=== PATIENT | male | born 1940 | race Caucasian/White ===

== ENCOUNTER 2017-07-31 11:28 | Observation (INO) | payer OTHER ==
--- OUTSIDE RECORDS SUMMARY | 2017-07-31 11:30 | XMS REPORT | Clinical Summary ---
:1940 Author Organization [facility] Address [address] [address] Phone Care Team Providers Name Role Phone Unavailable Primary Care Provider Unavailable Allergies Active Allergy Reactions Severity Noted Date Comments Iodine And Iodide Containing Products Hives 09/25/2013 Current Medications Prescription Sig. Disp. Refills Start End Date Status Date multivitamin capsule Take 1 capsule Active by mouth daily. metoprolol (TOPROL-XL) Take 50 mg by Active 50 MG 24 hr tablet mouth 2 (two) times daily. folic acid (FOLVITE) Take 400 mcg Active 800 MCG tablet by mouth daily. lisinopril Take 2.5 mg by Active (PRINIVIL,ZESTRIL) 2.5 mouth daily. MG tablet cyanocobalamin, Place 1 tablet Active vitamin B-12, (VITAMIN under the B-12) 1,000 mcg Subl tongue. omega-3 fatty Take 1 g by Active acids-fish oil mouth daily. 340-1,000 mg Cap per capsule allopurinol (ZYLOPRIM) Take 100 mg by Active 100 MG tablet mouth daily . cycloSPORINE Place 1 drop Active (RESTASIS) 0.05 % into both eyes ophthalmic emulsion every 12 (twelve) hours. travoprost (TRAVATAN Place 1 drop Active Z) 0.004 % Drop into both eyes ophthalmic drops nightly. rivaroxaban (XARELTO) Take 15 mg by Active 15 mg Tab tablet mouth daily as needed Take only when traveling on airplane. . VIT A/VIT C/VIT Take 1 capsule Active E/ZINC/COPPER (ICAPS by mouth daily AREDS ORAL) A-Red capsule daily. . mycophenolate Take 1 capsule 180 capsule 3 Active (CELLCEPT) 250 mg (250 mg total) 6 capsuleIndications: by mouth 2 Status post liver (two) times transplantation (HCC) daily. mycophenolate Take 1 capsule 180 capsule 3 02/03/20 Active (CELLCEPT) 250 mg (250 mg total) 7 18 capsuleIndications: by mouth 2 Status post liver (two) times transplantation (HCC) daily. sirolimus (RAPAMUNE) 1 Take 1 tablet 90 tablet 3 04/27/19 Active MG tablet (1 mg total) 8 19 by mouth daily. mycophenolate Take 1 capsule 180 capsule 3 02/03/20 Discontinued (CELLCEPT) 250 mg (250 mg total) 4 17 capsuleIndications: by mouth 2 Status post liver (two) times transplantation (HCC) daily. sirolimus (RAPAMUNE) 1 Take 1 tablet 90 tablet 3 04/27/19 Discontinued MG tabletIndications: (1 mg total) 5 18 Status post liver by mouth transplantation (HCC), daily. Immunosuppression (HCC), Chronic renal insufficiency, stage 2 (mild) sirolimus (RAPAMUNE) 1 Take 1 tablet 90 tablet 3 04/27/19 Discontinued MG tabletIndications: (1 mg total) 7 18 Status post liver by mouth transplantation (HCC) daily. sirolimus (RAPAMUNE) 1 Take 1 tablet 90 tablet 3 04/25/19 Discontinued MG tablet (1 mg total) 7 18 by mouth daily. sirolimus (RAPAMUNE) 1 Take 1 tablet 90 tablet 3 04/27/19 Discontinued MG tablet (1 mg total) 8 18 by mouth daily. sirolimus (RAPAMUNE) 1 Take 1 tablet 90 tablet 3 04/27/19 Discontinued MG tablet (1 mg total) 8 18 by mouth daily. 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 Ulcerative colitis (HCC) 10/13/2014 Last Assessment & Plan: He had ulcerative colitis s/p colectomy with J-pouch. We have referred him to a [facility] IBD specialist. Chronic renal insufficiency 10/13/2014 Last Assessment & Plan: He is followed by Dr. 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 Continue follow-up. 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 Synthetic function of the allograft is well preserved. HTN (hypertension) 09/26/2013 Last Assessment & Plan: Blood pressures elevated. Patient has follow-up with Dr. Taylor. Diabetes (HCC) 09/26/2013 Last Assessment & Plan: Well controlled on current regimen. Immunosuppression (HCC) 09/26/2013 Last Assessment & Plan: He is on sirolimus and Cellcept. Screening for skin cancer 09/26/2013 Last Assessment & Plan: Patient has regular follow up with a children's choir director to evaluate and biopsy abnormal skin lesions. Screening for rectal cancer 09/26/2013 Last Assessment & Plan: Patient has regular surveillance. He sees Dr. Wilcox. He is due for sigmoidoscopy this upcoming year. Encounters Date Type Specialty Care Team Description 06/28/2017 Telephone Transplant Laurie, Lab Results Hepatology Shira Raymundo 06/16/2017 Orders Only Transplant Johan, Hepatology Milena Maier MD 05/02/2017 Orders Only Transplant Dori Duque, Hepatology RN 04/27/2017 Orders Only Transplant Dori Duque, Hepatology RN 04/25/2017 Refill Transplant Dori Duque, Hepatology RN 04/23/2017 Refill Transplant Trenton Galvan Hepatology MD 02/02/2017 Telephone Transplant Dori Duque, Medication Refill Hepatology RN (Cellcept) 01/30/2017 Refill Transplant Teagan Brian Hepatology MD Vivek 11/01/2016 [facility] Teagan Brian Status post liver Encounter MD Vivek transplantation (HCC);Immunosuppressio n (HCC);Chronic renal insufficiency, unspecified stage;Complication of transplanted liver, unspecified complication (HCC) 11/01/2016 Hospital Radiology Teagan Brian Status post liver Encounter MD Vivek transplantation (HCC);Immunosuppressio n (HCC);Chronic renal insufficiency, unspecified stage;Complication of transplanted liver, unspecified complication (HCC) 11/01/2016 Follow-Up Transplant Teagan Brian Status post liver Hepatology MD Vivek transplantation (HCC) (Primary Dx);Immunosuppression (HCC);Skin cancer;Chronic renal insufficiency, unspecified stage;Ulcerative colitis with complication, unspecified location (HCC) 11/01/2016 Outside Orders Teagan Brian MD 10/31/2016 Telephone Transplant Laurie, Lab Results Hepatology Shira M 10/24/2016 Orders Only Transplant Trenton Galvan Hepatology 08/31/2016 Orders Only Transplant Dori Duque, Status post liver Hepatology RN transplantation (HCC) (Primary Dx);Immunosuppression (HCC);Chronic renal insufficiency, unspecified stage;Complication of transplanted liver, unspecified complication (HCC) after 07/30/2016 Social History Tobacco Use Types Packs/Day Years Used Date Never Smoker Alcohol Use Drinks/Week oz/Week Comments No Sex Assigned at Date Recorded Not on file Last Filed Vital Signs Vital Sign Reading Time Taken Blood Pressure 136/85 11/01/2016 8:31 AM CDT Pulse 90 11/01/2016 8:31 AM CDT Temperature 36.3 C (97.3 F) 11/01/2016 8:31 AM CDT Respiratory Rate 16 11/01/2016 8:31 AM CDT Oxygen Saturation 98% 11/01/2016 8:31 AM CDT Inhaled Oxygen Concentration - - Weight 90.1 kg (198 lb 11.2 oz) 11/01/2016 8:31 AM CDT Height 177.8 cm (5' 10") 11/01/2016 8:31 AM CDT Body Mass Index 28.51 11/01/2016 8:31 AM CDT Plan of Treatment Health Maintenance Due Date Last Done Comments INFLUENZA VACCINE 01/08/2018 Results Sirolimus level (06/16/2017 9:26 AM)Only the most recent of2 resultswithin the time period is included. Component Value Ref Range Rapamycin Trough 4.6 3.0 - 18.0 mcg/L Comment: This test was developed and its analytical performance characteristics have been determined by [employer] [facility]. It has not been cleared or approved by the US Food and Drug Administration. This assay has been validated pursuant to the CLIA regulations and is used for clinical purposes. Specimen Performing Laboratory [facility] [address] [facility] [place] [address] Narrative FASTING:YES FASTING: YES CBC with platelet count + automated diff (06/16/2017 9:26 AM)Only the most recent of2 resultswithin the time period is included. Component Value Ref Range WBC 5.6 3.8 - 10.8 Thousand/uL RBC 4.96 4.20 - 5.80 Million/uL Hemoglobin 14.5 13.2 - 17.1 g/dL Hematocrit 42.9 38.5 - 50.0 % MCV 86.5 80.0 - 100.0 fL MCH 29.2 27.0 - 33.0 pg MCHC 33.8 32.0 - 36.0 g/dL RDW 13.6 11.0 - 15.0 % Platelets 175 140 - 400 Thousand/uL MPV 9.9 7.5 - 12.5 fL # Neutros 3814 1500 - 7800 cells/uL # Lymphs 1305 850 - 3900 cells/uL # Monos 370 200 - 950 cells/uL # Eos 90 15 - 500 cells/uL # Baso 22 0 - 200 cells/uL % Neutros 68.1 % % Lymphs 23.3 % % Monos 6.6 % % Eos 1.6 % % Baso 0.4 % Specimen Performing Laboratory [facility] [address] [place] [id number] Narrative FASTING:YES FASTING: YES Magnesium (06/16/2017 9:26 AM)Only the most recent of2 resultswithin the time period is included. Component Value Ref Range Magnesium, Serum 1.8 1.5 - 2.5 mg/dL Specimen Performing Laboratory [facility] [address] [place] [id number] Narrative FASTING:YES FASTING: YES Hepatic function panel (06/16/2017 9:26 AM)Only the most recent of2 resultswithin the time period is included. Component Value Ref Range Protein, Total, Serum 6.5 6.1 - 8.1 g/dL Albumin 3.9 3.6 - 5.1 g/dL GLOBULIN ([facility]) 2.6 1.9 - 3.7 g/dL (calc) Albumin Globulin Ratio 1.5 1.0 - 2.5 (calc) Bilirubin, Total 0.8 0.2 - 1.2 mg/dL Bilirubin, Direct 0.2 < OR=0.2 mg/dL Bilirubin, Indirect 0.6 0.2 - 1.2 mg/dL (calc) Alkaline Phosphatase, S 68 40 - 115 U/L AST (SGOT) 15 10 - 35 U/L ALT (SGPT) 10 9 - 46 U/L Specimen Performing Laboratory [facility] [address] [facility] [place] [address] Narrative FASTING:YES FASTING: YES Basic Metabolic Panel (06/16/2017 9:26 AM)Only the most recent of2 resultswithin the time period is included. Component Value Ref Range Glucose 94 65 - 99 mg/dL Comment: Fasting reference interval BUN 29 (H) 7 - 25 mg/dL Creatinine 1.76 (H) 0.70 - 1.18 mg/dL Comment: For patients >49 years of age, the reference limit for Creatinine is approximately 13% higher for people identified as -Grenadian. eGFR If NonAfricn Am 37 (L) > OR=60 mL/min/1.73m2 eGFR If Africn Am 43 (L) > OR=60 mL/min/1.73m2 BUN/Creatinine Ratio 16 6 - 22 (calc) Sodium 140 135 - 146 mmol/L Potassium, Serum 4.3 3.5 - 5.3 mmol/L Chloride 110 98 - 110 mmol/L Carbon Dioxide, Total 23 20 - 31 mmol/L Calcium, Serum 8.8 8.6 - 10.3 mg/dL Specimen Performing Laboratory [facility] [address] [facility] [place] [address] Narrative FASTING:YES FASTING: YES US abdominal with doppler (11/01/2016 10:50 AM) Specimen Performing Laboratory [facility] Narrative FINAL REPORT Ultrasound of the Abdomen and Doppler evaluation Clinical History: Liver transplant Discussion: Sonographic evaluation of the abdomen is performed. In addition, color Doppler and spectral wave form analysis evaluations of the abdominal vasculature are performed. Liver: 14 point 4 cm in length at the right midclavicular line. Normal echogenicity.No lesion is identified by ultrasound.Main portal vein diameter 1.1 cm. Biliary tree:Common duct 7 mm.No biliary dilatation Gallbladder:Absent. Pancreas: Partially visualized, unremarkable. Ascites:None seen Spleen: 11.5 cm in length. Kidneys: Right kidney 11.5 x 5.3 x 5.3 cm.Left kidney 10.2 x 5.2 x 5 cm.Mildly increased cortical echogenicity. Both kidneys demonstrate cortical thinning. In the right kidney, there is a 1.7 x 1.4 x 1.6 cm cyst. In the left kidney, there is a 1.7 x 0.8 x 1.3 cm cyst, and a 6 mm nonobstructive stone with shadowing.No hydronephrosis. IVC/Aorta:Segments partially seen.Unremarkable Doppler: The peak systolic velocity of the main portal vein is 29 cm/sec, within normal limits. The main portal, right portal, and left portal veins demonstrate normal direction of flow, hepatopetal. The splenic vein is visualized at the portal venous confluence and demonstrate normal direction of flow, hepatopetal. The proper hepatic, right hepatic, and left hepatic arteries demonstrate normal arterial wave forms and resistive indices, measuring 0.59, 0.62 and 0.58 respectively. The proper hepatic artery demonstrates normal acceleration time, acceleration index, and systolic upstroke. Segments of the right hepatic, middle hepatic, and left hepatic veins visualized demonstrate flow and phasic venous waveforms. Impression: Unremarkable sonographic and Doppler evaluation of the transplanted liver. Echogenic kidneys with cortical thinning, suggestive of medical renal disease. There is a 6 mm nonobstructive stone in the left kidney. Signed: Filipe Guzman MD Report Verified Date/Time:11/01/2016 15:55:46 Reading Location: [address] Radiology Reading Room Procedure Note Interface, External Ris In - 11/01/2016 3:57 PM CDT FINAL REPORT Ultrasound of the Abdomen and Doppler evaluation Clinical History: Liver transplant Discussion: Sonographic evaluation of the abdomen is performed. In addition, color Doppler and spectral wave form analysis evaluations of the abdominal vasculature are performed. Liver: 14 point 4 cm in length at the right midclavicular line. Normal echogenicity. No lesion is identified by ultrasound. Main portal vein diameter 1.1 cm. Biliary tree: Common duct 7 mm. No biliary dilatation Gallbladder: Absent. Pancreas: Partially visualized, unremarkable. Ascites: None seen Spleen: 11.5 cm in length. Kidneys: Right kidney 11.5 x 5.3 x 5.3 cm. Left kidney 10.2 x 5.2 x 5 cm. Mildly increased cortical echogenicity. Both kidneys demonstrate cortical thinning. In the right kidney, there is a 1.7 x 1.4 x 1.6 cm cyst. In the left kidney, there is a 1.7 x 0.8 x 1.3 cm cyst, and a 6 mm nonobstructive stone with shadowing. No hydronephrosis. IVC/Aorta: Segments partially seen. Unremarkable Doppler: The peak systolic velocity of the main portal vein is 29 cm/sec, within normal limits. The main portal, right portal, and left portal veins demonstrate normal direction of flow, hepatopetal. The splenic vein is visualized at the portal venous confluence and demonstrate normal direction of flow, hepatopetal. The proper hepatic, right hepatic, and left hepatic arteries demonstrate normal arterial wave forms and resistive indices, measuring 0.59, 0.62 and 0.58 respectively. The proper hepatic artery demonstrates normal acceleration time, acceleration index, and systolic upstroke. Segments of the right hepatic, middle hepatic, and left hepatic veins visualized demonstrate flow and phasic venous waveforms. Impression: Unremarkable sonographic and Doppler evaluation of the transplanted liver. Echogenic kidneys with cortical thinning, suggestive of medical renal disease. There is a 6 mm nonobstructive stone in the left kidney. Signed: Filipe Guzman MD Report Verified Date/Time: 11/01/2016 15:55:46 Reading Location: [address] Radiology Reading Room chest 2 views (11/01/2016 10:01 AM) Specimen Performing Laboratory [facility] Narrative FINAL REPORT TECHNIQUE: Frontal and lateral chest radiographs dated 11/01/2016. CLINICAL HISTORY: Liver transplant COMPARISON STUDY: Chest radiograph dated 11/02/2015 FINDINGS: Lungs are clear. No pleural effusion or pneumothorax. Cardiomediastinal silhouette is normal in size. No pulmonary edema. Bones appear osteopenic. No fracture. IMPRESSION: Clear lungs. Signed: Maddy Myrick MD Report Verified Date/Time:11/01/2016 11:40:45 Reading Location: [facility] Radiology Reading Room Procedure Note Interface, External Ris In - 11/01/2016 11:42 AM CDT FINAL REPORT TECHNIQUE: Frontal and lateral chest radiographs dated 11/01/2016. CLINICAL HISTORY: Liver transplant COMPARISON STUDY: Chest radiograph dated 11/02/2015 FINDINGS: Lungs are clear. No pleural effusion or pneumothorax. Cardiomediastinal silhouette is normal in size. No pulmonary edema. Bones appear osteopenic. No fracture. IMPRESSION: Clear lungs. Signed: Maddy Myrick MD Report Verified Date/Time: 11/01/2016 11:40:45 Reading Location: [facility] Radiology Reading Room Lipid panel (10/24/2016 7:27 AM) Component Value Ref Range Cholesterol, Total 180 125 - 200 mg/dL HDL Cholesterol 27 (L) > OR=40 mg/dL Triglycerides 242 (H) <150 mg/dL LDL Cholesterol 105 <130 mg/dL (calc) Comment: Desirable range <100 mg/dL for patients with CHD or diabetes and <70 mg/dL for diabetic patients with known heart disease. Chol/HDL Ratio 6.7 (H) < OR=5.0 (calc) Non-HDL Cholesterol 153 mg/dL (calc) Comment: Target for non-HDL cholesterol is 30 mg/dL higher than LDL cholesterol target. Specimen Performing Laboratory [facility] [address] [place] [address] Narrative FASTING:YES after 07/30/2016
--- NOTE | 2017-07-31 12:40 | RAD REPORT ---
EXAM DESCRIPTION: RAD - Chest Single View - 07/31/2017 12:28 pm CLINICAL HISTORY: Chest pain COMPARISON: None. TECHNIQUE: AP portable chest image was obtained 1213 hours . FINDINGS: Lungs are clear. Heart and vasculature are normal. No measurable pleural effusion and no p neumothorax. No gross bony abnormality seen. No acute aortic findings suspected. IMPRESSION: No acute cardiopulmonary process.
[2017-07-31 13:27] LABS: Absolute Lymphocytes (CBC) 1.4 K/uL (0.7-4.9); Absolute Monocytes 0.6 K/uL (0.1-1.3); Absolute Neutrophil 8.9 K/uL (1.8-8.0); Basophils % 0.4 % (0-1.3); Hematocrit 42.7 % (39.6-49.0); Lymphocytes % 12.6 % (15.3-44.8); MCH 29.3 pg (27.0-35.0); MCV 89.7 fL (80-100); MPV 7.7 fL (7.6-11.3); Monocytes % 5.3 % (3.3-12.3); RBC Red Blood Cell Count 4.76 M/uL (4.33-5.43)
[2017-07-31 13:28] LABS: Potassium 4.8 mEq/L (3.6-5.0)
[2017-07-31 13:34] LABS: Albumin 3.5 g/dL (3.2-5.5); Bilirubin Direct 0.1 mg/dL (0-0.2); Bilirubin Total 0.7 mg/dL (0.3-1.2); Magnesium 1.9 mg/dL (1.8-2.5); Protein, Total 6.8 g/dL (6.0-8.3)
[2017-07-31 13:37] LABS: CKMB Creatine Kinase MB 2.4 ng/ml (0.3-4.0)
--- NOTE | 2017-07-31 13:51 | EKG ---
Test Date: 2017-07-31 Test Time: 11:58:27 Apartment Leasing Manager: YOLI MEASUREMENT RESULTS: Intervals: Rate: 44 TX: 208 QRSD: 92 QT: 422 QTc: 360 [place]: P: 63 TX: 208 QRS: 54 T: 73 INTERPRETIVE STATEMENTS: Marked sinus bradycardia with marked sinus arrhythmia Incomplete right bundle branch block Abnormal ECG Compared to ECG 06/05/2002 20:48:00 Incomplete right bundle-branch block now present Sinus rhythm no longer present Myocardial infarct finding no longer present Electronically Signed On 07-31-17 13:50:49 CDT by Solomon Nolan
[2017-07-31] MEDS ORDERED: MORPHINE 4 MG/ML SYR ONE ×2 (14:18→14:34)
--- NOTE | 2017-07-31 14:54 | ER ---
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 Transition of care: patient was not received from another setting of care. Onset of symptoms was July 31, 2017. Initial Sepsis Screen: Does the patient meet any 2 criteria? No. Patient's initial sepsis screen is negative. Does the patient have a suspected source of infection? No. Patient's initial sepsis screen is negative. Care prior to arrival: IV initiated. 20 GA, in the right wrist, Glucose check: 154 Oxygen administered. via nasal cannula. 11:41 Method Of Arrival: EMS: [facility] iw 11:41 Acuity: LIV 3 iw Historical: - Allergies: 11:50 Iodinated Contrast Media - IV Dye; iw - Home Meds: 11:50 Prograf Oral [Active]; iw 16:36 tamsulosin 0.4 mg oral cp24 1 cap once daily [Active]; metoprolol succinate 25 mg oral ph Tb24 1 tab once daily [Active]; lisinopril 2.5 mg Oral tab 1 tab once daily [Active]; allopurinol 100 mg Oral tab 1 tab 2 times per day [Active]; sirolimus 1 mg oral tab 1 tabs once daily [Active]; CellCept 250 mg Oral cap 1 caps daily [Active]; - PMHx: 11:50 Renal Disease; colon cancer; pulmonary embolism; iw - PSHx: 11:50 Liver Transplant; ileo pouch; Hernia repair; Appendectomy; rectum removed; iw Tonsillectomy; - Immunization history:: Adult Immunizations not up to date, . - Social history:: Smoking status: Patient/guardian denies using tobacco. Screenin:33 Abuse screen: Denies threats or abuse. Denies injuries from another. Nutritional ph screening: No deficits noted. Tuberculosis screening: No symptoms or risk factors identified. Fall Risk None identified. Assessment: 12:00 General: Appears in no apparent distress. comfortable, slender, well groomed, Behavior ph is calm, cooperative, appropriate for age, Denies fever, feeling ill, fatigue. Pain: Denies pain. Neuro: Level of Consciousness is awake, alert, obeys commands, Oriented to person, place, time, situation. Cardiovascular: Reports chest pain in L breast area EXHIBITS COORDINATOR, reports that pain has improved after pain medication administered by EMS Capillary refill < 3 seconds Patient's skin is warm and dry. Rhythm is irregular. Respiratory: Airway is patent Respiratory effort is even, unlabored, Respiratory pattern is regular, symmetrical, Denies shortness of breath. GI: No signs and/or symptoms were reported involving the gastrointestinal system. Derm: Skin is intact, is healthy with good turgor, Skin is pink, warm \\T\\ dry. Musculoskeletal: Circulation, motion, and sensation intact. Range of motion: limited in all extremities. 13:00 Reassessment: Patient appears in no apparent distress at this time. Patient and/or ph family updated on plan of care and expected duration. Pain level reassessed. Patient is alert, oriented x 3, equal unlabored respirations, skin warm/dry/pink. secured entrance monitor shows pt's HR dropping to 40's, pt reports that HR is usually 60's, ERP aware and at bedside, pt denies dizziness or SOB but reports that chest pain is returning, rates pain 4/10, at bedside. Vital Signs: 11:47 BP 144 / 79; Pulse 63; Resp 18; Temp 98.2; Pulse Ox 95% on R/A; Weight 85.73 kg; Height iw 5 ft. 10 in. (177.80 cm); Pain 0/10; 12:30 BP 124 / 62; Pulse 57; Resp 18; Pulse Ox 96% on R/A; ph 13:35 BP 132 / 70; Pulse 55; Resp 18; Pulse Ox 97% on R/A; Pain 4/10; ph 14:30 BP 148 / 90; Pulse 49; Resp 16; Pulse Ox 95% on R/A; ph 14:30 BP 151 / 64; Pulse 57; Resp 16; Pulse Ox 98% on R/A; ph 16:37 BP 134 / 72; Pulse 50; Resp 18; Temp 97.9; Pulse Ox 96% on R/A; ph 11:47 Body Mass Index 27.12 (85.73 kg, 177.80 cm) ED Course: 11:41 Patient arrived in ED. iw 11:46 Lavon Jimenez NP is PHCP. pm1 11:46 Sahil Gimenez MD is Attending Physician. pm1 11:46 Triage completed. iw 11:51 Arm band placed on. iw 12:02 EKG done, by cytotechnologist/cytology supervisor. reviewed by Lavon Jimenez NP. at1 12:25 X-ray completed. Portable x-ray completed in exam room. Patient tolerated procedure ml well. 12:26 XRAY Chest (1 view) In Process Unspecified. EDMS 13:04 Initial lab(s) drawn, by mi, sent to lab. Inserted saline lock: 20 gauge in left dh3 antecubital area, using aseptic technique. Blood collected. 13:04 IV discontinued, EMS IV right wrist. dh3 13:30 Yoselyn Olson, MAYLIN is Primary Nurse. ph 13:33 Patient has correct armband on for positive identification. Bed in low position. Call ph light in reach. Side rails up X 1. secured entrance monitor on. Pulse ox on. NIBP on. Warm blanket given. 14:54 Judah Rojas MD is Hospitalizing Provider. pm1 14:55 Urine collected: clean catch specimen, clear. dh3 16:18 Notified Nurse Practitioner and/or Physician Director Of Radio Services of a critical lab result(s), pt D-Dimer of 1495 to Lavon REESE. 16:33 Note: VQ SCAN COMPLETE. PT TOLERATED EXAM WELL. NO CHANGE. RETURNED TO ED. NURSE ml NOTIFIED. RT LEONIE(N), JOSE. Administered Medications: 14:49 Drug: morphine 4 mg Route: IVP; Site: left antecubital; ph Outcome: 14:54 Decision to Hospitalize by Provider. pm1 18:03 Patient left the ED. ph Signatures: Dispatcher [employer] EDNM Michelle Abernathy, MAYLIN RN pt Ramya Foster RN RN iw Samara Lancaster Amanda, knitted goods shaper EKG Tat1 Yoselyn Olson, RN RN ph Lvaon Jimenez, WARD SERVICE SUPERVISOR WARD SERVICE SUPERVISOR pm1 Janae Watkins 3
--- NOTE | 2017-07-31 14:55 | EDPHYS ---
Physician Documentation [facility] Name: Yoni Shi Age: 76 yrs Sex: Male : 1940 Arrival Date: 07/31/2017 Time: 11:41 Bed 13 Private MD: ED Physician Sahil Gimenez HPI: 07/31 12:00 This 76 yrs old Male presents to ER via EMS with complaints of Chest Pain. pm1 12:00 The patient or guardian reports chest pain that is located primarily in the anterior pm1 chest wall, left. Onset: just prior to arrival. The pain radiates to left back. Associated signs and symptoms: Pertinent positives: diaphoresis, nausea, shortness of breath, Pertinent negatives: abdominal pain, palpitations, vomiting. The chest pain is described as squeezing. Duration: The patient or guardian reports a single episode, that is still ongoing, but improving, 2/10 pain. Modifying factors: The symptoms are alleviated by NTG x 2 and fentanyl in route by EMS. Severity of pain: At its worst the pain was a 10 / 10 in the emergency department the pain has improved markedly, is a 2 / 10. EMS care prior to arrival includes: aspirin, nitroglycerin, x 2 fentanyl . The patient has experienced a previous episode, approximately 3 years ago, Similar symptoms to prior PE. The patient has been recently seen by a physician: the patient's primary care provider, Dr. Rojas with different complaint(s). 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 As he was leaving he started having severe 10/10 left sided chest pain radiating to his left back area. SOB and diaphoresis present with chest pain. Pain improved with medications, NTG and fentanyl, given by EMS on arrival. Historical: - Allergies: 11:50 Iodinated Contrast Media - IV Dye; iw - Home Meds: 11:50 Prograf Oral [Active]; iw 16:36 tamsulosin 0.4 mg oral cp24 1 cap once daily [Active]; metoprolol succinate 25 mg oral ph Tb24 1 tab once daily [Active]; lisinopril 2.5 mg Oral tab 1 tab once daily [Active]; allopurinol 100 mg Oral tab 1 tab 2 times per day [Active]; sirolimus 1 mg oral tab 1 tabs once daily [Active]; CellCept 250 mg Oral cap 1 caps daily [Active]; - PMHx: 11:50 Renal Disease; colon cancer; pulmonary embolism; iw - PSHx: 11:50 Liver Transplant; ileo pouch; Hernia repair; Appendectomy; rectum removed; iw Tonsillectomy; - Immunization history:: Adult Immunizations not up to date, . - Social history:: Smoking status: Patient/guardian denies using tobacco. ROS: 12:00 Constitutional: Negative for fever, chills, and weight loss, Eyes: Negative for injury, pm1 pain, redness, and discharge, ENT: Negative for injury, pain, and discharge, Neck: Negative for injury, pain, and swelling. 12:00 Abdomen/GI: Negative for abdominal pain, nausea, vomiting, diarrhea, and constipation, : Negative for injury, bleeding, discharge, and swelling, MS/Extremity: Negative for injury and deformity, Skin: Negative for injury, rash, and discoloration. 12:00 Neuro: Negative for headache, weakness, numbness, tingling, and seizure. 12:00 Cardiovascular: Positive for chest pain, Negative for edema, palpitations. 12:00 Respiratory: Positive for shortness of breath, Negative for cough, wheezing. 12:00 Back: Positive for of the left subscapular area, Radiated from left sided chest pain. Exam: 12:00 Constitutional: This is a well developed, well nourished patient who is awake, alert, pm1 and in no acute distress. Head/Face: Normocephalic, atraumatic. Eyes: Pupils equal round and reactive to light, extra-ocular motions intact. Lids and lashes normal. Conjunctiva and sclera are non-icteric and not injected. Cornea within normal limits. Periorbital areas with no swelling, redness, or edema. ENT: Nares patent. No nasal discharge, no septal abnormalities noted. Tympanic membranes are normal and external auditory canals are clear. Oropharynx with no redness, swelling, or masses, exudates, or evidence of obstruction, uvula midline. Mucous membranes moist. Neck: Trachea midline, no thyromegaly or masses palpated, and no cervical lymphadenopathy. Supple, full range of motion without nuchal rigidity, or vertebral point tenderness. No Meningismus. Chest/axilla: Normal chest wall appearance and motion. Nontender with no deformity. No lesions are appreciated. Cardiovascular: Regular rate and rhythm with a normal S1 and S2. No gallops, murmurs, or rubs. No pulse deficits. Respiratory: Lungs have equal breath sounds bilaterally, clear to auscultation and percussion. No rales, rhonchi or wheezes noted. No increased work of breathing, no retractions or nasal flaring. Abdomen/GI: Soft, non-tender, with normal bowel sounds. No distension or tympany. No guarding or rebound. No evidence of tenderness throughout. Back: No spinal tenderness. No costovertebral tenderness. Full range of motion. Skin: Warm, dry with normal turgor. Normal color with no rashes, no lesions, and no evidence of cellulitis. MS/ Extremity: Pulses equal, no cyanosis. Neurovascular intact. Full, normal range of motion. 12:00 Neuro: Orientation: is normal, Mentation: is normal, Motor: is normal, moves all fours. Vital Signs: 11:47 BP 144 / 79; Pulse 63; Resp 18; Temp 98.2; Pulse Ox 95% on R/A; Weight 85.73 kg; Height iw 5 ft. 10 in. (177.80 cm); Pain 0/10; 12:30 BP 124 / 62; Pulse 57; Resp 18; Pulse Ox 96% on R/A; ph 13:35 BP 132 / 70; Pulse 55; Resp 18; Pulse Ox 97% on R/A; Pain 4/10; ph 14:30 BP 148 / 90; Pulse 49; Resp 16; Pulse Ox 95% on R/A; ph 14:30 BP 151 / 64; Pulse 57; Resp 16; Pulse Ox 98% on R/A; ph 16:37 BP 134 / 72; Pulse 50; Resp 18; Temp 97.9; Pulse Ox 96% on R/A; ph 11:47 Body Mass Index 27.12 (85.73 kg, 177.80 cm) iw MDM: 11:47 Patient medically screened. pm1 14:53 Data reviewed: vital signs. Data interpreted: Pulse oximetry: on room air is 97 %. pm1 Interpretation: normal. Counseling: I had a detailed discussion with the patient and/or guardian regarding: the historical points, exam findings, and any diagnostic results supporting the discharge/admit diagnosis, lab results, radiology results, the need for further work-up and treatment in the hospital. 15:00 Physician consultation: Judah Rojas MD was called at 14:50, was contacted at 14:50, pm1 regarding admission, patient's condition, and will see patient in inpatient room, would like consultation with Cardiology, would like further tests performed, Would like D-dimer drawn. If negative D-dimer then cancel VQ Scan. If positive D-dimer, then put order for VQ scan. 07/31 11:57 Order name: Basic Metabolic Panel pm1 07/31 11:57 Order name: BNP; Complete Time: 13:45 pm1 07/31 11:57 Order name: CBC with Diff; Complete Time: 13:45 pm1 07/31 11:57 Order name: Ckmb; Complete Time: 13:45 pm1 07/31 11:57 Order name: CPK; Complete Time: 13:45 pm1 07/31 11:57 Order name: LFT's; Complete Time: 13:45 pm1 07/31 11:57 Order name: Magnesium; Complete Time: 13:45 pm1 07/31 11:57 Order name: PT-INR; Complete Time: 13:45 pm1 07/31 11:57 Order name: Ptt, Activated; Complete Time: 13:45 pm1 07/31 11:57 Order name: Troponin (emerg Dept Use Only); Complete Time: 13:45 pm1 07/31 11:57 Order name: Basic Metabolic Panel; Complete Time: 13:45 EDMS 07/31 14:54 Order name: D-Dimer; Complete Time: 16:22 pm1 07/31 16:22 Interpretation: D-DIMER 1495. pm1 07/31 15:24 Order name: Urine Dipstick--Ancillary (enter results) bd 07/31 15:47 Order name: Urine Dipstick-Ancillary; Complete Time: 16:15 EDMS 07/31 11:57 Order name: XRAY Chest (1 view); Complete Time: 13:14 pm1 07/31 11:57 Order name: EKG; Complete Time: 11:58 pm1 07/31 11:57 Order name: Cardiac monitoring; Complete Time: 13:06 pm1 07/31 11:57 Order name: EKG - Nurse/Tech; Complete Time: 13:06 pm1 07/31 11:57 Order name: IV Saline Lock; Complete Time: 13:06 pm1 07/31 11:57 Order name: Labs collected and sent; Complete Time: 13:06 pm1 07/31 11:57 Order name: O2 Per Protocol; Complete Time: 13:06 pm1 07/31 11:57 Order name: O2 Sat Monitoring; Complete Time: 13:06 pm1 07/31 11:57 Order name: Urine Dipstick-Ancillary (obtain specimen); Complete Time: 14:49 pm1 07/31 14:23 Order name: Vent Perfusion VQ Scan; Complete Time: 16:48 EDMS Administered Medications: 14:49 Drug: morphine 4 mg Route: IVP; Site: left antecubital; ph Disposition: 07/31/17 14:54 Hospitalization ordered by Judah Rojas for Observation. Preliminary diagnosis is Chest pain, unspecified. - Bed requested for Telemetry/MedSurg (observation). - Status is Observation. ph - Condition is Stable. - Problem is new. - Symptoms have improved. UTI on Admission? No Signatures: Dispatcher [employer] EDMS Ramya Foster, MAYLIN CARLISLE Yoselyn Olson RN RN ph Marinas, Patrick, NORMA [employer]ABLE [employer] pm1 Julissa Cuevas RN RN df
[2017-07-31 15:46] LABS: Urine Blood NEGATIVE (NEG); Urine Glucose NEGATIVE (NEG); Urine Protein 1+ (NEG)
--- NOTE | 2017-07-31 16:43 | RAD REPORT ---
EXAM DESCRIPTION: NM - Vent Perfusion VQ Scan - 07/31/2017 4:24 pm CLINICAL HISTORY: Chest pain and shortness of breath COMPARISON: July 31, 2017 chest x-ray TECHNIQUE: 13.9 Mci Xe133 was administered by inhalation. First breath, equilibrium, and washout images of the l ungs were taken 6.9 millicuries Technetium-99 MAA was administered intravenously. Anterior, posterior, lateral and ob lique views of the lungs were taken. FINDINGS: Several small defects are present within the lungs bilaterally which are matched on ventil ation perfusion images. No mismatched segmental or lobar perfusion defects are seen. IMPRESSION: The patient has a low probability for a pulmonary embolus
[2017-07-31] MEDS ORDERED: Morphine 2 MG/2 ML SYR IV PRN (17:20)
[2017-07-31] MEDS ORDERED: ONDANSETRON 4 MG/2 ML VIAL IV PRN (17:20)
[2017-07-31] MEDS ORDERED: ACETAMINOPHEN 500 MG TAB PO PRN (17:20)
[2017-07-31] MEDS: MYCOPHENOLATE 250 MG PO SCH (20:27)
[2017-08-01 05:00] LABS: Absolute Lymphocytes (CBC) 1.8 K/uL (0.7-4.9); Absolute Monocytes 0.7 K/uL (0.1-1.3); Absolute Neutrophil 6.1 K/uL (1.8-8.0); Basophils % 0.7 % (0-1.3); Eosinophils % 1.3 % (0-4.4); Hematocrit 41.4 % (39.6-49.0); Lymphocytes % 20.5 % (15.3-44.8); MCH 29.5 pg (27.0-35.0); MCV 89.8 fL (80-100); MPV 7.9 fL (7.6-11.3); RBC Red Blood Cell Count 4.61 M/uL (4.33-5.43)
[2017-08-01 05:01] LABS: Potassium 4.2 mEq/L (3.6-5.0)
[2017-08-01] MEDS: MYCOPHENOLATE 250 MG PO SCH (09:00)
[2017-08-01] MEDS ORDERED: ASPIRIN EC 81 MG TAB PO SCH (09:00)
[2017-08-01] MEDS ORDERED: SIROLIMUS 1 MG PO SCH (09:00)
--- NOTE | 2017-08-01 11:25 | EKG ---
Test Date: 2017-08-01 Test Time: 08:40:48 Area Counselor: YOLI MEASUREMENT RESULTS: Intervals: Rate: 68 WI: 220 QRSD: 92 QT: 402 QTc: 427 Laie: P: 76 WI: 220 QRS: 81 T: 80 INTERPRETIVE STATEMENTS: Sinus rhythm with 1st degree AV block Incomplete right bundle branch block Borderline ECG Compared to ECG 07/31/2017 11:58:27 First degree AV block now present Sinus bradycardia no longer present Sinus arrhythmia no longer present Electronically Signed On 08-01-17 11:23:46 CDT by Hunter Kaye
--- NOTE | 2017-08-02 00:25 | HP ---
Date of Admission: 07/31/2017 Chief Complaint: Chest pain. History Of Present Illness: A 76-year-old with multiple medical problems, had an episode of left pre cordial chest pain, following which he was brought to the emergency room. He had extensive workup in cluding nuclear lung scan. There was no evidence of PE, even though he had prior history of possible PE. There was no history of elevated troponin. The patient is admitted for observation. 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 Allergies: IVP DYE. Current Medicines: Please refer to the chart. Review of Systems: No history of fever, chills, or rigors. Physical Examination: General: Revealed 76-year-old male, alert and oriented. HEENT: Negative. Neck: Supple. JVD negative. Chest: Clear. Heart: Regular. Abdomen: Soft, nontender. Extremities: No edema. Laboratory Data: Troponin normal. Nuclear lung scan; low probability of PE. Chest x-ray; no pneumo aquilino. Assessment: 1.Chest pain. 2.Status post liver transplant. 3.Chronic renal insufficiency. 4.History of colon cancer and surgery. Plan: The patient claims to have had a stress test done 3-4 months ago and was negative as per the p atient. The patient's troponin is negative, and he does not have any continued chest pains. Cardiol ogy consultation was done, and the patient was told that he has a low chance of cardiac pathology cau sing his chest pain. He was advised to be discharged to have followup in the office and to use Xarel to intermittently. GUILLERMO/YASMINE Voice ID: [id number]
--- NOTE | 2017-08-02 01:08 | CON ---
Date of Consultation: 08/01/[address] Rojas's service on 07/31/2017. I saw the patient on 08/01/2017. Reason For Consultation: Chest pain. History Of Present Illness: Mr. Shi is a 76-year-old white male. He sees Dr. Taylor at [place] from a cardiology standpoint. He recently had a normal echocardiogram and normal stress test by him. He came in with an atypical pleuritic-type chest pain. No nausea, vomiting, diaphoresis, PND, orth opnea, pedal edema, palpitations, or syncope. Has had a history of pulmonary embolus in the past and he was worried that he had that. Ironically, his D-dimer was 1495, but CT angiogram showed low prob ability. His creatinine was 1.81, which is chronic for him. The CPKs, MBs, troponin, and BNP were n egative. By the time I saw him, he was asymptomatic. His EKG was unremarkable. His chest x-ray was unremarkable. Allergies: HE IS ALLERGIC TO IODINE. Review of Systems: Negative. Social History: Negative. Family History: Noncontributory. Medications At Home: Include metoprolol, Flomax, lisinopril, and allopurinol. Past Medical History: Positive for mild renal insufficiency, history of pulmonary embolus in the pas t, history of liver transplant in 1998, history of hypertension, and history of colon cancer that has been cured. Physical Examination: Vital Signs: Stable. He was afebrile. HEENT: Negative. Neck: Supple. No bruits. Chest: Clear. Cardiac: Revealed a regular rhythm and rate without any murmurs, gallops, or rubs. Abdomen: Benign. Extremities: Revealed no clubbing, cyanosis, or edema. Diagnostic Data: As stated above. Impression And Plan: 1.Atypical chest pain, probably pleuritic. The patient just had a negative echo and negative stress test by Dr. Taylor at [facility] and I do not recommend any further cardiac workup on him. 2.History of pulmonary embolus, elevated D-dimer, negative CT angiogram. 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 3.History of liver transplant. 4.History of hypertension. 5.Allergy to iodine. 6.History of colon cancer that has resolved. 7.History of dyslipidemia and history of benign prostatic hypertrophy as well as history of gout, al l of which are unremarkable at this point. He can go home whenever it is okay with Dr. Rojas. SHARI/YASMINE Voice ID: [id number] Report ID: [id number]
== END 2017-08-01 11:48 | disposition home or self-care (01) ==
LOC: ER 11:28 → ERHOLD 14:58 → 4TH 17:20
PROVIDERS: ADMIT Internal Medicine; ATTEND Internal Medicine
DX: R07.9 Chest pain, unspecified (principal); N18.9 Chronic kidney disease, unspecified; Z85.038 Personal history of other malignant neoplasm of large intestine; Z86.711 Personal history of pulmonary embolism; Z94.4 Liver transplant status; Z91.041 Radiographic dye allergy status
CPT/HCPCS: 36415; 71045; 78582; 80048 ×2; 80076; 81003; 82550; 82553; 83735; 83880; 84484 ×3; 85025 ×2; 85379; 85610; 85730; 93005 ×2; 96374; 99285; A9540; A9558; G0378 ×2

== ENCOUNTER 2018-02-09 15:56 | Observation (INO) | payer OTHER ==
--- OUTSIDE RECORDS SUMMARY | 2018-02-09 16:36 | XMS REPORT | Clinical Summary ---
:1940 Author Organization [facility] Address [address] [place] [address] Care Team Providers Name Role Phone Judah Rizo Primary Care Provider Allergies Active Allergy Reactions Severity Noted Date Comments Iodine And Iodide Containing Products Hives 09/25/2013 Medications Medication Sig Dispensed Refills Start End Date Status Date multivitamin capsule Take 1 0 Active capsule by mouth daily. metoprolol (TOPROL-XL) Take 50 mg by 0 Active 50 MG 24 hr tablet mouth 2 (two) times daily. folic acid (FOLVITE) Take 400 mcg 0 Active 800 MCG tablet by mouth daily. lisinopril Take 2.5 mg 0 Active (PRINIVIL,ZESTRIL) 2.5 by mouth MG tablet daily. cyanocobalamin, Place 1 0 Active vitamin B-12, (VITAMIN tablet under B-12) 1,000 mcg Subl the tongue. omega-3 fatty Take 1 g by 0 Active acids-fish oil mouth daily. 340-1,000 mg Cap per capsule allopurinol (ZYLOPRIM) Take 100 mg 0 Active 100 MG tablet by mouth daily . cycloSPORINE Place 1 drop 0 Active (RESTASIS) 0.05 % into both ophthalmic emulsion eyes every 12 (twelve) hours. travoprost (TRAVATAN Place 1 drop 0 Active Z) 0.004 % Drop into both ophthalmic drops eyes nightly. rivaroxaban (XARELTO) Take 15 mg by 0 Active 15 mg Tab tablet mouth daily as needed Take only when traveling on airplane. . VIT A/VIT C/VIT Take 1 0 Active E/ZINC/COPPER (ICAPS capsule by AREDS ORAL) mouth daily A-Red capsule daily. . mycophenolate Take 1 180 capsule 3 Active (CELLCEPT) 250 mg capsule (250 7 capsuleIndications: mg total) by Status post liver mouth 2 (two) transplantation (HCC) times daily. sirolimus (RAPAMUNE) 1 Take 1 tablet 90 tablet 3 04/27/19 Active MG tablet (1 mg total) 8 19 by mouth daily. sirolimus (RAPAMUNE) 1 Take 1 tablet 90 tablet 3 04/27/19 Discontinued MG tabletIndications: (1 mg total) 5 18 Status post liver by mouth transplantation (HCC), daily. Immunosuppression (HCC), Chronic renal insufficiency, stage 2 (mild) mycophenolate Take 1 180 capsule 3 12/08/19 Discontinued (CELLCEPT) 250 mg capsule (250 6 18 capsuleIndications: mg total) by Status post liver mouth 2 (two) transplantation (HCC) times daily. sirolimus (RAPAMUNE) 1 Take 1 tablet [...] cancer removed in September 2014. Ulcerative colitis 10/13/2014 Last Assessment & Plan: He had ulcerative colitis s/p colectomy with J-pouch. We have referred him to a [facility] IBD specialist. Chronic renal insufficiency 10/13/2014 Last Assessment & Plan: He is followed by Dr. 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 Continue follow-up. 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 Synthetic function of the allograft is well preserved. HTN (hypertension) 09/26/2013 Last Assessment & Plan: Blood pressures elevated. Patient has follow-up with Dr. Taylor. Diabetes 09/26/2013 Last Assessment & Plan: Well controlled on current regimen. Immunosuppression 09/26/2013 Last Assessment & Plan: He is on sirolimus and Cellcept. Screening for skin cancer 09/26/2013 Last Assessment & Plan: Patient has regular follow up with a search advertising strategist to evaluate and biopsy abnormal skin lesions. Screening for rectal cancer 09/26/2013 Last Assessment & Plan: Patient has regular surveillance. He sees Dr. Wilcox. He is due for sigmoidoscopy this upcoming year. Encounters Date Type Specialty Care Team Description 12/07/2017 Follow-Up Transplant Teagan Brian Hepatmiguel Doyle MD 12/07/2017 Abstract Transplant Teagan Brian MD 12/06/2017 Telephone Transplant Shira Sullivan Lab Results Hepatology M 11/27/2017 Orders Only Transplant Airam Prado MD 11/27/2017 Orders Only Transplant Airam Prado MD 10/17/2017 Orders Only Transplant Dunia, Dori P, Status post liver transplantation (HCC) (Primary Dx); Hepatology RN Immunosuppression (HCC); Chronic renal impairment, unspecified CKD stage; Nonspecific findings on examination of blood; Encounter for therapeutic drug monitoring; Encounter for long-term (current) use of high-risk medication; Disorder of magnesium metabolism; Cryptogenic cirrhosis (HCC); Complication of transplanted liver, unspecified complication (HCC) 10/16/2017 Telephone Transplant Hilda Sullivanine Lab Results Hepatology M 10/06/2017 Orders Only Transplant Johan Hepatmiguel Maier MD 06/28/2017 Telephone Transplant Laurie Shira Lab Results Hepatology M 06/16/2017 Orders Only Transplant Airam Prado MD 05/02/2017 Orders Only Transplant Duque, Dori P, Hepatology RN 04/27/2017 Orders Only Transplant Duque, Dori P, Hepatology RN 04/25/2017 Refill Transplant Duque, Dori P, Hepatology RN 04/23/2017 Refill Transplant Trenton Galvan Hepatology MD after 02/08/2017 Social History Tobacco Use Types Packs/Day Years Used Date Never Smoker Alcohol Use Drinks/Week oz/Week Comments No Sex Assigned at Date Recorded Not on file Job Start Date Occupation Industry Not on file Not on file Not on file Travel History Travel Start Travel End No recent travel history available. Last Filed Vital Signs Vital Sign Reading Time Taken Blood Pressure 163/87 12/07/2017 11:02 AM CDT Pulse 60 12/07/2017 11:02 AM CDT Temperature 36.8 C (98.2 F) 12/07/2017 11:02 AM CDT Respiratory Rate 20 12/07/2017 11:02 AM CDT Oxygen Saturation 97% 12/07/2017 11:02 AM CDT Inhaled Oxygen Concentration - - Weight 85.2 kg (187 lb 12.8 oz) 12/07/2017 11:02 AM CDT Height 177.8 cm (5' 10") 12/07/2017 11:02 AM CDT Body Mass Index 26.95 12/07/2017 11:02 AM CDT Plan of Treatment Health Maintenance Due Date Last Done Comments INFLUENZA VACCINE 01/08/2018 Procedures Procedure Name Priority Date/Time Associated Comments Diagnosis PHOSPHORUS Routine 11/27/2017 8:31 Results for this AM CDT procedure are in the results section. SIROLIMUS LEVEL Routine 11/27/2017 8:20 Results for this AM CDT procedure are in the results section. CBC W/PLT COUNT & Routine 11/27/2017 8:20 Results for this AUTO DIFFERENTIAL AM CDT procedure are in the results section. HEPATIC FUNCTION Routine 11/27/2017 8:20 Results for this PANEL AM CDT procedure are in the results section. BASIC METABOLIC PANEL Routine 11/27/2017 8:20 Results for this (7) AM CDT procedure are in the results section. MAGNESIUM Routine 11/27/2017 8:20 Results for this AM CDT procedure are in the results section. SIROLIMUS LEVEL Routine 10/06/2017 9:44 Results for this AM CDT procedure are in the results section. CBC W/PLT COUNT & Routine 10/06/2017 9:44 Results for this AUTO DIFFERENTIAL AM CDT procedure are in the results section. HEPATIC FUNCTION Routine 10/06/2017 9:44 Results for this PANEL AM CDT procedure are in the results section. BASIC METABOLIC PANEL Routine 10/06/2017 9:44 Results for this (7) AM CDT procedure are in the results section. MAGNESIUM Routine 10/06/2017 9:44 Results for this AM CDT procedure are in the results section. SIROLIMUS LEVEL Routine 06/16/2017 9:26 Results for this AM SECONDARY EDUCATION PROFESSOR procedure are in the results section. CBC W/PLT COUNT & Routine 06/16/2017 9:26 Results for this AUTO DIFFERENTIAL AM SECONDARY EDUCATION PROFESSOR procedure are in the results section. HEPATIC FUNCTION Routine 06/16/2017 9:26 Results for this PANEL AM SECONDARY EDUCATION PROFESSOR procedure are in the results section. BASIC METABOLIC PANEL Routine 06/16/2017 9:26 Results for this (7) AM SECONDARY EDUCATION PROFESSOR procedure are in the results section. MAGNESIUM Routine 06/16/2017 9:26 Results for this AM SECONDARY EDUCATION PROFESSOR procedure are in the results section. after 02/08/2017 Results Phosphorus (11/27/2017 8:31 AM CDT) Phosphorus, Serum 3.2 2.1 - 4.3 mg/dL [facility] Resulting Agency Comment Performing Organization Information: Site ID: [id number] Name: [facility] Address: [address] [place] [phone] Director: Dia Wray Performing Organization Address [facility] Phone Number [employer] [address] [place] [address] [facility] Sirolimus level (11/27/2017 8:20 AM CDT)Only the most recent of3 resultswithin the time period is included. Rapamycin Trough 4.3 3.0 - 18.0 mcg/L [facility] Comment: This test was developed and its analytical performance characteristics have been determined by [facility]. It has not been cleared or approved by the US Food and Drug Administration. This assay has been validated pursuant to the CLIA regulations and is used for clinical purposes. Narrative Performed At FASTING:YES [facility] FASTING: YES Resulting Agency Comment Performing Organization Information: Site ID: [id number] Name: [facility] Address: [address] [place] [address] Director: Gulshan Loco M.D., Ph.D Performing Organization Address [facility] Phone Number [employer] [address] [place] [address] [facility] CBC with platelet count + automated diff (11/27/2017 8:20 AM CDT)Only the most recent of3 resultswithin the time period is included. WBC 5.5 3.8 - 10.8 Thousand/uL [facility] RBC 4.87 4.20 - 5.80 Million/uL [facility] Hemoglobin 14.2 13.2 - 17.1 g/dL [facility] Hematocrit 43.2 38.5 - 50.0 % [facility] MCV 88.7 80.0 - 100.0 fL [facility] MCH 29.2 27.0 - 33.0 pg [facility] MCHC 32.9 32.0 - 36.0 g/dL [facility] RDW 14.3 11.0 - 15.0 % [facility] Platelets 191 140 - 400 Thousand/uL [facility] MPV 9.6 7.5 - 12.5 fL [facility] # Neutros 3,487 1,500 - 7,800 cells/uL [facility] # Lymphs 1,463 850 - 3,900 cells/uL [facility] # Monos 391 200 - 950 cells/uL [facility] # Eos 132 15 - 500 cells/uL [facility] # Baso 28 0 - 200 cells/uL [facility] % Neutros 63.4 % [facility] % Lymphs 26.6 % [facility] % Monos 7.1 % [facility] % Eos 2.4 % [facility] % Baso 0.5 % [facility] Narrative Performed At FASTING:YES [facility] FASTING: YES Resulting Agency Comment Performing Organization Information: Site ID: [id number] Name: [facility] Address: [address] [place] [phone] Director: Dia Wray Performing Organization Address City/[facility] Phone Number [facility] [phone] [place] [address] [facility] Magnesium (11/27/2017 8:20 AM CDT)Only the most recent of3 resultswithin the time period is included. Magnesium, Serum 1.9 1.5 - 2.5 mg/dL [facility] Narrative Performed At FASTING:YES [facility] FASTING: YES Resulting Agency Comment Performing Organization Information: Site ID: [id number] Name: [facility] Address: [address] [place] [phone] Director: Dia Wray Performing Organization Address City/[facility] Phone Number [facility] [address] [place] [address] [facility] Hepatic function panel (11/27/2017 8:20 AM CDT)Only the most recent of3 resultswithin the time period is included. Protein, Total, Serum 6.4 6.1 - 8.1 g/dL [facility] Albumin 3.7 3.6 - 5.1 g/dL [facility] GLOBULIN (QUEST) 2.7 1.9 - 3.7 g/dL (calc) [facility] Albumin Globulin Ratio 1.4 1.0 - 2.5 (calc) [facility] Bilirubin, Total 0.6 0.2 - 1.2 mg/dL [facility] Bilirubin, Direct 0.1 < OR=0.2 mg/dL [facility] Bilirubin, Indirect 0.5 0.2 - 1.2 mg/dL (calc) [facility] Alkaline Phosphatase, S 83 40 - 115 U/L [facility] AST (SGOT) 15 10 - 35 U/L [facility] ALT (SGPT) 12 9 - 46 U/L [facility] Narrative Performed At FASTING:YES [facility] FASTING: YES Resulting Agency Comment Performing Organization Information: Site ID: [id number] Name: [facility] Address: [address] [place] [phone] Director: Dia Wray Performing Organization Address City/State/[facility] Cent[facility]ode Phone Number [facility] [address] [place] [address] [facility] Basic Metabolic Panel (11/27/2017 8:20 AM CDT)Only the most recent of3 resultswithin the time period is included. Glucose 96 65 - 99 mg/dL [facility] Comment: Fasting reference interval BUN 27 (H) 7 - 25 mg/dL [facility] Creatinine 1.93 (H) 0.70 - 1.18 mg/dL [facility] Comment: For patients >49 years of age, the reference limit for Creatinine is approximately 13% higher for people identified as -Salvadorean. eGFR If NonAfricn Am 33 (L) > OR=60 mL/min/1.73m2 [facility] eGFR If Africn Am 39 (L) > OR=60 mL/min/1.73m2 [facility] BUN/Creatinine Ratio 14 6 - 22 (calc) [facility] Sodium 143 135 - 146 mmol/L [facility] Potassium, Serum 4.1 3.5 - 5.3 mmol/L [facility] Chloride 109 98 - 110 mmol/L [facility] Carbon Dioxide, Total 25 20 - 32 mmol/L [facility] Calcium, Serum 8.7 8.6 - 10.3 mg/dL [facility] Narrative Performed At FASTING:YES [facility] FASTING: YES Resulting Agency Comment Performing Organization Information: Site ID: [id number] Name: [facility] Address: [address] [place] [phone] Director: Dia Wray Performing Organization Address City/State/Zipcode Phone Number [facility] [address] [place] [address] [facility] after 02/08/2017 Insurance Payer Benefit Plan / Group Subscriber ID Type Phone Address [employer] - MEDICARE MGD [employer] MEDICARE ADV xxxxxxxxx Maps Contracted CARE Advance Directives For more information, please contact:[address] [phone] Code Status Date Activated Date Inactivated Comments Full Code 05/09/2015 12:40 AM 05/11/2015 11:00 AM This code status was determined by: Patient Full Code 02/17/2014 4:54 PM 02/18/2014 2:07 PM This code status was determined by: Patient
[2018-02-09 17:25] LABS: Absolute Monocytes 0.2 K/uL (0.1-1.3); Absolute Neutrophil 5.3 K/uL (1.8-8.0); Eosinophils % 0.5 % (0-4.4); Hematocrit 49.1 % (39.6-49.0); Lymphocytes % 14.8 % (15.3-44.8); MCH 29.8 pg (27.0-35.0); MCV 90.3 fL (80-100); MPV 7.2 fL (7.6-11.3); Monocytes % 3.3 % (3.3-12.3); RBC Red Blood Cell Count 5.44 M/uL (4.33-5.43)
[2018-02-09] MEDS ORDERED: INFLUENZA VACCINE (for 3y+) 0.5 ML DOSE IMVAC ONE (18:30)
[2018-02-09] MEDS ORDERED: PNEUMOCOCCAL VACCINE 0.5 ML IMVAC ONE (18:30)
[2018-02-09] MEDS: NACHLORIDE 0.45% 1,000 ML IV SCH ×2 (18:34→21:13)
[2018-02-09] MEDS: ONDANSETRON 4 MG/2 ML VIAL IV PRN (18:37)
[2018-02-09 19:36] LABS: ALT/SGPT 21 U/L (12-78); AST/SGOT 21 U/L (15-37)
--- NOTE | 2018-02-09 20:29 | RAD REPORT ---
EXAM DESCRIPTION: RAD - Abdomen 1 View (KUB) - 02/09/2018 8:16 pm CLINICAL HISTORY: Abdomen pain. FINDINGS: The bowel gas pattern is unremarkable. Calcifications within the pancreatic head are present. 10 millimeter calcification lies adjacent to left transverse process of L2 and is unchanged from the November 2017 exam. It likely lies within the left renal pelvis. Additional small left renal calculus i s noted. Calcifications in pelvis are unchanged presumably representing phleboliths
[2018-02-09] MEDS: ACETAMINOPHEN 325 MG TABLET PO PRN (21:13)
[2018-02-10 02:21] LABS: Urine Appearance CLEAR; Urine Bilirubin NEGATIVE (NEG); Urine Blood NEGATIVE (NEG); Urine Color YELLOW; Urine Glucose NEGATIVE (NEG); Urine Protein 2+ (NEG); Urine Urobilinogen 0.2 mg/dL (0.2-1.0)
[2018-02-10 02:23] LABS: Urine Microscopic Reflex ORDER UMIC
[2018-02-10 03:06] LABS: Urine Bacteria <20 /HPF (NONE SEEN); Urine Coarse Granular Casts 0-5 /LPF (NONE SEEN); Urine Culture Reflex Order NOT NEEDED; Urine RBC NONE SEEN /HPF (NONE SEEN)
[2018-02-10] MEDS: NACHLORIDE 0.45% 1,000 ML IV SCH ×4 (05:28→23:32)
[2018-02-10] MEDS: ONDANSETRON 4 MG/2 ML VIAL IV PRN ×3 (06:28→23:33)
[2018-02-10 11:08] LABS: Potassium 3.6 mmol/L (3.5-5.1)
--- NOTE | 2018-02-10 13:22 | HP ---
Date of Admission: 02/09/2018 Chief Complaint: Dehydration. History Of Present Illness: A 77-year-old male was brought to the office with 3 days of continuous v omiting and inability to keep anything down. He denied any actual abdominal pain. No history of ramírez rrhea. No history of fever, chills, rigors. Past Medical History: Extensive, includes history of liver transplant, history of colectomy with ile al pouch, hernia repair, appendectomy. Family History: Positive for liver cancer. Other Medical History: Includes history of pulmonary embolism, history of chronic hepatitis, history of kidney stones, colon cancer, chronic renal insufficiency. Allergies: IODINE. Review of Systems: No fever, chills, rigors. Physical Examination: General: Revealed 77-year-old male, alert for his age. HEENT: No icterus. Neck: Supple. JVD negative. Chest: Occasional wheezes. Heart: Regular. Abdomen: Soft, nontender. Bowel sounds present. Extremities: No edema. Laboratory Data: White count normal. Chem profile; BUN 40, creatinine 2.2. Lipase normal. Assessment: 1.Dehydration. 2.Acute gastritis. 3.Status post liver transplant. 4.History of colectomy and ileostomy. Plan: IV fluids. Recheck Chem profile. GUILLERMO/YASMINE Voice ID: [id number]
[2018-02-10] MEDS: ACETAMINOPHEN 325 MG TABLET PO PRN (15:47)
[2018-02-11] MEDS: ONDANSETRON 4 MG/2 ML VIAL IV PRN (06:01)
== END 2018-02-11 09:18 | disposition home or self-care (01) ==
LOC: 4TH 16:32
PROVIDERS: ADMIT Internal Medicine; ATTEND Internal Medicine
DX: E86.0 Dehydration (principal); K29.70 Gastritis, unspecified, without bleeding; Z90.49 Acquired absence of other specified parts of digestive tract; Z93.2 Ileostomy status; Z94.4 Liver transplant status; Z87.442 Personal history of urinary calculi; Z85.038 Personal history of other malignant neoplasm of large intestine
CPT/HCPCS: 36415; 74018; 80048 ×2; 83690; 84450; 84460; 85025; G0378; G0379; J2405 ×5; 81003; 81015

== ENCOUNTER 2018-06-25 13:36 | Emergency (ER) | payer OTHER ==
--- OUTSIDE RECORDS SUMMARY | 2018-06-25 13:38 | XMS REPORT | Clinical Summary ---
:1940 Author Organization [facility] Address [address] [place] [address] Care Team Providers Name Role Phone Judah Rizo Primary Care Provider Allergies Active Allergy Reactions Severity Noted Date Comments Iodine And Iodide Containing Products Hives 09/25/2013 Medications Medication Sig Dispensed Refills Start Date End Date Status multivitamin capsule Take 1 capsule 0 Active by mouth daily. metoprolol Take 50 mg by 0 Active (TOPROL-XL) 50 MG 24 mouth 2 (two) hr tablet times daily. folic acid (FOLVITE) Take 400 mcg 0 Active 800 MCG tablet by mouth daily. lisinopril Take 2.5 mg by 0 Active (PRINIVIL,ZESTRIL) mouth daily. 2.5 MG tablet cyanocobalamin, Place 1 tablet 0 Active vitamin B-12, under the (VITAMIN B-12) 1,000 tongue. mcg Subl omega-3 fatty Take 1 g by 0 Active acids-fish oil mouth daily. 340-1,000 mg Cap per capsule allopurinol Take 100 mg by 0 Active (ZYLOPRIM) 100 MG mouth daily . tablet cycloSPORINE Place 1 drop 0 Active (RESTASIS) 0.05 % into both eyes ophthalmic emulsion every 12 (twelve) hours. travoprost (TRAVATAN Place 1 drop 0 Active Z) 0.004 % Drop into both eyes ophthalmic drops nightly. rivaroxaban Take 15 mg by 0 Active (XARELTO) 15 mg Tab mouth daily as tablet needed Take only when traveling on airplane. . VIT A/VIT C/VIT Take 1 capsule 0 Active E/ZINC/COPPER (ICAPS by mouth daily AREDS ORAL) A-Red capsule daily. . mycophenolate TAKE ONE 180 capsule 6 03/12/2018 Active (CELLCEPT) 250 mg CAPSULE BY capsuleIndications: MOUTH TWICE Status post liver DAILY transplantation (HCC) sirolimus (RAPAMUNE) TAKE 1 TABLET 90 tablet 3 05/14/2018 Active 1 MG tablet BY MOUTH DAILY mycophenolate Take 1 capsule 180 capsule 3 01/05/2016 12/08/19 Discontinued (CELLCEPT) 250 mg (250 mg total) 18 capsuleIndications: by mouth 2 Status post liver (two) times transplantation daily. (HCC) mycophenolate Take 1 capsule 180 capsule 3 02/02/2017 03/12/20 Discontinued (CELLCEPT) 250 mg (250 mg total) 18 capsuleIndications: by mouth 2 Status post liver (two) times transplantation daily. (HCC) sirolimus (RAPAMUNE) Take 1 tablet 90 tablet 3 04/27/2017 05/11/19 Discontinued 1 MG tablet (1 mg total) 19 by mouth daily. 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 Ulcerative colitis 10/13/2014 Last Assessment & Plan: He had ulcerative colitis s/p colectomy with J-pouch. We have referred him to a [facility] IBD specialist. Chronic renal insufficiency 10/13/2014 [...] Patient has regular follow up with a accounting lecturer to evaluate and biopsy abnormal skin lesions. Screening for rectal cancer 09/26/2013 Last Assessment & Plan: Patient has regular surveillance. He sees Dr. Wilcox. He is due for sigmoidoscopy this upcoming year. Encounters Date Type Specialty Care Team Description 05/11/2018 Refill Transplant Trenton Galvan Hepatology 04/05/2018 Telephone Transplant Mari [facility] Labs Only (SPK W PTN RE: Hepatology LAB/RX RESULTS; NO MED CHANGES; REPEAT BLD WK X4 MTHS; 08/02/2018; [facility]; GGT;) 03/30/2018 Orders Only Transplant Johan Hepatmiguel Maier MD 03/12/2018 Refill Transplant Trenton Galvan, Status post liver Hepatology MD transplantation (HCC) 12/07/2017 Follow-Up Transplant Teagan Brian Hepatmiguel Doyle MD 12/07/2017 Abstract Transplant Teagan Brian Hepatmiguel Doyle MD 12/06/2017 Telephone Transplant Laurie [facility] Lab Results Hepatology M 11/27/2017 Orders Only Transplant Johan Hepatology Milena Maier MD 11/27/2017 Orders Only Transplant Johan Hepatology Milena Maier MD 10/17/2017 Orders Only Transplant Dori Duque, Status post liver transplantation (HCC) (Primary Dx); Hepatology RN Immunosuppression (HCC); Chronic renal impairment, unspecified CKD stage; Nonspecific findings on examination of blood; Encounter for therapeutic drug monitoring; Encounter for long-term (current) use of high-risk medication; Disorder of magnesium metabolism; Cryptogenic cirrhosis (HCC); Complication of transplanted liver, unspecified complication (HCC) 10/16/2017 Telephone Transplant Laurie, Shira Lab Results Hepatology M 10/06/2017 Orders Only Transplant Johan Hepatmiguel Maier MD 06/28/2017 Telephone Transplant Laurie, Shira Lab Results Hepatology after 06/24/2017 Social History Tobacco Use Types Packs/Day Years [...] Procedure Name Priority Date/Time Associated Comments Diagnosis SIROLIMUS LEVEL Routine 03/30/2018 9:30 Results for this AM SAS ARCHITECT procedure are in the results section. CBC W/PLT COUNT & Routine 03/30/2018 9:30 Results for this AUTO DIFFERENTIAL AM SAS ARCHITECT procedure are in the results section. HEPATIC FUNCTION Routine 03/30/2018 9:30 Results for this PANEL AM SAS ARCHITECT procedure are in the results section. BASIC METABOLIC PANEL Routine 03/30/2018 9:30 Results for this (7) AM SAS ARCHITECT procedure are in the results section. MAGNESIUM Routine 03/30/2018 9:30 Results for this AM SAS ARCHITECT procedure are in the results section. PHOSPHORUS Routine 11/27/2017 8:31 Results for this [...] CDT procedure are in the results section. after 06/24/2017 Results Sirolimus level (03/30/2018 9:30 AM SAS ARCHITECT)Only the most recent of3 resultswithin the time period is included. Rapamycin Trough 5.5 3.0 - 18.0 mcg/L [facility] Comment: This test was developed and its analytical performance characteristics have been determined by [facility]. It has not been cleared or approved by the US Food and Drug Administration. This assay has been validated pursuant to the CLIA regulations and is used for clinical purposes. Resulting Agency Comment Performing Organization Information: Site ID: [id number] Name: [facility] Address: [address] [place] [address] Director: Gulshan Loco M.D., Ph.D Performing Organization Address City/State/Zipcode Phone Number [facility] [address] [place] [address] [facility] CBC with platelet count + automated diff (03/30/2018 9:30 AM SAS ARCHITECT)Only the most recent of3 resultswithin the time period is included. WBC 5.6 3.8 - 10.8 Thousand/uL [facility] RBC 5.02 4.20 - 5.80 Million/uL [facility] Hemoglobin 14.6 13.2 - 17.1 g/dL [facility] Hematocrit 43.6 38.5 - 50.0 % [facility] MCV 86.9 80.0 - 100.0 fL [facility] MCH 29.1 27.0 - 33.0 pg [facility] MCHC 33.5 32.0 - 36.0 g/dL [facility] RDW 13.8 11.0 - 15.0 % [facility] Platelets 195 140 - 400 Thousand/uL [facility] MPV 10.0 7.5 - 12.5 fL [facility] # Neutros 3,595 1,500 - 7,800 cells/uL [facility] # Lymphs 1,366 850 - 3,900 cells/uL [facility] # Monos 420 200 - 950 cells/uL [facility] # Eos 179 15 - 500 cells/uL [facility] # Baso 39 0 - 200 cells/uL [facility] % Neutros 64.2 % [facility] % Lymphs 24.4 % [facility] % Monos 7.5 % [facility] % Eos 3.2 % [facility] % Baso 0.7 % [facility] Resulting Agency Comment Performing Organization Information: Site ID: [facility] Name: [facility] Address: [address] [place] [phone] Director: Dia Wray Performing Organization Address [facility] Phone Number [facility] [address] [place] [address] [facility] Magnesium (03/30/2018 9:30 AM [facility] ARCHITECT)Only the most recent of3 resultswithin the time period is included. Magnesium, Serum 2.1 1.5 - 2.5 mg/dL [facility] Resulting Agency Comment Performing Organization Information: Site ID: [facility] Name: [facility] Address: [address] [place] [phone] Director: Dia Wray Performing Organization Address [facility] Phone Number [facility] [address] [place] [address] [facility] Hepatic function panel (03/30/2018 9:30 AM SAS ARCHITECT)Only the most recent of3 resultswithin the time period is included. Protein, Total, Serum 6.8 6.1 - 8.1 g/dL [facility] Albumin 3.9 3.6 - 5.1 g/dL [facility] GLOBULIN (QUEST) 2.9 1.9 - 3.7 g/dL (calc) [facility] Albumin Globulin Ratio 1.3 1.0 - 2.5 (calc) [facility] Bilirubin, Total 0.9 0.2 - 1.2 mg/dL [facility] Bilirubin, Direct 0.2 < OR=0.2 mg/dL [facility] Bilirubin, Indirect 0.7 0.2 - 1.2 mg/dL (calc) [facility] Alkaline Phosphatase, S 104 40 - 115 U/L [facility] AST (SGOT) 16 10 - 35 U/L [facility] ALT (SGPT) 14 9 - 46 U/L [facility] Resulting Agency Comment Performing Organization Information: Site ID: Buck Name: [facility] Address: [address] [place] [phone] Director: Dia Wray Performing Organization Address [facility] Phone Number [facility] [address] [place] [address] [facility] Basic Metabolic Panel (03/30/2018 9:30 AM SAS ARCHITECT)Only the most recent of3 resultswithin the time period is included. Glucose 91 65 - 99 mg/dL [facility] Comment: Fasting reference interval BUN 29 (H) 7 - 25 mg/dL [facility] Creatinine 2.21 (H) 0.70 - 1.18 mg/dL [facility] Comment: For patients >49 years of age, the reference limit for Creatinine is approximately 13% higher for people identified as -Togolese. eGFR If NonAfricn Am 28 (L) > OR=60 mL/min/1.73m2 [facility] eGFR If Africn Am 33 (L) > OR=60 mL/min/1.73m2 [facility] BUN/Creatinine Ratio 13 6 - 22 (calc) [facility] Sodium 139 135 - 146 mmol/L [facility] Potassium, Serum 4.4 3.5 - 5.3 mmol/L [facility] Chloride 104 98 - 110 mmol/L [facility] Carbon Dioxide, Total 27 20 - 32 mmol/L [facility] Calcium, Serum 9.2 8.6 - 10.3 mg/dL [facility] Resulting Agency Comment Performing Organization Information: Site ID: A Name: [facility] Address: [address] [place] [id number] Director: Dia Wray Performing Organization Address [facility] Phone Number [facility] [address] [place] [address] [facility] Phosphorus (11/27/2017 8:31 AM CDT) Phosphorus, Serum 3.2 2.1 - 4.3 mg/dL [facility] Resulting Agency Comment Performing Organization Information: Site ID: [facility] Name: [facility] Address: [address] [place] [phone] Director: Dia Wray Performing Organization Address [facility] Phone Number [facility] [address] [place] [address] [facility] after 06/24/2017 Insurance Payer Benefit Plan / Group Subscriber ID Type Phone Address HU[employer] - MEDICARE MGD HU[employer]NA MEDICARE ADV xxxxxxxxx Maps Contracted CARE Advance Directives For more information, please contact:[place] [id number] [place], [place] [phone] Code Status Date Activated Date Inactivated Comments Full Code 05/09/2015 12:40 AM 05/11/2015 11:00 AM This code status was determined by: Patient Full Code 02/17/2014 4:54 PM 02/18/2014 2:07 PM This code status was determined by: Patient
--- NOTE | 2018-06-25 15:28 | RAD REPORT ---
EXAM DESCRIPTION: CT - [id number] - 06/25/2018 3:13 pm CLINICAL HISTORY: Trauma, head and neck injury. PAIN COMPARISON: No comparisons TECHNIQUE: Axial 5 mm thick images of the head were obtained. Axial 2 mm thick images of the cervical spine were obtained with sagittal and coronal reconstruction images generated and reviewed. All CT scans are performed using dose optimization technique as appropriate and may include automated exposure control or mA/KV adjustment according to patient size. FINDINGS: CT HEAD WITHOUT CONTRAST: 11 mm acute on chronic right-sided subdural hematoma is present.5 mm right to left midline shift is s een. The paranasal sinuses and mastoids are clear.The calvarium is intact. CT CERVICAL SPINE WITHOUT CONTRAST: No fracture or subluxation.Lower cervical degenerative changes are present.No prevertebral soft tissu es swelling is identified. IMPRESSION: 11 mm acute on chronic right-sided subdural hematoma with 5 mm right to left midline carmelita ft. Findings were discussed with ER physician Dr. Gimenez 3:20 p.m. 06/25/2018 by telephone.
[2018-06-25] MEDS ORDERED: PROMETHAZINE 25 MG/ML VIAL ONE (15:32)
[2018-06-25] MEDS ORDERED: MECLIZINE HCL 12.5 MG TAB ONE (15:33)
[2018-06-25] MEDS ORDERED: ONDANSETRON 4 MG/2 ML VIAL ONE ×2 (15:33→17:40)
[2018-06-25] MEDS ORDERED: KETOROLAC 30 MG/ML INJ ONE (15:33)
[2018-06-25] MEDS ORDERED: NA CHLORIDE 0.9% 1,000 ML ONE (15:33)
--- NOTE | 2018-06-25 15:53 | EDPHYS ---
Physician Documentation [facility] Name: Yoni Shi Age: 77 yrs Sex: Male : 1940 Arrival Date: 06/25/2018 Time: 13:38 Bed 16 Private MD: Judah Rojas R ED Physician Sb Chavez HPI: 06/25 15:16 This 77 yrs old Male presents to ER via Ambulatory with complaints of ma2 Vomiting. 15:16 Onset: The symptoms/episode began/occurred gradually, 3 day(s) ago. The symptoms are ma2 alleviated by remaining still, supine position, prescription meds. Associated signs and symptoms: Pertinent positives: nausea, vomiting, right neck pain , Pertinent negatives: diarrhea, fever, flatulence. Severity of symptoms: At their worst the symptoms were moderate in the emergency department the symptoms are unchanged. The patient has not experienced similar symptoms in the past. Historical: - Allergies: 13:55 Iodinated Contrast Media - IV Dye; hb - Immunization history:: Adult Immunizations up to date. - Social history:: Smoking status: Patient/guardian denies using tobacco, Patient uses Patient/guardian denies using alcohol, street drugs, The patient lives with family. - Ebola Screening: : No symptoms or risks identified at this time. - Family history:: not pertinent. ROS: 15:16 Constitutional: Negative for fever, chills, and weight loss, Eyes: Negative for injury, ma2 pain, redness, and discharge. 15:16 Neck: Positive for pain at rest, Negative for pain with movement, swelling. 15:16 Abdomen/GI: Positive for nausea, vomiting, Negative for constipation, abdominal distension, acute changes. 15:16 All other systems are negative. Exam: 15:16 Constitutional: This is a well developed, well nourished patient who is awake, alert, ma2 and in no acute distress. Head/Face: Normocephalic, atraumatic. Eyes: Pupils equal round and reactive to light, extra-ocular motions intact. Lids and lashes normal. Conjunctiva and sclera are non-icteric and not injected. Cornea within normal limits. Periorbital areas with no swelling, redness, or edema. ENT: Nares patent. No nasal discharge, no septal abnormalities noted. Tympanic membranes are normal and external auditory canals are clear. Oropharynx with no redness, swelling, or masses, exudates, or evidence of obstruction, uvula midline. Mucous membranes moist. Neck: Trachea midline, no thyromegaly or masses palpated, and no cervical lymphadenopathy. Supple, full range of motion without nuchal rigidity, or vertebral point tenderness. No Meningismus. Chest/axilla: Normal chest wall appearance and motion. Nontender with no deformity. No lesions are appreciated. Cardiovascular: Regular rate and rhythm with a normal S1 and S2. No gallops, murmurs, or rubs. Normal PMI, no JVD. No pulse deficits. Respiratory: Lungs have equal breath sounds bilaterally, clear to auscultation and percussion. No rales, rhonchi or wheezes noted. No increased work of breathing, no retractions or nasal flaring. Abdomen/GI: Soft, non-tender, with normal bowel sounds. No distension or tympany. No guarding or rebound. No evidence of tenderness throughout. Skin: Warm, dry with normal turgor. Normal color with no rashes, no lesions, and no evidence of cellulitis. MS/ Extremity: Pulses equal, no cyanosis. Neurovascular intact. Full, normal range of motion. Neuro: Awake and alert, GCS 15, oriented to person, place, time, and situation. Cranial nerves II-XII grossly intact. Motor strength 5/5 in all extremities. Sensory grossly intact. Cerebellar exam normal. Normal gait. Vital Signs: 13:55 BP 201 / 109; Pulse 98; Resp 16; Temp 98.7; Pulse Ox 100% on R/A; Pain 3/10; hb 16:25 BP 162 / 97; Pulse 88; Resp 17; Temp 98.2; Pulse Ox 100% on R/A; Pain 3/10; sg 17:25 BP 166 / 92; Pulse 87; Resp 16; Pulse Ox 100% on R/A; Pain 0/10; sg Stratford Coma Score: 16:25 Eye Response: spontaneous(4). Verbal Response: oriented(5). Motor Response: obeys sg commands(6). Total: 15. 17:25 Eye Response: spontaneous(4). Verbal Response: oriented(5). Motor Response: obeys sg commands(6). Total: 15. MDM: 14:35 Patient medically screened. ma2 15:16 Differential diagnosis: gastritis, pancreatitis, appendicitis, viral gastroenteritis, wi2 gastroenteritis. 15:51 Data reviewed: vital signs, nurses notes. Counseling: I had a detailed discussion with [facility] the patient and/or guardian regarding: the historical points, exam findings, and any diagnostic results supporting the discharge/admit diagnosis, the presence of at least one elevated blood pressure reading (>120/80) during this emergency department visit. ED course: [facility]. 06/25 15:01 Order name: Basic Metabolic Panel [facility] 06/25 15:01 Order name: CBC with Diff [facility] 06/25 15:01 Order name: Creatinine for Radiology [facility] 06/25 15:01 Order name: Hepatic Function [facility] 06/25 15:01 Order name: Lipase [facility] 06/25 15:01 Order name: Troponin I [facility] 06/25 15:01 Order name: CT Head C Spine; Complete Time: 15:35 [facility] 06/25 15:01 Order name: IV Saline Lock; Complete Time: 15:47 [facility] 06/25 15:01 Order name: Labs collected and sent; Complete Time: 15:47 [facility] Administered Medications: 15:40 Drug: Zofran 4 mg Route: IVP; Site: left antecubital; sg 15:42 Not Given (Patient Refused): TORadol 30 mg IVP once iw 15:42 Not Given (Patient Refused): Meclizine 50 mg PO once iw 15:47 Drug: NS 0.9% 1000 ml Route: IV; Rate: 125 ml/hr; Site: left antecubital; sg 15:47 Drug: Tylenol 500 mg Route: PO; sg 16:27 Follow up: Response: No adverse reaction; Pain is decreased sg 17:36 Not Given (Other Intervention Used): Phenergan 25 mg IVP once sg Disposition: 06/25/18 15:[address] [facility]. Diagnosis is Traumatic subdural hemorrhage. - Reason for transfer: Higher level of care. - Accepting physician is Alma Rosa. - Condition is Stable. - Problem is new. - Symptoms are unchanged. Signatures: Dispatcher [employer] EDMS Memo Davenport RN RN Ramya Foster RN RN Masha Hahn RN RN Sb Chavez MD MD [facility] Corrections: (The following items were deleted from the chart) 17:42 15:52 06/25/2018 15:[address] [facility]. sg Diagnosis is Traumatic subdural hemorrhage. Reason for transfer: Higher level of care. Accepting physician is Alma Rosa. Condition is Stable. Problem is new. Symptoms are unchanged. ma2
--- NOTE | 2018-06-25 15:53 | ER ---
Nurse's Notes [facility] Name: Yoni Shi Age: 77 yrs Sex: Male : 1940 Arrival Date: 06/25/2018 Time: 13:38 Bed 16 Private MD: Judah Rojas R Diagnosis: Traumatic subdural hemorrhage Presentation: 06/25 13:54 Presenting complaint: N/V and right sided headache x 2 days, right ear pain x 3-4 days. hb Not tolerating fluids. Denies pain/fever. Actively vomiting in triage. Transition of care: patient was not received from another setting of care. Onset of symptoms was June 24, 2018. Risk Assessment: Do you want to hurt yourself or someone else? Patient reports no desire to harm self or others. Care prior to arrival: None. 13:54 Method Of Arrival: Ambulatory hb 13:54 Acuity: LIV 3 hb Historical: - Allergies: 13:55 Iodinated Contrast Media - IV Dye; hb - Immunization history:: Adult Immunizations up to date. - Social history:: Smoking status: Patient/guardian denies using tobacco, Patient uses Patient/guardian denies using alcohol, street drugs, The patient lives with family. - Ebola Screening: : No symptoms or risks identified at this time. - Family history:: not pertinent. Screenin:10 Abuse screen: Denies threats or abuse. Denies injuries from another. Nutritional sg screening: No deficits noted. Tuberculosis screening: No symptoms or risk factors identified. Never had TB. Fall Risk None identified. Assessment: 14:10 General: Appears in no apparent distress. well groomed, well developed, well nourished, sg Behavior is calm, cooperative, appropriate for age. Pain: Complains of pain in right congregational Quality of pain is described as aching. Neuro: Level of Consciousness is awake, alert, obeys commands, Oriented to person, place, time, situation, Blister Pack Operator are equal bilaterally Moves all extremities. Full function Gait is steady, Speech is normal, Facial symmetry appears normal, Pupils are constricted. Cardiovascular: Capillary refill is brisk in bilateral fingers Patient's skin is warm and dry. Chest pain is denied. Respiratory: Airway is patent Respiratory effort is even, unlabored, Respiratory pattern is regular, symmetrical. GI: Abdomen is round non-distended, Bowel sounds present X 4 quads. Reports tolerance of fluids, tolerance of food. : No signs and/or symptoms were reported regarding the genitourinary system. EENT: No signs and/or symptoms were reported regarding the EENT system. Derm: Skin is pink, warm \T\ dry. Musculoskeletal: No signs and/or symptoms reported regarding the musculoskeletal system. Vital Signs: 13:55 BP 201 / 109; Pulse 98; Resp 16; Temp 98.7; Pulse Ox 100% on R/A; Pain 3/10; hb 16:25 BP 162 / 97; Pulse 88; Resp 17; Temp 98.2; Pulse Ox 100% on R/A; Pain 3/10; sg 17:25 BP 166 / 92; Pulse 87; Resp 16; Pulse Ox 100% on R/A; Pain 0/10; sg [place] Coma Score: 16:25 Eye Response: spontaneous(4). Verbal Response: oriented(5). Motor Response: obeys sg commands(6). Total: 15. 17:25 Eye Response: spontaneous(4). Verbal Response: oriented(5). Motor Response: obeys sg commands(6). Total: 15. ED Course: 13:38 Patient arrived in ED. as 13:38 Judah Rojas MD is Private Physician. as 13:55 Triage completed. hb 13:55 Arm band placed on. hb 14:10 Patient has correct armband on for positive identification. Bed in low position. Call sg light in reach. Side rails up X2. electronic device monitor on. Pulse ox on. NIBP on. Warm blanket given. Head of bed elevated. 14:35 Sb Chavez MD is Attending Physician. ma2 14:55 Memo Davenport, MAYLIN is Primary Nurse. sg 15:[address] vm2 15:12 CT completed. Patient tolerated procedure well. Patient moved back from CT. nj 15:13 CT Head C Spine In Process Unspecified. EDMS 15:50 Initial lab(s) drawn, by me, sent to lab. sg 16:15 Inserted saline lock: 20 gauge in left antecubital area, using aseptic technique. Blood sg collected. 16:25 No provider procedures requiring assistance completed. Patient transferred, IV remains sg in place. intact, No redness/swelling at site. Administered Medications: 15:40 Drug: Zofran 4 mg Route: IVP; Site: left antecubital; sg 15:42 Not Given (Patient Refused): TORadol 30 mg IVP once iw 15:42 Not Given (Patient Refused): Meclizine 50 mg PO once iw 15:47 Drug: NS 0.9% 1000 ml Route: IV; Rate: 125 ml/hr; Site: left antecubital; sg 15:47 Drug: Tylenol 500 mg Route: PO; sg 16:27 Follow up: Response: No adverse reaction; Pain is decreased sg 17:36 Not Given (Other Intervention Used): Phenergan 25 mg IVP once sg Outcome: 15:52 ER care complete, transfer ordered by . ma2 16:22 Transferred to [facility], Note: report called to Maude ER production operations engineer sg 16:22 Condition: stable 17:42 Patient left the ED. sg Signatures: Dispatcher [employer] EDMS Memo Davenport RN RN Natalya Martel Heather, RN RN [facility] Sb Chavez MD MD flRamya Bhardwaj RN Corrections: (The following items were deleted from the chart) 13:57 13:54 Presenting complaint: N/V and right sided headache x 2 days. Not tolerating hb fluids. Denies pain/fever hb 13:57 13:54 Presenting complaint: N/V and right sided headache x 2 days. Not tolerating hb fluids. Denies pain/fever. Actively vomiting in triage hb 15:49 15:47 NS 0.9% 1000 ml IV at 1 bolus in left antecubital sg sg
[2018-06-25] MEDS ORDERED: ACETAMINOPHEN 500 MG TAB ONE (15:55)
[2018-06-25 16:00] LABS: Absolute Lymphocytes (CBC) 0.7 K/uL (0.7-4.9); Absolute Monocytes 0.2 K/uL (0.1-1.3); Absolute Neutrophil 6.2 K/uL (1.8-8.0); Basophils % 0.7 % (0-1.3); Eosinophils % 0.2 % (0-4.4); Hematocrit 43.1 % (39.6-49.0); Lymphocytes % 9.8 % (15.3-44.8); MPV 7.7 fL (7.6-11.3); Monocytes % 3.5 % (3.3-12.3); RBC Red Blood Cell Count 4.85 M/uL (4.33-5.43)
[2018-06-25 16:24] LABS: ALT/SGPT 20 U/L (12-78); AST/SGOT 16 U/L (15-37); Albumin 3.6 g/dL (3.4-5.0); Alkaline Phosphatase 100 U/L (45-117); BUN Blood Urea Nitrogen 27 mg/dL (7-18); Bicarbonate 25 mmol/L (21-32); Bilirubin Direct 0.2 mg/dL (0-0.2); Bilirubin Total 0.7 mg/dL (0.2-1.0); Glucose Level 106 mg/dL (74-106); Lipase 198 U/L (73-393); Potassium 4.1 mmol/L (3.5-5.1); Protein, Total 7.9 g/dL (6.4-8.2); Sodium Level 143 mmol/L (136-145); Troponin I < 0.02 ng/mL (0.0-0.045)
[2018-06-25 19:56] LABS: Blood Morphology Comment NOT SEEN (NOT SEEN); Platelet Estimate ADEQ; Urine White Blood Cell Casts OK
== END 2018-06-25 17:42 | disposition short-term general hospital (02) ==
LOC: ER 13:36
DX: S06.5X0A Traumatic subdural hemorrhage without loss of consciousness, initial encounter (principal); Z91.048 Other nonmedicinal substance allergy status
CPT/HCPCS: 85025; 80048; 36415; 80076; 84484; 83690; 70450; 72125; 96374; 99285; J7030; J2405 ×2; J2550

== ENCOUNTER 2018-10-07 18:14 | Emergency (ER) | payer OTHER ==
--- OUTSIDE RECORDS SUMMARY | 2018-10-07 18:18 | XMS REPORT | Clinical Summary ---
:1940 Author Organization [facility] Address [address] [place] [address] Care Team Providers Name Role Phone Judah [...] We have referred him to a [facility] IBD specialist. Chronic renal insufficiency 10/13/2014 [...] Patient has regular follow up with a director consumer affairs to evaluate and biopsy abnormal skin lesions. Screening for rectal cancer 09/26/2013 Last Assessment & Plan: Patient has regular surveillance. He sees Dr. Wilcox. He is due for sigmoidoscopy this upcoming year. Encounters Date Type Specialty Care Team Description 10/05/2018 Orders Only Transplant [place], [place] Miguel, Hepatology 05/11/2018 Refill Transplant Trenton Galvan Hepatology 04/05/2018 Telephone Transplant Mari Wellington Labs Only (SPK W PTN RE: Hepatology LAB/RX RESULTS; NO MED CHANGES; REPEAT BLD WK X4 MTHS; 08/02/2018; [facility]; GGT;) 03/30/2018 Orders Only Transplant Johan Hepatmiguel Maier MD 03/12/2018 Refill Transplant [place] Galvan, Status post liver Hepatology MD transplantation (HCC) 12/07/2017 Follow-Up Transplant Teagan Brian MD 12/07/2017 Abstract Transplant Teagan Brian MD 12/06/2017 Telephone Transplant Shira Sullivan Lab Results Hepatology M 11/27/2017 Orders Only Transplant Airam Prado MD 11/27/2017 Orders Only Transplant Johan Hepatmiguel Maier MD 10/17/2017 Orders Only Transplant Dori Duque, Status post liver transplantation (HCC) (Primary Dx); Hepatology RN Immunosuppression (HCC); Chronic renal impairment, unspecified CKD stage; Nonspecific findings on examination of blood; Encounter for therapeutic drug monitoring; Encounter for long-term (current) use of high-risk medication; Disorder of magnesium metabolism; Cryptogenic cirrhosis (HCC); Complication of transplanted liver, unspecified complication (HCC) 10/16/2017 Telephone Transplant Shira Sullivan Lab Results Hepatology M 10/06/2017 Orders Only Transplant Johan Hepatology Milena Maier MD after 10/06/2017 Social History Tobacco Use Types Packs/Day Years [...] 12/07/2017 11:02 AM CDT Plan of Treatment Date Type Specialty Care Team Description 01/24/2019 Follow-Up Transplant Hepatology Teagan Brian MD [address] [facility] [address] [place] [address] [phone] Procedures Procedure Name Priority Date/Time Associated Comments Diagnosis SIROLIMUS LEVEL Routine 10/05/2018 9:52 AM CDT CBC W/PLT COUNT & Routine 10/05/2018 9:52 Results for this AUTO DIFFERENTIAL AM CDT procedure are in the results section. HEPATIC FUNCTION Routine 10/05/2018 9:52 Results for this PANEL AM CDT procedure are in the results section. BASIC METABOLIC PANEL Routine 10/05/2018 9:52 Results for this (7) AM CDT procedure are in the results section. MAGNESIUM Routine 10/05/2018 9:52 Results for this AM CDT procedure are in the results section. SIROLIMUS LEVEL Routine 03/30/2018 9:30 Results for this AM CORRECTIONAL THERAPY DIRECTOR procedure are in the results section. CBC W/PLT COUNT & Routine 03/30/2018 9:30 Results for this AUTO DIFFERENTIAL AM CORRECTIONAL THERAPY DIRECTOR procedure are in the results section. HEPATIC FUNCTION Routine 03/30/2018 9:30 Results for this PANEL AM CORRECTIONAL THERAPY DIRECTOR procedure are in the results section. BASIC METABOLIC PANEL Routine 03/30/2018 9:30 Results for this (7) AM CORRECTIONAL THERAPY DIRECTOR procedure are in the results section. MAGNESIUM Routine 03/30/2018 9:30 Results for this AM CORRECTIONAL THERAPY DIRECTOR procedure are in the results section. PHOSPHORUS [...] procedure are in the results section. after 10/06/2017 Results CBC with platelet count + automated diff (10/05/2018 9:52 AM CDT)Only the most recent of4 resultswithin the time period is included. WBC 4.9 3.8 - 10.8 Thousand/uL [facility] RBC 4.90 4.20 - 5.80 Million/uL [facility] Hemoglobin 14.6 13.2 - 17.1 g/dL [facility] Hematocrit 43.8 38.5 - 50.0 % [facility] MCV 89.4 80.0 - 100.0 fL [facility] MCH 29.8 27.0 - 33.0 pg [facility] MCHC 33.3 32.0 - 36.0 g/dL [facility] RDW 13.1 11.0 - 15.0 % [facility] Platelets 153 140 - 400 Thousand/uL [facility] MPV 10.0 7.5 - 12.5 fL [facility] # Neutros 2,940 1,500 - 7,800 cells/uL [facility] # Lymphs 1,308 850 - 3,900 cells/uL [facility] # Monos 426 200 - 950 cells/uL [facility] # Eos 196 15 - 500 cells/uL [facility] # Baso 29 0 - 200 cells/uL [facility] % Neutros 60 % [facility] % Lymphs 26.7 % [facility] % Monos 8.7 % [facility] % Eos 4.0 % [facility] % Baso 0.6 % [facility] Specimen Narrative Performed At FASTING:NO [facility] FASTING: NO Resulting Agency Comment Performing Organization Information: Site ID: Buck Name: [facility] Address: [address] [place] [phone] Director: Dia Wray Performing Organization Address [facility] Phone Number [facility] [address] [place] [address] [facility] Magnesium (10/05/2018 9:52 AM CDT)Only the most recent of4 resultswithin the time period is included. Magnesium, Serum 2.0 1.5 - 2.5 mg/dL [facility] Specimen Narrative Performed At FASTING:NO [facility] FASTING: NO Resulting Agency Comment Performing Organization Information: Site ID: [facility] Name: [facility] Address: [address] [place] [phone] Director: Dia Wray Performing Organization Address [facility] Phone Number [facility] [address] [place] [address] [facility] Hepatic function panel (10/05/2018 9:52 AM CDT)Only the most recent of4 resultswithin the time period is included. Protein, Total, Serum 6.4 6.1 - 8.1 g/dL [facility] Albumin 3.8 3.6 - 5.1 g/dL [facility] GLOBULIN ([facility]) 2.6 1.9 - 3.7 g/dL (calc) [facility] Albumin Globulin Ratio 1.5 1.0 - 2.5 (calc) [facility] Bilirubin, Total 0.5 0.2 - 1.2 mg/dL [facility] Bilirubin, Direct 0.1 < OR=0.2 mg/dL [facility] Bilirubin, Indirect 0.4 0.2 - 1.2 mg/dL (calc) [facility] Alkaline Phosphatase, S 83 40 - 115 U/L [facility] AST (SGOT) 13 10 - 35 U/L [facility] ALT (SGPT) 13 9 - 46 U/L [facility] Specimen Narrative Performed At FASTING:NO [facility] FASTING: NO Resulting Agency Comment Performing Organization Information: Site ID: [facility] Name: [facility] Address: [address] [place] [phone] Director: Dia Wray Performing Organization Address [facility] Phone Number [facility] [address] [place] [address] [facility] Basic Metabolic Panel (10/05/2018 9:52 AM CDT)Only the most recent of4 resultswithin the time period is included. Glucose 105 65 - 139 mg/dL [facility] Comment: Non-fasting reference interval BUN 40 (H) 7 - 25 mg/dL [facility] Creatinine 2.31 (H) 0.70 - 1.18 mg/dL [facility] Comment: For patients >49 years of age, the reference limit for Creatinine is approximately 13% higher for people identified as -Luxembourger. eGFR If NonAfricn Am 27 (L) > OR=60 mL/min/1.73m2 [facility] eGFR If Africn Am 31 (L) > OR=60 mL/min/1.73m2 [facility] BUN/Creatinine Ratio 17 6 - 22 (calc) [facility] Sodium 143 135 - 146 mmol/L [facility] Potassium, Serum 4.6 3.5 - 5.3 mmol/L [facility] Chloride 111 (H) 98 - 110 mmol/L [facility] Carbon Dioxide, Total 24 20 - 32 mmol/L [facility] Calcium, Serum 8.7 8.6 - 10.3 mg/dL [facility] Specimen Narrative Performed At FASTING:NO [facility] FASTING: NO Resulting Agency Comment Performing Organization Information: Site ID: [id number] Name: [facility] Address: [address] [place] [phone] Director: Dia Wray Performing Organization Address [facility] Phone Number [facility] [address] [place] [address] [facility] Sirolimus level (03/30/2018 9:30 AM CORRECTIONAL THERAPY DIRECTOR)Only the most recent of3 resultswithin the time period is included. Rapamycin Trough 5.5 3.0 - 18.0 mcg/L [facility] Comment: This test was developed and its analytical performance characteristics have been determined by [facility]. It has not been cleared or approved by the [place] Food and Drug Administration. This assay has been validated pursuant to the CLIA regulations and is used for clinical purposes. Specimen Resulting Agency Comment Performing Organization Information: Site ID: [id number] Name: [facility] Address: [address] [place] [address] Director: Gulshan Loco M.D., Ph.D Performing Organization Address [facility] Phone Number [facility] [address] [place] [address] [facility] Phosphorus (11/27/2017 8:31 AM CDT) Phosphorus, Serum 3.2 2.1 - 4.3 mg/dL [facility] Specimen Resulting Agency Comment Performing Organization Information: Site ID: [id number] Name: [facility] Address: [address] [place] [address] Director: Dia Wray Performing Organization Address [facility] Phone Number [facility] [address] [place] [address] [facility] after 10/06/2017 Insurance Payer Benefit Plan / Group Subscriber ID Type Phone Address [employer] - MEDICARE MGD [employer] MEDICARE ADV xxxxxxxxx Maps Contracted CARE Advance Directives For more information, please contact:[address] [phone] Code Status Date Activated Date Inactivated Comments Full Code 05/09/2015 12:40 AM 05/11/2015 11:00 AM This code status was determined by: Patient Full Code 02/17/2014 4:54 PM 02/18/2014 2:07 PM This code status was determined by: Patient
--- OUTSIDE RECORDS SUMMARY | 2018-10-07 18:22 | XMS REPORT | Continuity of Care Document ---
:1940 Author Organization [employer] Care Team Providers Name Role Phone [employer] Unavailable Unavailable Problems Problem Status Onset Classification Date Comments Source Date Reported SDH Active 06/26/19 [facility] 19 [facility] Center HEAD INJURY Active 06/26/19 [facility] WITH SDH [facility] Center Chest pain Active 08/02/19 Finding 08/01/[address] [facility] [place] ARF Active 05/07/19 Finding 08/01/[address] [facility] [place] Dehydration Active 05/07/19 Finding 08/01/[address] [facility] [place] TRAUM SUBRAC Active [facility] HEM W LOC OF Medical UNSP DURATION, Center Medications Medication Details Route Status Patient Ordering Order Source Instructions Provider Date Levetiracetam 500 500 mg=1 tab, Active 06/29[facility] MG Oral Tablet PO, Q12H, # 8 2019 Medical [Keppra] tab, 0 Center Refill(s) Acetaminophen 325 650 mg=2 tab, Active 06/29[facility] MG Oral Tablet PO, Q6H, PRN 2019 Medical Pain Score Center 1-3, 0 Refill(s) Magnesium Oxide 800 mg, 2 tab, Inactive 06/29[facility] Route: PO, 2019 Medical Drug form: Center TAB, PRN, Dosing Weight 82.273, kg, PRN Abnormal Lab Result, For NON-ICU Patients Only., Start date: 06/29/18 4:21:00 CDT, Duration: 30 day, Stop date: 07/29/18 4:20:00 CDTNotes: (Same as: Mag-Ox 400) Magnesium oxide [id number] elemental magnesium Dose=____mg magnesium oxide (___mg elemental magnesium) Magnesium Sulfate 2 gm, 50 mL, Inactive [facility] Route: IVPB, 2019 Medical Drug form: Center INJ, PRN, Dosing Weight 82.273, kg, PRN Abnormal Lab Result, For NON-ICU Patients Only., Start date: 06/29/18 4:21:00 CDT, Duration: 30 day, Stop date: 07/29/18 4:20:00 CDTNotes: WASTE: F/P - Sink; E - Municipal Trash Bin Calcium Gluconate 2 gm, 20 mL, Inactive [facility] Route: IVPB, 2018 Medical PRN, Dosing Center Weight 82.273, kg, PRN Abnormal Lab Result, For NON-ICU Patients Only., Start date: 06/29/18 4:21:00 CDT, Duration: 30 day, Stop date: 07/29/18 4:20:00 CDTNotes: WASTE: F/P - Sink; E - Municipal Trash Bin sodium phosphate 15 mmol, 5 mL, Inactive [facility] Route: IVPB, 2018 Medical PRN, Dosing Center Weight 82.273, kg, PRN Abnormal Lab Result, For NON-ICU Patients Only., Start date: 06/29/18 4:21:00 CDT, Duration: 30 day, Stop date: 07/29/18 4:20:00 CDTNotes: Infuse over 4 hour. Do not infuse phosphorous concurrently in the same line as TPN or IVF that contains calcium. For double lumen central lines, phosphorous may be infused in a separate lumen from TPN. Potassium 20 mEq, 1 tab, Inactive [facility] Chloride Route: PO, 2019 Medical Drug form: [place] ERTAB, PRN, Dosing Weight 82.273, kg, PRN Abnormal Lab Result, For NON-ICU Patients Only, Start date: 06/29/18 4:21:00 CDT, Duration: 30 day, Stop date: 07/29/18 4:20:00 CDTNotes: (Same as: K-Dur 20) "Do Not Crush" Give with food and full glass of water For patients unable to swallow tablet, dissolve in one half glass of water. Allow about 2 minutes for the tablets to disintegrate. Stir before giving to prepare slurry and administer. Please exclude Patients with feeding tube less than 14 [place] (Dobhoff, J-tube etc) and pediatric and patients. potassium 2 pkt, Route: Inactive [facility] phosphate-sodium PO, Drug Form: 2019 Medical phosphate 250 PDR/REC, [place] mg-280 mg-160 mg Dosing Weight oral powder for 82.273, kg, reconstitution PRN, PRN Abnormal Lab Result, For NON-ICU Patients Only, Start date: 06/29/18 4:21:00 CDT, Duration: 30 day, Stop date: 07/29/18 4:20:00 CDTNotes: (Same as: Phos-NaK) Each 1.5 gm pkt has 250mg phosphorous. Mix w/2.5oz water and stir. potassium 30 mmol, 10 Inactive [facility] phosphate mL, Route: 2019 Medical IVPB, PRN, [place] Dosing Weight 82.273, kg, PRN Abnormal Lab Result, For NON-ICU Patients Only., Start date: 06/29/18 4:21:00 CDT, Duration: 30 day, Stop date: 07/29/18 4:20:00 CDTNotes: (Same as: K Phosphate.) Do not infuse phosphorous concurrently in the same line as TPN or IVF that contains calcium. For double lumen central lines, phosphorous may be infused in a separate lumen from TPN. 1 mMol phoshate has 1.47 mEq potassium Infuse over 4 hours sugammadex 500 mg, 5 mL, No Longer [facility] Route: IV, Active 2018 Medical Drug form: PAUL Mcfadden, Priority: NOW, Start date: 06/28/18 14:16:00 CDT, Duration: 1 doses or times, Stop date: 06/28/18 14:21:00 CDTNotes: (Same as: Bridion) sugammadex (ANES) Route: IV, Inactive [facility] Drug form: 2018 [facility] ELIZ HERNÁNDEZ [place] Stop date: 06/28/18 11:26:00 CDT niCARdipine Route: IV, Inactive [facility] (ANES) Drug form: 2019 Medical INJ, ONCE, [place] Stop date: 06/28/18 11:26:00 CDT ondansetron Route: IV, Inactive [facility] (ANES) Drug form: 2019 Medical INJ, ONCE, [place] Stop date: 06/28/18 11:17:00 CDT protamine (ANES) Route: IV, Inactive [facility] Drug form: 2019 Medical INJ, ONCE, [place] Stop date: 06/28/18 11:12:00 CDT diphenhydrAMINE Route: IV, Inactive [facility] (ANES) Drug form: 2018 Medical INJ, ONCE, Center Stop date: 06/28/18 10:52:00 CDT Nicardipine 20 mg, 200 mL, No Longer [facility] Rate: Titrate, Active 2018 Medical Start Dose: 5 Center mg/hr, Titration: 2.5 mg/hr every 15 minutes, Goal(s): SBP 90-140, Max Dose: 15 mg/hr, Route: IV, Dosing Weight 82.273 kg, Total Volume: 200, Start date: 06/28/18 10:47:00 CDT, Duration: 30 day, Stop date: 0...Notes: Same as: Cardene Concentration: (0.1 mg/ 1 ml) phenylephrine Route: IV, Inactive [facility] (ANES) Drug form: 2018 Medical INJ, ONCE, Center Stop date: 06/28/18 10:42:00 CDT fentaNYL (ANES) Route: IV, Inactive [facility] Drug form: 2018 Medical INJ, ONCE, Center Stop date: 06/28/18 9:52:00 CDT propofol (ANES) Route: IV, Inactive [facility] Drug form: 2018 Medical INJ, ONCE, Center Stop date: 06/28/18 9:52:00 CDT rocuronium (ANES) Route: IV, Inactive [facility] Drug form: 2018 Medical INJ, ONCE, Center Stop date: 06/28/18 9:52:00 CDT heparin (ANES) Route: IV, Inactive [facility] Drug form: 2018 Medical INJ, ONCE, Center Stop date: 06/28/18 9:42:00 CDT DepoMedrol (ANES) Route: IV, Inactive 06/28[facility] Drug form: 2018 Medical INJ, ONCE, Center Stop date: 06/28/18 9:32:00 CDT iodixanol 150 mL, Route: Inactive [facility] INTRAARTERIAL, 2019 Medical Dosing Weight Center 82.273, kg, ONCE, Start date: 06/28/18 9:18:00 CDT, Stop date: 06/28/18 9:18:00 CDT Ondansetron 4 mg, Route: Inactive [facility] IVP, ONCE, 2019 Medical Dosing Weight Center 82.273, kg, PRN Nausea & Vomiting, Start date: 06/28/18 9:16:00 CDT Hydralazine 10 mg, Route: Inactive [facility] IVP, Q20Min, 2019 Medical Dosing Weight Center 82.273, kg, PRN Elevated BP, Start date: 06/28/18 9:16:00 CDT, Duration: 2 doses or times, Stop date: Limited # of times Fentanyl 25 microgram, Inactive [facility] Route: IVP, 2019 Medical Q5Min, Dosing Center Weight 82.273, kg, PRN Pain Score 4-6, Priority: Routine, Start date: 06/28/18 9:16:00 CDT, Duration: 4 doses or times, Stop date: Limited # of times Flumazenil 0.2 mg, Route: Inactive [facility] IVP, PRN, 2019 Medical Dosing Weight Center 82.273, kg, PRN Benzodiazepine Reversal, Initial dose, Start date: 06/28/18 9:16:00 CDT, Duration: 30 day, Stop date: 07/28/18 9:15:00 CDT Naloxone 0.4 mg, Route: Inactive [facility] IVP, Q2MIN, 2019 Medical Dosing Weight Center 82.273, kg, PRN Narcotic Reversal, Start date: 06/28/18 9:16:00 CDT, Duration: 8 doses or times, Stop date: Limited # of times cetirizine 5 mg, 1 tab, No Longer [facility] Route: PO, Active 2019 Medical Drug form: Center TAB, Daily, Start date: 06/28/18 9:00:00 CDT, Duration: 30 day, Stop date: 07/27/18 9:00:00 CDTNotes: (Same As: Zyrtec) Sodium Chloride Route: IV, Inactive [facility] 0.9% IV (ANES) Total Volume: 2019 Medical 1000 mL 1,000, Start Center date: 06/28/18 8:30:00 CDT, Stop date: 06/28/18 9:30:00 CDT Levetiracetam 500 500 mg, 1 tab, No Longer [place] MG Oral Tablet Route: PO, Active 2018 Medical [Keppra] Drug form: Center TAB, Q12H, Dosing Weight 82.273, kg, Start date: 06/27/18 21:00:00 CDT, Duration: 30 day, Stop date: 07/27/18 15:00:00 CDTNotes: (Same as:Keppra) heparin 5,000 unit, 1 No Longer [facility] mL, Route: Active 2018 Medical SUB-Q, Drug Center form: INJ, Q8H, Dosing Weight 82.273, kg, Start date: 06/27/18 16:00:00 CDT, Duration: 30 day, Stop date: 07/27/18 8:00:00 CDTNotes: porcine heparin Dexamethasone 6 mg, 1 tab, No Longer [facility] Route: PO, Active 2018 Medical Drug form: Center TAB, Q6H, Dosing Weight 82.273, kg, Start date: 06/27/18 12:00:00 CDT, Duration: 30 day, Stop date: 07/27/18 6:00:00 CDTNotes: Give with food. Loratadine 10 mg, 1 tab, No Longer [facility] Route: PO, Active 2018 Medical Drug form: [place] TAB, Daily, Dosing Weight 82.273, kg, Start date: 06/27/18 11:24:00 CDT, Duration: 30 day, Stop date: 07/27/18 9:00:00 CDTNotes: 1 hr before meals (Same as: Claritin) Non-formulary item cetirizine 2.5 mg, 2.5 Inactive [facility] mL, Route: PO, 2018 Medical Drug form: [place] SYRP, Daily, Start date: 06/27/18 9:30:00 CDT, Duration: 30 day, Stop date: 07/27/18 9:00:00 CDTNotes: (Same as: Zyrtec) Famotidine 20 mg, 1 tab, No Longer [facility] Route: PO, Active 2018 Medical Drug form: [place] TAB, Q12H, Dosing Weight 82.273, kg, Start date: 06/27/18 9:00:00 CDT, Duration: 30 day, Stop date: 07/26/18 21:00:00 CDTNotes: (Same as: Pepcid) Metamucil 3.4 gm, 1 pkt, No Longer [place] Route: PO, Active 2019 Medical Drug Form: [place] PDR/REC, Dosing Weight 82.273, kg, TID, Start date: 06/27/18 9:00:00 CDT, Duration: 30 day, Stop date: 07/26/18 17:00:00 CDTNotes: (Same as: Metamucil) Mix in 8 oz liquid with meal. Loratadine 10 mg, 1 tab, Inactive [place] Route: PO, 2019 Medical Drug form: [place] TAB, Daily, Dosing Weight 82.273, kg, Start date: 06/27/18 9:00:00 CDT, Duration: 30 day, Stop date: 07/26/18 9:00:00 CDTNotes: 1 hr before meals (Same as: Claritin) Non-formulary item multivitamin 1 tab, Route: No Longer [facility] PO, Drug Form: Active 2019 Medical TAB, Dosing Center Weight 82.273, kg, Daily, Start date: 06/27/18 9:00:00 CDT, Duration: 30 day, Stop date: 07/26/18 9:00:00 CDTNotes: (Same as:Thera) WASTE: F/P - Black; E - Municipal Trash Bin Take with food. Folic Acid 1 mg, 1 tab, No Longer [place] Route: PO, Active 2018 Medical Drug form: [place] TAB, Daily, Dosing Weight 82.273, kg, Start date: 06/27/18 9:00:00 CDT, Duration: 30 day, Stop date: 07/26/18 9:00:00 CDTNotes: (Same as: Folvite) Thiamine 100 mg, 1 tab, No Longer [place] Route: PO, Active 2019 Medical Drug form: [place] TAB, Daily, Dosing Weight 82.273, kg, Start date: 06/27/18 9:00:00 CDT, Duration: 30 day, Stop date: 07/26/18 9:00:00 CDTNotes: (Same As: Vitamin B1) methylPREDNISolon 125 mg, Route: Inactive [facility] e SODium IVP, Drug 2019 Medical SUCCinate form: INJ, Center Q8H, Dosing Weight 82.273, kg, Start date: 06/27/18 8:00:00 CDT, Duration: 24 hr, Stop date: 06/28/18 0:00:00 CDT Hydrocortisone 200 mg, 4 mL, Inactive [facility] Route: IV, 2019 Medical Drug form: [place] PDR/INJ, ONCE, Dosing Weight 82.273, kg, Priority: NOW, Start date: 06/27/18 7:19:00 CDT, Stop date: 06/27/18 7:19:00 CDTNotes: (Same as: Solu-CORTEF) Benadryl 25 mg, 0.5 mL, No Longer [facility] Route: IV, Active 2019 Medical Drug form: Center INJ, ONCE, Dosing Weight 82.273, kg, PRN Itching, Start date: 06/27/18 7:18:00 CDTNotes: (Same as: Benadryl) Benadryl 25 mg, 0.5 mL, Inactive [facility] Route: IV, 2019 Medical Drug form: [place] INJ, Q8H, Dosing Weight 82.273, kg, PRN Itching, Priority: NOW, Start date: 06/27/18 7:14:00 CDT, Duration: 1 day, Stop date: 06/28/18 7:13:00 CDTNotes: (Same as: Benadryl) methylPREDNISolon 125 mg, 2 mL, Inactive [facility] e SODium Route: IVP, 2019 Medical SUCCinate Drug form: Center INJ, Q8H, Dosing Weight 82.273, kg, Priority: NOW, Start date: 06/27/18 7:14:00 CDT, Duration: 1 day, Stop date: 06/28/18 0:00:00 CDTNotes: (Same as:Solu-MEDROL , A-Methapred) Benadryl 25 mg, Route: Inactive [facility] IV, Q8H, 2019 Medical Dosing Weight Center 82.273, kg, PRN Itching, Start date: 06/27/18 7:10:00 CDT, Duration: 30 day, Stop date: 07/27/18 7:09:00 CDT Lopressor 50 mg, 1 tab, No Longer [place] Route: PO, Active 2018 Medical Drug form: [place] ERTAB, Q12H, Dosing Weight 82.273, kg, Start date: 06/26/18 21:00:00 CDT, Duration: 30 day, Stop date: 07/26/18 15:00:00 CDTNotes: (Same as: Toprol XL) May split tab, but do not crush. Doxazosin 2 mg, 1 tab, No Longer [place] Route: PO, Active 2018 Medical Drug form: [place] TAB, Bedtime, Dosing Weight 82.273, kg, Start date: 06/26/18 21:00:00 CDT, Duration: 30 day, Stop date: 07/25/18 21:00:00 CDTNotes: (Same as: Cardura) Allopurinol 100 mg, 1 tab, No Longer [place] Route: PO, Active 2018 Medical Drug form: [place] TAB, Q12H, Dosing Weight 82.273, kg, Start date: 06/26/18 21:00:00 CDT, Duration: 30 day, Stop date: 07/26/18 9:00:00 CDTNotes: (Same as: Zyloprim) normal saline 1,000 mL, No Longer [place] 0.9% IV 1,000 mL Rate: 100 Active 2018 Medical ml/hr, Infuse [place] over: 10 hr, Route: IV, Dosing Weight 82.273 kg, Total Volume: 1,000, Start date: 06/26/18 19:27:00 CDT, Duration: 30 day, Stop date: 07/26/18 19:26:00 CDT, 2.04, m2 sirolimus 1 mg, 1 tab, No Longer [place] Route: PO, Active 2018 Medical Drug form: [facility], QAM, Dosing Weight 82.273, kg, Start date: 06/26/18 12:30:00 CDT, Duration: 30 day, Stop date: 07/26/18 8:00:00 CDTNotes: (Same as: Rapamune) mycophenolate 250 mg, 1 cap, No Longer [facility] mofetil Route: PO, Active 2018 Medical Drug form: [place] CAP, [id number], Dosing Weight 82.273, kg, Start date: 06/26/18 12:30:00 CDT, Duration: 30 day, Stop date: 07/26/18 8:00:00 CDTNotes: SEPARATE ANTACIDS from [employer] by 2 hrs. (Same As: CellCept) Sirolimus 2 mg, 2 tab, Inactive [facility] Route: PO, 2019 Medical Drug form: [place] TAB, QAM, Dosing Weight 82.273, kg, Start date: 06/26/18 12:30:00 CDT, Duration: 30 day, Stop date: 07/26/18 8:00:00 CDTNotes: (Same as: Rapamune) sirolimus 1 mg 1 mg=1 tab, Active [facility] oral tablet PO, QAM, 0 2019 Medical Refill(s) [place] mycophenolate 250 mg=1 cap, Active [facility] mofetil 250 mg PO, BID, 0 2019 Medical oral capsule Refill(s) [place] metoprolol 50 mg 50 mg=1 tab, Active [facility] oral tablet, PO, BID, 0 2019 Medical extended release Refill(s) [place] Folic Acid 0.4 MG 0.4 mg=1 tab, Active [facility] Oral Tablet PO, Daily, # 2019 Medical 100 tab, 0 Center Refill(s) Vitamin D3 5000 5,000 Active [facility] intl units oral IntlUnit=1 2019 Medical capsule cap, PO, Center Daily, # 30 cap, 1 Refill(s) sirolimus 1 mg 2 mg=2 tab, Inactive [facility] oral tablet PO, Daily, 0 2019 Medical Refill(s) [place] PreserVision PO, Daily, 0 Active [facility] AREDS 2 Refill(s) 2019 Medical [place] allopurinol 100 100 mg=1 tab, Active [facility] mg oral tablet PO, BID, 0 2019 Medical Refill(s) [place] doxazosin 2 mg 2 mg=1 tab, Active [facility] oral tablet PO, Bedtime, 0 2019 Medical Refill(s) [place] Fish Oil 1200 mg 1,200 mg=1 Active [facility] oral capsule cap, PO, TID, 2019 Medical 0 Refill(s) [place] Levetiracetam 500 mg, Route: No Longer [place] IVPB, Q12H, Active 2018 Medical Dosing Weight [place] 82.273, kg, Start date: 06/26/18 9:00:00 CDT, Duration: 30 day, Stop date: 07/25/18 21:00:00 CDTNotes: Same as Keppra Mix with 100 mL NS, LR or D5W MEDICATION WASTE Product Size: 500 mg Product Wasted: ___ mg Saline Flush 0.9% 10 ml, Route: No Longer [place] IVP, Drug Active 2018 Medical Form: INJ, [place] Dosing Weight 82.273, kg, Q12H, Start date: 06/26/18 9:00:00 CDT, Duration: 30 day, Stop date: 07/25/18 21:00:00 CDTNotes: (Same as: BD Posiflush) Docusate Sodium 100 mg, 1 cap, No Longer [place] 100 MG Oral Route: PO, 2018 Medical Capsule Drug form: [place] CAP, Q12H, Dosing Weight 82.273, kg, Start date: 06/26/18 9:00:00 CDT, Duration: 30 day, Stop date: 07/25/18 21:00:00 CDTNotes: (Same as: Colace) (Do Not Crush) sennosides, FPC 8.6 mg, 1 tab, No Longer [place] Route: PO, Active 2018 Medical Drug Form: [place] TAB, Dosing Weight 82.273, kg, Q12H, Start date: 06/26/18 9:00:00 CDT, Duration: 30 day, Stop date: 07/25/18 21:00:00 CDTNotes: (Same as: Senokot) Famotidine 20 mg, 2 mL, No Longer [facility] Route: IVP, Active 2018 Medical Drug form: [place] INJ, Daily, Dosing Weight 82.273, kg, Start date: 06/26/18 9:00:00 CDT, Duration: 30 day, Stop date: 07/25/18 9:00:00 CDTNotes: (Same as: Pepcid) Can be dilute in 5-10cc NS IVP: Slow IV push over at least 2 minutes. pantoprazole 40 mg, 1 tab, No Longer [place] Route: PO, Active 2018 Medical Drug form: [place] ECTAB, Daily, Dosing Weight 82.273, kg, Start date: 06/26/18 9:00:00 CDT, Duration: 30 day, Stop date: 07/25/18 9:00:00 CDTNotes: Tablet should not be chewed or crushed. (Same as: Protonix) Tylenol 650 mg, 2 tab, No Longer [place] Route: PO, Active 2018 Medical Drug form: [place] TAB, Q6H, Dosing Weight 82.273, kg, PRN Pain Score 1-3, Start date: 06/26/18 8:19:00 CDT, Duration: 30 day, Stop date: 07/26/18 8:18:00 CDTNotes: Do not exceed 4 gm/day. (Same as: Tylenol) Morphine 1 mg, 0.25 mL, No Longer [place] Route: IVP, Active 2018 Medical Drug form: [place] SOLN, Q2H, Dosing Weight 82.273, kg, PRN Pain Score 7-10, Start date: 06/25/18 23:56:00 CDT, Duration: 30 day, Stop date: 07/25/18 23:55:00 CDTNotes: (Same as:MORPhine Sulfate) Insulin regular 10 unit, 0.1 No Longer [place] mL, Route: Active 2018 Medical SUB-Q, Drug Center form: SOLN, Sliding Scale, Dosing Weight 82.273, kg, PRN Blood Glucose Results, Start date: 06/25/18 23:56:00 CDT, Duration: 30 day, Stop date: 07/25/18 23:55:00 CDTNotes: (Same as: Humulin R) Roll in palms of hands gently; Do not shake vigorously. "single patient use only" (Restricted to patients requiring a dose > 60 units) WASTE: F/P - Black; E - Municipal Trash Bin Stable for 28 days at room temperature Expires in days from Date Saline Flush 0.9% 10 ml, Route: No Longer [place] IVP, Drug Active 2018 Medical Form: INJ, Center Dosing Weight 82.273, kg, PRN, PRN Line Flush, Start date: 06/25/18 23:56:00 CDT, Duration: 30 day, Stop date: 07/25/18 23:55:00 CDTNotes: (Same as: BD Posiflush) Bisacodyl 10 mg, 1 supp, No Longer [facility] Route: WI, Active 2018 Medical Drug form: Center SUPP, Daily, Dosing Weight 82.273, kg, PRN Constipation, Start date: 06/25/18 23:56:00 CDT, Duration: 30 day, Stop date: 07/25/18 23:55:00 CDTNotes: (Same As: Dulcolax, Bisco-Lax) Labetalol 10 mg, 2 mL, No Longer [facility] Route: IVP, Active 2018 Medical Drug form: [place] INJ, Q15Min, Dosing Weight 82.273, kg, PRN Hypertension, Start date: 06/25/18 23:56:00 CDT, Duration: 3 doses or times, Stop date: Limited # of times Ondansetron 4 mg, 2 mL, No Longer [place] Route: IVP, Active 2018 Medical Drug form: [place] INJ, Q8H, Dosing Weight 82.273, kg, PRN Nausea & Vomiting, Start date: 06/25/18 23:56:00 CDT, Duration: 30 day, Stop date: 07/25/18 23:55:00 CDTNotes: (Same as: Yolettefran) MEDICATION WASTE Product Size: 4 mg Product Wasted: ___ mg normal saline 1,000 mL, No Longer [place] 0.9% IV 1,000 mL Rate: 75 Active 2019 Medical ml/hr, Infuse Center over: 13.3 hr, Route: IV, Dosing Weight 82.273 kg, Total Volume: 1,000, Start date: 06/25/18 23:55:00 CDT, Duration: 30 day, Stop date: 07/25/18 23:54:00 CDT, 2.04, m2 Acetaminophen 650 mg, Route: Inactive [facility] PO, Drug form: 2019 Medical TAB, ONCE, Center Dosing Weight 82.273, kg, Priority: STAT, Start date: 06/25/18 21:35:00 CDT, Stop date: 06/25/18 21:35:00 CDT Ondansetron 4 mg, 2 mL, Inactive [facility] Route: IVP, 2019 Medical Drug form: Center INJ, ONCE, Dosing Weight 82.273, kg, Priority: STAT, Start date: 06/25/18 20:35:00 CDT, Stop date: 06/25/18 20:35:00 CDTNotes: (Same as: Zofran) MEDICATION WASTE Product Size: 4 mg Product Wasted: ___ mg Keppra 1,000 mg, Inactive [facility] Route: IV, 2018 Medical ONCE, Dosing Center Weight 82.273, kg, Start date: 06/25/18 19:43:00 CDT, Stop date: 06/25/18 19:43:00 CDT Allopurinol TWICE DAILY Active [facility] [place] Lisinopril AT BEDTIME Active [facility] [place] Metoprolol TWICE DAILY Active [facility] St[facility] Succinate [facility] [place] Mycophenolate TWICE DAILY Active [facility] St[facility] Mofetil [facility] [place] Sirolimus DAILY Active [facility] [place] Allergies, Adverse Reactions, Alerts Substance Category Reaction Severity Reaction Status Date Comments Source type Reported Iodinated Hives/Lalo Allergy to Active [facility] St. Contrast- h Substance [facility] Oral and IV [place] Dye iodine Assertion flushing Drug Active [facility] of the allergy Robertson face. Immunizations No Data Provided for This Section Results Order Name Results Value Reference Date Interpretation Comments Source Range ELECTROLYT AGAP 12.5 10.0 - 06/29 [facility] . [facility] Center ELECTROLYT Calcium Lvl 7.8 8.5 - 10.5 06/29 [facility] ELECTROLYT eGFR 36 06/29 Result [facility] Comment: The Medical eGFR is Center calculated using the CKD-EPI formula. In most young, healthy individuals the eGFR will be >90 mL/min/1.73m2 . The eGFR declines with age. An eGFR of 60-89 may be normal in some populations, particularly the elderly, for whom the CKD-EPI formula has not been extensively validated. Use of the eGFR is not recommended in the following populations:< br/>
Lissett viduals with unstable creatinine concentration s, including patients and those with serious co-morbid conditions.<b r/>
Patie nts with extremes in muscle mass or diet.

The data above are obtained from the National Kidney Disease Education Program (NKDEP) which additionally recommends that when the eGFR is used in patients with extremes of body mass index for purposes of drug dosing, the eGFR should be multiplied by the estimated BMI. ELECTROLYT Chloride Lvl 118 95 - 109 06/[address] ELECTROLYT CO2 19 24 - 32 06/[address] ELECTROLYT Creatinine 1.79 0.50 - 06/29 [facility] Lvl 1.40 [facility] ELECTROLYT Sodium Lvl 146 135 - 145 06/[address] ELECTROLYT Glucose Lvl 106 70 - 99 06/[address] ELECTROLYT BUN 26 7 - 22 06/[address] ELECTROLYT Potassium 3.5 3.5 - 5.1 06/[address] CHEM PANEL Phosphorus 1.9 2.5 - 4.5 06/[address] CHEM PANEL Magnesium 1.4 1.8 - 2.4 06/[address] HEMATOLOGY Lymphocytes 7.9 20.0 - 06/29 [facility] 40.0 [facility] HEMATOLOGY Segs 89.4 45.0 - 06/29 [facility] 75.0 [facility] HEMATOLOGY Lymphocytes 0.6 1.0 - 5.5 06/29 [facility] HEMATOLOGY Neutrophils 6.6 1.5 - 8.1 06/[address] HEMATOLOGY Monocytes # 0.2 0.0 - 0.8 06/[address] HEMATOLOGY Basophils 0.1 0.0 - 1.0 06/[address] HEMATOLOGY Monocytes 2.6 2.0 - 12.0 06/[address] HEMATOLOGY Platelet 179 133 - 450 06/[address] Center HEMATOLOGY RDW 16.3 11.5 - 06/29 [place] 14.5 /2018 [facility] HEMATOLOGY MPV 7.8 7.4 - 10.4 06/29 [facility] Center HEMATOLOGY MCHC 33.4 32.0 - 06/29 [place] 36.0 /2018 [facility] HEMATOLOGY MCV 90.7 80.0 - 06/29 [place] 94.0 /2018 [facility] HEMATOLOGY Hct 35.9 42.0 - 06/29 [place] 54.0 /2018 [facility] HEMATOLOGY MCH 30.3 27.0 - 06/29 [place] 31.0 /2018 [facility] HEMATOLOGY Hgb 12.0 14.0 - 06/29 [place] 18.0 /2018 [facility] HEMATOLOGY WBC 7.4 3.7 - 10.4 06/29 [facility] HEMATOLOGY RBC 3.96 4.70 - 06/29 [place] 6.10 [facility] PARATHYROI Ca Norm WB 1.08 1.05 - 06/29 [facility] D PROFILE 1. [facility] PARATHYROI Ca Ion WB 1.09 1.05 - 06/29 [place] D PROFILE 1. [facility] DRUG U Amph Scr Negative Negative 06/29 [place] SCREEN * Medical (06/28/18 8:58 PM) Center DRUG U Benzodiaz Negative Negative 06/29 [facility] SCREEN Scr * Medical (06/28/18 8:58 PM) Center DRUG U Agnes Scr Negative Negative 06/29 [place] SCREEN * Medical (06/28/18 8:58 PM) Center DRUG U Cannab Scr Negative Negative 06/29 [place] SCREEN * Medical (06/28/18 8:58 PM) Center DRUG U Cocaine Negative Negative 06/29 [place] SCREEN Scr *NA Medical (06/28/18 8:58 PM) Center DRUG UDS Note See Note 06/29 [place] SCREEN * Medical (06/28/18 8:58 PM) Center DRUG U Opiate Scr Negative Negative 06/29 [place] SCREEN * Medical (06/28/18 8:58 PM) Center DRUG U Negative Negative 06/29 [place] SCREEN Phencyclidin * Medical e Scr (06/28/18 8:58 PM) Center URINE AND UA RBC <1 0 - 2 06/29 [facility] STOOL Medical Center URINE AND UA Spec Grav 1.030 <=1.030 06/29 [facility] STOOL Medical Center URINE AND UA Turbidity Marked Clear 06/29 [place] STOOL *ABN* Medical (06/28/18 8:58 PM) Center URINE AND UA pH 5.0 5.0 - 8.0 06/29 [facility] STOOL [facility] URINE AND UA Bili Negative Negative 06/29 [place] STOOL *NA* /2018 [facility] (06/28/18 8:58 PM) Center URINE AND UA Ketones Negative Negative 06/29 [facility] STOOL *NA* [facility] (06/28/18 8:58 PM) [place] URINE AND UA Color Yellow Yellow 06/29 [facility] STOOL *NA* [facility] (06/28/18 8:58 PM) [place] URINE AND UA Blood Small Negative 06/29 [facility] STOOL *ABN* [facility] (06/28/18 8:58 PM) [place] URINE AND UA Glucose Negative Negative 06/29 [facility] STOOL *NA* [facility] (06/28/18 8:58 PM) [place] URINE AND UA Protein 100 mg/dL Negative 06/29 [facility] STOOL mg/dL [facility] URINE AND UA WBC 1 0 - 5 06/29 [facility] STOOL [facility] URINE AND UA Sq Epi None Seen Few 06/29 [facility] (06/28/18 8:58 PM) [facility] URINE AND UA Leuk Est Moderate Negative 06/29 [facility] STOOL *ABN* [facility] (06/28/18 8:58 PM) Center URINE AND UA Nitrite Negative Negative 06/29 [facility] STOOL (06/28/18 8:58 PM) [facility] URINE AND UA <1.0 0.1 - 1.0 06/29 [facility] STOOL Urobilinogen /2018 [facility] HEMATOLOGY POC 233 06/28 [facility] Activated Medical Clotting Center Time HEMATOLOGY POC 245 06/28 [facility] Activated Medical Clotting Center Time HEMATOLOGY POC 143 06/28 [facility] Activated [facility] Clotting Center Time BLOOD BANK Antibody Negative 06/28 [facility] RESULTS Scrn (06/28/18 3:46 AM) [facility] Center BLOOD BANK ABO/Rh O POS 06/28 [place] RESULTS /2018 Medical Center CHEM PANEL Magnesium 1.9 1.8 - 2.4 06/28 [facility] CHEM PANEL Phosphorus 1.9 2.5 - 4.5 06/28 [facility] ELECTROLYT AGAP 13.0 10.0 - 06/28 [facility] ES 20.0 [facility] ELECTROLYT eGFR 37 06/28 Result [facility] Comment: The Medical eGFR is Center calculated using the CKD-EPI formula. In most young, healthy individuals the eGFR will be >90 mL/min/1.73m2 . The eGFR declines with age. An eGFR of 60-89 may be normal in some populations, particularly the elderly, for whom the CKD-EPI formula has not been extensively validated. Use of the eGFR is not recommended in the following populations:< br/>
Lissett viduals with unstable creatinine concentration s, including patients and those with serious co-morbid conditions.<b r/>
Patie nts with extremes in muscle mass or diet.

The data above are obtained from the National Kidney Disease Education Program (NKDEP) which additionally recommends that when the eGFR is used in patients with extremes of body mass index for purposes of drug dosing, the eGFR should be multiplied by the estimated BMI. ELECTROLYT Calcium Lvl 8.4 8.5 - 10.5 06/28 [facility] ELECTROLYT BUN 26 7 - 22 06/28 [facility]2018 [facility] ELECTROLYT Glucose Lvl 119 70 - 99 06/28 [facility]2018 [facility] ELECTROLYT Potassium 4.0 3.5 - 5.1 06/28 [facility] ELECTROLYT Sodium Lvl 144 135 - 145 06/28 [facility]2018 [facility] ELECTROLYT Creatinine 1.76 0.50 - 06/28 [facility] Lvl 1.40 /2018 [facility] ELECTROLYT Chloride Lvl 114 95 - 109 06/28 [facility] ELECTROLYT CO2 21 24 - 32 06/28 [facility]2018 [facility] HEMATOLOGY INR 1.07 0.85 - 06/28 [facility] 1.17 [facility] HEMATOLOGY PT 13.7 12.0 - 06/28 [place] 14.7 [facility] HEMATOLOGY PTT 27.4 22.9 - 06/28 [place] 35.8 [facility] HEMATOLOGY TEG Interp Thrombelas 06/28 [facility] tograph /2018 [facility] show shortened value of R. 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 CPT:93935 HEMATOLOGY Coag Index 3.2 -3.0-3.0 - 06/28 [facility] 3.0 [facility] HEMATOLOGY TEG Data See Note 06/28 [facility] (06/28/18 3:46 AM) [facility] HEMATOLOGY G-value 9.8 4.5 - 11.0 06/28 [facility] HEMATOLOGY Ly30 0.0 0.0 - 7.5 06/28 2018 [facility] HEMATOLOGY Max Amp 66.3 50.0 - 06/28 [facility] 70.0 [facility] HEMATOLOGY K-time 1.7 1.0 - 3.0 06/28 [facility] HEMATOLOGY Angle 68.4 53.0 - 06/28 [facility] 72.0 [facility] HEMATOLOGY R-time 2.6 5.0 - 10.0 06/28 [facility] HEMATOLOGY WBC 8.2 3.7 - 10.4 06/28 [facility] HEMATOLOGY MCHC 33.7 32.0 - 06/28 [place] 36.0 [facility] HEMATOLOGY MCH 30.3 27.0 - 06/28 [place] 31.0 [facility] HEMATOLOGY MCV 90.1 80.0 - 06/28 [place] 94.0 2019 [facility] HEMATOLOGY Hgb 12.7 14.0 - 06/28 [place] 18.0 [facility] HEMATOLOGY RBC 4.18 4.70 - 06/28 [place] 6.10 [facility] HEMATOLOGY Hct 37.7 42.0 - 06/28 [place] 54.0 2019 [facility] HEMATOLOGY RDW 16.1 11.5 - 06/28 [place] 14.5 2019 [facility] HEMATOLOGY MPV 8.6 7.4 - 10.4 06/28 [facility] HEMATOLOGY Platelet 203 133 - 450 06/28 [facility] HEMATOLOGY Lymphocytes 0.9 1.0 - 5.5 06/28 [facility] # [facility] HEMATOLOGY Monocytes # 0.1 0.0 - 0.8 06/[address] HEMATOLOGY Basophils 0.6 0.0 - 1.0 06/28 2018 [facility] HEMATOLOGY Neutrophils 7.2 1.5 - 8.1 06/28 [place] # /2018 [facility] HEMATOLOGY Eosinophils 0.1 0.0 - 4.0 06/28 [facility] HEMATOLOGY Monocytes 0.9 2.0 - 12.0 06/28 [facility] HEMATOLOGY Lymphocytes 10.5 20.0 - 06/28 [place] 40.0 [facility] HEMATOLOGY Segs 87.9 45.0 - 06/28 [facility] 75.0 [facility] HEMATOLOGY Plt Morph Normal 06/28 [facility] (06/28/18 3:46 AM) [facility] HEMATOLOGY RBC Morph Normal 06/28 [facility] (06/28/18 3:46 AM) [facility] PARATHYROI Ca Ion WB 1.15 1.05 - 06/28 [facility] D PROFILE . [facility] PARATHYROI Ca Norm WB 1.13 1. - 06/28 [facility] D PROFILE 05.04 [facility] CHEM PANEL eGFR 35 06/27 [facility] Comment: The [facility] eGFR is Center calculated using the CKD-EPI formula. In most young, healthy individuals the eGFR will be >90 mL/min/1.73m2 . The eGFR declines with age. An eGFR of 60-89 may be normal in some populations, particularly the elderly, for whom the CKD-EPI formula has not been extensively validated. Use of the eGFR is not recommended in the following populations:< br/>
Lissett viduals with unstable creatinine concentration s, including patients and those with serious co-morbid conditions.<b r/>
Patie nts with extremes in muscle mass or diet.

The data above are obtained from the National Kidney Disease Education Program (NKDEP) which additionally recommends that when the eGFR is used in patients with extremes of body mass index for purposes of drug dosing, the eGFR should be multiplied by the estimated BMI. CHEM PANEL Calcium Lvl 8.7 8.5 - 10.5 06/27 [facility] CHEM PANEL CO2 24 24 - 32 06/27 [facility] CHEM PANEL Sodium Lvl 144 135 - 145 06/27 [facility] CHEM PANEL Creatinine 1.85 0.50 - 06/27 [facility] Lvl 1.40 [facility] CHEM PANEL Potassium 4.0 3.5 - 5.1 06/27 [facility] CHEM PANEL Chloride Lvl 113 95 - 109 06/[address] CHEM PANEL BUN 25 7 - 22 06/[address] CHEM PANEL Glucose Lvl 88 70 - 99 06/[address] CHEM PANEL AGAP 11.0 10.0 - 06/27 [facility] 20.0 [facility] CHEM PANEL Phosphorus 3.3 2.5 - 4.5 06/[address] CHEM PANEL Magnesium 2.0 1.8 - 2.4 06/27 [facility] HEMATOLOGY Basophils # 0.1 0.0 - 0.2 06/[address] HEMATOLOGY Eosinophils 0.1 0.0 - 0.5 06/27 [facility] [address] [place] [address] HEMATOLOGY Plt Morph Normal 06/27 [facility] (06/27/18 12:21 AM) [facility] HEMATOLOGY Segs 64.6 45.0 - 06/27 [facility] 75.0 [facility] HEMATOLOGY Lymphocytes 25.7 20.0 - 06/27 [facility] 40.0 [facility] HEMATOLOGY Eosinophils 2.0 0.0 - 4.0 06/[address] HEMATOLOGY Monocytes 6.8 2.0 - 12.0 06/[address] HEMATOLOGY Neutrophils 4.1 1.5 - 8.1 06/27 [facility] HEMATOLOGY Basophils 0.9 0.0 - 1.0 06/[address] HEMATOLOGY Monocytes # 0.4 0.0 - 0.8 06/27 [facility] [address] [place] [address] HEMATOLOGY Lymphocytes 1.6 1.0 - 5.5 06/27 [facility] HEMATOLOGY RBC Morph Normal 06/27 [facility] (06/27/18 12:21 AM) [facility] HEMATOLOGY TEG Interp Thrombelas 06/27 [facility] togra [facility] show shortened value of R. 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 CPT:46397 HEMATOLOGY Ly30 0.0 0.0 - 7.5 06/[address] HEMATOLOGY G-value 10.5 4.5 - 11.0 06/[address] HEMATOLOGY Coag Index 3.2 -3.0-3.0 - 06/27 [place] 3.0 /2019 [facility] HEMATOLOGY K-time 1.4 1.0 - 3.0 06/27 [facility] HEMATOLOGY Angle 70.7 53.0 - 06/27 [place] 72.0 2019 [facility] HEMATOLOGY Max Amp 67.8 50.0 - 06/27 [place] 70.0 2019 [facility] HEMATOLOGY R-time 3.2 5.0 - 10.0 06/27 [facility] HEMATOLOGY TEG Data See Note 06/27 [facility] (06/27/18 12:21 AM) [facility] HEMATOLOGY INR 1.05 0.85 - 06/27 [facility] 1.17 [facility] HEMATOLOGY PT 13.5 12.0 - 06/27 [facility] 14.7 [facility] HEMATOLOGY PTT 33.5 22.9 - 06/27 [place] 35.8 [facility] HEMATOLOGY MCH 30.3 27.0 - 06/27 [place] 31.0 [facility] HEMATOLOGY MCV 90.2 80.0 - 06/27 [place] 94.0 2019 [facility] HEMATOLOGY MPV 7.7 7.4 - 10.4 06/27 [facility] HEMATOLOGY Platelet 190 133 - 450 06/27 [facility] HEMATOLOGY MCHC 33.5 32.0 - 06/27 [place] 36.0 2019 [facility] HEMATOLOGY RDW 16.1 11.5 - 06/27 [facility] 14.5 2019 [facility] HEMATOLOGY WBC 6.3 3.7 - 10.4 06/27 [facility] HEMATOLOGY Hgb 13.3 14.0 - 06/27 [place] 18.0 2019 [facility] HEMATOLOGY Hct 39.6 42.0 - 06/27 [place] 54.0 2019 [facility] HEMATOLOGY RBC 4.39 4.70 - 06/27 [place] 6.10 [facility] PARATHYROI Ca Norm WB 1.12 1.05 - 06/27 [facility] D PROFILE 1. [facility] PARATHYROI Ca Ion WB 1.15 1.05 - 06/27 [facility] D PROFILE . [facility] CHEM PANEL Bili Total 0.7 0.2 - 1.3 06/26 [facility]2018 [facility] CHEM PANEL Alk Phos 80 39 - 136 06/26 [facility] CHEM PANEL Albumin Lvl 2.6 3.5 - 5.0 06/26 [facility] CHEM PANEL Globulin 3.4 2.7 - 4.2 06/26 [facility]2018 [facility] CHEM PANEL A/G Ratio 0.8 0.7 - 1.6 06/26 [facility]2018 [facility] CHEM PANEL ALT 16 0 - 65 06/26 [facility]2018 [facility] CHEM PANEL AST 13 0 - 37 06/26 [facility] CHEM PANEL B/C Ratio 15 6 - 25 06/26 [facility] CHEM PANEL Total 6.0 6.4 - 8.4 06/26 [facility] TOXICOLOGY Rapamycin 3.9 5.0 - 15.0 06/26 [facility] BACTERIAL MRSA by PCR Negative 06/26 [facility] - SEROLOGY (06/26/18 5:59 AM) /2018 [facility] BLOOD BANK Antibody Negative 06/26 [facility] RESULTS Scrn (06/25/18 7:59 PM) /2018 [facility] BLOOD BANK ABO/Rh O POS 06/26 [facility] RESULTS [facility] CARDIAC Troponin-I <0.02 0.00 - 06/26 [facility] ENZYMES 0.40 [facility] CHEM PANEL Lactic Acid 1.2 0.5 - 2.2 06/26 [facility] HEMATOLOGY Eosinophils 0.2 0.0 - 4.0 06/26 [facility] HEMATOLOGY Estimated % 0.0 0.0 - 7.5 06/26 [facility] Lysis Rapid [facility] HEMATOLOGY R-time Rapid 0.4 0.4 - 0.7 06/26 [facility] HEMATOLOGY K-time Rapid 0.8 0.6 - 2.3 06/26 [facility] HEMATOLOGY G-value 15.7 5.0 - 11.6 06/[address] HEMATOLOGY Max 76 52 - 71 06/26 [facility] HEMATOLOGY [place] 0.4 06/26 [facility] [address] [place] [address] HEMATOLOGY ACT (TEG) 89 86 - 118 06/[address] HEMATOLOGY Angle Rapid 82 64 - 80 06/26 [facility]2018 [facility] HEMATOLOGY PTT 37.2 22.9 - 06/26 [place] 35.8 [facility] HEMATOLOGY INR 1.00 0.85 - 03/19 [facility] 1.17 /2018 [facility] HEMATOLOGY PT 13.0 12.0 - 06/26 [facility] 14.7 /2019 [facility] Laboratory White Blood 8.8 4.3 - 10.9 08/01 [facility] St. Studies Count /2017 [facility] Red Cell 15.7 12.1 - 08/01 [facility] St. Studies Distribution 15.2 /2017 [facility] Red Blood 4.61 4.33 - 08/01 [facility] St. Studies Count 5.43 /2017 [facility] Platelet 203 152 - 406 08/01 [facility] St. Studies Count /2017 [facility] Neutrophils 69.5 41.7 - 08/01 [facility] St. Studies % 73.7 /2017 [facility] Monocytes % 8.0 3.3 - 12.3 08/01 [facility] St. Studies /2017 [facility] Mean 7.9 7.6 - 11.3 08/01 [facility] St. Studies Platelet /2017 [facility] Volume [place] [facility] Mean 89.8 80 - 100 08/01 [facility] St. Studies Corpuscular /2017 [facility] [place] [facility] Mean 32.9 32.0 - 08/01 [facility] St. Studies Corpuscular 36.0 [facility] Hemoglobin [place] Concent Laboratory Mean 29.5 27.0 - 08/01 [facility] St. Studies Corpuscular 35.0 [facility] Hemoglobin [place] [facility] Lymphocytes 20.5 15.3 - 08/01 [facility] St. Studies % 44.8 [facility] Hemoglobin 13.6 13.6 - 08/01 [facility] St. Studies 17.9 /2017 [facility] Hematocrit 41.4 39.6 - 08/01 [facility] St. Studies 49.0 /2017 [facility] Eosinophils 1.3 0 - 4.4 08/01 [facility] St. Studies % /2017 [facility] Basophils % 0.7 0 - 1.3 08/01 [facility] St. Studies /2017 [facility] Absolute 6.1 1.8 - 8.0 08/01 [facility] St. Studies Neutrophil /2017 [facility] Absolute 0.7 0.1 - 1.3 08/01 [facility] St. Studies Monocytes /2018 [facility] (CBC) [place] [facility] Absolute 1.8 0.7 - 4.9 08/01 [facility] St. Studies Lymphocytes /2018 [facility] ([facility] [place] [facility] Absolute 0.1 0 - 0.5 08/01 [facility] St. Studies Eosinophils /2017 [facility] (CBC) [place] [facility] Absolute 0.1 0 - 0.5 08/01 [facility] St. Studies Basophils /2017 [facility] (CBC) [place] [facility] Sodium Level 140 135 - 145 08/01 [facility] St. Studies /2018 [facility] Potassium 4.2 3.6 - 5.0 08/01 [facility] St. Studies Level /2018 [facility] Glucose 104 65 - 120 08/01 [facility] St. Studies Level /2018 [facility] Estimat 37 90 08/01 [facility]. Studies Glomerular /2017 [facility] Filtration [place] Rate Laboratory Creatinine 1.81 0.61 - 08/01 [facility]. Studies 1. [facility] Chloride 114 101 - 111 08/01 [facility] St. Studies Level /2018 [facility] Carbon 23 21 - 31 08/01 [facility]. Studies Dioxide /2017 [facility] Level [place] [facility] Calcium 8.3 8.5 - 10.5 08/01 [facility]. Studies Level /2018 [facility] Blood Urea 26 6 - 20 08/01 [facility]. Studies Nitrogen /2017 [facility] Troponin I <0.03 07/31 [facility] St. Studies /2018 [facility] D-Dimer 1495 0 - 500 07/31 [facility] St. Studies /2018 [facility] Urine pH 5.0 07/31 [facility] St. Studies /2018 [facility] Urine Total Urine 07/31 [facility]. Studies Protein Total /2017 [facility] Protein [place] [facility] Urine 1.020 07/31 [facility] St. Studies Specific /2017 [facility] [place] [facility] Urine Urine 07/31 [facility]. Studies Nitrite Nitrite /2017 [facility] Urine Urine 07/31 [facility]. Studies Leukocyte Leukocyte /2017 [facility] Esterase Esterase [place] [facility] Urine Urine 07/31 [facility]. Studies Ketones Ketones /2017 [facility] Urine Urine 04/23 [facility] Studies Glucose Glucose [facility] Urine Blood Urine 07/31 [facility] Studies Blood [facility] B-Type 82 07/31 [facility]. Studies Natriuretic [facility] Peptide [place] [facility] Creatine 2.4 0.3 - 4.0 07/31 [facility] Studies Kinase MB [facility] Prothrombin 11.8 9.5 - 12.5 07/31 [facility]. Studies Time /2017 [facility] INR 1.00 07/31 [facility] Studies Internationa /2017 [facility] l Normalized [place] Ratio Laboratory Activated 29.0 24.3 - 07/31 [facility] Studies Partial 36.9 [facility] Thromboplast [place] Time Laboratory Total 0.7 0.3 - 1.2 07/31 [facility] Studies Bilirubin [facility] Serum Total 6.8 6.0 - 8.3 07/31 [facility] Studies Protein [facility] Magnesium 1.9 1.8 - 2.5 07/31 [facility] Studies Level /2017 [facility] Globulin 3.3 2.3 - 3.5 07/31 [facility]. Studies /2017 [facility] Direct 0.1 0 - 0.2 07/31 [facility] Studies Bilirubin [facility] Creatine 62 22 - 269 07/31 [facility]. Studies Kinase /2017 [facility] Aspartate 19 10 - 42 07/31 [facility]. Studies Amino Transf [facility] (AST/SGOT) [place] [facility] Alkaline 65 42 - 121 07/31 [facility] Studies Phosphatase [facility] Albumin/Glob 1.1 1.1 - 1.8 07/31 [facility] Studies ulin Ratio /2017 [facility] Albumin 3.5 3.2 - 5.5 07/31 [facility]. Studies /2017 [facility] Alanine 14 10 - 60 07/31 [facility] Studies Aminotransfe /2017 [facility] [place] (ALT/SGPT) Laboratory Rapid <0.03 07/31 [facility] Studies Troponin I /2017 [facility] Urine WBC Urine WBC 06/[address] [facility] [place] [facility] Urine Urine 06/[address] [facility] Studies Squamous Squamous /2017 [facility] Epithelial Epithelial [place] Cells Cells Laboratory Urine RBC <5 06/[address] [facility] [place] [facility] Urine Urine 06/[address] [facility] Studies Culture Culture [facility] Reflexed [facility]lexed [place] [facility] Urine <20 06/[address] [facility] [address] Studies Bacteria [facility] [place] [facility] Amylase 81 28 - 100 06/[address] [facility] [address] Studies Level /2017 [facility] [place] [facility] Lipase 28 22 - 51 06/[address] [facility] 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 DLP: 993.15 mGycm DISCUSSION: Decreased right hemispheric subdural hematoma with trace residual. Improvement in the mass effect with minimal residual [id number] midline shift. Stable appearance of the brain parenchyma. Embolization material in the region of the right middle meningeal artery. IMPRESSION: Interval decrease in the right hemispheric subdural hematoma with trace residual measuring 6 mm in greatest thickness Angiogram cervical PROCEDURE: 06/28/2018 [facility] artery bilateral VR 1. Diagnostic Cerebral Angiogram Center 2. Transarterial Embolization: Right Middle Meningeal Artery DATE: 06/28/2018 7:24 CDT INDICATION: Chronic subdural hematoma HISTORY: Patient is a 77-year-old male with past medical history significant for liver transplant 20 years prior, hypertension, and chronic right subdural hematoma with mass effect following mechanical fall 2 weeks ago. Given this, transarterial embolization of the right middle meningeal artery was proposed as a potential treatment for his chronic subdural hematoma. REFERRING PROVIDER: Vanessa Xiao MD ATTENDING: Chandu Marie MD was present and immediately available for the entire procedure, performing all critical portions and reviewing all angiographic results. FELLOW: Suzanne Solorio MD COMPARISON: None FLUOROSCOPY TIME: 87.1 minutes CONTRAST: 100 cc MEDICATIONS: See anesthesia records. RADIATION DOSE: Cumulative Air KERMA Frontal: 2089 mGy Cumulative Air KERMA Lateral: 452.5 mGy PROCEDURE: Once informed consent was obtained describing all the risks, benefits and alternatives of the procedure the patient was brought to the interventional suite and placed in the supine position w here general anesthesia was administered by the anesthesiology staff. The patient was then prepped and draped in the usual sterile fashion. The right femoral artery was accessed using a single wall micr opuncture technique and a 6-South African sheath was placed. A 5-South African Vert catheter was coaxially advanced over a 0.035 Terumo Glidewire through the sheath into the aorta arch to select the below mentioned a rteries using roadmap technique. Two-dimensional angiography was performed in biplane projections. After review of the angiographic data, 5000 units of heparin IV was given. A 6-South African Benchmark 071 guide catheter over 5-South African Penumbra Select Vert catheter over a 0.035 Terumo Glidewire was advanced into the aortic arch to select the right external carotid artery. The diagnostic catheter was withdrawn. Next, using roadmap guidance, an [place] SL -10 microcatheter over a Synchro 2 soft microwire wa s advanced through the guide catheter into the right middle meningeal artery. Superselective runs of the right middle meningeal artery were performed to evaluate for any potential dangerous anastomoses. Distal branches of the right middle meningeal artery were then selected and 100-300 um Embospheres were slowly infused under blank roadmap technique. This was done until sluggish flow was seen within t he right middle meningeal artery demonstrating near-complete embolization. We then pulled our microcatheter back into the main trunk of the right middle meningeal artery. Filling and finishing coils wer e placed using roadmap technique within the main trunk of the right middle meningeal artery. Post embolization superselective angiographic runs were performed demonstrating complete obliteration of the right middle meningeal artery. There was no evidence of reflux or distal thromboembolic event. After review of the angiography data, the catheter was withdrawn. Right femoral artery angiogram was performed and the catheter was removed. The femoral artery sheath was removed and closed by the appl ication of a Mynx closure device. Post procedure neurological examination was at the patient's baseline. The patient was was then transferred to PACU for post procedure care. TASKS: 1. Right common carotid artery catheterization and 2-D cervical angiogram 2. Right internal carotid artery selective catheterization and 2-D angiogram 3. Right external carotid artery selective catheterization and 2-D angiogram 4. Right middle meningeal artery superselective catheterization and 2-D angiogram 5. Transarterial embolization: Right middle meningeal artery 6. Right common femoral artery catheterization and 2-D angiogram 7. Application of Mynx vascular closure device COILS: Axium Prime [place] 2mm x 8cm Axium Prime [place] 2mm x 8cm Axium Prime [place] 2.5mm x 8cm Axium Prime [place] 3mm x 8cm Axium Prime [place] 3mm x 8cm Axium Prime [place] 4mm x 6cm EMBOSPHERE: 100-300 um PRE-TREATMENT FINDINGS: 1. Right common carotid artery: Right common carotid artery injection and cervical angiogram reveals antegrade flow into the external and internal carotid arteries with normal filling of the external ca rotid artery branches. Course and caliber of the cervical portion of the internal carotid artery are unremarkable. Further inspection demonstrates no evidence of dissection, stenosis, aneurysm, or other vascular abnormality within the common carotid artery into the cervical segment of the internal carotid artery. 2. Right internal carotid artery: Right internal carotid artery injection reveals antegrade filling of the distal internal carotid artery, ophthalmic artery, anterior cerebral artery, middle cerebral ar nabila and the distal branches. Further inspection of the remaining right internal carotid artery circulation revealed no evidence of cerebral aneurysm, arteriovenous malformation, arterial stenosis or ot her vascular abnormalities. Capillary and venous phase images were also unremarkable with no evidence of venoocclusive disease. 3. Right external carotid artery: Right external carotid artery injection reveals antegrade opacification of the right external carotid artery and branches. There is no evidence of abnormal intracranial communication or early venous shunting. 4. Right middle meningeal artery: Right middle meningeal artery injection reveals antegrade opacification of the right middle meningeal artery and branches. There is no evidence of abnormal intracranial communication or early venous shunting. POST-TREATMENT FINDINGS: 1. 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 There was no evidence of reflux into the internal carotid artery circulation or distal thromboembolic event. 2. Right common femoral artery: Right common femoral artery injection demonstrates arterial catheterization above the level of the bifurcation. There was no evidence of dissection or occlusion within the right common femoral artery. IMPRESSION: 1. Right middle meningeal artery injection reveals antegrade opacification of the right middle meningeal artery and branches. There is no evidence of abnormal intracranial communication or early venous shunting. 2. Successful transarterial embolization of the right middle meningeal artery with a combination of embospheres and coils. Chest 1view DX EXAM: XR CHEST 1 VIEW 06/26/2018 [facility] DATE: 06/26/2018 2:58 CDT Center INDICATION: pre-op clearance - pre-op clearance. FINDINGS: A single AP semierect view of the chest is submitted without a prior study for comparison. The patient is rotated to the left, causing leftward shift of the heart and mediastinum. There is bibasilar subsegmental atelectasis. No pleural effusions. IMPRESSION: Bibasilar subsegmental atelectasis. Ext Lower Venous EXAM: US BILATERAL LOWER EXTREMITY VENOUS DOPPLER 2018 [facility] Doppler Bilat US DATE: 06/26/2018 2:07 T Center INDICATION: Assessment for deep venous thrombosis COMPARISON: None. TECHNIQUE: Multiplanar grayscale, color Doppler and spectral Doppler ultrasound of the bilateral lower extremity veins FINDINGS: Right Thigh Veins: Common Femoral: Patent. Femoral (SFV): Patent. Popliteal: Patent. Proximal Greater Saphenous: Patent. Proximal Deep Femoral Veins: Patent. Left Thigh Veins: Common Femoral: Patent. Femoral (SFV): Patent. Popliteal: Patent. Proximal Greater Saphenous: Patent. Proximal Deep Femoral Veins: Patent. Other: None. IMPRESSION: 1. No deep venous thrombosis (DVT). Brain wo contrast CT EXAM: CT BRAIN 06/25/2018 [facility] DATE: 06/25/2018 at 23:31 Center CLINICAL INFORMATION: Subdural hemorrhage COMPARISON: CT brain 06/25/2018 at 15:07 TECHNIQUE: Axial images of the brain were obtained from the skull base through the vertex without contrast material administration. DLP: 969 mGycm DISCUSSION: No important change in the acute on chronic right hemispheric subdural hematoma with minimal mass effect. Stable hemorrhage along the right tentorium and posterior interhemispheric fissure. No parenchym al or intraventricular hemorrhage. No hydrocephalus or brain herniation. IMPRESSION: Stable exam Spine-Outside Consult EXAM: CT CERVICAL SPINE WITHOUT CONTRAST 06/25/2018 [facility] CT DATE: 06/25/2018 at 0000 hours Center INDICATION: - fall, second interpretation requested COMPARISON: None. TECHNIQUE: Noncontrast CT images of the cervical spine, obtained at [facility]. Axial, sagittal and coronal images provided. UT SECTION: ER FINDINGS: The spine is imaged from the skull base to the level of T2. There is mild levoscoliosis of the cervical spine which could be positional. Multilevel degenerative changes of the spine are visualized with multilevel small anterior osteophytes, multilevel facet and uncovertebral hypertrophy. Diffuse posterior disc bulges noted at C6-C7 level causing mild to moderate central canal stenosis. Vertebral body heights are preserved. No acute fracture or malalignment. 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 The pre and paravertebral soft tissues are within normal limits. There is no apical pneumothorax. IMPRESSION: No acute fracture or malalignment the cervical spine Brain-Outside Consult EXAM: CT BRAIN 06/25/2018 [facility] CT DATE: 06/25/2018 Center CLINICAL INFORMATION: - Fall outside consult COMPARISON: None TECHNIQUE: Axial images of the brain were obtained from the skull base through the vertex without contrast material administration. DLP: mGycm DISCUSSION: Mixed density right hemispheric subdural hematoma measuring 10 mm in greatest thickness resulting in mild mass effect upon the right cerebral hemisphere. 5 mm right to left midline shift. Hyperdensity along the tentorium and posterior interhemispheric fissure due to trace subdural hemorrhage. No acute bony lesions. Paranasal sinuses are clear. 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 Thin tentorial and interhemispheric subdural hematoma. Consultation Notes No Data Provided for This Section Discharge Summaries No Data Provided for This Section History and Physicals No Data Provided for This Section Vital Signs Vital Sign Value Date Comments Source Temperature Oral (F) 97.0 F 06/29/2018 [facility] Respitory Rate 18 06/29/2018 [facility] Heart Rate 57 06/29/2018 [facility] Systolic (mm Hg) 138 06/29/2018 [facility] Diastolic (mm Hg) 62 06/29/2018 [facility] Respitory Rate 18 06/29/2018 [facility] Heart Rate 53 06/29/2018 [facility] Temperature Oral (F) 97.7 F 06/29/2018 [facility] Systolic (mm Hg) 112 06/29/2018 [facility] Diastolic (mm Hg) 59 06/29/2018 [facility] Systolic (mm Hg) 107 06/29/2018 [facility] Diastolic (mm Hg) 60 06/29/2018 [facility] Respitory Rate 16 06/29/2018 [facility] Heart Rate 66 06/29/2018 [facility] Temperature Oral (F) 97.3 F 06/29/2018 [facility] Weight 82.273 06/25/2018 [facility] BMI Calculated 25.3 06/25/2018 [facility] Height 180.34 cm 06/25/2018 [facility] Height 70 08/01/2017 [facility] Weight 189 08/01/[address] [facility] Temperature Oral (F) 97.0 F 08/01/[address] [facility] Heart Rate 65 08/01/[address] [facility] Respitory Rate 18 08/01/[address] [facility] Systolic (mm Hg) 137 08/01/[address] [facility] Diastolic (mm Hg) 74 08/01/[address] [facility] Encounters Location Location Encounter Encounter Reason Attending ADM DC Status Source Details Type Number For Provider Date Date Visit [facility]arted [id number] 06/15 06/[address] [facility]2017 [facility] Registered [id number] 07/[address] [facility] Discharged [id number] 07/31 08/[address] [facility] [place] [facility] Inpatient [id number] Vanessa 06/25 06/29 [facility] /2018 [facility] Phone [id number] 07/02 07/04 [facility] Message /2018 [facility] Outpatient [id number] TRAUMA 07/12 [facility]2018 [facility] Out[facility] Diag [id number] Enrico 07/12 07/13 [facility] Outpatient [id number] Dc 07/12 07/13 [facility] Procedures Procedure Code Date Perfomer Comments Source Selective catheter [id number] [facility] placement, common [address] [place] [address] carotid or innominate artery, unilateral, any approach, with angiography of the ipsilateral extracranial carotid circulation and all associated radiological supervision and interpretation, includes angiography of the c Selective catheter 18392 [facility] placement, external [address] [place] [address] carotid artery, unilateral, with angiography of the ipsilateral external carotid circulation and all associated radiological supervision and interpretation (List separately in addition to code for primary procedure) Selective catheter [address] [facility] placement, internal [address] [place] [address] carotid artery, unilateral, with angiography of the ipsilateral intracranial carotid circulation and all associated radiological supervision and interpretation, includes angiography of the extracranial carotid and ce Chest Single View [id number] [facility] [place] Stone Protocol [id number] [facility] [place] [id number] [facility] [place] Count [id number] [facility] [place] Assessment and Plan No Data Provided for This Section Plan of Care Plan of Care Date Source Instructions 08/01/[address] [facility] Nonspecific Chest Pain, [id number] PROBLEM: (chest pain) GOAL: Clear understanding of disease process INSTRUCTIONS: Follow up with Dr. Kaye and Dr. Rojas Diet: Activity: Instructions 08/01/[address] [facility] Nonspecific Chest Pain, [id number] PROBLEM: (chest pain) GOAL: Clear understanding of disease process INSTRUCTIONS: Follow up with Dr. Kaye and Dr. Rojas Diet: Activity: Social History Social History Date Source Social History TypeResponse 06/26/2018 [facility] Smoking Status Never smoker; Previous treatment: None; Ready to change: No; Concerns about tobacco use in household: No; Exposure to Tobacco Smoke None; Cigarette Smoking Last 365 Days No; Reg Smoking Cessation Counseling No entered on: 06/26/18 Social History TypeResponse 06/26/2018 [facility] Smoking Status Never smoker; Previous treatment: None; Ready to change: No; Concerns about tobacco use in household: No; Exposure to Tobacco Smoke None; Cigarette Smoking Last 365 Days No; Reg Smoking Cessation Counseling No entered on: 06/26/18 Social History TypeResponse 06/26/2018 [facility] Smoking Status Never smoker; Previous treatment: None; Ready to change: No; Concerns about tobacco use in household: No; Exposure to Tobacco Smoke None; Cigarette Smoking Last 365 Days No; Reg Smoking Cessation Counseling No entered on: 06/26/18 Query Response Date Recorded Comment 08/01/2017 [facility] Alcohol Use? No July 31, 2017 6:24pm CD- Drugs? No July 31, 2017 6:24pm Query Response Start Date Stop Date Smoking Status Never smoker Family History Value Date Source Query Response Instance Date Recorded Comment 08/01/2017 [facility] Nurses notes from Liver cancer Mother July 31, 2017 6:24pm Medical History Cancer Liver disease Mother July 31, 2017 6:24pm Medical History Heart disease Diabetes Father July 31, 2017 6:24pm Medical History Heart disease Diabetes May 06, 2015 11:30am Advance Directives Order Name Results Value Date Source Advance Directives Advance Directives Advance Directive Response Recorded Date/Time 08/01/2017 [facility] - Does Patient Have Living Will [place] Yes August 01, 2017 6:00am 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
--- OUTSIDE RECORDS SUMMARY | 2018-10-07 18:23 | XMS REPORT | Summary of Care ---
:1940 Author Organization [facility] Neurosurgery [facility] Address [address] [place] [address], [address] [place] [address]- Encounter HQ Encntr_alias(FIN) [id number] Date(s): 07/02/18 - 07/03/18 [facility] [address] [place] [address] [place] [address]- Vital Signs No data available for this section Problem List No data available for this section Allergies, Adverse Reactions, Alerts Substance Reaction Severity Status iodine flushing of the face. Active Medications No data available for this section Results No data available for this section Immunizations No data available for this section Procedures No data available for this section Social History Social History Type Response Smoking Status Never smoker; Previous treatment: None; Ready to change: No; Concerns about tobacco use in household: No; Exposure to Tobacco Smoke None; Cigarette Smoking Last 365 Days No; Reg Smoking Cessation Counseling No entered on: 06/26/18 Assessment and Plan No data available for this section
--- OUTSIDE RECORDS SUMMARY | 2018-10-07 18:23 | XMS REPORT | Summary of Care ---
:1940 Author Organization [facility] Address [address], [place] [address]- Encounter HQ Laurantr_bernie(FIN) [phone] Date(s): 06/25/18 - 06/29/18 [facility] [address] [place] [address] Professional Services provided by [facility] [place] [address]- Discharge Disposition: Home or Self Care Attending Physician: Vanessa Xiao MD Admitting Physician: Travis Mobley MD Vital Signs Most recent to oldest 1 2 3 [Reference Range]: Height 180.34 cm (06/25/18 6:42 PM) Temperature Oral [96.4-99.1 97.0 DegF 97.7 DegF 97.3 DegF DegF] (06/29/18 12:30 PM) (06/29/18 8:00 AM) (06/29/18 4:21 AM) Blood Pressure [90-140/60-90 138/62 mmHg 112/59 mmHg 107/60 mmHg mmHg] (06/29/18 12:30 PM) (06/29/18 8:00 AM) (06/29/18 4:21 AM) Respiratory Rate [14-20 BRMIN] 18 BRMIN 18 BRMIN 16 BRMIN (06/29/18 12:30 PM) (06/29/18 8:00 AM) (06/29/18 4:21 AM) Peripheral Pulse Rate [60-100 57 bpm 53 bpm 66 bpm bpm] *LOW* *LOW* (06/29/18 4:21 AM) (06/29/18 12:30 PM) (06/29/18 8:00 AM) Weight 82.273 kg (06/25/18 6:42 PM) Body Mass Index 25.3 m2 (06/25/18 6:42 PM) Problem List No data available for this section Allergies, Adverse Reactions, Alerts Substance Reaction Severity Status iodine flushing of the face. Active Medications acetaminophen 650 mg, Route: PO, Drug form: TAB, ONCE, Dosing Weight 82.273, kg, Priority: STAT, Start date: 06/25/18 21:35:00 CDT, Stop date: 06/25/18 21:35:00 CDT Start Date: 06/25/18 Stop Date: 06/25/18 Status: Completedacetaminophen 325 mg oral tablet 650 mg=2 tab, PO, Q6H, PRN Pain Score 1-3, 0 Refill(s) Start Date: 06/29/18 Status: Orderedallopurinol 100 mg, 1 tab, Route: PO, Drug form: TAB, Q12H, Dosing Weight 82.273, kg, Start date: 06/26/18 21:00:00 CDT, Duration: 30 day, Stop date: 07/26/18 9:00:00 CDT Notes: (Same as: Zyloprim) Start Date: 06/26/18 Stop Date: 06/29/18 Status: Discontinuedallopurinol 100 mg oral tablet 100 mg=1 tab, PO, BID, 0 Refill(s) Start Date: 06/26/18 Status: OrderedANES fentaNYL 25 microgram, Route: IVP, Q5Min, Dosing Weight 82.273, kg, PRN Pain Score 4-6, Priority: Routine, Start date: 06/28/18 9:16:00 CDT, Duration: 4 doses or times , Stop date: Limited # of times Start Date: 06/28/18 Stop Date: 06/28/18 Status: DiscontinuedANES flumazenil 0.2 mg, Route: IVP, PRN, Dosing Weight 82.273, kg, PRN Benzodiazepine Reversal, Initial dose, Start date: 06/28/18 9:16:00 CDT, Duration: 30 day, Stop date: 9:15:00 CDT Start Date: 06/28/18 Stop Date: 06/28/18 Status: DiscontinuedANES hydrALAZINE 10 mg, Route: IVP, Q20Min, Dosing Weight 82.273, kg, PRN Elevated BP, Start date : 06/28/18 9:16:00 CDT, Duration: 2 doses or times, Stop date: Limited # of times Start Date: 06/28/18 Stop Date: 06/28/18 Status: DiscontinuedANES naloxone 0.4 mg, Route: IVP, Q2MIN, Dosing Weight 82.273, kg, PRN Narcotic Reversal, Start date: 06/28/18 9:16:00 CDT, Duration: 8 doses or times, Stop date: Limited # of times Start Date: 06/28/18 Stop Date: 06/28/18 Status: DiscontinuedANES ondansetron 4 mg, Route: IVP, ONCE, Dosing Weight 82.273, kg, PRN Nausea & Vomiting, Start date: 06/28/18 9:16:00 CDT Start Date: 06/28/18 Stop Date: 06/28/18 Status: DiscontinuedBenadryl 25 mg, 0.5 mL, Route: IV, Drug form: INJ, ONCE, Dosing Weight 82.273, kg, PRN Itching, Start date: 06/27/18 7:18:00 CDT Notes: (Same as: Benadryl) Start Date: 06/27/18 Stop Date: 06/29/18 Status: DiscontinuedBenadryl 25 mg, 0.5 mL, Route: IV, Drug form: INJ, Q8H, Dosing Weight 82.273, kg, PRN Itching, Priority: NOW,Start date: 06/27/18 7:14:00 CDT, Duration: 1 day, Stop date: 06/28/18 7:13:00 CDT Notes: (Same as: Benadryl) Start Date: 06/27/18 Stop Date: 06/27/18 Status: DiscontinuedBenadryl 25 mg, Route: IV, Q8H, Dosing Weight 82.273, kg, PRN Itching, Start date: 7:10:00 CDT, Duration: 30 day, Stop date: 07/27/18 7:09:00 CDT Start Date: 06/27/18 Stop Date: 06/27/18 Status: Discontinuedbisacodyl 10 mg, 1 supp, Route: MI, Drug form: SUPP, Daily, Dosing Weight 82.273, kg, PRN Constipation, Start date: 06/25/18 23:56:00 CDT, Duration: 30 day, Stop date: 23:55:00 CDT Notes: (Same As: Dulcolax, Bisco-Lax) Start Date: 06/25/18 Stop Date: 06/29/18 Status: Discontinuedcalcium gluconate + Sodium Chloride 0.9% IV 100 mL 2 gm, 20 mL, Route: IVPB, PRN, Dosing Weight 82.273, kg, PRN Abnormal Lab Result , For NON-ICU Patients Only., Start date: 06/29/18 4:21:00 CDT, Duration: 30 day , Stop date: 07/29/18 4:20:00 CDT Notes: WASTE: F/P - Sink; E - Municipal Trash Bin Start Date: 06/29/18 Stop Date: 06/29/18 Status: Discontinuedcalcium gluconate + Sodium Chloride 0.9% IV 100 mL 3 gm, 30 mL, Route: IVPB, PRN, Dosing Weight 82.273, kg, PRN Abnormal Lab Result , For NON-ICU Patients Only., Start date: 06/29/18 4:21:00 CDT, Duration: 30 day , Stop date: 07/29/18 4:20:00 CDT Notes: WASTE: F/P - Sink; E - Municipal Trash Bin Start Date: 06/29/18 Stop Date: 06/29/18 Status: DiscontinuedCardene 20 mg in NS 200 mL (Titrate.) IV 20 mg 20 mg, 200 mL, Rate: Titrate, Start Dose: 5 mg/hr, Titration: 2.5 mg/hr every 15 minutes, Goal(s): SBP 90-140, Max Dose: 15 mg/hr, Route: IV, Dosing Weight 82.273 kg, Total Volume: 200, Start date: 06/28/18 10:47:00 CDT, Duration: 30 day, Stop date: 0... Notes: Same as: CardeneConcentration: (0.1 mg/ 1 ml) Start Date: 06/28/18 Stop Date: 06/29/18 Status: Discontinuedcetirizine 5 mg, 1 tab, Route: PO, Drug form: TAB, Daily, Start date: 06/28/18 9:00:00 CDT , Duration: 30 day, Stop date: 07/27/18 9:00:00 CDT Notes: (Same As: Janntec) Start Date: 06/28/18 Stop Date: 06/27/18 Status: Canceledcetirizine 2.5 mg, 2.5 mL, Route: PO, Drug form: SYRP, Daily, Start date: 06/27/18 9:30:00 CDT, Duration: 30 day, Stop date: 07/27/18 9:00:00 CDT Notes: (Same as: Zyrtec) Start Date: 06/27/18 Stop Date: 06/27/18 Status: DeletedDepoMedrol (ANES) Route: IV, Drug form: INJ, ONCE, Stop date: 06/28/18 9:32:00 CDT Start Date: 06/28/18 Stop Date: 06/28/18 Status: Completeddexamethasone 6 mg, 1 tab, Route: PO, Drug form: TAB, Q6H, Dosing Weight 82.273, kg, Start date: 06/27/18 12:00:00CDT, Duration: 30 day, Stop date: 07/27/18 6:00:00 CDT Notes: Give with food. Start Date: 06/27/18 Stop Date: 06/28/18 Status: DiscontinueddiphenhydrAMINE (ANES) Route: IV, Drug form: INJ, ONCE, Stop date: 06/28/18 10:52:00 CDT Start Date: 06/28/18 Stop Date: 06/28/18 Status: Completeddocusate 100 mg, 1 cap, Route: PO, Drug form: CAP, Q12H, Dosing Weight 82.273, kg, Start date: 06/26/18 9:00:00 CDT, Duration: 30 day, Stop date: 07/25/18 21:00:00 CDT Notes: (Same as: Colace) (Do Not Crush) Start Date: 06/26/18 Stop Date: 06/29/18 Status: Discontinueddoxazosin 2 mg, 1 tab, Route: PO, Drug form: TAB, Bedtime, Dosing Weight 82.273, kg, Start date: 06/26/18 21:00:00 CDT, Duration: 30 day, Stop date: 07/25/18 21:00: 00 CDT Notes: (Same as: Benji) Start Date: 06/26/18 Stop Date: 06/29/18 Status: Discontinueddoxazosin 2 mg oral tablet 2 mg=1 tab, PO, Bedtime, 0 Refill(s) Start Date: 06/26/18 Status: Orderedfamotidine 20 mg, 1 tab, Route: PO, Drug form: TAB, Q12H, Dosing Weight 82.273, kg, Start date: 06/27/18 9:00:00 CDT, Duration: 30 day, Stop date: 07/26/18 21:00:00 CDT Notes: (Same as: Pepcid) Start Date: 06/27/18 Stop Date: 06/28/18 Status: Discontinuedfamotidine 20 mg, 2 mL, Route: IVP, Drug form: INJ, Daily, Dosing Weight 82.273, kg, Start date: 06/26/18 9:00:00 CDT, Duration: 30 day, Stop date: 07/25/18 9:00:00 CDT Notes: (Same as: Pepcid)Can be dilute in 5-10cc NS IVP: Slow IV push over at least 2 minutes. Start Date: 06/26/18 Stop Date: 06/27/18 Status: DiscontinuedfentaNYL (ANES) Route: IV, Drug form: INJ, ONCE, Stop date: 06/28/18 9:52:00 CDT Start Date: 06/28/18 Stop Date: 06/28/18 Status: CompletedFish Oil 1200 mg oral capsule 1,200 mg=1 cap, PO, TID, 0 Refill(s) Start Date: 06/26/18 Status: Orderedfolic acid 1 mg, 1 tab, Route: PO, Drug form: TAB, Daily, Dosing Weight 82.273, kg, Start date: 06/27/18 9:00:00 CDT, Duration: 30 day, Stop date: 07/26/18 9:00:00 CDT Notes: (Same as: Folvite) Start Date: 06/27/18 Stop Date: 06/29/18 Status: Discontinuedfolic acid 0.4 mg oral tablet 0.4 mg=1 tab, PO, Daily, # 100 tab, 0 Refill(s) Start Date: 06/26/18 Status: Orderedheparin 5,000 unit, 1 mL, Route: SUB-Q, Drug form: INJ, Q8H, Dosing Weight 82.273, kg, Start date: 06/27/18 16:00:00 CDT, Duration: 30 day, Stop date: 07/27/18 8:00: 00 CDT Notes: porcine heparin Start Date: 06/27/18 Stop Date: 06/29/18 Status: Discontinuedheparin (ANES) Route: IV, Drug form: INJ, ONCE, Stop date: 06/28/18 9:42:00 CDT Start Date: 06/28/18 Stop Date: 06/28/18 Status: Completedhydrocortisone 200 mg, 4 mL, Route: IV, Drug form: PDR/INJ, ONCE, Dosing Weight 82.273, kg, Priority: NOW, Start date: 06/27/18 7:19:00 CDT, Stop date: 06/27/18 7:19:00 CDT Notes: (Same as: Solu-CORTEF) Start Date: 06/27/18 Stop Date: 06/27/18 Status: CompletedInsulin regular 10 unit, 0.1 mL, Route: SUB-Q, Drug form: SOLN, Sliding Scale, Dosing Weight 82.273, kg, PRN Blood Glucose Results, Start date: 06/25/18 23:56:00 CDT, Duration: 30 day, Stop date: 07/25/18 23:55:00 CDT Notes: (Same as: Humulin R) Roll in palms of hands gently; Do not shake vigorously. "single patientuse only"(Restricted to patients requiring a dose &gt ; 60 units)WASTE: F/P - Black; E - Municipal Trash Bin Stable for 28 days at room temperatureExpires in days from Date Start Date: 06/25/18 Stop Date: 06/29/18 Status: DiscontinuedInsulin regular 8 unit, 0.08 mL, Route: SUB-Q, Drug form: SOLN, Sliding Scale, Dosing Weight 82.273, kg, PRN Blood Glucose Results, Start date: 06/25/18 23:56:00 CDT, Duration: 30 day, Stop date: 07/25/18 23:55:00 CDT Notes: (Same as: Humulin R) Roll in palms of hands gently; Do not shake vigorously. "single patientuse only"(Restricted to patients requiring a dose &gt ; 60 units)WASTE: F/P - Black; E - Municipal Trash Bin Stable for 28 days at room temperatureExpires in days from Date Start Date: 06/25/18 Stop Date: 06/29/18 Status: DiscontinuedInsulin regular 6 unit, 0.06 mL, Route: SUB-Q, Drug form: SOLN, Sliding Scale, Dosing Weight 82.273, kg, PRN Blood Glucose Results, Start date: 06/25/18 23:56:00 CDT, Duration: 30 day, Stop date: 07/25/18 23:55:00 CDT Notes: (Same as: Humulin R) Roll in palms of hands gently; Do not shake vigorously. "single patientuse only"(Restricted to patients requiring a dose &gt ; 60 units)WASTE: F/P - Black; E - Municipal Trash Bin Stable for 28 days at room temperatureExpires in days from Date Start Date: 06/25/18 Stop Date: 06/29/18 Status: DiscontinuedInsulin regular 2 unit, 0.02 mL, Route: SUB-Q, Drug form: SOLN, Sliding Scale, Dosing Weight 82.273, kg, PRN Blood Glucose Results, Start date: 06/25/18 23:56:00 CDT, Duration: 30 day, Stop date: 07/25/18 23:55:00 CDT Notes: (Same as: Humulin R) Roll in palms of hands gently; Do not shake vigorously. "single patientuse only"(Restricted to patients requiring a dose &gt ; 60 units)WASTE: F/P - Black; E - Municipal Trash Bin Stable for 28 days at room temperatureExpires in days from Date Start Date: 06/25/18 Stop Date: 06/29/18 Status: DiscontinuedInsulin regular 4 unit, 0.04 mL, Route: SUB-Q, Drug form: SOLN, Sliding Scale, Dosing Weight 82.273, kg, PRN Blood Glucose Results, Start date: 06/25/18 23:56:00 CDT, Duration: 30 day, Stop date: 07/25/18 23:55:00 CDT Notes: (Same as: Humulin R) Roll in palms of hands gently; Do not shake vigorously. "single patientuse only"(Restricted to patients requiring a dose &gt ; 60 units)WASTE: F/P - Black; E - Municipal Trash Bin Stable for 28 days at room temperatureExpires in days from Date Start Date: 06/25/18 Stop Date: 06/29/18 Status: DiscontinuedKeppra 1,000 mg, Route: IV, ONCE, Dosing Weight 82.273, kg, Start date: 06/25/18 19:43: 00 CDT, Stop date: 06/25/18 19:43:00 CDT Start Date: 06/25/18 Stop Date: 06/25/18 Status: CompletedKeppra 500 mg oral tablet 500 mg, 1 tab, Route: PO, Drug form: TAB, Q12H, Dosing Weight 82.273, kg, Start date: 06/27/18 21:00:00 CDT, Duration: 30 day, Stop date: 07/27/18 15:00:00 CDT Notes: (Same as:Keppra) Start Date: 06/27/18 Stop Date: 06/29/18 Status: DiscontinuedKeppra 500 mg oral tablet 500 mg=1 tab, PO, Q12H, # 8 tab, 0 Refill(s) Start Date: 06/29/18 Stop Date: 07/03/18 Status: Orderedlabetalol 10 mg, 2 mL, Route: IVP, Drug form: INJ, Q15Min, Dosing Weight 82.273, kg, PRN Hypertension, Start date: 06/25/18 23:56:00 CDT, Duration: 3 doses or times, Stop date: Limited # of times Start Date: 06/25/18 Stop Date: 06/29/18 Status: DiscontinuedlevETIRAcetam + Sodium Chloride 0.9% IV 100 mL 500 mg, Route: IVPB, Q12H, Dosing Weight 82.273, kg, Start date: 06/26/18 9:00: 00 CDT, Duration: 30 day, Stop date: 07/25/18 21:00:00 CDT Notes: Same as KeppraMix with 100 mL NS, LR or D5W MEDICATION WASTE Product Size: 500 mgProduct Wasted: ___ mg Start Date: 06/26/18 Stop Date: 06/27/18 Status: DiscontinuedLopressor 50 mg, 1 tab, Route: PO, Drug form: ERTAB, Q12H, Dosing Weight 82.273, kg, Start date: 06/26/18 21:00:00 CDT, Duration: 30 day, Stop date: 07/26/18 15:00: 00 CDT Notes: (Same as: Toprol XL) May split tab, but do not crush. Start Date: 06/26/18 Stop Date: 06/29/18 Status: DiscontinuedLopressor 50 mg, 1 tab, Route: PO, Drug form: TAB, Q12H, Dosing Weight 82.273, kg, Start date: 06/26/18 21:00:00 CDT, Duration: 30 day, Stop date: 07/26/18 9:00:00 CDT Notes: (Same as: Lopressor) Start Date: 06/26/18 Stop Date: 06/26/18 Status: Discontinuedloratadine 10 mg, 1 tab, Route: PO, Drug form: TAB, Daily, Dosing Weight 82.273, kg, Start date: 06/27/18 11:24:00 CDT, Duration: 30 day, Stop date: 07/27/18 9:00:00 CDT Notes: 1 hr before meals (Same as: Claritin)Non-formulary item Start Date: 06/27/18 Stop Date: 06/28/18 Status: Discontinuedloratadine 10 mg, 1 tab, Route: PO, Drug form: TAB, Daily, Dosing Weight 82.273, kg, Start date: 06/27/18 9:00:00 CDT, Duration: 30 day, Stop date: 07/26/18 9:00:00 CDT Notes: 1 hr before meals (Same as: Claritin)Non-formulary item Start Date: 06/27/18 Stop Date: 06/27/18 Status: Discontinuedmagnesium oxide 800 mg, 2 tab, Route: PO, Drug form: TAB, PRN, Dosing Weight 82.273, kg, PRN Abnormal Lab Result, For NON-ICU Patients Only., Start date: 06/29/18 4:21:00 CDT, Duration: 30 day, Stop date: 07/29/18 4:20:00 CDT Notes: (Same as: Mag-Ox 400)Magnesium oxide [id number] elemental magnesiumDose= ____mg magnesium oxide (___mg elemental magnesium) Start Date: 06/29/18 Stop Date: 06/29/18 Status: Discontinuedmagnesium sulfate 2 gm, 50 mL, Route: IVPB, Drug form: INJ, PRN, Dosing Weight 82.273, kg, PRN Abnormal Lab Result, For NON-ICU Patients Only., Start date: 06/29/18 4:21:00 CDT, Duration: 30 day, Stop date: 07/29/18 4:20:00 CDT Notes: WASTE: F/P - Sink; E - Municipal Trash Bin Start Date: 06/29/18 Stop Date: 06/29/18 Status: Discontinuedmagnesium sulfate 1 gm, 100 mL, Route: IVPB, Drug form: INJ, PRN, Dosing Weight 82.273, kg, PRN Abnormal Lab Result, For NON-ICU Patients Only., Start date: 06/29/18 4:21:00 CDT, Duration: 30 day, Stop date: 07/29/18 4:20:00 CDT Notes: WASTE: F/P - Sink; E - Municipal Trash Bin Start Date: 06/29/18 Stop Date: 06/29/18 Status: DiscontinuedMetamucil 3.4 gm, 1 pkt, Route: PO, Drug Form: PDR/REC, Dosing Weight 82.273, kg, TID, Start date: 06/27/18 9:00:00 CDT, Duration: 30 day, Stop date: 07/26/18 17:00: 00 CDT Notes: (Same as: Metamucil) Mix in 8 oz liquid with meal. Start Date: 06/27/18 Stop Date: 06/29/18 Status: DiscontinuedmethylPREDNISolone SODium SUCCinate 125 mg, 2 mL, Route: IVP, Drug form: INJ, Q8H, Dosing Weight 82.273, kg, Priority: NOW, Start date: 06/27/18 7:14:00 CDT, Duration: 1 day, Stop date: 0:00:00 CDT Notes: (Same as:Solu-MEDROL, A-Methapred) Start Date: 06/27/18 Stop Date: 06/27/18 Status: DiscontinuedmethylPREDNISolone SODium SUCCinate 125 mg, Route: IVP, Drug form: INJ, Q8H, Dosing Weight 82.273, kg, Start date: 06/27/18 8:00:00 CDT,Duration: 24 hr, Stop date: 06/28/18 0:00:00 CDT Start Date: 06/27/18 Stop Date: 06/27/18 Status: Canceledmetoprolol 50 mg oral tablet, extended release 50 mg=1 tab, PO, BID, 0 Refill(s) Start Date: 06/26/18 Status: Orderedmorphine Sulfate 1 mg, 0.25 mL, Route: IVP, Drug form: SOLN, Q2H, Dosing Weight 82.273, kg, PRN Pain Score 7-10, Start date: 06/25/18 23:56:00 CDT, Duration: 30 day, Stop date : 07/25/18 23:55:00 CDT Notes: (Same as:MORPhine Sulfate) Start Date: 06/25/18 Stop Date: 06/29/18 Status: Discontinuedmultivitamin 1 tab, Route: PO, Drug Form: TAB, Dosing Weight 82.273, kg, Daily, Start date: 06/27/18 9:00:00 CDT,Duration: 30 day, Stop date: 07/26/18 9:00:00 CDT Notes: (Same as:Thera)WASTE: F/P - Black; E - Municipal Trash Bin Take with food. Start Date: 06/27/18 Stop Date: 06/29/18 Status: Discontinuedmycophenolate mofetil 250 mg, 1 cap, Route: PO, Drug form: CAP, [id number], Dosing Weight 82.273, kg, Start date: 06/26/18 12:30:00 CDT, Duration: 30 day, Stop date: 07/26/18 8:00: 00 CDT Notes: SEPARATE ANTACIDS from [employer] by 2 hrs.(Same As: CellCept) Start Date: 06/26/18 Stop Date: 06/29/18 Status: Discontinuedmycophenolate mofetil 250 mg oral capsule 250 mg=1 cap, PO, BID, 0 Refill(s) Start Date: 06/26/18 Status: OrderedniCARdipine (ANES) Route: IV, Drug form: INJ, ONCE, Stop date: 06/28/18 11:26:00 CDT Start Date: 06/28/18 Stop Date: 06/28/18 Status: Completednormal saline 0.9% IV 1,000 mL 1,000 mL, Rate: 75 ml/hr, Infuse over: 13.3 hr, Route: IV, Dosing Weight 82.273 kg, Total Volume: 1,000, Start date: 06/25/18 23:55:00 CDT, Duration: 30 day, Stop date: 07/25/18 23:54:00 CDT, 2.04, m2 Start Date: 06/25/18 Stop Date: 06/26/18 Status: Discontinuednormal saline 0.9% IV 1,000 mL 1,000 mL, Rate: 100 ml/hr, Infuse over: 10 hr, Route: IV, Dosing Weight 82.273 kg, Total Volume: 1,000, Start date: 06/26/18 19:27:00 CDT, Duration: 30 day, Stop date: 07/26/18 19:26:00 CDT, 2.04, m2 Start Date: 06/26/18 Stop Date: 06/29/18 Status: Discontinuedondansetron 4 mg, 2 mL, Route: IVP, Drug form: INJ, ONCE, Dosing Weight 82.273, kg, Priority : STAT, Start date: 06/25/18 20:35:00 CDT, Stop date: 06/25/18 20:35:00 CDT Notes: (Same as: Zogirma) MEDICATION WASTE Product Size: 4 mgProduct Wasted: ___ mg Start Date: 06/25/18 Stop Date: 06/25/18 Status: Completedondansetron 4 mg, 2 mL, Route: IVP, Drug form: INJ, Q8H, Dosing Weight 82.273, kg, PRN Nausea & Vomiting, Start date: 06/25/18 23:56:00 CDT, Duration: 30 day, Stop date: 07/25/18 23:55:00 CDT Notes: (Same as: Rubén) MEDICATION WASTE Product Size: 4 mgProduct Wasted: ___ mg Start Date: 06/25/18 Stop Date: 06/29/18 Status: Discontinuedondansetron (ANES) Route: IV, Drug form: INJ, ONCE, Stop date: 06/28/18 11:17:00 CDT Start Date: 06/28/18 Stop Date: 06/28/18 Status: Completedpantoprazole 40 mg, 1 tab, Route: PO, Drug form: ECTAB, Daily, Dosing Weight 82.273, kg, Start date: 06/26/18 9:00:00 CDT, Duration: 30 day, Stop date: 07/25/18 9:00:00 CDT Notes: Tablet should not be chewed or crushed.(Same as: Protonix) Start Date: 06/26/18 Stop Date: 06/27/18 Status: Discontinuedphenylephrine (ANES) Route: IV, Drug form: INJ, ONCE, Stop date: 06/28/18 10:42:00 CDT Start Date: 06/28/18 Stop Date: 06/28/18 Status: Completedpotassium chloride 20 mEq, 1 tab, Route: PO, Drug form: ERTAB, PRN, Dosing Weight 82.273, kg, PRN Abnormal Lab Result, For NON-ICU Patients Only, Start date: 06/29/18 4:21:00 CDT , Duration: 30 day, Stop date: 07/29/18 4:20:00 CDT Notes: (Same as: K-Dur 20)"Do Not Crush" Give with food and full glass of waterFor patients unable to swallow tablet, dissolve in one half glass of water. Allow about 2 minutes for the tablets to disintegrate. Stir before giving to prepare slurry and administer.Please exclude Patients with feedingtube less than 14 Belgian (Dobhoff, J-tube etc) and pediatric and patients. Start Date: 06/29/18 Stop Date: 06/29/18 Status: Discontinuedpotassium chloride 20 mEq, 15 mL, Route: NJ, Drug form: LIQ, PRN, Dosing Weight 82.273, kg, PRN Abnormal Lab Result, For NON-ICU Patients Only, Start date: 06/29/18 4:21:00 CDT , Duration: 30 day, Stop date: 07/29/18 4:20:00 CDT Notes: (Same as: Potassium Chloride) Start Date: 06/29/18 Stop Date: 06/29/18 Status: Discontinuedpotassium chloride 10 mEq, 50 mL, Route: IVPB, Drug form: INJ, PRN, Dosing Weight 82.273, kg, PRN Abnormal Lab Result, For NON-ICU Patients Only, Start date: 06/29/18 4:21:00 CDT , Duration: 30 day, Stop date: 07/29/18 4:20:00 CDT Notes: (Same as: KCL) Infuse over 2 hours. Start Date: 06/29/18 Stop Date: 06/29/18 Status: Discontinuedpotassium phosphate + Sodium Chloride 0.9% IV 250 mL 30 mmol, 10 mL, Route: IVPB, PRN, Dosing Weight 82.273, kg, PRN Abnormal Lab Result, For NON-ICU Patients Only., Start date: 06/29/18 4:21:00 CDT, Duration: 30 day, Stop date: 07/29/18 4:20:00 CDT Notes: (Same as: K Phosphate.)Do not infuse phosphorous concurrently in the same line as TPN or IVF that contains calcium. For double lumen central lines, phosphorous may be infused in a separate lumenfrom TPN. 1 mMol phoshate has 1.47 mEq potassium Infuse over 4 hours Start Date: 06/29/18 Stop Date: 06/29/18 Status: Discontinuedpotassium phosphate + Sodium Chloride 0.9% IV 250 mL 15 mmol, 5 mL, Route: IVPB, PRN, Dosing Weight 82.273, kg, PRN Abnormal Lab Result, For NON-ICU Patients Only., Start date: 06/29/18 4:21:00 CDT, Duration: 30 day, Stop date: 07/29/18 4:20:00 CDT Notes: (Same as: K Phosphate.)Do not infuse phosphorous concurrently in the same line as TPN or IVF that contains calcium. For double lumen central lines, phosphorous may be infused in a separate lumenfrom TPN. 1 mMol phoshate has 1.47 mEq potassium Infuse over 4 hours Start Date: 06/29/18 Stop Date: 06/29/18 Status: Discontinuedpotassium phosphate-sodium phosphate 250 mg-280 mg-160 mg oral powder for reconstitution 2 pkt, Route: PO, Drug Form: PDR/REC, Dosing Weight 82.273, kg, PRN, PRN Abnormal Lab Result, For NON-ICU Patients Only, Start date: 06/29/18 4:21:00 CDT , Duration: 30 day, Stop date: 07/29/18 4:20:00 CDT Notes: (Same as: Phos-NaK) Each 1.5 gm pkt has 250mg phosphorous. Mix w/2.5oz water and stir. Start Date: 06/29/18 Stop Date: 06/29/18 Status: DiscontinuedPreserVision AREDS 2 PO, Daily, 0 Refill(s) Start Date: 06/26/18 Status: Orderedpropofol (ANES) Route: IV, Drug form: INJ, ONCE, Stop date: 06/28/18 9:52:00 CDT Start Date: 06/28/18 Stop Date: 06/28/18 Status: Completedprotamine (ANES) Route: IV, Drug form: INJ, ONCE, Stop date: 06/28/18 11:12:00 CDT Start Date: 06/28/18 Stop Date: 06/28/18 Status: Completedrocuronium (ANES) Route: IV, Drug form: INJ, ONCE, Stop date: 06/28/18 9:52:00 CDT Start Date: 06/28/18 Stop Date: 06/28/18 Status: CompletedSaline Flush 0.9% 10 ml, Route: IVP, Drug Form: INJ, Dosing Weight 82.273, kg, Q12H, Start date: 06/26/18 9:00:00 CDT,Duration: 30 day, Stop date: 07/25/18 21:00:00 CDT Notes: (Same as: BD Posiflush) Start Date: 06/26/18 Stop Date: 06/29/18 Status: DiscontinuedSaline Flush 0.9% 10 ml, Route: IVP, Drug Form: INJ, Dosing Weight 82.273, kg, PRN, PRN Line Flush , Start date: 06/25/18 23:56:00 CDT, Duration: 30 day, Stop date: 07/25/18 23:55 :00 CDT Notes: (Same as: BD Posiflush) Start Date: 06/25/18 Stop Date: 06/29/18 Status: Discontinuedsenna 8.6 mg, 1 tab, Route: PO, Drug Form: TAB, Dosing Weight 82.273, kg, Q12H, Start date: 06/26/18 9:00:00 CDT, Duration: 30 day, Stop date: 07/25/18 21:00:00 CDT Notes: (Same as: Senokot) Start Date: 06/26/18 Stop Date: 06/29/18 Status: Discontinuedsirolimus 1 mg, 1 tab, Route: PO, Drug form: TAB, QAM, Dosing Weight 82.273, kg, Start date: 06/26/18 12:30:00CDT, Duration: 30 day, Stop date: 07/26/18 8:00:00 CDT Notes: (Same as: Rapamune) Start Date: 06/26/18 Stop Date: 06/29/18 Status: Discontinuedsirolimus 2 mg, 2 tab, Route: PO, Drug form: TAB, QAM, Dosing Weight 82.273, kg, Start date: 06/26/18 12:30:00CDT, Duration: 30 day, Stop date: 07/26/18 8:00:00 CDT Notes: (Same as: Rapamune) Start Date: 06/26/18 Stop Date: 06/26/18 Status: Discontinuedsirolimus 1 mg oral tablet 1 mg=1 tab, PO, QAM, 0 Refill(s) Start Date: 06/26/18 Status: Orderedsirolimus 1 mg oral tablet 2 mg=2 tab, PO, Daily, 0 Refill(s) Start Date: 06/26/18 Stop Date: 06/26/18 Status: DiscontinuedSodium Chloride 0.9% IV (ANES) 1000 mL Route: IV, Total Volume: 1,000, Start date: 06/28/18 8:30:00 CDT, Stop date: 9:30:00 CDT Start Date: 06/28/18 Stop Date: 06/28/18 Status: Completedsodium phosphate + Sodium Chloride 0.9% IV 250 mL 15 mmol, 5 mL, Route: IVPB, PRN, Dosing Weight 82.273, kg, PRN Abnormal Lab Result, For NON-ICU Patients Only., Start date: 06/29/18 4:21:00 CDT, Duration: 30 day, Stop date: 07/29/18 4:20:00 CDT Notes: Infuse over 4 hour. Do not infuse phosphorous concurrently in the same line as TPN or IVF that contains calcium. For double lumen central lines, phosphorous may be infused in a separate lumen from TPN. Start Date: 06/29/18 Stop Date: 06/29/18 Status: Discontinuedsodium phosphate + Sodium Chloride 0.9% IV 250 mL 30 mmol, 10 mL, Route: IVPB, PRN, Dosing Weight 82.273, kg, PRN Abnormal Lab Result, For NON-ICU Patients Only., Start date: 06/29/18 4:21:00 CDT, Duration: 30 day, Stop date: 07/29/18 4:20:00 CDT Notes: Infuse over 4 hour. Do not infuse phosphorous concurrently in the same line as TPN or IVF that contains calcium. For double lumen central lines, phosphorous may be infused in a separate lumen from TPN. Start Date: 06/29/18 Stop Date: 06/29/18 Status: Discontinuedsugammadex 500 mg, 5 mL, Route: IV, Drug form: PAUL HERNÁNDEZ, Priority: NOW, Start date: 14:16:00 CDT, Duration: 1 doses or times, Stop date: 06/28/18 14:21:00 CDT Notes: (Same as: Bridion) Start Date: 06/28/18 Stop Date: 06/29/18 Status: Discontinuedsugammadex (ANES) Route: IV, Drug form: SOLN, ONCE, Stop date: 06/28/18 11:26:00 CDT Start Date: 06/28/18 Stop Date: 06/28/18 Status: Completedthiamine 100 mg, 1 tab, Route: PO, Drug form: TAB, Daily, Dosing Weight 82.273, kg, Start date: 06/27/18 9:00:00 CDT, Duration: 30 day, Stop date: 07/26/18 9:00:00 CDT Notes: (Same As: Vitamin B1) Start Date: 06/27/18 Stop Date: 06/29/18 Status: DiscontinuedTylenol 650 mg, 2 tab, Route: PO, Drug form: TAB, Q6H, Dosing Weight 82.273, kg, PRN Pain Score 1-3, Start date: 06/26/18 8:19:00 CDT, Duration: 30 day, Stop date: 07/26/18 8:18:00 CDT Notes: Do not exceed 4 gm/day. (Same as: Tylenol) Start Date: 06/26/18 Stop Date: 06/29/18 Status: DiscontinuedVisipaque 320mg/ml 150 mL, Route: INTRAARTERIAL, Dosing Weight 82.273, kg, ONCE, Start date: 9:18:00 CDT, Stopdate: 06/28/18 9:18:00 CDT Start Date: 06/28/18 Stop Date: 06/28/18 Status: CompletedVitamin D3 5000 intl units oral capsule 5,000 IntlUnit=1 cap, PO, Daily, # 30 cap, 1 Refill(s) Start Date: 06/26/18 Status: Ordered Results BLOOD BANK RESULTS Most recent to oldest [Reference Range]: 1 2 3 ABO/Rh O POS O POS *Unknown* *Unknown* (06/28/18 3:46 AM) (06/25/18 7:59 PM) Antibody Scrn Negative Negative (06/28/18 3:46 AM) (06/25/18 7:59 PM) ELECTROLYTES Most recent to oldest 1 2 3 [Reference Range]: Sodium Lvl [135-145 mEq/L] 146 mEq/L 144 mEq/L 144 mEq/L *HI* (06/28/18 3:46 AM) (06/27/18 12:21 AM) (06/29/18 9:23 AM) Potassium Lvl [3.5-5.1 3.5 mEq/L 4.0 mEq/L 4.0 mEq/L mEq/L] (06/29/18 9:23 AM) (06/28/18 3:46 AM) (06/27/18 12:21 AM) Chloride Lvl [95-109 mEq/L] 118 mEq/L 114 mEq/L 113 mEq/L *HI* *HI* *HI* (06/29/18 9:23 AM) (06/28/18 3:46 AM) (06/27/18 12:21 AM) CO2 [24-32 mEq/L] 19 mEq/L 21 mEq/L 24 mEq/L *LOW* *LOW* (06/27/18 12:21 AM) (06/29/18 9:23 AM) (06/28/18 3:46 AM) AGAP [10.0-20.0 mEq/L] 12.5 mEq/L 13.0 mEq/L 11.0 mEq/L (06/29/18 9:23 AM) (06/28/18 3:46 AM) (06/27/18 12:21 AM) CHEM PANEL Most recent to oldest 1 2 3 [Reference Range]: Creatinine Lvl [0.50-1.40 1.79 mg/dL 1.76 mg/dL 1.85 mg/dL mg/dL] *HI* *HI* *HI* (06/29/18 9:23 AM) (06/28/18 3:46 AM) (06/27/18 12:21 AM) eGFR 36 mL/min/1.73m2 1 37 mL/min/1.73m2 2 35 mL/min/1.73m2 3 *NA* *NA* *NA* (06/29/18 9:23 AM) (06/28/18 3:46 AM) (06/27/18 12:21 AM) BUN [7-22 mg/dL] 26 mg/dL 26 mg/dL 25 mg/dL *HI* *HI* *HI* (06/29/18 9:23 AM) (06/28/18 3:46 AM) (06/27/18 12:21 AM) B/C Ratio [6-25] 15 (06/26/18 8:36 AM) Glucose Lvl [70-99 mg/dL] 106 mg/dL 119 mg/dL 88 mg/dL *HI* *HI* (06/27/18 12:21 AM) (06/29/18 9:23 AM) (06/28/18 3:46 AM) Total Protein [6.4-8.4 6.0 g/dL g/dL] *LOW* (06/26/18 8:36 AM) Albumin Lvl [3.5-5.0 g/dL] 2.6 g/dL *LOW* (06/26/18 8:36 AM) Globulin [2.7-4.2 g/dL] 3.4 g/dL (06/26/18 8:36 AM) A/G Ratio [0.7-1.6] 0.8 (06/26/18 8:36 AM) Calcium Lvl [8.5-10.5 7.8 mg/dL 8.4 mg/dL 8.7 mg/dL mg/dL] *LOW* *LOW* (06/27/18 12:21 AM) (06/29/18 9:23 AM) (06/28/18 3:46 AM) Phosphorus [2.5-4.5 mg/dL] 1.9 mg/dL 1.9 mg/dL 3.3 mg/dL *LOW* *LOW* (06/27/18 12:21 AM) (06/29/18 12:21 AM) (06/28/18 3:46 AM) Magnesium Lvl [1.8-2.4 1.4 mg/dL 1.9 mg/dL 2.0 mg/dL mg/dL] *LOW* (06/28/18 3:46 AM) (06/27/18 12:21 AM) (06/29/18 12:21 AM) ALT [0-65 unit/L] 16 unit/L (06/26/18 8:36 AM) AST [0-37 unit/L] 13 unit/L (06/26/18 8:36 AM) Alk Phos [39-136 unit/L] 80 unit/L (06/26/18 8:36 AM) Bili Total [0.2-1.3 mg/dL] 0.7 mg/dL (06/26/18 8:36 AM) Lactic Acid Lvl [0.5-2.2 1.2 mMol/L mMol/L] (06/25/18 7:59 PM) 1Result Comment: The eGFR is calculated using the CKD-EPI formula. In most young , healthy individualsthe eGFR will be >90 mL/min/1.73m2. The eGFR declines with age. An eGFR of 60-89 may be normal insome populations, particularly the elderly, for whom the CKD-EPI formula has not been extensively validated. Use of the eGFR is not recommended in the following populations: Individuals with unstable creatinine concentrations, including patients and those with serious co-morbid conditions. Patients with extremes in muscle mass or diet. The data above are obtained from the National Kidney Disease Education Program ( NKDEP) which additionally recommends that when the eGFR is used in patients with extremes of body mass index for purposesof drug dosing, the eGFR should be multiplied by the estimated BMI.2Result Comment: The eGFR is calculated using the CKD-EPI formula. In most young, healthy individualsthe eGFR will be >90 mL/min/1.73m2. The eGFR declines with age. An eGFR of 60-89 may be normal insome populations, particularly the elderly, for whom the CKD-EPI formula has not been extensively validated. Use of the eGFR is not recommended in the following populations: Individuals with unstable creatinine concentrations, including patients and those with serious co-morbid conditions. Patients with extremes in muscle mass or diet. The data above are obtained from the National Kidney Disease Education Program ( NKDEP) which additionally recommends that when the eGFR is used in patients with extremes of body mass index for purposesof drug dosing, the eGFR should be multiplied by the estimated BMI.3Result Comment: The eGFR is calculated using the CKD-EPI formula. In most young, healthy individualsthe eGFR will be >90 mL/min/1.73m2. The eGFR declines with age. An eGFR of 60-89 may be normal insome populations, particularly the elderly, for whom the CKD-EPI formula has not been extensively validated. Use of the eGFR is not recommended in the following populations: Individuals with unstable creatinine concentrations, including patients and those with serious co-morbid conditions. Patients with extremes in muscle mass or diet. The data above are obtained from the National Kidney Disease Education Program ( NKDEP) which additionally recommends that when the eGFR is used in patients with extremes of body mass index for purposesof drug dosing, the eGFR should be multiplied by the estimated BMI.CARDIAC ENZYMES Most recent to oldest [Reference Range]: 1 2 3 Troponin-I [0.00-0.40 ng/mL] <0.02 ng/mL (06/25/18 7:59 PM) PARATHYROID PROFILE Most recent to oldest 1 2 3 [Reference Range]: Ca Ion WB [1.05-1.25 mMol/L] 1.09 mMol/L 1.15 mMol/L 1.15 mMol/L (06/29/18 12:21 AM) (06/28/18 3:46 AM) (06/27/18 12:21 AM) Ca Norm WB [1.05-1.25 1.08 mMol/L 1.13 mMol/L 1.12 mMol/L mMol/L] (06/29/18 12:21 AM) (06/28/18 3:46 AM) (06/27/18 12:21 AM) DRUG SCREEN Most recent to oldest [Reference Range]: 1 2 3 U Amph Scr [Negative] Negative *NA* (06/28/18 8:58 PM) U Agnes Scr [Negative] Negative *NA* (06/28/18 8:58 PM) U Benzodiaz Scr [Negative] Negative *NA* (06/28/18 8:58 PM) U Cannab Scr [Negative] Negative *NA* (06/28/18 8:58 PM) U Cocaine Scr [Negative] Negative *NA* (06/28/18 8:58 PM) U Opiate Scr [Negative] Negative *NA* (06/28/18 8:58 PM) U Phencyclidine Scr [Negative] Negative *NA* (06/28/18 8:58 PM) UDS Note See Note *NA* (06/28/18 8:58 PM) TOXICOLOGY Most recent to oldest [Reference Range]: 1 2 3 Rapamycin Lvl [5.0-15.0 ng/mL] 3.9 ng/mL *LOW* (06/26/18 8:36 AM) URINE AND STOOL Most recent to oldest [Reference Range]: 1 2 3 UA Turbidity [Clear] Marked *ABN* (06/28/18 8:58 PM) UA Color [Yellow] Yellow *NA* (06/28/18 8:58 PM) UA pH [5.0-8.0] 5.0 (06/28/18 8:58 PM) UA Spec Grav [<=1.030] 1.030 (06/28/18 8:58 PM) UA Glucose [Negative] Negative *NA* (06/28/18 8:58 PM) UA Blood [Negative] Small *ABN* (06/28/18 8:58 PM) UA Ketones [Negative] Negative *NA* (06/28/18 8:58 PM) UA Protein [Negative mg/dL] 100 mg/dL *ABN* (06/28/18 8:58 PM) UA Urobilinogen [0.1-1.0 mg/dL] <1.0 mg/dL (06/28/18 8:58 PM) UA Bili [Negative] Negative *NA* (06/28/18 8:58 PM) UA Leuk Est [Negative] Moderate *ABN* (06/28/18 8:58 PM) UA Nitrite [Negative] Negative (06/28/18 8:58 PM) UA WBC [0-5 /HPF] 1 /HPF *NA* (06/28/18 8:58 PM) UA RBC [0-2 /HPF] <1 /HPF *NA* (06/28/18 8:58 PM) UA Sq Epi [Few] None Seen (06/28/18 8:58 PM) HEMATOLOGY Most recent to 1 2 3 oldest [Reference Range]: WBC [3.7-10.4 K/CMM] 7.4 K/CMM 8.2 K/CMM 6.3 K/CMM (06/29/18 12:21 AM) (06/28/18 3:46 AM) (06/27/18 12:21 AM) RBC [4.70-6.10 3.96 M/CMM 4.18 M/CMM 4.39 M/CMM M/CMM] *LOW* *LOW* *LOW* (06/29/18 12:21 AM) (06/28/18 3:46 AM) (06/27/18 12:21 AM) Hgb [14.0-18.0 g/dL] 12.0 g/dL 12.7 g/dL 13.3 g/dL *LOW* *LOW* *LOW* (06/29/18 12:21 AM) (06/28/18 3:46 AM) (06/27/18 12:21 AM) Hct [42.0-54.0 %] 35.9 % 37.7 % 39.6 % *LOW* *LOW* *LOW* (06/29/18 12:21 AM) (06/28/18 3:46 AM) (06/27/18 12:21 AM) MCV [80.0-94.0 fL] 90.7 fL 90.1 fL 90.2 fL (06/29/18 12:21 AM) (06/28/18 3:46 AM) (06/27/18 12:21 AM) MCH [27.0-31.0 pg] 30.3 pg 30.3 pg 30.3 pg (06/29/18 12:21 AM) (06/28/18 3:46 AM) (06/27/18 12:21 AM) MCHC [32.0-36.0 33.4 g/dL 33.7 g/dL 33.5 g/dL g/dL] (06/29/18 12:21 AM) (06/28/18 3:46 AM) (06/27/18 12:21 AM) RDW [11.5-14.5 %] 16.3 % 16.1 % 16.1 % *HI* *HI* *HI* (06/29/18 12:21 AM) (06/28/18 3:46 AM) (06/27/18 12:21 AM) MPV [7.4-10.4 fL] 7.8 fL 8.6 fL 7.7 fL (06/29/18 12:21 AM) (06/28/18 3:46 AM) (06/27/18 12:21 AM) Platelet [133-450 179 K/CMM 203 K/CMM 190 K/CMM K/CMM] (06/29/18 12:21 AM) (06/28/18 3:46 AM) (06/27/18 12:21 AM) Segs [45.0-75.0 %] 89.4 % 87.9 % 64.6 % *HI* *HI* (06/27/18:21 AM) (06/29/18 12:21 AM) (06/28/18 3:46 AM) Lymphocytes 7.9 % 10.5 % 25.7 % [20.0-40.0 %] *LOW* *LOW* (06/27/18 12:21 AM) (06/29/18 12:21 AM) (06/28/18 3:46 AM) Monocytes [2.0-12.0 2.6 % 0.9 % 6.8 % %] (06/29/18 12:21 AM) *LOW* (06/27/18 12:21 AM) (06/28/18 3:46 AM) Eosinophils [0.0-4.0 0.1 % 2.0 % 0.2 % %] (06/28/18 3:46 AM) (06/27/18 12:21 AM) (06/25/18 7:59 PM) Basophils [0.0-1.0 0.1 % 0.6 % 0.9 % %] (06/29/18 12:21 AM) (06/28/18 3:46 AM) (06/27/18 12:21 AM) Neutrophils # 6.6 K/CMM 7.2 K/CMM 4.1 K/CMM [1.5-8.1 K/CMM] (06/29/18 12:21 AM) (06/28/18 3:46 AM) (06/27/18 12:21 AM) Lymphocytes # 0.6 K/CMM 0.9 K/CMM 1.6 K/CMM [1.0-5.5 K/CMM] *LOW* *LOW* (06/27/18 12:21 AM) (06/29/18 12:21 AM) (06/28/18 3:46 AM) Monocytes # [0.0-0.8 0.2 K/CMM 0.1 K/CMM 0.4 K/CMM K/CMM] (06/29/18 12:21 AM) (06/28/18 3:46 AM) (06/27/18 12:21 AM) Eosinophils # 0.1 K/CMM [0.0-0.5 K/CMM] (06/27/18 12:21 AM) Basophils # [0.0-0.2 0.1 K/CMM K/CMM] (06/27/18 12:21 AM) RBC Morph Normal Normal (06/28/18 3:46 AM) (06/27/18 12:21 AM) Plt Morph Normal Normal (06/28/18 3:46 AM) (06/27/18 12:21 AM) PT [12.0-14.7 13.7 seconds 13.5 seconds 13.0 seconds seconds] (06/28/18 3:46 AM) (06/27/18 12:21 AM) (06/25/18 7:59 PM) INR [0.85-1.17] 1.07 1.05 1.00 (06/28/18 3:46 AM) (06/27/18 12:21 AM) (06/25/18 7:59 PM) POC Activated 233 seconds 245 seconds 143 seconds Clotting Time *NA* *NA* *NA* (06/28/18 9:22 AM) (06/28/18 8:24 AM) (06/28/18 7:59 AM) PTT [22.9-35.8 27.4 seconds 33.5 seconds 37.2 seconds seconds] (06/28/18 3:46 AM) (06/27/18 12:21 AM) *HI* (06/25/18 7:59 PM) ACT (TEG) Rapid 89 seconds [86-118 seconds] (06/25/18 7:59 PM) Split Point Rapid 0.4 minutes *NA* (06/25/18 7:59 PM) R-time [5.0-10.0 2.6 minutes 3.2 minutes minutes] *LOW* *LOW* (06/28/18 3:46 AM) (06/27/18 12:21 AM) R-time Rapid 0.4 minutes [0.4-0.7 minutes] (06/25/18 7:59 PM) K-time [1.0-3.0 1.7 minutes 1.4 minutes minutes] (06/28/18 3:46 AM) (06/27/18 12:21 AM) K-time Rapid 0.8 minutes [0.6-2.3 minutes] (06/25/18 7:59 PM) Angle [53.0-72.0 68.4 degrees 70.7 degrees degrees] (06/28/18 3:46 AM) (06/27/18 12:21 AM) Angle Rapid [64-80 82 degrees degrees] *HI* (06/25/18 7:59 PM) Max Amp [50.0-70.0 66.3 mm 67.8 mm mm] (06/28/18 3:46 AM) (06/27/18 12:21 AM) Max Amplitude Rapid 76 mm [52-71 mm] *HI* (06/25/18 7:59 PM) G-value [4.5-11.0 K 9.8 K d/sc 10.5 K d/sc d/sc] (06/28/18 3:46 AM) (06/27/18 12:21 AM) G-value Rapid 15.7 K d/sc [5.0-11.6 K d/sc] *HI* (06/25/18 7:59 PM) Estimated % Lysis 0.0 % Rapid [0.0-7.5 %] (06/25/18 7:59 PM) Ly30 [0.0-7.5 %] 0.0 % 0.0 % (06/28/18 3:46 AM) (06/27/18 12:21 AM) Coag Index 3.2 3.2 [-3.0-3.0] *HI* *HI* (06/28/18 3:46 AM) (06/27/18 12:21 AM) TEG Interp Thrombelastograph results show shortened value of R. 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 Thrombelastograph results show shortened value of R. 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 Negative (06/26/18 5:59 AM) Immunizations No data available for this section Procedures Procedure Date Related Diagnosis Body Site Status Selective catheter placement, common 06/28/18 Completed carotid or innominate artery, unilateral, any approach, with angiography of the ipsilateral extracranial carotid circulation and all associated radiological supervision and interpretation, includes angiography of the c Selective catheter placement, external 06/28/18 Completed carotid artery, unilateral, with angiography of the ipsilateral external carotid circulation and all associated radiological supervision and interpretation (List separately in addition to code for primary procedure) Selective catheter placement, internal 06/28/18 Completed carotid artery, unilateral, with angiography of the ipsilateral intracranial carotid circulation and all associated radiological supervision and interpretation, includes angiography of the extracranial carotid and ce Social History Social History Type Response Smoking Status Never smoker; Previous treatment: None; Ready to change: No; Concerns about tobacco use in household: No; Exposure to Tobacco Smoke None; Cigarette Smoking Last 365 Days No; Reg Smoking Cessation Counseling No entered on: 06/26/18 Assessment and Plan No data available for this section
--- OUTSIDE RECORDS SUMMARY | 2018-10-07 18:23 | XMS REPORT | Summary of Care ---
:1940 Author Organization [facility] Neurosurgery [facility] [place] Address [address] [place] [address] [place] [id number]- Encounter HQ Encntr_alias(FIN) [id number] Date(s): 07/12/18 - 07/12/[address] [place] [phone] Discharge Disposition: Home or Self Care Attending Physician: Enrico Oropeza MD Referring Physician: Dc Paulino DO Vital Signs No data available for this [...]
--- OUTSIDE RECORDS SUMMARY | 2018-10-07 18:23 | XMS REPORT | Summary of Care ---
:1940 Author Organization [facility] Outpatient Imaging - [facility] Address [address] [place] [id number]- Encounter HQ Encntr_alias(FIN) [id number] Date(s): 07/12/18 - 07/12/18 [facility] Outpatient Imaging - [address] [place] [address]- Discharge Disposition: Home or Self Care Attending Physician: Enrico Oropeza MD Referring Physician: Enrico Oropeza MD Vital Signs No data available for this [...]
[2018-10-07] MEDS ORDERED: ONDANSETRON 4 MG/2 ML VIAL ONE (19:22)
[2018-10-07] MEDS ORDERED: NA CHLORIDE 0.9% 1,000 ML ONE (19:23)
[2018-10-07] MEDS ORDERED: FAMOTIDINE 20 MG/2 ML VIAL IV ONE (19:23)
[2018-10-07 19:26] LABS: Absolute Lymphocytes (CBC) 0.4 K/uL (0.7-4.9); Basophils % 0.5 % (0-1.3); Eosinophils % 0.8 % (0-4.4); Hematocrit 50.8 % (39.6-49.0); Lymphocytes % 11.1 % (15.3-44.8); Monocytes % 10.6 % (3.3-12.3); RBC Red Blood Cell Count 5.57 M/uL (4.33-5.43)
[2018-10-07 19:43] LABS: Albumin 3.6 g/dL (3.4-5.0); Bilirubin Direct 0.2 mg/dL (0-0.2); Bilirubin Total 0.5 mg/dL (0.2-1.0); Magnesium 2.2 mg/dL (1.8-2.4); Potassium 3.8 mmol/L (3.5-5.1)
[2018-10-07] MEDS ORDERED: NA CHLORIDE 0.9% 500 ML ONE (20:40)
--- NOTE | 2018-10-07 20:52 | RAD REPORT ---
EXAM DESCRIPTION: CT - Abdomen Pelvis Wo Contrast - 10/07/2018 8:45 pm CLINICAL HISTORY: Abdominal pain. N/V/D COMPARISON: Stone Protocol dated 07/04/2017 TECHNIQUE: CT imaging of the abdomen and pelvis was performed without contrast. Solid organ and vasc ular assessment is limited due to lack of IV contrast. All CT scans are performed using dose optimization technique as appropriate and may include automated exposure control or mA/KV adjustment according to patient size. FINDINGS: The lower lung venegas are clear.Trace right pleural fluid. Extensive postsurgical changes are present. Colectomy is noted with contrast in the small bowel.The l iver demonstrates no focal mass or biliary dilatation. The spleen, pancreas, right adrenal gland and right kidney are within normal limits. Atrophic left kidney is seen with 7 mm stone in the left renal pelvis. 20 mm left adrenal mass, nonspecific. No bowel obstruction, free air, free fluid or abscess. Postsurgical changes are present in the abdom en. Moderate lumbar degenerative changes.Mildly enlarged prostate which impresses upon the bladder base. IMPRESSION: Colectomy noted without bowel obstruction or free fluid. 7 mm stone left renal pelvis. Atrophic left kidney without hydronephrosis. A limited non-contrast examination was performed as detailed.
--- NOTE | 2018-10-07 21:19 | ER ---
Nurse's Notes [facility] Name: Yoni Shi Age: 77 yrs Sex: Male : 1940 Arrival Date: 10/07/2018 Time: 18:16 Bed 30 Private MD: Judah Rojas R Diagnosis: Nausea and vomiting;Diarrhea, unspecified;Dehydration Presentation: 10/07 18:21 Presenting complaint: Patient states: Diarrhea since yesterday, vomiting that started aj1 today. Patient reports that he is having some dizziness, and he feels like he is getting dehydrated. Transition of care: patient was not received from another setting of care. Onset of symptoms was October 06, 2018. Risk Assessment: Do you want to hurt yourself or someone else? Patient reports no desire to harm self or others. Initial Sepsis Screen: Does the patient meet any 2 criteria? No. Patient's initial sepsis screen is negative. Does the patient have a suspected source of infection? No. Patient's initial sepsis screen is negative. Care prior to arrival: None. 18:21 Method Of Arrival: Ambulatory aj1 18:21 Acuity: LIV 3 aj1 Triage Assessment: 18:27 General: Appears in no apparent distress. comfortable, Behavior is calm, cooperative, aj1 appropriate for age. Pain: Denies pain. Neuro: Level of Consciousness is awake, alert, obeys commands. Cardiovascular: Patient's skin is warm and dry. Respiratory: Airway is patent Respiratory effort is even, unlabored, Respiratory pattern is regular, symmetrical. GI: Reports diarrhea, nausea, vomiting. 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 - Social history:: Smoking status: Patient/guardian denies using tobacco. - Ebola Screening: : Patient denies travel to an Ebola-affected area in the 21 days before illness onset. Screenin:40 Abuse screen: Denies threats or abuse. Nutritional screening: No deficits noted. la1 Tuberculosis screening: No symptoms or risk factors identified. Fall Risk None identified. Assessment: 18:39 General: Appears in no apparent distress. Behavior is calm, cooperative. Pain: la1 Complains of pain in abdomen. Neuro: Level of Consciousness is awake, alert, obeys commands, Oriented to person, place, time, situation. Cardiovascular: Capillary refill < 3 seconds Patient's skin is warm and dry. Respiratory: Airway is patent Respiratory effort is even, unlabored, Respiratory pattern is regular, symmetrical. GI: Abdomen is round non-distended, Bowel sounds present X 4 quads. Abd is soft and non tender X 4 quads. Reports diarrhea, nausea, vomiting. : No signs and/or symptoms were reported regarding the genitourinary system. 19:50 Reassessment: Patient appears in no apparent distress at this time. No changes from la1 previously documented assessment. Patient and/or family updated on plan of care and expected duration. Pain level reassessed. 19:58 Reassessment: Patient appears in no apparent distress at this time. No changes from la1 previously documented assessment. Patient and/or family updated on plan of care and expected duration. Pain level reassessed. Patient is alert, oriented x 3, equal unlabored respirations, skin warm/dry/pink. 19:58 Reassessment: Paola at bedside is likely leaving, Mr. Shi states it is OK to call la1 her at [phone] and update her with his disposition when it is reached. 21:20 Reassessment: Patient appears in no apparent distress at this time. No changes from la1 previously documented assessment. Patient and/or family updated on plan of care and expected duration. Pain level reassessed. Patient is alert, oriented x 3, equal unlabored respirations, skin warm/dry/pink. Patient states feeling better. Patient states symptoms have improved. Vital Signs: 18:27 BP 142 / 98; Pulse 89; Resp 18; Temp 99.0; Pulse Ox 96% on R/A; aj1 19:58 BP 177 / 80; Pulse 88; Resp 16; Pulse Ox 98% on R/A; la1 21:21 BP 160 / 91; Pulse 70; Resp 16; Temp 98.4; Pulse Ox 98% on R/A; la1 ED Course: 18:16 Patient arrived in ED. as 18:17 Judah Rojas MD is Private Physician. as 18:23 Triage completed. aj1 18:27 Arm band placed on Patient placed in an exam room. aj1 18:38 Sahil Gamble PA is PHCP. cp 18:39 Ken Eason, MAYLIN is Primary Nurse. la1 18:40 Des Loza MD is Attending Physician. cp 18:40 Bed in low position. Call light in reach. Side rails up X 1. la1 19:30 Oral contrast reported to be complete. ka 19:50 No provider procedures requiring assistance completed. Inserted saline lock: 22 gauge la1 in left antecubital area, using aseptic technique. Blood collected. 20:52 Abdomen In Process Unspecified. EDMS 21:15 Judah Rojas MD is Referral Physician. cp 21:16 Referral Physician role handed off by Judah Rojas MD cp 21:16 Judah Rojas MD is Referral Physician. cp 21:40 IV discontinued, intact, bleeding controlled, No redness/swelling at site. Pressure la1 dressing applied. Administered Medications: 19:17 Drug: NS 0.9% 500 ml Route: IV; Rate: 100 ml/hr; Site: left antecubital; la1 19:48 Follow up: IV Status: Completed infusion la1 19:17 Drug: Pepcid 20 mg Route: IVP; Site: left antecubital; la1 19:48 Follow up: Response: No adverse reaction la1 19:17 Drug: Zofran 4 mg Route: IVP; Site: left antecubital; la1 19:48 Follow up: Response: No adverse reaction la1 19:48 Drug: NS 0.9% 500 ml Route: IV; Rate: 500 ml/hr; Site: left antecubital; la1 21:39 Follow up: IV Status: Completed infusion la1 21:39 Drug: Imodium A-D 2 mg Route: PO; la1 21:39 Follow up: Response: Medication administered at discharge. la1 Outcome: 21:18 Discharge ordered by . eva 21:40 Discharged to home ambulatory. la1 21:40 Condition: stable 21:40 Discharge instructions given to patient, Instructed on discharge instructions, follow up and referral plans. medication usage, Demonstrated understanding of instructions, follow-up care, medications, Prescriptions given X 2. 21:40 Patient left the ED. la1 Signatures: Dispatcher [employer] EDMS Soniya Alexander RN RN [email or web address] Natalya Martel Lee, RN RN la1 Sahil Gamble, MARY ANN PA Kenyatta Tan Corrections: (The following items were deleted from the chart) 21:40 21:21 BP 160 / 91; Pulse 70bpm; Resp 16bpm; Pulse Ox 98% RA; la1 la1
--- NOTE | 2018-10-07 21:19 | EDPHYS ---
Physician Documentation [facility] Name: Yoni Shi Age: 77 yrs Sex: Male : 1940 Arrival Date: 10/07/2018 Time: 18:16 Bed 30 Private MD: Judah Rojas R ED Physician [place] HPI: 10/07 19:00 This 77 yrs old Male presents to ER via Ambulatory with complaints of cp Vomiting/Diarrhea, Dehydration. 19:00 The patient presents to the emergency department with nausea, that is moderate, cp vomiting, 3 times today, diarrhea, that is continuous. Onset: The symptoms/episode began/occurred yesterday. 19:00 Possible causes: unknown. Associated signs and symptoms: Pertinent negatives: abdominal cp pain, constipation, dysuria, GI bleeding. Severity of symptoms: in the emergency department the symptoms are unchanged despite home interventions. 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 - Social history:: Smoking status: Patient/guardian denies using tobacco. - Ebola Screening: : Patient denies travel to an Ebola-affected area in the 21 days before illness onset. ROS: 19:05 Constitutional: Positive for poor PO intake, low grade fever, Negative for body aches, cp chills. 19:05 Eyes: Negative for injury, pain, redness, and discharge. cp 19:05 ENT: Negative for drainage from ear(s), ear pain, sore throat, difficulty swallowing, difficulty handling secretions. 19:05 Cardiovascular: Negative for chest pain, palpitations. 19:05 Respiratory: Negative for cough, shortness of breath, wheezing. 19:05 Abdomen/GI: Positive for nausea, vomiting, and diarrhea, Negative for abdominal pain, constipation, abdominal distension, black/tarry stool, rectal bleeding. 19:05 Skin: Negative for rash. 19:05 Neuro: Negative for altered mental status, dizziness, headache, weakness. 19:05 All other systems are negative. Exam: 19:20 Constitutional: The patient appears in no acute distress, alert, awake, cp non-diaphoretic, non-toxic, well developed, well nourished. 19:20 Head/Face: Normocephalic, atraumatic. cp 19:20 Eyes: Periorbital structures: appear normal, Conjunctiva: normal, no exudate, no injection, Sclera: no appreciated abnormality, Lids and lashes: appear normal, bilaterally. 19:20 ENT: External ear(s): are unremarkable, Nose: is normal, Mouth: Lips: moist, Oral mucosa: pink and intact, moist, Posterior pharynx: is normal, airway is patent, no erythema, no exudate. 19:20 Chest/axilla: Inspection: normal, Palpation: is normal, no crepitus, no tenderness. 19:20 Cardiovascular: Rate: normal, Rhythm: regular. 19:20 Respiratory: the patient does not display signs of respiratory distress, Respirations: normal, no use of accessory muscles, no retractions, no splinting, no tachypnea, labored breathing, is not present, Breath sounds: are clear throughout, no decreased breath sounds, no stridor, no wheezing. 19:20 Abdomen/GI: Inspection: abdomen appears normal, Bowel sounds: active, all quadrants, Palpation: abdomen is soft and non-tender, in all quadrants, rebound tenderness, is not appreciated, voluntary guarding, is not appreciated, involuntary guarding, is not appreciated. 19:20 Back: pain, is absent, ROM is normal. Vital Signs: 18:27 BP 142 / 98; Pulse 89; Resp 18; Temp 99.0; Pulse Ox 96% on R/A; aj1 19:58 BP 177 / 80; Pulse 88; Resp 16; Pulse Ox 98% on R/A; la1 21:21 BP 160 / 91; Pulse 70; Resp 16; Temp 98.4; Pulse Ox 98% on R/A; la1 MDM: 18:47 Patient medically screened. cp 19:00 Differential diagnosis: gastritis, viral gastroenteritis, gastroenteritis, dehydration, cp electrolyte abnormality. 21:15 Data reviewed: vital signs, nurses notes, lab test result(s), radiologic studies, CT cp scan. 21:15 Counseling: I had a detailed discussion with the patient and/or guardian regarding: the cp historical points, exam findings, and any diagnostic results supporting the discharge/admit diagnosis, lab results, radiology results, to return to the emergency department if symptoms worsen or persist or if there are any questions or concerns that arise at home. Response to treatment: the patient's symptoms have markedly improved after treatment. Refusal of service: The patient/guardian displays adequate decision making capability and despite a detailed discussion of alternatives, benefits, risks, and consequences refuses: Admission to the hospital for further work-up and treatment. ED course: VSS. Patient reports symptoms markedly improved, declines admission and requests discharge to home for continued monitoring. 10/07 18:58 Order name: Basic Metabolic Panel cp 10/07 18:58 Order name: CBC with Diff cp 10/07 18:58 Order name: Creatinine for Radiology cp 10/07 18:58 Order name: Hepatic Function cp 10/07 18:58 Order name: Lipase; Complete Time: 19:48 cp 10/07 18:58 Order name: Magnesium; Complete Time: 19:48 cp 10/07 18:59 Order name: Basic Metabolic Panel; Complete Time: 19:48 EDMS 10/07 19:54 Interpretation: Normal except: CL 112; CO2 20; GLUC 107; BUN 48; CRE 2.60; GFR 24. cp 10/07 18:59 Order name: CBC with Automated Diff; Complete Time: 19:48 EDMS 30 19:48 Interpretation: Normal except: WBC 3.9; RBC 5.57; HCT 50.8; SHAYNE% 77.0; LYM% 11.1; LYMA cp 0.4. 10/07 18:59 Order name: Creatinine (Radiology Only); Complete Time: 19:48 EDMS 10/07 19:49 Interpretation: Abnormal: CRE 2.62; GFR 24. cp 10/07 18:59 Order name: Liver (Hepatic) Function; Complete Time: 19:48 EDMS 10/07 19:54 Interpretation: Normal except: GLOB 4.4; A/G 0.8. cp 10/07 20:52 Order name: Abdomen ; Complete Time: 21:00 EDMS 10/07 21:15 Order name: Urine Dipstick--Ancillary (enter results) ar5 10/07 18:58 Order name: IV Saline Lock; Complete Time: 19:18 cp 10/07 18:58 Order name: Labs collected and sent; Complete Time: 19:18 cp 10/07 21:02 Order name: PO challenge; Complete Time: 21:08 cp 10/07 21:03 Order name: Urine Dipstick-Ancillary (obtain specimen); Complete Time: 21:08 cp Administered Medications: 19:17 Drug: NS 0.9% 500 ml Route: IV; Rate: 100 ml/hr; Site: left antecubital; la1 19:48 Follow up: IV Status: Completed infusion la1 19:17 Drug: Pepcid 20 mg Route: IVP; Site: left antecubital; la1 19:48 Follow up: Response: No adverse reaction la1 19:17 Drug: Zofran 4 mg Route: IVP; Site: left antecubital; la1 19:48 Follow up: Response: No adverse reaction la1 19:48 Drug: NS 0.9% 500 ml Route: IV; Rate: 500 ml/hr; Site: left antecubital; la1 21:39 Follow up: IV Status: Completed infusion la1 21:39 Drug: Imodium A-D 2 mg Route: PO; la1 21:39 Follow up: Response: Medication administered at discharge. la1 Disposition: 10/07/18 21:18 Discharged to Home. Impression: Nausea and vomiting, Diarrhea, unspecified, Dehydration. - Condition is Stable. - Discharge Instructions: Dehydration, Adult, Diarrhea, Adult, Clear Liquid Diet, Adult, Nausea and Vomiting, Adult. - Prescriptions for Zofran 4 mg Oral Tablet - take 1 tablet by ORAL route every 12 hours As needed; 20 tablet. Lomotil 2.5- 0.025 mg Oral Tablet - take 1 tablet by ORAL route every 6 hours As needed; 20 tablet. - Medication Reconciliation Form, Thank You Letter, Antibiotic Education, Prescription Opioid Use form. - Follow up: Judah Rojas MD; When: 1 - 2 days; Reason: Recheck today's complaints. Follow up: Judah Rojas MD; When: 2 - 3 days; Reason: Recheck today's complaints. - Problem is new. - Symptoms have improved. Signatures: Dispatcher [employer] EDND Soniya Alexander RN RN aj1 Ken Eason RN RN la1 Sahil Gamble PA PA cp Corrections: (The following items were deleted from the chart) 18:55 18:41 Orthostatics ordered. cp cp 20:52 18:59 Abdomen Pelvis W Con+CT.RAD.BRZ ordered. EDND EDMS 21:40 21:18 10/07/2018 21:18 Discharged to Home. Impression: Nausea and vomiting; Diarrhea, la1 unspecified; Dehydration. Condition is Stable. Forms are Medication Reconciliation Form, Thank You Letter, Antibiotic Education, Prescription Opioid Use. Follow up: Judah Rojas; When: 2 - 3 days; Reason: Recheck today's complaints. Problem is new. Symptoms have improved. cp
[2018-10-07] MEDS ORDERED: LOPERAMIDE HCL 2 MG CAPSULE ONE (21:31)
[2018-10-07 21:55] LABS: Urine Blood TRACE (NEG); Urine Glucose NEGATIVE (NEG); Urine Protein 3+ (NEG); Urine Specific Gravity 1.025 (1.005-1.030); Urine pH 5.5 (5.0-7.0)
== END 2018-10-07 21:40 | disposition home or self-care (01) ==
LOC: ER 18:14
DX: E86.0 Dehydration (principal); R19.7 Diarrhea, unspecified; N28.9 Disorder of kidney and ureter, unspecified; I10 Essential (primary) hypertension; Z85.038 Personal history of other malignant neoplasm of large intestine; Z94.4 Liver transplant status
CPT/HCPCS: 96361; 85025; 80048; 36415; 83735; 80076; 81003; 83690; 74176; 96375; 96374; 99284; J7030; J2405

== ENCOUNTER 2019-04-23 19:51 | Emergency (ER) | payer OTHER ==
[2019-04-23] MEDS ORDERED: ONDANSETRON 4 MG/2 ML VIAL ONE (20:14)
[2019-04-23] MEDS ORDERED: NA CHLORIDE 0.9% 1,000 ML ONE (20:14)
[2019-04-23 20:28] LABS: Absolute Lymphocytes (CBC) 0.3 K/uL (0.7-4.9); Basophils % 0.3 % (0-1.3); Hematocrit 45.6 % (39.6-49.0); Lymphocytes % 5.8 % (15.3-44.8); MPV 7.3 fL (7.6-11.3)
[2019-04-23 20:58] LABS: Albumin 3.3 g/dL (3.4-5.0); Bilirubin Direct 4.9 mg/dL (0-0.2); Potassium 4.5 mmol/L (3.5-5.1); Protein, Total 7.3 g/dL (6.4-8.2)
[2019-04-23] MEDS ORDERED: DIPHENHYDRAMINE 50 MG/ML VIAL ONE (20:59)
[2019-04-23 21:11] LABS: Blood Morphology Comment NOT SEEN (NOT SEEN); Platelet Estimate ADEQ
[2019-04-23 21:22] LABS: Bilirubin Total 5.9 mg/dL (0.2-1.0)
--- NOTE | 2019-04-23 23:06 | ER ---
Nurse's Notes [facility] Name: Yoni Shi Age: 78 yrs Sex: Male : 1940 Arrival Date: 04/23/2019 Time: 19:54 Bed 4 Private MD: Diagnosis: Choledocholithiasis;Acute kidney failure, unspecified Presentation: 04/23 19:56 Presenting complaint: Patient states: Vomiting since yesterday. Denies abdominal pain, ca1 diarrhea and fever. Pt actively vomiting in triage. Transition of care: patient was not received from another setting of care. Onset of symptoms was April 22, 2019. Risk Assessment: Do you want to hurt yourself or someone else? Patient reports no desire to harm self or others. Initial Sepsis Screen: Does the patient meet any 2 criteria? No. Patient's initial sepsis screen is negative. Does the patient have a suspected source of infection? No. Patient's initial sepsis screen is negative. Care prior to arrival: None. 19:56 Method Of Arrival: Ambulatory ca1 19:56 Acuity: LIV 3 ca1 Historical: - Allergies: 19:59 Iodinated Contrast Media - IV Dye; ca1 - PMHx: 19:59 colon cancer; Hypertension; liver transplant; Pulmonary Embolism; Renal Disease; ca1 - PSHx: 19:59 partial colectomy; total colectomy with ileal-pouch; Liver Transplant; ca1 - Immunization history:: Adult Immunizations up to date, Pneumococcal vaccine is not up to date, Flu vaccine is not up to date. - Social history:: Smoking status: Patient/guardian denies using tobacco. - Ebola Screening: : Patient negative for fever greater than or equal to 101.5 degrees Fahrenheit, and additional compatible Ebola Virus Disease symptoms Patient denies exposure to infectious person Patient denies travel to an Ebola-affected area in the 21 days before illness onset No symptoms or risks identified at this time. Screenin:09 Abuse screen: Denies threats or abuse. Nutritional screening: No deficits noted. ea Tuberculosis screening: No symptoms or risk factors identified. Fall Risk None identified. Assessment: 20:09 General: Appears in no apparent distress. Behavior is calm, cooperative, appropriate ea for age. Pain: Denies pain. Neuro: Level of Consciousness is awake, alert, obeys commands, Oriented to person, place, time. GI: Abdomen is non-distended, Reports vomiting. 21:14 Reassessment: Patient and/or family updated on plan of care and expected duration. Pain ea level reassessed. Patient is alert, oriented x 3, equal unlabored respirations, skin warm/dry/pink. Pt taken to CT. 22:00 Reassessment: Patient and/or family updated on plan of care and expected duration. Pain ea level reassessed. Patient is alert, oriented x 3, equal unlabored respirations, skin warm/dry/pink. 23:40 Reassessment: Patient appears in no apparent distress at this time. Patient and/or rv family updated on plan of care and expected duration. Pain level reassessed. Patient is alert, oriented x 3, equal unlabored respirations, skin warm/dry/pink. PATIENT IS FOR ADMISSION. PATIENT AND FAMILY UPDATED. 04/24 00:00 Reassessment: Patient and/or family updated on plan of care and expected duration. Pain ea level reassessed. Patient is alert, oriented x 3, equal unlabored respirations, skin warm/dry/pink. 01:16 Reassessment: Patient and/or family updated on plan of care and expected duration. Pain ea level reassessed. Patient is alert, oriented x 3, equal unlabored respirations, skin warm/dry/pink. 02:00 Reassessment: Patient and/or family updated on plan of care and expected duration. Pain ea level reassessed. Patient is alert, oriented x 3, equal unlabored respirations, skin warm/dry/pink. 03:08 Reassessment: Patient appears in no apparent distress at this time. Patient and/or rv family updated on plan of care and expected duration. Pain level reassessed. Patient is alert, oriented x 3, equal unlabored respirations, skin warm/dry/pink. PATIENT IS FOR TRANSFER. AWAITING ACCEPTANCE FROM ANOTHER FACILITY. Patient denies pain at this time. 03:47 Reassessment: Patient and/or family updated on plan of care and expected duration. Pain ea level reassessed. Patient is alert, oriented x 3, equal unlabored respirations, skin warm/dry/pink. Report given to Tracy CARLISLE at [facility]. 04:31 Reassessment: Patient and/or family updated on plan of care and expected duration. Pain ea level reassessed. Patient is alert, oriented x 3, equal unlabored respirations, skin warm/dry/pink. [facility] at facility for transfer, pt left ED via stretcher, per EMS. Pt tolerating well. Vital Signs: 04/23 19:59 BP 203 / 122; Pulse 76; Resp 17 S; Temp 97.2(TE); Pulse Ox 96% on R/A; Weight 81.65 kg ca1 (R); Height 5 ft. 11 in. (180.34 cm) (R); Pain 0/10; 20:22 BP 162 / 86; Pulse 80; Resp 18; Pulse Ox 97% on R/A; ea 21:00 BP 158 / 79; Pulse 55; Resp 16; Pulse Ox 98% on R/A; rv 22:00 BP 127 / 69; Pulse 60; Resp 16; Pulse Ox 98% on R/A; rv 22:30 BP 123 / 71; Pulse 59; Resp 17; Pulse Ox 98% on R/A; rv 23:00 BP 134 / 72; Pulse 60; Resp 16; Pulse Ox 98% on R/A; rv 23:00 Temp 98.2; ea 23:30 BP 112 / 69; Pulse 62; Resp 15; Pulse Ox 98% on R/A; rv 0115 00:00 BP 124 / 71; Pulse 64; Resp 16; Pulse Ox 97% on R/A; rv 00:30 BP 141 / 75; Pulse 63; Resp 17; Pulse Ox 99% on R/A; rv 01:00 BP 133 / 74; Pulse 60; Resp 16; Pulse Ox 98% on R/A; rv 02:00 BP 128 / 75; Pulse 63; Resp 16; Pulse Ox 97% on R/A; rv 03:00 BP 147 / 75; Pulse 62; Resp 16; Pulse Ox 97% on R/A; rv 04:33 BP 147 / 74; Pulse 59; Resp 18; Pulse Ox 97% ; ea 04/23 19:59 Body Mass Index 25.10 (81.65 kg, 180.34 cm) ca1 ED Course: 04/23 19:54 Patient arrived in ED. cl3 19:58 Triage completed. ca1 19:59 Arm band placed on right wrist. ca1 20:07 Ike Fraser MD is Attending Physician. tw4 20:09 Deana Dumas RN is Primary Nurse. ea 20:09 Patient has correct armband on for positive identification. Bed in low position. Call ea light in reach. Side rails up X2. 20:20 Inserted saline lock: 20 gauge in left antecubital area, using aseptic technique. Blood ea collected. 21:22 Notified ED physician of a critical lab result(s). total bilirubin 5.9. Dr Evelio nickerson notified. 21:44 Abdomen In Process Unspecified. EDMS 23:04 Sb Reynolds MD is Hospitalizing Provider. tw4 23:54 No provider procedures requiring assistance completed. Patient admitted, IV remains in ea place. Administered Medications: 20:21 Drug: NS 0.9% 500 ml Route: IV; Rate: bolus; Site: left antecubital; ea 23:42 Follow up: IV Status: Completed infusion rv 20:22 Drug: Zofran 4 mg Route: IVP; Site: left antecubital; ea 23:42 Follow up: Response: Marked relief of symptoms rv 20:59 Drug: Benadryl 25 mg Route: IVP; Site: left antecubital; ea 23:42 Follow up: Response: No adverse reaction rv 23:08 Drug: Zosyn 2.25 grams Route: IVPB; Infused Over: 60 mins; Site: left antecubital; rv 23:42 Follow up: IV Status: Completed infusion rv 04/24 03:29 Drug: NS 0.9% 500 ml Route: IV; Rate: bolus; Site: left antecubital; rv 04:35 Follow up: Response: No adverse reaction; IV Status: Completed infusion; IV Intake: ea 500ml Intake: 04:35 IV: 500ml; Total: 500ml. ea Outcome: 04/23 23:05 Decision to Hospitalize by Provider. tw4 23:55 Instructed on the need for admit. ea 04/24 03:13 ER care complete, transfer ordered by . tw4 04:31 Transferred by ground EMS to [facility], Transfer form completed. ea X-rays sent w/ patient. 04:31 Condition: stable 04:35 Patient left the ED. ea Signatures: Dispatcher [employer] EDMS Rosa Santacruz RN RN bb Deana Dumas RN RN Ike Prabhakar MD MD tw4 Holden Carpenter RN RN rv Elena Cabrera RN RN ca1 Henry Schaffer cl3 Corrections: (The following items were deleted from the chart) 04/23 21:15 20:22 BP 162 / 86; Pulse 18bpm; Resp 80bpm; Pulse Ox 97% RA; ea ea
--- NOTE | 2019-04-23 23:06 | EDPHYS ---
Physician Documentation [facility] Name: Yoni Shi Age: 78 yrs Sex: Male : 1940 Arrival Date: 04/23/2019 Time: 19:54 Bed 4 Private MD: ED Physician Ike Fraser HPI: 04/24 02:19 This 78 yrs old Male presents to ER via Ambulatory with complaints of tw4 Vomiting. 02:19 The patient presents to the emergency department with vomiting. Onset: The tw4 symptoms/episode began/occurred yesterday. Possible causes: unknown. The symptoms are aggravated by nothing. The symptoms are alleviated by nothing. Associated signs and symptoms: The patient has no apparent associated signs or symptoms. Severity of symptoms: At their worst the symptoms were moderate in the emergency department the symptoms are unchanged. The patient has not experienced similar symptoms in the past. Historical: - Allergies: 04/23 19:59 Iodinated Contrast Media - IV Dye; ca1 - PMHx: 19:59 colon cancer; Hypertension; liver transplant; Pulmonary Embolism; Renal Disease; ca1 - PSHx: 19:59 partial colectomy; total colectomy with ileal-pouch; Liver Transplant; ca1 - Immunization history:: Adult Immunizations up to date, Pneumococcal vaccine is not up to date, Flu vaccine is not up to date. - Social history:: Smoking status: Patient/guardian denies using tobacco. - Ebola Screening: : Patient negative for fever greater than or equal to 101.5 degrees Fahrenheit, and additional compatible Ebola Virus Disease symptoms Patient denies exposure to infectious person Patient denies travel to an Ebola-affected area in the 21 days before illness onset No symptoms or risks identified at this time. ROS: 04/24 02:19 Constitutional: Negative for fever, chills, and weight loss, Eyes: Negative for injury, tw4 pain, redness, and discharge, ENT: Negative for injury, pain, and discharge. Back: Negative for injury and pain, MS/Extremity: Negative for injury and deformity, Skin: Negative for injury, rash, and discoloration. Abdomen/GI: Positive for abdominal pain, nausea, vomiting. Exam: 02:19 Constitutional: This is a well developed, well nourished patient who is awake, alert, tw4 and in no acute distress. Head/Face: Normocephalic, atraumatic. Chest/axilla: Normal chest wall appearance and motion. Nontender with no deformity. No lesions are appreciated. Cardiovascular: Regular rate and rhythm with a normal S1 and S2. No gallops, murmurs, or rubs. Normal PMI, no JVD. No pulse deficits. Respiratory: Lungs have equal breath sounds bilaterally, clear to auscultation and percussion. No rales, rhonchi or wheezes noted. No increased work of breathing, no retractions or nasal flaring. Abdomen/GI: Soft, non-tender, with normal bowel sounds. No distension or tympany. No guarding or rebound. No evidence of tenderness throughout. MS/ Extremity: Pulses equal, no cyanosis. Neurovascular intact. Full, normal range of motion. Neuro: Awake and alert, GCS 15, oriented to person, place, time, and situation. Cranial nerves II-XII grossly intact. Motor strength 5/5 in all extremities. Sensory grossly intact. Cerebellar exam normal. Normal gait. Vital Signs: 04/23 19:59 BP 203 / 122; Pulse 76; Resp 17 S; Temp 97.2(TE); Pulse Ox 96% on R/A; Weight 81.65 kg ca1 (R); Height 5 ft. 11 in. (180.34 cm) (R); Pain 0/10; 20:22 BP 162 / 86; Pulse 80; Resp 18; Pulse Ox 97% on R/A; ea 21:00 BP 158 / 79; Pulse 55; Resp 16; Pulse Ox 98% on R/A; rv 22:00 BP 127 / 69; Pulse 60; Resp 16; Pulse Ox 98% on R/A; rv 22:30 BP 123 / 71; Pulse 59; Resp 17; Pulse Ox 98% on R/A; rv 23:00 BP 134 / 72; Pulse 60; Resp 16; Pulse Ox 98% on R/A; rv 23:00 Temp 98.2; ea 23:30 BP 112 / 69; Pulse 62; Resp 15; Pulse Ox 98% on R/A; rv 04/24 00:00 BP 124 / 71; Pulse 64; Resp 16; Pulse Ox 97% on R/A; rv 00:30 BP 141 / 75; Pulse 63; Resp 17; Pulse Ox 99% on R/A; rv 01:00 BP 133 / 74; Pulse 60; Resp 16; Pulse Ox 98% on R/A; rv 02:00 BP 128 / 75; Pulse 63; Resp 16; Pulse Ox 97% on R/A; rv 03:00 BP 147 / 75; Pulse 62; Resp 16; Pulse Ox 97% on R/A; rv 04:33 BP 147 / 74; Pulse 59; Resp 18; Pulse Ox 97% ; ea 04/23 19:59 Body Mass Index 25.10 (81.65 kg, 180.34 cm) ca1 MDM: 04/23 20:08 Patient medically screened. 04/24 02:19 Differential diagnosis: gastritis, cholecystitis, pancreatitis, appendicitis, tw4 diverticulitis. Data reviewed: vital signs, nurses notes. Data interpreted: Pulse oximetry: Interpretation: normal. Counseling: I had a detailed discussion with the patient and/or guardian regarding: the historical points, exam findings, and any diagnostic results supporting the discharge/admit diagnosis. Medication response: Zofran relieved the patient's nausea. 04/23 20:10 Order name: Basic Metabolic Panel; Complete Time: 23:02 04/23 23:02 Interpretation: Normal except: CL 111; GLUC 109; BUN 42; CRE 2.44; GFR 26. tw04/23 20:10 Order name: CBC with Diff; Complete Time: 23:02 04/23 23:03 Interpretation: Normal except: SHAYNE% 86.3; MPV 7.3; PLT 119; LYM% 5.8. tw04/23 20:10 Order name: Creatinine for Radiology; Complete Time: 23:03 tw04/23 23:03 Interpretation: Normal except: CRE 2.43; GFR 26. 04/23 20:10 Order name: Hepatic Function; Complete Time: 23:03 tw4 04/23 23:03 Interpretation: Normal except: AST 134; BILIT 5.9; ALK 183; ALT 185; BILID 4.9; ALB tw4 3.3; GLOB 4.0; A/G 0.8. 04/23 20:10 Order name: Lipase; Complete Time: 23:03 tw4 04/23 23:03 Interpretation: Within normal limits: LIP 175. tw04/23 20:34 Order name: Manual Differential; Complete Time: 23:03 EDNE 04/23 23:03 Interpretation: Normal except: BANDS [F] 7; SEGS 84; LYM 5. tw4 04/23 21:15 Order name: Abdomen EDMS 04/23 20:10 Order name: IV Saline Lock; Complete Time: 20:22 tw4 04/23 20:10 Order name: Labs collected and sent; Complete Time: 20: tw4 Administered Medications: 04/23 20:21 Drug: NS 0.9% 500 ml Route: IV; Rate: bolus; Site: left antecubital; ea 23:42 Follow up: IV Status: Completed infusion rv 20:22 Drug: Zofran 4 mg Route: IVP; Site: left antecubital; ea 23:42 Follow up: Response: Marked relief of symptoms rv 20:59 Drug: Benadryl 25 mg Route: IVP; Site: left antecubital; ea 23:42 Follow up: Response: No adverse reaction rv 23:08 Drug: Zosyn 2.25 grams Route: IVPB; Infused Over: 60 mins; Site: left antecubital; rv 23:42 Follow up: IV Status: Completed infusion rv 04/24 03:29 Drug: NS 0.9% 500 ml Route: IV; Rate: bolus; Site: left antecubital; rv 04:35 Follow up: Response: No adverse reaction; IV Status: Completed infusion; IV Intake: ea 500ml Disposition: 04/24/19 03:13 Transfer ordered to [facility]. Diagnosis are Choledocholithiasis, Acute kidney failure, unspecified. - Reason for transfer: Higher level of care. - Accepting physician is Dr Collins. - Condition is Stable. - Problem is new. - Symptoms have improved. Signatures: Dispatcher [employer] EDNE Deana Dumas RN RN Ike Prabhakar MD MD tw4 Holden Carpenter RN RN rv Acob, Cheryl RN RN ca1 Corrections: (The following items were deleted from the chart) 04/23 20:44 20:11 Abdomen Pelvis Wo Con+CT.RAD.BRZ ordered. EDNE EDNE : 20:56 Abdomen Pelvis W Con+CT.RAD.BRZ ordered. EDNE EDNE : 20:44 Abdomen ordered. EDNE EDNE 04/24 02:11 04/23 23:05 Hospitalization Ordered by Sb Reynolds MD for Inpatient Admission. tw4 Preliminary diagnosis is Cholelithiasis. Bed requested for Telemetry/MedSurg (Inpatient). Status is Inpatient Admission. Condition is Stable. Problem is new. Symptoms are unchanged. UTI on Admission? No. tw4 04/24 03:10 02:11 04/23/2019 23:05 Hospitalization Ordered by Sb Reynolds MD for Inpatient tw4 Admission. Preliminary diagnosis is Cholelithiasis; Choledocholithiasis. Bed requested for Telemetry/MedSurg (Inpatient). Status is Inpatient Admission. Condition is Stable. Problem is new. Symptoms are unchanged. UTI on Admission? No. tw4 03:15 03:13 04/24/2019 03:13 Transfer ordered to [facility]. Diagnosis is tw4 Choledocholithiasis. Reason for transfer: Higher level of care. Accepting physician is Dr Collins. Condition is Stable. Problem is new. Symptoms have improved. tw4 04:35 03:15 04/24/2019 03:13 Transfer ordered to [facility]. Diagnosis is ea Choledocholithiasis; Acute kidney failure, unspecified. Reason for transfer: Higher level of care. Accepting physician is Dr Collins. Condition is Stable. Problem is new. Symptoms have improved. tw4
[2019-04-24 08:40] VITALS: TEMP 98.2
[2019-04-24 08:48] VITALS: O2SAT 97
[2019-04-24 08:51] VITALS: BP 147/74
--- NOTE | 2019-04-24 12:05 | RAD REPORT ---
EXAM DESCRIPTION: CT Abdomen and Pelvis Without Intravenous Contrast CLINICAL HISTORY: The patient is 78 years old and is Male; ABD PAIN TECHNIQUE: Axial computed tomography images of the abdomen and pelvis without intravenous contrast. Sagittal and coronal reformatted images were created and reviewed. This CT exam was performed usi ng one or more of the following dose reduction techniques: automated exposure control, adjustment o f the mA and/or kV according to patient size, and/or use of iterative reconstruction technique. COMPARISON: CT of the abdomen and pelvis October 07, 2018. FINDINGS: LUNG BASES: There is mild subsegmental atelectasis and/or scarring in bilateral lung bas es. HEART: A trace pericardial effusion is present. ABDOMEN: LIVER: Homogeneous without focal mass. GALLBLADDER AND BILE DUCTS: The gallbladder is either contracted versus surgically absent. Dilat ation of the common bile duct is present with several stones noted, the largest of which measures 1.2 cm near the ampulla. PANCREAS: The pancreas is atrophic. Coarse calcifications are present at the level of the panc reatic head. No ductal dilation. SPLEEN: Unremarkable. ADRENALS: A 1.8 cm low attenuating left adrenal gland nodule is present measuring 14 Hounsfield units. KIDNEYS AND URETERS: The left kidney is atrophic with chronic calcification at the level of the UPJ. There is no hydronephrosis or hydroureter of either kidney. An exophytic 2 cm right renal cyst i s present. STOMACH AND BOWEL: The stomach is minimally distended. The small bowel is normal in caliber. Maria L dence of a colectomy is present. There is no bowel obstruction. No mucosal thickening. PELVIS: APPENDIX: See above. BLADDER: Unremarkable. No stones. REPRODUCTIVE: Unremarkable as visualized. ABDOMEN and PELVIS: INTRAPERITONEAL SPACE: Unremarkable. No free air. No significant fluid collection. BONES/JOINTS: No acute fracture. SOFT TISSUES: Evidence of an anterior abdominal wall mesh is noted. VASCULATURE: Unremarkable. No abdominal aortic aneurysm. LYMPH NODES: Unremarkable. No enlarged lymph nodes. IMPRESSION: 1. Choledocholithiasis, similar to prior exam. 2. Evidence of prior partial colectomy. No evidence of bowel obstruction. 3. Chronic findings as detailed above. 4. Left adrenal gland nodule, probable adenoma. One-year follow-up adrenal washout CT is recommended. If stable for greater than or equal to 1 year, no further follow-up imaging recommended. Electronically signed by: Martha Reeves MD 04/23/2019 10:08 PM HAT MODEL Due to temporary technical issues with the PACS/Fluency reporting system, reports are being signed by the in house radiologist as a courtesy to ensure prompt reporting. The interpreting radiologist is f ully responsible for the content of the report.
== END 2019-04-24 04:35 | disposition short-term general hospital (02) ==
LOC: ER 19:51
DX: K80.50 Calculus of bile duct without cholangitis or cholecystitis without obstruction (principal); N17.9 Acute kidney failure, unspecified; I10 Essential (primary) hypertension; Z94.4 Liver transplant status; Z85.038 Personal history of other malignant neoplasm of large intestine; Z91.041 Radiographic dye allergy status
CPT/HCPCS: 96365; 96361; 85025; 80048; 36415; 80076; 83690; 74176; 96375; 99285; J1200; J7030; J2405

== ENCOUNTER 2019-05-30 14:35 | Emergency (ER) | payer OTHER ==
--- OUTSIDE RECORDS SUMMARY | 2019-05-30 14:44 | XMS REPORT ---
:1940 [facility] Address [address] [place] [id number] Care Team Providers Name Role Phone LIVIA MARLEY Unavailable Unavailable Problems This patient has no known problems. Allergies, Adverse Reactions, Alerts This patient has no known allergies or adverse reactions. Medications This patient has no known medications. Results Test Description Test Time Test Comments Text Results Atomic Results Result Comments BLOOD CULTURE 2019-04-29 10:00:00 Test Item Value Reference Range Comments CULTURE (BEAKER) (test hrge=1131) No growth in 5 days BLOOD [id number] 10:00:00 Test Item Value Reference Range Comments CULTURE (BEAKER) (test qrwy=1317) No growth in 5 days SIROLIMUS [id number] 10:57:00 Test Item Value Reference Range Comments SIROLIMUS LEVEL BLOOD (BEAKER) (test fckp=328) 4.6 ng/mL 5.0-15.0 Processing Rep ID - MCKAY EPATIC FUNCTION [id number] 06:53:00 Test Item Value Reference Range Comments TOTAL PROTEIN (BEAKER) (test darb=577) 6.2 gm/dL 6.0-8.3 ALBUMIN (BEAKER) (test dsgp=2822) 3.1 g/dL 3.5-5.0 BILIRUBIN TOTAL (BEAKER) (test efci=340) 1.6 mg/dL 0.2-1.2 BILIRUBIN DIRECT (BEAKER) (test runu=473) 1.0 mg/dL 0.1-0.5 ALKALINE PHOSPHATASE (BEAKER) (test xxcf=073) 134 U/L 40-150 AST (SGOT) (BEAKER) (test fsds=542) 55 U/L 5-34 ALT (SGPT) (BEAKER) (test acqy=962) 105 U/L 6-55 Processing Rep ID Ene SHARP WBASIC METABOLIC [id number] 06:53:00 Test Item Value Reference Range Comments SODIUM (BEAKER) (test 139 meq/L 136-145 jodb=009) POTASSIUM (BEAKER) (test 4.0 meq/L 3.5-5.1 gxdf=090) CHLORIDE (BEAKER) (test 114 meq/L 98-107 gyzm=588) CO2 (BEAKER) (test 17 meq/L 22-29 luqx=992) BLOOD UREA NITROGEN 31 mg/dL 7-21 (BEAKER) (test zbqu=419) CREATININE (BEAKER) (test 2.07 mg/dL 0.57-1.25 yjsz=521) GLUCOSE RANDOM (BEAKER) 91 mg/dL 70-105 (test zite=915) CALCIUM (BEAKER) (test 8.3 mg/dL 8.4-10.2 mlxs=242) EGFR (BEAKER) (test 31 mL/min/1.73 sq m ESTIMATED GFR IS NOT gwoh=9528) ACCURATE CREATININE CLEARANCE IN PREDICTING GLOMERULAR FILTRATION RATE. ESTIMATED GFR IS NOT APPLICABLE FOR DIALYSIS PATIENTS. Processing Rep EDVIN SHARP WCBC (HEMOGRAM ONLY)2019-04-25 06:00:00 Test Item Value Reference Range Comments WHITE BLOOD CELL COUNT (BEAKER) (test sjlc=201) 5.3 K/ L 3.5-10.5 RED BLOOD CELL COUNT (BEAKER) (test zrvz=950) 4.67 M/ L 4.63-6.08 HEMOGLOBIN (BEAKER) (test cqcf=724) 13.8 GM/DL 13.7-17.5 HEMATOCRIT (BEAKER) (test xcyn=237) 41.7 % 40.1-51.0 MEAN CORPUSCULAR VOLUME (BEAKER) (test dnvv=166) 89.3 fL 79.0-92.2 MEAN CORPUSCULAR HEMOGLOBIN (BEAKER) (test 29.6 pg 25.7-32.2 stvy=782) MEAN CORPUSCULAR HEMOGLOBIN CONC (BEAKER) (test 33.1 GM/DL 32.3-36.5 keyk=426) RED CELL DISTRIBUTION WIDTH (BEAKER) (test 14.3 % 11.6-14.4 gtmr=065) PLATELET COUNT (BEAKER) (test vmkg=755) 109 K/CU MM 150-450 MEAN PLATELET VOLUME (BEAKER) (test vnic=954) 9.6 fL 9.4-12.4 NUCLEATED RED BLOOD CELLS (BEAKER) (test 0 /100 WBC 0-0 jacw=457) U/S, ABDOMINAL, [id number] 03:49:00With DopplerReason for exam:-> elevated liver enzymes, s/p liver transplant in 1998, concern for choldocholithiasisFINAL REPORT INDICATION: elevated liver enzymes, s/p liver transplant in 1998, concern for choldocholithiasis COMPARISON: None TECHNIQUE: Real-time millard-scale transabdominal and color and spectral Doppler ultrasound. FINDINGS:Liver: Size: 14.3cm. Echogenicity: Normal. Masses/lesions: None. Surface Nodularity: None. Intrahepatic bile ducts: Normal. Common bile duct: 0.7cm. MPV: 1.2cm. Gallbladder: Surgically absent. Pancreas: Head and uncinate process: Not well-seen secondary to poor acoustic windowing.. Body and tail: Not well- seen. Spleen: Size: 12.2cm. Echogenicity: Unremarkable. Right kidney: Size: 12.1 x 5.9 x 5.0 cm. Parenchyma: Increased echogenicity.. Interpole cyst measuring up to 1.7 cm.. No stones. Hydronephrosis: None. Left kidney: Size: 8.4 x 3.6 x 3.0 cm. Parenchyma: Increased echogenicity..No cysts. 0.9 cm echogenic focus in the lower pole favored to represent nephrolithiasis.. Hydronephrosis: None. Ascites: None. Regional Vasculature: The visible abdominal aorta, IVC and hepatic veins are patent. Proximal aorta measures 2.6 cm, midportion measures 2.5 cm, distally not well- seen secondary to poor acoustic windowing. Color and Spectral imaging:MPV: Diameter: 1.2 Flow: Hepatopedal. Velocity: 38.3 cm/sec Filling defects: NoneLeft and right portal veins: Patent. Flow: Antegrade Filling defects: None. Hepatic arteries: Patent RI proper hepatic: 0.7 RI right hepatic: 0.7 RI left hepatic: 0.6 IVC, Hepatic venous confluence , right HV, middle HV and left HV are patent. Additional findings: None. IMPRESSION: Postsurgical changes of an orthotopic liver transplant with unremarkable sonographic appearance of the transplant liver. Postsurgical changes of a cholecystectomy. Increased bilateral renal parenchymal echogenicity , nonspecific however can be seen with medical renal disease. Left nephrolithiasis however no hydronephrosis. Unremarkable hepatic Doppler examination. Signed: Maribell Alexis Verified Date/Time: 2019 03:49:02 Electronically signed by: MARIBELL ALEXIS MD on 2019 03:49 AMF, [id number] 17:59:00Reason for exam:->ercpFINAL REPORT A fluoroscopic unit was utilized for a procedure performed in the operating room. No interpretation was requested. Please refer to the operative report regarding findings. Please refer to PACS for patient radiation dose information. Signed: Romeo Purdy Verified Date/Time: 17:59:55 Reading Location: [facility] Consult Reading Room RESPIRATORY PANEL [id number] 17:42:00 Test Item Value Reference Range Comments HUMAN METAPNEUMOVIRUS (BEAKER) (test Not detected Not detected, Equivocal pjio=9607) RHINOVIRUS (BEAKER) (test earp=2626) Not detected Not detected, Equivocal INFLUENZA A (BEAKER) (test hvau=4063) Not detected Not detected, Equivocal INFLUENZA A (NO SUBTYPE) (test axrq=5696) INFLUENZA A SUBTYPE H1 (BEAKER) (test lrlv=4789) INFLUENZA A SUBTYPE H3 (BEAKER) (test ftre=4889) INFLUENZA A SUBTYPE H1-2009 (BEAKER) (test dyka=7054) INFLUENZA B (BEAKER) (test vymq=0412) Not detected Not detected, Equivocal RESPIRATORY SYNCYTIAL VIRUS (BEAKER) Not detected Not detected, Equivocal (test lseq=2866) PARAINFLUENZA VIRUS 1 (BEAKER) (test Not detected Not detected, Equivocal xnwn=8000) PARAINFLUENZA VIRUS 2 (BEAKER) (test Not detected Not detected, Equivocal gdcy=9860) PARAINFLUENZA VIRUS 3 (BEAKER) (test Not detected Not detected, Equivocal lxbk=1163) PARAINFLUENZA VIRUS 4 (BEAKER) (test Not detected Not detected, Equivocal plbz=0557) ADENOVIRUS (BEAKER) (test hpfz=1196) Not detected Not detected, Equivocal CORONAVIRUS 229E (BEAKER) (test Not detected Not detected, Equivocal tyax=7363) CORONAVIRUS HKU1 (BEAKER) (test Not detected Not detected, Equivocal zodr=2495) CORONAVIRUS NL63 (BEAKER) (test Not detected Not detected, Equivocal glui=5641) CORONAVIRUS OC43 (BEAKER) (test Not detected Not detected, Equivocal kptz=6358) BORDETELLA PERTUSSIS (BEAKER) (test Not detected Not detected, Equivocal gatg=0778) CHLAMYDOPHILA PNEUMONIAE (BEAKER) (test Not detected Not detected, Equivocal gnqh=6414) MYCOPLASMA PNEUMONIAE (BEAKER) (test Not detected Not detected, Equivocal ptku=2181) Other viruses and bacteria not targeted by this PCR panel cannot be excluded; therefore clinical correlation and follow up of serology, culture results, and other molecular studies is required. The results are not intended to be used as the sole means for clinical diagnosis or patient management decisions. This sample was tested at the [facility] using the [employer] Respiratory Panel. It is FDA cleared and has been verified and approved by the [facility] for clinical use on nasopharyngeal swab specimens.The performance of the FilmArrayRP has not been established in individuals who received influenza vaccine. Recent administration ofa nasal influenza vaccine may cause false positive results for Influenza A and/orInfluenza B.RAPID INFLUENZA A&B [id number] 14:10:00 Test Item Value Reference Range Comments RAPID INFLUENZA A AG (BEAKER) (test Negative Negative, Inconclusive dogb=8415) RAPID INFLUENZA B AG (BEAKER) (test Negative Negative, Inconclusive jmpp=0796) SIROLIMUS [id number] 10:47:00 Test Item Value Reference Range Comments SIROLIMUS LEVEL BLOOD (BEAKER) (test yxjp=381) 5.5 ng/mL 5.0-15.0 Processing Rep ID - [facility] METABOLIC [id number] 07:14:00 Test Item Value Reference Range Comments SODIUM (BEAKER) (test 141 meq/L 136-145 ciyu=588) POTASSIUM (BEAKER) (test 3.8 meq/L 3.5-5.1 hwni=265) CHLORIDE (BEAKER) (test 109 meq/L 98-107 dvnc=055) CO2 (BEAKER) (test 23 meq/L 22-29 glmb=226) BLOOD UREA NITROGEN 37 mg/dL 7-21 (BEAKER) (test zuww=901) CREATININE (BEAKER) (test 2.11 mg/dL 0.57-1.25 mogg=570) GLUCOSE RANDOM (BEAKER) 81 mg/dL 70-105 (test zxhd=439) CALCIUM (BEAKER) (test 8.9 mg/dL 8.4-10.2 rvpk=662) EGFR (BEAKER) (test 31 mL/min/1.73 sq m ESTIMATED GFR IS NOT oodo=5868) ACCURATE CREATININE CLEARANCE IN PREDICTING GLOMERULAR FILTRATION RATE. ESTIMATED GFR IS NOT APPLICABLE FOR DIALYSIS PATIENTS. Processing Rep ID - Marko slightly ictericHEPATIC FUNCTION [id number] 07:14: 00 Test Item Value Reference Range Comments TOTAL PROTEIN (BEAKER) (test ajuv=905) 7.1 gm/dL 6.0-8.3 ALBUMIN (BEAKER) (test qodj=7834) 3.7 g/dL 3.5-5.0 BILIRUBIN TOTAL (BEAKER) (test ryye=773) 3.6 mg/dL 0.2-1.2 BILIRUBIN DIRECT (BEAKER) (test vdlk=805) 2.5 mg/dL 0.1-0.5 ALKALINE PHOSPHATASE (BEAKER) (test fcrp=849) 172 U/L 40-150 AST (SGOT) (BEAKER) (test pmas=447) 102 U/L 5-34 ALT (SGPT) (BEAKER) (test kymf=009) 152 U/L 6-55 Processing Rep ID - LASpecimen slightly ictericPROTHROMBIN [id number] 07:07:00 Test Item Value Reference Range Comments PROTIME (BEAKER) (test dtrb=775) 13.6 seconds 11.9-14.2 INR (BEAKER) (test tilu=844) 1.1 <=5.9 Effective 09/05/2018: PT Reference Range ChangeNew: 11.9-14.2 Previous: 11.7- 14.7RECOMMENDED COUMADIN/WARFARIN INR THERAPY RANGESSTANDARD DOSE: 2.0-3.0 Includes: PROPHYLAXIS for venous thrombosis, systemic embolization; TREATMENT for venous thrombosis and/or pulmonary embolus.HIGH RISK: Target INR is2.5-3.5 for patients wiht mechanical heart valves.CBC W/PLT COUNT & AUTO [id number] 06:58:00 Test Item Value Reference Range Comments WHITE BLOOD CELL COUNT (BEAKER) (test fnvo=829) 4.5 K/ L 3.5-10.5 RED BLOOD CELL COUNT (BEAKER) (test invo=582) 5.20 M/ L 4.63-6.08 HEMOGLOBIN (BEAKER) (test qwbw=899) 15.0 GM/DL 13.7-17.5 HEMATOCRIT (BEAKER) (test kygt=776) 46.9 % 40.1-51.0 MEAN CORPUSCULAR VOLUME (BEAKER) (test hepw=850) 90.2 fL 79.0-92.2 MEAN CORPUSCULAR HEMOGLOBIN (BEAKER) (test 28.8 pg 25.7-32.2 gdvw=638) MEAN CORPUSCULAR HEMOGLOBIN CONC (BEAKER) (test 32.0 GM/DL 32.3-36.5 cvge=858) RED CELL DISTRIBUTION WIDTH (BEAKER) (test 14.4 % 11.6-14.4 egks=236) PLATELET COUNT (BEAKER) (test ozkb=780) 124 K/CU MM 150-450 MEAN PLATELET VOLUME (BEAKER) (test dutu=656) 9.7 fL 9.4-12.4 NUCLEATED RED BLOOD CELLS (BEAKER) (test 0 /100 WBC 0-0 lnkj=452) NEUTROPHILS RELATIVE PERCENT (BEAKER) (test 76 % qxiy=856) LYMPHOCYTES RELATIVE PERCENT (BEAKER) (test 13 % mckd=873) MONOCYTES RELATIVE PERCENT (BEAKER) (test 8 % aack=665) EOSINOPHILS RELATIVE PERCENT (BEAKER) (test 2 % zmvu=251) BASOPHILS RELATIVE PERCENT (BEAKER) (test 0 % upgm=961) NEUTROPHILS ABSOLUTE COUNT (BEAKER) (test 3.40 K/ L 1.78-5.38 dlry=044) LYMPHOCYTES ABSOLUTE COUNT (BEAKER) (test 0.58 K/ L 1.32-3.57 secd=661) MONOCYTES ABSOLUTE COUNT (BEAKER) (test 0.37 K/ L 0.30-0.82 aerw=461) EOSINOPHILS ABSOLUTE COUNT (BEAKER) (test 0.10 K/ L 0.04-0.54 gqqe=139) BASOPHILS ABSOLUTE COUNT (BEAKER) (test 0.02 K/ L 0.01-0.08 llsg=653) IMMATURE GRANULOCYTES-RELATIVE PERCENT (BEAKER) 0 % 0-1 (test bctf=3190)
[2019-05-30] MEDS ORDERED: ONDANSETRON 4 MG/2 ML VIAL ONE (15:42)
[2019-05-30] MEDS ORDERED: NA CHLORIDE 0.9% 500 ML ONE (15:42)
[2019-05-30 16:19] LABS: Absolute Lymphocytes (CBC) 0.8 K/uL (0.7-4.9); Basophils % 0.6 % (0-1.3); Hematocrit 46.3 % (39.6-49.0); Lymphocytes % 11.8 % (15.3-44.8); MPV 7.6 fL (7.6-11.3)
[2019-05-30 16:30] LABS: Albumin 3.3 g/dL (3.4-5.0); Bilirubin Direct 0.3 mg/dL (0-0.2); Bilirubin Total 0.9 mg/dL (0.2-1.0); Potassium 4.7 mmol/L (3.5-5.1)
--- NOTE | 2019-05-30 17:09 | ER ---
Nurse's Notes [facility] Name: Yoni Shi Age: 78 yrs Sex: Male : 1940 Arrival Date: 05/30/2019 Time: 14:38 Bed 6 Private MD: Judah Rojas R Diagnosis: Nausea and vomiting Presentation: 05/30 14:49 Presenting complaint: Patient states: my stomach has been hurting for several days, tw2 went to my dr and he gave me flagyl, now i am throwing up, i have had trouble with dehydration, the throwing up started just this morning. Transition of care: patient was not received from another setting of care. Onset of symptoms was May 30, 2019. Risk Assessment: Do you want to hurt yourself or someone else? Patient reports no desire to harm self or others. Initial Sepsis Screen: Does the patient meet any 2 criteria? No. Patient's initial sepsis screen is negative. Does the patient have a suspected source of infection? No. Patient's initial sepsis screen is negative. Care prior to arrival: None. 14:49 Method Of Arrival: Ambulatory tw2 14:49 Acuity: LIV 3 tw2 Triage Assessment: 14:51 General: Appears in no apparent distress. slender, well groomed, Behavior is calm, tw2 cooperative, appropriate for age. Pain: Complains of pain in abdomen. GI: Reports nausea, vomiting. Historical: - Allergies: 14:53 Iodinated Contrast Media - IV Dye; tw2 - Home Meds: 14:53 tamsulosin 0.4 mg Oral cp24 1 cap once daily [Active]; metoprolol succinate 25 mg Oral tw2 Tb24 1 tab once daily [Active]; Prograf Oral [Active]; Diltiazem Oral [Active]; allopurinol 100 mg Oral tab 1 tab 2 times per day [Active]; CellCept 250 mg Oral cap 1 caps daily [Active]; sirolimus 1 mg Oral tab 1 tabs once daily [Active]; - PMHx: 14:53 colon cancer; Hypertension; liver transplant; Pulmonary Embolism; Renal Disease; tw2 - PSHx: 14:53 partial colectomy; total colectomy with ileal-pouch; Liver Transplant; Cholecystectomy; tw2 - Immunization history:: Adult Immunizations. - Coronavirus screen:: The patient has NOT traveled to [place] in the past 14 days. - Social history:: Smoking status: . - Ebola Screening: : Patient denies travel to an Ebola-affected area in the 21 days before illness onset. Screenin:00 Abuse screen: Denies threats or abuse. Denies injuries from another. Nutritional jl7 screening: No deficits noted. Tuberculosis screening: No symptoms or risk factors identified. Fall Risk IV access (20 points). Total Barker Fall Scale indicates No Risk (0-24 pts). Assessment: 15:15 General: Appears in no apparent distress. uncomfortable, Behavior is calm, cooperative, jl7 appropriate for age. Pain: Denies pain. Neuro: Level of Consciousness is awake, alert, obeys commands, Oriented to person, place, time, situation. Cardiovascular: Patient's skin is warm and dry. Respiratory: Airway is patent Respiratory effort is even, unlabored, Respiratory pattern is regular, symmetrical. GI: Abdomen is non-distended, Bowel sounds present X 4 quads. Abd is soft and non tender X 4 quads. Reports nausea, vomiting. Derm: Skin is pink, warm \T\ dry. 16:30 Reassessment: Patient appears in no apparent distress at this time. Patient and/or jl7 family updated on plan of care and expected duration. Pain level reassessed. Patient is alert, oriented x 3, equal unlabored respirations, skin warm/dry/pink. Patient states feeling better. Patient states symptoms have improved. 17:00 Reassessment: pt provided with crackers and water, able to keep it down at this time. jl7 ERP notified. Vital Signs: 14:53 BP 146 / 91; Pulse 70; Resp 17; Temp 98.1(O); Pulse Ox 98% on R/A; Weight 82.1 kg (R); tw2 Height 5 ft. 11 in. (180.34 cm); Pain 0/10; 16:00 BP 167 / 90; Pulse 55; Resp 16 S; Pulse Ox 98% on R/A; jl7 17:00 BP 173 / 89; Pulse 66; Resp 17 S; Pulse Ox 98% on R/A; jl7 14:53 Body Mass Index 25.24 (82.10 kg, 180.34 cm) tw2 14:53 but when i am vomiting its a 10/10 tw2 ED Course: 14:38 Patient arrived in ED. rg4 14:38 Judah Rojas MD is Private Physician. rg4 14:50 Triage completed. tw2 14:50 Arm band placed on. tw2 14:56 Travis Dias, MAYLIN is Primary Nurse. jl7 15:00 Patient has correct armband on for positive identification. Placed in gown. Bed in low jl7 position. Call light in reach. Side rails up X 1. radiation monitor on. Pulse ox on. NIBP on. Warm blanket given. 15:15 Ranj[facility] Carpenter [facility]C [facility]. kb 15:15 Hema Head MD is Attending Physician. kb 15:38 Missed attempt(s): 20 gauge in left antecubital area. Bleeding controlled, band aid em applied, catheter tip intact. 15:45 Missed attempt(s): 22 gauge in left forearm. Bleeding controlled, band aid applied, jl7 catheter tip intact. 15:50 Initial lab(s) drawn, by ne, sent to lab. Inserted saline lock: 20 gauge in left jl7 antecubital area, using aseptic technique. Blood collected. 17:08 Judah Rojas MD is Referral Physician. kb 17:19 No provider procedures requiring assistance completed. IV discontinued, intact, jl7 bleeding controlled, No redness/swelling at site. Pressure dressing applied. Administered Medications: 15:55 Drug: NS 0.9% 500 ml Route: IV; Rate: bolus; Site: left antecubital; jl7 16:45 Follow up: Response: No adverse reaction; IV Status: Completed infusion; IV Intake: jl7 500ml 16:03 Drug: Zofran 4 mg Route: IVP; Site: left antecubital; jl7 16:30 Follow up: Response: No adverse reaction; Nausea is decreased jl7 Intake: 16:45 IV: 500ml; Total: 500ml. jl7 Outcome: 17:08 Discharge ordered by . kb 17:19 Discharged to home ambulatory. jl7 17:19 Condition: stable 17:19 Discharge instructions given to patient, family, Instructed on discharge instructions, follow up and referral plans. medication usage, Demonstrated understanding of instructions, follow-up care, medications, Prescriptions given X 1. 17:21 Patient left the ED. jl7 Signatures: Ranjana Carpenter FNP-C FNP-Ckb Garland Benz, RN RN em Lizzie Wong, RN RN tw2 Carri Flowers4 Travis Dias, RN RN jl7
--- NOTE | 2019-05-30 17:09 | EDPHYS ---
Physician Documentation [facility] Name: Yoni Shi Age: 78 yrs Sex: Male : 1940 Arrival Date: 05/30/2019 Time: 14:38 Bed 6 Private MD: Judah Rojas R ED Physician Hema Head HPI: 05/30 15:33 This 78 yrs old Male presents to ER via Ambulatory with complaints of kb Vomiting. 15:33 The patient presents to the emergency department with nausea, vomiting. Onset: The kb symptoms/episode began/occurred this morning. Possible causes: unknown. The symptoms are aggravated by nothing. The symptoms are alleviated by nothing. Associated signs and symptoms: Pertinent positives: nausea, vomiting. Severity of symptoms: At their worst the symptoms were moderate in the emergency department the symptoms are unchanged. The patient has experienced similar episodes in the past. The patient has been recently seen by a physician: the patient's primary care provider, Dr. rojas yesterday. Pt reports he has had nausea for a long time, but yesterday he had some abd pain so he saw Dr Rojas and was put on flagyl. States the pain was gone this morning, but he has been vomiting since 1000. Came in to see if he was dehydrated. States "my normal creatinine is 1.7-2.4 and I want to see what it is now to see if I'm dehydrated". Historical: - Allergies: 14:53 Iodinated Contrast Media - IV Dye; tw2 - Home Meds: 14:53 tamsulosin 0.4 mg Oral cp24 1 cap once daily [Active]; metoprolol succinate 25 mg Oral tw2 Tb24 1 tab once daily [Active]; Prograf Oral [Active]; Diltiazem Oral [Active]; allopurinol 100 mg Oral tab 1 tab 2 times per day [Active]; CellCept 250 mg Oral cap 1 caps daily [Active]; sirolimus 1 mg Oral tab 1 tabs once daily [Active]; - PMHx: 14:53 colon cancer; Hypertension; liver transplant; Pulmonary Embolism; Renal Disease; tw2 - PSHx: 14:53 partial colectomy; total colectomy with ileal-pouch; Liver Transplant; Cholecystectomy; tw2 - Immunization history:: Adult Immunizations. - Coronavirus screen:: The patient has NOT traveled to [place] in the past 14 days. - Social history:: Smoking status: . - Ebola Screening: : Patient denies travel to an Ebola-affected area in the 21 days before illness onset. ROS: 15:33 Constitutional: Negative for fever, chills, and weight loss, Cardiovascular: Negative kb for chest pain, palpitations, and edema, Respiratory: Negative for shortness of breath, cough, wheezing, and pleuritic chest pain, Back: Negative for injury and pain, : Negative for injury, bleeding, discharge, and swelling, MS/Extremity: Negative for injury and deformity, Skin: Negative for injury, rash, and discoloration, Neuro: Negative for headache, weakness, numbness, tingling, and seizure. 15:33 Abdomen/GI: Positive for nausea and vomiting. Exam: 15:33 Constitutional: This is a well developed, well nourished patient who is awake, alert, kb and in no acute distress. Head/Face: Normocephalic, atraumatic. ENT: Nares patent. No nasal discharge, no septal abnormalities noted. Tympanic membranes are normal and external auditory canals are clear. Oropharynx with no redness, swelling, or masses, exudates, or evidence of obstruction, uvula midline. Mucous membranes moist. Neck: Trachea midline, no thyromegaly or masses palpated, and no cervical lymphadenopathy. Supple, full range of motion without nuchal rigidity, or vertebral point tenderness. No Meningismus. Chest/axilla: Normal chest wall appearance and motion. Nontender with no deformity. No lesions are appreciated. Cardiovascular: Regular rate and rhythm with a normal S1 and S2. No gallops, murmurs, or rubs. Normal PMI, no JVD. No pulse deficits. Respiratory: Lungs have equal breath sounds bilaterally, clear to auscultation and percussion. No rales, rhonchi or wheezes noted. No increased work of breathing, no retractions or nasal flaring. Abdomen/GI: Soft, non-tender, with normal bowel sounds. No distension or tympany. No guarding or rebound. No evidence of tenderness throughout. Back: No spinal tenderness. No costovertebral tenderness. Full range of motion. Skin: Warm, dry with normal turgor. Normal color with no rashes, no lesions, and no evidence of cellulitis. MS/ Extremity: Pulses equal, no cyanosis. Neurovascular intact. Full, normal range of motion. Neuro: Awake and alert, GCS 15, oriented to person, place, time, and situation. Cranial nerves II-XII grossly intact. Motor strength 5/5 in all extremities. Sensory grossly intact. Cerebellar exam normal. Normal gait. Vital Signs: 14:53 BP 146 / 91; Pulse 70; Resp 17; Temp 98.1(O); Pulse Ox 98% on R/A; Weight 82.1 kg (R); tw2 Height 5 ft. 11 in. (180.34 cm); Pain 0/10; 16:00 BP 167 / 90; Pulse 55; Resp 16 S; Pulse Ox 98% on R/A; jl7 17:00 BP 173 / 89; Pulse 66; Resp 17 S; Pulse Ox 98% on R/A; jl7 14:53 Body Mass Index 25.24 (82.10 kg, 180.34 cm) tw2 14:53 but when i am vomiting its a 10/10 tw2 MDM: 15:16 Patient medically screened. kb 15:33 Data reviewed: vital signs, nurses notes. Data interpreted: Pulse oximetry: on room air kb is 98 %. Interpretation: normal. 16:42 ED course: pt educated on diagnostic findings. Pt still concerned about what caused his kb symptoms. Offered to do CT to check for any infectious process. Pt is afebrile, pain free, nontender on exam. Pt does not want the CT at this time. Will return for that if pain returns or if fever begins.. 16:43 Counseling: I had a detailed discussion with the patient and/or guardian regarding: the kb historical points, exam findings, and any diagnostic results supporting the discharge/admit diagnosis, lab results, the need for outpatient follow up, a family practitioner, to return to the emergency department if symptoms worsen or persist or if there are any questions or concerns that arise at home. 05/30 15: Order name: CBC with Diff; Complete Time: 16:26 kb 05/30 15: Order name: Basic Metabolic Panel; Complete Time: 16:33 kb 05/30 15:26 Order name: Hepatic Function; Complete Time: 16:33 kb 05/30 15: Order name: Lipase; Complete Time: 16:33 kb 05/30 15:26 Order name: IV Saline Lock; Complete Time: 16:02 kb 05/30 15:26 Order name: Labs collected and sent; Complete Time: 16:02 kb 05/30 16:41 Order name: PO challenge; Complete Time: 17:04 kb Administered Medications: 15:55 Drug: NS 0.9% 500 ml Route: IV; Rate: bolus; Site: left antecubital; jl7 16:45 Follow up: Response: No adverse reaction; IV Status: Completed infusion; IV Intake: jl7 500ml 16:03 Drug: Zofran 4 mg Route: IVP; Site: left antecubital; jl7 16:30 Follow up: Response: No adverse reaction; Nausea is decreased jl7 Disposition: 05/31 08:47 Co-signature as Attending Physician, Hema Head MD I agree with the assessment and kdr plan of care. Disposition: 05/30/19 17:08 Discharged to Home. Impression: Nausea and vomiting. - Condition is Stable. - Discharge Instructions: Nausea and Vomiting, Adult, [id number]. - Prescriptions for Zofran ODT 4 mg Oral tablet,disintegrating - take 1 tablet by ORAL route every 6 hours; 20 tablet. - Medication Reconciliation Form, Thank You Letter, Antibiotic Education, Prescription Opioid Use form. - Follow up: Emergency Department; When: As needed; Reason: Worsening of condition. Follow up: Judah Rojas; When: 2 - 3 days; Reason: Recheck today's complaints, Continuance of care, Re-evaluation by your physician. Signatures: Dispatcher [employer] EDND Ranjana Carpenter, [employer]-C [employer]-Hema Solitario MD MD kdr Wise, Tara RN RN tw2 Travis Dias RN RN jl7 Corrections: (The following items were deleted from the chart) 05/30 17:21 17:08 05/30/2019 17:08 Discharged to Home. Impression: Nausea and vomiting. Condition jl7 is Stable. Discharge Instructions: Nausea and Vomiting, Adult, [id number]. Prescriptions for Zofran ODT 4 mg Oral tablet,disintegrating - take 1 tablet by ORAL route every 6 hours; 20 tablet. and Forms are Medication Reconciliation Form, Thank You Letter, Antibiotic Education, Prescription Opioid Use. Follow up: Emergency Department; When: As needed; Reason: Worsening of condition. Follow up: Judah Rojas; When: 2 - 3 days; Reason: Recheck today's complaints, Continuance of care, Re-evaluation by your physician. kb
[2019-05-30 17:49] VITALS: TEMP 98.1; O2SAT 98
[2019-05-30 17:51] VITALS: BP 173/89
== END 2019-05-30 17:21 | disposition home or self-care (01) ==
LOC: ER 14:35
DX: R11.2 Nausea with vomiting, unspecified (principal); Z94.4 Liver transplant status; I10 Essential (primary) hypertension; Z85.038 Personal history of other malignant neoplasm of large intestine; Z91.048 Other nonmedicinal substance allergy status
CPT/HCPCS: 96361; 85025; 80048; 36415; 80076; 83690; 96374; 99284; J7040; J2405

== ENCOUNTER 2019-10-11 09:47 | Day surgery (SDC) | payer OTHER ==
--- OUTSIDE RECORDS SUMMARY | 2019-10-11 10:50 | XMS REPORT | Clinical Summary ---
:1940 Author Organization [facility] Address [address] [place] [address] Care Team Providers Name Role Phone Jad Rizo Primary Care Provider Unavailable Allergies Active Allergy Reactions Severity Noted Date Comments Iodine And Iodide Containing Products Hives Medications Medication Sig Dispensed Refills Start Date End Date Status multivitamin capsule Take 1 capsule 0 Active by mouth daily. metoprolol Take 50 mg by 0 Activ e (TOPROL-XL) 50 MG 24 mouth 2 (two) hr tablet times daily. folic acid (FOLVITE) Take 400 mcg 0 Active 400 MCG tablet by mouth daily . lisinopril Take 2.5 mg by 0 Acti ve (PRINIVIL,ZESTRIL) mouth as 2.5 MG needed (if BP tabletIndications: elevated as high blood pressure per nephrology)) . cyanocobalamin, Place 1 tablet 0 Active vitamin B-12, under the (VITAMIN B-12) 1,000 tongue. mcg Subl omega-3 fatty Take 1 g by 0 Acti ve acids-fish oil mouth daily. 340-1,000 mg Cap per capsule allopurinol Take 100 mg by 0 Act alison (ZYLOPRIM) 100 MG mouth daily . tablet travoprost (TRAVATAN Place 1 drop 0 Active Z) 0.004 % Drop into both eyes ophthalmic drops nightly. rivaroxaban Take 15 mg by 0 Acti ve (XARELTO) 15 mg Tab mouth daily as tablet needed Take only when traveling on airplane. . VIT A/VIT C/VIT Take 1 capsule 0 Active E/ZINC/COPPER (ICAPS by mouth daily AREDS ORAL) A-Red capsule daily. . timolol (BETIMOL) Place 1-2 0 Ac tive 0.25 % ophthalmic drops into solution both eyes 2 (two) times daily. doxazosin (CARDURA) Take 2 mg by 0 Active 2 MG tablet mouth daily. sirolimus (RAPAMUNE) TAKE 1 TABLET 90 tablet 3 05/22/2019 Active 1 MG tablet BY MOUTH DAILY mycophenolate TAKE ONE 180 capsule 3 05/22/2019 Act alison (CELLCEPT) 250 mg CAPSULE BY capsuleIndications: MOUTH TWICE Status post liver DAILY transplantation (HCC) cycloSPORINE Place 1 drop 0 05/21/19 Disc ontinued (RESTASIS) 0.05 % into both eyes 20 ophthalmic emulsion every 12 (twelve) hours. 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 Ulcerative colitis 10/13/2014 Last Assessment & Plan: He had ulcerative colitis s/p colectomy with J-pouch. We have referred him to a [facility] IBD specialist. Chronic renal insufficiency 10/13/2014 Last Assessment & Plan: He is followed by Dr. 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 Continue follow-up. 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 Synthetic function of the allograft is well preserved. HTN (hypertension) 09/26/2013 Last Assessment & Plan: Blood pressures elevated. Patient has fo llow-up with Dr. Taylor. Diabetes 09/26/2013 Last Assessment & Plan: Well controlled on current regimen. Immunosuppression 09/26/2013 Last Assessment & Plan: He is on sirolimus and Cellcept. Screening for skin cancer 09/26/2013 Last Assessment & Plan: Patient has regular follow up with a khoa matologist to evaluate and biopsy abnormal skin lesions. Screening for rectal cancer 09/26/2013 Last Assessment & Plan: Patient has regular surveillance. He see s Dr. Wilcox. He is due for sigmoidoscopy this upcoming year. Resolved Problems Problem Noted Date Resolved Date Choledocholithiasis 04/24/2019 04/25/2019 Encounters Date Type Specialty Care Team Description 08/27/2019 Orders Only Hepatology Dontrell Suggs MD 05/22/2019 Refill Transplant Hepatology Trenton Galvan Status post liver Miguel Villegas MD transplantation (HCC) 05/21/2019 Follow-Up Transplant Hepatology Teagan Brian [facility] post liver transplantation (HCC) (Primary Dx); MD Vivek Chronic renal impairment, stage 2 (mild) ; Ifeanyi, Immunosuppressi on (HCC); Dontrell Dubon MD Screening for s kin cancer; Ulcerative panc olitis without complication (HCC) 05/07/2019 Telephone Transplant Hepatology neha Sullivan 05/02/2019 Orders Only Transplant Hepatology Trenton Galvan Jr., MD 04/29/2019 Documentation Transplant Hepatology Shira Sullivan 04/24/2019 Anesthesia Event Gastroenterology Adebayo Callahan CRNA 04/24/2019 Surgery Gastroenterology Pam, ERCP,PAPILL OTOMY Zayra Juarez MD 04/24/2019 Hospital Encounter Transplant Monique-Davidmann Choledo cholithiasis; - , MD Jayden Elevated liver enzymes; 04/25/2019 Isaias, Elevated alkali ne phosphatase level; Maribell S/P liver trans plant (HCC); MD Kathi Immunosuppressi on (HCC); Screening for s kin cancer; Screening for m alignant neoplasm; Serum total jagdeep irubin elevated; Chronic renal i mpairment, unspecified CKD stage; Ulcerative coli tis with complication, unspecified location (HCC) 01/24/2019 Follow-Up Transplant Hepatology Teagan Brian MD 01/17/2019 Telephone Transplant Hepatology neha Sullivan 01/14/2019 Orders Only Transplant Hepatology Trenton Galvan Jr., MD 10/10/2018 Telephone Transplant Hepatology neha Sullivan after 10/10/2018 Family History Medical History Relation Name Comments Liver cancer Mother Relation Name Status Comments Mother Social History Tobacco Use Types Packs/Day Years Used Date Never Smoker Smokeless Tobacco: Never Used Alcohol Use Drinks/Week oz/Week Comments No Sex Assigned at Date Recorded Not on file Job Start Date Occupation Industry Not on file Not on file Not on file Travel History Travel Start Travel End No recent travel history available. Last Filed Vital Signs Vital Sign Reading Time Taken Blood Pressure 168/98 05/21/2019 10:33 AM [facility] [facility] Pulse 58 05/21/2019 10:33 AM [employer] Temperature 36.4 C (97.6 F) 05/21/2019 10:33 AM [employer] [facility] Respiratory Rate 18 05/21/2019 10:33 AM [employer] Oxygen Saturation 98% 05/21/2019 10:33 AM [employer] Inhaled Oxygen Concentration - - Weight 82.9 kg (182 lb 11.2 oz) 05/21/2019 10:3 3 AM [employer] [facility] Height 177.8 cm (5' 10") 05/21/2019 10:33 AM [employer] Body Mass Index 26.21 05/21/2019 10:33 AM [employer] [facility] Plan of Treatment Date Type Specialty Care Team Description 05/19/2020 Follow-Up Transplant Hepatology Health Maintenance Due Date Last Done Comments DIABETIC EYE EXAM 1950 DIABETIC FOOT EXAM 1950 PNEUMOCOCCAL 65+ HIGH/HIGHEST RISK (1 of 2 - PCV13) 12/25/2007 HEMOGLOBIN A1C 09/26/2013 MEDICARE ANNUAL WELLNESS (YEAR 2 or FIRST YEAR if no 12/10/2013 IPPE) INFLUENZA VACCINE (Season Ended) 2019 Procedures Procedure Name Priority Date/Time Associated Diagnosis Comme nts HEPATITIS A ANTIBODY, Routine 08/27/2019 10:37 Re sults for this TOTAL AM CDT procedure are i n the results section. HEPATITIS B SURFACE Routine 08/27/2019 10:37 Resu lts for this ANTIBODY AM CDT procedure are i n the results section. SIROLIMUS LEVEL Routine 05/02/2019 8:15 Results for this AM [employer] [facility] procedure are i n the results section. CBC W/PLT COUNT & Routine 05/02/2019 8:15 Result s for this AUTO DIFFERENTIAL AM [employer] [facility] procedure are in the results section. HEPATIC FUNCTION Routine 05/02/2019 8:15 Results for this PANEL AM [employer] [facility] procedure are i n the results section. BASIC METABOLIC PANEL Routine 05/02/2019 8:15 Re sults for this (7) AM [employer] procedure are i n the results section. MAGNESIUM Routine 05/02/2019 8:15 Results for this AM [employer] procedure are i n the results section. REPORT OF PROCEDURE - 04/25/2019 9:40 ENDOSCOPY URL AM [employer] SIROLIMUS LEVEL Routine 04/25/2019 5:30 Results for this AM [employer] procedure are i n the results section. CBC (HEMOGRAM ONLY) Routine 04/25/2019 5:30 Resu lts for this AM [employer] procedure are i n the results section. BASIC METABOLIC PANEL Routine 04/25/2019 5:30 Re sults for this (7) AM [employer] procedure are i n the results section. HEPATIC FUNCTION Routine 04/25/2019 5:30 Results for this PANEL AM [employer] procedure are i n the results section. US ABDOMEN COMPLETE CHERIE 04/25/2019 12:50 Resu lts for this AM [employer] procedure are i n the results section. FL ERCP Routine 04/24/2019 5:15 Results for this PM [employer] [facility] procedure are i n the results section. ERCP,BALLOON SWEEPING 04/24/2019 4:00 Choledochitis PM [employer] [facility] Special Needs ercp w/ anes and fluoro ERCP,BALLOON DILATATION 04/24/2019 4:00 PM [employer] Choled ochitis Special Needs ercp w/ anes and fluoro PROCEDURE W/ C-ARM 04/24/2019 4:00 PM [employer] Choledochit is Special Needs ercp w/ anes and fluoro ERCP,PAPILLOTOMY 04/24/2019 4:00 PM [employer] Choledochitis Special Needs ercp w/ anes and fluoro RAPID INFLUENZA A&B SCREEN STAT 04/24/2019 1:36 PM [employer] Results for this procedure are i n the results section . RESPIRATORY PANEL SLHS Routine 04/24/2019 1:30 PM [employer] Results for this procedure are i n the results section . BLOOD CULTURE Routine 04/24/2019 9:07 AM [employer] [facility] Res ults for this procedure are i n the results section . BLOOD CULTURE Routine 04/24/2019 9:07 AM [employer] [facility] Res ults for this procedure are i n the results section . CBC W/PLT COUNT & AUTO Routine 04/24/2019 6:12 AM [employer] Results for this DIFFERENTIAL procedure are i n the results section . SIROLIMUS LEVEL Routine 04/24/2019 6:12 AM [employer] R esults for this procedure are i n the results section . HEPATIC FUNCTION PANEL Routine 04/24/2019 6:12 AM [employer] Results for this procedure are i n the results section . BASIC METABOLIC PANEL (7) Routine 04/24/2019 6:12 AM [employer] Results for this procedure are i n the results section . PROTHROMBIN TIME/INR Routine 04/24/2019 6:12 AM [employer] Results for this procedure are i n the results section . CBC W/PLT COUNT & AUTO Routine 04/24/2019 6:12 AM [employer] Results for this DIFFERENTIAL procedure are i n the results section . SIROLIMUS LEVEL Routine 01/14/2019 9:49 AM CDT R esults for this procedure are i n the results section . CBC W/PLT COUNT & AUTO Routine 01/14/2019 9:49 AM CDT Results for this DIFFERENTIAL procedure are i n the results section . HEPATIC FUNCTION PANEL Routine 01/14/2019 9:49 AM CDT Results for this procedure are i n the results section . BASIC METABOLIC PANEL (7) Routine 01/14/2019 9:49 AM CDT Results for this procedure are i n the results section . MAGNESIUM Routine 01/14/2019 9:49 AM CDT Resu lts for this procedure are i n the results section . after 10/10/2018 Results Hepatitis A antibody, total (08/27/2019 10:37 AM CDT) Hep A Ab, Total NON-REACTIVE NON-REACTIVE [facility] Comment: For additional information, please refer to http://[employer]/faq/XRG740 (This link is being provided for informational/ educational purposes only.) Specimen Narrative Performed At AN UPDATE OR CORRECTION HAS BEEN MADE TO NAME tenXer Resulting Agency Comment Performing Organization Information: Site ID: [id number] Name: [facility] Address: [address] [place] [phone] Director: Gavin Shaw Performing Organization Address City/State/Zipcode Phone Number [facility] [address] [place] [address] [facility] Hepatitis B surface antibody (08/27/2019 10:37 AM CDT) Hep B S Ab <5 (L) > OR = 10 mIU/mL [facility] Comment: Patient does not have immunity to hepatitis B vi marcos. For additional information, please refer to http://[employer]/faq/DUR257 (This link is being provided for informational/ educational purposes only). Specimen Narrative Performed At AN UPDATE OR CORRECTION HAS BEEN MADE TO NAME tenXer Resulting Agency Comment Performing Organization Information: Site ID: [id number] Name: [facility] Address: [address] [place] [address] Director: Dr. Gavin mccormick Performing Organization Address [facility] Cent[facility]ode Phone Number [facility] [address] [place] [address] [facility] Sirolimus level (05/02/2019 8:15 AM [employer])Only the most recent of4 resultswithin the time period is included. Rapamycin Trough 3.4 3.0 - 18.0 ng/mL [facility] Comment: This test was developed and its analytical perfo rmance characteristics have been determined by [employer]. It has not been cleared or approved by the FDA. This assay has been validated pursuant to t CLIA regulations and is used for clinical purposes. Specimen Narrative Performed At FASTING:YES [facility] FASTING: YES Resulting Agency Comment Performing Organization Information: Site ID: [id number] Name: [employer] Address: [address] [place] [address] Director: Gulshan Lcoo M.D., P h.D Performing Organization Address [facility] Medical Centercode Phone Number [facility] [address] [place] [address] [facility] CBC with platelet count + automated diff (05/02/2019 8:15 AM [employer])Only the most recent of2 resultswithin the time period is included. WBC 5.4 3.8 - 10.8 Thousand/uL [facility] RBC 4.93 4.20 - 5.80 Million/uL [facility] Hemoglobin 14.4 13.2 - 17.1 g/dL [facility] Hematocrit 42.3 38.5 - 50.0 % [facility] MCV 85.8 80.0 - 100.0 fL [facility] MCH 29.2 27.0 - 33.0 pg [facility] MCHC 34.0 32.0 - 36.0 g/dL [facility] RDW 13.5 11.0 - 15.0 % [facility] Platelets 237 140 - 400 Thousand/uL [facility] MPV 9.6 7.5 - 12.5 fL [facility] # Neutros 3,418 1,500 - 7,800 cells/uL [facility] # Lymphs 1,323 850 - 3,900 cells/uL [facility] # Monos 518 200 - 950 cells/uL [facility] # Eos 108 15 - 500 cells/uL [facility] # Baso 32 0 - 200 cells/uL [facility] % Neutros 63.3 % [facility] % Lymphs 24.5 % [facility] % Monos 9.6 % [facility] % Eos 2.0 % [facility] % Baso 0.6 % [facility] Specimen Narrative Performed At FASTING:YES [facility] FASTING: YES Resulting Agency Comment Performing Organization Information: Site ID: [id number] Name: [facility] Address: [address] [place] [phone] Director: Gavin Shaw Performing Organization Address [facility] Centercotn Phone Number [facility] [address] [place] [address] [facility] Magnesium (05/02/2019 8:15 AM [employer])Only the most recent of2 resultswithin the time period is included. Magnesium, Serum 1.8 1.5 - 2.5 mg/dL [facility] Specimen Narrative Performed At FASTING:YES [facility] FASTING: YES Resulting Agency Comment Performing Organization Information: Site ID: [id number] Name: [facility] Address: [address] [place] [id number] Director: Gavin Shaw Performing Organization Address [facility]ercotn Phone Number [facility] [address] [place] [address] [facility] Hepatic function panel (05/02/2019 8:15 AM [employer])Only the most recent of4 results within the time period is included. Protein, Total, Serum 6.1 6.1 - 8.1 g/dL [facility] Albumin 3.6 3.6 - 5.1 g/dL [facility] GLOBULIN (QUEST) 2.5 1.9 - 3.7 g/dL (calc) [facility] Albumin Globulin Ratio 1.4 1.0 - 2.5 (calc) [facility] Bilirubin, Total 0.8 0.2 - 1.2 mg/dL [facility] Bilirubin, Direct 0.3 (H) < OR = 0.2 mg/dL [facility] Bilirubin, Indirect 0.5 0.2 - 1.2 mg/dL (calc) [facility] Alkaline Phosphatase, S 77 40 - 115 U/L [facility] AST (SGOT) 22 10 - 35 U/L [facility] ALT (SGPT) 37 9 - 46 U/L [facility] Specimen Narrative Performed At FASTING:YES [facility] FASTING: YES Resulting Agency Comment Performing Organization Information: Site ID: [id number] Name: [facility] Address: [address] [place] [phone] Director: Gavin Shaw Performing Organization Address [facility] Centercode Phone Number [facility] [address] [place] [address] [facility] Basic Metabolic Panel (05/02/2019 8:15 AM [employer])Only the most recent of4 results within the time period is included. Glucose 93 65 - 99 mg/dL [facility] Comment: Fasting reference interval BUN 27 (H) 7 - 25 mg/dL [facility] Creatinine 2.01 (H) 0.70 - 1.18 mg/dL [facility] Comment: For patients >49 years of age, the reference galloway it for Creatinine is approximately 13% higher for p eople identified as -Trinidadian. eGFR If NonAfricn Am 31 (L) > OR = 60 [facility] mL/min/1.73m2 eGFR If Africn Am 36 (L) > OR = 60 [facility] mL/min/1.73m2 BUN/Creatinine Ratio 13 6 - 22 (calc) [facility] Sodium 144 135 - 146 mmol/L [facility] Potassium, Serum 4.4 3.5 - 5.3 mmol/L [facility] Chloride 111 (H) 98 - 110 mmol/L [facility] Carbon Dioxide, Total 26 20 - 32 mmol/L [facility] Calcium, Serum 8.9 8.6 - 10.3 mg/dL [facility] Specimen Narrative Performed At FASTING:YES [facility] FASTING: YES Resulting Agency Comment Performing Organization Information: Site ID: [id number] Name: [facility] Address: [address] [place] [phone] Director: Gavin Shaw Performing Organization Address [facility] Centercode Phone Number [facility] [address] [place] [address] [facility] REPORT OF PROCEDURE - ENDOSCOPY URL (04/25/2019 9:40 AM [employer]) Narrative Performed At This result has an attachment that is no t available. CBC (Hemogram only) (04/25/2019 5:30 AM [employer]) WBC 5.3 3.5 - 10.5 K/L [facility] RBC 4.67 4.63 - 6.08 M/L [facility] Hemoglobin 13.8 13.7 - 17.5 GM/DL [facility] Hematocrit 41.7 40.1 - 51.0 % [facility] MCV 89.3 79.0 - 92.2 fL [facility] MCH 29.6 25.7 - 32.2 pg [facility] MCHC 33.1 32.3 - 36.5 GM/DL [facility] RDW 14.3 11.6 - 14.4 % [facility] Platelets 109 (L) 150 - 450 K/CU MM [facility] MPV 9.6 9.4 - 12.4 fL [facility] nRBC 0 0 - 0 /100 WBC [facility] Specimen Blood Performing Organization Address City/State/Zipcode Phone Number [facility] [address] [place] [address] CENTER US abdomen complete (04/25/2019 12:50 AM [employer]) Specimen Narrative Performed At FINAL REPORT [facility] INDICATION: elevated liver enzymes, s/p liver transplant in 1998, concern for choldocholithiasis COMPARISON: None TECHNIQUE: Real-time millard-scale transabd ominal and color and spectral Doppler ultrasound. FINDINGS: Liver: Size: 14.3cm. Echogenicity: Normal. Masses/lesions: None. Surface Nodularity: None. Intrahepatic bile ducts: Normal . Common bile duct: 0.7cm. MPV: 1.2cm. Gallbladder: Surgically absent. Pancreas: Head and uncinate process: Not well-seen secondary to poor acoustic windowing.. Body and tail: Not well-seen. Spleen: Size: 12.2cm. Echogenicity: Unremarkable. Right kidney: Size: 12.1 x 5.9 x 5.0 cm. Parenchyma: Increased echogenicity.. Interpol e cyst measuring up to 1.7 cm.. No stones. Hydronephrosis: None. Left kidney: Size: 8.4 x 3.6 x 3.0 cm. Parenchyma: Increased echogenicity.. No cysts . 0.9 cm echogenic focus in the lower pole favored to repre sent nephrolithiasis.. Hydronephrosis: None. Ascites: None. Regional Vasculature: The visible abdomi nal aorta, IVC and hepatic veins are patent. Proximal aorta measure s 2.6 cm, midportion measures 2.5 cm, distally not well-seen secondary to poor acoustic windowing. Color and Spectral imaging: MPV: Diameter: 1.2 Flow: Hepatopedal. Velocity: 38.3 cm/sec Filling defects: None Left and right portal veins: Patent. Flow: Antegrade Filling defects: None. Hepatic arteries: Patent RI proper hepatic: 0.7 RI right hepatic: 0.7 RI left hepatic: 0.6 IVC, Hepatic venous confluence, right HV , middle HV and left HV are patent. Additional findings: None. IMPRESSION: Postsurgical changes of an orthotopic li pricilla transplant with unremarkable sonographic appearance of t he transplant liver. Postsurgical changes of a cholecystectom y. Increased bilateral renal parenchymal ec hogenicity, nonspecific however can be seen with medical renal d isease. Left nephrolithiasis however no hydronep hrosis. Unremarkable hepatic Doppler examination . Signed: Maribell Alexis MD Report Verified Date/Time:04/25/2019 03:49:02 Procedure Note Interface, External Ris In - 04/25/2019 3:52 AM [employer] FINAL REPORT INDICATION: elevated liver enzymes, s/p liver transplant in 1998, concern for choldocholithiasis COMPARISON: None TECHNIQUE: Real-time millard-scale transabd ominal and color and spectral Doppler ultrasound. FINDINGS: Liver: Size: 14.3cm. Echogenicity: Normal. Masses/lesions: None. Surface Nodularity: None. Intrahepatic bile ducts: Normal. Common bile duct: 0.7cm. MPV: 1.2cm. Gallbladder: Surgically absent. Pancreas: Head and uncinate process: Not well -seen secondary to poor acoustic windowing.. Body and tail: Not well-seen. Spleen: Size: 12.2cm. Echogenicity: Unremarkable. Right kidney: Size: 12.1 x 5.9 x 5.0 cm. Parenchyma: Increased echogenicity. . Interpole cyst measuring up to 1.7 cm.. No stones. Hydronephrosis: None. Left kidney: Size: 8.4 x 3.6 x 3.0 cm. Parenchyma: Increased echogenicity. . No cysts. 0.9 cm echogenic focus in the lower pole favored to repre sent nephrolithiasis.. Hydronephrosis: None. Ascites: None. Regional Vasculature: The visible abdomi nal aorta, IVC and hepatic veins are patent. Proximal aorta measure s 2.6 cm, midportion measures 2.5 cm, distally not well-seen secondary to poor acoustic windowing. Color and Spectral imaging: MPV: Diameter: 1.2 Flow: Hepatopedal. Velocity: 38.3 cm/sec Filling defects: None Left and right portal veins: Patent. Flow: Antegrade Filling defects: None. Hepatic arteries: Patent RI proper hepatic: 0.7 RI right hepatic: 0.7 RI left hepatic: 0.6 IVC, Hepatic venous confluence, right HV , middle HV and left HV are patent. Additional findings: None. IMPRESSION: Postsurgical changes of an orthotopic li pricilla transplant with unremarkable sonographic appearance of t he transplant liver. Postsurgical changes of a cholecystectom y. Increased bilateral renal parenchymal ec hogenicity, nonspecific however can be seen with medical renal d isease. Left nephrolithiasis however no hydronep hrosis. Unremarkable hepatic Doppler examination . Signed: Maribell Alexis MD Report Verified Date/Time: 04/25/2019 0 3:49:02 Performing Organization Address City/State/Zipcode Phone Number [facility] [place] ERCP (04/24/2019 5:15 PM [employer]) Specimen Narrative Performed At FINAL REPORT [facility] A fluoroscopic unit was utilized for a p rocedure performed in the operating room. No interpretation was re quested. Please refer to the operative report regarding findings. Ple ase refer to PACS for patient radiation dose information. Signed: Romeo Purdy MD Report Verified Date/Time:04/24/2019 17:59:55 Reading Location: [facility] C013W Consult [facility] Procedure Note Interface, External Ris In - 04/24/2019 6:02 PM COMPLEX COMMERCIAL LITIGATION [place] FINAL REPORT A fluoroscopic unit was utilized for a p rocedure performed in the operating room. No interpretation was re quested. Please refer to the operative report regarding findings. Ple ase refer to PACS for patient radiation dose information. Signed: Romeo Purdy MD Report Verified Date/Time: 04/24/2019 1 7:59:55 Reading Location: [facility] B1 C013W Consult [facility] Performing Organization Address City/State/Zipcode Phone Number RIS Rapid Influenza A&B Screen (04/24/2019 1:36 PM COMPLEX COMMERCIAL LITIGATION [place]) Rapid Influenza A Antigen Negative Negative, Inconclusive [facility] Rapid influenza B Antigen Negative Negative, Inconclusive [facility] Specimen Nasal Performing Organization Address City/[facility]/Zipcode Phone Number [address] [address] CENTER Respiratory Panel SL (04/24/2019 1:30 PM COMPLEX COMMERCIAL LITIGATION [place]) Human Metapneumovirus Not detected Not detected, [facility] Rhinovirus Not detected Not detected, [facility] Influenza A Not detected Not detected, [facility] INFLUENZA A (NO SUBTYPE) [facility] Influenza A subtype H1 [facility] Influenza A [facility]type H3 [facility] Influenza A Subtype H1-2009 [facility] Influenza B Not detected Not detected, [facility] Respiratory Syncytial Virus Not detected Not detected, [facility] Equ[facility]ocal [facility] Parainfluenza Virus 1 Not detected Not detected, [facility] Parainfluenza Virus 2 Not detected Not detected, [facility] Parainfluenza virus 3 Not detected Not detected, [facility] Parainfluenza Virus 4 Not detected Not detected, [facility] Adenovirus Not detected Not detected, [facility] Coronavirus 229E Not detected Not detected, [facility] Coronavirus HKU1 Not detected Not detected[facility] Coronavirus NL63 Not detected Not detected, [facility]ocal [facility] Coronavirus OC43 Not detected Not detected, [facility]ocal [facility] Bordetella Pertussis Not detected Not detected, [facility] Equivocal [facility] Chlamydophila Pneumoniae Not detected Not detected, [facility] Equ[facility]ocal [facility] Mycoplasma Pneumoniae Not detected Not detected, [facility] Specimen Nasopharyngeal Narrative Performed At Other viruses and bacteria not targeted by [facility] this PCR panel cannot be excluded; therefore clinical correlation and follow up of serology, culture results, and other molecular studies is required. The results are not intended to be used as the sole means for clinical diagnosis or patient management decisions. This sample was tested at the [facility] using the [employer] FilmArray Respiratory Panel. It is FDA cleared and has been verified and approved by the [facility] for clinical use on nasopharyngeal swab specimens. The performance of the FilmArray RP has not been established in individuals who received influenza vaccine.Recent administration of a nasal influenza vaccine may cause false positive results for Influenza A and/or Influenza B. Performing Organization Address City/State/Zipcode Phone Number [facility] [address], [place] [id number] [place] Blood Culture - Routine (Left Venipuncture) (04/24/2019 9:07 AM COMPLEX COMMERCIAL LITIGATION [place])Only the most recent of2 resultswithin the time period is included. Result No growth in 5 days [facility] Specimen Blood Performing Organization Address City/State/Zipcode Phone Number [facility] [address] [place] [address] [place] CBC with platelet count + automated diff (04/24/2019 6:12 AM COMPLEX COMMERCIAL LITIGATION [place]) WBC 4.5 3.5 - 10.5 K/L [facility] RBC 5.20 4.63 - 6.08 M/L [facility] Hemoglobin 15.0 13.7 - 17.5 GM/DL [facility] Hematocrit 46.9 40.1 - 51.0 % [facility] MCV 90.2 79.0 - 92.2 fL [facility] MCH 28.8 25.7 - 32.2 pg [facility] MCHC 32.0 (L) 32.3 - 36.5 GM/DL [facility] RDW 14.4 11.6 - 14.4 % [facility] Platelets 124 (L) 150 - 450 K/CU MM [facility] MPV 9.7 9.4 - 12.4 fL [facility] nRBC 0 0 - 0 /100 WBC [facility] % Neutros 76 % [facility] % Lymph[facility] 13 % [facility] % Monos 8 % [facility] % Eos 2 % [facility] % Baso 0 % [facility] # Neutros 3.40 1.78 - 5.38 K/L [facility] # Lymphs 0.58 (L) 1.32 - 3.57 K/L [facility] # Monos 0.37 0.30 - 0.82 K/L [facility] # Eos 0.10 0.04 - 0.54 K/L [facility] # Baso 0.02 0.01 - 0.08 K/L [facility] Immature Granulocytes-Relative 0 0 - 1 % C [facility] Specimen Blood Performing Organization Address City/[facility] Phone Number [facility] [address] [place] [address] [place] Prothrombin time/INR (04/24/2019 6:12 AM COMPLEX COMMERCIAL LITIGATION [place]) Protime 13.6 11.9 - 14.2 seconds [facility] INR 1.1 <=5.9 [facility] Specimen Blood Narrative Performed At Effective 09/05/2018: PT Reference Range [facility] Change New: 11.9-14.2Previous: 11.7-14.7 RECOMMENDED COUMADIN/WARFARIN INR THERAPY RANGES STANDARD DOSE: 2.0-3.0Includes: PROPHYLAXIS for venous thrombosis, systemic embolization; TREATMENT for venous thrombosis and/or pulmonary embolus. HIGH RISK: Target INR is 2.5-3.5 for patients wiht mechanical heart valves. Performing Organization Address City/State/Zipcode Phone Number [facility] [address] [place] [address] CENTER after 10/10/2018 Insurance Payer Benefit Plan / Group Subscriber ID Type Phone A ddress [employer] - MEDICARE MGD [employer] MEDICARE ADV xxxxxxxxx Maps Contracted CARE Advance Directives For more information, please contact:[address] [phone] Code Status Date Activated Date Inactivated Comments Full Code 04/24/2019 6:15 AM 04/25/2019 3:08 PM This code status was determined by: Patient Full Code 05/09/2015 12:40 AM 05/11/2015 11:00 AM This code status was determined by: Patient Full Code 02/17/2014 4:54 PM 02/18/2014 2:07 PM This code status was determined by: Patient
--- OUTSIDE RECORDS SUMMARY | 2019-10-11 10:52 | XMS REPORT | Continuity of Care Document ---
:1940 Author Organization [employer] Care Team Providers Name Role Phone Docea Power Unavailable Un available Problems Problem Status Onset Classification Date Comments Sourc e Date Reported SDH Active [facility] 9 [facility] HEAD INJURY Active [facility] WITH SDH 9 [facility] [place] OF Medical UNSP Center DURATION, Medications Medication Details Route Status Patient Ordering Order Source Instructions Provider Date Levetiracetam 500 500 mg = 1 tab, Active 06/29[facility] MG Oral Tablet PO, Q12H, # 8 2019 Med ical [Keppra] tab, 0 Center Refill(s) Acetaminophen 325 650 mg = 2 tab, Active 06/29[facility] MG Oral Tablet PO, Q6H, PRN 2019 [facility] padmini Pain Score 1-3, Center 0 Refill(s) Magnesium Oxide Notes: (Same Inactive 06/29[facility] as: Mag-Ox 400) 2019 [facility] Magnesium oxide [place] [id number] elemental magnesium Dose=____mg magnesium oxide (___mg elemental magnesium) Magnesium Sulfate Notes: WASTE: Inactive 06/29[facility] F/P - Sink; E - [address] [facility] Bin Calcium Gluconate Notes: WASTE: Inactive 06/29[facility] F/P - Sink; E - [facility] [place] Bin sodium phosphate Notes: Infuse Inactive 06/29[facility] over 4 hour. Do 2019 Medical not infuse Center phosphorous concurrently in the same line as TPN or IVF that contains calcium. For double lumen central lines, phosphorous may be infused in a separate lumen from TPN. Potassium Chloride Notes: (Same Inactive 06/29[facility] as: K-Dur 20) 2019 Medical "Do Not Crush" Center Give with food and full glass of water For patients unable to swallow tablet, dissolve in one half glass of water. Allow about 2 minutes for the tablets to disintegrate. Stir before giving to prepare slurry and administer. Please exclude Patient’s with feeding tube less than 14 [place] (Dobhoff, J-tube etc) and pediatric and patients. potassium Notes: (Same Inactive [place] phosphate-sodium as: Phos-NaK) 2018 M edical phosphate 250 Each 1.5 gm pkt Ce nter mg-280 mg-160 mg has 250mg oral powder for phosphorous. reconstitution Mix w/2.5oz water and stir. potassium phosphate Notes: (Same Inactive [place] as: K 2019 Medical Phosphate.) Do Center not infuse phosphorous concurrently in the same line as TPN or IVF that contains calcium. For double lumen central lines, phosphorous may be infused in a separate lumen from TPN. 1 mMol phoshate has 1.47 mEq potassium Infuse over 4 hours sugammadex Notes: (Same No Longer [place] as: Bridion) Active 2018 [facility] sugammadex (ANES) Route: IV, Drug Inactive 06/28 [place] form: SOLN, 2018 Medical ONCE, Stop Center date: 06/28/18 11:26:00 CDT niCARdipine (ANES) Route: IV, Drug Inactive 06/09 [place] form: INJ, 2018 Medical ONCE, Stop Center date: 06/28/18 11:26:00 CDT ondansetron (ANES) Route: IV, Drug Inactive 06/09 [facility] form: INJ, 2018 Medical ONCE, Stop Center date: 06/28/18 11:17:00 CDT protamine (ANES) Route: IV, Drug Inactive [facility] form: INJ, 2018 Medical ONCE, Stop Center date: 06/28/18 11:12:00 CDT diphenhydrAMINE Route: IV, Drug Inactive [facility] (ANES) form: INJ, 2018 Medical ONCE, Stop Center date: 06/28/18 10:52:00 CDT Nicardipine Notes: Same as: No Longer [place] Cardene Active 2018 Medical Concentration: Center (0.1 mg/ 1 ml) phenylephrine Route: IV, Drug Inactive [place] (ANES) form: INJ, 2018 Medical ONCE, Stop Center date: 06/28/18 10:42:00 CDT fentaNYL (ANES) Route: IV, Drug Inactive [facility] form: INJ, 2018 Medical ONCE, Stop Center date: 06/28/18 9:52:00 CDT propofol (ANES) Route: IV, Drug Inactive [facility] form: INJ, 2018 Medical ONCE, Stop Center date: 06/28/18 9:52:00 CDT rocuronium (ANES) Route: IV, Drug Inactive 06/28 [facility] form: INJ, 2018 Medical ONCE, Stop Center date: 06/28/18 9:52:00 CDT heparin (ANES) Route: IV, Drug Inactive [facility] form: INJ, 2018 Medical ONCE, Stop Center date: 06/28/18 9:42:00 CDT DepoMedrol (ANES) Route: IV, Drug Inactive 06/28 [facility] form: INJ, 2018 Medical ONCE, Stop Center date: 06/28/18 9:32:00 CDT iodixanol 150 mL, Route: Inactive [place] INTRAARTERIAL, 2018 Medical Dosing Weight Center 82.273, kg, ONCE, Start date: 06/28/18 9:18:00 CDT, Stop date: 06/28/18 9:18:00 CDT Ondansetron 4 mg, Route: Inactive [place] IVP, ONCE, 2018 Medical Dosing Weight Center 82.273, kg, PRN Nausea & Vomiting, Start date: 06/28/18 9:16:00 CDT Hydralazine 10 mg, Route: Inactive [place] IVP, Q20Min, 2018 Medical Dosing Weight Center 82.273, kg, PRN Elevated BP, Start date: 06/28/18 9:16:00 CDT, Duration: 2 doses or times, Stop date: Limited # of times Fentanyl 25 microgram, Inactive [facility] Route: IVP, 2019 Medical Q5Min, Dosing Center Weight 82.273, kg, PRN Pain Score 4-6, Priority: Routine, Start date: 06/28/18 9:16:00 CDT, Duration: 4 doses or times, Stop date: Limited # of times Flumazenil 0.2 mg, Route: [place]active [place] IVP, PRN, 2019 Medical Dosing Weight Center 82.273, kg, PRN Benzodiazepine Reversal, Initial dose, Start date: 06/28/18 9:16:00 CDT, Duration: 30 day, Stop date: 07/28/18 9:15:00 CDT Naloxone 0.4 mg, Route: [place] IVP, Q2MIN, 2019 Medical Dosing Weight Center 82.273, kg, PRN Narcotic Reversal, Start date: 06/28/18 9:16:00 CDT, Duration: 8 doses or times, Stop date: Limited # of times cetirizine Notes: (Same No Longer [place] As: Zyrtec) Active 2019 [facility] Sodium Chloride Route: IV, Inactive [place] 0.9% IV (ANES) 1000 Total Volume: 2019 Medical mL 1,000, Start Center date: 06/28/18 8:30:00 CDT, Stop date: 06/28/18 9:30:00 CDT Levetiracetam 500 Notes: (Same No Longer [place] MG Oral Tablet as:Keppra) Active 2019 Medica l [Keppra] Center heparin Notes: porcine [place] Longer [place] heparin Active 2019 [facility] Dexamethasone Notes: Give No Longer [place] with food. Active 2019 [facility] Loratadine Notes: 1 hr [place] Longer [place] before meals Active 2019 Medical (Same as: [facility]) Non-formulary item cetirizine Notes: (Same Inactive [place] as: Zyrtec) 2019 [facility] Famotidine Notes: (Same No Longer [place] as: Pepcid) Active 2019 [facility] Metamucil Notes: (Same [place] Longer [place] as: Metamucil) Active 2019 Medical Mix in 8 oz Center liquid with meal. Loratadine Notes: 1 hr Inactive [place] before meals 2019 Medical (Same as: [facility]) Non-formulary item multivitamin Notes: (Same No Longer [place] as:Thera) Active 2019 Medical WASTE: F/P - Center Black; E - Municipal Trash Bin Take with food. Folic Acid Notes: (Same No Longer [place] as: Folvite) Active 2019 Medical [place] Thiamine Notes: (Same No Longer [place] As: Vitamin B1) Active 2019 [facility] methylPREDNISolone 125 mg, Route: Inactive 06/27 [place] SODium SUCCinate IVP, Drug form: 2019 Medical INJ, Q8H, Center Dosing Weight 82.273, kg, Start date: 06/27/18 8:00:00 CDT, Duration: 24 hr, Stop date: 06/28/18 0:00:00 CDT Hydrocortisone Notes: (Same Inactive [place] as: 2019 Medical Solu-CORTEF) Center Benadryl Notes: (Same No Longer [place] as: Benadryl) Active 2019 [facility] Benadryl Notes: (Same Inactive [place] as: Benadryl) 2019 Medical [place] methylPREDNISolone Notes: (Same Inactive [facility] SODium SUCCinate as:Solu-MEDROL, 2019 [facility] A-Methapred) Center Benadryl 25 mg, Route: Inactive [place] IV, Q8H, Dosing 2019 Medical Weight 82.273, Center kg, PRN Itching, Start date: 06/27/18 7:10:00 CDT, Duration: 30 day, Stop date: 07/27/18 7:09:00 CDT Lopressor Notes: (Same [place] Longer [place] as: Toprol XL) Active 2019 [facility] split tab, Center but do not crush. Doxazosin Notes: (Same [place] Longer [place] as: Cardura) Active 2019 [facility] Allopurinol Notes: (Same [place] Longer [place] as: Zyloprim) Active 2019 [facility] normal saline 0.9% 1,000 mL, Rate: No Longer [place] IV 1,000 mL 100 ml/hr, Active 2019 Medical Infuse over: 10 Center hr, Route: IV, Dosing Weight 82.273 kg, Total Volume: 1,000, Start date: 06/26/18 19:27:00 CDT, Duration: 30 day, Stop date: 07/26/18 19:26:00 CDT, 2.04, m2 sirolimus Notes: (Same [place] Longer [place] as: Rapamune) Active 2019 Medical Center mycophenolate Notes: SEPARATE No Longer [place] mofetil ANTACIDS from Active 2018 Medical Cellcept by 2 Center hrs. (Same As: CellCept) Sirolimus Notes: (Same Inactive [facility] as: Rapamune) 2019 [facility] sirolimus 1 mg oral 1 mg = 1 tab, Active [facility] tablet PO, QAM, 0 2019 Medical Refill(s) [place] mycophenolate 250 mg = 1 cap, Active [facility] mofetil 250 mg oral PO, BID, 0 2019 edical capsule Refill(s) [place] metoprolol 50 mg 50 mg = 1 tab, Active [facility] oral tablet, PO, BID, 0 2018 Medical extended release Refill(s) Cente r Folic Acid 0.4 MG 0.4 mg = 1 tab, Active [facility] Oral Tablet PO, Daily, # 2019 Medical 100 tab, 0 Center Refill(s) Vitamin D3 5000 5,000 IntlUnit Active [facility] intl units oral = 1 cap, PO, 2019 Med ical capsule Daily, # 30 Center cap, 1 Refill(s) sirolimus 1 mg oral 2 mg = 2 tab, Inactive 06/26 [facility] tablet PO, Daily, 0 2019 Medical Refill(s) [place] PreserVision AREDS PO, Daily, 0 Active [facility] 2 Refill(s) 2019 [facility] allopurinol 100 mg 100 mg = 1 tab, Active 06/26 [facility] oral tablet PO, BID, 0 2019 Medical Refill(s) [place] doxazosin 2 mg oral 2 mg = 1 tab, Active [facility] tablet PO, Bedtime, 0 2019 Medical Refill(s) [place] Fish Oil 1200 mg 1,200 mg = 1 Active [facility] oral capsule cap, PO, TID, 0 2019 Med ical Refill(s) [place] Levetiracetam Notes: Same as No Longer [facility] Keppra Mix Active 2018 Medical with 100 mL NS, Center LR or D5W MEDICATION WASTE Product Size: 500 mg Product Wasted: ___ mg Saline Flush 0.9% Notes: (Same No Longer [facility] as: BD Active 2018 Medical Posiflush) Center Docusate Sodium 100 Notes: (Same No Longer 06/26 [place] MG Oral Capsule as: Colace) (Do Active 2018 Medical Not Crush) Center sennosides, SENIOR LIVING Notes: (Same No Longer H [place] as: Senokot) Active 2018 Medical Center Famotidine Notes: (Same No Longer [place] as: Pepcid) Can Active 2018 Medical be dilute in Center 5-10cc NS IVP: Slow IV push over at least 2 minutes. pantoprazole Notes: Tablet No Longer [place] should not be Active 2018 Medical chewed or Center crushed. (Same as: Protonix) Tylenol Notes: Do not No Longer [place] exceed 4 Active 2018 Medical gm/day. (Same Center as: Tylenol) Morphine Notes: (Same No Longer [place] as:MORPhine Active 2018 Medical Sulfate) Center Insulin regular 60 units) No Longer [place] WASTE: F/P - Active 2018 Medical Black; E - Center Municipal Trash Bin Stable for 28 days at room temperature Expires in days from D ate Saline Flush 0.9% Notes: (Same No Longer [place] as: Active 2018 Medical Posiflush) Center Bisacodyl Notes: (Same [place] Longer [place] As: Dulcolax, Active 2018 Medical Bisco-Lax) Center Labetalol 10 mg, 2 mL, [place] Longer [place] Route: IVP, Active 2018 Medical Drug form: INJ, Center Q15Min, Dosing Weight 82.273, kg, PRN Hypertension, Start date: 06/25/18 23:56:00 CDT, Duration: 3 doses or times, Stop date: Limited # of times Ondansetron Notes: (Same No Longer Arnoldo velasquez as: Zofran) Active 2018 Medical MEDICATION Center WASTE Product Size: 4 mg Product Wasted: ___ mg normal saline 0.9% 1,000 mL, Rate: No Longer [place] IV 1,000 mL 75 ml/hr, 2018 Medical Infuse over: Center 13.3 hr, Route: IV, Dosing Weight 82.273 kg, Total Volume: 1,000, Start date: 06/25/18 23:55:00 CDT, Duration: 30 day, Stop date: 07/25/18 23:54:00 CDT, 2.04, m2 Acetaminophen 650 mg, Route: Inactive [facility] PO, Drug form: 2019 Medical TAB, ONCE, Center Dosing Weight 82.273, kg, Priority: STAT, Start date: 06/25/18 21:35:00 CDT, Stop date: 06/25/18 21:35:00 CDT Ondansetron Notes: (Same Inactive [place] as: Zofran) 2019 Medical MEDICATION Center WASTE Product Size: 4 mg Product Wasted: ___ mg Keppra 1,000 mg, Inactive [facility] Route: IV, 2019 Medical ONCE, Dosing Center Weight 82.273, kg, Start date: 06/25/18 19:43:00 CDT, Stop date: 06/25/18 19:43:00 CDT Allergies, Adverse Reactions, Alerts Substance Category Reaction Severity Reaction Status Date Comments S ource type Reported iodine Assertion flushing Drug Active OP ID of the allergy Robertson face. Immunizations No Data Provided for This Section Results Order Name Results Value Reference Date Interpretation Comments Charissa rce Range ELECTROLYTE AGAP 12.5 10.0 - 06/29 [facility] S 20.0 [facility] ELECTROLYTE Calcium Lvl 7.8 8.5 - 10.5 06/29 [place] [facility] ELECTROLYTE eGFR 36 06/29 Result [facility] Comment: The Medical eGFR is Center [...] should be multiplied by the estimated BMI. ELECTROLYTE Chloride Lvl 118 95 - 109 06/29 [facility] ELECTROLYTE CO2 19 24 - 32 06/[address] ELECTROLYTE Creatinine 1.79 0.50 - 06/29 [facility] S Lvl 1.40 [facility] ELECTROLYTE Sodium Lvl 146 135 - 145 06/29 [facility] [place] [facility] 2018 [facility] ELECTROLYTE Glucose Lvl 106 70 - 99 06/29 [facility] ELECTROLYTE BUN 26 7 - 22 06/29 [facility] ELECTROLYTE Potassium Lvl 3.5 3.5 - 5.1 06/29 [place] [facility] CHEM PANEL Phosphorus 1.9 2.5 - 4.5 06/[address] CHEM PANEL Magnesium Lvl 1.4 1.8 - 2.4 06/29 [facility] HEMATOLOGY Lymphocytes 7.9 20.0 - 06/29 [facility] 40.0 [facility] HEMATOLOGY Segs 89.4 45.0 - 06/29 [facility] 75.0 [facility] HEMATOLOGY Lymphocytes # 0.6 1.0 - 5.5 06/[address] HEMATOLOGY Neutrophils # 6.6 1.5 - 8.1 06/[address] HEMATOLOGY Monocytes # 0.2 0.0 - 0.8 06/29 [facility] [place] [facility] HEMATOLOGY Basophils 0.1 0.0 - 1.0 06/[address] HEMATOLOGY Monocytes 2.6 2.0 - 12.0 06/[address] HEMATOLOGY Platelet 179 133 - 450 06/29 [facility]2018 [facility] HEMATOLOGY RDW 16.3 11.5 - 06/29 [facility] 14.5 [facility] HEMATOLOGY MPV 7.8 7.4 - 10.4 06/[address] HEMATOLOGY MCHC 33.4 32.0 - 06/29 [facility] 36.0 [facility] HEMATOLOGY MCV 90.7 80.0 - 06/29 [facility] 94.0 [facility] HEMATOLOGY Hct 35.9 42.0 - 06/29 [facility] 54.0 /2018 [facility] HEMATOLOGY MCH 30.3 27.0 - 06/29 [facility] 31.0 /2018 [facility] HEMATOLOGY Hgb 12.0 14.0 - 06/29 [facility] 18.0 /2018 [facility] HEMATOLOGY WBC 7.4 3.7 - 10.4 06/29 [facility] HEMATOLOGY RBC 3.96 4.70 - 06/29 [place] 6.10 /2018 [facility] PARATHYROID Ca Norm WB 1.08 1.05 - 06/29 [place] PROFILE 1. [facility] PARATHYROID Ca Ion WB 1.09 1.05 - 06/29 [facility] PROFILE 1. [facility] DRUG SCREEN U Amph Scr Negative Negative 06/29 [place] *NA* Medical (06/28/18 8:58 PM) Center DRUG SCREEN U Benzodiaz Negative Negative 06/29 [place] Scr * Medical (06/28/18 8:58 PM) Center DRUG SCREEN U Agnes Scr Negative Negative 06/29 [place] *NA Medical (06/28/18 8:58 PM) Center DRUG SCREEN U Cannab Scr Negative Negative 06/29 [place] *NA Medical (06/28/18 8:58 PM) Center DRUG SCREEN U Cocaine Scr Negative Negative 06/29 [place] *NA Medical (06/28/18 8:58 PM) Center DRUG SCREEN UDS Note See Note 06/29 [place] *NA* Medical (06/28/18 8:58 PM) Center DRUG SCREEN U Opiate Scr Negative Negative 06/29 [place] *NA Medical (06/28/18 8:58 PM) Center DRUG SCREEN U Negative Negative 06/29 [place] Phencyclidine *NA Medical Scr (06/28/18 8:58 PM) Center URINE AND UA RBC <1 0 - 2 06/29 [facility] /2018 [facility] URINE AND UA Spec Grav 1.030 <=1.030 06/29 [facility] /2018 [facility] URINE AND UA Turbidity Marked Clear 06/29 [facility] STOOL *ABN* Medical (06/28/18 8:58 PM) Center URINE AND UA pH 5.0 5.0 - 8.0 06/29 [facility] URINE AND UA Bili Negative Negative 06/29 [facility] STOOL *NA* [facility] (06/28/18 8:58 PM) Center URINE AND UA Ketones Negative Negative 06/29 [place] STOOL *NA* [facility] (06/28/18 8:58 PM) Center URINE AND UA Color Yellow Yellow 06/29 [place] STOOL *NA* [facility] (06/28/18 8:58 PM) Center URINE AND UA Blood Small Negative 06/29 [facility] STOOL *ABN* [facility] (06/28/18 8:58 PM) Center URINE AND UA Glucose Negative Negative 06/29 [facility] STOOL *NA* [facility] (06/28/18 8:58 PM) [place] URINE AND UA Protein 100 mg/dL Negative 06/29 [facility] STOOL mg/dL [facility] URINE AND UA WBC 1 0 - 5 06/29 [facility] STOOL [facility] URINE AND UA Sq Epi None Seen Few 06/29 [facility] STOOL (06/28/18 8:58 PM) [facility] URINE AND UA Leuk Est Moderate Negative 06/29 [facility] STOOL *ABN* [facility] (06/28/18 8:58 PM) [place] URINE AND UA Nitrite Negative Negative 06/29 [facility] (06/28/18 8:58 PM) [facility] URINE AND UA <1.0 0.1 - 1.0 06/29 [facility] STOOL Urobilinogen /2018 [facility] HEMATOLOGY POC Activated 233 06/28 [place] [facility] HEMATOLOGY POC Activated 245 06/28 [place] [facility] HEMATOLOGY POC Activated 143 06/28 [place] [facility] BLOOD BANK Antibody Scrn Negative 06/28 [place] RESULTS (06/28/18 3:46 AM) [facility] BLOOD BANK ABO/Rh O POS 06/28 [place] RESULTS [facility] CHEM PANEL Magnesium Lvl 1.9 1.8 - 2.4 06/28 [place] [facility] CHEM PANEL Phosphorus 1.9 2.5 - 4.5 06/28 [place] /2018 [facility] ELECTROLYTE AGAP 13.0 10.0 - 06/28 [place] S 20.0 [facility] ELECTROLYTE eGFR 37 06/28 Result [place] Comment: The Medical eGFR is Center calculated [...] should be multiplied by the estimated BMI. ELECTROLYTE Calcium Lvl 8.4 8.5 - 10.5 06/28 [facility] xa [facility] ELECTROLYTE BUN 26 7 - 22 06/28 [facility] ELECTROLYTE Glucose Lvl 119 70 - 99 06/[address] ELECTROLYTE Potassium Lvl 4.0 3.5 - 5.1 06/28 [place] [facility] ELECTROLYTE Sodium Lvl 144 135 - 145 06/28 [facility] ELECTROLYTE Creatinine 1.76 0.50 - 06/28 [facility] Lvl 1.40 [facility] ELECTROLYTE Chloride Lvl 114 95 - 109 06/28 [facility] ELECTROLYTE CO2 21 24 - 32 06/28 [facility] HEMATOLOGY INR 1.07 0.85 - 06/28 [facility] 1.17 [facility] HEMATOLOGY PT 13.7 12.0 - 06/28 [facility] 14.7 [facility] HEMATOLOGY PTT 27.4 22.9 - 06/28 [facility] 35.8 [facility] HEMATOLOGY TEG Interp Thrombelas 06/28 [facility] [place] [facility] tograph [facility] show shortened value of R. 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 CPT:62388 HEMATOLOGY Coag Index 3.2 -3.0-3.0 - 06/28 [facility] [place] [facility] 3.0 [facility] HEMATOLOGY TEG Data See Note 06/28 [facility] (06/28/18 3:46 AM) [facility] HEMATOLOGY G-value 9.8 4.5 - 11.0 06/28 [facility] HEMATOLOGY Ly30 0.0 0.0 - 7.5 06/28 [facility]2018 [facility] HEMATOLOGY Max Amp 66.3 50.0 - 06/28 [facility] 70.0 [facility] HEMATOLOGY K-time 1.7 1.0 - 3.0 06/28 2018 [facility] HEMATOLOGY Angle 68.4 53.0 - 06/28 [place] 72.0 [facility] HEMATOLOGY R-time 2.6 5.0 - 10.0 06/28 [facility]2018 [facility] HEMATOLOGY WBC 8.2 3.7 - 10.4 06/28 [facility]2018 [facility] HEMATOLOGY MCHC 33.7 32.0 - 06/28 [facility] 36.0 [facility] HEMATOLOGY MCH 30.3 27.0 - 06/28 [facility] 31.0 [facility] HEMATOLOGY MCV 90.1 80.0 - 06/28 [facility] 94.0 [facility] HEMATOLOGY Hgb 12.7 14.0 - 06/28 [facility] 18.0 [facility] HEMATOLOGY RBC 4.18 4.70 - 06/28 [place] 6.10 [facility] HEMATOLOGY Hct 37.7 42.0 - 06/28 [facility] 54.0 [facility] HEMATOLOGY RDW 16.1 11.5 - 06/28 [facility] 14.5 [facility] HEMATOLOGY MPV 8.6 7.4 - 10.4 06/[address] HEMATOLOGY Platelet 203 133 - 450 06/28 [facility]2018 [facility] HEMATOLOGY Lymphocytes # 0.9 1.0 - 5.5 06/28 [facility] HEMATOLOGY Monocytes # 0.1 0.0 - 0.8 06/28 [facility] [place] [facility] HEMATOLOGY Basophils 0.6 0.0 - 1.0 06/[address] HEMATOLOGY Neutrophils # 7.2 1.5 - 8.1 06/28 [facility] [address] [place] [address] HEMATOLOGY Eosinophils 0.1 0.0 - 4.0 06/28 [facility] [place] [facility] HEMATOLOGY Monocytes 0.9 2.0 - 12.0 06/[address] HEMATOLOGY Lymphocytes 10.5 20.0 - 06/28 [place] 40.0 [facility] HEMATOLOGY Segs 87.9 45.0 - 06/28 [facility] 75.0 [facility] HEMATOLOGY Plt Morph Normal 06/28 [facility] (06/28/18 3:46 AM) [facility] HEMATOLOGY RBC Morph Normal 06/28 [facility] (06/28/18 3:46 AM) [facility] PARATHYROID Ca Ion WB 1.15 1. - 06/28 [facility] PROFILE 1. [facility] PARATHYROID Ca Norm WB 1.13 1. - 06/28 [facility] PROFILE . [facility] CHEM PANEL eGFR 35 06/[address] [facility] Comment: The [facility] eGFR is Center calculated using the CKD-EPI [...] Calcium Lvl 8.7 8.5 - 10.5 06/27 [facility] CHEM PANEL CO2 24 24 - 32 06/27 [facility] CHEM PANEL Sodium Lvl 144 135 - 145 06/27 [facility] CHEM PANEL Creatinine 1.85 0.50 - 06/27 [facility] Lvl 1.40 [facility] CHEM PANEL Potassium Lvl 4.0 3.5 - 5.1 06/27 [place] [facility] CHEM PANEL Chloride Lvl 113 95 - 109 06/27 [facility] CHEM PANEL BUN 25 7 - 22 06/27 [facility] [facility] CHEM PANEL Glucose Lvl 88 70 - 99 06/[address] CHEM PANEL AGAP 11.0 10.0 - 06/27 [facility] 20.0 [facility] CHEM PANEL Phosphorus 3.3 2.5 - 4.5 06/[address] CHEM PANEL Magnesium Lvl 2.0 1.8 - 2.4 06/[address] HEMATOLOGY Basophils # 0.1 0.0 - 0.2 06/27 [facility] HEMATOLOGY Eosinophils # 0.1 0.0 - 0.5 06/27 [facility] HEMATOLOGY Plt Morph Normal 06/27 [facility] (06/27/18 12:21 AM) [facility] HEMATOLOGY Segs 64.6 45.0 - 06/27 [facility] 75.0 [facility] HEMATOLOGY Lymphocytes 25.7 20.0 - 06/27 [facility] 40.0 [facility] HEMATOLOGY Eosinophils 2.0 0.0 - 4.0 06/27 [facility] HEMATOLOGY Monocytes 6.8 2.0 - 12.0 06/[address] HEMATOLOGY Neutrophils # 4.1 1.5 - 8.1 06/27 [facility] [address] [place] [address] HEMATOLOGY Basophils 0.9 0.0 - 1.0 06/[address] HEMATOLOGY Monocytes # 0.4 0.0 - 0.8 06/27 [facility] HEMATOLOGY Lymphocytes # 1.6 1.0 - 5.5 06/[address] HEMATOLOGY RBC Morph Normal 06/27 [facility] (06/27/18 12:21 AM) [facility] HEMATOLOGY TEG Interp Thrombelas 06/27 [facility] show shortened value of R. 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 CPT:77843 HEMATOLOGY Ly30 0.0 0.0 - 7.5 06/[address] HEMATOLOGY G-value 10.5 4.5 - 11.0 06/[address] HEMATOLOGY Coag Index 3.2 -3.0-3.0 - 06/27 [facility] 3.0 [facility] HEMATOLOGY K-time 1.4 1.0 - 3.0 06/[address] HEMATOLOGY Angle 70.7 53.0 - 06/27 [facility] 72.0 2019 [facility] HEMATOLOGY Max Amp 67.8 50.0 - 06/27 [place] 70.0 2019 [facility] HEMATOLOGY R-time 3.2 5.0 - 10.0 06/27 [facility] HEMATOLOGY TEG Data See Note 06/27 [facility] (06/27/18 12:21 AM) [facility] HEMATOLOGY INR 1.05 0.85 - 06/27 [place] 1.17 [facility] HEMATOLOGY PT 13.5 12.0 - 06/27 [facility] 14.7 [facility] HEMATOLOGY PTT 33.5 22.9 - 06/27 [facility] 35.8 [facility] HEMATOLOGY MCH 30.3 27.0 - 06/27 [facility] 31.0 [facility] HEMATOLOGY MCV 90.2 80.0 - 06/27 [facility] 94.0 [facility] HEMATOLOGY MPV 7.7 7.4 - 10.4 06/27 [facility] HEMATOLOGY Platelet 190 133 - 450 06/27 [facility] HEMATOLOGY MCHC 33.5 32.0 - 06/27 [facility] 36.0 [facility] HEMATOLOGY RDW 16.1 11.5 - 06/27 [facility] 14.5 [facility] HEMATOLOGY WBC 6.3 3.7 - 10.4 06/27 [facility] HEMATOLOGY Hgb 13.3 14.0 - 06/27 [facility] 18.0 [facility] HEMATOLOGY Hct 39.6 42.0 - 06/27 [place] 54.0 2019 [facility] HEMATOLOGY RBC 4.39 4.70 - 06/27 [place] 6.10 [facility] PARATHYROID Ca Norm WB 1.12 1.05 - 06/27 [place] PROFILE 1. [facility] PARATHYROID Ca Ion WB 1.15 1.05 - 06/27 [place] PROFILE . [facility] CHEM PANEL Bili Total 0.7 0.2 - 1.3 06/26 [facility]2018 [facility] CHEM PANEL Alk Phos 80 39 - 136 06/26 [facility]2018 [facility] CHEM PANEL Albumin Lvl 2.6 3.5 - 5.0 06/26 [place] [facility] CHEM PANEL Globulin 3.4 2.7 - 4.2 06/26 [facility] CHEM PANEL A/G Ratio 0.8 0.7 - 1.6 06/26 [facility] CHEM PANEL ALT 16 0 - 65 06/26 [facility] CHEM PANEL AST 13 0 - 37 06/26 [facility] CHEM PANEL B/C Ratio 15 6 - 25 06/26 [facility] CHEM PANEL Total Protein 6.0 6.4 - 8.4 06/26 [place] [facility] TOXICOLOGY Rapamycin Lvl 3.9 5.0 - 15.0 06/26 [place] [facility] BACTERIAL - MRSA by PCR Negative 06[place] (06/26/18 5:59 AM) /2018 [facility] BLOOD BANK Antibody Scrn Negative 06/26 [place] RESULTS (06/25/18 7:59 PM) [facility] BLOOD BANK ABO/Rh O POS 06/26 [facility] RESULTS [facility] CARDIAC Troponin-I <0.02 0.00 - 06/26 [facility] ENZYMES 0.40 [facility] CHEM PANEL Lactic Acid 1.2 0.5 - 2.2 06/26 [place] L[place] [facility] HEMATOLOGY Eosinophils 0.2 0.0 - 4.0 06/26 [place] [facility] HEMATOLOGY Estimated % 0.0 0.0 - 7.5 06/26 [place] L[place] Rapid [facility] HEMATOLOGY R-time Rapid 0.4 0.4 - 0.7 06/26 [place] [facility] HEMATOLOGY K-time Rapid 0.8 0.6 - 2.3 06/26 [place] [facility] HEMATOLOGY G-value Rapid 15.7 5.0 - 11.6 06/26 [place] [facility] HEMATOLOGY Max Amplitude 76 52 - 71 06/[place] [facility] HEMATOLOGY [place] 0.4 06/26 [facility] HEMATOLOGY ACT (TEG) 89 86 - 118 06/26 [facility] HEMATOLOGY Angle Rapid 82 64 - 80 06/26 [facility]2018 [facility] HEMATOLOGY PTT 37.2 22.9 - 06/26 [place] 35.8 [facility] HEMATOLOGY INR 1.00 0.85 - 06/26 [place] 1.17 [facility] HEMATOLOGY PT 13.0 12.0 - 0319 [facility] 14.7 [facility] Pathology Reports No Data Provided for This Section Diagnostic Reports Report Value Date Source Brain wo contrast CT EXAM: CT BRAIN 07/12/2018 MUKESH A[facility] DATE: 07/12/2018 at 9:06 CLINICAL INFORMATION: Histor y of liver transplant, hypertension and 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 DLP: 993.15 mGycm DISCUSSION: Decreased right hemispheric subdural hematoma with trace residual. Improvement in the mass effect with minimal residual [id number] midline shift. Stable appearance of the brain parenchyma. Embolization material in the region of the right middle meningeal artery. IMPRESSION: Interval decrease in the rig ht hemispheric subdural hematoma with trace residual measuring 6 mm in greatest thickness Angiogram cervical PROCEDURE: 06/28/2018 [facility] padmini artery bilateral VR 1. Diagnostic Cerebral Angiogram Center 2. Transarterial Embolization: Right Middle Men ingeal Artery DATE: 06/28/2018 7:24 CDT INDICATION: Chronic subdural hematoma HISTORY: Patient is a 77-yea r-old male with past medical history significant for liver transplant 20 years prior, hypertension, and chronic right subdural hematoma with mass effect following mechanical fall 2 weeks ago. Given this , transarterial embolization of the right middle meningeal [...] KERMA Lateral: 452.5 mGy PROCEDURE: Once informed con sent was obtained describing all the risks, benefits and alternatives of the procedure the patient was brought to the interventional suite and placed in the supine position w here general anesthesia was administered by the anesthesiology staff. The patient was then prepped and draped in the usual sterile fashion. The right femoral artery was accessed using a single wall micr opuncture technique and a 6- Mauritanian sheath was placed. A 5-Mauritanian Vert catheter was coaxially advanced over a 0.035 Terumo Glidewire through the sheath into the aorta arch to select the below mentioned a rteries using roadmap techni que. Two-dimensional angiography was performed in biplane projections. After review of the angiogra [facility] data, 5000 units of heparin IV was given. A 6- Mauritanian Benchmark 071 guide catheter over 5-Mauritanian Penumbra Select Vert catheter over a 0.035 Terumo Glidewire was advanced into the aortic arch to ruthy ct the right external carotid artery. The diagnostic catheter was withdrawn. Next, using roadmap guidance, an Hope Hull SL-10 microcatheter over a Synchro 2 soft microwire wa s advanced through the guide catheter into the right middle meningeal artery. Superselective runs of the right middle meningeal artery were performed to evaluate for any potential dangerous anastomoses. Distal branches of the righ t middle meningeal artery were then selected and 100-300 um Embospheres were slowly infused under blank roadmap technique. This was done until sluggish flow was seen within t he right middle meningeal ar nabila demonstrating near-complete embolization. We then pulled our microcatheter back into the main trunk of the right middle meningeal artery. Filling and finishing coils wer e placed using roadmap techn ique within the main trunk of the right middle meningeal artery. Post embolization superselective angiographic runs were performed demonstrating complete obliteration of the right middle meningeal arter y. There was no evidence of reflux or distal thromboembolic event. After review of the angiogra [facility] data, the catheter was withdrawn. Right femoral artery angiogram was performed and the catheter was removed. The femoral artery sheath was removed and closed by the appl ication of a Mynx closure de vice. Post procedure neurological examination was at the patient's baseline. The patient was was then transferred to PACU for post procedure care. TASKS: 1. Right common carotid artery catheterization a nd 2-D cervical angiogram 2. Right internal carotid artery selective sherry terization and 2-D angiogram 3. Right external carotid artery selective sherry terization and 2-D angiogram 4. Right middle meningeal ar nabila superselective catheterization and 2-D angiogram 5. Transarterial embolization: Right middle meni ngeal artery 6. Right common femoral artery catheterization a nd 2-D angiogram 7. Application of Mynx vascular closure device COILS: Axium Prime [place] 2mm x 8cm Axium Prime [place] 2mm x 8cm Axium Prime [place] 2.5mm x 8cm Axium Prime [place] 3mm x 8cm Axium Prime [place] 3mm x 8cm Axium Prime [place] 4mm x 6cm EMBOSPHERE: 100-300 um PRE-TREATMENT FINDINGS: 1. Right common carotid fran ry: Right common carotid artery injection and cervical angiogram reveals antegrade flow into the external and internal carotid arteries with normal filling of the external ca rotid artery branches. Cours e and caliber of the cervical portion of the internal carotid artery are unremarkable. Further inspection demonstrates no evidence of dissection, stenosis, aneurysm, or other vascular abnormality within the common carotid artery into the cervical segment of the internal carotid artery. 2. Right internal carotid ar nabila: Right internal carotid artery injection reveals antegrade filling of the distal internal carotid artery, ophthalmic artery, anterior cerebral artery, middle cerebral ar nabila and the distal branches . Further inspection of the remaining right internal carotid artery circulation revealed no evidence of cerebral aneurysm, arteriovenous malformation, arterial stenosis or ot her vascular abnormalities. Capillary and venous phase images were also unremarkable with no evidence of venoocclusive disease. 3. Right external carotid ar nabila: Right external carotid artery injection reveals antegrade opacification of the right external carotid artery and branches. There is no evidence of abnormal intracranial communication or early venous shunting. 4. Right middle meningeal ar nabila: Right middle meningeal artery injection reveals antegrade opacification of the right middle meningeal artery and branches. There is no evidence of abnormal intracranial communication or early venous shunting. POST-TREATMENT FINDINGS: 1. Right external carotid ar nabila: Right external carotid artery injection reveals complete occlusion of the right middle meningeal artery. There was no evidence of reflux into the internal carotid artery circulation or distal thromboembolic event. 2. Right common femoral fran ry: Right common femoral artery injection demonstrates arterial catheterization above the level of the bifurcation. There was no evidence of dissection or occlusion within the right common femoral artery. IMPRESSION: 1. Right middle meningeal ar nabila injection reveals antegrade opacification of the right middle meningeal artery and branches. There is no evidence of abnormal intracranial communication or early venous shunting. 2. Successful transarterial embolization of the right middle meningeal artery with a combination of embospheres and coils. Chest 1view DX EXAM: XR CHEST 1 VIEW 06/26/2018 [facility] edical DATE: 06/26/2018 2:58 CDT Center INDICATION: pre-op clearance - pre-op clearance. FINDINGS: A single AP semier ect view of the chest is submitted without a prior study for comparison. The patient is rotated to th e left, causing leftward shift of the heart and mediastinum. There is bibasilar subsegmental atelectasis. No pleural effusions. IMPRESSION: Bibasilar subsegmental atelectasis. Ext Lower Venous EXAM: US BILATERAL LOWER EXTREMITY VENOUS DOPPL ER 06/26/2018 [facility] Doppler Bilat US DATE: 06/26/2018 2:07 CDT Center INDICATION: Assessment for deep venous thrombosi s COMPARISON: None. TECHNIQUE: Multiplanar oscar carline, color Doppler and spectral Doppler ultrasound of [...] CT BRAIN 06/25/2018 [facility] dical DATE: 06/25/2018 at 23:31 Center CLINICAL INFORMATION: Subdural hemorrhage COMPARISON: CT brain 06/25/2018 at 15:07 TECHNIQUE: Axial images of t he brain were obtained from the skull base through the vertex without contrast material administration. DLP: 969 mGycm DISCUSSION: No important change in the a cute on chronic right hemispheric subdural hematoma with minimal mass effect. Stable hemorrhage along the right tentorium and posterior interhemispheric fissure. No parenchym al or intraventricular hemorrhage. No hydrocepha willam or brain herniation. IMPRESSION: Stable exam Spine-Outside Consult EXAM: CT CERVICAL SPINE WITHOUT CONTRAST 0 06/25/2018 [facility] CT DATE: 06/25/2018 at 0000 hours Ce nter INDICATION: - fall, second interpretation reque sted COMPARISON: None. TECHNIQUE: Noncontrast CT im ages of the cervical spine, obtained at [facility]. Axial, sagittal and coronal images provided. [place] SECTION: ER FINDINGS: The spine is imaged from the skull bas e to the level of T2. There is mild levoscoliosis of the cervical spine which could be positional. Multilevel degenerative changes of the spine are visualized with multilevel small anterior osteophytes, multilevel facet and uncovertebral hypertrophy. D iffuse posterior disc bulges noted at C6-C7 level causing mild to moderate central canal stenosis. Vertebral body heights are preserved. No acute fracture or malalignment. In cidental note is made of con genital nonfusion of posterior arch of C1. The pre and paravertebral soft tissues are within normal limits. There is no apical pneumothorax. IMPRESSION: No acute fracture or malalignment the cervical s urbana Brain-Outside Consult EXAM: CT BRAIN 06/25/2018 [facility] CT DATE: 06/25/2018 Center CLINICAL INFORMATION: - Fall outside consult COMPARISON: None TECHNIQUE: Axial images of t he brain were obtained from the skull base through the vertex without contrast material administration. DLP: mGycm DISCUSSION: Mixed density right hemisphe keira subdural hematoma measuring 10 mm in greatest thickness resulting in mild mass effect upon the right cerebral hemisphere. 5 mm right to left midline shift. Hyperdensity along the tento rium and posterior interhemispheric fissure due to trace subdural hemorrhage. No acute bony lesions. Paranasal sinuses are dodie ar. IMPRESSION: Acute on chronic right hemis pheric subdural hematoma with no significant mass effect. Thin tentorial and interhemispheric subdural hem atoma. Consultation Notes No Data Provided for This Section Discharge Summaries No Data Provided for This Section History and Physicals No Data Provided for This Section Vital Signs Vital Sign Value Date Comments Source Temperature Oral (F) 97.0 F 06/29/2018 [facility] Respitory Rate 18 06/29/2018 [facility] Heart Rate 57 06/29/2018 [facility] Systolic (mm Hg) 138 06/29/2018 [facility] Diastolic (mm Hg) 62 06/29/2018 [facility] Respitory Rate 18 06/29/2018 [facility] Heart Rate 53 06/29/2018 [facility] Temperature Oral (F) 97.7 F 06/29/2018 [facility] Systolic (mm Hg) 112 06/29/2018 [facility] Diastolic (mm Hg) 59 06/29/2018 [facility] Systolic (mm Hg) 107 06/29/2018 [facility] Diastolic (mm Hg) 60 06/29/2018 [facility] Respitory Rate 16 06/29/2018 [facility] Heart Rate 66 06/29/2018 [facility] Temperature Oral (F) 97.3 F 06/29/2018 [facility] Weight 82.273 06/25/2018 [facility] BMI Calculated 25.3 06/25/2018 [facility] Height 180.34 cm 06/25/2018 [facility] Encounters Location Location Encounter Encounter Reason Attending ADM DC Stat us Source Details Type Number For Provider Date Date Visit [facility] Inpatient [id number] Vanessa 06/25 06/29 [facility] /2018 [facility] Phone [id number] 07/02 07/04 [facility] her Neurosurger Message Neur o y [facility] Outpatient [id number] TRAUMA 07/12 Active [facility] VISIT /2018 [facility] Outpt Diag [id number] [place] 07/12 07/13 [facility] Outpatient [id number] Dc 07/12 07/[address] [facility] Procedures Procedure Code Date Perfomer Comments Source Selective catheter 46772 06/28/2018 [place] [facility] placement, common Medical carotid or innominate Essence ter artery, unilateral, any approach, with angiography of the ipsilateral extracranial carotid circulation and all associated radiological supervision and interpretation, includes angiography of the c Selective catheter 31581 06/28/2018 [place] [facility] placement, external Medic al carotid artery, Center unilateral, with angiography of the ipsilateral external carotid circulation and all associated radiological supervision and interpretation (List separately in addition to code for primary procedure) Selective catheter 68386 06/28/2018 [place] [facility] placement, internal Medic al carotid artery, Center unilateral, with angiography of the ipsilateral intracranial carotid circulation and all associated radiological supervision and interpretation, includes angiography of the extracranial carotid and ce Assessment and Plan No Data Provided for This Section Plan of Care No Data Provided for This Section Social History Social History Date Source Social History TypeResponse 06/26/2018 [facility] Smoking Status Never smoker; Previous treatment: None; Ready to change: No; Concerns about tobacco use in household: No; Exposure to Tobacco Smoke None; Cigarette Smoking Last 365 Days No; Reg Smoking Cessation Counseling No entered on: 06/26/18 Social History TypeResponse 06/26/2018 [facility] Smoking Status Never smoker; Previous treatment: None; Ready to change: No; Concerns about tobacco use in household: No; Exposure to Tobacco Smoke None; Cigarette Smoking Last 365 Days No; Reg Smoking Cessation Counseling No entered on: 06/26/18 Social History TypeResponse 06/26/2018 MUKESH ahujad Smoking Status Never smoker; Previous treatment: None; Ready to change: No; Concerns about tobacco use in household: No; Exposure to Tobacco Smoke None; Cigarette Smoking Last 365 Days No; Reg Smoking Cessation Counseling No entered on: 06/26/18 Family History No Data Provided for This Section Advance Directives No Data Provided for This Section Functional Status No Data Provided for This Section
[2019-10-11] MEDS ORDERED: Ringers Lactate 1,000 ML IV ONE (10:54)
--- OUTSIDE RECORDS SUMMARY | 2019-10-11 10:57 | XMS REPORT | Continuity of Care Document ---
:1940 Author Organization [facility] t Address [address] [place] [address] Dr. Peguero. [address] [place] [id number] Care Team Providers Name Role Phone Jad Rizo Primary Care Physician Unavailable Ling Suggs MD Attending Clinician Edilson CARLISLE, M Attending Clinician Unavailable Eduin CARLISLE, L Attending Clinician Unavailable [facility] Attending Clinician Unavailable Singer YIN Attending Clinician Miguel Galvan MD Attending Clinician Vivek Brian MD Attending Clinician Breanne Sullivan Attending Clinician Unavailable YARELY Attending Clinician Unavailable Yarely MERCER Attending Clinician Kathi Esparza MD Attending Clinician Tj Callahan CRNA Attending Clinician Pam Orozco MD Attending Clinician Meera Oropeza Attending Clinician Dameon Attending Clinician YARELY Admitting Clinician Unavailable Curtis Simms Jr Admitting Clinician Payers Payer Name Policy Type Policy Number Effective Date Expiration Source Date HUMANA - MEDICARE [id number] [id number] [facility] CAREHU[facility]NA MEDICARE [facility] [id number] Contracted Center Problems Condition Condition Condition Status Onset Resolution Last Treating Co mments Source Name Details Category Date Date Treatment Clinician Date SDH Diagnosis Active 2018-06-25 [facility] oria 3 20:14:00 l SDH 00:00: Seth 00 Active 06/25/2018 [facility] HEAD Diagnosis Active 2018-06-29 [facility] oria INJURY 06-25 03:49:00 l WITH SDH HEAD 00:00: Seth INJURY 00 WITH SDH Active 06/25/2018 [facility] Diarrhea Diarrhea Disease [facility] - patient patient 00:00: Medical 00 Center Skin Skin Disease Active Last [facility] 10[facility] & Plan: Medical 00 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 Ulcerative Ulcerative Disease Active Last [facility] colitis colitis 10-[facility] & Plan: Medical He had Center ulcerativ e colitis s/p colectomy with J-pouch. We have referred him to a [facility] IBD specialis t. Chronic Chronic Disease Active Last [facility] 10-[facility] - insufficie insufficie 00:00: t & Plan: Medical ncy ncy 00 He is Center followed by Dr. 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 Continue follow-up . 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 Synthetic function of the allograft is well preserved . HTN HTN Disease Active Last [facility] - [facility]) ion) 00:00: t & Plan: Medical 00 Blood Center pressures elevated. Patient has follow-up with Dr. Taylor. Diabetes Diabetes Disease Active [facility] - 00:[facility]: t & Plan: Medical 00 Well Center controlle d on current regimen. Immunosupp Immunosupp Disease Active Last [facility] ression ression 09-26 [facility] t & Plan: Medical He is on Center sirolimus and Cellcept. Screening Screening Disease Active [facility] t & Plan: Medical 00 Patient Center has regular surveilla nce. He sees Dr. Wilcox. He is due for sigmoidos copy this upcoming year. TRAUM Diagnosis Active 2018-06-29 Mem oria SUBRAC HEM 03:49:00 l W LOC OF TRAUM [place] UNSP SUBRAC HEM DURATION, W LOC OF UNSP DURATION, Active [facility] History of Past Illness Condition Condition Condition Status Onset Resolution Last Treating Co mments Source Name Details Category Date Date Treatment Clinician Date Choledocho Choledocho Disease Resolve 2019-04-25 2019-04-25 [facility] lithiasis lithiasis d 1-15 00:00:00 10:25:55 [facility] - 00:[facility]: Medical 00 Center Allergies, Adverse Reactions, Alerts Allergy Allergy Status Severity Reaction(s) Onset Inactive Treating Comm ents Source Name Type Date Date Clinician Iodine Drug Active [facility] And Allergy 09-25 [facility] - Iodide 00:00: Medical Containi 00 [place] ng Products iodine iodine Active Sukhwinder Ann Family History Family Member Diagnosis Comments Start Date Stop Date Source Natural mother Liver cancer [facility] Social History Social Habit Start Date Stop Date Quantity Comments Source Sex Assigned At [facility] Smoking Status Start Date Stop Date Source Never smoker [facility] edical [place] Medications Ordered Filled Start Stop Current Ordering Indication Dosage Frequency Signature Comments Components Source Medication Medication Date Date Medication? Clinician (SIG) Name Name sirolimus Yes TAKE [address] [facility] (RAPAMUNE) 2-12 TABLET BY Matthew s - 1 MG tablet 00:00: MOUTH Medic al 00 DAILY Center mycophenola Yes Status post TAKE ONE [facility] te 2-12 liver CAPSULE BY Frances - (CELLCEPT) 00:00: transplanta MOUTH Medical 250 mg 00 tion (HCC) TWICE Center capsule DAILY folic acid Yes 400ug QD Take [address] (FOLVITE) 2-11 mcg by [facility] - 400 MCG 11:02: mouth Medical tablet 55 daily . Center lisinopril Yes high blood 2.5mg Take 2.[address] (PRINIVIL,Z 2-11 pressure mg by Nelly es - ESTRIL) 2.5 11:02: mouth as Me dical MG tablet 55 needed (if Cent er BP elevated as per nephrology )) . timolol Yes 1[drp] Q.5D Place 1-[address] (BETIMOL) 2-11 drops into Luke s - 0.25 % 11:02: both eyes Medica l ophthalmic 55 2 (two) Center solution times daily. doxazosin Yes 2mg QD Take [address] (CARDURA) 2 2-11 by mouth Luke s - MG tablet 11:02: daily. Medica l 55 Center cycloSPORIN 2020- No 1[drp] Place [address] [facility] E 2-11 02-11 drop into [facility] - (RESTASIS) 11:00: 00:00 both eyes M edical 0.05 % 01 :00 every 12 Center ophthalmic (twelve) emulsion hours. Levetiracet Yes 500 mg = 1 Memoria am 500 MG 3-22 tab, PO, l Oral Tablet 15:19: Q12H, # 8 H ermann [Keppra] 00 tab, 0 Refill(s) Acetaminoph Yes 650 mg = 2 Memoria en 325 MG 3-22 tab, PO, l Oral Tablet 15:19: Q6H, PRN [facility] 00 Pain Score 1-3, 0 Refill(s) Magnesium No Notes: Memori a Oxide 3-22 (Same as: l 09:21: Mag-Ox [place] 00 400) Magnesium oxide 492ck=[id number] g elemental magnesium Dose=____m g magnesium oxide (___mg elemental magnesium) Magnesium No Notes: Memori a Sulfate 3-22 WASTE: F/P l 09:21: - Sink; - Municipal Trash Bin Calcium No Notes: Memoria Gluconate 3-22 WASTE: F/P l 09:21: - Sink; - Municipal Trash Bin sodium No Notes: Memoria phosphate 3-22 Infuse l 09:21: over 4 00 hour. Do not infuse phosphorou s concurrent ly in the same line as TPN or IVF that contains calcium. For double lumen central lines, phosphorou s may be infused in a separate lumen from TPN. Potassium No Notes: Memori a Chloride 3-22 (Same as: l 09:21: K-Dur 20) "Do Not Crush" Give with food and full glass of water For patients unable to swallow tablet, dissolve in one half glass of water. Allow about 2 minutes for the tablets to disintegra te. Stir before giving to prepare slurry and administer . Please exclude Patient s with feeding tube less than 14 Occ[place] (Dobhoff, J-tube etc) and pediatric and patients. potassium No Notes: Memori a phosphate-s 3-22 (Same as: l odium 09:21: Phos-NaK) phosphate 00 Each 1.5 250 mg-280 gm pkt has mg-160 mg 250mg oral powder phosphorou for s. Mix reconstitut w/2.5oz ion water and stir. potassium No Notes: Memori a phosphate 3-22 (Same as: l 09:21: K Phosphate. ) Do not infuse phosphorou s concurrent ly in the same line as TPN or IVF that contains calcium. For double lumen central lines, phosphorou s may be infused in a separate lumen from TPN. 1 mMol phoshate has 1.47 mEq potassium Infuse over 4 hours sugammadex No Notes: Memor ia - (Same as: l 19:16: Brid[place]) sugammadex No Route: IV, M emoria (ANES) 06-28 Drug form: l 16:26: SOLN, ONCE, Stop date: 06/28/18 11:26:00 CDT niCARdipine No Route: IV, Memoria (ANES) 3- Drug form: l 16:26: INJ, ONCE, Stop date: 06/28/18 11:26:00 CDT ondansetron No Route: IV, Memoria (ANES) 06-28 Drug form: l 16:17: INJ, ONCE, Stop date: 06/28/18 11:17:00 CDT protamine No Route: IV, Me moria (ANES) 06-28 Drug form: l 16:12: INJ, ONCE, Stop date: 06/28/18 11:12:00 CDT diphenhydrA No Route: IV, Memoria MINE (ANES) 06-28 Drug form: l 15:52: INJ, ONCE, Stop date: 06/28/18 10:52:00 CDT Nicardipine No Notes: Boo swapnil 06-28 Same as: l 15:47: Cardene Concentrat ion: (0.1 mg/ 1 ml) phenylephri No Route: IV, Memoria ne (ANES) 06-28 Drug form: l 15:42: INJ, ONCE, Stop date: 06/28/18 10:42:00 CDT fentaNYL No Route: IV, Mem oria (ANES) 06-28 Drug form: l 14:52: INJ, ONCE, Stop date: 06/28/18 9:52:00 CDT propofol No Route: IV, Mem oria (ANES) 06-28 Drug form: l 14:52: INJ, ONCE, Stop date: 06/28/18 9:52:00 CDT rocuronium No Route: IV, M emoria (ANES) 06-28 Drug form: l 14:52: INJ, ONCE, Stop date: 06/28/18 9:52:00 CDT heparin No Route: IV, Boo swapnil (ANES) 06-28 Drug form: l 14:42: INJ, ONCE, Stop date: 06/28/18 9:42:00 CDT DepoMedrol No Route: IV, M emoria (ANES) 06-28 Drug form: l 14:32: INJ, ONCE, Stop date: 06/28/18 9:32:00 CDT iodixanol No 150 mL, Memor ia 06-28 Route: l 14:18: INTRAARTER IAL, Dosing Weight 82.273, kg, ONCE, Start date: 06/28/18 9:18:00 CDT, Stop date: 06/28/18 9:18:00 CDT Ondansetron 2019-0 No 4 mg, Memor ia 3-21 Route: l 14:16: IVP, ONCE, [place] 00 Dosing Weight 82.273, kg, PRN Nausea & Vomiting, Start date: 06/28/18 9:16:00 CDT Hydralazine 2019-0 No 10 mg, Boo swapnil 3-21 Route: l 14:16: IVP, Seth 00 Q20Min, Dosing Weight 82.273, kg, PRN Elevated BP, Start date: 06/28/18 9:16:00 CDT, Duration: 2 doses or times, Stop date: Limited # of times Fentanyl 2019-0 No 25 Memoria 3-21 microgram, l 14:16: Route: Seth 00 IVP, Q5Min, Dosing Weight 82.273, kg, PRN Pain Score 4-6, Priority: Routine, Start date: 06/28/18 9:16:00 CDT, Duration: 4 doses or times, Stop date: Limited # of times Flumazenil 2019-0 No 0.2 mg, Boo swapnil 3-21 Route: l 14:16: IVP, PRN, [place] 00 Dosing Weight 82.273, kg, PRN Benzodiaze pine Reversal, Initial dose, Start date: 06/28/18 9:16:00 CDT, Duration: 30 day, Stop date: 07/28/18 9:15:00 CDT Naloxone 2019-0 No 0.4 mg, Memori a 3-21 Route: l 14:16: IVP, Seth 00 Q2MIN, Dosing Weight 82.273, kg, PRN Narcotic Reversal, Start date: 06/28/18 9:16:00 CDT, Duration: 8 doses or times, Stop date: Limited # of times cetirizine 2019-0 No Notes: Memor ia 3-21 (Same As: l 14:00: Zyrtec) Seth 00 Sodium 2019-0 No Route: IV, Memor ia Chloride 3-21 Total l 0.9% IV 13:30: Volume: Seth (ANES) 1000 00 1,000, mL Start date: 06/28/18 8:30:00 CDT, Stop date: 06/28/18 9:30:00 CDT Levetiracet No Notes: Boo swapnil am 500 MG 3-21 (Same l Oral Tablet 02:00: as:Keppra) Seth [Keppra] heparin No Notes: Memoria 3-20 porcine l 21:00: heparin Dexamethaso No Notes: Boo swapnil ne 3-20 Give with l 17:00: food. Loratadine No Notes: 1 Mem oria 3-20 hr before l 16:24: meals (Same as: Claritin) Non-formul ann item cetirizine No Notes: Memor ia 3-20 (Same as: l 14:30: Zyrtec) Famotidine No Notes: Memor ia 3-20 (Same as: l 14:00: Pepcid) Metamucil No Notes: Memori a 3-20 (Same as: l 14:00: Metamucil) Mix in 8 oz liquid with meal. Loratadine No Notes: 1 Mem oria 3-20 hr before l 14:00: meals (Same as: Claritin) Non-formul ann item multivitami No Notes: Boo swapnil n 3-20 (Same l 14:00: as:Thera) WASTE: F/P - Black; E - Municipal Trash Bin Take with food. Folic Acid No Notes: Memor ia 3-20 (Same as: l 14:00: Folvite) Thiamine No Notes: Memoria 3-20 (Same As: l 14:00: Vitamin B1) methylPREDN No 125 mg, Mem oria ISolone 3-20 Route: l SODium 13:00: IVP, Drug Christiano n SUCCinate 00 form: INJ, Q8H, Dosing Weight 82.273, kg, Start date: 06/27/18 8:00:00 CDT, Duration: 24 hr, Stop date: 06/28/18 0:00:00 CDT Hydrocortis No Notes: Boo swapnil one 3-20 (Same as: l 12:19: Solu-AUDRA Seth 00 F) Benadryl No Notes: Memoria 3-20 (Same as: l 12:18: Benadryl) Benadryl No Notes: Memoria 3-20 (Same as: l 12:14: Benadryl) methylPREDN No Notes: Boo swapnil ISolone 3-20 (Same l SODium 12:14: as:Solu-ME Connie nn SUCCinate 00 DROL, A-Methapre d) Benadryl No 25 mg, Memoria 3-20 Route: IV, l 12:10: Q8H, Dosing Weight 82.273, kg, PRN Itching, Start date: 06/27/18 7:10:00 CDT, Duration: 30 day, Stop date: 07/27/18 7:09:00 CDT Lopressor No Notes: Memori a 3-20 (Same as: l 02:00: Toprol XL) May split tab, but do not crush. Doxazosin No Notes: Memori a 3-20 (Same as: l 02:00: Cardura) Allopurinol No Notes: Boo swapnil 3-20 (Same as: l 02:00: Zyloprim) normal No 1,000 mL, Memori a saline 0.9% 20 Rate: 100 l IV 1,000 mL 00:27: ml/hr, Infuse over: 10 hr, Route: IV, Dosing Weight 82.273 kg, Total Volume: 1,000, Start date: 06/26/18 19:27:00 CDT, Duration: 30 day, Stop date: 07/26/18 19:26:00 CDT, 2.04, m2 sirolimus No Notes: Memori a 3-19 (Same as: l 17:30: Rapamune) mycophenola No Notes: Boo swapnil te mofetil 3-19 SEPARATE l 17:30: ANTACIDS from Cellcept by 2 hrs. (Same As: CellCept) Sirolimus No Notes: Memori a 3-19 (Same as: l 17:30: Rapamune) [place] 00 sirolimus 1 Yes 1 mg = 1 Me moria mg oral 3-19 tab, PO, l tablet 17:06: QAM, 0 Seth 00 Refill(s) mycophenola Yes 250 mg = 1 Memoria te mofetil 3-19 cap, PO, l 250 mg oral 15:55: BID, 0 Herm fawn capsule 00 Refill(s) metoprolol Yes 50 mg = 1 Me moria 50 mg oral 3-19 tab, PO, l tablet, 15:55: BID, 0 Milton extended 00 Refill(s) release Folic Acid Yes 0.4 mg = 1 M emoria 0.4 MG Oral 3-19 tab, PO, l Tablet 15:55: Daily, # [place] 00 100 tab, 0 Refill(s) Vitamin D3 Yes 5,000 Memori a 5000 intl - IntlUnit = l units oral 15:55: 1 cap, PO, H ermann capsule 00 Daily, # 30 cap, 1 Refill(s) sirolimus 1 No 2 mg = 2 Me moria mg oral 3-19 tab, PO, l tablet 15:55: Daily, 0 Seth 00 Refill(s) PreserVisio Yes PO, Daily, Memoria n AREDS 2 06-26 0 l 15:55: Refill(s) Seth 00 allopurinol Yes 100 mg = 1 Memoria 100 mg oral 3-19 tab, PO, l tablet 15:55: BID, 0 [place] 00 Refill(s) doxazosin 2 Yes 2 mg = 1 Me moria mg oral 3-19 tab, PO, l tablet 15:55: Bedtime, 0 Connie nn 00 Refill(s) Fish Oil Yes 1,200 mg = Mem oria 1200 mg -19 1 cap, PO, l oral 15:55: TID, 0 [place] capsule 00 Refill(s) Levetiracet No Notes: Boo swapnil am 06-26 Same as l 14:00: Keppra [place] 00 Mix with 100 mL NS, LR or D5W MEDICATION WASTE Product Size: 500 mg Product Wasted: ___ mg Saline No Notes: Memoria Flush 0.9% 3-19 (Same as: l 14:00: BD Seth Posiflush) Docusate No Notes: Memoria Sodium 100 3-19 (Same as: l MG Oral 14:00: Colace) Seth Capsule 00 (Do Not Crush) sennosides, No Notes: Boo swapnil HALFWAY 3-19 (Same as: l 14:00: Senokot) Seth 00 Famotidine No Notes: Memor ia 3-19 (Same as: l 14:00: Pepcid) [place] 00 Can be dilute in 5-10cc NS IVP: Slow IV push over at least 2 minutes. pantoprazol No Notes: Boo swapnil e 3-19 Tablet l 14:00: should not Seth 00 be chewed or crushed. (Same as: Protonix) Tylenol No Notes: Do Memor ia 3-19 not exceed l 13:19: 4 gm/day. [place] 00 (Same as: Tylenol) Morphine No Notes: Memoria 3-19 (Same l 04:56: as:MORPhin [place] 00 e Sulfate) Insulin No 60 Memoria regular 3-19 units) l 04:56: WASTE: F/P Seth - Black; E - Municipal Trash Bin Stable for 28 days at room temperatur e Expires in days from ____Date Saline No Notes: Memoria Flush 0.9% 3-19 (Same as: l 04:56: BD [place] 00 Posiflush) Bisacodyl No Notes: Memori a 3-19 (Same As: l 04:56: Dulcolax, Milton Bisco-Lax) Labetalol No 10 mg, 2 Boo swapnil 3-19 mL, Route: l 04:56: IVP, Drug Seth 00 form: INJ, Q15Min, Dosing Weight 82.273, kg, PRN Hypertensi on, Start date: 06/25/18 23:56:00 CDT, Duration: 3 doses or times, Stop date: Limited # of times Ondansetron No Notes: Boo swapnil - (Same as: l 04:56: Zofran) Seth MEDICATION WASTE Product Size: 4 mg Product Wasted: ___ mg normal No 1,000 mL, Memori a saline 0.9% 06-26 Rate: 75 l IV 1,000 mL 04:55: ml/hr, Maynor augustine Infuse over: 13.3 hr, Route: IV, Dosing Weight 82.273 kg, Total Volume: 1,000, Start date: 06/25/18 23:55:00 CDT, Duration: 30 day, Stop date: 07/25/18 23:54:00 CDT, 2.04, m2 Acetaminoph No 650 mg, Mem oria en 06-26 Route: PO, l 02:35: Drug form: Seth TAB, ONCE, Dosing Weight 82.273, kg, Priority: STAT, Start date: 06/25/18 21:35:00 CDT, Stop date: 06/25/18 21:35:00 CDT Ondansetron No Notes: Boo swapnil 06-26 (Same as: l 01:35: Rubén) Seth MEDICATION WASTE Product Size: 4 mg Product Wasted: ___ mg Keppra No 1,000 mg, Memori a 06-26 Route: IV, l 00:43: ONCE, [place] 00 Dosing Weight 82.273, kg, Start date: 06/25/18 19:43:00 CDT, Stop date: 06/25/18 19:43:00 CDT sirolimus 2019- No [facility] 1 [facility] (RAPAMUNE) 05-14 TABLET BY Nelly es - 1 MG tablet 00:00: 00:00 MOUTH Medi padmini 00 :00 DAILY Center mycophenola 2017-04- No Status post TAKE ONE [facility] te 05-13 liver CAPSULE BY Frances - (CELLCEPT) 00:00: 00:00 transplanta MOUTH Medical 250 mg 00 :00 tion (HCC) TWICE Center capsule DAILY VIT A/VIT Yes 1{capsu QD Take [address] [facility] C/VIT 7-06 le} capsule by [facility] - E/ZINC/LISA 10:33: mouth Medic al ER (ICAPS 26 daily Center AREDS ORAL) A-Red capsule daily. . rivaroxaban Yes 15mg Take [address] (XARELTO) 7-06 by mouth [facility] - 15 mg Tab 10:32: daily as Medi padmini tablet 44 needed Center Take only when traveling on airplane. . allopurinol Yes 100mg QD Take [address] (ZYLOPRIM) 7-06 mg by [facility] - 100 MG 10:31: mouth Medical tablet 51 daily . [place] travoprost Yes 1[drp] QD Place [address] (TRAVATAN 7-06 drop into [facility] - Z) 0.004 % 10:31: both eyes Me dical Drop 51 nightly. [place] ophthalmic drops omega-3 2013-04 Yes 1g QD Take [address] fatty 1-10 by mouth [facility] - acids-fish 16:55: daily. Medic al oil 59 Center 340-1,000 mg Cap per capsule metoprolol Yes 50mg Q.5D Take [address] (TOPROL-XL) 6-19 by mouth 2 Melanie kes - 50 MG 24 hr 10:57: (two) Medic al tablet 05 times Center daily. cyanocobala Yes 1{tbl} Place [address] min, 6-19 tablet [facility]ukes - vitamin 10:57: under the Medic al B-12, 05 tongue. [place] (VITAMIN B-12) 1,000 mcg Subl multivitami Yes 1{capsu QD Take [address] n capsule 6-18 le} capsule by Luke s - 16:22: mouth Medical 24 daily. [place] Vital Signs Vital Name Observation Time Observation Value Comments Source Systolic blood 2019-05-21 10:33:00 168 mm[Hg] [facility] Diastolic blood 2019-05-21 10:33:00 98 mm[Hg] [facility] S [facility] Heart rate 2019-05-21 10:33:00 58 /min [facility] Body temperature 2019-05-21 10:33:[address] [facility] [facility] Respiratory rate 2019-05-21 10:33:00 18 /min [facility] Body height 2019-05-21 10:33:00 177.8 cm [facility] Body weight Measured 2019-05-21 10:33:00 82.872 kg [facility] BMI 2019-05-21 10:33:00 26.21 kg/m2 [facility] Oxygen saturation in 2019-05-21 10:33:00 98 /min [facility] - Arterial blood by Medical Ce nter Pulse oximetry Temperature Oral (F) 2018-06-29 17:30:00 97.0 F [facility] [place] Respitory Rate 2018-06-29 17:30:00 Memori al Seth Heart Rate 2018-06-29 17:30:00 [facility] Seth Systolic (mm Hg) 2018-06-29 17:30:00 Boo rial Seth Diastolic (mm Hg) 2018-06-29 17:30:00 Mem orial Seth Respitory Rate 2018-06-29 13:00:00 Memori al [place] Heart Rate 2018-06-29 13:00:00 [facility] Seth Temperature Oral (F) 2018-06-29 13:00:00 97.7 F [facility] [place] Systolic (mm Hg) 2018-06-29 13:00:00 Boo rial [place] Diastolic (mm Hg) 2018-06-29 13:00:00 Mem orial [place] Systolic (mm Hg) 2018-06-29 09:21:00 Boo rial [place] Diastolic (mm Hg) 2018-06-29 09:21:00 Mem orial [place] Respitory Rate 2018-06-29 09:21:00 Memori al Seth Heart Rate 2018-06-29 09:21:00 [facility] Seth Temperature Oral (F) 2018-06-29 09:21:00 97.3 F [facility] [place] Weight 2018-06-25 23:42:00 [facility] Seth BMI Calculated 2018-06-25 23:42:00 Memori al [place] Height 2018-06-25 23:42:00 180.34 cm [facility] Seth Procedures Procedure Date / Time Performing Clinician Source Performed HEPATITIS B SURFACE 2019-08-27 10:37:00 Dontrell Suggs [facility] HEPATITIS A ANTIBODY, 2019-08-27 10:37:00 Dontrell Suggs [facility] MAGNESIUM 2019-05-02 08:15:00 Belle Galvan [facility] BASIC METABOLIC PANEL 2019-05-02 08:15:00 [facility] HEPATIC FUNCTION PANEL 2019-05-02 08:15:[address] [facility] CBC W/PLT COUNT & AUTO 2019-05-02 08:15:00 Belle Galvan [facility] SIROLIMUS LEVEL 2019-05-02 08:15:00 Mandy [facility] REPORT OF PROCEDURE - 2019-04-25 09:40:49 Zayra Orozco [facility] HEPATIC FUNCTION PANEL 2019-04-25 05:30:00 Flower Grady [facility] BASIC METABOLIC PANEL 2019-04-25 05:30:00 Maribell Esparza [facility] () [facility] CBC (HEMOGRAM ONLY) 2019-04-25 05:30:[address] [facility] SIROLIMUS LEVEL 2019-04-25 05:30:00 Flower Grady [facility] US ABDOMEN COMPLETE 2019-04-25 00:50:[address] [facility] [place] ERCP 2019-04-24 17:15:00 Zayra Orozco [facility] ERCP,PAPILLOTOMY 2019-04-24 16:00:00 Zayra Orozco [facility] PROCEDURE W/ C-ARM 2019-04-24 16:00:00 Zayra Orozco [facility] ERCP,BALLOON DILATATION 2019-04-24 16:00:00 Zayra Orozco [facility] ERCP,BALLOON SWEEPING 2019-04-24 16:00:00 Zayra Orozco [facility] RAPID INFLUENZA A&B 2019-04-24 13:36:00 Donora Maribell [facility] RESPIRATORY PANEL [facility] 2019-04-24 13:30:00 Donora [facility] BLOOD CULTURE 2019-04-24 09:07:00 [facility] PROTHROMBIN TIME/INR 2019-04-24 06:12:00 [facility] BASIC METABOLIC PANEL 2019-04-24 06:12:[address] HEPATIC FUNCTION PANEL 2019-04-24 06:12:00 [facility] SIROLIMUS LEVEL 2019-04-24 06:12:00 [facility] CBC W/PLT COUNT & AUTO 2019-04-24 06:12:00 [facility] MAGNESIUM 2019-01-14 09:49:00 [facility] BASIC METABOLIC PANEL 2019-01-14 09:49:[address] HEPATIC FUNCTION PANEL 2019-01-14 09:49:00 [facility] CBC W/PLT COUNT & AUTO 2019-01-14 09:49:00 Mandy [facility] SIROLIMUS LEVEL 2019-01-14 09:49:00 Mandy [facility] Selective catheter 2018-06-28 13:25:00 [facility] [place] placement, common carotid or innominate artery, unilateral, any approach, with angiography of the ipsilateral extracranial carotid circulation and all associated radiological supervision and interpretation, includes angiography of the c Selective catheter 2018-06-28 13:25:00 [facility] Seth placement, external carotid artery, unilateral, with angiography of the ipsilateral external carotid circulation and all associated radiological supervision and interpretation (List separately in addition to code for primary procedure) Selective catheter 2018-06-28 13:25:00 [facility] Seth placement, internal carotid artery, unilateral, with angiography of the ipsilateral intracranial carotid circulation and all associated radiological supervision and interpretation, includes angiography of the extracranial carotid and ce Plan of Care Planned Activity Planned Date Details Comments Source Future Scheduled 2019-12-[address] [facility] Test 00:00:00 (Season Ended) [code = [facility] INFLUENZA VACCINE (Season Ended)] Future Scheduled 2013-12-[address] [facility] - Test 00:00:00 WELLNESS (YEAR 2 or [facility] FIRST YEAR if no IPPE) [code = MEDICARE ANNUAL WELLNESS (YEAR 2 or FIRST YEAR if no IPPE)] Future Scheduled 2013-09-26 HEMOGLOBIN A1C [code = [facility] H[facility]IN A1C] Medical Cent er Future Scheduled 2007-12-25 PNEUMOCOCCAL [address]+ [facility] 00:00:00 HIGH/HIGHEST RISK (1 [facility] 2 - PCV13) [code = PNEUMOCOCCAL 65+ HIGH/HIGHEST RISK (1 of 2 - PCV13)] Future Scheduled 1950 DIABETIC EYE EXAM [facility] 00:00:00 [code = DIABETIC EYE Medical Center EXAM] Future Scheduled [address] [facility] examination Medical Center (regime/therapy) [code = 828698465] Encounters Start End Encounter Admission Attending Care Care Encounter Source Date/Time Date/Time Type Type Clinicians Facility Department ID 2019-08-08 2019-08-08 Telephone BELLE Waggoner [id number] 00:00:00 00:00:00 Masha RODRIGUEZ 350.1.13.10 [facility] 4.2.7.2.686 [id number] 019 2019-08-08 2019-08-08 Telephone BELLE Denny [id number] 00:00:00 00:00:00 Janee RODRIGUEZ 350.1.13.10 [facility] 4.2.7.2.686 [id number] 019 2019-08-07 2019-08-07 Urgent Pob1, Acute [facility] 1.2.840.114 [id number] 15:03:55 16:05:36 [facility] 350.1.13.10 [place] 4.2.7.2.686 [facility] [id number] [address] 2019-08-07 2019-08-07 Emergency ROBERTA Rowan [id number] 14:32:28 15:30:00 Tyler Arnold 350.1.13.10 [place] 4.2.7.2.686 [place] [id number] 2018-07-12 2018-07-12 Outpatient Johnna [facility] 3 [id number] 11:15:00 23:59:59 Enrico Estes 00 2018-07-12 2018-07-12 Outpatient Johnna, 2.16.840. 2.16.840.1. [id number] 08:47:00 23:59:00 Enrico Estes [id number] 2018-07-02 2018-07-03 [id number] 09:41:00 23:59:59 00 2018-06-25 2018-06-29 Outpatient Dameon [facility] [id number] 18:40:00 13:30:00 Vanessa 77 Results Test Description Test Time Test Comments Results Result Comments Source Hepatitis B surface antibody 2019-08-28 14:05:00 Test Item Value Reference Range Interpretation Comme nts Hep B S Ab <5 > OR = L Patient does n ot have immunity to hepatitis B virus. (test code = 10 For additional information, please refer 51086-4) mIU/mL tohttp://educat ion.[employer]/faq/EIR507(This link is being p rovided for informational/educational purposes only). SHWETHA (test AN code = SHWETHA) UPDATE OR CORRECT ION HAS BEEN MADE TO NAME RAC (test Perform code = RAC) ing Organiz ation Informa tion: Site ID: IG Name: [facility] Address : [address] [place] [phone] Directo r: Dr. Gavin Bedoya [facility] Abnorma Interpretatio l n (test code = 73306-6) [facility], [id number] 14:05:00 Test Item Value Reference Range Interpretation Comments Hep A Ab, NON-REACTIVE NON-REACTIVE For additional Total (test information, pl [place] = [place] [address]-0) http://educatio n.[facility]. [employer]/ faq/MSJ003 (Thi s link is being provided for informational/e duca tional purposes only.) SHWETHA (test code AN UPDATE OR = SHWETHA) CORRECTION HAS BEEN MADE TO NAME RAC (test code Performing = RAC) Organization Information: Site ID: CORIN Name: [facility] Address: [address] [place] [phone] Director: Gavin Shwa [facility] Metabolic [id number] 18:21:00 Test Item Value Reference Interpretation Comments Range Glucose (test code 93 mg/dL 65-99 Fasting = ) reference inter jorge BUN (test code = 27 mg/dL 7-25 H 20100811) Creatinine (test 2.01 mg/dL 0.7-1.18 H For patient s >49 code = 20130603) years of age , the reference limit for Creatinine is approximately 1 3% higher for peopleidentifie d as -Mary n. eGFR If NonAfricn 31 > OR = 60 L Am (test code = mL/min/1.73m2 ) eGFR If Africn Am 36 > OR = 60 L (test code = mL/min/1.73m2 ) BUN/Creatinine 13 6- 22 (calc) Ratio (test code = ) Sodium (test code = 144 mmol/L 135-413 6526654) Potassium, Serum 4.4 mmol/L 3.5-5.3 (test code = 1679242) Chloride (test code 111 mmol/L 98-110 H = 3965585) Carbon Dioxide, 26 mmol/L 20-32 Total (test code = 3724903) Calcium, Serum 8.9 mg/dL 8.6-10.3 (test code = 0116535) SHWETHA (test code = FASTING:YESFASTIN SHWETHA) G: YES RAC (test code = Performing RAC) Organization Information: Site ID: RGA Name: [facility] Address: [address] [place] [phone] Director: Gavin Shaw Lab Interpretation Abnormal (test code = 49143-3) [facility] function [id number] 18:21:00 Test Item Value Reference Range Interpretation Comments Protein, Total, Serum 6.1 g/dL 6.1-8.1 (test code = 0746446) Albumin (test code = 3.6 g/dL 3.6-5.1 ) GLOBULIN (QUEST) (test 2.5 1.9- 3.7 g/dL code = 9516245) (calc) Albumin Globulin Ratio 1.4 1.0- 2.5 (calc) (test code = 1759-0) Bilirubin, Total (test 0.8 mg/dL 0.2-1.2 code = 9706169) Bilirubin, Direct (test 0.3 mg/dL < OR = 0.2 H code = 0486170) Bilirubin, Indirect 0.5 0.2- 1.2 mg/dL (test code = 3238121) (calc) Alkaline Phosphatase, S 77 U/L 40-115 (test code = 6768-6) AST (SGOT) (test code = 22 U/L 10-35 20100821) ALT (SGPT) (test code = 37 U/L 9-46 ) SHWETHA (test code = SHWETHA) FASTING:YESFASTING: YES RAC (test code = RAC) Performing Organization Information: Site ID: [facility] Name: [facility] Address: [address] [place] [phone] Director: Gavin Shaw Lab Interpretation Abnormal (test code = 34001-4) [facility]2020-[facility] 18:21:00 Test Item Value Reference Range Interpretation Comments Magnesium, Serum 1.8 mg/dL 1.5-2.5 (test code = 2645594) SHWETHA (test code = FASTING:YESFASTING: YES SHWETHA) RAC (test code = Performing Organization RAC) Information: Site ID: [facility] Name: [facility] Address: [address] [place] [phone] Director: Gavin Shaw [facility] with platelet count + automated [id number] 18:21:00 Test Item Value Reference Range Interpretation Comments WBC (test code = 5.4 3.8- 10.8 ) Thousand/uL RBC (test code = 4.93 4.20- 5.80 789-8) Million/uL Hemoglobin (test 14.4 g/dL 13.2-17.1 code = ) Hematocrit (test 42.3 % 38.5-50 code = ) MCV (test code = 85.8 fL 80-523 0635329) MCH (test code = 29.2 pg 27-33 ) MCHC (test code = 34.0 g/dL 32-36 ) RDW (test code = 13.5 % 11-15 ) Platelets (test code 237 140- 400 = ) Thousand/uL MPV (test code = 9.6 fL 7.5-12.5 7575567) # Neutros (test code 3418 1,500 - 7,800 = 20191103) cells/uL # Lymphs (test code 1323 850- 3,900 cells/uL = 731-0) # Monos (test code = 518 200- 950 cells/uL ) # Eos (test code = 108 15- 500 cells/uL 711-2) # Baso (test code = 32 0- 200 cells/uL 704-7) % Neutros (test code 63.3 % = ) % Lymphs (test code 24.5 % = 20191031) % Monos (test code = 9.6 % ) % Eos (test code = 2.0 % 20191029) % Baso (test code = 0.6 % 20191030) SHWETHA (test code = FASTING:YESFASTING: SHWETHA) YES RAC (test code = Performing RAC) Organization Information: Site ID: RGA Name: [facility] Address: [address] [place] [phone] Director: Gavin Shaw [facility]2020-01-25 18:21:00 Test Item Value Reference Range Interpretation Comments Rapamycin Trough 3.4 ng/mL 3-18 This test was (test code = developed and i 20091220) analytical performance characteristics have been determined by [facility]. It has not been cl eared or approved by theA. This as say has been valida ketty pursuant to the CLIA regulations and is used for clinic al purposes. SHWETHA (test code = FASTING:YESFASTING SHWETHA) : YES RAC (test code = Performing RAC) Organization Information: Site ID: [facility] Name: [facility] Address: [address] [place] [phone] Director: Gulshan Loco M.D., Ph.D [facility] - [facility]ine (Left Venipuncture) 2019-04-29 10:00:00 Test Item Value Reference Range Interpretation Comments Result (test code = No growth in 5 days 6463-4) [facility] HospitalBLOOD [id number] 10:00:00 Test Item Value Reference Range Interpretation Comments CULTURE (BEAKER) (test No growth in 5 days code = 1095) BLOOD [id number] 10:00:00 Test Item Value Reference Range Interpretation Comments CULTURE (BEAKER) (test No growth in 5 days code = 1095) SIROLIMUS [id number] 10:57:00 Test Item Value Reference Range Interpretation Comments SIROLIMUS LEVEL BLOOD (BEAKER) 4.6 ng/mL 5.0-15.0 L (test code = 806) Traveling Freight Agent ID Ene BASHIR MHEPATIC FUNCTION [id number] 06:53:00 Test Item Value Reference Range Interpretation Comments TOTAL PROTEIN (BEAKER) (test code = 6.2 gm/dL 6.0-8.3 770) ALBUMIN (BEAKER) (test code = 1145) 3.1 g/dL 3.5-5.0 L BILIRUBIN TOTAL (BEAKER) (test code 1.6 mg/dL 0.2-1.2 H = 377) BILIRUBIN DIRECT (BEAKER) (test 1.0 mg/dL 0.1-0.5 H code = 706) ALKALINE PHOSPHATASE (BEAKER) (test 134 U/L 40-150 code = 346) AST (SGOT) (BEAKER) (test code = 55 U/L 5-34 H 353) ALT (SGPT) (BEAKER) (test code = 105 U/L 6-55 H 347) Traveling Freight Agent ID Ene SHARP WBASIC METABOLIC [id number] 06:53:00 Test Item Value Reference Range Interpretation Comments SODIUM (BEAKER) 139 meq/L 136-145 (test code = 381) POTASSIUM (BEAKER) 4.0 meq/L 3.5-5.1 (test code = 379) CHLORIDE (BEAKER) 114 meq/L 98-107 H (test code = 382) CO2 (BEAKER) (test 17 meq/L 22-29 L code = 355) BLOOD UREA NITROGEN 31 mg/dL 7-21 H (BEAKER) (test code = 354) CREATININE (BEAKER) 2.07 mg/dL 0.57-1.25 H (test code = 358) GLUCOSE RANDOM 91 mg/dL 70-105 (BEAKER) (test code = 652) CALCIUM (BEAKER) 8.3 mg/dL 8.4-10.2 L (test code = 697) EGFR (BEAKER) (test 31 mL/min/1.73 ESTIMA KETTY GFR IS code = 1092) sq m NOT ACCURATE CREATININE CLEARANCE IN PREDICTING GLOMERULAR FILTRATION RATE . ESTIMATED GFR I S NOT APPLICABLE FOR DIALYSIS PATIEN TS. Traveling Freight Agent ID - ARON WCBC (Hemogram only)2019-04-25 06:00:00 Test Item Value Reference Range Interpretation Comments WBC (test code = 6690-2) 5.3 3.5- 10.5 K/L RBC (test code = 789-8) 4.67 4.63- 6.08 M/L MCHC (test code = 786-4) 33.1 32.3- 36.5 GM/DL Hematocrit (test code = 4544-3) 41.7 % 40.1-51 MCV (test code = 787-2) 89.3 fL 79-92.2 MCH (test code = 785-6) 29.6 pg 25.7-32.2 RDW (test code = 788-0) 14.3 % 11.6-14.4 Platelets (test code = 777-3) 109 150- 450 K/CU MM L MPV (test code = 01308-6) 9.6 fL 9.4-12.4 nRBC (test code = 413) 0 0- 0 /100 WBC Lab Interpretation (test code = Abnormal 47103-7) [facility])2019-04-25 06:00:00 Test Item Value Reference Range Interpretation Comments WHITE BLOOD CELL COUNT (BEAKER) 5.3 K/ L 3.5-10.5 (test code = 775) RED BLOOD CELL COUNT (BEAKER) 4.67 M/ L 4.63-6.08 (test code = 761) HEMOGLOBIN (BEAKER) (test code = 13.8 GM/DL 13.7-17.5 410) HEMATOCRIT (BEAKER) (test code = 41.7 % 40.1-51.0 411) MEAN CORPUSCULAR VOLUME (BEAKER) 89.3 fL 79.0-92.2 (test code = 753) MEAN CORPUSCULAR HEMOGLOBIN 29.6 pg 25.7-32.2 (BEAKER) (test code = 751) MEAN CORPUSCULAR HEMOGLOBIN CONC 33.1 GM/DL 32.3-36.5 (BEAKER) (test code = 752) RED CELL DISTRIBUTION WIDTH 14.3 % 11.6-14.4 (BEAKER) (test code = 412) PLATELET COUNT (BEAKER) (test 109 K/CU MM 150-450 L code = 756) MEAN PLATELET VOLUME (BEAKER) 9.6 fL 9.4-12.4 (test code = 754) NUCLEATED RED BLOOD CELLS 0 /100 WBC 0-0 (BEAKER) (test code = 413) U/S, ABDOMINAL, [id number] 03:49:00With DopplerReason for exam:- >elevated liver enzymes, s/p liver transplant in 1998, concern for ch oldocholithiasisFINAL REPORT INDICATION: elevated liver enzymes, s/p liver [...] hepatic: 0.6 IVC, Hepatic venous confluence, right HV, middle HV and left HV are patent. Additional findings: None. IMPRESSION: Postsurgical changes of an orthotopic liver transplant with unremarkable sonographic appearance of the transplant liver. Postsurgical changes of a cholecystectomy. Increased bilateral renal parenchymal echogenicity, nonspecific however can be seen with medical renal disease. Left nephrolithiasis however no hydronephrosis. Unremarkable hepatic Doppler examination. Signed: Maribell Alexis MDReport Verified Date/Time: 04/25/2019 03:49:02 US abdomen [id number] 03:49:00 Interface, External Ris In - 04/25/2019 3:52 AM CSTFINAL REPORT INDICATION: elevated liver enzymes, s/p liver transplant in 1998, concern for choldocholithiasis COMPARISON: NoneTECHNIQUE: Real-time millard-scale transabdominal and color and spectral Doppler ultrasound. FINDINGS:Liver: Size: 14.3cm. Echogenicity: Normal. Masses/lesions: None. Surface Nodularity: None. Intrahepatic bile ducts: Normal. Common bile duct: 0.7cm. MPV: 1.2cm. Gallbladder: Surgically absent. Pancreas: Head and uncinate process: Not well-seen secondary to poor acoustic windowing.. Body and tail: Not well-seen. Spleen: Size: 12.2cm. Echogenicity: Unremark able. Right kidney: Size: 12.1 x 5.9 x 5.0 cm. Parenchyma: Increased echogenicity.. Interpole cyst measuring up to 1.7 cm.. No stones. Hydronephrosis: None. Left kidney: Size: 8.4 x 3.6 x 3.0 cm. Parenchyma: Increased echogenicity.. No cysts. 0.9 cm echogenic focus in [...] hepatic: 0.6 IVC, Hepatic venous confluence, right HV, middle HV and left HV are patent. Additional findings: None. IMPRESSION: Postsurgical changes of an orthotopic liver transplant with unremarkable sonographicappearance of the transplant liver. Postsurgical changes of a cholecystectomy. Increased bilateral renal parenchymal echogenicity, nonspecific however can be seen with medical renal disease. Left nephrolithiasis however no hydronephrosis. Unremarkable hepatic Doppler examination. Signed: Maribell Alexis Verified Date/Time: 04/25/2019 03:49:02 [facility] JoseFL, [id number] 17:59:00 Reason for exam:->ercpFINAL REPORT A fluoroscopic unit was utilized for a procedure performed in the operating room. No interpretation was requested. Please refer to the operative report regarding findings. Please refer to PACS for patient radiation dose information. Signed: Romeo Purdy Verified Date/Time: 04/24/2019 17:59:55 Reading Location: [facility] B1 C013W Consult Reading Room [id number] 17:59:00Interface, External Ris In - 04/24/2019 6:02 PM CSTFINAL REPORT A fluoroscopic unit was utilized for a procedure performed in the operating room. No interpretation was requested. Please refer to the operative report regarding findings. Please refer to PACS for patient radiationdose information. Signed: Romeo Purdy MDReport Verified Date/Time: 04/24/2019 17:59:55 Reading Location: [facility] B1 C013W Consult Reading [facility] [id number] 17:42:00 Test Item Value Reference Range Interpretation Comments Human Metapneumovirus Not detected Not detected, (test code = 46246-7) Equivocal Rhinovirus (test code = Not detected Not detected, 20681-0) Equivocal INFLUENZA A (NO Not detected Not detected, SUBTYPE) (test code = Equivocal 48096-0) Influenza A subtype H1 (test code = 73272-5) Influenza A Subtype H3 (test code = 43874-1) Influenza A Subtype H1-2009 (test code = 18202-5) Influenza B (test code Not detected Not detected, = 32640-0) Equivocal Respiratory Syncytial Not detected Not detected, Virus (test code = Equivocal 70057-5) Parainfluenza Virus 1 Not detected Not detected, (test code = 24327-1) Equivocal Parainfluenza Virus 2 Not detected Not detected, (test code = 01874-7) Equivocal Parainfluenza virus 3 Not detected Not detected, (test code = 70024-6) Equivocal Parainfluenza Virus 4 Not detected Not detected, (test code = 10560-8) Equivocal Adenovirus (test code = Not detected Not detected, 96731-0) Equivocal Coronavirus 229E (test Not detected Not detected, code = 47054-3) Equivocal Coronavirus HKU1 (test Not detected Not detected, code = 79831-9) Equivocal Coronavirus NL63 (test Not detected Not detected, code = 04940-7) Equivocal Coronavirus OC43 (test Not detected Not detected, code = 05265-9) Equivocal Bordetella Pertussis Not detected Not detected, (test code = 42160-2) Equivocal Chlamydophila Not detected Not detected, Pneumoniae (test code = Equivocal 37189-1) Mycoplasma Pneumoniae Not detected Not detected, (test code = 52077-4) Equivocal SHWETHA (test code = SHWETHA) Other viruses and bacteria not targeted by this PCR panel cannot be excluded; therefore clinical correlation and follow up of serology, culture results, and other molecular studies is required. The results are not intended to be used as the sole means for clinical diagnosis or patient management decisions. This sample was tested at the [facility] Molecular Diagnostics Laboratory using the Auth0Array Respiratory Panel. It is FDA cleared and has been verified and approved by the [facility] Molecular Diagnostics Laboratory for clinical use on nasopharyngeal swab specimens. The performance of the FilmArray RP has not been established in individuals who received influenza vaccine. Recent administration of a nasal influenza vaccine may cause false positive results for Influenza A and/orInfluenza B. [facility] [id number] 17:42:00 Test Item Value Reference Range Interpretation Comments HUMAN METAPNEUMOVIRUS Not detected Not detected, (BEAKER) (test code = 2683) Equivocal RHINOVIRUS (BEAKER) (test Not detected Not detected, code = 2684) Equivocal INFLUENZA A (BEAKER) (test Not detected Not detected, code = 2685) Equivocal INFLUENZA A (NO SUBTYPE) (test code = 3606) INFLUENZA A SUBTYPE H1 (BEAKER) (test code = 2686) INFLUENZA A SUBTYPE H3 (BEAKER) (test code = 2687) INFLUENZA A SUBTYPE H1-2009 (BEAKER) (test code = 3198) INFLUENZA B (BEAKER) (test Not detected Not detected, code = 2688) Equivocal RESPIRATORY SYNCYTIAL VIRUS Not detected Not detected, (BEAKER) (test code = 3199) Equivocal PARAINFLUENZA VIRUS 1 Not detected Not detected, (BEAKER) (test code = 2691) Equivocal PARAINFLUENZA VIRUS 2 Not detected Not detected, (BEAKER) (test code = 2692) Equivocal PARAINFLUENZA VIRUS 3 Not detected Not detected, (BEAKER) (test code = 2693) Equivocal PARAINFLUENZA VIRUS 4 Not detected Not detected, (BEAKER) (test code = 3200) Equivocal ADENOVIRUS (BEAKER) (test Not detected Not detected, code = 3524) Equivocal CORONAVIRUS 229E (BEAKER) Not detected Not detected, (test code = 3201) Equivocal CORONAVIRUS HKU1 (BEAKER) Not detected Not detected, (test code = 3202) Equivocal CORONAVIRUS NL63 (BEAKER) Not detected Not detected, (test code = 3203) Equivocal CORONAVIRUS OC43 (BEAKER) Not detected Not detected, (test code = 3204) Equivocal BORDETELLA PERTUSSIS Not detected Not detected, (BEAKER) (test code = 3205) Equivocal CHLAMYDOPHILA PNEUMONIAE Not detected Not detected, (BEAKER) (test code = 3206) Equivocal MYCOPLASMA PNEUMONIAE Not detected Not detected, (BEAKER) (test code = 3207) Equivocal Other viruses and bacteria not targeted by this PCR panel cannot be excluded; therefore clinical correlation and follow up of serology, culture results, and other molecular studies is required. The results are not intended to be used as the sole means for clinical diagnosis or patient management decisions. This sample was tested at the [facility] Molecular Diagnostics Laboratory using the Auth0Array Respiratory Panel. It is FDA cleared and has been verified and approved by the [facility] Molecular Diagnostics Laboratory for clinical use on nasopharyngeal swab specimens.The performance of the FilmArrayRP has not been established in individuals who received influenza vaccine. Recent administration ofa nasal influenza vaccine may cause false positive results for Influenza A and/orInfluenza B.Rapid Influenza A&B [id number] 14:10:00 Test Item Value Reference Range Interpretation Comments Rapid Influenza A Antigen Negative Negative, Inconclusive (test code = 60835-1) Rapid influenza B Antigen Negative Negative, Inconclusive (test code = 02079-2) Lab Interpretation (test code Normal = 86389-0) [facility]&B [id number] 14:10:00 Test Item Value Reference Range Interpretation Comments RAPID INFLUENZA A AG (BEAKER) Negative Negative, Inconclusive (test code = 1622) RAPID INFLUENZA B AG (BEAKER) Negative Negative, Inconclusive (test code = 1623) SIROLIMUS [id number] 10:47:00 Test Item Value Reference Range Interpretation Comments SIROLIMUS LEVEL BLOOD (BEAKER) 5.5 ng/mL 5.0-15.0 (test code = 806) Traveling Freight Agent ID - PHILOMENA [employer] METABOLIC [id number] 07:14:00 Test Item Value Reference Range Interpretation Comments SODIUM (BEAKER) 141 meq/L 136-145 (test code = 381) POTASSIUM (BEAKER) 3.8 meq/L 3.5-5.1 (test code = 379) CHLORIDE (BEAKER) 109 meq/L 98-107 H (test code = 382) CO2 (BEAKER) (test 23 meq/L 22-29 code = 355) BLOOD UREA NITROGEN 37 mg/dL 7-21 H (BEAKER) (test code = 354) CREATININE (BEAKER) 2.11 mg/dL 0.57-1.25 H (test code = 358) GLUCOSE RANDOM 81 mg/dL 70-105 (BEAKER) (test code = 652) CALCIUM (BEAKER) 8.9 mg/dL 8.4-10.2 (test code = 697) EGFR (BEAKER) (test 31 mL/min/1.73 ESTIMA KETTY GFR IS code = 1092) sq m NOT ACCURATE CREATININE CLEARANCE IN PREDICTING GLOMERULAR FILTRATION RATE . ESTIMATED GFR I S NOT APPLICABLE FOR DIALYSIS PATIEN TS. Traveling Freight Agent ID - LASpecimen slightly ictericHEPATIC FUNCTION [id number] 07:14:00 Test Item Value Reference Range Interpretation Comments TOTAL PROTEIN (BEAKER) (test code = 7.1 gm/dL 6.0-8.3 770) ALBUMIN (BEAKER) (test code = 1145) 3.7 g/dL 3.5-5.0 BILIRUBIN TOTAL (BEAKER) (test code 3.6 mg/dL 0.2-1.2 H = 377) BILIRUBIN DIRECT (BEAKER) (test 2.5 mg/dL 0.1-0.5 H code = 706) ALKALINE PHOSPHATASE (BEAKER) (test 172 U/L 40-150 H code = 346) AST (SGOT) (BEAKER) (test code = 102 U/L 5-34 H 353) ALT (SGPT) (BEAKER) (test code = 152 U/L 6-55 H 347) Traveling Freight Agent ID - LASpecimen slightly ictericProthrombin time/[id number] 07:07:00 Test Item Value Reference Range Interpretation Comments Protime (test code = 13.6 11.9- 14.2 5902-2) seconds INR (test code = 1.1 <=5.9 6301-6) SHWETHA (test code = SHWETHA) Effective 09/05/2018: PT Reference Range ChangeNew: 11.9-14.2 Previous: 11.7-14.7 RECOMMENDED COUMADIN/WARFARIN INR THERAPY RANGESSTANDARD DOSE: 2.0-3.0 Includes: PROPHYLAXIS for venous thrombosis, systemic embolization; TREATMENT for venous thrombosis and/or pulmonary embolus.HIGH RISK: Target INR is 2.5-3.5 for patients wiht mechanical heart valves. Lab Interpretation Normal (test code = 52387-1) [facility] HospitalPROTHROMBIN TIME/[id number] 07:07:00 Test Item Value Reference Range Interpretation Comments PROTIME (BEAKER) (test code = 13.6 seconds 11.9-14.2 759) INR (BEAKER) (test code = 370) 1.1 <=5.9 Effective 09/05/2018: PT Reference Range ChangeNew: 11.9-14.2 Previous: 11.7- 14.7RECOMMENDED COUMADIN/WARFARIN INR THERAPY RANGESSTANDARD DOSE: 2.0-3.0 Includes: PROPHYLAXIS for venous thrombosis, systemic embolization; TREATMENT for venous thrombosis and/or pulmonary embolus.HIGH RISK: Target INR is2.5-3.5 for patients wiht mechanical heart valves.CBC with platelet count + automated [id number] 06:58:00 Test Item Value Reference Range Interpretation Comments WBC (test code = 6690-2) 4.5 3.5- 10.5 K/L RBC (test code = 789-8) 5.20 4.63- 6.08 M/L MCHC (test code = 786-4) 32.0 32.3- 36.5 GM/DL L Hematocrit (test code = 4544-3) 46.9 % 40.1-51 MCV (test code = 787-2) 90.2 fL 79-92.2 MCH (test code = 785-6) 28.8 pg 25.7-32.2 RDW (test code = 788-0) 14.4 % 11.6-14.4 Platelets (test code = 777-3) 124 150- 450 K/CU MM L MPV (test code = 27209-0) 9.7 fL 9.4-12.4 nRBC (test code = 413) 0 0- 0 /100 WBC % Neutros (test code = 429) 76 % % Lymphs (test code = 430) 13 % % Monos (test code = 431) 8 % % Eos (test code = 432) 2 % % Baso (test code = 437) 0 % # Neutros (test code = 670) 3.40 1.78- 5.38 K/L # Lymphs (test code = 414) 0.58 1.32- 3.57 K/L L # Monos (test code = 415) 0.37 0.30- 0.82 K/L # Eos (test code = 416) 0.10 0.04- 0.54 K/L # Baso (test code = 417) 0.02 0.01- 0.08 K/L Immature Granulocytes-Relative 0 % 0-1 (test code = 2801) Lab Interpretation (test code = Abnormal 20341-2) [facility] [place] COUNT & AUTO ZAEISMGUDGAF4938-45-69 06:58:00 Test Item Value Reference Range Interpretation Comments WHITE BLOOD CELL COUNT (BEAKER) 4.5 K/ L 3.5-10.5 (test code = 775) RED BLOOD CELL COUNT (BEAKER) 5.20 M/ L 4.63-6.08 (test code = 761) HEMOGLOBIN (BEAKER) (test code = 15.0 GM/DL 13.7-17.5 410) HEMATOCRIT (BEAKER) (test code = 46.9 % 40.1-51.0 411) MEAN CORPUSCULAR VOLUME (BEAKER) 90.2 fL 79.0-92.2 (test code = 753) MEAN CORPUSCULAR HEMOGLOBIN 28.8 pg 25.7-32.2 (BEAKER) (test code = 751) MEAN CORPUSCULAR HEMOGLOBIN CONC 32.0 GM/DL 32.3-36.5 L (BEAKER) (test code = 752) RED CELL DISTRIBUTION WIDTH 14.4 % 11.6-14.4 (BEAKER) (test code = 412) PLATELET COUNT (BEAKER) (test 124 K/CU MM 150-450 L code = 756) MEAN PLATELET VOLUME (BEAKER) 9.7 fL 9.4-12.4 (test code = 754) NUCLEATED RED BLOOD CELLS 0 /100 WBC 0-0 (BEAKER) (test code = 413) NEUTROPHILS RELATIVE PERCENT 76 % (BEAKER) (test code = 429) LYMPHOCYTES RELATIVE PERCENT 13 % (BEAKER) (test code = 430) MONOCYTES RELATIVE PERCENT 8 % (BEAKER) (test code = 431) EOSINOPHILS RELATIVE PERCENT 2 % (BEAKER) (test code = 432) BASOPHILS RELATIVE PERCENT 0 % (BEAKER) (test code = 437) NEUTROPHILS ABSOLUTE COUNT 3.40 K/ L 1.78-5.38 (BEAKER) (test code = 670) LYMPHOCYTES ABSOLUTE COUNT 0.58 K/ L 1.32-3.57 L (BEAKER) (test code = 414) MONOCYTES ABSOLUTE COUNT (BEAKER) 0.37 K/ L 0.30-0.82 (test code = 415) EOSINOPHILS ABSOLUTE COUNT 0.10 K/ L 0.04-0.54 (BEAKER) (test code = 416) BASOPHILS ABSOLUTE COUNT (BEAKER) 0.02 K/ L 0.01-0.08 (test code = 417) IMMATURE GRANULOCYTES-RELATIVE 0 % 0-1 PERCENT (BEAKER) (test code = 2801) LAWVVABMZCFA7030-35-74 14:23:0012.5[facility] OyntfzcKQZPNIEMICPV9188-10-87 14:23:007.8[facility] KgrpyfaCDVYBNLBCTSS7222-03-51 14:23:0036[facility] PGLQELUYVPVO7473-33-62 14:23:32728Ttwzdbgj JpiotawWEXPIZTIPRKC9323-35-20 14:23:0019[facility] PhcobxtJPIUYDOAWSYL7009-11-27 14:23:001.79[facility] HOCUKCGLANJF0089-93-84 14:23:66884Amfcnjkw ZbhgwgoPFBOXBYJTKWN6936-72-60 14:23:17199Acilrddh AsakuuhNCXWKIGCVTJW8636-84-64 14:23:0026[facility] QFOZEGHPTBWB3563-35-58 14:23:003.5[facility] HermannCHEM RUSKA0676-26-49 05:21:00 1.9[facility] HermannCHEM YTWCA1469-90-74 05:21:001.4[facility] HermannHEMATOLOGY 2018-06-29 05:21:007.9[facility] ArzlsexFYJLNDKENG0013-36-27 05:21:0089.4[facility] UdthhrjGIAEXAEJCM9823-01-66 05:21:000.6[facility] XbjrdioXRMHRXIAER5791-80-02 05:21:006.6[facility] SutmzlbYFUNSRIKQF1095-54-07 05:21:000.2[facility] BWBYBCHGPJ1416-86-69 05:21:000.1[facility] LteyxbwQOPSPVLSLQ0443-67-51 05:21:002.6 [facility] MautrhwFMHTVSOQIC6668-83-97 05:21:14413Piahohuu HermannHEMATOLOGY 2018-06-29 05:21:0016.3[facility] XjrafmpTKPTLPTXFV0009-68-54 05:21:007.8[facility] XttlffmYQQATWAXNJ4297-31-77 05:21:0033.4[facility] TiskwxcHFZYVRPEQN5938-15-91 05:21:0090.7[facility] RpugqnrKCHYFYOQYZ5168-34-86 05:21:0035.9[facility] PFYRFNZRNE9500-66-36 05:21:00 Test Item Value Reference Range Interpretation Comments MCH (test code = MCH) 30.3 pg 27.0-31.0 [facility] QrybmoqKNVCOWYOVK0898-30-87 05:21:0012.0[facility] HermannHEMATOLOGY 2018-06-29 05:21:007.4[facility] GjdwrrbDNMECDKWBD9867-42-58 05:21:003.96[facility] HermannPARATHYROID SVXOSMF0430-10-41 05:21:001.08[facility] HermannPARATHYROID SQTBWCG0260-55-30 05:21:001.09[facility] HermannDRUG GPUINM5542-35-13 01:58:00 Negative *NA*(06/28/18 8:58 PM)[facility]annDRUG NIMWUU4997-00-61 01:58:00 Negative *NA*(06/28/18 8:58 PM)[facility] HermannDRUG OKILKD2539-65-20 01:58:00 Negative *NA*(06/28/18 8:58 PM)[facility]annDR[facility] KTTHZM3398-61-86 01:58:00 Negative *NA*(06/28/18 8:58 PM)[facility]annDRUG LUGSJA7519-08-85 01:58:00 Negative *NA*(06/28/18 8:58 PM)[facility]annDR[facility] VKEKIE0042-97-70 01:58:00See Note *NA*(06/28/18 8:58 PM)[facility]annDR[facility] SIHWMU7320-61-34 01:58:00Negative *NA*(06/28/18 8:58 PM)[facility]annDRUG PZIFEM6977-39-30 01:58:00Negative *NA*(06/28/18 8:58 PM)[facility]ann[facility] AND FXGNZ9449-24-69 01:58:00<1 [facility] AND XQYBX8934-84-95 01:58:00 Test Item Value Reference Range Interpretation Comments UA Spec Grav (test code = UA Spec 1.030 1 Grav) [facility] CXFBR3009-51-92 01:58:00Marked *ABN*(06/28/18 8:58 PM) [facility] QKNII2434-18-09 01:58:00 Test Item Value Reference Range Interpretation Comments UA pH (test code = UA pH) 5.0 1 5.0-8.0 [facility] FNHJU2758-51-97 01:58:00Negative *NA*(06/28/18 8:58 PM) [facility] KNFSJ6770-95-69 01:58:00Negative *NA*(06/28/18 8:58 PM) [facility] WLKAA9398-83-05 01:58:00Yellow *NA*(06/28/18 8:58 PM) [facility] MFZIZ0560-04-68 01:58:00Small *ABN*(06/28/18 8:58 PM) [facility] TCOHH1082-79-94 01:58:00Negative *NA*(06/28/18 8:58 PM) [facility] YYWNX7711-27-72 01:58:001[facility] AND BGOFO6046-84-84 01:58:00None Seen (06/28/18 8:58 PM)[facility] NXSUN7440-31-40 01:58:00Moderate *ABN*(06/28/18 8:58 PM)[facility] AND JKDAJ3121-73-70 01:58:00Negative (06/28/18 8:58 PM)[facility] TSXST8662-57-75 01:58:00<1.0[facility] GvlaqruYBCSPFJDEE2999-73-17 14:22:00 Test Item Value Reference Range Interpretation Comments POC Activated Clotting Time (test code 233 s = POC Activated Clotting Time) [facility] AbxkomgNYXLKIBSXX1792-85-75 13:24:00 Test Item Value Reference Range Interpretation Comments POC Activated Clotting Time (test code 245 s = POC Activated Clotting Time) [facility] SzrvnvgYFISJKRSJX4447-65-17 12:59:00 Test Item Value Reference Range Interpretation Comments POC Activated Clotting Time (test code 143 s = POC Activated Clotting Time) [facility] AUHLRLM2650-98-88 08:46:00Negative (06/28/18 3:46 AM) [facility] HermannCHEM ZVIVH2945-36-28 08:46:001.9[facility] HermannCHEM PANEL 2018-06-28 08:46:001.9[facility] KnntzyhUHKZGUHUCTCE3517-34-21 08:46:0013.0 [facility] XywilutLEWSRCNGHPFA1059-21-33 08:46:0037[facility] HermannELECTROLYTES 2018-06-28 08:46:008.4[facility] MkbivumRVKCXBDSNQYO9575-22-45 08:46:0026[facility] VqnnwpeQAVAWDQNDVUY7947-23-60 08:46:96310Ohkaiddw UulyjlwSLECZMRSLLKY9702-05-20 08:46:004.0[facility] YnkunaxRCSBSCAPFMXF5964-02-70 08:46:38726Vfsxhmmw [facility] NBZYKGONEVZP8249-55-04 08:46:001.76[facility] CjmlhfkZUEYBSZJXHDK6460-21-10 08:46:75534Ehxlrblp GcdrtbcJTNOJOMSUGXU9194-31-36 08:46:0021[facility] XPYVKGPTWN0801-71-07 08:46:00 Test Item Value Reference Range Interpretation Comments INR (test code = INR) 1.07 1 0.85-1.17 [facility] ResourcesTwwhrhwXDQYFLPZWJ5912-54-03 08:46:00 Test Item Value Reference Range Interpretation Comments PT (test code = PT) 13.7 s 12.0-14.7 [facility] ResourcesRchtgvcJGVKXIRCRH8310-69-98 08:46:00 Test Item Value Reference Range Interpretation Comments PTT (test code = PTT) 27.4 s 22.9-35.8 [facility] SmuhbmpMCKAGYHOEJ8702-85-07 08:46:00 Test Item Value Reference Range Interpretation Comments Coag Index (test code = Coag Index) 3.2 1 <=3.0 [facility] ResourcesDxyldpeYWQQNBOCRI7656-05-74 08:46:00See Note (06/28/18 3:46 AM)[facility] ResourcesBhjlvzqXPAQLSGWXO3421-61-43 08:46:009.8[facility] UjqkxcgVHHNLDXAEP3453-89-59 08:46:000.0Metxrial CtockmoCIHEONHTIN6866-46-48 08:46:00 Test Item Value Reference Range Interpretation Comments Max Amp (test code = Max Amp) 66.3 mm 50.0-70.0 [facility] ResourcesUlrnlseSWGAEQHGYG0968-53-16 08:46:00 Test Item Value Reference Range Interpretation Comments K-time (test code = K-time) 1.7 min 1.0-3.0 [facility] ResourcesUvfzgalFBOUAWVHGN9270-67-51 08:46:00 Test Item Value Reference Range Interpretation Comments Angle (test code = Angle) 68.4 degrees 53.0-72.0 [facility] ResourcesIuzcfrsTWHGWXKWRG9503-49-77 08:46:00 Test Item Value Reference Range Interpretation Comments R-time (test code = R-time) 2.6 min 5.0-10.0 [facility] ResourcesCacyvsuQOKLTDZRWL6490-45-84 08:46:008.2[facility]HE[facility] 2018-06-28 08:46:0033.7[facility] DzyrkweWRLYNRUNGY9623-89-38 08:46:00 Test Item Value Reference Range Interpretation Comments MCH (test code = MCH) 30.3 pg 27.0-31.0 [facility] BzrqrxaBPSNNOHVQC2873-51-30 08:46:0090.1[facility] HermannHEMATOLOGY 2018-06-28 08:46:0012.7[facility] FyrxddaSQCUFMPEOM0532-87-64 08:46:004.18[facility] GoluttkZHUGVBWIBI4930-19-31 08:46:0037.7[facility] FddtxqwTKQKSADXVD9028-53-22 08:46:0016.1[facility] OrqykvuSNXYHEAIRZ9407-33-60 08:46:008.6[facility] ZWGOHDMEDA9170-18-75 08:46:01406Asuluehr JimadyuFMJYTVODZF5127-97-97 08:46:000.9 [facility] RexhqyjOQCABTGPKS9249-05-93 08:46:000.1[facility] HermannHEMATOLOGY 2018-06-28 08:46:000.6[facility] UwxiggpYVMTSKFOLX1010-46-77 08:46:007.2[facility] XvaehvnOCRTLBRRBI3743-06-00 08:46:000.1[facility] PzcuxrzBTFYTMIQGE5380-24-70 08:46:000.9[facility] IilpmrfDZSGFEMMDQ8912-93-35 08:46:0010.5[facility] WMTGLJZNOB9455-18-83 08:46:0087.9[facility] LzngehxNIJSMQVKSF3204-95-16 08:46:00 Normal (06/28/18 3:46 AM)[facility] OywbphxTYZGSMYQGQ5100-80-10 08:46:00Normal (06/28/18 3:46 AM)[facility] HermannPARATHYROID TJEFQVA5546-21-84 08:46:001.15 [facility] HermannPARATHYROID XBTQMRB5468-02-28 08:46:001.13[facility] HermannCHEM GFFGJ9959-07-75 05:21:0035[facility] HermannCHEM GRKWX6906-02-96 05:21:008.7 [facility] HermannCHEM GRRTR4815-05-41 05:21:0024[facility] HermannCHEM PANEL 2018-06-27 05:21:83249Gkgwrjmb HermannCHEM ICBTS9744-26-84 05:21:001.85[facility] HermannCHEM ZEKKV2311-98-92 05:21:004.0[facility] HermannCHEM JIFYD2303-45-04 05:21:99239Gdihzywy HermannCHEM WZSWB5512-35-97 05:21:0025[facility] HermannCHEM FGPHO5344-96-38 05:21:0088[facility] HermannCHEM XAVDZ2050-69-04 05:21:0011.0 [facility]annCHEM LGAAB4564-30-29 05:21:003.3[facility] HermannCHEM PANEL 2018-06-27 05:21:002.0[facility] ItyvareXIBLECWYPV2863-38-50 05:21:000.1[facility] ZmohkytXAEVSNFONS0795-72-41 05:21:000.1[facility] JjzhrcvTBFPMGNHOD7974-89-13 05:21:00Normal (06/27/18 12:21 AM)[facility] XesxiucWASXLOZZSR9646-00-45 05:21:00 64.6[facility] OelbubzLQDETOOTET4376-62-07 05:21:0025.7[facility] HermannHEMATOLOGY 2018-06-27 05:21:002.0[facility] KnvmhodIDNVNQPCIE0508-00-57 05:21:006.8[facility] MgnzdhiKDXAQEBGVQ2500-61-82 05:21:004.1[facility] HzeynemFFELUYPREA8974-58-24 05:21:000.9[facility] CrlkbghCMCRMYLQKS4939-91-16 05:21:000.4[facility] TVVNWDHOAN2781-20-71 05:21:001.6[facility] UlkxfloKRVMNWVEKF2966-14-48 05:21:00 Normal (06/27/18 12:21 AM)[facility] QjfstqwQTBWISBKHB4598-21-26 05:21:000.0 [facility] OypizrbVYLITFJTDL6403-97-53 05:21:0010.5[facility] HermannHEMATOLOGY 2018-06-27 05:21:00 Test Item Value Reference Range Interpretation Comments Coag Index (test code = Coag Index) 3.2 1 <=3.0 [facility] ResourcesIidnanlLBNVGJLCAO2128-05-58 05:21:00 Test Item Value Reference Range Interpretation Comments K-time (test code = K-time) 1.4 min 1.0-3.0 [facility] ResourcesLhsfdbpPGFTUSLNBO9582-45-63 05:21:00 Test Item Value Reference Range Interpretation Comments Angle (test code = Angle) 70.7 degrees 53.0-72.0 [facility] ResourcesGmpdjusXRVBNOVEOU2957-77-71 05:21:00 Test Item Value Reference Range Interpretation Comments Max Amp (test code = Max Amp) 67.8 mm 50.0-70.0 [facility] ResourcesCcibcycKTXVIMNCOS7978-71-30 05:21:00 Test Item Value Reference Range Interpretation Comments R-time (test code = R-time) 3.2 min 5.0-10.0 [facility]CtbjeiaYVNZJADVSM5988-58-78 05:21:00See Note (06/27/18 12:21 AM)[facility]RcyqekaZLLIEFJITP9837-56-21 05:21:00 Test Item Value Reference Range Interpretation Comments INR (test code = INR) 1.05 1 0.85-1.17 [facility] ResourcesNkkghhnYMNJQWZOOY6864-96-85 05:21:00 Test Item Value Reference Range Interpretation Comments PT (test code = PT) 13.5 s 12.0-14.7 [facility] ResourcesVooohbcFNEKRTWVSB2519-14-83 05:21:00 Test Item Value Reference Range Interpretation Comments PTT (test code = PTT) 33.5 s 22.9-35.8 [facility] ResourcesDkrmzdfYPPGVLXMYW6002-84-26 05:21:00 Test Item Value Reference Range Interpretation Comments MCH (test code = MCH) 30.3 pg 27.0-31.0 [facility] ResourcesVnhmjusLKIKURHKZS8414-80-11 05:21:0090.2[facility] HermannHEMATOLOGY 2018-06-27 05:21:007.7[facility] RyjeweqLTJTLRAQDI3399-49-96 05:21:61084Xqzozuad GivrqciXRQLOQTOEN7233-92-05 05:21:0033.5[facility] HtforqoLPMFXAEAHP3159-96-32 05:21:0016.1[facility] JcpwpxxZRTUBHHCLY2011-32-11 05:21:006.3[facility] ARIDKVSTFL1925-89-60 05:21:0013.3[facility] RthynzlIYQZXCZEBK2770-75-86 05:21:00 39.6[facility] OmokdpfHOXDJYKGVU3944-19-94 05:21:004.39[facility] HermannPARATHYROID HYCVHLJ6222-15-55 05:21:001.12[facility] HermannPARATHYROID KTNYWTK7785-44-84 05:21:001.15[facility] HermannCHEM WZANC9900-47-96 13:36:000.7[facility] HermannCHEM QUWJH8126-36-30 13:36:0080[facility] HermannCHEM NAAGY2911-03-55 13:36:002.6 [facility]annCHEM GNXWE9571-83-04 13:36:003.4[facility] HermannCHEM PANEL 2018-06-26 13:36:00 Test Item Value Reference Range Interpretation Comments A/G Ratio (test code = A/G Ratio) 0.8 1 0.7-1.6 [facility]annCHEM CWMKZ0839-45-51 13:36:0016[facility] HermannCHEM PANEL 2018-06-26 13:36:0013[facility] HermannCHEM BYZAE6106-71-55 13:36:00 Test Item Value Reference Range Interpretation Comments B/C Ratio (test code = B/C Ratio) 15 1 6-25 [facility]annCHEM IKOWM1396-08-31 13:36:006.0[facility] HermannTOXICOLOGY 2018-06-26 13:36:003.9[facility] HermannBACTERIAL - WEVNWPGN8363-35-95 10:59:00 Negative (06/26/18 5:59 AM)[facility] HermannBLOOD BANK DTTIYKJ5522-51-76 00:59:00 Negative (06/25/18 7:59 PM)[facility] HermannCARDIAC NPZOLUJ4690-21-91 00:59:00 <0.02[facility] HermannCHEM TNAUK4514-85-70 00:59:001.2[facility] WMYETOENZL3278-93-67 00:59:000.2[facility] BwvghqlNOAFMGSMVJ7302-10-63 00:59:000.0 [facility] AppvqgaGKEJCFJVCN6374-43-28 00:59:00 Test Item Value Reference Range Interpretation Comments R-time Rapid (test code = R-time 0.4 min 0.4-0.7 Rapid) [facility] CenterYbaqzawVFZNYPYXGZ6551-85-83 00:59:00 Test Item Value Reference Range Interpretation Comments K-time Rapid (test code = K-time 0.8 min 0.6-2.3 Rapid) [facility] CenterVbtqheqBRQPZYUGMB1410-02-33 00:59:0015.7[facility] 2018-06-26 00:59:00 Test Item Value Reference Range Interpretation Comments Max Amplitude Rapid (test code = Max 76 mm 52-71 Amplitude Rapid) [facility] CenterRhanoedTORZNJKLMS7562-48-58 00:59:00 Test Item Value Reference Range Interpretation Comments Split Point Rapid (test code = Split 0.4 min Point Rapid) [facility] CenterUhzdfmoDKFUKQCPEY8986-15-60 00:59:00 Test Item Value Reference Range Interpretation Comments ACT (TEG) Rapid (test code = ACT (TEG) 89 s 86-118 Rapid) [facility] CenterZclphbaCAIUOOBWKS0334-69-35 00:59:00 Test Item Value Reference Range Interpretation Comments Angle Rapid (test code = Angle 82 degrees 64-80 Rapid) [facility] CenterGahbrbuVNBNMVRIVA2948-43-00 00:59:00 Test Item Value Reference Range Interpretation Comments PTT (test code = PTT) 37.2 s 22.9-35.8 [facility] CenterItcwokdKYODQGRFOZ6952-92-83 00:59:00 Test Item Value Reference Range Interpretation Comments INR (test code = INR) 1.00 1 0.85-1.17 [facility] CenterUkjnjkdGGYNEBMFWH0044-55-73 00:59:00 Test Item Value Reference Range Interpretation Comments PT (test code = PT) 13.0 s 12.0-14.7 [facility]
[2019-10-11] MEDS ORDERED: LIDOCAINE 1% W/EPI 1:100,000 MDV 20 ML VIAL ONE (12:33)
[2019-10-11] MEDS: BUPIVACA 0.5%/EPI 0.0005%/PF 30 ML VIAL ONE ×2 (12:36→13:50)
[2019-10-11] MEDS ORDERED: LIDOCAINE 1% MPF 5 ML VIAL ONE (13:49)
[2019-10-11] MEDS ORDERED: propofoL 200 MG/20 ML VIAL IV ONE (13:49)
[2019-10-11 16:43] VITALS: BP 172/69; TEMP 98.3; O2SAT 100
--- NOTE | 2019-10-11 20:11 | OP ---
Date of Procedure: 10/11/2019 Surgeon: Eunice Watkins MD Preoperative Diagnosis: Squamous cell carcinoma, left external ear, ruba. Postoperative Diagnosis: Squamous cell carcinoma, left external ear, ruba. Procedure: Wide local excision of malignant skin cancer, total defect 1.5 cm with application of allograft with TheraSkin. Indication For Procedure: Mr. Shi is a 78-year-old with a history of solid organ, liver transplant, on immunosuppression. 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 He was referred to me for excision and reconstruction. We discussed the various options and he elected for excision in the OR with application of allograft for closure. The patient had preoperative COVID testing 7 days prior to his scheduled procedure. On the day of procedure, the results were not available. I discussed with the patient the risks and benefits of the procedure without confirmatory COVID testing. The patient reported he had a negative test approximately 3 weeks ago and had been well isolated due to his underlying comorbid conditions. He expressed understanding of the potential risks and elected to proceed with the surgery. Description Of Procedure: The patient was brought to the operating room. He was placed under monitored anesthesia care. Sedation with propofol was administered. During this brief sedation, the left ruba was cleaned with alcohol and the area was injected with 0.5% Marcaine with epinephrine. The area was then prepped with Betadine and draped in a sterile fashion. After confirming, the supplemental oxygen was turned off and evacuating the field with vacuum, The Bovie electrocautery was used to excise the specimen. The lesion itself was approximately 4 mm and located in the inferior aspect of the left ruba of the pinna. Full-thickness skin was incised using the Bovie electrocautery. A suture was placed at the superior most aspect, indicating 12 o'clock and the specimen was elevated using Bovie electrocautery from the conchal cartilage and sent to pathology. The pathologist confirmed that the peripheral margins were all free from tumor, but the deep margin was very close. We discussed that the next tissue layer included the conchal cartilage and elected for resection of the conchal cartilage without frozen section. I returned to the operating room and using Bovie electrocautery, I excised the cartilage, which lay at the base of the surgical wound. The specimen was marked using surgical marker to indicate the true margin and was sent to pathology as a permanent section. Small area of bleeding was controlled using Bovie electrocautery. The TheraSkin which had been previously prepared according to manufacture's instructions was trimmed to appropriate size and laid over the defect. Due to the location of the defect, suturing the graft in place was felt to be the very difficult and decision was made to apply a bolster without suturing. A Xeroform gauze was conformed into a ball and used to tightly pack and occlude the ruba, providing direct firm pressure to the allograft. Silk sutures were then placed circumferentially to secure the bolster. Once completed, the patient was transported back to Day Surgery for further recovery. Care instructions were discussed with the patient. He will return to Dr. Watkins office in 10 days for removal of bolster. He is specifically instructed to keep the ear dry over the next [address] Watkins for any concerns. LKAEISHA/YASMINE Voice ID: [id number] Report ID: [id number] NIKOS
== END 2019-10-11 16:05 | disposition home or self-care (01) ==
LOC: OR 09:47
PROVIDERS: ATTEND Otolaryngology
PROC: 0HR Skin and Breast, Replacement (ICD-10-PCS; 2019-10-11)
PROC: 0HR3XK3 Replacement of Left Ear Skin with Nonautologous Tissue Substitute, Full Thickness, External Approach (ICD-10-PCS; principal; 2019-10-11 12:15)
DX: C44.229 Squamous cell carcinoma of skin of left ear and external auricular canal (principal); I10 Essential (primary) hypertension; K75.4 Autoimmune hepatitis; Z11.59 Encounter for screening for other viral diseases; Z94.4 Liver transplant status; Z91.013 Allergy to seafood; Z91.041 Radiographic dye allergy status; Z79.899 Other long term (current) drug therapy
CPT/HCPCS: 93005; 88331; 88332; 88305 ×2; 11642; 15275; J2704; J7120

== ENCOUNTER 2022-12-23 19:25 | Observation (INO) | payer OTHER ==
[2022-12-23 19:51] LABS: Absolute Lymphocytes (CBC) 0.5 K/uL (0.7-4.9); Lymphocytes % 8.4 % (15.3-44.8); MCV 92.2 fL (80-100); MPV 7.4 fL (7.6-11.3); Platelets 100 thou/uL (152-406); RBC Red Blood Cell Count 4.12 M/uL (4.33-5.43)
[2022-12-23] MEDS ORDERED: NA CHLORIDE 0.9% 500 ML ONE (19:57)
[2022-12-23] MEDS ORDERED: ONDANSETRON 4 MG/2 ML VIAL ONE (19:57)
[2022-12-23 20:07] LABS: Potassium 3.8 mEq/L (3.5-5.1)
[2022-12-23 20:16] LABS: Bilirubin Direct 0.2 mg/dL (0-0.2); Bilirubin Indirect, Calculated 0.3 mg/dL (0.2-0.8); Bilirubin Total 0.5 mg/dL (0.2-1.0); Protein, Total 7.2 g/dL (6.4-8.2)
--- NOTE | 2022-12-23 20:27 | EDPHYS ---
Physician Documentation [facility] Name: Yoni Shi Age: 81 yrs Sex: Male : 1940 Arrival Date: 12/23/2022 Time: 19:25 Bed 3 Private MD: ED Physician Flo Hanks HPI: 12/23 19:48 This 81 yrs old Male presents to ER via EMS with complaints of Vomiting, COVID+. ms3 19:48 81-year-old male with past medical history of colon cancer, hypertension, liver ms3 transplant 20 years ago, pulmonary embolism presents via [facility] for vomiting and COVID. EMS notes patient has been unable to get out of bed. On exam patient denies nausea, vomiting, diarrhea, pain, shortness of breath. EMS notes they administered 900 mL of normal saline, gave 4 mg Zofran. Patient's temperature was initially 100.3 and decreased to 98.9 in route. Historical: - Allergies: 19:34 Iodinated Contrast Media - IV Dye; iw - PMHx: 19:34 colon cancer; Hypertension; liver transplant; Pulmonary Embolism; Renal Disease; iw - PSHx: 21:11 Colectomy; liver transplant; iw - Immunization history:: Adult Immunizations unknown. - Social history:: Smoking status: unknown. ROS: 19:48 Neck: Negative for injury, pain, and swelling, Cardiovascular: Negative for chest pain, ms3 and palpitations. Respiratory: Negative for shortness of breath, cough, wheezing, and pleuritic chest pain. 19:48 Constitutional: Positive for malaise. 19:48 Abdomen/GI: Positive for nausea and vomiting. 19:48 All other systems are negative. Exam: 19:48 Constitutional: This is a well developed, well nourished patient who is awake, alert, ms3 and in no acute distress. Head/Face: Normocephalic, atraumatic. Neck: Trachea midline, no cervical lymphadenopathy. Supple, full range of motion without nuchal rigidity, or vertebral point tenderness. No Meningismus. Chest/axilla: Normal chest wall appearance and motion. Nontender with no deformity. Cardiovascular: Regular rate and rhythm with a normal S1 and S2. No gallops, murmurs, or rubs. Normal PMI, no JVD. No pulse deficits. Respiratory: Lungs have equal breath sounds bilaterally, clear to auscultation and percussion. No rales, rhonchi or wheezes noted. No increased work of breathing, no retractions or nasal flaring. Abdomen/GI: Soft, non-tender, with normal bowel sounds. No distension or tympany. No guarding or rebound. No evidence of tenderness throughout. Skin: Warm, dry with normal turgor. Normal color with no rashes, no lesions, and no evidence of cellulitis. MS/ Extremity: Pulses equal, no cyanosis. Neurovascular intact. Full, normal range of motion. 20:56 ECG was reviewed by the Attending Physician. ms3 Vital Signs: 19:33 BP 198 / 89; Pulse 91; Resp 19; Temp 99; Pulse Ox 98% on R/A; iw 19:52 BP 189 / 88; Pulse 93; Resp 20 S; Pulse Ox 97% on R/A; iw 20:46 BP 151 / 88; Pulse 89; Resp 19; Pulse Ox 95% on R/A; iw MDM: 19:48 Patient medically screened. ms3 19:48 Differential diagnosis: Nonspecific abd pain, COVID. ms3 20:26 Data reviewed: vital signs, nurses notes, lab test result(s), and as a result, I will ms3 admit patient. Consideration of Admission/Observation Patient was admitted/placed on observation. Management of patient was discussed with the following: Hospitalist: Discussed case with Dr Combs and he agrees with admission. Would like 4 mg Decadron PO daily. I considered the following discharge prescriptions or medication management in the emergency department Medications were administered in the Emergency Department. See MAR. Historians other than the Patient: EMS: [facility]. Counseling: I had a detailed discussion with the patient and/or guardian regarding the historical points, exam findings, and any diagnostic results supporting the discharge/admit diagnosis, lab results, the need for further work-up and treatment in the hospital. 20:33 Management of patient was discussed with the following:. ms3 12/23 19:37 Order name: CBC with Diff; Complete Time: 19:55 ms3 12/23 19:37 Order name: BMP; Complete Time: 20:13 ms3 12/23 19:51 Order name: LFT's; Complete Time: 20:18 ms3 12/23 20:32 Order name: Procalcitonin pf1 12/23 20:32 Order name: CRP pf1 12/23 19:37 Order name: CXR XRAY; Complete Time: 20:31 ms3 12/23 19:46 Order name: EKG; Complete Time: 19:47 mc5 12/23 19:46 Order name: EKG - Nurse/Tech; Complete Time: 19:46 mc5 EC:56 Rate is 93 beats/min. Rhythm is regular. QRS [place] is Normal. [place] interval is prolonged. ms3 QRS interval is normal. Clinical impression: 1st degree heart block and With unifocal PVCs. Interpreted by me. Reviewed by me. Administered Medications: 19:49 Drug: NS 0.9% IV 500 ml Route: IV; Rate: bolus; Site: left forearm; iw 20:46 Follow up: IV Status: Completed infusion iw 19:49 Drug: Ondansetron IVP 4 mg Route: IVP; Site: left forearm; iw 20:46 Follow up: Response: No adverse reaction iw 20:46 Drug: Dexamethasone PO 4 mg Route: PO; iw 21:15 Follow up: Response: No adverse reaction iw Disposition Summary: 12/23/22 20:26 Hospitalization Ordered Hospitalization Status: Observation ms3 Provider: Checo Combs ms3 Location: Telemetry/MedSurg (observation) ms3 Condition: Stable ms3 Problem: new ms3 Symptoms: are unchanged ms3 Bed/Room Type: Standard ms3 Room Assignment: 418(12/23/22 21:03) cg Diagnosis - SARS-associated coronavirus as the cause of diseases classified elsewhere ms3 - Essential (primary) hypertension ms3 - Acute on chronic renal failure ms3 Forms: - Medication Reconciliation Form ms3 - SBAR form ms3 - Leadership Thank You Letter ms3 Signatures: Dispatcher [employer] Ramya Marie RN RN iw Ken Eason FNP-C FNP-Rochelle Trejo RN RN cg Flo Hanks DO DO ms3 Vee Paiz 5 Corrections: (The following items were deleted from the chart) 20:34 20:26 Management of patient was discussed with the following: Hospitalist: Discussed ms3 case with Dr Combs and he agrees with admission. ms3 21:03 20:26 ms3 cg
--- NOTE | 2022-12-23 20:27 | ER ---
Nurse's Notes [facility] Name: Yoni Shi Age: 81 yrs Sex: Male : 1940 Arrival Date: 12/23/2022 Time: 19:25 Bed 3 Private MD: Diagnosis: SARS-associated coronavirus as the cause of diseases classified elsewhere;Essential (primary) hypertension;Acute on chronic renal failure Presentation: 12/23 19:34 Chief complaint: EMS states: COVID+ since , was seen at [facility] and d/c home, iw now has been vomiting and dizzy , unable to walk at home. Coronavirus screen: Client presents with at least one sign or symptom that may indicate coronavirus-19. Ebola Screen: Patient negative for fever greater than or equal to 101.5 degrees Fahrenheit, and additional compatible Ebola Virus Disease symptoms Patient denies exposure to infectious person. Patient denies travel to an Ebola-affected area in the 21 days before illness onset. No symptoms or risks identified at this time. Initial Sepsis Screen: Does the patient meet any 2 criteria? HR > 90 bpm. Does the patient have a suspected source of infection?. Risk Assessment: Do you want to hurt yourself or someone else? Patient reports no desire to harm self or others. Onset of symptoms was December 15, 2022. 19:34 Method Of Arrival: EMS: [facility] iw 19:34 Acuity: LIV 3 iw 19:38 Care prior to arrival: Medication(s) given: Normal saline infusion, 1000 mL, IV iw initiated. 20 GA, in the left forearm, Glucose check: 148. Historical: - Allergies: 19:34 Iodinated Contrast Media - IV Dye; iw - PMHx: 19:34 colon cancer; Hypertension; liver transplant; Pulmonary Embolism; Renal Disease; iw - PSHx: 21:11 Colectomy; liver transplant; iw - Immunization history:: Adult Immunizations unknown. - Social history:: Smoking status: unknown. Screenin:40 Abuse screen: Denies threats or abuse. Denies injuries from another. Nutritional iw screening: No deficits noted. Tuberculosis screening: No symptoms or risk factors identified. Assessment: 19:39 General: Appears uncomfortable, Behavior is calm. Neuro: Level of Consciousness is iw awake, alert, obeys commands. Cardiovascular: Patient's skin is warm and dry. Rhythm is PVC's. Respiratory: Respiratory effort is even, unlabored. GI: Abdomen is flat, non-distended. Derm: Skin is fragile, is thin, Skin is Skin is pink, warm \T\ dry. Vital Signs: 19:33 BP 198 / 89; Pulse 91; Resp 19; Temp 99; Pulse Ox 98% on R/A; iw 19:52 BP 189 / 88; Pulse 93; Resp 20 S; Pulse Ox 97% on R/A; iw 20:46 BP 151 / 88; Pulse 89; Resp 19; Pulse Ox 95% on R/A; iw ED Course: 19:29 Patient arrived in ED. iw 19:31 Flo Hanks DO is Attending Physician. ms3 19:38 Triage completed. iw 19:38 Arm band placed on. iw 19:40 Initial lab(s) drawn, by me, sent to lab. mc5 19:49 Ramya Foster RN is Primary Nurse. iw 20:15 CXR XRAY In Process Unspecified. EDMS 20:26 Checo Combs MD is Hospitalizing Provider. ms3 21:07 Patient has correct armband on for positive identification. Provided Education on: iw admission . 21:07 No provider procedures requiring assistance completed. Patient admitted, IV remains in iw place. Administered Medications: 19:49 Drug: NS 0.9% IV 500 ml Route: IV; Rate: bolus; Site: left forearm; iw 20:46 Follow up: IV Status: Completed infusion iw 19:49 Drug: Ondansetron IVP 4 mg Route: IVP; Site: left forearm; iw 20:46 Follow up: Response: No adverse reaction iw 20:46 Drug: Dexamethasone PO 4 mg Route: PO; iw 21:15 Follow up: Response: No adverse reaction iw Medication: 21:07 VIS not applicable for this client. iw Outcome: 20:26 Decision to Hospitalize by Provider. ms3 21:07 Condition: good iw 21:37 Admitted to Med/surg via stretcher. iw 21:37 Discharge instructions given to patient, Instructed on the need for admit, Demonstrated understanding of instructions. 21:38 Patient left the ED. iw Signatures: Dispatcher [employer] EDMS Ramya Foster RN RN iw Flo Hanks DO DO ms3 [place], [place] [id number]
--- NOTE | 2022-12-23 20:30 | RAD REPORT ---
EXAM DESCRIPTION: [place] Single View12/23/2022 8:13 pm CLINICAL HISTORY: Cough COMPARISON: none FINDINGS: Interstitial pattern within the lungs appears mildly prominent. Heart is normal size IMPRESSION: Interstitial pattern within the lungs appears mildly prominent. This may indicate a mild bilateral pneumonia
--- OUTSIDE RECORDS SUMMARY | 2022-12-23 20:32 | XMS REPORT | Continuity of Care Document ---
:1940 Author Organization [facility] t Address [address] [place] [address] [place] [id number] Care Team Providers Name Role Phone YUMIKO OTONIEL VALDOVINOS Primary Care Physician Unavailable AVINASH VO Attending Clinician Unavailable AVINASH VO Attending Clinician Unavailable JAI STRONG Attending Clinician Unavailable Kvng GALLOWAY Attending Clinician Unavailable Kvng Mejía Attending Clinician Pob, [facility] Main Attending Clinician Unavailable Henrique Thomas MD Attending Clinician HENRIQUE THOMAS Attending Clinician Unavailable Doctor Unassigned, [place] Attending Clinician Unavailable DC BASS Attending Clinician Unavailable Dc Bass MD Attending Clinician [phone] VINCE JUNG Attending Clinician Unavailable Vince Jung MD Attending Clinician Dunia CARLISLE, Dori Shaw Attending Clinician Unavailable Idania Barnett RN Attending Clinician Unavailable Belle Galvan MD Attending Clinician ALYSON WALKER Attending Clinician Unavailable Fredy Sy Attending Clinician Alyson Walker MD Attending Clinician Brandon MERCER, Shantell Aldana Attending Clinician SALINA LADD Attending Clinician Unavailable Edilson CARLISLE, Masha Raymundo Attending Clinician Unavailable Janee Denny RN Attending Clinician Unavailable [facility] Attending Clinician Unavailable Reddy Thibodeaux MD Attending Clinician Tyler Rowan DO Attending Clinician TYLER ROWAN Attending Clinician Unavailable LIVIA MARLEY Attending Clinician Unavailable Enrico Oropeza Attending Clinician Vanessa Xiao Attending Clinician VINCE JUNG Admitting Clinician Unavailable ALYSON WALKER Admitting Clinician Unavailable Alyson Walker MD Admitting Clinician LIVIA MARLEY Admitting Clinician Unavailable Travis Simms Jr Admitting Clinician Payers Payer Name Policy Type Policy Number Effective Date Expiration Date [facility] [id number] 2022 [facility] 00:00:00 PPO Problems Condition Condition Condition Status Onset Resolution Last Treating Co mments Source Name Details Category Date Date Treatment Clinician Date Nausea and Nausea and Disease Active U nivers vomiting, vomiting, 4-20 ity [place] d vomiting 00 Me dical type type Branch SDH SDH Diagnosis Active 2018-06-25 Mem oria Active 06-25 20:14:00 l 06/25/2018 00:00: Christiano hernandez [address] HEAD HEAD Diagnosis Active 2018-06-29 Mem oria INJURY INJURY 06-25 03:49:00 l WITH SDH WITH SDH 00:00: Christiano hernandez Active 00 06/25/2018 [facility] Diarrhea Diarrhea Disease [facility] patient patient 00:[facility]: Medical 00 [place] Skin Skin Disease Active Last [facility] St cancer cancer 10-13 Assessanatoly Daniels 00:00: t & Plan: Medical 00 [facility] g of this note might be different from the original. 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 He had ulcerativ e colitis s/p colectomy with J-pouch. We have referred him to a [facility] IBD specialis t. Chronic Chronic Disease Active Last [facility] renal renal 10-13 [facility] insufficie insufficie 00:00: t & Plan: Medical ncy ncy 00 [facility] g of this note might be different from the original. 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 Continue follow-up . Chest pain Chest pain Disease Active 2013-[address] 1-10 [facility] 00:00: Medical 00 Center Status Status Disease Active Last [facility] post liver post liver 09-26 [facility] transplant transplant 00:00: t & Plan: Medical ation ation 00 [facility] g of this note might be different from the original. 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 Synthetic function of the allograft is well preserved . HTN HTN Disease Active Last [facility] (hypertens (hypertens 09-26 [facility] ion) ion) 00:00: t & Plan: Medical 00 [facility] g of this note might be different from the original. Blood pressures elevated. Patient has follow-up with Dr. Taylor. Diabetes Diabetes Disease Active Last [facility] 00:00: t & Plan: Medical 00 [facility] g of this note might be different from the original. Well controlle d on current regimen. Immunosupp Immunosupp Disease Active Last [facility] ression ression 09-26 [facility] 00:00: t & Plan: Medical 00 [facility] g of this note might be different from the original. He is on sirolimus and Cellcept. Screening Screening Disease Active Last [facility] for skin for skin 09-26 [facility] cancer cancer 00:00: t & Plan: Medical 00 [facility] g of this note might be different from the original. Patient has regular follow up with a dermatolo gist to evaluate and biopsy abnormal skin lesions. TRAUM TRAUM Diagnosis Active 2018-06-29 Mem oria SUBRAC HEM SUBRAC HEM 03:49:00 l W LOC OF W LOC OF Christiano n UNSP UNSP DURATION, DURATION, Active [facility] No known No known Disease Unive rs active active ity of problems problems [facility] Allergies, Adverse Reactions, Alerts Allergy Allergy Status Severity Reaction(s) Onset Inactive Treating Comm ents Source Name Type Date Date Clinician Iodine Drug Active Hives [facility] And Allergy 09-25 [facility] Iodide 00:00: Medical Containi 00 Center ng Products IODINE Allergy Active Hives [facility] AND 6-18 IODIDE 00:00: CONTAINI 00 NG PRODUCTS Iodine Propensi Active Hives Univers And ty to 18 ity of Iodide adverse 00:00: [place] Containi reaction 00 Medica l ng s Branch Products IODINE Drug Active Hives Univers AND Class 18 ity of IODIDE 00:00: [place] CONTAINI 00 Medical NG Branch PRODUCTS iodine iodine Active Sukhwinder Ann NO KNOWN Drug Active Univers ALLERGIE Class ity of S [facility] Family History Family Member Diagnosis Comments Start Date Stop Date Source Natural mother Liver cancer [facility] Social History Social Habit Start Date Stop Date Quantity Comments Source Gender [facility] Sexual orientation [facility] History SDOH University o f Alcohol Std Drinks [place] [facility] History SDOH University o f Alcohol Binge [place] [facility] History SDOH Social Unive rsity of Connections [facility] Med ical Together Branch History SDOH Social Unive rsity of Connections [facility] Medical Branch History SDOH Social Unive rsity of Connections [place] [facility] Membership Branch History SDOH Social Unive rsity of Connections [place] [facility] Meetings Branch History of Social 2022-09-20 2022-09-20 Univers ity of function 00:00:00 00:00:00 [place] [facility] Tobacco use and 2022-09-20 2022-09-20 Smokeless Universit y of exposure 00:00:00 00:00:00 tobacco non-user [facility] dical Branch History SDOH 2022-07-28 2022-07-28 1 University o f Alcohol Frequency 00:00:00 00:00:00 [place] M edical Branch History SDOH Social 2022-07-28 2022-07-28 5 Unive rsity of Connections Phone 00:00:00 00:00:00 [place] M edical Branch History SDOH Social 2022-07-28 2022-07-28 3 Unive rsity of Connections Living 00:00:00 00:00:00 [place] [facility] History SDOH 2022-07-28 2022-07-28 3 University o f Physical Activity 00:00:00 00:00:00 [place] M edical DPW Branch History SDMO 2022-07-28 2022-07-28 2 University o f Physical Activity 00:00:00 00:00:00 [place] M edical MPS Branch History SDOH 2022-07-28 2022-07-28 5 University o f Financial 00:00:00 00:00:00 [place] [facility] History SDOH Food 2022-07-28 2022-07-28 1 Univers ity of Worry 00:00:00 00:00:00 [place] [facility] History SDOH Food 2022-07-28 2022-07-28 1 Univers ity of Scarcity 00:00:00 00:00:00 [place] [facility] History SDOH 2022-07-28 2022-07-28 2 University o f Transport Med 00:00:00 00:00:00 [place] Medic al [facility] History SDOH 2022-07-28 2022-07-28 2 University o f Transport Non-Med 00:00:00 00:00:00 [place] M edical Branch History SDMO 2022-07-28 2022-07-28 2 University o f Housing Unable to 00:00:00 00:00:00 [place] [facility] edical Pay Branch History SDMO 2022-07-28 2022-07-28 1 University o f Housing Places 00:00:00 00:00:00 [place] Medi padmini Lived Branch History SDMO 2022-07-28 2022-07-28 2 University o f Housing Homeless 00:00:00 00:00:00 [place] Me dical Last Year Branch Exposure to 2022-07-17 2022-07-27 Not sure University of SARS-CoV-2 (event) 00:00:00 21:30:00 [facility] Branch Alcohol intake 2019-05-21 2019-05-[address] [facility] 00:00:00 00:00:00 non-drinker of Medical Ce nter alcohol (finding) Sex Assigned At [address] 00:00:00 00:00:00 Medical Center Smoking Status Start Date Stop Date Source Tobacco smoking consumption unknown [facility] Social History [facility] Medications Ordered Filled Start Stop Current Ordering Indication Dosage Frequency Signature Comments Components Source Medication Medication Date Date Medication? Clinician (SIG) Name Name ondansetron 2022-0 2022- Yes 4mg 4 mg, Univ ers (ZOFRAN-ODT 12-15 Oral, ity of ) 19:45: 07:44 ONCE, 1 [place] disintegrat 00 :00 dose, On Medi padmini ing tablet Rosalind 12/15/22 Bra nch 4 mg at 1445, Routine ondansetron 2022-0 2022- No 4mg 4 mg, Slow Univers (ZOFRAN 12-15 IV Push, ity of (PF)) 18:45: 18:40 ONCE, 1 [place] injection 4 00 :00 dose, On Medi padmini mg Rosalind 12/15/22 Branch at 1345, CHERIE ondansetron 2022-0 Yes [id number] 4mg Take 1 Univers 4 mg 12-15 tablet by ity of disintegrat 00:00: mouth [place] ing tablet 00 every 8 Medica l (eight) Branch hours as needed for Nausea and Vomiting (N/V). benzonatate 2022-0 Yes [id number] 200mg Take 1 Univers 200 mg - capsule by ity of capsule 00:00: mouth 3 [place] 00 (three) Medical times Branch daily as needed for Cough for up to 20 doses. sirolimus 2022-0 Yes 1mg QD Take [address] [facility] (RAPAMUNE) 6-12 tablet (1 Luke s 1 MG tablet 00:00: mg total) M edical 00 by mouth Center in the morning. mycophenola 2022-0 Yes Status post 250mg Q.5D Take [address] te 6-12 liver capsule [facility] (CELLCEPT) 00:00: transplanta (250 mg Medical 250 mg 00 tion (HCC) total) by Ce nter capsule mouth in the morning and 1 capsule (250 mg total) before bedtime. sirolimus 2022-0 2023- No TAKE 1 [facility] (RAPAMUNE) 4-24 06-12 TABLET BY Nelly es 1 MG tablet 00:00: 00:00 MOUTH Medi padmini 00 :00 DAILY Center [facility] Yes 1g Take 1 g Univers oil-omega-3 4-23 by mouth. ity of fatty acids 16:24: [place] 340-1,000 23 Medical mg capsule Branch multivitami Yes 1{capsu Take 1 U nivers n capsule 4-23 le} capsule by ity of 16:24: mouth. [place] [address] Medical Branch Cyanocobala Yes 1{tbl} Place 1 U nivers min 1,000 4-23 tablet ity of mcg 16:24: under the [place] sublingual 23 tongue. Medica l tablet Branch allopurinoL Yes 100mg Take 100 U nivers 100 mg 4-23 mg by ity of tablet 16:24: mouth. [place] [address] Medical Branch metoprolol Yes 50mg Take 50 mg U nivers succinate 4-23 by mouth. ity o f XL 50 mg 24 16:24: [place] hr tablet 23 Medical [place] fish Yes 1g Take 1 g Univers oil-omega-3 4-23 by mouth. ity of fatty acids 16:24: [place] 340-1,000 23 Medical mg capsule Branch multivitami Yes 1{capsu Take 1 U nivers n capsule 4-23 le} capsule by ity of 16:24: mouth. [address] Cyanocobala Yes 1{tbl} Place 1 U nivers min 1,000 4-23 tablet ity of mcg 16:24: under the [place] sublingual 23 tongue. Medica l tablet Branch allopurinoL Yes 100mg Take 100 U nivers 100 mg 4-23 mg by ity of tablet 16:24: mouth. [place] [address] Medical Branch metoprolol Yes 50mg Take 50 mg U nivers succinate 4-23 by mouth. ity o f XL 50 mg 24 16:24: [place] hr tablet 23 Medical [place] fish Yes 1g Take 1 g Univers oil-omega-3 4-23 by mouth. ity of fatty acids 16:24: [place] 340-1,000 23 Medical mg capsule Branch multivitami Yes 1{capsu Take 1 U nivers n capsule 4-23 le} capsule by ity of 16:24: mouth. [place] 23 Medical Branch Cyanocobala Yes 1{tbl} Place 1 U nivers min 1,000 4-23 tablet ity of mcg 16:24: under the [place] sublingual 23 tongue. Medica l tablet Branch allopurinoL Yes 100mg Take 100 U nivers 100 mg 4-23 mg by ity of tablet 16:24: mouth. [place] [facility] metoprolol Yes 50mg Take 50 mg U nivers succinate 4-23 by mouth. ity o f XL 50 mg 24 16:24: [place] hr tablet 23 Medical Branch fish Yes 1g Take 1 g Univers oil-omega-3 4-23 by mouth. ity of fatty acids 16:24: [place] 340-1,000 23 Medical mg capsule Branch multivitami Yes 1{capsu Take 1 U nivers n capsule 4-23 le} capsule by ity of 16:24: mouth. [place] [facility] Cyanocobala Yes 1{tbl} Place 1 U nivers min 1,000 4-23 tablet ity of mcg 16:24: under the [place] sublingual 23 tongue. Medica l tablet Branch allopurinoL Yes 100mg Take 100 U nivers 100 mg 4-23 mg by ity of tablet 16:24: mouth. [place] [address] Medical Branch metoprolol Yes 50mg Take 50 mg U nivers succinate 4-23 by mouth. ity o f XL 50 mg 24 16:24: [place] hr tablet 23 Medical Branch fish Yes 1g Take 1 g Univers oil-omega-3 4-23 by mouth. ity of fatty acids 16:24: [place] 340-1,000 23 Medical mg capsule Branch multivitami Yes 1{capsu Take 1 U nivers n capsule 4-23 le} capsule by ity of 16:24: mouth. [place] [address] Medical Branch Cyanocobala Yes 1{tbl} Place 1 U nivers min 1,000 4-23 tablet ity of mcg 16:24: under the [place] sublingual 23 tongue. Medica l tablet Branch allopurinoL Yes 100mg Take 100 U nivers 100 mg 4-23 mg by ity of tablet 16:24: mouth. [place] [address] Medical Branch metoprolol Yes 50mg Take 50 mg U nivers succinate 4-23 by mouth. ity o f XL 50 mg 24 16:24: [place] hr tablet 23 Medical Branch fish Yes 1g Take 1 g Univers oil-omega-3 4-23 by mouth. ity of fatty acids 16:24: [place] 340-1,000 23 Medical mg capsule Branch multivitami Yes 1{capsu Take 1 U nivers n capsule 4-23 le} capsule by ity of 16:24: mouth. [place] [address] Medical Branch Cyanocobala Yes 1{tbl} Place 1 U nivers min 1,000 4-23 tablet ity of mcg 16:24: under the [place] sublingual 23 tongue. Medica l tablet Branch allopurinoL Yes 100mg Take 100 U nivers 100 mg 4-23 mg by ity of tablet 16:24: mouth. [place] [address] Medical Branch metoprolol Yes 50mg Take 50 mg U nivers succinate 4-23 by mouth. ity o f XL 50 mg 24 16:24: [place] hr tablet 23 Medical Branch fish Yes 1g Take 1 g Univers oil-omega-3 4-23 by mouth. ity of fatty acids 16:24: [place] 340-1,000 23 Medical mg capsule Branch multivitami Yes 1{capsu Take 1 U nivers n capsule 4-23 le} capsule by ity of 16:24: mouth. [place] [address] Medical [place] Cyanocobala Yes 1{tbl} Place 1 U nivers min 1,000 4-23 tablet ity of mcg 16:24: under the [place] sublingual 23 tongue. Medica l tablet Branch allopurinoL Yes 100mg Take 100 U nivers 100 mg 4-23 mg by ity of tablet 16:24: mouth. [place] [address] Medical Branch metoprolol Yes 50mg Take 50 mg U nivers succinate 4-23 by mouth. ity o f XL 50 mg 24 16:24: [place] hr tablet 23 Medical Branch fish Yes 1g Take 1 g Univers oil-omega-3 4-23 by mouth. ity of fatty acids 16:24: [place] 340-1,000 23 Medical mg capsule Branch multivitami Yes 1{capsu Take 1 U nivers n capsule 4-23 le} capsule by ity of 16:24: mouth. [place] [address] Medical Branch Cyanocobala Yes 1{tbl} Place 1 U nivers min 1,000 4-23 tablet ity of mcg 16:24: under the [place] sublingual 23 tongue. Medica l tablet Branch allopurinoL Yes 100mg Take 100 U nivers 100 mg 4-23 mg by ity of tablet 16:24: mouth. [place] [address] Medical Branch metoprolol Yes 50mg Take 50 mg U nivers succinate 4-23 by mouth. ity o f XL 50 mg 24 16:24: [place] hr tablet 23 Medical Branch fish Yes 1g Take 1 g Univers oil-omega-3 4-23 by mouth. ity of fatty acids 16:24: [place] 340-1,000 23 Medical mg capsule Branch multivitami Yes 1{capsu Take 1 U nivers n capsule 4-23 le} capsule by ity of 16:24: mouth. [place] [address] Medical [place] Cyanocobala Yes 1{tbl} Place 1 U nivers min 1,000 4-23 tablet ity of mcg 16:24: under the [place] sublingual 23 tongue. Medica l tablet Branch allopurinoL Yes 100mg Take 100 U nivers 100 mg 4-23 mg by ity of tablet 16:24: mouth. [place] [address] Medical Branch metoprolol Yes 50mg Take 50 mg U nivers succinate 4-23 by mouth. ity o f XL 50 mg 24 16:24: [place] hr tablet 23 Medical Branch fish Yes 1g Take 1 g Univers oil-omega-3 4-23 by mouth. ity of fatty acids 16:24: [place] 340-1,000 23 Medical mg capsule Branch multivitami Yes 1{capsu Take 1 U nivers n capsule 4-23 le} capsule by ity of 16:24: mouth. [place] [address] Medical Branch Cyanocobala Yes 1{tbl} Place 1 U nivers min 1,000 4-23 tablet ity of mcg 16:24: under the [place] sublingual 23 tongue. Medica l tablet Branch allopurinoL Yes 100mg Take 100 U nivers 100 mg 4-23 mg by ity of tablet 16:24: mouth. [place] [facility] metoprolol Yes 50mg Take 50 mg U nivers succinate 4-23 by mouth. ity o f XL 50 mg 24 16:24: [place] hr tablet 23 Medical Branch fish Yes 1g Take 1 g Univers oil-omega-3 4-23 by mouth. ity of fatty acids 16:24: [place] 340-1,000 23 Medical mg capsule Branch multivitami Yes 1{capsu Take 1 U nivers n capsule 4-23 le} capsule by ity of 16:24: mouth. [place] [address] Medical Branch Cyanocobala Yes 1{tbl} Place 1 U nivers min 1,000 4-23 tablet ity of mcg 16:24: under the [place] sublingual 23 tongue. Medica l tablet Branch allopurinoL Yes 100mg Take 100 U nivers 100 mg 4-23 mg by ity of tablet 16:24: mouth. [place] [address] Medical Branch metoprolol Yes 50mg Take 50 mg U nivers succinate 4-23 by mouth. ity o f XL 50 mg 24 16:24: [place] hr tablet 23 Medical [place] fish Yes 1g Take 1 g Univers oil-omega-3 4-23 by mouth. ity of fatty acids 16:24: [place] 340-1,000 23 Medical mg capsule Branch multivitami Yes 1{capsu Take 1 U nivers n capsule 4-23 le} capsule by ity of 16:24: mouth. [place] [address] Medical Branch Cyanocobala Yes 1{tbl} Place 1 U nivers min 1,000 4-23 tablet ity of mcg 16:24: under the [place] sublingual 23 tongue. Medica l tablet Branch allopurinoL Yes 100mg Take 100 U nivers 100 mg 4-23 mg by ity of tablet 16:24: mouth. [place] [address] Medical Branch metoprolol Yes 50mg Take 50 mg U nivers succinate 4-23 by mouth. ity o f XL 50 mg 24 16:24: [place] hr tablet 23 Medical [place] fish Yes 1g Take 1 g Univers oil-omega-3 4-23 by mouth. ity of fatty acids 16:24: [place] 340-1,000 23 Medical mg capsule Branch multivitami Yes 1{capsu Take 1 U nivers n capsule 4-23 le} capsule by ity of 16:24: mouth. [place] [address] Medical Branch Cyanocobala Yes 1{tbl} Place 1 U nivers min 1,000 4-23 tablet ity of mcg 16:24: under the [place] sublingual 23 tongue. Medica l tablet Branch allopurinoL Yes 100mg Take 100 U nivers 100 mg 4-23 mg by ity of tablet 16:24: mouth. [place] [facility] metoprolol Yes 50mg Take 50 mg U nivers succinate 4-23 by mouth. ity o f XL 50 mg 24 16:24: [place] hr tablet 23 Medical Branch fish Yes 1g Take 1 g Univers oil-omega-3 4-23 by mouth. ity of fatty acids 16:24: [place] 340-1,000 23 Medical mg capsule Branch multivitami Yes 1{capsu Take 1 U nivers n capsule 4-23 le} capsule by ity of 16:24: mouth. [place] [address] Medical Branch Cyanocobala Yes 1{tbl} Place 1 U nivers min 1,000 4-23 tablet ity of mcg 16:24: under the [place] sublingual 23 tongue. Medica l tablet Branch allopurinoL Yes 100mg Take 100 U nivers 100 mg 4-23 mg by ity of tablet 16:24: mouth. [place] [facility] metoprolol Yes 50mg Take 50 mg U nivers succinate 4-23 by mouth. ity o f XL 50 mg 24 16:24: [place] hr tablet 23 Medical Branch fish Yes 1g Take 1 g Univers oil-omega-3 4-23 by mouth. ity of fatty acids 16:24: [place] 340-1,000 23 Medical mg capsule Branch multivitami Yes 1{capsu Take 1 U nivers n capsule 4-23 le} capsule by ity of 16:24: mouth. [place] [address] Medical Branch Cyanocobala Yes 1{tbl} Place 1 U nivers min 1,000 4-23 tablet ity of mcg 16:24: under the [place] sublingual 23 tongue. Medica l tablet Branch allopurinoL Yes 100mg Take 100 U nivers 100 mg 4-23 mg by ity of tablet 16:24: mouth. [place] [address] Medical Branch metoprolol 0 Yes 50mg Take 50 mg U nivers succinate 23 by mouth. ity o f XL 50 mg 24 16:24: [place] hr tablet 23 Medical Branch fish Yes 1g Take 1 g Univers oil-omega-3 07-31 by mouth. ity of fatty acids 16:24: [place] 340-1,000 23 Medical mg capsule Branch multivitami Yes 1{capsu Take 1 U nivers n capsule 07-31 le} capsule by ity of 16:24: mouth. [address] Cyanocobala Yes 1{tbl} Place 1 U nivers min 1,000 23 tablet ity of mcg 16:24: under the [place] sublingual 23 tongue. Medica l tablet Branch allopurinoL Yes 100mg Take 100 U nivers 100 mg 4-23 mg by ity of tablet 16:24: mouth. [address] Branch metoprolol Yes 50mg Take 50 mg U nivers succinate 07-31 by mouth. ity o f XL 50 mg 24 16:24: [place] hr tablet 23 Medical Branch lisinopriL 2022- No 2.5mg Take 1 Uni vers 2.5 mg 07-31 tablet by ity of tablet 14:45: 00:00 mouth in [place] 19 :00 the Medical morning. Branch PRN sodium 2022-0 2022- No [id number] 650mg Take 1 Univers bicarbonate 07-31 [id number] tablet by ity of 650 mg 00:00: 04:59 mouth 4 [place] tablet 00 :00 (four) Medical times [place] daily for 10 days. sodium 2022-0 2022- No [id number] 650mg Take 1 Univers bicarbonate 07-31- [id number] tablet by ity of 650 mg 00:00: 04:59 mouth 4 [place] tablet 00 :00 (four) Medical times [place] daily for 10 days. KCL 2022-0 2022- No 20meq 20 mEq, Univers (KLOR-CON 07-30 Oral, ity of M20) tablet 22:00: 22:52 ONCE, 1 [place] 20 mEq 00 :00 dose, On Medical Sat [place] 07/30/22 at 1700, Routine lidocaine 2022-0 Yes 1{patch 1 Patch, U nivers (LIDODERM) 07-30 } Topical, ity o f 5 % (700 17:56: Administer Cameron as mg/patch) 06 over 12 Medical patch 1 Hours, Branch Patch QDAILYPRN, Starting on [facility] 07/30/22 at 1256, Until Discontinu ed, Routine, Localized pain, apply to low back/sacru m as needed sodium 2022-0 202- No 50meq 50 mEq, Univer s bicarbonate 07-29 Slow IV ity of 8.4 % (1 20:45: 04:07 Push, Q6H, [place] mEq/mL) 00 :00 2 doses, Medical injection First dose Bran ch 50 mEq on Mon07/29/22 at 1545, Last dose on Mon07/29/22 at 1800, Routine doxazosin 2022-0 Yes 2mg 2 mg, Univers (CARDURA) -21 Oral, QHS, ity of tablet 2 mg 02:00: First dose [place] 00 (after Medical last Branch modificati on) on [facility] 07/28/22 at 2100, Until Discontinu ed, Routine NaCl 0.45% 2022-0 Yes 1000mL at 100 Uni vers (1/2NS) IV 4-20 mL/hr, ity of infusion 15:00: 1,000 mL, [place] 1[place]000 mL 00 IV Medical Infusion, Branch CONTINUOUS , Starting on [facility] 07/28/22 at 1000, Until Discontinu ed, Routine lactobacill 2022-0 Yes .5mg 0.5 mg, Uni vers us 4-20 Oral, TID, ity of acidophilus 14:00: First dose [place] tablet 0.5 00 on [facility] Medical mg 07/28/22 at Branch 0900, Until Discontinu ed, Routine sodium 3-0 Yes 650mg 650 mg, Univers bicarbonate 4-20 Oral, QID, it y of (ANTACID 14:00: First dose Cameron as (SODIUM 00 on [facility] Medical BICARBONATE 07/28/22 at Br anch )) tablet 0900, 650 mg Until Discontinu ed, Routine sirolimus 2023-0 Yes 1mg 1 mg, Univers (RAPAMUNE) 4-20 Oral, ity of tablet 1 mg 14:00: [place] 00 First dose Medical on [facility] Branch 07/28/22 at 0900, Until Discontinu ed, Routine
rail crew member approving Restricted medication : BRITTANY LILLY metoprolol Yes 50mg 50 mg, Unive rs succinate 4-20 Oral, ity of XL (TOPROL 14:00: DAILY, [place] XL) tablet 00 First dose Med ical 50 mg on [place] Branch 07/28/22 at 0900, Until Discontinu ed, Routine allopurinoL Yes 100mg 100 mg, Un silvia (ZYLOPRIM) 4-20 Oral, ity of tablet 100 14:00: DAILY, [place] mg 00 First dose Medical on [place] Branch 07/28/22 at 0900, Until Discontinu ed, Routine mycophenola Yes 250mg 250 mg, Un silvia te 4-20 Oral, BID, ity of (CELLCEPT) 13:00: [place] capsule 250 00 on [facility] Medica l mg 07/28/22 at Branch 0800, Until Discontinu ed, Routine
rail crew member approving Restricted medication : BRITTANY LILLY NaCl 0.9% 2022- No 1000mL at 75 Univ ers (NS) IV 4-20 04-20 mL/hr, IV ity of infusion 11:30: 15:00 Infusion, [place] as 1,000 mL 00 :00 ONCE, 1 Medical dose, On Branch [facility] 07/28/22 at 0630, Routine heparin Yes 5000U 5,000 [facility] (porcine) 4-20 Units, ity of injection 11:00: [place] 5,000 Units 00 us, Q8H, Medi padmini First dose Branch on [facility] 07/28/22 at 0600, Until Discontinu ed, Routine ondansetron Yes 4mg 4 mg, Slow Univers (ZOFRAN 4-20 IV Push, ity of (PF)) 06:11: Q6HPRN, [place] injection 4 16 Starting Medi padmini mg on Rosalind Branch 07/28/22 at 0111, Until Discontinu ed, Routine, Nausea and Vomiting (N/V) acetaminoph 0 Yes 650mg 650 mg, Un silvia en 4-20 Oral, ity of (TYLENOL) 06:11: Q6HPRN, [place] tablet 650 12 Starting Medic al mg on Rosalind Branch 07/28/22 at 0111, Until Discontinu ed, Routine, Pain (scale 1-3) NaCl 0.9% 0 2022- No 500mL at 999 Univ ers (NS) bolus 07-28 04-20 mL/hr, 500 it y of infusion 03:30: 03:36 mL, IV [place] 500 mL 00 :00 Infusion, Medical ONCE, 1 Branch dose, On Mon07/27/22 at 2230, CHERIE ondansetron 2022- No 4mg 4 mg, Slow [facility] (ZOFRAN 07-28 04-20 IV Push, ity of (PF)) 03:30: 03:36 ONCE, 1 [place] injection 4 00 :00 dose, On Medi padmini mg Mon Branch 07/27/22 at 2230, CHERIE metoprolol 2022-0 Yes 50mg Take 1 Metho di succinate 4-12 tablet (50 st XL 09:12: mg total) [facility]osp[facility] (TOPROL-XL) 07 by mouth. l 50 mg 24 hr tablet lisinopriL 0 Yes 2.5mg Take 1 Meth tosha (PRINIVIL) 4-[address] 2.5 mg 09:12: (2.5 mg [facility]osp[facility] tablet 06 total) by l mouth. timolol 0 Yes INSTILL 1 Metho di (TIMOPTIC) 2-[address] 0.5 % 00:00: BOTH EYES [facility] ophthalmic 00 EVERY l solution MORNING mycophenola 2022-0 202- No Status post TAKE [address] [facility] te 2-24 06-12 liver CAPSULE BY Frances (CELLCEPT) 00:00: 00:00 transplanta MOUTH Medical 250 mg 00 :00 tion (HCC) TWICE Center capsule DAILY ciprofloxac 2022-0 Yes 500mg Q.5D Take 1 Met hodi in (CIPRO) 2-[address] 500 MG 00:00: (500 mg Hospita tablet 00 total) by l mouth 2 (two) times a day. sirolimus 2023-0 Yes 1mg QD Take 1 Method i (RAPAMUNE) 1-27 tablet (1 st 1 MG tablet 00:00: mg total) H ospita 00 by mouth l daily. doxazosin Yes [facility] (CARDURA) 2 1-24 st MG tablet 00:00: Hospita 00 l sirolimus 2022- No TAKE 1 [facility] (RAPAMUNE) 3-03 04-24 TABLET BY Nelly es 1 MG tablet 00:00: 00:00 MOUTH Medi padmini 00 :00 DAILY Center mycophenola 2022- No Status post TAKE [address] [facility] 17 02-24 liver CAPSULE BY Frances (CELLCEPT) 00:00: 00:00 [facility]planta MOUTH Medical 250 mg 00 :00 tion (HCC) TWICE Center capsule DAILY allopurinoL 2019-0 Yes 100mg Take 100 U nivers 100 mg 4-29 mg by ity of tablet 20:21: mouth. [address] metoprolol 2019-0 Yes 50mg Take 50 mg U nivers succinate 4-29 by mouth. ity o f XL 50 mg 24 20:21: [place] hr tablet Medical Branch fish 2019-0 Yes 1g Take 1 g Univers oil-omega-3 4-29 by mouth. ity of fatty acids 20:21: [place] 340-1,000 07 Medical mg capsule Branch multivitami 0 Yes 1{capsu Take 1 U nivers n capsule 4-29 le} capsule by ity of 20:21: mouth. [address] Cyanocobala 0 Yes 1{tbl} Place 1 U nivers min 1,000 4-29 tablet ity of mcg 20:21: under the [place] sublingual tongue. Medica l tablet Branch allopurinoL 0 Yes 100mg Take 100 U nivers 100 mg 4-29 mg by ity of tablet 20:21: mouth. [address] metoprolol 2020-0 Yes 50mg Take 50 mg U nivers succinate 4-29 by mouth. ity o f XL 50 mg 24 20:21: [place] hr tablet Medical [place] fish 2020-0 Yes 1g Take 1 g Univers oil-omega-3 4-29 by mouth. ity of fatty acids 20:21: [place] 340-1,000 07 Medical mg capsule Branch multivitami 2019-0 Yes 1{capsu Take 1 U nivers n capsule 4-29 le} capsule by ity of 20:21: mouth. [place] [address] Medical Branch Cyanocobala 2020-0 Yes 1{tbl} Place 1 U nivers min 1,000 4-29 tablet ity of mcg 20:21: under the [place] sublingual 07 tongue. Medica l tablet Branch allopurinoL 2020-0 Yes 100mg Take 100 U nivers 100 mg 4-29 mg by ity of tablet 20:21: mouth. [place] [address] Medical Branch metoprolol 2020-0 Yes 50mg Take 50 mg U nivers succinate 4-29 by mouth. ity o f XL 50 mg 24 20:21: [place] hr tablet 07 Medical Branch fish 2020-0 Yes 1g Take 1 g Univers oil-omega-3 4-29 by mouth. ity of fatty acids 20:21: [place] 340-1,000 Medical mg capsule Branch multivitami 2020-0 Yes 1{capsu Take 1 U nivers n capsule 4-29 le} capsule by ity of 20:21: mouth. [place] [address] Medical Branch Cyanocobala 2020-0 Yes 1{tbl} Place 1 U nivers min 1,000 4-29 tablet ity of mcg 20:21: under the [place] sublingual tongue. Medica l tablet Branch sirolimus 1 2020-0 Yes TK 1 T PO U nivers mg tablet 2-14 D ity of 00:00: [place] [address] Medical Branch sirolimus 1 2020-0 Yes TK 1 T PO U nivers mg tablet 2-14 D ity of 00:00: [place] [facility] sirolimus 1 2020-0 Yes TK 1 T PO U nivers mg tablet 2-14 D ity of 00:00: [place] [facility] sirolimus 1 2020-0 Yes TK 1 T PO U nivers mg tablet 2-14 D ity of 00:00: [place] [facility] sirolimus 1 2020-0 Yes TK 1 T PO U nivers mg tablet 2-14 D ity of 00:00: [place] [facility] sirolimus 1 2020-0 Yes TK 1 T PO U nivers mg tablet 2-14 D ity of 00:00: [place] [facility] sirolimus 1 2020-0 Yes TK 1 T PO U nivers mg tablet 2-14 D ity of 00:00: [place] [facility] sirolimus 1 2020-0 Yes TK 1 T PO U nivers mg tablet 2-14 D ity of 00:00: [place] [facility] sirolimus 1 2020-0 Yes TK 1 T PO U nivers mg tablet 2-14 D ity of 00:00: [place] [facility] sirolimus 1 2020-0 Yes TK 1 T PO U nivers mg tablet 2-14 D ity of 00:00: [place] [facility] sirolimus 1 2020-0 Yes TK 1 T PO U nivers mg tablet 2-14 D ity of 00:00: [place] [facility] sirolimus 1 2020-0 Yes TK 1 T PO U nivers mg tablet 2-14 D ity of 00:00: [address] Branch sirolimus 1 2020-0 Yes TK 1 T PO U nivers mg tablet 2-14 D ity of 00:00: [address] Branch sirolimus 1 2020-0 Yes TK 1 T PO U nivers mg tablet 2-14 D ity of 00:00: [address] Branch sirolimus 1 2020-0 Yes TK 1 T PO U nivers mg tablet 2-14 D ity of 00:00: [place] [address] Medical Branch sirolimus 1 2020-0 Yes TK 1 T PO U nivers mg tablet 2-14 D ity of 00:00: [address] Branch sirolimus 1 2020-0 Yes TK 1 T PO U nivers mg tablet 2-14 D ity of 00:00: [address] Branch sirolimus 1 2020-0 Yes TK 1 T PO U nivers mg tablet 2-14 D ity of 00:00: [place] [address] Medical Branch sirolimus 1 2020-0 Yes TK 1 T PO U nivers mg tablet 2-14 D ity of 00:00: [place] [address] Medical Branch mycophenola 2020-0 Yes TAKE ONE Un silvia te 250 mg 2-12 CAPSULE BY ity of capsule 00:00: MOUTH [place] TWICE Medical DAILY Branch doxazosin 2 2020-0 Yes TK 1 T PO U nivers mg tablet 2-12 QD HS ity of 00:00: [place] [address] Medical Branch mycophenola 2020-0 Yes TAKE ONE Un silvia te 250 mg 2-12 CAPSULE BY ity of capsule 00:00: MOUTH [place] TWICE Medical DAILY Branch doxazosin 2 2020-0 Yes TK 1 T PO U nivers mg tablet 2-12 QD HS ity of 00:00: [place] [address] Medical Branch mycophenola 2020-0 Yes TAKE ONE Un silvia te 250 mg 2-12 CAPSULE BY ity of capsule 00:00: MOUTH TWICE Medical DAILY Branch doxazosin 2 2020-0 Yes TK 1 T PO U nivers mg tablet 2-12 QD HS ity of 00:00: [place] [facility] mycophenola 2020-0 Yes TAKE ONE Un silvia te 250 mg 2-12 CAPSULE BY ity of capsule 00:00: MOUTH [place] TWICE Medical DAILY Branch doxazosin 2 2020-0 Yes TK 1 T PO U nivers mg tablet 2-12 QD HS ity of 00:00: [place] [facility] mycophenola 2020-0 Yes TAKE ONE Un silvia te 250 mg 2-12 CAPSULE BY ity of capsule 00:00: MOUTH [place] TWICE Medical DAILY Branch mycophenola 2020-0 Yes TAKE ONE Un silvia te 250 mg 2-12 CAPSULE BY ity of capsule 00:00: MOUTH [place] TWICE Medical DAILY Branch doxazosin 2 2020-0 Yes TK 1 T PO U nivers mg tablet 2-12 QD HS ity of 00:00: [place] [facility] doxazosin 2 2020-0 Yes TK 1 T PO U nivers mg tablet 2-12 QD HS ity of 00:00: [place] [facility] mycophenola 2020-0 Yes TAKE ONE Un silvia te 250 mg 2-12 CAPSULE BY ity of capsule 00:00: MOUTH [place] TWICE Medical DAILY Branch doxazosin 2 2020-0 Yes TK 1 T PO U nivers mg tablet 2-12 QD HS ity of 00:00: [place] [facility] mycophenola 2020-0 Yes TAKE ONE Un silvia te 250 mg 2-12 CAPSULE BY ity of capsule 00:00: MOUTH [place] TWICE Medical DAILY Branch doxazosin 2 2020-0 Yes TK 1 T PO U nivers mg tablet 2-12 QD HS ity of 00:00: [place] [facility] mycophenola 2020-0 Yes TAKE ONE Un silvia te 250 mg 2-12 CAPSULE BY ity of capsule 00:00: MOUTH [place] TWICE Medical DAILY Branch doxazosin 2 2020-0 Yes TK 1 T PO U nivers mg tablet 2-12 QD HS ity of 00:00: [place] [facility] mycophenola 2020-0 Yes TAKE ONE Un silvia te 250 mg 2-12 CAPSULE BY ity of capsule 00:00: MOUTH TWICE Medical DAILY Branch doxazosin 2 2020-0 Yes TK 1 T PO U nivers mg tablet 2-12 QD HS ity of 00:00: Medical Branch mycophenola 2020-0 Yes TAKE ONE Un silvia te 250 mg 2-12 CAPSULE BY ity of capsule 00:00: MOUTH TWICE Medical DAILY Branch doxazosin 2 2020-0 Yes TK 1 T PO U nivers mg tablet 2-12 QD HS ity of 00:00: [place] [facility] mycophenola 2020-0 Yes TAKE ONE Un silvia te 250 mg 2-12 CAPSULE BY ity of capsule 00:00: MOUTH TWICE Medical DAILY Branch doxazosin 2 2020-0 Yes TK 1 T PO U nivers mg tablet 2-12 QD HS ity of 00:00: [place] [facility] mycophenola 2020-0 Yes TAKE ONE Un silvia te 250 mg 2-12 CAPSULE BY ity of capsule 00:00: MOUTH TWICE Medical DAILY Branch doxazosin 2 2020-0 Yes TK 1 T PO U nivers mg tablet 2-12 QD HS ity of 00:00: [place] [facility] mycophenola 2020-0 Yes TAKE ONE Un silvia te 250 mg 2-12 CAPSULE BY ity of capsule 00:00: MOUTH TWICE Medical DAILY Branch doxazosin 2 2020-0 Yes TK 1 T PO U nivers mg tablet 2-12 QD HS ity of 00:00: [place] [facility] mycophenola 2020-0 Yes TAKE ONE Un silvia te 250 mg 2-12 CAPSULE BY ity of capsule 00:00: MOUTH TWICE Medical DAILY Branch doxazosin 2 2020-0 Yes TK 1 T PO U nivers mg tablet 2-12 QD HS ity of 00:00: [place] [facility] mycophenola 2020-0 Yes TAKE ONE Un silvia te 250 mg 2-12 CAPSULE BY ity of capsule 00:00: MOUTH TWICE Medical DAILY Branch doxazosin 2 2020-0 Yes TK 1 T PO U nivers mg tablet 2-12 QD HS ity of 00:00: [place] [facility] mycophenola 2020-0 Yes TAKE ONE Un silvia te 250 mg 2-12 CAPSULE BY ity of capsule 00:00: MOUTH TWICE Medical DAILY Branch doxazosin 2 2020-0 Yes TK 1 T PO U nivers mg tablet 2-12 QD HS ity of 00:00: Medical Branch mycophenola 2020-0 Yes TAKE ONE Un silvia te 250 mg 2-12 CAPSULE BY ity of capsule 00:00: MOUTH TWICE Medical DAILY Branch doxazosin 2 2020-0 Yes TK 1 T PO U nivers mg tablet 2-12 QD HS ity of 00:00: Medical Branch mycophenola 2020-0 Yes TAKE ONE Un silvia te 250 mg 2-12 CAPSULE BY ity of capsule 00:00: MOUTH TWICE Medical DAILY Branch doxazosin 2 2020-0 Yes TK 1 T PO U nivers mg tablet 2-12 QD HS ity of 00:00: Medical Branch multivitami 2020-0 Yes 1{capsu QD Take [address] n capsule 2-11 le} capsule by Luke s 11:02: mouth Medical 55 daily. [place] metoprolol 2019-0 Yes 50mg Q.5D Take [address] (TOPROL-XL) 2-11 by mouth 2 Melanie kes 50 MG 24 hr 11:02: (two) Medic al tablet 55 times Center daily. folic acid 2019-0 Yes 400ug QD Take [address] (FOLVITE) 2-11 mcg by [facility] 400 MCG 11:02: mouth Medical tablet 55 daily . [place] lisinopril 2019-0 Yes hypertensio 2.5mg Take 2.[address] [facility] (PRINIVIL,Z 2-11 n mg by [facility] ESTRIL) 2.5 11:02: mouth as Me dical MG tablet 55 needed (if Cent er BP elevated as per nephrology )) . cyanocobala 2020-0 Yes 1{tbl} Place [address] min, 2-11 tablet [facility] vitamin 11:02: under the Medic al B-12, 55 tongue. Center (VITAMIN B-12) 1,000 mcg Subl omega-3 2020-0 Yes 1g QD Take [address] [facility] fatty 2-11 by mouth [facility] acids-fish 11:02: daily. Medic al oil 55 Center 340-1,000 mg Cap per capsule allopurinol 2020-0 Yes 100mg QD Take [address] (ZYLOPRIM) 2-11 mg by [facility] 100 MG 11:02: mouth Medical tablet 55 daily . [place] travoprost 2020-0 Yes 1[drp] QD Place [address] [facility] (TRAVATAN 2-11 drop into [facility] Z) 0.004 % 11:02: both eyes Me dical Drop 55 nightly. Center ophthalmic drops rivaroxaban 2019-0 Yes 15mg Take [address] [facility] (XARELTO) 2-11 by mouth [facility] 15 mg Tab 11:02: daily as Medi padmini tablet 55 needed Center Take only when traveling on airplane. . VIT A/VIT 2020-0 Yes 1{capsu QD Take [address] [facility] C/VIT 2-11 le} capsule by [facility] E/ZINC/LISA 11:02: mouth Medic al ER (ICAPS 55 daily Center AREDS ORAL) A-Red capsule daily. . timolol 2019-0 Yes 1[drp] Q.5D Place 1-[address] (BETIMOL) 2-11 drops into Luke s 0.25 % 11:02: both eyes Medica l ophthalmic 55 2 (two) Center solution times daily. doxazosin 2019-0 Yes 2mg QD Take [address] [facility] (CARDURA) 2 2-11 by mouth Luke s MG tablet 11:02: daily. Medica l 55 Center Levetiracet Yes 500 mg = 1 Memoria am 500 MG 3-22 tab, PO, l Oral Tablet 15:19: Q12H, # 8 [facility] [Keppra] 00 tab, 0 Refill(s) Levetiracet Yes 500 mg = 1 Memoria am 500 MG 3-22 tab, PO, l Oral Tablet 15:19: Q12H, # 8 [facility] [Keppra] 00 tab, 0 Refill(s) Acetaminoph 2018- Yes 650 mg = 2 Memoria en 325 MG 3-22 tab, PO, l Oral Tablet 15:19: Q6H, PRN [facility] 00 Pain Score 1-3, 0 Refill(s) Acetaminoph 0 Yes 650 mg = 2 Memoria en 325 MG 3-22 tab, PO, l Oral Tablet 15:19: Q6H, PRN [place] [facility] 00 Pain Score 1-3, 0 Refill(s) Levetiracet Yes 500 mg = 1 Memoria am 500 MG 3-22 tab, PO, l Oral Tablet 15:19: Q12H, # 8 [facility] [Keppra] 00 tab, 0 Refill(s) Acetaminoph 2019-0 Yes 650 mg = 2 Memoria en 325 MG 3-22 tab, PO, l Oral Tablet 15:19: Q6H, PRN [facility] 00 Pain Score 1-3, 0 Refill(s) Levetiracet 2019-0 Yes 500 mg = 1 Memoria am 500 MG 3-22 tab, PO, l Oral Tablet 15:19: Q12H, # 8 [facility] [Keppra] 00 tab, 0 Refill(s) Acetaminoph 2018-0 Yes 650 mg = 2 Memoria en 325 MG 3-22 tab, PO, l Oral Tablet 15:19: Q6H, PRN [facility] 00 Pain Score 1-3, 0 Refill(s) Levetiracet 2018-0 Yes 500 mg = 1 Memoria am 500 MG 3-22 tab, PO, l Oral Tablet 15:19: Q12H, # 8 [facility] [Keppra] 00 tab, 0 Refill(s) Acetaminoph 0 Yes 650 mg = 2 Memoria en 325 MG 3-22 tab, PO, l Oral Tablet 15:19: Q6H, PRN [facility] 00 Pain Score 1-3, 0 Refill(s) Levetiracet 2018-0 Yes 500 mg = 1 Memoria am 500 MG 3-22 tab, PO, l Oral Tablet 15:19: Q12H, # 8 [facility] [Keppra] 00 tab, 0 Refill(s) Acetaminoph 2018-0 Yes 650 mg = 2 Memoria en 325 MG 3-22 tab, PO, l Oral Tablet 15:19: Q6H, PRN [facility] 00 Pain Score 1-3, 0 Refill(s) Levetiracet 2018-0 Yes 500 mg = 1 Memoria am 500 MG 3-22 tab, PO, l Oral Tablet 15:19: Q12H, # 8 [facility] [Keppra] 00 tab, 0 Refill(s) Acetaminoph 2018-0 Yes 650 mg = 2 Memoria en 325 MG 3-22 tab, PO, l Oral Tablet 15:19: Q6H, PRN [place] [facility] 00 Pain Score 1-3, 0 Refill(s) Levetiracet Yes 500 mg = 1 Memoria am 500 MG 3-22 tab, PO, l Oral Tablet 15:19: Q12H, # 8 [facility] [Keppra] 00 tab, 0 Refill(s) Acetaminoph 2018-0 Yes 650 mg = 2 Memoria en 325 MG 3-22 tab, PO, l Oral Tablet 15:19: Q6H, PRN [place] [facility] 00 Pain Score 1-3, 0 Refill(s) Levetiracet Yes 500 mg = 1 Memoria am 500 MG 3-22 tab, PO, l Oral Tablet 15:19: Q12H, # 8 [facility] [Keppra] 00 tab, 0 Refill(s) Acetaminoph Yes 650 mg = 2 Memoria en 325 MG 3-22 tab, PO, l Oral Tablet 15:19: Q6H, PRN [facility] 00 Pain Score 1-3, 0 Refill(s) Levetiracet Yes 500 mg = 1 Memoria am 500 MG 3-22 tab, PO, l Oral Tablet 15:19: Q12H, # 8 [facility] [Keppra] 00 tab, 0 Refill(s) Acetaminoph Yes 650 mg = 2 Memoria en 325 MG 3-22 tab, PO, l Oral Tablet 15:19: Q6H, PRN [facility] 00 Pain Score 1-3, 0 Refill(s) Levetiracet Yes 500 mg = 1 Memoria am 500 MG 3-22 tab, PO, l Oral Tablet 15:19: Q12H, # 8 [facility] [Keppra] 00 tab, 0 Refill(s) Acetaminoph Yes 650 mg = 2 Memoria en 325 MG 3-22 tab, PO, l Oral Tablet 15:19: Q6H, PRN [facility] 00 Pain Score 1-3, 0 Refill(s) Levetiracet 2018-0 Yes 500 mg = 1 Memoria am 500 MG 3-22 tab, PO, l Oral Tablet 15:19: Q12H, # 8 [facility] [Keppra] 00 tab, 0 Refill(s) Acetaminoph Yes 650 mg = 2 Memoria en 325 MG 3-22 tab, PO, l Oral Tablet 15:19: Q6H, PRN rm Pain Score 1-3, 0 Refill(s) Levetiracet Yes 500 mg = 1 [facility]oria am 500 MG 3-22 tab, PO, l Oral Tablet 15:19: Q12H, # 8 [facility] [Keppra] 00 tab, 0 Refill(s) Acetaminoph Yes 650 mg = 2 Memoria en 325 MG 3-22 tab, PO, l Oral Tablet 15:19: Q6H, PRN rm Pain Score 1-3, 0 Refill(s) Levetiracet Yes 500 mg = 1 Memoria am 500 MG 3-22 tab, PO, l Oral Tablet 15:19: Q12H, # 8 [facility] [Keppra] 00 tab, 0 Refill(s) Acetaminoph Yes 650 mg = 2 Memoria en 325 MG 3-22 tab, PO, l Oral Tablet 15:19: Q6H, PRN rm Pain Score 1-3, 0 Refill(s) Magnesium No Notes: Memori a Oxide - (Same as: l 09:21: Mag-Ox Alvin 00 400) Magnesium oxide 019dp=027y g elemental magnesium Dose=____m g magnesium oxide (___mg elemental magnesium) Magnesium No Notes: [facility] a Sulfate - WASTE: F/P l 09:21: - Sink; E - [facility] Trash Bin Calcium No Notes: [facility] Gluconate -22 WASTE: F/P l 09:21: - Sink; E - [facility] Trash Bin sodium No Notes: [...] s with feeding tube less than 14 [place] (Dobhoff, J-tube etc) and pediatric and patients. potassium No Notes: Memori a phosphate-s 3-22 (Same as: l odium 09:21: Phos-NaK) Alvin phosphate 00 Each 1.5 250 mg-280 gm pkt has mg-160 mg 250mg oral powder phosphorou for s. Mix reconstitut w/2.5oz ion water and stir. potassium No Notes: Memori a phosphate 3-22 (Same as: l 09:21: K Alvin 00 Phosphate. ) Do not infuse phosphorou s concurrent ly in the same line as TPN or IVF that contains calcium. For double lumen central lines, phosphorou s may be infused in a separate lumen from TPN. 1 mMol phoshate has 1.47 mEq potassium Infuse over 4 hours Magnesium No Notes: Memori a Oxide 3-22 (Same as: l 09:21: Mag-Ox Alvin 400) Magnesium oxide 127yg=546q g elemental magnesium Dose=____m g magnesium oxide (___mg elemental magnesium) Magnesium No Notes: [facility] a Sulfate 3-22 WASTE: F/P l 09:21: - Sink; E Seth - Municipal Trash Bin Magnesium No Notes: [facility] a Oxide 3-22 (Same as: l 09:21: Mag-Ox Seth 400) Magnesium oxide [id number] g elemental magnesium Dose=____m g magnesium oxide (___mg elemental magnesium) Magnesium No Notes: [facility] a Sulfate 3-22 WASTE: F/P l 09:21: - Sink; E Alvin 00 - Municipal Trash Bin Calcium 2018- No Notes: [facility] Gluconate 3-22 WASTE: F/P l 09:21: - Sink; E Alvin - [facility] Trash Bin sodium 2018- No Notes: [facility] phosphate 3-22 Infuse l 09:21: over 4 Alvin 00 hour. Do not infuse phosphorou s concurrent ly in the same line as TPN or IVF that contains calcium. For double lumen central lines, phosphorou s may be infused in a separate lumen from TPN. Potassium No Notes: [facility] a Chloride 3-22 (Same as: l :: K-Dur 20) Seth 00 "Do Not Crush" Give with food and full glass of water For patients unable to swallow tablet, dissolve in one half glass of water. Allow about 2 minutes for the tablets to disintegra te. Stir before giving to prepare slurry and administer . Please exclude Patient s with feeding tube less than 14 [place] (Dobhoff, J-tube etc) and pediatric and patients. potassium No Notes: [facility] a phosphate-s 3-22 (Same as: l odium 09:21: Phos-NaK) Alvin phosphate 00 Each 1.5 250 mg-280 gm pkt has mg-160 mg 250mg oral powder phosphorou for s. Mix reconstitut w/2.5oz ion water and stir. potassium No Notes: [facility] a phosphate 3-22 (Same as: l : K Seth 00 Phosphate. ) Do not infuse phosphorou s concurrent ly in the same line as TPN or IVF that contains calcium. For double lumen central lines, phosphorou s may be infused in a separate lumen from TPN. 1 mMol phoshate has 1.47 mEq potassium Infuse over 4 hours Calcium No Notes: [facility] Gluconate 3-22 WASTE: F/P l 09:21: - Sink; E - [facility] Tra Bin sodium No Notes: [facility] phosphate 3-22 Infuse l 09:21: over 4 Alvin 00 hour. Do not infuse phosphorou s concurrent ly in the same line as TPN or IVF that contains calcium. For double lumen central lines, phosphorou s may be infused in a separate lumen from TPN. Magnesium No Notes: [facility] a Oxide 3-22 (Same as: l :21: Mag-Ox Alvin 00 400) Magnesium oxide 247ec=162m g elemental magnesium Dose=____m g magnesium oxide (___mg elemental magnesium) Potassium No Notes: [facility] a Chloride 3-22 (Same as: l :21: K-Dur 20) Alvin 00 "Do Not Crush" Give with food and full glass of water For patients unable to swallow tablet, dissolve in one half glass of water. Allow about 2 minutes for the tablets to disintegra te. Stir before giving to prepare slurry and administer . Please exclude Patient s with feeding tube less than 14 [place] (Dobhoff, J-tube etc) and pediatric and patients. Magnesium No Notes: [facility] a Sulfate 3-22 WASTE: F/P l 09:21: - Sink; E Seth 00 - Municipal Trash Bin Calcium No Notes: [facility] Gluconate 3-22 WASTE: F/P l 09:21: - Sink; E Seth 00 - Municipal Trash Bin sodium No Notes: [facility] phosphate 3-22 Infuse l 09:21: over 4 Seth 00 hour. Do not infuse phosphorou s [...] s with feeding tube less than 14 [place] (Dobhoff, J-tube etc) and pediatric and patients. potassium No Notes: [facility] a phosphate-s 3-22 (Same as: l odium 09:21: Phos-NaK) Seth phosphate 00 Each 1.5 250 mg-280 gm pkt has mg-160 mg 250mg oral powder phosphorou for s. Mix reconstitut w/2.5oz ion water and stir. potassium No Notes: [facility] a phosphate 3-22 (Same as: l 09:21: K Alvin 00 Phosphate. ) Do not infuse phosphorou s concurrent ly in the same line as TPN or IVF that contains calcium. For double lumen central lines, phosphorou s may be infused in a separate lumen from TPN. 1 mMol phoshate has 1.47 mEq potassium Infuse over 4 hours potassium No Notes: [facility] a phosphate-s 3-22 (Same as: l odium 09:21: Phos-NaK) Seth phosphate 00 Each 1.5 250 mg-280 gm pkt has mg-160 mg 250mg oral powder phosphorou for s. Mix reconstitut w/2.5oz ion water and stir. potassium No Notes: [facility] a phosphate 3-22 (Same as: l 09:21: K Alvin 00 Phosphate. ) Do not infuse phosphorou s concurrent ly in the same line as TPN or IVF that contains calcium. For double lumen central lines, phosphorou s may be infused in a separate lumen from TPN. 1 mMol phoshate has 1.47 mEq potassium Infuse over 4 hours Magnesium No Notes: [facility] a Oxide 3-22 (Same as: l 09:21: Mag-Ox 400) Magnesium oxide 013sl=286o g elemental magnesium Dose=____m g magnesium oxide (___mg elemental magnesium) Magnesium No Notes: [facility] a Sulfate 3-22 WASTE: F/P l 09:21: - Sink; E - [facility] Trash Bin Calcium No Notes: [facility] Gluconate 3-22 WASTE: F/P l 09:21: - Sink; E - [facility] Trash Bin sodium No Notes: [facility] phosphate 3-22 Infuse l 09:21: over 4 Alvin 00 hour. Do not infuse phosphorou s concurrent ly in the same line as TPN or IVF that contains calcium. For double lumen central lines, phosphorou s may be infused in a separate lumen from TPN. Potassium No Notes: [facility] a Chloride 3-22 (Same as: l :21: K-Dur 20) "Do Not Crush" Give with food and full glass of water For patients unable to swallow tablet, dissolve in one half glass of water. Allow about 2 minutes for the tablets to disintegra te. Stir before giving to prepare slurry and administer . Please exclude Patient s with feeding tube less than 14 [place] (Dobhoff, J-tube etc) and pediatric and patients. potassium No Notes: [facility] a phosphate-s 3-22 (Same as: l odium 09:21: Phos-NaK) Seth phosphate 00 Each 1.5 250 mg-280 gm pkt has mg-160 mg 250mg oral powder phosphorou for s. Mix reconstitut w/2.5oz ion water and stir. potassium No Notes: [facility]ori a phosphate 3-22 (Same as: l 09:21: K Seth 00 Phosphate. ) Do not infuse phosphorou s concurrent ly in the same line as TPN or IVF that contains calcium. For double lumen central lines, phosphorou s may be infused in a separate lumen from TPN. 1 mMol phoshate has 1.47 mEq potassium Infuse over 4 hours Magnesium No Notes: [facility] a Oxide 3-22 (Same as: l 09:21: Mag-Ox Seth 00 400) Magnesium oxide 367yq=092k g elemental magnesium Dose=____m g magnesium oxide (___mg elemental magnesium) Magnesium No Notes: [facility] a Sulfate 3-22 WASTE: F/P l 09:21: - Sink; E Alvin 00 - Municipal Trash Bin Calcium No Notes: Memoria Gluconate 3-22 WASTE: F/P l 09:21: - Sink; E Seth 00 - Municipal Trash Bin sodium No Notes: Memoria phosphate 3-22 Infuse l 09:21: over 4 Alvin 00 hour. Do not infuse phosphorou s concurrent ly in the same line as TPN or IVF that contains calcium. For double lumen central lines, phosphorou s may be infused in a separate lumen from TPN. Potassium No Notes: Memori a Chloride 3-22 (Same as: l 09:21: K-Dur 20) 00 "Do Not Crush" Give with food and full glass of water For patients unable to swallow tablet, dissolve in one half glass of water. Allow about 2 minutes for the tablets to disintegra te. Stir before giving to prepare slurry and administer . Please exclude Patient s with feeding tube less than 14 [place] (Dobhoff, J-tube etc) and pediatric and patients. potassium No Notes: Memori a phosphate-s 3-22 (Same as: l odium 09:21: Phos-NaK) Alvin phosphate 00 Each 1.5 250 mg-280 gm pkt has mg-160 mg 250mg oral powder phosphorou for s. Mix reconstitut w/2.5oz ion water and stir. potassium No Notes: Memori a phosphate 3-22 (Same as: l 09:21: K Alvin 00 Phosphate. ) Do not infuse phosphorou s concurrent ly in the same line as TPN or IVF that contains calcium. For double lumen central lines, phosphorou s may be infused in a separate lumen from TPN. 1 mMol phoshate has 1.47 mEq potassium Infuse over 4 hours Magnesium No Notes: Memori a Oxide 3-22 (Same as: l 09:21: Mag-Ox Seth 00 400) Magnesium oxide 332lj=982h g elemental magnesium Dose=____m g magnesium oxide (___mg elemental magnesium) Magnesium No Notes: Memori a Sulfate 3-22 WASTE: F/P l 09:21: - Sink; E Seth - [employer] Trash Bin Calcium No Notes: Memoria Gluconate 3-22 WASTE: F/P l 09:21: - Sink; E Alvin - [employer] Trash Bin sodium No Notes: Memoria phosphate 3-22 Infuse l 09:21: over 4 Alvin 00 hour. Do not infuse phosphorou s concurrent ly in the same line as TPN or IVF that contains calcium. For double lumen central lines, phosphorou s may be infused in a separate lumen from TPN. Potassium No Notes: Memori a Chloride 3-22 (Same as: l :21: K-Dur 20) "Do Not Crush" Give with food and full glass of water For patients unable to swallow tablet, dissolve in one half glass of water. Allow about 2 minutes for the tablets to disintegra te. Stir before giving to prepare slurry and administer . Please exclude Patient s with feeding tube less than 14 [place] (Dobhoff, J-tube etc) and pediatric and patients. potassium No Notes: Memori a phosphate-s 3-22 (Same as: l odium 09:21: Phos-NaK) Seth phosphate 00 Each 1.5 250 mg-280 gm pkt has mg-160 mg 250mg oral powder phosphorou for s. Mix reconstitut w/2.5oz ion water and stir. potassium No Notes: Memori a phosphate 3-22 (Same as: l 09:21: K Alvin 00 Phosphate. ) Do not infuse phosphorou s concurrent ly in the same line as TPN or IVF that contains calcium. For double lumen central lines, phosphorou s may be infused in a separate lumen from TPN. 1 mMol phoshate has 1.47 mEq potassium Infuse over 4 hours Magnesium No Notes: Memori a Oxide 3-22 (Same as: l 09:21: Mag-Ox Alvin 00 400) Magnesium oxide 747am=444t g elemental magnesium Dose=____m g magnesium oxide (___mg elemental magnesium) Magnesium No Notes: Memori a Sulfate 3-22 WASTE: F/P l 09:21: - Sink; E Seth 00 - [employer] Trash Bin Calcium No Notes: Memoria Gluconate 3-22 WASTE: F/P l 09:21: - Sink; E Alvin 00 - [employer] Trash Bin sodium No Notes: Memoria phosphate 3-22 Infuse l 09:21: over 4 Alvin 00 hour. Do not infuse phosphorou s concurrent ly in the same line as TPN or IVF that contains calcium. For double lumen central lines, phosphorou s may be infused in a separate lumen from TPN. Potassium No Notes: Memori a Chloride 3-22 (Same as: l 09:21: K-Dur 20) Alvin 00 "Do Not Crush" Give with food and full glass of water For patients unable to swallow tablet, dissolve in one half glass of water. Allow about 2 minutes for the tablets to disintegra te. Stir before giving to prepare slurry and administer . Please exclude Patient s with feeding tube less than 14 [place] (Dobhoff, J-tube etc) and pediatric and patients. potassium No Notes: Memori a phosphate-s 3-22 (Same as: l odium 09:21: Phos-NaK) Seth phosphate 00 Each 1.5 250 mg-280 gm pkt has mg-160 mg 250mg oral powder phosphorou for s. Mix reconstitut w/2.5oz ion water and stir. potassium No Notes: Memori a phosphate 3-22 (Same as: l 09:21: K Seth 00 Phosphate. ) Do not infuse phosphorou s concurrent ly in the same line as TPN or IVF that contains calcium. For double lumen central lines, phosphorou s may be infused in a separate lumen from TPN. 1 mMol phoshate has 1.47 mEq potassium Infuse over 4 hours Magnesium No Notes: Memori a Oxide 3-22 (Same as: l 09:21: Mag-Ox Seth 00 400) Magnesium oxide 673ee=958w g elemental magnesium Dose=____m g magnesium oxide (___mg elemental magnesium) Magnesium No Notes: Memori a Oxide 3-22 (Same as: l 09:21: Mag-Ox Alvin 00 400) Magnesium oxide 037wx=194d g elemental magnesium Dose=____m g magnesium oxide (___mg elemental magnesium) Magnesium No Notes: Memori a Sulfate 3-22 WASTE: F/P l 09:21: - Sink; E Alvin 00 - [employer] Trash Bin Calcium No Notes: Memoria Gluconate 3-22 WASTE: F/P l 09:21: - Sink; E Alvin 00 - [employer] Trash Bin sodium No Notes: Memoria phosphate 3-22 Infuse l 09:21: over 4 Alvin 00 hour. Do not infuse phosphorou s [...] s with feeding tube less than 14 [place] (Dobhoff, J-tube etc) and pediatric and patients. potassium No Notes: Memori a phosphate-s 3-22 (Same as: l odium 09:21: Phos-NaK) Alvin phosphate 00 Each 1.5 250 mg-280 gm pkt has mg-160 mg 250mg oral powder phosphorou for s. Mix reconstitut w/2.5oz ion water and stir. potassium No Notes: Memori a phosphate 3-22 (Same as: l 09:21: K Alvin 00 Phosphate. ) Do not infuse phosphorou s concurrent ly in the same line as TPN or IVF that contains calcium. For double lumen central lines, phosphorou s may be infused in a separate lumen from TPN. 1 mMol phoshate has 1.47 mEq potassium Infuse over 4 hours Magnesium No Notes: Memori a Sulfate 3-22 WASTE: F/P l 09:21: - Sink; E Seth 00 - [employer] Trash Bin Calcium No Notes: Memoria Gluconate 3-22 WASTE: F/P l 09:21: - Sink; E Alvin 00 - [employer] Trash Bin sodium No Notes: Memoria phosphate 3-22 Infuse l 09:21: over 4 Seth 00 hour. Do not infuse phosphorou s concurrent ly in the same line as TPN or IVF that contains calcium. For double lumen central lines, phosphorou s may be infused in a separate lumen from TPN. Potassium No Notes: Memori a Chloride 3-22 (Same as: l :21: K-Dur 20) "Do Not Crush" Give with food and full glass of water For patients unable to swallow tablet, dissolve in one half glass of water. Allow about 2 minutes for the tablets to disintegra te. Stir before giving to prepare slurry and administer . Please exclude Patient s with feeding tube less than 14 [place] (Dobhoff, J-tube etc) and pediatric and patients. potassium No Notes: Memori a phosphate-s 3-22 (Same as: l odium 09:21: Phos-NaK) Alvin phosphate 00 Each 1.5 250 mg-280 gm pkt has mg-160 mg 250mg oral powder phosphorou for s. Mix reconstitut w/2.5oz ion water and stir. potassium No Notes: Memori a phosphate 3-22 (Same as: l 09:21: K Alvin 00 Phosphate. ) Do not infuse phosphorou s concurrent ly in the same line as TPN or IVF that contains calcium. For double lumen central lines, phosphorou s may be infused in a separate lumen from TPN. 1 mMol phoshate has 1.47 mEq potassium Infuse over 4 hours Magnesium No Notes: Memori a Oxide 3-22 (Same as: l 09:21: Mag-Ox Alvin 00 400) Magnesium oxide 056ob=223c g elemental magnesium Dose=____m g magnesium oxide (___mg elemental magnesium) Magnesium No Notes: Memori a Sulfate 3-22 WASTE: F/P l 09:21: - Sink; E Alvin - [employer] Trash Bin Calcium No Notes: Memoria Gluconate 3-22 WASTE: F/P l 09:21: - Sink; E Seth 00 - [employer] Trash Bin sodium No Notes: Memoria phosphate 3-22 Infuse l :21: over 4 Alvin 00 hour. Do not infuse phosphorou s concurrent ly in the same line as TPN or IVF that contains calcium. For double lumen central lines, phosphorou s may be infused in a separate lumen from TPN. Potassium No Notes: Memori a Chloride 3-22 (Same as: l :: K-Dur 20) "Do Not Crush" Give with food and full glass of water For patients unable to swallow tablet, dissolve in one half glass of water. Allow about 2 minutes for the tablets to disintegra te. Stir before giving to prepare slurry and administer . Please exclude Patient s with feeding tube less than 14 [place] (Dobhoff, J-tube etc) and pediatric and patients. potassium No Notes: Memori a phosphate-s 3-22 (Same as: l odium :: Phos-NaK) Alvin phosphate 00 Each 1.5 250 mg-280 gm pkt has mg-160 mg 250mg oral powder phosphorou for s. Mix reconstitut w/2.5oz ion water and stir. potassium No Notes: Memori a phosphate 3-22 (Same as: l :21: K Seth 00 Phosphate. ) Do not infuse phosphorou s concurrent ly in the same line as TPN or IVF that contains calcium. For double lumen central lines, phosphorou s may be infused in a separate lumen from TPN. 1 mMol phoshate has 1.47 mEq potassium Infuse over 4 hours Magnesium No Notes: Memori a Oxide 3-22 (Same as: l :21: Mag-Ox Seth 00 400) Magnesium oxide 722re=936t g elemental magnesium Dose=____m g magnesium oxide (___mg elemental magnesium) Magnesium No Notes: Memori a Sulfate 3-22 WASTE: F/P l 09:21: - Sink; E Seth - [employer] Trash Bin Calcium No Notes: Memoria Gluconate 3-22 WASTE: F/P l 09:21: - Sink; E Alvin - [employer] Trash Bin sodium No Notes: Memoria phosphate 3-22 Infuse l 09:21: over 4 Seth 00 hour. Do not infuse phosphorou s [...] s with feeding tube less than 14 [place] (Dobhoff, J-tube etc) and pediatric and patients. potassium No Notes: Memori a phosphate-s 3-22 (Same as: l odium 09:21: Phos-NaK) Seth phosphate 00 Each 1.5 250 mg-280 gm pkt has mg-160 mg 250mg oral powder phosphorou for s. Mix reconstitut w/2.5oz ion water and stir. potassium No Notes: Memori a phosphate 3-22 (Same as: l 09:21: K Seth 00 Phosphate. ) Do not infuse phosphorou s concurrent ly in the same line as TPN or IVF that contains calcium. For double lumen central lines, phosphorou s may be infused in a separate lumen from TPN. 1 mMol phoshate has 1.47 mEq potassium Infuse over 4 hours Magnesium No Notes: Memori a Oxide 3-22 (Same as: l 09:21: Mag-Ox Alvin 00 400) Magnesium oxide 299wf=161h g elemental magnesium Dose=____m g magnesium oxide (___mg elemental magnesium) Magnesium No Notes: Memori a Sulfate 3-22 WASTE: F/P l 09:21: - Sink; E Alvin 00 - [employer] Trash Bin Calcium No Notes: Memoria Gluconate 3-22 WASTE: F/P l 09:21: - Sink; E - [employer] Trash Bin sodium No Notes: Memoria phosphate 3-22 Infuse l 09:21: over 4 Seth 00 hour. Do not infuse phosphorou s [...] s with feeding tube less than 14 [place] (Dobhoff, J-tube etc) and pediatric and patients. potassium No Notes: Memori a phosphate-s 3-22 (Same as: l odium 09:21: Phos-NaK) Seth phosphate 00 Each 1.5 250 mg-280 gm pkt has mg-160 mg 250mg oral powder phosphorou for s. Mix reconstitut w/2.5oz ion water and stir. potassium No Notes: Memori a phosphate 3-22 (Same as: l 09:21: K Alvin 00 Phosphate. ) Do not infuse phosphorou s concurrent ly in the same line as TPN or IVF that contains calcium. For double lumen central lines, phosphorou s may be infused in a separate lumen from TPN. 1 mMol phoshate has 1.47 mEq potassium Infuse over 4 hours Magnesium No Notes: Memori a Oxide 3-22 (Same as: l 09:21: Mag-Ox Alvin 00 400) Magnesium oxide 165pt=626o g elemental magnesium Dose=____m g magnesium oxide (___mg elemental magnesium) Magnesium No Notes: Memori a Sulfate 3-22 WASTE: F/P l 09:21: - Sink; E - [employer] Trash Bin Calcium No Notes: Memoria Gluconate 3-22 WASTE: F/P l 09:21: - Sink; E - [employer] Trash Bin sodium No Notes: Memoria phosphate 3-22 Infuse l 09:21: over 4 Alvin 00 hour. Do not infuse phosphorou s [...] s with feeding tube less than 14 [place] (Dobhoff, J-tube etc) and pediatric and patients. potassium No Notes: Memori a phosphate-s 3-22 (Same as: l odium 09:21: Phos-NaK) Seth phosphate 00 Each 1.5 250 mg-280 gm pkt has mg-160 mg 250mg oral powder phosphorou for s. Mix reconstitut w/2.5oz ion water and stir. potassium No Notes: Memori a phosphate 3-22 (Same as: l 09:21: K 00 Phosphate. ) Do not infuse phosphorou s concurrent ly in the same line as TPN or IVF that contains calcium. For double lumen central lines, phosphorou s may be infused in a separate lumen from TPN. 1 mMol phoshate has 1.47 mEq potassium Infuse over 4 hours sugammadex No Notes: Memor ia 3-21 (Same as: l 19:16: [place]) Alvin sugammadex No Notes: Memor ia 3-21 (Same as: l 19:16: [place]) Seth sugammadex No Notes: Memor ia 3-21 (Same as: l 19:16: [place]) Seth sugammadex No Notes: Memor ia 3-21 (Same as: l 19:16: [place]) Alvin sugammadex No Notes: Memor ia 3-21 (Same as: l 19:16: [place]) Seth sugammadex 2019-0 No Notes: Memor ia 3-21 (Same as: l 19:16: [place]) Seth 00 sugammadex No Notes: Memor ia 3-21 (Same as: l 19:16: [place]) Seth 00 sugammadex 0 No Notes: Memor ia 3-21 (Same as: l 19:16: [place]) sugammadex No Notes: Memor ia 3-21 (Same as: l 19:16: [place]) Seth 00 sugammadex No Notes: Memor ia 3-21 (Same as: l 19:16: [place]) sugammadex No Notes: Memor ia 3-21 (Same as: l 19:16: [place]) sugammadex No Notes: Memor ia 3-21 (Same as: l 19:16: [place]) sugammadex No Notes: Memor ia 3-21 (Same as: l 19:16: [place]) sugammadex No Notes: Memor ia 3-21 (Same as: l 19:16: [place]) sugammadex No Route: IV, M emoria (ANES) 3-21 Drug form: l 16:26: SOLN, Alvin ONCE, Stop date: 06/28/18 11:26:00 CDT niCARdipine 2019-0 No Route: IV, Memoria (ANES) 3-21 Drug form: l 16:26: INJ, ONCE, Seth 00 Stop date: 06/28/18 11:26:00 CDT sugammadex 2019-0 No Route: IV, M emoria (ANES) 3-21 Drug form: l 16:26: SOLN, Seth ONCE, Stop date: 06/28/18 11:26:00 CDT niCARdipine 2019-0 No Route: IV, Memoria (ANES) 3-21 Drug form: l 16:26: INJ, ONCE, Seth 00 Stop date: 06/28/18 11:26:00 CDT sugammadex 2018-0 No Route: IV, M emoria (ANES) 3-21 Drug form: l 16:26: SOLN, Alvin 00 ONCE, Stop date: 06/28/18 11:26:00 CDT niCARdipine 2019-0 No Route: IV, Memoria (ANES) 3- Drug form: l 16:26: INJ, ONCE, Seth 00 Stop date: 06/28/18 11:26:00 CDT sugammadex 2018-0 No Route: IV, M emoria (ANES) 3- Drug form: l 16:26: SOLN, Seth ONCE, Stop date: 06/28/18 11:26:00 CDT niCARdipine 2018-0 No Route: IV, Memoria (ANES) 3- Drug form: l 16:26: INJ, ONCE, Alvin 00 Stop date: 06/28/18 11:26:00 CDT sugammadex 2018-0 No Route: IV, M emoria (ANES) - Drug form: l 16:26: SOLN, Seth ONCE, Stop date: 06/28/18 11:26:00 CDT niCARdipine 2018-0 No Route: IV, Memoria (ANES) 3- Drug form: l 16:26: INJ, ONCE, Alvin 00 Stop date: 06/28/18 11:26:00 CDT sugammadex 2018-0 No Route: IV, M emoria (ANES) - Drug form: l 16:26: SOLN, Seth ONCE, Stop date: 06/28/18 11:26:00 CDT niCARdipine 2018-0 No Route: IV, Memoria (ANES) 3- Drug form: l 16:26: INJ, ONCE, Seth 00 Stop date: 06/28/18 11:26:00 CDT sugammadex 2018-0 No Route: IV, M emoria (ANES) 3- Drug form: l 16:26: SOLN, Alvin ONCE, Stop date: 06/28/18 11:26:00 CDT niCARdipine 2019-0 No Route: IV, Memoria (ANES) 3- Drug form: l 16:26: INJ, ONCE, Seth 00 Stop date: 06/28/18 11:26:00 CDT sugammadex 2018-0 No Route: IV, M emoria (ANES) - Drug form: l 16:26: SOLN, Seth 00 ONCE, Stop date: 06/28/18 11:26:00 CDT niCARdipine 2019-0 No Route: IV, Memoria (ANES) - Drug form: l 16:26: INJ, ONCE, Seth 00 Stop date: 06/28/18 11:26:00 CDT sugammadex 2019-0 No Route: IV, M emoria (ANES) - Drug form: l 16:26: SOLN, Seth 00 ONCE, Stop date: 06/28/18 11:26:00 CDT niCARdipine 2018-0 No Route: IV, Memoria (ANES) - Drug form: l 16:26: INJ, ONCE, Seth 00 Stop date: 06/28/18 11:26:00 CDT sugammadex 2018-0 No Route: IV, M emoria (ANES) - Drug form: l 16:26: SOLN, Alvin ONCE, Stop date: 06/28/18 11:26:00 CDT niCARdipine 2018-0 No Route: IV, Memoria (ANES) 06-28 Drug form: l 16:26: INJ, ONCE, Alvin 00 Stop date: 06/28/18 11:26:00 CDT sugammadex 2018-0 No Route: IV, M emoria (ANES) - Drug form: l 16:26: SOLN, Seth ONCE, Stop date: 06/28/18 11:26:00 CDT niCARdipine 2019-0 No Route: IV, Memoria (ANES) - Drug form: l 16:26: INJ, ONCE, Seth 00 Stop date: 06/28/18 11:26:00 CDT sugammadex 2018-0 No Route: IV, M emoria (ANES) 3- Drug form: l 16:26: SOLN, Seth 00 ONCE, Stop date: 06/28/18 11:26:00 CDT niCARdipine 2019-0 No Route: IV, Memoria (ANES) 3- Drug form: l 16:26: INJ, ONCE, Alvin 00 Stop date: 06/28/18 11:26:00 CDT sugammadex 2019-0 No Route: IV, M emoria (ANES) 3- Drug form: l 16:26: SOLN, Seth 00 ONCE, Stop date: 06/28/18 11:26:00 CDT niCARdipine 2019-0 No Route: IV, Memoria (ANES) 3- Drug form: l 16:26: INJ, ONCE, Stop date: 06/28/18 11:26:00 CDT sugammadex 2019-0 No Route: IV, M emoria (ANES) 3- Drug form: l 16:26: SOLN, Seth ONCE, Stop date: 06/28/18 11:26:00 CDT niCARdipine 2019-0 No Route: IV, Memoria (ANES) 3- Drug form: l 16:26: INJ, ONCE, Stop date: 06/28/18 11:26:00 CDT ondansetron 2019-0 No Route: IV, Memoria (ANES) 3- Drug form: l 16:17: INJ, ONCE, Stop date: 06/28/18 11:17:00 CDT ondansetron 2019-0 No Route: IV, Memoria (ANES) 3- Drug form: l 16:17: INJ, ONCE, Stop date: 06/28/18 11:17:00 CDT ondansetron 2019-0 No Route: IV, Memoria (ANES) 3- Drug form: l 16:17: INJ, ONCE, Stop date: 06/28/18 11:17:00 CDT ondansetron 2019-0 No Route: IV, Memoria (ANES) 3- Drug form: l 16:17: INJ, ONCE, Stop date: 06/28/18 11:17:00 CDT ondansetron 2019-0 No Route: IV, Memoria (ANES) 3- Drug form: l 16:17: INJ, ONCE, Stop date: 06/28/18 11:17:00 CDT ondansetron 2019-0 No Route: IV, Memoria (ANES) 3- Drug form: l 16:17: INJ, ONCE, Stop date: 06/28/18 11:17:00 CDT ondansetron 2019-0 No Route: IV, Memoria (ANES) 3- Drug form: l 16:17: INJ, ONCE, Stop date: 06/28/18 11:17:00 CDT ondansetron 2019-0 No Route: IV, Memoria (ANES) 3- Drug form: l 16:17: INJ, ONCE, Stop date: 06/28/18 11:17:00 CDT ondansetron 2019-0 No Route: IV, Memoria (ANES) 3- Drug form: l 16:17: INJ, ONCE, Stop date: 06/28/18 11:17:00 CDT ondansetron 2019-0 No Route: IV, Memoria (ANES) 3- Drug form: l 16:17: INJ, ONCE, Stop date: 06/28/18 11:17:00 CDT ondansetron 2019-0 No Route: IV, Memoria (ANES) 3- Drug form: l 16:17: INJ, ONCE, Stop date: 06/28/18 11:17:00 CDT ondansetron 2019-0 No Route: IV, Memoria (ANES) 3- Drug form: l 16:17: INJ, ONCE, Stop date: 06/28/18 11:17:00 CDT ondansetron 2018-0 No Route: IV, Memoria (ANES) 3- Drug form: l 16:17: INJ, ONCE, Stop date: 06/28/18 11:17:00 CDT ondansetron 2019-0 No Route: IV, Memoria (ANES) 3- Drug form: l 16:17: INJ, ONCE, Stop date: 06/28/18 11:17:00 CDT protamine 2019-0 No Route: IV, Me moria (ANES) 3- Drug form: l 16:12: INJ, ONCE, Stop date: 06/28/18 11:12:00 CDT protamine 2019-0 No Route: IV, Me moria (ANES) 3- Drug form: l 16:12: INJ, ONCE, Stop date: 06/28/18 11:12:00 CDT protamine 0 No Route: IV, Me moria (ANES) 3- Drug form: l 16:12: INJ, ONCE, Stop date: 06/28/18 11:12:00 CDT protamine 0 No Route: IV, Me moria (ANES) 3- Drug form: l 16:12: INJ, ONCE, Stop date: 06/28/18 11:12:00 CDT protamine No Route: IV, Me moria (ANES) 3- Drug form: l 16:12: INJ, ONCE, Stop date: 06/28/18 11:12:00 CDT protamine No Route: IV, Me moria (ANES) 3- Drug form: l 16:12: INJ, ONCE, Stop date: 06/28/18 11:12:00 CDT protamine No Route: IV, Me moria (ANES) 3- Drug form: l 16:12: INJ, ONCE, Stop date: 06/28/18 11:12:00 CDT protamine 0 No Route: IV, Me moria (ANES) 3- Drug form: l 16:12: INJ, ONCE, Stop date: 06/28/18 11:12:00 CDT protamine No Route: IV, Me moria (ANES) 3- Drug form: l 16:12: INJ, ONCE, Stop date: 06/28/18 11:12:00 CDT protamine 0 No Route: IV, Me moria (ANES) 3- Drug form: l 16:12: INJ, ONCE, Stop date: 06/28/18 11:12:00 CDT protamine 0 No Route: IV, Me moria (ANES) 3- Drug form: l 16:12: INJ, ONCE, Stop date: 06/28/18 11:12:00 CDT protamine 0 No Route: IV, Me moria (ANES) 3- Drug form: l 16:12: INJ, ONCE, Seth 00 Stop date: 06/28/18 11:12:00 CDT protamine 2018-0 No Route: IV, Me moria (ANES) - Drug form: l 16:12: INJ, ONCE, Stop date: 06/28/18 11:12:00 CDT protamine 2018-0 No Route: IV, Me moria (ANES) - Drug form: l 16:12: INJ, ONCE, Stop date: 06/28/18 11:12:00 CDT diphenhydrA 2018-0 No Route: IV, Memoria MINE (ANES) 06-28 Drug form: l 15:52: INJ, ONCE, Stop date: 06/28/18 10:52:00 CDT diphenhydrA 2018-0 No Route: IV, Memoria MINE (ANES) 06-28 Drug form: l 15:52: INJ, ONCE, Stop date: 06/28/18 10:52:00 CDT diphenhydrA 2018-0 No Route: IV, Memoria MINE (ANES) 06-28 Drug form: l 15:52: INJ, ONCE, Stop date: 06/28/18 10:52:00 CDT diphenhydrA 2018-0 No Route: IV, Memoria MINE (ANES) - Drug form: l 15:52: INJ, ONCE, Stop date: 06/28/18 10:52:00 CDT diphenhydrA 2018-0 No Route: IV, Memoria MINE (ANES) - Drug form: l 15:52: INJ, ONCE, Stop date: 06/28/18 10:52:00 CDT diphenhydrA 2018-0 No Route: IV, Memoria MINE (ANES) 06-28 Drug form: l 15:52: INJ, ONCE, Stop date: 06/28/18 10:52:00 CDT diphenhydrA 2018-0 No Route: IV, Memoria MINE (ANES) - Drug form: l 15:52: INJ, ONCE, Stop date: 06/28/18 10:52:00 CDT diphenhydrA 2018-0 No Route: IV, Memoria MINE (ANES) 3- Drug form: l 15:52: INJ, ONCE, Stop date: 06/28/18 10:52:00 CDT diphenhydrA 2019-0 No Route: IV, Memoria MINE (ANES) 3- Drug form: l 15:52: INJ, ONCE, Stop date: 06/28/18 10:52:00 CDT diphenhydrA 2019-0 No Route: IV, Memoria MINE (ANES) 3- Drug form: l 15:52: INJ, ONCE, Stop date: 06/28/18 10:52:00 CDT diphenhydrA 2018-0 No Route: IV, Memoria MINE (ANES) 3- Drug form: l 15:52: INJ, ONCE, Stop date: 06/28/18 10:52:00 CDT diphenhydrA 2018-0 No Route: IV, Memoria MINE (ANES) 3- Drug form: l 15:52: INJ, ONCE, Stop date: 06/28/18 10:52:00 CDT diphenhydrA 2018-0 No Route: IV, Memoria MINE (ANES) - Drug form: l 15:52: INJ, ONCE, Stop date: 06/28/18 10:52:00 CDT diphenhydrA 2018-0 No Route: IV, Memoria MINE (ANES) 06-28 Drug form: l 15:52: INJ, ONCE, Stop date: 06/28/18 10:52:00 CDT Nicardipine 2018-0 No Notes: Boo swapnil 3-21 Same as: l 15:47: Cardene Concentrat ion: (0.1 mg/ 1 ml) Nicardipine 2019-0 No Notes: Boo swapnil 3-21 Same as: l 15:47: Card Concentrat ion: (0.1 mg/ 1 ml) Nicardipine 2019-0 No Notes: Boo swapnil 3-21 Same as: l 15:47: Cardene Concentrat ion: (0.1 mg/ 1 ml) Nicardipine 2018- No Notes: Boo swapnil 3-21 Same as: l 15:47: Cardene Alvin 00 Concentrat ion: (0.1 mg/ 1 ml) Nicardipine No Notes: Boo swapnil 3-21 Same as: l 15:47: Cardene Seth 00 Concentrat ion: (0.1 mg/ 1 ml) Nicardipine No Notes: Boo swapnil 3-21 Same as: l 15:47: Cardene Alvin 00 Concentrat ion: (0.1 mg/ 1 ml) Nicardipine No Notes: Boo swapnil 3-21 Same as: l 15:47: Cardene Seth 00 Concentrat ion: (0.1 mg/ 1 ml) Nicardipine No Notes: Boo swapnil 3-21 Same as: l 15:47: Cardene Alvin 00 Concentrat ion: (0.1 mg/ 1 ml) Nicardipine No Notes: Boo swapnil 3-21 Same as: l 15:47: Cardene Alvin 00 Concentrat ion: (0.1 mg/ 1 ml) Nicardipine No Notes: Boo swapnil 3-21 Same as: l 15:47: Cardene Alvin 00 Concentrat ion: (0.1 mg/ 1 ml) Nicardipine No Notes: Boo swapnil 3-21 Same as: l 15:47: Cardene Seth 00 Concentrat ion: (0.1 mg/ 1 ml) Nicardipine No Notes: Boo swapnil 3-21 Same as: l 15:47: Cardene Alvin 00 Concentrat ion: (0.1 mg/ 1 ml) Nicardipine No Notes: Boo swapnil 3-21 Same as: l 15:47: Cardene Seth 00 Concentrat ion: (0.1 mg/ 1 ml) Nicardipine No Notes: Boo swapnil 3-21 Same as: l 15:47: Cardene Alvin 00 Concentrat ion: (0.1 mg/ 1 ml) phenylephri No Route: IV, Memoria ne (ANES) 3- Drug form: l 15:42: INJ, ONCE, Seth 00 Stop date: 06/28/18 10:42:00 CDT phenylephri No Route: IV, Memoria ne (ANES) 3- Drug form: l 15:42: INJ, ONCE, Stop date: 06/28/18 10:42:00 CDT phenylephri 2019-0 No Route: IV, Memoria ne (ANES) 06-28 Drug form: l 15:42: INJ, ONCE, Stop date: 06/28/18 10:42:00 CDT phenylephri 2019-0 No Route: IV, Memoria ne (ANES) 06-28 Drug form: l 15:42: INJ, ONCE, Stop date: 06/28/18 10:42:00 CDT phenylephri 2019-0 No Route: IV, Memoria ne (ANES) 06-28 Drug form: l 15:42: INJ, ONCE, Stop date: 06/28/18 10:42:00 CDT phenylephri 2019-0 No Route: IV, Memoria ne (ANES) 06-28 Drug form: l 15:42: INJ, ONCE, Stop date: 06/28/18 10:42:00 CDT phenylephri 2019-0 No Route: IV, Memoria ne (ANES) 06-28 Drug form: l 15:42: INJ, ONCE, Stop date: 06/28/18 10:42:00 CDT phenylephri 2019-0 No Route: IV, Memoria ne (ANES) 06-28 Drug form: l 15:42: INJ, ONCE, Stop date: 06/28/18 10:42:00 CDT phenylephri 2019-0 No Route: IV, Memoria ne (ANES) 06-28 Drug form: l 15:42: INJ, ONCE, Stop date: 06/28/18 10:42:00 CDT phenylephri 2019-0 No Route: IV, Memoria ne (ANES) 06-28 Drug form: l 15:42: INJ, ONCE, Stop date: 06/28/18 10:42:00 CDT phenylephri 2019-0 No Route: IV, Memoria ne (ANES) 06-28 Drug form: l 15:42: INJ, ONCE, Stop date: 06/28/18 10:42:00 CDT phenylephri 2019-0 No Route: IV, Memoria ne (ANES) 3- Drug form: l 15:42: INJ, ONCE, Stop date: 06/28/18 10:42:00 CDT phenylephri 2019-0 No Route: IV, Memoria ne (ANES) 3- Drug form: l 15:42: INJ, ONCE, Stop date: 06/28/18 10:42:00 CDT phenylephri 2019-0 No Route: IV, Memoria ne (ANES) 3- Drug form: l 15:42: INJ, ONCE, Stop date: 06/28/18 10:42:00 CDT fentaNYL 2019-0 No Route: IV, Mem oria (ANES) 3- Drug form: l 14:52: INJ, ONCE, Stop date: 06/28/18 9:52:00 CDT propofol 2019-0 No Route: IV, Mem oria (ANES) 3 Drug form: l 14:52: INJ, ONCE, Stop date: 06/28/18 9:52:00 CDT rocuronium 2019-0 No Route: IV, M emoria (ANES) 3- Drug form: l 14:52: INJ, ONCE, Stop date: 06/28/18 9:52:00 CDT fentaNYL 2019-0 No Route: IV, Mem oria (ANES) 3- Drug form: l 14:52: INJ, ONCE, Stop date: 06/28/18 9:52:00 CDT propofol 2019-0 No Route: IV, Mem oria (ANES) 3- Drug form: l 14:52: INJ, ONCE, Stop date: 06/28/18 9:52:00 CDT rocuronium 2019-0 No Route: IV, M emoria (ANES) 3- Drug form: l 14:52: INJ, ONCE, Stop date: 06/28/18 9:52:00 CDT fentaNYL 2019-0 No Route: IV, Mem oria (ANES) 3- Drug form: l 14:52: INJ, ONCE, Stop date: 06/28/18 9:52:00 CDT propofol 2019-0 No Route: IV, Mem oria (ANES) 3-21 Drug form: l 14:52: INJ, ONCE, Stop date: 06/28/18 9:52:00 CDT rocuronium 2019-0 No Route: IV, M emoria (ANES) 3-21 Drug form: l 14:52: INJ, ONCE, Stop date: 06/28/18 9:52:00 CDT fentaNYL 2019-0 No Route: IV, Mem oria (ANES) 3-21 Drug form: l 14:52: INJ, ONCE, Stop date: 06/28/18 9:52:00 CDT propofol 2019-0 No Route: IV, Mem oria (ANES) 3-21 Drug form: l 14:52: INJ, ONCE, Stop date: 06/28/18 9:52:00 CDT rocuronium 2019-0 No Route: IV, M emoria (ANES) 3-21 Drug form: l 14:52: INJ, ONCE, Stop date: 06/28/18 9:52:00 CDT fentaNYL 2019-0 No Route: IV, Mem oria (ANES) 3-21 Drug form: l 14:52: INJ, ONCE, Stop date: 06/28/18 9:52:00 CDT propofol 2019-0 No Route: IV, Mem oria (ANES) 3-21 Drug form: l 14:52: INJ, ONCE, Stop date: 06/28/18 9:52:00 CDT rocuronium 2019-0 No Route: IV, M emoria (ANES) 3-21 Drug form: l 14:52: INJ, ONCE, Stop date: 06/28/18 9:52:00 CDT fentaNYL 2019-0 No Route: IV, Mem oria (ANES) 3-21 Drug form: l 14:52: INJ, ONCE, Stop date: 06/28/18 9:52:00 CDT propofol 2019-0 No Route: IV, Mem oria (ANES) 3-21 Drug form: l 14:52: INJ, ONCE, Stop date: 06/28/18 9:52:00 CDT rocuronium 2019-0 No Route: IV, M emoria (ANES) 3-21 Drug form: l 14:52: INJ, ONCE, Stop date: 06/28/18 9:52:00 CDT fentaNYL 2019-0 No Route: IV, Mem oria (ANES) 3-21 Drug form: l 14:52: INJ, ONCE, Stop date: 06/28/18 9:52:00 CDT propofol 2019-0 No Route: IV, Mem oria (ANES) 3- Drug form: l 14:52: INJ, ONCE, Stop date: 06/28/18 9:52:00 CDT rocuronium 2019-0 No Route: IV, M emoria (ANES) 3- Drug form: l 14:52: INJ, ONCE, Stop date: 06/28/18 9:52:00 CDT fentaNYL 2019-0 No Route: IV, Mem oria (ANES) 3- Drug form: l 14:52: INJ, ONCE, Stop date: 06/28/18 9:52:00 CDT propofol 2019-0 No Route: IV, Mem oria (ANES) 3- Drug form: l 14:52: INJ, ONCE, Stop date: 06/28/18 9:52:00 CDT rocuronium 2019-0 No Route: IV, M emoria (ANES) 3- Drug form: l 14:52: INJ, ONCE, Stop date: 06/28/18 9:52:00 CDT fentaNYL 2019-0 No Route: IV, Mem oria (ANES) 3-21 Drug form: l 14:52: INJ, ONCE, Stop date: 06/28/18 9:52:00 CDT propofol 2019-0 No Route: IV, Mem oria (ANES) 3-21 Drug form: l 14:52: INJ, ONCE, Stop date: 06/28/18 9:52:00 CDT rocuronium 2019-0 No Route: IV, M emoria (ANES) 3-21 Drug form: l 14:52: INJ, ONCE, Stop date: 06/28/18 9:52:00 CDT fentaNYL 2019-0 No Route: IV, Mem oria (ANES) 3-21 Drug form: l 14:52: INJ, ONCE, Stop date: 06/28/18 9:52:00 CDT propofol 2019-0 No Route: IV, Mem oria (ANES) 3-21 Drug form: l 14:52: INJ, ONCE, Stop date: 06/28/18 9:52:00 CDT rocuronium 2019-0 No Route: IV, M emoria (ANES) 3-21 Drug form: l 14:52: INJ, ONCE, Stop date: 06/28/18 9:52:00 CDT fentaNYL 2019-0 No Route: IV, Mem oria (ANES) 3- Drug form: l 14:52: INJ, ONCE, Stop date: 06/28/18 9:52:00 CDT propofol 2019-0 No Route: IV, Mem oria (ANES) 3- Drug form: l 14:52: INJ, ONCE, Stop date: 06/28/18 9:52:00 CDT rocuronium 2019-0 No Route: IV, M emoria (ANES) 3-21 Drug form: l 14:52: INJ, ONCE, Stop date: 06/28/18 9:52:00 CDT fentaNYL 2019-0 No Route: IV, Mem oria (ANES) 3- Drug form: l 14:52: INJ, ONCE, Stop date: 06/28/18 9:52:00 CDT propofol 2019-0 No Route: IV, Mem oria (ANES) 3-21 Drug form: l 14:52: INJ, ONCE, Stop date: 06/28/18 9:52:00 CDT rocuronium 2019-0 No Route: IV, M emoria (ANES) 3-21 Drug form: l 14:52: INJ, ONCE, Stop date: 06/28/18 9:52:00 CDT fentaNYL 2019-0 No Route: IV, Mem oria (ANES) 3-21 Drug form: l 14:52: INJ, ONCE, Stop date: 06/28/18 9:52:00 CDT propofol 2019-0 No Route: IV, Mem oria (ANES) 3-21 Drug form: l 14:52: INJ, ONCE, Stop date: 06/28/18 9:52:00 CDT rocuronium 2019-0 No Route: IV, Breanne emoria (ANES) 3-21 Drug form: l 14:52: INJ, ONCE, Stop date: 06/28/18 9:52:00 CDT fentaNYL 2019-0 No Route: IV, Mem oria (ANES) 3-21 Drug form: l 14:52: INJ, ONCE, Stop date: 06/28/18 9:52:00 CDT propofol 2019-0 No Route: IV, Mem oria (ANES) 3-21 Drug form: l 14:52: INJ, ONCE, Stop date: 06/28/18 9:52:00 CDT rocuronium 2019-0 No Route: IV, Breanne emoria (ANES) 3-21 Drug form: l 14:52: INJ, ONCE, Stop date: 06/28/18 9:52:00 CDT heparin 2019-0 No Route: IV, Boo swapnil (ANES) 3-21 Drug form: l 14:42: INJ, ONCE, Stop date: 06/28/18 9:42:00 CDT heparin 2019-0 No Route: IV, Boo swapnil (ANES) 3-21 Drug form: l 14:42: INJ, ONCE, Stop date: 06/28/18 9:42:00 CDT heparin 2019-0 No Route: IV, Boo swapnil (ANES) 3-21 Drug form: l 14:42: INJ, ONCE, Stop date: 06/28/18 9:42:00 CDT heparin 2019-0 No Route: IV, Boo swapnil (ANES) 3-21 Drug form: l 14:42: INJ, ONCE, Stop date: 06/28/18 9:42:00 CDT heparin 2019-0 No Route: IV, Boo swapnil (ANES) 3-21 Drug form: l 14:42: INJ, ONCE, Stop date: 06/28/18 9:42:00 CDT heparin 2019-0 No Route: IV, Boo swapnil (ANES) 3-21 Drug form: l 14:42: INJ, ONCE, Stop date: 06/28/18 9:42:00 CDT heparin 2019-0 No Route: IV, Boo swapnil (ANES) 3-21 Drug form: l 14:42: INJ, ONCE, Seth 00 Stop date: 06/28/18 9:42:00 CDT heparin 2019-0 No Route: IV, Boo swapnil (ANES) 3-21 Drug form: l 14:42: INJ, ONCE, Stop date: 06/28/18 9:42:00 CDT heparin 2019-0 No Route: IV, Boo swapnil (ANES) 3-21 Drug form: l 14:42: INJ, ONCE, Stop date: 06/28/18 9:42:00 CDT heparin 2019-0 No Route: IV, Boo swapnil (ANES) 3-21 Drug form: l 14:42: INJ, ONCE, Stop date: 06/28/18 9:42:00 CDT heparin 2019-0 No Route: IV, Boo swapnil (ANES) 3-21 Drug form: l 14:42: INJ, ONCE, Stop date: 06/28/18 9:42:00 CDT heparin 2019-0 No Route: IV, Boo swapnil (ANES) 3-21 Drug form: l 14:42: INJ, ONCE, Stop date: 06/28/18 9:42:00 CDT heparin 2019-0 No Route: IV, Boo swapnil (ANES) 3-21 Drug form: l 14:42: INJ, ONCE, Stop date: 06/28/18 9:42:00 CDT heparin 2019-0 No Route: IV, Boo swapnil (ANES) 3-21 Drug form: l 14:42: INJ, ONCE, Alvin 00 Stop date: 06/28/18 9:42:00 CDT DepoMedrol 2019-0 No Route: IV, M emoria (ANES) 3-21 Drug form: l 14:32: INJ, ONCE, Seth 00 Stop date: 06/28/18 9:32:00 CDT DepoMedrol 2019-0 No Route: IV, M emoria (ANES) 3-21 Drug form: l 14:32: INJ, ONCE, Stop date: 06/28/18 9:32:00 CDT DepoMedrol No Route: IV, M emoria (ANES) 3- Drug form: l 14:32: INJ, ONCE, Stop date: 06/28/18 9:32:00 CDT DepoMedrol No Route: IV, M emoria (ANES) 3- Drug form: l 14:32: INJ, ONCE, Stop date: 06/28/18 9:32:00 CDT DepoMedrol No Route: IV, M emoria (ANES) 3- Drug form: l 14:32: INJ, ONCE, Stop date: 06/28/18 9:32:00 CDT DepoMedrol No Route: IV, M emoria (ANES) 06-28 Drug form: l 14:32: INJ, ONCE, Stop date: 06/28/18 9:32:00 CDT DepoMedrol No Route: IV, M emoria (ANES) 3- Drug form: l 14:32: INJ, ONCE, Stop date: 06/28/18 9:32:00 CDT DepoMedrol No Route: IV, M emoria (ANES) 3- Drug form: l 14:32: INJ, ONCE, Stop date: 06/28/18 9:32:00 CDT DepoMedrol No Route: IV, M emoria (ANES) 3- Drug form: l 14:32: INJ, ONCE, Stop date: 06/28/18 9:32:00 CDT DepoMedrol No Route: IV, M emoria (ANES) 3- Drug form: l 14:32: INJ, ONCE, Stop date: 06/28/18 9:32:00 CDT DepoMedrol No Route: IV, M emoria (ANES) 3- Drug form: l 14:32: INJ, ONCE, Stop date: 06/28/18 9:32:00 CDT DepoMedrol 2019-0 No Route: IV, Breanne emoria (ANES) 06-28 Drug form: l 14:32: INJ, ONCE, Stop date: 06/28/18 9:32:00 CDT DepoMedrol 2019-0 No Route: IV, Beranne emoria (ANES) 06-28 Drug form: l 14:32: INJ, ONCE, Stop date: 06/28/18 9:32:00 CDT DepoMedrol 2018-0 No Route: IV, Breanne emoria (ANES) 06-28 Drug form: l 14:32: INJ, ONCE, Stop date: 06/28/18 9:32:00 CDT iodixanol 2019-0 No 150 mL, Memor ia 06-28 Route: l 14:18: INTRAARTER Seth 00 IAL, Dosing Weight 82.273, kg, ONCE, Start date: 06/28/18 9:18:00 CDT, Stop date: 06/28/18 9:18:00 CDT iodixanol 2019-0 No 150 mL, Memor ia 06-28 Route: l 14:18: INTRAARTER Seth 00 IAL, Dosing Weight 82.273, kg, ONCE, Start date: 06/28/18 9:18:00 CDT, Stop date: 06/28/18 9:18:00 CDT iodixanol 2019-0 No 150 mL, Memor ia 06-28 Route: l 14:18: INTRAARTER Alvin 00 IAL, Dosing Weight 82.273, kg, ONCE, Start date: 06/28/18 9:18:00 CDT, Stop date: 06/28/18 9:18:00 CDT iodixanol 2019-0 No 150 mL, Memor ia 06-28 Route: l 14:18: INTRAARTER Alvin 00 IAL, Dosing Weight 82.273, kg, ONCE, Start date: 06/28/18 9:18:00 CDT, Stop date: 06/28/18 9:18:00 CDT iodixanol 2019-0 No 150 mL, Memor ia 06-28 Route: l 14:18: INTRAARTER Alvin 00 IAL, Dosing Weight 82.273, kg, ONCE, Start date: 06/28/18 9:18:00 CDT, Stop date: 06/28/18 9:18:00 CDT iodixanol 2019-0 No 150 mL, Memor ia 3-21 Route: l 14:18: INTRAARTER Alvin 00 IAL, Dosing Weight 82.273, kg, ONCE, Start date: 06/28/18 9:18:00 CDT, Stop date: 06/28/18 9:18:00 CDT iodixanol 2019-0 No 150 mL, Memor ia 3-21 Route: l 14:18: INTRAARTER Alvin 00 IAL, Dosing Weight 82.273, kg, ONCE, Start date: 06/28/18 9:18:00 CDT, Stop date: 06/28/18 9:18:00 CDT iodixanol 2019-0 No 150 mL, Memor ia 3-21 Route: l 14:18: INTRAARTER Alvin 00 IAL, Dosing Weight 82.273, kg, ONCE, Start date: 06/28/18 9:18:00 CDT, Stop date: 06/28/18 9:18:00 CDT iodixanol 2019-0 No 150 mL, Memor ia 3-21 Route: l 14:18: INTRAARTER Seth 00 IAL, Dosing Weight 82.273, kg, ONCE, Start date: 06/28/18 9:18:00 CDT, Stop date: 06/28/18 9:18:00 CDT iodixanol 2019-0 No 150 mL, Memor ia 3-21 Route: l 14:18: INTRAARTER Seth 00 IAL, Dosing Weight 82.273, kg, ONCE, Start date: 06/28/18 9:18:00 CDT, Stop date: 06/28/18 9:18:00 CDT iodixanol 2019-0 No 150 mL, Memor ia 3-21 Route: l 14:18: INTRAARTER Alvin 00 IAL, Dosing Weight 82.273, kg, ONCE, Start date: 06/28/18 9:18:00 CDT, Stop date: 06/28/18 9:18:00 CDT iodixanol 2019-0 No 150 mL, Memor ia 3-21 Route: l 14:18: INTRAARTER Seth 00 IAL, Dosing Weight 82.273, kg, ONCE, Start date: 06/28/18 9:18:00 CDT, Stop date: 06/28/18 9:18:00 CDT iodixanol 2019-0 No 150 mL, Memor ia 3-21 Route: l 14:18: INTRAARTER Seth 00 IAL, Dosing Weight 82.273, kg, ONCE, Start date: 06/28/18 9:18:00 CDT, Stop date: 06/28/18 9:18:00 CDT iodixanol 2019-0 No 150 mL, Memor ia 3-21 Route: l 14:18: INTRAARTER Alvin 00 IAL, Dosing Weight 82.273, kg, ONCE, Start date: 06/28/18 9:18:00 CDT, Stop date: 06/28/18 9:18:00 CDT Ondansetron 2019-0 No 4 mg, Memor ia 3-21 Route: l 14:16: IVP, ONCE, Alvin 00 Dosing Weight 82.273, kg, PRN Nausea & Vomiting, Start date: 06/28/18 9:16:00 CDT Hydralazine 2019-0 No 10 mg, Boo swapnil 3-21 Route: l 14:16: IVP, Alvin 00 Q20Min, Dosing Weight 82.273, kg, PRN [...] swapnil 3-21 Route: l 14:16: IVP, PRN, Seth 00 Dosing Weight 82.273, kg, PRN Benzodiaze pine Reversal, Initial dose, Start date: 06/28/18 9:16:00 CDT, Duration: 30 day, Stop date: 07/28/18 9:15:00 CDT Naloxone 2019-0 No 0.4 mg, Memori a 3-21 Route: l 14:16: IVP, Seth 00 Q2MIN, Dosing Weight 82.273, kg, PRN Narcotic Reversal, Start date: 06/28/18 9:16:00 CDT, Duration: 8 doses or times, Stop date: Limited # of times Ondansetron 2019-0 No 4 mg, Memor ia 3-21 Route: l 14:16: IVP, ONCE, Alvin 00 Dosing Weight 82.273, kg, PRN Nausea [...] swapnil 3-21 Route: l 14:16: IVP, PRN, Dosing Weight 82.273, kg, PRN Benzodiaze pine Reversal, Initial dose, Start date: 06/28/18 9:16:00 CDT, Duration: 30 day, Stop date: 07/28/18 9:15:00 CDT Naloxone 2019-0 No 0.4 mg, Memori a 3-21 Route: l 14:16: IVP, Alvin 00 Q2MIN, Dosing Weight 82.273, kg, PRN Narcotic Reversal, Start date: 06/28/18 9:16:00 CDT, Duration: 8 doses or times, Stop date: Limited # of times Ondansetron 2019-0 No 4 mg, Memor ia 3-21 Route: l 14:16: IVP, ONCE, Seth 00 Dosing Weight 82.273, kg, PRN Nausea & Vomiting, Start date: 06/28/18 9:16:00 CDT Hydralazine 2019-0 No 10 mg, Boo swapnil 3-21 Route: l 14:16: IVP, Alvin 00 Q20Min, Dosing Weight 82.273, kg, PRN [...] swapnil 3-21 Route: l 14:16: IVP, PRN, Seth 00 Dosing Weight 82.273, kg, PRN Benzodiaze pine Reversal, Initial dose, Start date: 06/28/18 9:16:00 CDT, Duration: 30 day, Stop date: 07/28/18 9:15:00 CDT Naloxone 2019-0 No 0.4 mg, Memori a 3-21 Route: l 14:16: IVP, Alvin 00 Q2MIN, Dosing Weight 82.273, kg, PRN Narcotic Reversal, Start date: 06/28/18 9:16:00 CDT, Duration: 8 doses or times, Stop date: Limited # of times Ondansetron 2019-0 No 4 mg, Memor ia 3-21 Route: l 14:16: IVP, ONCE, Dosing Weight 82.273, kg, PRN Nausea & Vomiting, Start date: 06/28/18 9:16:00 CDT Hydralazine 2019-0 No 10 mg, Boo swapnil 3-21 Route: l 14:16: IVP, Alvin 00 Q20Min, Dosing Weight 82.273, kg, PRN [...] swapnil 3-21 Route: l 14:16: IVP, PRN, Alvin Dosing Weight 82.273, kg, PRN Benzodiaze pine Reversal, Initial dose, Start date: 06/28/18 9:16:00 CDT, Duration: 30 day, Stop date: 07/28/18 9:15:00 CDT Naloxone 2019-0 No 0.4 mg, Memori a 3-21 Route: l 14:16: IVP, Seth 00 Q2MIN, Dosing Weight 82.273, kg, PRN Narcotic Reversal, Start date: 06/28/18 9:16:00 CDT, Duration: 8 doses or times, Stop date: Limited # of times Ondansetron 2019-0 No 4 mg, Memor ia 3-21 Route: l 14:16: IVP, ONCE, Dosing Weight 82.273, kg, PRN Nausea & Vomiting, Start date: 06/28/18 9:16:00 CDT Hydralazine 2019-0 No 10 mg, Boo swapnil 3-21 Route: l 14:16: IVP, Alvin 00 Q20Min, Dosing Weight 82.273, kg, PRN [...] swapnil 3-21 Route: l 14:16: IVP, PRN, Seth 00 Dosing Weight 82.273, kg, PRN Benzodiaze pine Reversal, Initial dose, Start date: 06/28/18 9:16:00 CDT, Duration: 30 day, Stop date: 07/28/18 9:15:00 CDT Naloxone 2019-0 No 0.4 mg, Memori a 3-21 Route: l 14:16: IVP, Alvin 00 Q2MIN, Dosing Weight 82.273, kg, PRN Narcotic Reversal, Start date: 06/28/18 9:16:00 CDT, Duration: 8 doses or times, Stop date: Limited # of times Ondansetron 2019-0 No 4 mg, Memor ia 3-21 Route: l 14:16: IVP, ONCE, Seth 00 Dosing Weight 82.273, kg, PRN Nausea & Vomiting, Start date: 06/28/18 9:16:00 CDT Hydralazine 2019-0 No 10 mg, Boo swapnil 3-21 Route: l 14:16: IVP, Alvin 00 Q20Min, Dosing Weight 82.273, kg, PRN [...] swapnil 3-21 Route: l 14:16: IVP, PRN, Seth 00 Dosing Weight 82.273, kg, PRN Benzodiaze pine Reversal, Initial dose, Start date: 06/28/18 9:16:00 CDT, Duration: 30 day, Stop date: 07/28/18 9:15:00 CDT Naloxone 2019-0 No 0.4 mg, Memori a 3-21 Route: l 14:16: IVP, Seth 00 Q2MIN, Dosing Weight 82.273, kg, PRN Narcotic Reversal, Start date: 06/28/18 9:16:00 CDT, Duration: 8 doses or times, Stop date: Limited # of times Ondansetron 2019-0 No 4 mg, Memor ia 3-21 Route: l 14:16: IVP, ONCE, Alvin 00 Dosing Weight 82.273, kg, PRN Nausea & Vomiting, Start date: 06/28/18 9:16:00 CDT Hydralazine 2019-0 No 10 mg, Boo swapnil 3-21 Route: l 14:16: IVP, Alvin 00 Q20Min, Dosing Weight 82.273, kg, PRN [...] swapnil 3-21 Route: l 14:16: IVP, PRN, Dosing Weight 82.273, kg, PRN Benzodiaze pine Reversal, Initial dose, Start date: 06/28/18 9:16:00 CDT, Duration: 30 day, Stop date: 07/28/18 9:15:00 CDT Naloxone 2019-0 No 0.4 mg, Memori a 3- Route: l 14:16: IVP, Alvin 00 Q2MIN, Dosing Weight 82.273, kg, PRN Narcotic Reversal, Start date: 06/28/18 9:16:00 CDT, Duration: 8 doses or times, Stop date: Limited # of times Ondansetron 2019-0 No 4 mg, Memor ia 3-21 Route: l 14:16: IVP, ONCE, Dosing Weight 82.273, kg, PRN Nausea & Vomiting, Start date: 06/28/18 9:16:00 CDT Hydralazine 2019-0 No 10 mg, Boo swapnil 3-21 Route: l 14:16: IVP, Seth 00 Q20Min, Dosing Weight 82.273, kg, PRN Elevated BP, Start date: 06/28/18 9:16:00 CDT, Duration: 2 doses or times, Stop date: Limited # of times Fentanyl 2019-0 No 25 Memoria 3-21 microgram, l 14:16: Route: Alvin IVP, Q5Min, Dosing Weight 82.273, kg, PRN Pain Score 4-6, Priority: Routine, Start date: 06/28/18 9:16:00 CDT, Duration: 4 doses or times, Stop date: Limited # of times Flumazenil 2019-0 No 0.2 mg, Boo swapnil 3-21 Route: l 14:16: IVP, PRN, Dosing Weight 82.273, kg, PRN Benzodiaze pine Reversal, Initial dose, Start date: 06/28/18 9:16:00 CDT, Duration: 30 day, Stop date: 07/28/18 9:15:00 CDT Naloxone 2019-0 No 0.4 mg, Memori a 3-21 Route: l 14:16: IVP, Seth 00 Q2MIN, Dosing Weight 82.273, kg, PRN Narcotic Reversal, Start date: 06/28/18 9:16:00 CDT, Duration: 8 doses or times, Stop date: Limited # of times Ondansetron 2019-0 No 4 mg, Memor ia 3-21 Route: l 14:16: IVP, ONCE, Dosing Weight 82.273, kg, PRN Nausea & Vomiting, Start date: 06/28/18 9:16:00 CDT Hydralazine 2019-0 No 10 mg, Boo swapnil 3-21 Route: l 14:16: IVP, 00 Q20Min, Dosing Weight 82.273, kg, PRN Elevated BP, Start date: 06/28/18 9:16:00 CDT, Duration: 2 doses or times, Stop date: Limited # of times Fentanyl 2019-0 No 25 Memoria 3-21 microgram, l 14:16: Route: IVP, Q5Min, Dosing Weight 82.273, kg, PRN Pain Score 4-6, Priority: Routine, Start date: 06/28/18 9:16:00 CDT, Duration: 4 doses or times, Stop date: Limited # of times Flumazenil 2019-0 No 0.2 mg, Boo swapnil 3-21 Route: l 14:16: IVP, PRN, Dosing Weight 82.273, kg, PRN Benzodiaze pine Reversal, Initial dose, Start date: 06/28/18 9:16:00 CDT, Duration: 30 day, Stop date: 07/28/18 9:15:00 CDT Naloxone 2019-0 No 0.4 mg, Memori a 3-21 Route: l 14:16: IVP, Seth 00 Q2MIN, Dosing Weight 82.273, kg, PRN Narcotic Reversal, Start date: 06/28/18 9:16:00 CDT, Duration: 8 doses or times, Stop date: Limited # of times Ondansetron 2019-0 No 4 mg, Memor ia 3-21 Route: l 14:16: IVP, ONCE, Seth 00 Dosing Weight 82.273, kg, PRN Nausea & Vomiting, Start date: 06/28/18 9:16:00 CDT Hydralazine 2019-0 No 10 mg, Boo swapnil 3-21 Route: l 14:16: IVP, Seth 00 Q20Min, Dosing Weight 82.273, kg, PRN Elevated BP, Start date: 06/28/18 9:16:00 CDT, Duration: 2 doses or times, Stop date: Limited # of times Fentanyl 2019-0 No 25 Memoria 3-21 microgram, l 14:16: Route: Alvin 00 IVP, Q5Min, Dosing Weight 82.273, kg, PRN Pain Score 4-6, Priority: Routine, Start date: 06/28/18 9:16:00 CDT, Duration: 4 doses or times, Stop date: Limited # of times Flumazenil 2019-0 No 0.2 mg, Boo swapnil 3-21 Route: l 14:16: IVP, PRN, Alvin 00 Dosing Weight 82.273, kg, PRN Benzodiaze pine Reversal, Initial dose, Start date: 06/28/18 9:16:00 CDT, Duration: 30 day, Stop date: 07/28/18 9:15:00 CDT Naloxone 2019-0 No 0.4 mg, Memori a 3-21 Route: l 14:16: IVP, Seth 00 Q2MIN, Dosing Weight 82.273, kg, PRN Narcotic Reversal, Start date: 06/28/18 9:16:00 CDT, Duration: 8 doses or times, Stop date: Limited # of times Ondansetron 2019-0 No 4 mg, Memor ia 3-21 Route: l 14:16: IVP, ONCE, Alvin Dosing Weight 82.273, kg, PRN Nausea & Vomiting, Start date: 06/28/18 9:16:00 CDT Hydralazine 2019-0 No 10 mg, Boo swapnil 3-21 Route: l 14:16: IVP, Seth 00 Q20Min, Dosing Weight 82.273, kg, PRN Elevated BP, Start date: 06/28/18 9:16:00 CDT, Duration: 2 doses or times, Stop date: Limited # of times Fentanyl 2019-0 No 25 Memoria 3-21 microgram, l 14:16: Route: Alvin 00 IVP, Q5Min, Dosing Weight 82.273, kg, PRN Pain Score 4-6, Priority: Routine, Start date: 06/28/18 9:16:00 CDT, Duration: 4 doses or times, Stop date: Limited # of times Flumazenil 2019-0 No 0.2 mg, Boo swapnil 3-21 Route: l 14:16: IVP, PRN, Dosing Weight 82.273, kg, PRN Benzodiaze pine Reversal, Initial dose, Start date: 06/28/18 9:16:00 CDT, Duration: 30 day, Stop date: 07/28/18 9:15:00 CDT Naloxone 2019-0 No 0.4 mg, Memori a 3-21 Route: l 14:16: IVP, Alvin 00 Q2MIN, Dosing Weight 82.273, kg, PRN Narcotic Reversal, Start date: 06/28/18 9:16:00 CDT, Duration: 8 doses or times, Stop date: Limited # of times Ondansetron 2019-0 No 4 mg, Memor ia 3-21 Route: l 14:16: IVP, ONCE, Seth 00 Dosing Weight 82.273, kg, PRN Nausea & Vomiting, Start date: 06/28/18 9:16:00 CDT Hydralazine 2019-0 No 10 mg, Boo swapnil 3-21 Route: l 14:16: IVP, Seth 00 Q20Min, Dosing Weight 82.273, kg, PRN Elevated BP, Start date: 06/28/18 9:16:00 CDT, Duration: 2 doses or times, Stop date: Limited # of times Fentanyl 2019-0 No 25 Memoria 3-21 microgram, l 14:16: Route: Alvin 00 IVP, Q5Min, Dosing Weight 82.273, kg, PRN Pain Score 4-6, Priority: Routine, Start date: 06/28/18 9:16:00 CDT, Duration: 4 doses or times, Stop date: Limited # of times Flumazenil 2019-0 No 0.2 mg, Boo swapnil 3-21 Route: l 14:16: IVP, PRN, Dosing Weight 82.273, kg, PRN Benzodiaze pine Reversal, Initial dose, Start date: 06/28/18 9:16:00 CDT, Duration: 30 day, Stop date: 07/28/18 9:15:00 CDT Naloxone 2019-0 No 0.4 mg, Memori a 3-21 Route: l 14:16: IVP, Alvin 00 Q2MIN, Dosing Weight 82.273, kg, PRN Narcotic Reversal, Start date: 06/28/18 9:16:00 CDT, Duration: 8 doses or times, Stop date: Limited # of times Ondansetron 2019-0 No 4 mg, Memor ia 3-21 Route: l 14:16: IVP, ONCE, Dosing Weight 82.273, kg, PRN Nausea & Vomiting, Start date: 06/28/18 9:16:00 CDT Hydralazine 2019-0 No 10 mg, Boo swapnil 3-21 Route: l 14:16: IVP, Alvin 00 Q20Min, Dosing Weight 82.273, kg, PRN Elevated BP, Start date: 06/28/18 9:16:00 CDT, Duration: 2 doses or times, Stop date: Limited # of times Fentanyl 2019-0 No 25 Memoria 3-21 microgram, l 14:16: Route: Alvin 00 IVP, Q5Min, Dosing Weight 82.273, kg, PRN Pain Score 4-6, Priority: Routine, Start date: 06/28/18 9:16:00 CDT, Duration: 4 doses or times, Stop date: Limited # of times Flumazenil 2019-0 No 0.2 mg, Boo swapnil 3-21 Route: l 14:16: IVP, PRN, Alvin 00 Dosing Weight 82.273, kg, PRN Benzodiaze pine Reversal, Initial dose, Start date: 06/28/18 9:16:00 CDT, Duration: 30 day, Stop date: 07/28/18 9:15:00 CDT Naloxone 2019-0 No 0.4 mg, Memori a 3-21 Route: l 14:16: IVP, Seth 00 Q2MIN, Dosing Weight 82.273, kg, PRN Narcotic Reversal, Start date: 06/28/18 9:16:00 CDT, Duration: 8 doses or times, Stop date: Limited # of times Ondansetron 2019-0 No 4 mg, Mem[facility] ia 3-21 Route: l 14:16: IVP, ONCE, Seth 00 Dosing Weight 82.273, kg, PRN Nausea & Vomiting, Start date: 06/28/18 9:16:00 CDT Hydralazine 2019-0 No 10 mg, Boo swapnil 3-21 Route: l 14:16: IVP, Alvin 00 Q20Min, Dosing Weight 82.273, kg, PRN Elevated BP, Start date: 06/28/18 9:16:00 CDT, Duration: 2 doses or times, Stop date: Limited # of times Fentanyl 2019-0 No 25 Memoria 3-21 microgram, l 14:16: Route: Alvin 00 IVP, Q5Min, Dosing Weight 82.273, kg, PRN Pain Score 4-6, Priority: Routine, Start date: 06/28/18 9:16:00 CDT, Duration: 4 doses or times, Stop date: Limited # of times Flumazenil 2019-0 No 0.2 mg, Boo swapnil 3-21 Route: l 14:16: IVP, PRN, Alvin 00 Dosing Weight 82.273, kg, PRN Benzodiaze pine Reversal, Initial dose, Start date: 06/28/18 9:16:00 CDT, Duration: 30 day, Stop date: 07/28/18 9:15:00 CDT Naloxone 2019-0 No 0.4 mg, Memori a 3-21 Route: l 14:16: IVP, Alvin 00 Q2MIN, Dosing Weight 82.273, kg, PRN Narcotic Reversal, Start date: 06/28/18 9:16:00 CDT, Duration: 8 doses or times, Stop date: Limited # of times cetirizine No Notes: Memor ia 3-21 (Same As: l 14:00: Zyrtec) cetirizine No Notes: Memor ia 3-21 (Same As: l 14:00: Zyrtec) cetirizine No Notes: Memor ia 3-21 (Same As: l 14:00: Zyrtec) cetirizine No Notes: Memor ia 3-21 (Same As: l 14:00: Zyrtec) cetirizine No Notes: Memor ia 3-21 (Same As: l 14:00: Zyrtec) cetirizine No Notes: Memor ia 3-21 (Same As: l 14:00: Zyrtec) cetirizine No Notes: Memor ia 3-21 (Same As: l 14:00: Zyrtec) cetirizine No Notes: Memor ia 3-21 (Same As: l 14:00: Zyrtec) cetirizine No Notes: Memor ia 3-21 (Same As: l 14:00: Zyrtec) cetirizine No Notes: Memor ia 3-21 (Same As: l 14:00: Zyrtec) cetirizine No Notes: [facility] 3-21 (Same As: l 14:00: Zyrtec) cetirizine No Notes: [facility] 3-21 (Same As: l 14:00: Zyrtec) cetirizine No Notes: [facility] 3-21 (Same As: l 14:00: Zyrtec) cetirizine No Notes: [facility] 3-21 (Same As: l 14:00: Zyrtec) Seth 00 Sodium 2019-0 No Route: IV, [facility] Chloride 3-21 Total l 0.9% IV 13:30: Volume: Seth (ANES) 1000 00 1,000, mL Start date: 06/28/18 8:30:00 CDT, Stop date: 06/28/18 9:30:00 CDT Sodium 2019-0 No Route: IV, [facility] Chloride 3-21 Total l 0.9% IV 13:30: Volume: Seth (ANES) 1000 00 1,000, mL Start date: 06/28/18 8:30:00 CDT, Stop date: 06/28/18 9:30:00 CDT Sodium 2019-0 No Route: IV, [facility] Chloride 3-21 Total l 0.9% IV 13:30: Volume: Alvin (ANES) 1000 00 1,000, mL Start date: 06/28/18 8:30:00 CDT, Stop date: 06/28/18 9:30:00 CDT Sodium 2019-0 No Route: IV, [facility] Chloride 3-21 Total l 0.9% IV 13:30: Volume: Alvin (ANES) 1000 00 1,000, mL Start date: 06/28/18 8:30:00 CDT, Stop date: 06/28/18 9:30:00 CDT Sodium 2019-0 No Route: IV, [facility] Chloride 3-21 Total l 0.9% IV 13:30: Volume: Seht (ANES) 1000 00 1,000, mL Start date: 06/28/18 8:30:00 CDT, Stop date: 06/28/18 9:30:00 CDT Sodium 2019-0 No Route: IV, [facility] Chloride 3-21 Total l 0.9% IV 13:30: Volume: Alvin (ANES) 1000 00 1,000, mL Start date: 06/28/18 8:30:00 CDT, Stop date: 06/28/18 9:30:00 CDT Sodium 2019-0 No Route: IV, [facility] Chloride 3-21 Total l 0.9% IV 13:30: Volume: Alvin (ANES) 1000 00 1,000, mL Start date: 06/28/18 8:30:00 CDT, Stop date: 06/28/18 9:30:00 CDT Sodium 2019-0 No Route: IV, [facility] Chloride 3-21 Total l 0.9% IV 13:30: Volume: Alvin (ANES) 1000 00 1,000, mL Start date: 06/28/18 8:30:00 CDT, Stop date: 06/28/18 9:30:00 CDT Sodium 2019-0 No Route: IV, [facility] Chloride 3-21 Total l 0.9% IV 13:30: Volume: Alvin (ANES) 1000 00 1,000, mL Start date: 06/28/18 8:30:00 CDT, Stop date: 06/28/18 9:30:00 CDT Sodium 2019-0 No Route: IV, [facility] Chloride 3-21 Total l 0.9% IV 13:30: Volume: Seth (ANES) 1000 00 1,000, mL Start date: 06/28/18 8:30:00 CDT, Stop date: 06/28/18 9:30:00 CDT Sodium 2019-0 No Route: IV, [facility] Chloride 3-21 Total l 0.9% IV 13:30: Volume: Seth (ANES) 1000 00 1,000, mL Start date: 06/28/18 8:30:00 CDT, Stop date: 06/28/18 9:30:00 CDT Sodium 2019-0 No Route: IV, [facility] Chloride 3-21 Total l 0.9% IV 13:30: Volume: Alvin (ANES) 1000 00 1,000, mL Start date: 06/28/18 8:30:00 CDT, Stop date: 06/28/18 9:30:00 CDT Sodium 2019-0 No Route: IV, [facility] Chloride 3-21 Total l 0.9% IV 13:30: Volume: Seth (ANES) 1000 00 1,000, mL Start date: 06/28/18 8:30:00 CDT, Stop date: 06/28/18 9:30:00 CDT Sodium 2019-0 No Route: IV, [facility] Chloride 3-21 Total l 0.9% IV 13:30: Volume: Seth (ANES) 1000 00 1,000, mL Start date: 06/28/18 8:30:00 CDT, Stop date: 06/28/18 9:30:00 CDT Levetiracet No Notes: Boo swapnil am 500 MG 3-21 (Same l Oral Tablet 02:00: as:Keppra) Seth [Keppra] Levetiracet No Notes: Boo swapnil am 500 MG 3-21 (Same l Oral Tablet 02:00: as:Keppra) Seth [Keppra] Levetiracet No Notes: Boo swapnil am 500 MG 3-21 (Same l Oral Tablet 02:00: as:Keppra) Seth [Keppra] Levetiracet No Notes: Boo swapnil am 500 MG 3-21 (Same l Oral Tablet 02:00: as:Keppra) Seth [Keppra] Levetiracet No Notes: Boo swapnil am 500 MG 3-21 (Same l Oral Tablet 02:00: as:Keppra) Alvin [Keppra] Levetiracet No Notes: Boo swapnil am 500 MG 3-21 (Same l Oral Tablet 02:00: as:Keppra) Seth [Keppra] Levetiracet No Notes: Boo swapnil am 500 MG 3-21 (Same l Oral Tablet 02:00: as:Keppra) Seth [Keppra] Levetiracet No Notes: Boo swapnil am 500 MG 3-21 (Same l Oral Tablet 02:00: as:Keppra) Seth [Keppra] Levetiracet No Notes: Boo swapnil am 500 MG 3-21 (Same l Oral Tablet 02:00: as:Keppra) Seth [Keppra] 00 Levetiracet 2018- No Notes: Boo swapnil am 500 MG 3-21 (Same l Oral Tablet 02:00: as:Keppra) Seth [Keppra] 00 Levetiracet No Notes: Boo swapnil am 500 MG 3-21 (Same l Oral Tablet 02:00: as:Keppra) Seth [Keppra] 00 Levetiracet No Notes: Boo swapnil am 500 MG 3-21 (Same l Oral Tablet 02:00: as:Keppra) Seth [Keppra] 00 Levetiracet No Notes: Boo swapnil am 500 MG 3-21 (Same l Oral Tablet 02:00: as:Keppra) Alvin [Keppra] 00 Levetiracet No Notes: Boo swapnil am 500 MG 3-21 (Same l Oral Tablet 02:00: as:Keppra) Seth [Keppra] 00 heparin 2019 No Notes: Memoria 3-20 porcine l 21:00: heparin Alvin 00 heparin No Notes: Memoria 3-20 porcine l 21:00: heparin Alvin 00 heparin No Notes: Memoria 3-20 porcine l 21:00: heparin Alvin 00 heparin No Notes: Memoria 3-20 porcine l 21:00: heparin Seth 00 heparin No Notes: Memoria 3-20 porcine l 21:00: heparin Seth 00 heparin No Notes: Memoria 3-20 porcine l 21:00: heparin Alvin 00 heparin No Notes: Memoria 3-20 porcine l 21:00: heparin Seth 00 heparin 2019- No Notes: [facility]oria 3-20 porcine l 21:00: heparin Alvin 00 heparin No Notes: [facility]oria 3-20 porcine l 21:00: heparin Alvin 00 heparin No Notes: Memoria 3-20 porcine l 21:00: heparin Alvin 00 heparin 2019 No Notes: [facility] 3-20 porcine l 21:00: heparin Seth 00 heparin No Notes: Memoria 3-20 porcine l 21:00: heparin Seth 00 heparin No Notes: [facility]oria 3-20 porcine l 21:00: heparin Alvin 00 heparin No Notes: Memoria 3-20 porcine l 21:00: heparin Seth 00 Dexamethaso No Notes: Boo swapnil ne 3-20 Give with l 17:00: food. Seth 00 Dexamethaso No Notes: Boo swapnil ne 3-20 Give with l 17:00: food. Seth 00 Dexamethaso No Notes: Boo swapnil ne 3-20 Give with l 17:00: food. Dexamethaso No Notes: Boo swapnil ne 3-20 Give with l 17:00: food. Dexamethaso No Notes: Boo swapnil ne 3-20 Give with l 17:00: food. Dexamethaso No Notes: Boo swapnil ne 3-20 Give with l 17:00: food. Dexamethaso No Notes: Boo swapnil ne 3-20 Give with l 17:00: food. Dexamethaso No Notes: Boo swapnil ne 3-20 Give with l 17:00: food. Dexamethaso No Notes: Boo swapnil ne 3-20 Give with l 17:00: food. Dexamethaso No Notes: Boo swapnil ne 3-20 Give with l 17:00: food. Dexamethaso No Notes: Boo swapnil ne 3-20 Give with l 17:00: food. Dexamethaso No Notes: Boo swapnil ne 3-20 Give with l 17:00: food. Dexamethaso No Notes: Boo swapnil ne 3-20 Give with l 17:00: food. Dexamethaso No Notes: Boo swapnil ne 3-20 Give with l 17:00: food. Loratadine No Notes: 1 [facility] 3-20 hr before l 16:24: meals (Same as: Claritin) Non-formul ann item Loratadine No Notes: 1 [facility] 3-20 hr before l 16:24: meals (Same as: Claritin) Non-formul ann item Loratadine No Notes: 1 [facility] 3-20 hr before l 16:24: meals (Same as: Claritin) Non-formul ann item Loratadine No Notes: 1 [facility] 3-20 hr before l 16:24: meals Seth 00 (Same as: Claritin) Non-formul ann item Loratadine 2019-0 No Notes: 1 [facility] 3-20 hr before l 16:24: meals Alvin 00 (Same as: Claritin) Non-formul ann item Loratadine 2019-0 No Notes: 1 [facility] 3-20 hr before l 16:24: meals Alvin 00 (Same as: Claritin) Non-formul ann item Loratadine 2019-0 No Notes: 1 [facility] 3-20 hr before l 16:24: meals Alvin 00 (Same as: Claritin) Non-formul ann item Loratadine 2019-0 No Notes: 1 [facility] 3-20 hr before l 16:24: meals Alvin 00 (Same as: Claritin) Non-formul ann item Loratadine 2019-0 No Notes: 1 [facility] 3-20 hr before l 16:24: meals Alvin 00 (Same as: Claritin) Non-formul ann item Loratadine 2019-0 No Notes: 1 [facility] 3-20 hr before l 16:24: meals Alvin 00 (Same as: Claritin) Non-formul ann item Loratadine 2019-0 No Notes: 1 [facility] 3-20 hr before l 16:24: meals Seth 00 (Same as: Claritin) Non-formul ann item Loratadine 2019-0 No Notes: 1 [facility] 3-20 hr before l 16:24: meals Alvin 00 (Same as: Claritin) Non-formul ann item Loratadine 2019-0 No Notes: 1 [facility] 3-20 hr before l 16:24: meals Alvin 00 (Same as: Claritin) Non-formul ann item Loratadine 2019-0 No Notes: 1 [facility] 3-20 hr before l 16:24: meals Alvin 00 (Same as: Claritin) Non-formul ann item cetirizine 2019-0 No Notes: [facility] 3-20 (Same as: l 14:30: Zyrtec) Seth 00 cetirizine 2019-0 No Notes: [facility] 3-20 (Same as: l 14:30: Zyrtec) Seth cetirizine 2019-0 No Notes: [facility] 3-20 (Same as: l 14:30: Zyrtec) cetirizine No Notes: [facility] 3-20 (Same as: l 14:30: Zyrtec) Alvin 00 cetirizine No Notes: [facility] 3-20 (Same as: l 14:30: Zyrtec) cetirizine No Notes: [facility] 3-20 (Same as: l 14:30: Zyrtec) cetirizine No Notes: [facility] 3-20 (Same as: l 14:30: Zyrtec) cetirizine No Notes: [facility] 3-20 (Same as: l 14:30: Zyrtec) cetirizine No Notes: [facility] 3-20 (Same as: l 14:30: Zyrtec) cetirizine No Notes: [facility] 3-20 (Same as: l 14:30: Zyrtec) cetirizine No Notes: [facility] 3-20 (Same as: l 14:30: Zyrtec) cetirizine No Notes: [facility] 3-20 (Same as: l 14:30: Zyrtec) cetirizine No Notes: [facility] 3-20 (Same as: l 14:30: Zyrtec) cetirizine No Notes: [facility] 3-20 (Same as: l 14:30: Zyrtec) Famotidine No Notes: [facility] 3-20 (Same as: l 14:00: Pepcid) Metamucil No Notes: Memori a 3-20 (Same as: l 14:00: Metamucil) Mix in 8 oz liquid with meal. Loratadine No Notes: 1 [facility] 3-20 hr before l 14:00: meals Seth 00 (Same as: Claritin) Non-formul ann item multivitami No Notes: Boo swapnil n 3-20 (Same l 14:00: as:Thera) Alvin WASTE: F/P - Black; E - Municipal Trash Bin Take with food. Folic Acid No Notes: [facility] 3-20 (Same as: l 14:00: Folvite) Seth Thiamine No Notes: [facility] 3-20 (Same As: l 14:00: Vitamin Alvin 00 B1) Famotidine No Notes: [facility] 3-20 (Same as: l 14:00: Pepcid) Seth Metamucil No Notes: Memori a 3-20 (Same as: l 14:00: Metamucil) Alvin 00 Mix in 8 oz liquid with meal. Loratadine No Notes: 1 [facility] 3-20 hr before l 14:00: meals Alvin 00 (Same as: Claritin) Non-formul ann item multivitami No Notes: Boo swapnil n 3-20 (Same l 14:00: as:Thera) Alvin 00 WASTE: F/P - Black; E - Municipal Trash Bin Take with food. Folic Acid No Notes: [facility] 3-20 (Same as: l 14:00: Folvite) Alvin 00 Thiamine No Notes: [facility] 3-20 (Same As: l 14:00: Vitamin Seth 00 B1) Famotidine No Notes: [facility] 3-20 (Same as: l 14:00: Pepcid) Seth Metamucil No Notes: Memori a 3-20 (Same as: l 14:00: Metamucil) Seth 00 Mix in 8 oz liquid with meal. Loratadine No Notes: 1 [facility] 3-20 hr before l 14:00: meals Alvin 00 (Same as: Claritin) Non-formul ann item multivitami No Notes: Boo swapnil n 3-20 (Same l 14:00: as:Thera) Seth WASTE: F/P - Black; E - Municipal Trash Bin Take with food. Folic Acid No Notes: [facility] 3-20 (Same as: l 14:00: Folvite) Alvin Thiamine No Notes: [facility] 3-20 (Same As: l 14:00: Vitamin Alvin 00 B1) Famotidine No Notes: [facility] 3-20 (Same as: l 14:00: Pepcid) Alvin Metamucil No Notes: Memori a 3-20 (Same as: l 14:00: Metamucil) Seth 00 Mix in 8 oz liquid with meal. Loratadine No Notes: 1 [facility] 3-20 hr before l 14:00: meals Seth 00 (Same as: Claritin) Non-formul ann item multivitami No Notes: Boo swapnil n 3-20 (Same l 14:00: as:Thera) Alvin 00 WASTE: F/P - Black; E - Municipal Trash Bin Take with food. Folic Acid No Notes: [facility] 3-20 (Same as: l 14:00: Folvite) Thiamine No Notes: [facility]oria 3-20 (Same As: l 14:00: Vitamin Alvin 00 B1) Famotidine No Notes: [facility] 3-20 (Same as: l 14:00: Pepcid) Metamucil No Notes: Memori a 3-20 (Same as: l 14:00: Metamucil) Alvin 00 Mix in 8 oz liquid with meal. Loratadine No Notes: 1 [facility] 3-20 hr before l 14:00: meals Seth 00 (Same as: Claritin) Non-formul ann item multivitami No Notes: Boo swapnil n 3-20 (Same l 14:00: as:Thera) Seth 00 WASTE: F/P - Black; E - Municipal Trash Bin Take with food. Folic Acid No Notes: [facility] 3-20 (Same as: l 14:00: Folvite) Seth Thiamine No Notes: [facility] 3-20 (Same As: l 14:00: Vitamin Alvin 00 B1) Famotidine No Notes: [facility] 3-20 (Same as: l 14:00: Pepcid) Seth Metamucil No Notes: Memori a 3-20 (Same as: l 14:00: Metamucil) Seth 00 Mix in 8 oz liquid with meal. Loratadine No Notes: 1 [facility] 3-20 hr before l 14:00: meals Seth 00 (Same as: Claritin) Non-formul ann item multivitami No Notes: Boo swapnil n 3-20 (Same l 14:00: as:Thera) Alvin WASTE: F/P - Black; E - Municipal Trash Bin Take with food. Folic Acid No Notes: [facility] 3-20 (Same as: l 14:00: Folvite) Seth Thiamine No Notes: [facility] 3-20 (Same As: l 14:00: Vitamin Seth 00 B1) Famotidine No Notes: [facility] 3-20 (Same as: l 14:00: Pepcid) Alvin Metamucil No Notes: Memori a 3-20 (Same as: l 14:00: Metamucil) Alvin 00 Mix in 8 oz liquid with meal. Loratadine No Notes: 1 [facility] 3-20 hr before l 14:00: meals Alvin 00 (Same as: Claritin) Non-formul ann item multivitami No Notes: Boo swapnil n 3-20 (Same l 14:00: as:Thera) Alvin WASTE: F/P - Black; E - Municipal Trash Bin Take with food. Folic Acid No Notes: [facility] 3-20 (Same as: l 14:00: Folvite) Alvin Thiamine No Notes: [facility]oria 3-20 (Same As: l 14:00: Vitamin Seth 00 B1) Famotidine No Notes: [facility] 3-20 (Same as: l 14:00: Pepcid) Alvin 00 Metamucil No Notes: Memori a 3-20 (Same as: l 14:00: Metamucil) Seth 00 Mix in 8 oz liquid with meal. Loratadine No Notes: 1 [facility] 3-20 hr before l 14:00: meals Alvin 00 (Same as: Claritin) Non-formul ann item multivitami No Notes: Boo swapnil n 3-20 (Same l 14:00: as:Thera) Seth WASTE: F/P - Black; E - Municipal Trash Bin Take with food. Folic Acid No Notes: [facility] 3-20 (Same as: l 14:00: Folvite) Alvin Thiamine No Notes: Memoria 3-20 (Same As: l 14:00: Vitamin Seth 00 B1) Famotidine No Notes: [facility] 3-20 (Same as: l 14:00: Pepcid) Seth Metamucil No Notes: Memori a 3-20 (Same as: l 14:00: Metamucil) Alvin 00 Mix in 8 oz liquid with meal. Loratadine No Notes: 1 [facility] 3-20 hr before l 14:00: meals Seth 00 (Same as: Claritin) Non-formul ann item multivitami No Notes: Boo swapnil n 3-20 (Same l 14:00: as:Thera) Seth WASTE: F/P - Black; E - Municipal Trash Bin Take with food. Folic Acid No Notes: [facility] 3-20 (Same as: l 14:00: Folvite) Alvin Thiamine No Notes: Memoria 3-20 (Same As: l 14:00: Vitamin Seth 00 B1) Famotidine No Notes: [facility] 3-20 (Same as: l 14:00: Pepcid) Seth Metamucil No Notes: Memori a 3-20 (Same as: l 14:00: Metamucil) Alvin 00 Mix in 8 oz liquid with meal. Loratadine No Notes: 1 [facility] 3-20 hr before l 14:00: meals Alvin 00 (Same as: Claritin) Non-formul ann item multivitami No Notes: Boo swapnil n 3-20 (Same l 14:00: as:Thera) Alvin WASTE: F/P - Black; E - Municipal Trash Bin Take with food. Folic Acid No Notes: [facility] 3-20 (Same as: l 14:00: Folvite) Seth Thiamine No Notes: [facility]oria 3-20 (Same As: l 14:00: Vitamin Alvin 00 B1) Famotidine No Notes: [facility] 3-20 (Same as: l 14:00: Pepcid) Alvin Metamucil No Notes: Memori a 3-20 (Same as: l 14:00: Metamucil) Alvin 00 Mix in 8 oz liquid with meal. Loratadine No Notes: 1 [facility] 3-20 hr before l 14:00: meals Alvin 00 (Same as: Claritin) Non-formul ann item multivitami No Notes: Boo swapnil n 3-20 (Same l 14:00: as:Thera) Seth 00 WASTE: F/P - Black; E - Municipal Trash Bin Take with food. Folic Acid No Notes: [facility] ia 3-20 (Same as: l 14:00: Folvite) Alvin Thiamine No Notes: Memoria 3-20 (Same As: l 14:00: Vitamin Seth 00 B1) Famotidine No Notes: [facility] ia 3-20 (Same as: l 14:00: Pepcid) Alvin Metamucil No Notes: Memori a 3-20 (Same as: l 14:00: Metamucil) Seth 00 Mix in 8 oz liquid with meal. Loratadine No Notes: 1 [facility] 3-20 hr before l 14:00: meals Alvin 00 (Same as: Claritin) Non-formul ann item multivitami No Notes: Boo swapnil n 3-20 (Same l 14:00: as:Thera) Alvin 00 WASTE: F/P - Black; E - Municipal Trash Bin Take with food. Folic Acid No Notes: Mem[facility] ia 3-20 (Same as: l 14:00: Folvite) Alvin Thiamine No Notes: Memoria 3-20 (Same As: l 14:00: Vitamin Alvin 00 B1) Famotidine No Notes: Mem[facility] ia 3-20 (Same as: l 14:00: Pepcid) Seth Metamucil No Notes: Memori a 3-20 (Same as: l 14:00: Metamucil) Seth 00 Mix in 8 oz liquid with meal. Loratadine No Notes: 1 [facility] 3-20 hr before l 14:00: meals Alvin 00 (Same as: Claritin) Non-formul ann item multivitami No Notes: Boo swapnil n 3-20 (Same l 14:00: as:Thera) Alvin 00 WASTE: F/P - Black; E - Municipal Trash Bin Take with food. Folic Acid No Notes: Mem[facility] 3-20 (Same as: l 14:00: Folvite) Thiamine No Notes: Memoria 3-20 (Same As: l 14:00: Vitamin B1) Famotidine No Notes: Memor ia 3-20 (Same as: l 14:00: Pepcid) Seth Metamucil No Notes: Memori a 3-20 (Same as: l 14:00: Metamucil) Seth 00 Mix in 8 oz liquid with meal. Loratadine No Notes: 1 [facility] 3-20 hr before l 14:00: meals Seth (Same as: Claritin) Non-formul ann item multivitami [...] 24 hr, Stop date: 06/28/18 0:00:00 CDT methylPREDN 2019-0 No 125 mg, Mem oria ISolone 3-20 Route: l SODium 13:00: IVP, Drug Christiano n SUCCinate 00 form: INJ, Q8H, Dosing Weight 82.273, kg, Start date: 06/27/18 8:00:00 CDT, Duration: 24 hr, Stop date: 06/28/18 0:00:00 CDT methylPREDN 2019-0 No 125 mg, Mem oria ISolone 3-20 Route: l SODium 13:00: IVP, Drug Christiano n SUCCinate 00 form: INJ, Q8H, Dosing Weight 82.273, kg, Start date: 06/27/18 8:00:00 CDT, Duration: 24 hr, Stop date: 06/28/18 0:00:00 CDT methylPREDN 2019-0 No 125 mg, Mem oria ISolone 3-20 Route: l SODium 13:00: IVP, Drug Christiano n SUCCinate 00 form: INJ, Q8H, Dosing Weight 82.273, kg, Start date: 06/27/18 8:00:00 CDT, Duration: 24 hr, Stop date: 06/28/18 0:00:00 CDT methylPREDN 2019-0 No 125 mg, Mem oria ISolone 3-20 Route: l SODium 13:00: IVP, Drug Christiano n SUCCinate 00 form: INJ, Q8H, Dosing Weight 82.273, kg, Start date: 06/27/18 8:00:00 CDT, Duration: 24 hr, Stop date: 06/28/18 0:00:00 CDT methylPREDN 2019-0 No 125 mg, Mem oria ISolone 3-20 Route: l SODium 13:00: IVP, Drug Christiano n SUCCinate 00 form: INJ, Q8H, Dosing Weight 82.273, kg, Start date: 06/27/18 8:00:00 CDT, Duration: 24 hr, Stop date: 06/28/18 0:00:00 CDT methylPREDN 2019-0 No 125 mg, Mem oria ISolone 3-20 Route: l SODium 13:00: IVP, Drug Christiano n SUCCinate 00 form: INJ, Q8H, Dosing Weight 82.273, kg, Start date: 06/27/18 8:00:00 CDT, Duration: 24 hr, Stop date: 06/28/18 0:00:00 CDT methylPREDN 2019-0 No 125 mg, Mem oria ISolone 3-20 Route: l SODium 13:00: IVP, Drug Christiano n SUCCinate 00 form: INJ, Q8H, Dosing Weight 82.273, kg, Start date: 06/27/18 8:00:00 CDT, Duration: 24 hr, Stop date: 06/28/18 0:00:00 CDT methylPREDN 2019-0 No 125 mg, Mem oria ISolone 3-20 Route: l SODium 13:00: IVP, Drug Christiano n SUCCinate 00 form: INJ, Q8H, Dosing Weight 82.273, kg, Start date: 06/27/18 8:00:00 CDT, Duration: 24 hr, Stop date: 06/28/18 0:00:00 CDT methylPREDN 2019-0 No 125 mg, Mem oria ISolone 3-20 Route: l SODium 13:00: IVP, Drug Christiano n SUCCinate 00 form: INJ, Q8H, Dosing Weight 82.273, kg, Start date: 06/27/18 8:00:00 CDT, Duration: 24 hr, Stop date: 06/28/18 0:00:00 CDT methylPREDN 2019-0 No 125 mg, Mem oria ISolone 3-20 Route: l SODium 13:00: IVP, Drug Christiano n SUCCinate 00 form: INJ, Q8H, Dosing Weight 82.273, kg, Start date: 06/27/18 8:00:00 CDT, Duration: 24 hr, Stop date: 06/28/18 0:00:00 CDT methylPREDN 2019-0 No 125 mg, Mem oria ISolone 3-20 Route: l SODium 13:00: IVP, Drug Christiano n SUCCinate 00 form: INJ, Q8H, Dosing Weight 82.273, kg, Start date: 06/27/18 8:00:00 CDT, Duration: 24 hr, Stop date: 06/28/18 0:00:00 CDT methylPREDN 2019-0 No 125 mg, Mem oria ISolone 3-20 Route: l SODium 13:00: IVP, Drug Christiano n SUCCinate 00 form: INJ, Q8H, Dosing Weight 82.273, kg, Start date: 06/27/18 8:00:00 CDT, Duration: 24 hr, Stop date: 06/28/18 0:00:00 CDT methylPREDN 2019 No 125 mg, Mem oria ISolone 3-20 Route: l SODium 13:00: IVP, Drug Christiano n SUCCinate 00 form: INJ, Q8H, Dosing Weight 82.273, kg, Start date: 06/27/18 8:00:00 CDT, Duration: 24 hr, Stop date: 06/28/18 0:00:00 CDT Hydrocortis No Notes: Boo swapnil one 3-20 (Same as: l 12:19: Solu-AUDRA Alvin 00 F) Hydrocortis No Notes: Boo swapnil one 3-20 (Same as: l 12:19: Solu-AUDRA Alvin 00 F) Hydrocortis No Notes: Boo swapnil one 3-20 (Same as: l 12:19: Solu-AUDRA Alvin 00 F) Hydrocortis No Notes: Boo swapnil one 3-20 (Same as: l 12:19: Solu-AUDRA Alvin 00 F) Hydrocortis No Notes: Boo swapnil one 3-20 (Same as: l 12:19: Solu-AUDRA Seth 00 F) Hydrocortis No Notes: Boo swapnil one 3-20 (Same as: l 12:19: Solu-AUDRA Alvin 00 F) Hydrocortis No Notes: Boo swapnil one 3-20 (Same as: l 12:19: Solu-AUDRA Seth 00 F) Hydrocortis No Notes: Boo swapnil one 3-20 (Same as: l 12:19: Solu-AUDRA Alvin 00 F) Hydrocortis 0 No Notes: Boo swapnil one 3-20 (Same as: l 12:19: Solu-AUDRA Alvin 00 F) Hydrocortis No Notes: Boo swapnil one 3-20 (Same as: l 12:19: Solu-AUDRA Seth 00 F) Hydrocortis No Notes: Obo swapnil one 3-20 (Same as: l 12:19: Solu-AUDRA Alvin 00 F) Hydrocortis 2019 No Notes: Boo swapnil one 3-20 (Same as: l 12:19: Solu-AUDRA Alvin 00 F) Hydrocortis No Notes: Boo swapnil one 3-20 (Same as: l 12:19: Solu-AUDRA Alvin 00 F) Hydrocortis No Notes: Boo swapnil one 3-20 (Same as: l 12:19: Solu-AUDRA Alvin 00 F) Benadryl 2019 No Notes: Memoria 3-20 (Same as: l 12:18: Benadryl) Alvin Benadryl No Notes: Memoria 3-20 (Same as: l 12:18: Benadryl) Alvin Benadryl No Notes: Memoria 3-20 (Same as: l 12:18: Benadryl) Alvin Benadryl No Notes: Memoria 3-20 (Same as: l 12:18: Benadryl) Seth Benadryl No Notes: Memoria 3-20 (Same as: l 12:18: Benadryl) Alvin Benadryl No Notes: Memoria 3-20 (Same as: l 12:18: Benadryl) Alvin Benadryl No Notes: Memoria 3-20 (Same as: l 12:18: Benadryl) Alvin Benadryl No Notes: Memoria 3-20 (Same as: l 12:18: Benadryl) Alvin Benadryl No Notes: Memoria 3-20 (Same as: l 12:18: Benadryl) Alvin Benadryl 2019 No Notes: Memoria 3-20 (Same as: l 12:18: Benadryl) Alvin Benadryl No Notes: Memoria 3-20 (Same as: l 12:18: Benadryl) Seth Benadryl No Notes: Memoria 3-20 (Same as: l 12:18: Benadryl) Alvin Benadryl No Notes: Memoria 3-20 (Same as: l 12:18: Benadryl) Alvin Benadryl No Notes: Memoria 3-20 (Same as: l 12:18: Benadryl) Seth Benadryl No Notes: Memoria 3-20 (Same as: l 12:14: Benadryl) Alvin methylPREDN No Notes: Boo swapnil ISolone 3-20 (Same l SODium 12:14: as:Solu-ME Connie nn SUCCinate 00 DROL, A-Methapre d) Benadryl No Notes: Memoria 3-20 (Same as: l 12:14: Benadryl) Seth methylPREDN No Notes: Boo swapnil ISolone 3-20 (Same l SODium 12:14: as:Solu-ME Connie nn SUCCinate 00 DROL, A-Methapre d) Benadryl No Notes: Memoria 3-20 (Same as: l 12:14: Benadryl) Seth methylPREDN No Notes: Boo swapnil ISolone 3-20 (Same l SODium 12:14: as:Solu-ME Connie nn SUCCinate 00 DROL, A-Methapre d) Benadryl No Notes: Memoria 3-20 (Same as: l 12:14: Benadryl) Seth methylPREDN No Notes: Boo swapnil ISolone 3-20 (Same l SODium 12:14: as:Solu-ME Connie nn SUCCinate 00 DROL, A-Methapre d) Benadryl No Notes: Memoria 3-20 (Same as: l 12:14: Benadryl) Seth methylPREDN No Notes: Boo swapnil ISolone 3-20 (Same l SODium 12:14: as:Solu-ME Connie nn SUCCinate 00 DROL, A-Methapre d) Benadryl No Notes: Memoria 3-20 (Same as: l 12:14: Benadryl) Alvin methylPREDN No Notes: Boo swapnil ISolone 3-20 (Same l SODium 12:14: as:Solu-ME Connie nn SUCCinate 00 DROL, A-Methapre d) Benadryl No Notes: Memoria 3-20 (Same as: l 12:14: Benadryl) Alvin 00 methylPREDN No Notes: Boo swapnil ISolone 3-20 (Same l SODium 12:14: as:Solu-ME Connie nn SUCCinate 00 DROL, A-Methapre d) Benadryl No Notes: Memoria 3-20 (Same as: l 12:14: Benadryl) Seth methylPREDN No Notes: Boo swapnil ISolone 3-20 (Same l SODium 12:14: as:Solu-ME Connie nn SUCCinate 00 DROL, A-Methapre d) Benadryl No Notes: Memoria 3-20 (Same as: l 12:14: Benadryl) Alvin methylPREDN No Notes: Boo swapnil ISolone 3-20 (Same l SODium 12:14: as:Solu-ME Connie nn SUCCinate 00 DROL, A-Methapre d) Benadryl No Notes: Memoria 3-20 (Same as: l 12:14: Benadryl) Seth methylPREDN No Notes: Boo swapnil ISolone 3-20 (Same l SODium 12:14: as:Solu-ME Connie nn SUCCinate 00 DROL, A-Methapre d) Benadryl No Notes: Memoria 3-20 (Same as: l 12:14: Benadryl) Alvin 00 methylPREDN No Notes: Boo swapnil ISolone 3-20 (Same l SODium 12:14: as:Solu-ME Connie nn SUCCinate 00 DROL, A-Methapre d) Benadryl No Notes: Memoria 3-20 (Same as: l 12:14: Benadryl) Seth 00 methylPREDN No Notes: Boo swapnil ISolone 3-20 (Same l SODium 12:14: as:Solu-ME Connie nn SUCCinate 00 DROL, A-Methapre d) Benadryl 0 No Notes: Memoria 3-20 (Same as: l 12:14: Benadryl) methylPREDN No Notes: Boo swapnil ISolone 3-20 (Same l SODium 12:14: as:Solu-ME Connie nn SUCCinate 00 DROL, A-Methapre d) Benadryl No Notes: Memoria 3-20 (Same as: l 12:14: Benadryl) methylPREDN No Notes: Boo swapnil ISolone 3-20 (Same l SODium 12:14: as:Solu-ME Connie nn SUCCinate 00 DROL, A-Methapre d) Benadryl 0 No 25 mg, Memoria 3-20 Route: IV, l 12:10: Q8H, Dosing Weight 82.273, kg, PRN Itching, Start date: 06/27/18 7:10:00 CDT, Duration: 30 day, Stop date: 07/27/18 7:09:00 CDT Benadryl 2019-0 No 25 mg, Memoria 3-20 Route: IV, l 12:10: Q8H, Dosing Weight 82.273, kg, PRN Itching, Start date: 06/27/18 7:10:00 CDT, Duration: 30 day, Stop date: 07/27/18 7:09:00 CDT Benadryl 2019-0 No 25 mg, Memoria 3-20 Route: IV, l 12:10: Q8H, Dosing Weight 82.273, kg, PRN Itching, Start date: 06/27/18 7:10:00 CDT, Duration: 30 day, Stop date: 07/27/18 7:09:00 CDT Benadryl 2019-0 No 25 mg, Memoria 3-20 Route: IV, l 12:10: Q8H, Dosing Weight 82.273, kg, PRN Itching, Start date: 06/27/18 7:10:00 CDT, Duration: 30 day, Stop date: 07/27/18 7:09:00 CDT Benadryl 2019-0 No 25 mg, Memoria 3-20 Route: IV, l 12:10: Q8H, Alvin 00 Dosing Weight 82.273, kg, PRN Itching, Start date: 06/27/18 7:10:00 CDT, Duration: 30 day, Stop date: 07/27/18 7:09:00 CDT Benadryl 2019-0 No 25 mg, Memoria 3-20 Route: IV, l 12:10: Q8H, Alvin 00 Dosing Weight 82.273, kg, PRN Itching, Start date: 06/27/18 7:10:00 CDT, Duration: 30 day, Stop date: 07/27/18 7:09:00 CDT Benadryl 2019-0 No 25 mg, Memoria 3-20 Route: IV, l 12:10: Q8H, Alvin 00 Dosing Weight 82.273, kg, PRN Itching, Start date: 06/27/18 7:10:00 CDT, Duration: 30 day, Stop date: 07/27/18 7:09:00 CDT Benadryl 2019-0 No 25 mg, Memoria 3-20 Route: IV, l 12:10: Q8H, Seth 00 Dosing Weight 82.273, kg, PRN Itching, Start date: 06/27/18 7:10:00 CDT, Duration: 30 day, Stop date: 07/27/18 7:09:00 CDT Benadryl 2019-0 No 25 mg, Memoria 3-20 Route: IV, l 12:10: Q8H, Dosing Weight 82.273, kg, PRN Itching, Start date: 06/27/18 7:10:00 CDT, Duration: 30 day, Stop date: 07/27/18 7:09:00 CDT Benadryl 2019-0 No 25 mg, Memoria 3-20 Route: IV, l 12:10: Q8H, Alvin 00 Dosing Weight 82.273, kg, PRN Itching, Start date: 06/27/18 7:10:00 CDT, Duration: 30 day, Stop date: 07/27/18 7:09:00 CDT Benadryl 2019-0 No 25 mg, Memoria 3-20 Route: IV, l 12:10: Q8H, Alvin 00 Dosing Weight 82.273, kg, PRN Itching, Start date: 06/27/18 7:10:00 CDT, Duration: 30 day, Stop date: 07/27/18 7:09:00 CDT Benadryl 2019-0 No 25 mg, Memoria 3-20 Route: IV, l 12:10: Q8H, Alvin 00 Dosing Weight 82.273, kg, PRN Itching, Start date: 06/27/18 7:10:00 CDT, Duration: 30 day, Stop date: 07/27/18 7:09:00 CDT Benadryl 2019-0 No 25 mg, Memoria 3-20 Route: IV, l 12:10: Q8H, Dosing Weight 82.273, kg, PRN Itching, Start date: 06/27/18 7:10:00 CDT, Duration: 30 day, Stop date: 07/27/18 7:09:00 CDT Benadryl 2019-0 No 25 mg, Memoria 3-20 Route: IV, [...] swapnil 3-20 (Same as: l 02:00: Zyloprim) Lopressor No Notes: Memori a 3-20 (Same as: l 02:00: Toprol XL) May split tab, but do not crush. Doxazosin No Notes: Memori a 3-20 (Same as: l 02:00: Cardura) Allopurinol No Notes: Boo swapnil 3-20 (Same as: l 02:00: Zyloprim) Alvin Lopressor No Notes: Memori a 3-20 (Same as: l 02:00: Toprol XL) Alvin 00 May split tab, but do not crush. Doxazosin No Notes: Memori a 3-20 (Same as: l 02:00: Cardura) Seth Allopurinol No Notes: Boo swapnil 3-20 (Same as: l 02:00: Zyloprim) Alvin Lopressor No Notes: Memori a 3-20 (Same as: l 02:00: Toprol XL) Seth May split tab, but do not crush. Doxazosin No Notes: Memori a 3-20 (Same as: l 02:00: Cardura) Seth Allopurinol No Notes: Boo swapnil 3-20 (Same as: l 02:00: Zyloprim) Seth Lopressor No Notes: Memori a 3-20 (Same as: l 02:00: Toprol XL) Seth May split tab, but do not crush. Doxazosin No Notes: Memori a 3-20 (Same as: l 02:00: Cardura) Alvin Allopurinol No Notes: Boo swapnil 3-20 (Same as: l 02:00: Zyloprim) Alvin Lopressor No Notes: Memori a 3-20 (Same as: l 02:00: Toprol XL) Alvin 00 May split tab, but do not crush. Doxazosin No Notes: Memori a 3-20 (Same as: l 02:00: Cardura) Seth Allopurinol No Notes: Boo swapnil 3-20 (Same as: l 02:00: Zyloprim) Alvin Lopressor No Notes: Memori a 3-20 (Same as: l 02:00: Toprol XL) Seth 00 May split tab, but do not crush. Doxazosin No Notes: Memori a 3-20 (Same as: l 02:00: Cardura) Alvin Allopurinol No Notes: Boo swapnil 3-20 (Same as: l 02:00: Zyloprim) Alvin Lopressor No Notes: Memori a 3-20 (Same as: l 02:00: Toprol XL) Seth May split tab, but do not crush. Doxazosin No Notes: Memori a 3-20 (Same as: l 02:00: Cardura) Alvin Allopurinol No Notes: Boo swapnil 3-20 (Same as: l 02:00: Zyloprim) Seth Lopressor No Notes: Memori a 3-20 (Same as: l 02:00: Toprol XL) Alvin May split tab, but do not crush. Doxazosin No Notes: Memori a 3-20 (Same as: l 02:00: Cardura) Seth Allopurinol No Notes: Boo wsapnil 3-20 (Same as: l 02:00: Zyloprim) Alvin Lopressor No Notes: Memori a 3-20 (Same as: l 02:00: Toprol XL) Alvin May split tab, but do not crush. Doxazosin No Notes: Memori a 3-20 (Same as: l 02:00: Cardura) Alvin Allopurinol No Notes: Boo swapnil 3-20 (Same as: l 02:00: Zyloprim) Alvin Lopressor No Notes: Memori a 3-20 (Same as: l 02:00: Toprol XL) Alvin May split tab, but do not crush. Doxazosin No Notes: Memori a 3-20 (Same as: l 02:00: Cardura) Seth Allopurinol No Notes: Boo swapnil 3-20 (Same as: l 02:00: Zyloprim) Seth Lopressor No Notes: Memori a 3-20 (Same as: l 02:00: Toprol XL) Seth May split tab, but do not crush. Doxazosin No Notes: Memori a 3-20 (Same as: l 02:00: Cardura) Seth Allopurinol No Notes: Boo swapnil 3-20 (Same as: l 02:00: Zyloprim) Lopressor No Notes: Memori a 3-20 (Same as: l 02:00: Toprol XL) May split tab, but do not crush. Doxazosin No Notes: Memori a 3-20 (Same as: l 02:00: Cardura) Allopurinol No Notes: Boo swapnil 3-20 (Same as: l 02:00: Zyloprim) Lopressor No Notes: Memori a 3-20 (Same as: l 02:00: Toprol XL) May split tab, but do not crush. Doxazosin No Notes: Memori a 3-20 (Same as: l 02:00: Cardura) Allopurinol No Notes: Boo swapnil 3-20 (Same as: l 02:00: Zyloprim) normal No 1,000 mL, Memori a saline 0.9% 3-20 Rate: 100 l IV 1,000 mL 00:27: ml/hr, Herm fawn 00 Infuse over: 10 hr, Route: IV, Dosing Weight 82.273 kg, Total Volume: 1,000, Start date: 06/26/18 19:27:00 CDT, Duration: 30 day, Stop date: 07/26/18 19:26:00 CDT, 2.04, m2 normal No 1,000 mL, Memori a saline 0.9% 3-20 Rate: 100 l IV 1,000 mL 00:27: ml/hr, Herm fawn 00 Infuse over: 10 hr, Route: IV, Dosing Weight 82.273 kg, Total Volume: 1,000, Start date: 06/26/18 19:27:00 CDT, Duration: 30 day, Stop date: 07/26/18 19:26:00 CDT, 2.04, m2 normal No 1,000 mL, Memori a saline 0.9% 3-20 Rate: 100 l IV 1,000 mL 00:27: ml/hr, Herm fawn 00 Infuse over: 10 hr, Route: IV, Dosing Weight 82.273 kg, Total Volume: 1,000, Start date: 06/26/18 19:27:00 CDT, Duration: 30 day, Stop date: 07/26/18 19:26:00 CDT, 2.04, m2 normal 2019-0 No 1,000 mL, Memori a saline 0.9% 3-20 Rate: 100 l IV 1,000 mL 00:27: ml/hr, Herm fawn 00 Infuse over: 10 hr, Route: IV, Dosing Weight 82.273 kg, Total Volume: 1,000, Start date: 06/26/18 19:27:00 CDT, Duration: 30 day, Stop date: 07/26/18 19:26:00 CDT, 2.04, m2 normal 2019-0 No 1,000 mL, Memori a saline 0.9% 3-20 Rate: 100 l IV 1,000 mL 00:27: ml/hr, Herm fawn 00 Infuse over: 10 hr, Route: IV, Dosing Weight 82.273 kg, Total Volume: 1,000, Start date: 06/26/18 19:27:00 CDT, Duration: 30 day, Stop date: 07/26/18 19:26:00 CDT, 2.04, m2 normal 2019-0 No 1,000 mL, Memori a saline 0.9% 3-20 Rate: 100 l IV 1,000 mL 00:27: ml/hr, Herm fawn 00 Infuse over: 10 hr, Route: IV, Dosing Weight 82.273 kg, Total Volume: 1,000, Start date: 06/26/18 19:27:00 CDT, Duration: 30 day, Stop date: 07/26/18 19:26:00 CDT, 2.04, m2 normal 2019-0 No 1,000 mL, Memori a saline 0.9% 3-20 Rate: 100 l IV 1,000 mL 00:27: ml/hr, Herm fawn 00 Infuse over: 10 hr, Route: IV, Dosing Weight 82.273 kg, Total Volume: 1,000, Start date: 06/26/18 19:27:00 CDT, Duration: 30 day, Stop date: 07/26/18 19:26:00 CDT, 2.04, m2 normal 2019-0 No 1,000 mL, Memori a saline 0.9% 3-20 Rate: 100 l IV 1,000 mL 00:27: ml/hr, Herm fawn 00 Infuse over: 10 hr, Route: IV, Dosing Weight 82.273 kg, Total Volume: 1,000, Start date: 06/26/18 19:27:00 CDT, Duration: 30 day, Stop date: 07/26/18 19:26:00 CDT, 2.04, m2 normal 2019-0 No 1,000 mL, Memori a saline 0.9% 3-20 Rate: 100 l IV 1,000 mL 00:27: ml/hr, Herm fawn 00 Infuse over: 10 hr, Route: IV, Dosing Weight 82.273 kg, Total Volume: 1,000, Start date: 06/26/18 19:27:00 CDT, Duration: 30 day, Stop date: 07/26/18 19:26:00 CDT, 2.04, m2 normal 2019-0 No 1,000 mL, Memori a saline 0.9% 3-20 Rate: 100 l IV 1,000 mL 00:27: ml/hr, Herm fawn 00 Infuse over: 10 hr, Route: IV, Dosing Weight 82.273 kg, Total Volume: 1,000, Start date: 06/26/18 19:27:00 CDT, Duration: 30 day, Stop date: 07/26/18 19:26:00 CDT, 2.04, m2 normal 2019-0 No 1,000 mL, Memori a saline 0.9% 3-20 Rate: 100 l IV 1,000 mL 00:27: ml/hr, Herm fawn 00 Infuse over: 10 hr, Route: IV, Dosing Weight 82.273 kg, Total Volume: 1,000, Start date: 06/26/18 19:27:00 CDT, Duration: 30 day, Stop date: 07/26/18 19:26:00 CDT, 2.04, m2 normal 2019-0 No 1,000 mL, Memori a saline 0.9% 3-20 Rate: 100 l IV 1,000 mL 00:27: ml/hr, Herm fawn 00 Infuse over: 10 hr, Route: IV, Dosing Weight 82.273 kg, Total Volume: 1,000, Start date: 06/26/18 19:27:00 CDT, Duration: 30 day, Stop date: 07/26/18 19:26:00 CDT, 2.04, m2 normal 2019-0 No 1,000 mL, Memori a saline 0.9% 3-20 Rate: 100 l IV 1,000 mL 00:27: ml/hr, Herm fawn 00 Infuse over: 10 hr, Route: IV, Dosing Weight 82.273 kg, Total Volume: 1,000, Start date: 06/26/18 19:27:00 CDT, Duration: 30 day, Stop date: 07/26/18 19:26:00 CDT, 2.04, m2 normal 0 No 1,000 mL, Memori a saline 0.9% 3-20 Rate: 100 l IV 1,000 mL 00:27: ml/hr, Herm fawn 00 Infuse over: 10 hr, Route: IV, Dosing Weight 82.273 kg, Total Volume: 1,000, Start date: 06/26/18 19:27:00 CDT, Duration: 30 day, Stop date: 07/26/18 19:26:00 CDT, 2.04, m2 sirolimus No Notes: Memori a 3-19 (Same as: l 17:30: Rapamune) Seth 00 mycophenola No Notes: Boo swapnil te mofetil 3-19 SEPARATE l 17:30: ANTACIDS Seth 00 from Cellcept by 2 hrs. (Same As: CellCept) Sirolimus No Notes: Memori a 3-19 (Same as: l 17:30: Rapamune) Alvin 00 sirolimus No Notes: Memori a 3-19 (Same as: l 17:30: Rapamune) Alvin 00 mycophenola No Notes: Boo swapnil te mofetil 3-19 SEPARATE l 17:30: ANTACIDS Seth 00 from Cellcept by 2 hrs. (Same As: CellCept) Sirolimus No Notes: Memori a 3-19 (Same as: l 17:30: Rapamune) Seth 00 sirolimus No Notes: Memori a 3-19 (Same as: l 17:30: Rapamune) Seth 00 mycophenola No Notes: Boo swapnil te mofetil 3-19 SEPARATE l 17:30: ANTACIDS Seth 00 from Cellcept by 2 hrs. (Same As: CellCept) Sirolimus [id number] No Notes: Memori a 3-19 (Same as: l 17:30: Rapamune) Seth 00 sirolimus 0 No Notes: Memori a 3-19 (Same as: l 17:30: Rapamune) Seth 00 mycophenola 0 No Notes: Boo swapnil te mofetil 3-19 SEPARATE l 17:30: ANTACIDS Alvin 00 from Cellcept by 2 hrs. (Same As: CellCept) Sirolimus No Notes: Memori a 3-19 (Same as: l 17:30: Rapamune) Seth sirolimus No Notes: Memori a 3-19 (Same as: l 17:30: Rapamune) Seth 00 mycophenola 0 No Notes: Boo swapnil te mofetil 3-19 SEPARATE l 17:30: ANTACIDS Seth 00 from Cellcept by 2 hrs. (Same As: CellCept) Sirolimus No Notes: Memori a 3-19 (Same as: l 17:30: Rapamune) Seth 00 sirolimus No Notes: Memori a 3-19 (Same as: l 17:30: Rapamune) Alvin 00 mycophenola 0 No Notes: Boo swapnil te mofetil 3-19 SEPARATE l 17:30: ANTACIDS Alvin 00 from Cellcept by 2 hrs. (Same As: CellCept) Sirolimus No Notes: Memori a 3-19 (Same as: l 17:30: Rapamune) Seth 00 sirolimus 0 No Notes: Memori a 3-19 (Same as: l 17:30: Rapamune) Seth 00 mycophenola 0 No Notes: Boo swapnil te mofetil 3-19 SEPARATE l 17:30: ANTACIDS Seth 00 from Cellcept by 2 hrs. (Same As: CellCept) Sirolimus 0 No Notes: Memori a 3-19 (Same as: l 17:30: Rapamune) Alvin 00 sirolimus 0 No Notes: Memori a 3-19 (Same as: l 17:30: Rapamune) Alvin 00 mycophenola 0 No Notes: Boo swpanil te mofetil 3-19 SEPARATE l 17:30: ANTACIDS Seth 00 from Cellcept by 2 hrs. (Same As: CellCept) Sirolimus No Notes: Memori a 3-19 (Same as: l 17:30: Rapamune) Seth sirolimus No Notes: Memori a 3-19 (Same as: l 17:30: Rapamune) Alvin 00 mycophenola No Notes: Boo swapnil te mofetil 3-19 SEPARATE l 17:30: ANTACIDS Alvin 00 from Cellcept by 2 hrs. (Same As: CellCept) Sirolimus No Notes: Memori a 3-19 (Same as: l 17:30: Rapamune) Seth sirolimus No Notes: Memori a 3-19 (Same as: l 17:30: Rapamune) Seth mycophenola No Notes: Boo swapnil te mofetil 3-19 SEPARATE l 17:30: ANTACIDS Alvin 00 from Cellcept by 2 hrs. (Same As: CellCept) Sirolimus No Notes: Memori a 3-19 (Same as: l 17:30: Rapamune) Seth sirolimus No Notes: Memori a 3-19 (Same as: l 17:30: Rapamune) Seth 00 mycophenola No Notes: Boo swapnil te mofetil 3-19 SEPARATE l 17:30: ANTACIDS Seth 00 from Cellcept by 2 hrs. (Same As: CellCept) Sirolimus No Notes: Memori a 3-19 (Same as: l 17:30: Rapamune) Seth 00 sirolimus No Notes: Memori a 3-19 (Same as: l 17:30: Rapamune) Seth 00 mycophenola 0 No Notes: Boo swapnil te mofetil 3-19 SEPARATE l 17:30: ANTACIDS Seth 00 from Cellcept by 2 hrs. (Same As: CellCept) Sirolimus No Notes: Memori a 3-19 (Same as: l 17:30: Rapamune) Seth sirolimus No Notes: Memori a 3-19 (Same as: l 17:30: Rapamune) Alvin 00 mycophenola No Notes: Boo swapnil te mofetil 3-19 SEPARATE l 17:30: ANTACIDS Alvin 00 from Cellcept by 2 hrs. (Same As: CellCept) Sirolimus No Notes: Memori a 3-19 (Same as: l 17:30: Rapamune) Seth sirolimus No Notes: Memori a 3-19 (Same as: l 17:30: Rapamune) Alvin 00 mycophenola No Notes: Boo swapnil te mofetil 3-19 SEPARATE l 17:30: ANTACIDS Seth 00 from Cellcept by 2 hrs. (Same As: CellCept) Sirolimus No Notes: Memori a 3-19 (Same as: l 17:30: Rapamune) Alvin 00 sirolimus 1 Yes 1 mg = 1 Me moria mg oral 3-19 tab, PO, l tablet 17:06: QAM, 0 Alvin 00 Refill(s) sirolimus 1 Yes 1 mg = 1 Me moria mg oral 3-19 tab, PO, l tablet 17:06: QAM, 0 Seth 00 Refill(s) sirolimus 1 Yes 1 mg = 1 Me moria mg oral 3-19 tab, PO, l tablet 17:06: QAM, 0 Seht 00 Refill(s) sirolimus 1 Yes 1 mg = 1 Me moria mg oral 3-19 tab, PO, l tablet 17:06: QAM, 0 Seth 00 Refill(s) sirolimus 1 Yes 1 mg = 1 Me moria mg oral 3-19 tab, PO, l tablet 17:06: QAM, 0 Seth 00 Refill(s) sirolimus 1 Yes 1 mg = 1 Me moria mg oral 3-19 tab, PO, l tablet 17:06: QAM, 0 Alvin 00 Refill(s) sirolimus 1 Yes 1 mg = 1 Me moria mg oral 3-19 tab, PO, l tablet 17:06: QAM, 0 Alvin 00 Refill(s) sirolimus 1 Yes 1 mg = 1 Me moria mg oral 3-19 tab, PO, l tablet 17:06: QAM, 0 Alvin 00 Refill(s) sirolimus 1 Yes 1 mg = 1 Me moria mg oral 3-19 tab, PO, l tablet 17:06: QAM, 0 Seth 00 Refill(s) sirolimus 1 Yes 1 mg = 1 Me moria mg oral 3-19 tab, PO, l tablet 17:06: QAM, 0 Seth 00 Refill(s) sirolimus 1 Yes 1 mg = 1 Me moria mg oral 3-19 tab, PO, l tablet 17:06: QAM, 0 Alvin 00 Refill(s) sirolimus 1 Yes 1 mg = 1 Me moria mg oral 3-19 tab, PO, l tablet 17:06: QAM, 0 Seth 00 Refill(s) sirolimus 1 Yes 1 mg = 1 Me moria mg oral 3-19 tab, PO, l tablet 17:06: QAM, 0 Seth 00 Refill(s) sirolimus 1 Yes 1 mg = 1 [...] tab, PO, l tablet, 15:55: BID, 0 Seth extended 00 Refill(s) release Folic Acid Yes 0.4 mg = 1 M emoria 0.4 MG Oral 3-19 tab, PO, l Tablet 15:55: Daily, # Alvin 00 100 tab, 0 Refill(s) Vitamin D3 Yes 5,000 Memori a 5000 intl 3-19 IntlUnit = l units oral 15:55: 1 cap, PO, H ermann capsule 00 Daily, # 30 cap, 1 Refill(s) sirolimus 1 No 2 mg = 2 Me moria mg oral 3-19 tab, PO, l tablet 15:55: Daily, 0 Alvin 00 Refill(s) PreserVisio Yes PO, Daily, Memoria n AREDS 2 3-19 0 l 15:55: Refill(s) Alvin 00 allopurinol Yes 100 mg = 1 Memoria 100 mg oral 3-19 tab, PO, l tablet 15:55: BID, 0 Alvin 00 Refill(s) doxazosin 2 Yes 2 mg = 1 Me moria mg oral 3-19 tab, PO, l tablet 15:55: Bedtime, 0 Connie nn 00 Refill(s) Fish Oil Yes 1,200 mg = Mem oria 1200 mg 19 1 cap, PO, l oral 15:55: TID, 0 Seth capsule 00 Refill(s) mycophenola Yes 250 mg = 1 Memoria te mofetil 3-19 cap, PO, l 250 mg oral 15:55: BID, 0 Herm fawn capsule 00 Refill(s) metoprolol Yes 50 mg = 1 Me moria 50 mg oral 3-19 tab, PO, l tablet, 15:55: BID, 0 Alvin extended 00 Refill(s) release Folic Acid Yes 0.4 mg = 1 M emoria 0.4 MG Oral 3-19 tab, PO, l Tablet 15:55: Daily, # Alvin 00 100 tab, 0 Refill(s) Vitamin D3 Yes 5,000 Memori a 5000 intl - IntlUnit = l units oral 15:55: 1 cap, PO, H ermann capsule 00 Daily, # 30 cap, 1 Refill(s) sirolimus 1 No 2 mg = 2 Me moria mg oral 3-19 tab, PO, l tablet 15:55: Daily, 0 Alvin 00 Refill(s) PreserVisio Yes PO, Daily, Memoria n AREDS 2 3-19 0 l 15:55: Refill(s) Seth 00 allopurinol Yes 100 mg = 1 Memoria 100 mg oral 3-19 tab, PO, l tablet 15:55: BID, 0 Seth 00 Refill(s) doxazosin 2 Yes 2 mg = 1 Me moria mg oral 3-19 tab, PO, l tablet 15:55: Bedtime, 0 Connie nn 00 Refill(s) Fish Oil Yes 1,200 mg = Mem oria 1200 mg 3-19 1 cap, PO, l oral 15:55: TID, 0 Alvin capsule 00 Refill(s) mycophenola Yes 250 mg = 1 Memoria te mofetil 3-19 cap, PO, l 250 mg oral 15:55: BID, 0 Herm fawn capsule 00 Refill(s) metoprolol Yes 50 mg = 1 Me moria 50 mg oral 3-19 tab, PO, l tablet, 15:55: BID, 0 Alvin extended 00 Refill(s) release Folic Acid Yes 0.4 mg = 1 M emoria 0.4 MG Oral 3-19 tab, PO, l Tablet 15:55: Daily, # Seth 00 100 tab, 0 Refill(s) Vitamin D3 Yes 5,000 Memori a 5000 intl 3-19 IntlUnit = l units oral 15:55: 1 cap, PO, H ermann capsule 00 Daily, # 30 cap, 1 Refill(s) sirolimus 1 No 2 mg = 2 Me moria mg oral 3-19 tab, PO, l tablet 15:55: Daily, 0 Alvin 00 Refill(s) PreserVisio Yes PO, Daily, Memoria n AREDS 2 3-19 0 l 15:55: Refill(s) Alvin 00 allopurinol Yes 100 mg = 1 Memoria 100 mg oral 3-19 tab, PO, l tablet 15:55: BID, 0 Alvin 00 Refill(s) doxazosin 2 Yes 2 mg = 1 Me moria mg oral 3-19 tab, PO, l tablet 15:55: Bedtime, 0 Connie nn 00 Refill(s) Fish Oil Yes 1,200 mg = Mem oria 1200 mg 3-19 1 cap, PO, l oral 15:55: TID, 0 Seth capsule 00 Refill(s) mycophenola Yes 250 mg = 1 Memoria te mofetil 3-19 cap, PO, l 250 mg oral 15:55: BID, 0 Herm fawn capsule 00 Refill(s) metoprolol 2019-0 Yes 50 mg = 1 Me moria 50 mg oral 3-19 tab, PO, l tablet, 15:55: BID, 0 Alvin extended 00 Refill(s) release Folic Acid Yes 0.4 mg = 1 M emoria 0.4 MG Oral 3-19 tab, PO, l Tablet 15:55: Daily, # Alvin 00 100 tab, 0 Refill(s) Vitamin D3 2018- Yes 5,000 Memori a 5000 intl 3-19 IntlUnit = l units oral 15:55: 1 cap, PO, H ermann capsule 00 Daily, # 30 cap, 1 Refill(s) sirolimus 1 No 2 mg = 2 Me moria mg oral 3-19 tab, PO, l tablet 15:55: Daily, 0 Seth 00 Refill(s) PreserVisio 2018-0 Yes PO, Daily, Memoria n AREDS 2 3-19 0 l 15:55: Refill(s) Seth 00 allopurinol Yes 100 mg = 1 Memoria 100 mg oral 3-19 tab, PO, l tablet 15:55: BID, 0 Alvin 00 Refill(s) doxazosin 2 Yes 2 mg = 1 Me moria mg oral 3-19 tab, PO, l tablet 15:55: Bedtime, 0 Connie nn 00 Refill(s) Fish Oil Yes 1,200 mg = Mem oria 1200 mg 3-19 1 cap, PO, l oral 15:55: TID, 0 Seth capsule 00 Refill(s) mycophenola Yes 250 mg = 1 Memoria te mofetil 3-19 cap, PO, l 250 mg oral 15:55: BID, 0 Herm fawn capsule 00 Refill(s) metoprolol Yes 50 mg = 1 Me moria 50 mg oral 3-19 tab, PO, l tablet, 15:55: BID, 0 Seth extended 00 Refill(s) release Folic Acid Yes 0.4 mg = 1 M emoria 0.4 MG Oral 3-19 tab, PO, l Tablet 15:55: Daily, # Seth 00 100 tab, 0 Refill(s) Vitamin D3 Yes 5,000 Memori a 5000 intl 3-19 IntlUnit = l units oral 15:55: 1 cap, PO, H ermann capsule 00 Daily, # 30 cap, 1 Refill(s) sirolimus 1 No 2 mg = 2 Me moria mg oral 3-19 tab, PO, l tablet 15:55: Daily, 0 Alvin 00 Refill(s) PreserVisio Yes PO, Daily, Memoria n AREDS 2 3-19 0 l 15:55: Refill(s) Seth 00 allopurinol Yes 100 mg = 1 Memoria 100 mg oral 3-19 tab, PO, l tablet 15:55: BID, 0 Alvin 00 Refill(s) doxazosin 2 Yes 2 mg = 1 Me moria mg oral 3-19 tab, PO, l tablet 15:55: Bedtime, 0 Connie nn 00 Refill(s) Fish Oil Yes 1,200 mg = Mem oria 1200 mg -19 1 cap, PO, l oral 15:55: TID, 0 Seth capsule 00 Refill(s) mycophenola Yes 250 mg = 1 Memoria te mofetil 3-19 cap, PO, l 250 mg oral 15:55: BID, 0 Herm fawn capsule 00 Refill(s) metoprolol Yes 50 mg = 1 Me moria 50 mg oral 3-19 tab, PO, l tablet, 15:55: BID, 0 Alvin extended 00 Refill(s) release Folic Acid Yes 0.4 mg = 1 M emoria 0.4 MG Oral 3-19 tab, PO, l Tablet 15:55: Daily, # Seth 00 100 tab, 0 Refill(s) Vitamin D3 Yes 5,000 Memori a 5000 intl 3-19 IntlUnit = l units oral 15:55: 1 cap, PO, H ermann capsule 00 Daily, # 30 cap, 1 Refill(s) sirolimus 1 No 2 mg = 2 Me moria mg oral 3-19 tab, PO, l tablet 15:55: Daily, 0 Alvin 00 Refill(s) PreserVisio Yes PO, Daily, Memoria n AREDS 2 3-19 0 l 15:55: Refill(s) Alvin 00 allopurinol 2019-0 Yes 100 mg = 1 Memoria 100 mg oral 3-19 tab, PO, l tablet 15:55: BID, 0 Seth 00 Refill(s) doxazosin 2 Yes 2 mg = 1 Me moria mg oral 3-19 tab, PO, l tablet 15:55: Bedtime, 0 Connie nn 00 Refill(s) Fish Oil Yes 1,200 mg = Mem oria 1200 mg 3-19 1 cap, PO, l oral 15:55: TID, 0 Seth capsule 00 Refill(s) mycophenola Yes 250 mg = 1 Memoria te mofetil 3-19 cap, PO, l 250 mg oral 15:55: BID, 0 Herm fawn capsule 00 Refill(s) metoprolol Yes 50 mg = 1 Me moria 50 mg oral 3-19 tab, PO, l tablet, 15:55: BID, 0 Seth extended 00 Refill(s) release Folic Acid Yes 0.4 mg = 1 M emoria 0.4 MG Oral 3-19 tab, PO, l Tablet 15:55: Daily, # Seth 00 100 tab, 0 Refill(s) Vitamin D3 Yes 5,000 Memori a 5000 intl -19 IntlUnit = l units oral 15:55: 1 cap, PO, H ermann capsule 00 Daily, # 30 cap, 1 Refill(s) sirolimus 1 No 2 mg = 2 Me moria mg oral 3-19 tab, PO, l tablet 15:55: Daily, 0 Alvin 00 Refill(s) PreserVisio Yes PO, Daily, Memoria n AREDS 2 -19 0 l 15:55: Refill(s) Alvin 00 allopurinol Yes 100 mg = 1 Memoria 100 mg oral 3-19 tab, PO, l tablet 15:55: BID, 0 Seth 00 Refill(s) doxazosin 2 Yes 2 mg = 1 Me moria mg oral 3-19 tab, PO, l tablet 15:55: Bedtime, 0 Connie nn 00 Refill(s) Fish Oil Yes 1,200 mg = Mem oria 1200 mg 3-19 1 cap, PO, l oral 15:55: TID, 0 Alvin capsule 00 Refill(s) mycophenola Yes 250 mg = 1 Memoria te mofetil 3-19 cap, PO, l 250 mg oral 15:55: BID, 0 Herm fawn capsule 00 Refill(s) metoprolol Yes 50 mg = 1 Me moria 50 mg oral 3-19 tab, PO, l tablet, 15:55: BID, 0 Alvin extended 00 Refill(s) release Folic Acid Yes 0.4 mg = 1 M emoria 0.4 MG Oral 3-19 tab, PO, l Tablet 15:55: Daily, # Seth 00 100 tab, 0 Refill(s) Vitamin D3 Yes 5,000 Memori a 5000 intl 3-19 IntlUnit = l units oral 15:55: 1 cap, PO, H ermann capsule 00 Daily, # 30 cap, 1 Refill(s) sirolimus 1 No 2 mg = 2 Me moria mg oral 3-19 tab, PO, l tablet 15:55: Daily, 0 Alvin 00 Refill(s) PreserVisio 0 Yes PO, Daily, Memoria n AREDS 2 -19 0 l 15:55: Refill(s) Alvin 00 allopurinol Yes 100 mg = 1 Memoria 100 mg oral 3-19 tab, PO, l tablet 15:55: BID, 0 Seth 00 Refill(s) doxazosin 2 Yes 2 mg = 1 Me moria mg oral 3-19 tab, PO, l tablet 15:55: Bedtime, 0 Connie nn 00 Refill(s) Fish Oil Yes 1,200 mg = Mem oria 1200 mg 3-19 1 cap, PO, l oral 15:55: TID, 0 Seth capsule 00 Refill(s) mycophenola Yes 250 mg = 1 Memoria te mofetil 3-19 cap, PO, l 250 mg oral 15:55: BID, 0 Herm fawn capsule 00 Refill(s) metoprolol Yes 50 mg = 1 Me moria 50 mg oral 3-19 tab, PO, l tablet, 15:55: BID, 0 Seth extended 00 Refill(s) release Folic Acid Yes 0.4 mg = 1 M emoria 0.4 MG Oral 3-19 tab, PO, l Tablet 15:55: Daily, # Alvin 00 100 tab, 0 Refill(s) Vitamin D3 Yes 5,000 Memori a 5000 intl 3-19 IntlUnit = l units oral 15:55: 1 cap, PO, H ermann capsule 00 Daily, # 30 cap, 1 Refill(s) sirolimus 1 No 2 mg = 2 Me moria mg oral 3-19 tab, PO, l tablet 15:55: Daily, 0 Seth 00 Refill(s) PreserVisio Yes PO, Daily, Memoria n AREDS 2 -19 0 l 15:55: Refill(s) Alvin 00 allopurinol Yes 100 mg = 1 Memoria 100 mg oral 3-19 tab, PO, l tablet 15:55: BID, 0 Seth 00 Refill(s) doxazosin 2 Yes 2 mg = 1 Me moria mg oral 3-19 tab, PO, l tablet 15:55: Bedtime, 0 Connie nn 00 Refill(s) Fish Oil Yes 1,200 mg = Mem oria 1200 mg 3-19 1 cap, PO, l oral 15:55: TID, 0 Alvin capsule 00 Refill(s) mycophenola Yes 250 mg = 1 Memoria te mofetil 3-19 cap, PO, l 250 mg oral 15:55: BID, 0 Herm fawn capsule 00 Refill(s) metoprolol Yes 50 mg = 1 Me moria 50 mg oral 3-19 tab, PO, l tablet, 15:55: BID, 0 Seth extended 00 Refill(s) release Folic Acid Yes 0.4 mg = 1 M emoria 0.4 MG Oral 3-19 tab, PO, l Tablet 15:55: Daily, # Alvin 00 100 tab, 0 Refill(s) Vitamin D3 Yes 5,000 Memori a 5000 intl 3-19 IntlUnit = l units oral 15:55: 1 cap, PO, H ermann capsule 00 Daily, # 30 cap, 1 Refill(s) sirolimus 1 No 2 mg = 2 Me moria mg oral 3-19 tab, PO, l tablet 15:55: Daily, 0 Alvin 00 Refill(s) PreserVisio Yes PO, Daily, Memoria n AREDS 2 -19 0 l 15:55: Refill(s) Alvin 00 allopurinol Yes 100 mg = 1 Memoria 100 mg oral 3-19 tab, PO, l tablet 15:55: BID, 0 Seth 00 Refill(s) doxazosin 2 Yes 2 mg = 1 Me moria mg oral 3-19 tab, PO, l tablet 15:55: Bedtime, 0 Connie nn 00 Refill(s) Fish Oil Yes 1,200 mg = Mem oria 1200 mg 06-26 1 cap, PO, l oral 15:55: TID, 0 Alvin capsule 00 Refill(s) mycophenola Yes 250 mg = 1 Memoria te mofetil 3-19 cap, PO, l 250 mg oral 15:55: BID, 0 Herm fawn capsule 00 Refill(s) metoprolol Yes 50 mg = 1 Me moria 50 mg oral 3-19 tab, PO, l tablet, 15:55: BID, 0 Alvin extended 00 Refill(s) release Folic Acid Yes 0.4 mg = 1 M emoria 0.4 MG Oral 3-19 tab, PO, l Tablet 15:55: Daily, # Alvin 00 100 tab, 0 Refill(s) Vitamin D3 Yes 5,000 Memori a 5000 intl - IntlUnit = l units oral 15:55: 1 cap, PO, H ermann capsule 00 Daily, # 30 cap, 1 Refill(s) sirolimus 1 No 2 mg = 2 Me moria mg oral 3-19 tab, PO, l tablet 15:55: Daily, 0 Seth 00 Refill(s) PreserVisio Yes PO, Daily, Memoria n AREDS 2 -19 0 l 15:55: Refill(s) Seth 00 allopurinol Yes 100 mg = 1 Memoria 100 mg oral 3-19 tab, PO, l tablet 15:55: BID, 0 Alvin 00 Refill(s) doxazosin 2 Yes 2 mg = 1 Me moria mg oral 3-19 tab, PO, l tablet 15:55: Bedtime, 0 Connie nn 00 Refill(s) Fish Oil Yes 1,200 mg = Mem oria 1200 mg 3-19 1 cap, PO, l oral 15:55: TID, 0 Alvin capsule 00 Refill(s) mycophenola Yes 250 mg = 1 Memoria te mofetil 3-19 cap, PO, l 250 mg oral 15:55: BID, 0 Herm fawn capsule 00 Refill(s) metoprolol Yes 50 mg = 1 Me moria 50 mg oral 3-19 tab, PO, l tablet, 15:55: BID, 0 Alvin extended 00 Refill(s) release Folic Acid Yes 0.4 mg = 1 M emoria 0.4 MG Oral 3-19 tab, PO, l Tablet 15:55: Daily, # Alvin 00 100 tab, 0 Refill(s) Vitamin D3 Yes 5,000 Memori a 5000 intl 3- IntlUnit = l units oral 15:55: 1 cap, PO, H ermann capsule 00 Daily, # 30 cap, 1 Refill(s) sirolimus 1 No 2 mg = 2 Me moria mg oral 3-19 tab, PO, l tablet 15:55: Daily, 0 Seth 00 Refill(s) PreserVisio 0 Yes PO, Daily, Memoria n AREDS 2 -19 0 l 15:55: Refill(s) Alvin 00 allopurinol Yes 100 mg = 1 Memoria 100 mg oral 3-19 tab, PO, l tablet 15:55: BID, 0 Alvin 00 Refill(s) doxazosin 2 Yes 2 mg = 1 Me moria mg oral 3-19 tab, PO, l tablet 15:55: Bedtime, 0 Connie nn 00 Refill(s) Fish Oil Yes 1,200 mg = Mem oria 1200 mg 3-19 1 cap, PO, l oral 15:55: TID, 0 Alvin capsule 00 Refill(s) mycophenola Yes 250 mg = 1 Memoria te mofetil 3-19 cap, PO, l 250 mg oral 15:55: BID, 0 Herm fawn capsule 00 Refill(s) metoprolol Yes 50 mg = 1 Me moria 50 mg oral 3-19 tab, PO, l tablet, 15:55: BID, 0 Alvin extended 00 Refill(s) release Folic Acid Yes 0.4 mg = 1 M emoria 0.4 MG Oral 3-19 tab, PO, l Tablet 15:55: Daily, # Seth 00 100 tab, 0 Refill(s) Vitamin D3 Yes 5,000 Memori a 5000 intl 3-19 IntlUnit = l units oral 15:55: 1 cap, PO, H ermann capsule 00 Daily, # 30 cap, 1 Refill(s) sirolimus 1 No 2 mg = 2 Me moria mg oral 3-19 tab, PO, l tablet 15:55: Daily, 0 Alvin 00 Refill(s) PreserVisio Yes PO, Daily, Memoria n AREDS 2 3-19 0 l 15:55: Refill(s) Seth 00 allopurinol Yes 100 mg = 1 Memoria 100 mg oral 3-19 tab, PO, l tablet 15:55: BID, 0 Seth 00 Refill(s) doxazosin 2 Yes 2 mg = 1 Me moria mg oral 3-19 tab, PO, l tablet 15:55: Bedtime, 0 Connie nn 00 Refill(s) Fish Oil Yes 1,200 mg = Mem oria 1200 mg 3-19 1 cap, PO, l oral 15:55: TID, 0 Seth capsule 00 Refill(s) mycophenola Yes 250 mg = 1 Memoria te mofetil 3-19 cap, PO, l 250 mg oral 15:55: BID, 0 Herm fawn capsule 00 Refill(s) metoprolol Yes 50 mg = 1 Me moria 50 mg oral 3-19 tab, PO, l tablet, 15:55: BID, 0 Seth extended 00 Refill(s) release Folic Acid Yes 0.4 mg = 1 M emoria 0.4 MG Oral 3-19 tab, PO, l Tablet 15:55: Daily, # Seth 00 100 tab, 0 Refill(s) Vitamin D3 Yes 5,000 Memori a 5000 intl 3-19 IntlUnit = l units oral 15:55: 1 cap, PO, H ermann capsule 00 Daily, # 30 cap, 1 Refill(s) sirolimus 1 No 2 mg = 2 Me moria mg oral 3-19 tab, PO, l tablet 15:55: Daily, 0 Seth 00 Refill(s) PreserVisio Yes PO, Daily, Memoria n AREDS 2 06-26 0 l 15:55: Refill(s) Alvin 00 allopurinol Yes 100 mg = 1 Memoria 100 mg oral 3-19 tab, PO, l tablet 15:55: BID, 0 Seth 00 Refill(s) doxazosin 2 Yes 2 mg = 1 Me moria mg oral 3-19 tab, PO, l tablet 15:55: Bedtime, 0 Connie nn 00 Refill(s) Fish Oil Yes 1,200 mg = Mem oria 1200 mg 19 1 cap, PO, l oral 15:55: TID, 0 Alvin capsule 00 Refill(s) Levetiracet No Notes: Boo swapnil am -19 Same as l 14:00: Keppra Mix Seth 00 with 100 mL NS, LR or D5W MEDICATION WASTE Product Size: 500 mg Product Wasted: ___ mg Saline No Notes: Memoria Flush 0.9% - (Same as: l 14:00: BD Alvin 00 Posiflush) Docusate No Notes: Memoria Sodium 100 -19 (Same as: l MG Oral 14:00: Colace) Alvin Capsule 00 (Do Not Crush) sennosides, No Notes: Boo swapnil CARE HOME -19 (Same as: l 14:00: Senokot) Seth 00 Famotidine No Notes: Memor ia 3-19 (Same as: l 14:00: Pepcid) Alvin 00 Can be dilute in 5-10cc NS IVP: Slow IV push over at least 2 minutes. pantoprazol No Notes: Boo swapnil e 3-19 Tablet l 14:00: should not Seth 00 be chewed or crushed. (Same as: Protonix) Levetiracet No Notes: Boo swapnil am 3-19 Same as l 14:00: Keppra Mix Alvin 00 with 100 mL NS, LR or D5W MEDICATION WASTE Product Size: 500 mg Product Wasted: ___ mg Saline No Notes: Memoria Flush 0.9% 3-19 (Same as: l 14:00: BD Seth 00 Posiflush) Docusate No Notes: Memoria Sodium 100 3-19 (Same as: l MG Oral 14:00: Colace) Alvin Capsule 00 (Do Not Crush) sennosides, No Notes: Boo swapnil CARE HOME 3-19 (Same as: l 14:00: Senokot) Alvin 00 Famotidine No Notes: Memor ia 3-19 (Same as: l 14:00: Pepcid) Alvin 00 Can be dilute in 5-10cc NS IVP: Slow IV push over at least 2 minutes. pantoprazol No Notes: Boo swapnil e 3-19 Tablet l 14:00: should not Alvin 00 be chewed or crushed. (Same as: Protonix) Levetiracet No Notes: Boo swapnil am 3-19 Same as l 14:00: Keppra Mix Alvin 00 with 100 mL NS, LR or D5W MEDICATION WASTE Product Size: 500 mg Product Wasted: ___ mg Saline No Notes: Memoria Flush 0.9% 3-19 (Same as: l 14:00: BD Seth 00 Posiflush) Docusate No Notes: Memoria Sodium 100 3-19 (Same as: l MG Oral 14:00: Colace) Alvin Capsule 00 (Do Not Crush) sennosides, No Notes: Boo swapnil CARE HOME 3-19 (Same as: l 14:00: Senokot) Alvin 00 Famotidine No Notes: Memor ia 3-19 (Same as: l 14:00: Pepcid) Alvin 00 Can be dilute in 5-10cc NS IVP: Slow IV push over at least 2 minutes. pantoprazol No Notes: Boo swapnil e 3-19 Tablet l 14:00: should not Alvin 00 be chewed or crushed. (Same as: Protonix) Levetiracet No Notes: Boo swapnil am 3-19 Same as l 14:00: Keppra Mix Seth 00 with 100 mL NS, LR or D5W MEDICATION WASTE Product Size: 500 mg Product Wasted: ___ mg Saline No Notes: Memoria Flush 0.9% 3-19 (Same as: l 14:00: BD Seth 00 Posiflush) Docusate No Notes: Memoria Sodium 100 3-19 (Same as: l MG Oral 14:00: Colace) Alvin Capsule 00 (Do Not Crush) sennosides, No Notes: Boo swapnil CARE HOME 3-19 (Same as: l 14:00: Senokot) Seth 00 Famotidine No Notes: Memor ia 3-19 (Same as: l 14:00: Pepcid) Seth 00 Can be dilute in 5-10cc NS IVP: Slow IV push over at least 2 minutes. pantoprazol No Notes: Boo swapnil e 3-19 Tablet l 14:00: should not Seth 00 be chewed or crushed. (Same as: Protonix) Levetiracet No Notes: Boo swapnil am 3-19 Same as l 14:00: Keppra Mix Seth 00 with 100 mL NS, LR or D5W MEDICATION WASTE Product Size: 500 mg Product Wasted: ___ mg Saline No Notes: Memoria Flush 0.9% 3-19 (Same as: l 14:00: BD Alvin 00 Posiflush) Docusate No Notes: Memoria Sodium 100 3-19 (Same as: l MG Oral 14:00: Colace) Alvin Capsule 00 (Do Not Crush) sennosides, No Notes: Boo swapnil CARE HOME 3-19 (Same as: l 14:00: Senokot) Seth 00 Famotidine No Notes: Memor ia 3-19 (Same as: l 14:00: Pepcid) Alvin 00 Can be dilute in 5-10cc NS IVP: Slow IV push over at least 2 minutes. pantoprazol No Notes: Boo swapnil e 3-19 Tablet l 14:00: should not Alvin 00 be chewed or crushed. (Same as: Protonix) Levetiracet No Notes: Boo swapnli am 3-19 Same as l 14:00: Keppra Mix Seth 00 with 100 mL NS, LR or D5W MEDICATION WASTE Product Size: 500 mg Product Wasted: ___ mg Saline No Notes: Memoria Flush 0.9% 3-19 (Same as: l 14:00: BD Seth 00 Posiflush) Docusate No Notes: Memoria Sodium 100 3-19 (Same as: l MG Oral 14:00: Colace) Seth Capsule 00 (Do Not Crush) sennosides, No Notes: Boo swapnil CARE HOME 3-19 (Same as: l 14:00: Senokot) Alvin 00 Famotidine No Notes: Memor ia 3-19 (Same as: l 14:00: Pepcid) Seth 00 Can be dilute in 5-10cc NS IVP: Slow IV push over at least 2 minutes. pantoprazol No Notes: Boo swapnil e 3-19 Tablet l 14:00: should not Seth 00 be chewed or crushed. (Same as: Protonix) Levetiracet No Notes: Boo swapnil am 3-19 Same as l 14:00: Keppra Mix Seth 00 with 100 mL NS, LR or D5W MEDICATION WASTE Product Size: 500 mg Product Wasted: ___ mg Saline No Notes: Memoria Flush 0.9% 3-19 (Same as: l 14:00: BD Alvin 00 Posiflush) Docusate No Notes: Memoria Sodium 100 3-19 (Same as: l MG Oral 14:00: Colace) Seth Capsule 00 (Do Not Crush) sennosides, No Notes: Boo swapnil CARE HOME 3-19 (Same as: l 14:00: Senokot) Seth 00 Famotidine No Notes: Memor ia 3-19 (Same as: l 14:00: Pepcid) Alvin 00 Can be dilute in 5-10cc NS IVP: Slow IV push over at least 2 minutes. pantoprazol No Notes: Boo swapnil e 3-19 Tablet l 14:00: should not Alvin 00 be chewed or crushed. (Same as: Protonix) Levetiracet No Notes: Boo swapnil am 3-19 Same as l 14:00: Keppra Mix Alvin 00 with 100 mL NS, LR or D5W MEDICATION WASTE Product Size: 500 mg Product Wasted: ___ mg Saline No Notes: Memoria Flush 0.9% 3-19 (Same as: l 14:00: BD Alvin 00 Posiflush) Docusate No Notes: Memoria Sodium 100 3-19 (Same as: l MG Oral 14:00: Colace) Alvin Capsule 00 (Do Not Crush) sennosides, No Notes: Boo swapnil CARE HOME 3-19 (Same as: l 14:00: Senokot) Alvin 00 Famotidine No Notes: Memor ia 3-19 (Same as: l 14:00: Pepcid) Alvin 00 Can be dilute in 5-10cc NS IVP: Slow IV push over at least 2 minutes. pantoprazol No Notes: Boo swapnil e 3-19 Tablet l 14:00: should not Alvin 00 be chewed or crushed. (Same as: Protonix) Levetiracet No Notes: Boo swapnil am 3-19 Same as l 14:00: Keppra Mix Alvin 00 with 100 mL NS, LR or D5W MEDICATION WASTE Product Size: 500 mg Product Wasted: ___ mg Saline No Notes: Memoria Flush 0.9% 3-19 (Same as: l 14:00: BD Seth 00 Posiflush) Docusate No Notes: Memoria Sodium 100 3-19 (Same as: l MG Oral 14:00: Colace) Seth Capsule 00 (Do Not Crush) sennosides, No Notes: Boo swapnil CARE HOME 3-19 (Same as: l 14:00: Senokot) Seth 00 Famotidine No Notes: Memor ia 3-19 (Same as: l 14:00: Pepcid) Alvin 00 Can be dilute in 5-10cc NS IVP: Slow IV push over at least 2 minutes. pantoprazol No Notes: Boo swapnil e 3-19 Tablet l 14:00: should not Alvin 00 be chewed or crushed. (Same as: Protonix) Levetiracet No Notes: Boo swapnil am 3-19 Same as l 14:00: Keppra Mix Alvin 00 with 100 mL NS, LR or D5W MEDICATION WASTE Product Size: 500 mg Product Wasted: ___ mg Saline No Notes: Memoria Flush 0.9% 3-19 (Same as: l 14:00: BD Seth 00 Posiflush) Docusate No Notes: Memoria Sodium 100 3-19 (Same as: l MG Oral 14:00: Colace) Seth Capsule 00 (Do Not Crush) sennosides, No Notes: Boo swapnil CARE HOME 3-19 (Same as: l 14:00: Senokot) Alvin 00 Famotidine No Notes: Memor ia 3-19 (Same as: l 14:00: Pepcid) Alvin 00 Can be dilute in 5-10cc NS IVP: Slow IV push over at least 2 minutes. pantoprazol No Notes: Boo swapnil e 3-19 Tablet l 14:00: should not Alvin 00 be chewed or crushed. (Same as: Protonix) Levetiracet No Notes: Boo swapnil am 3-19 Same as l 14:00: Keppra Mix Seth 00 with 100 mL NS, LR or D5W MEDICATION WASTE Product Size: 500 mg Product Wasted: ___ mg Saline No Notes: Memoria Flush 0.9% 3-19 (Same as: l 14:00: BD Alvin 00 Posiflush) Docusate No Notes: Memoria Sodium 100 3-19 (Same as: l MG Oral 14:00: Colace) Seth Capsule 00 (Do Not Crush) sennosides, No Notes: Boo swapnil CARE HOME 3-19 (Same as: l 14:00: Senokot) Alvin 00 Famotidine No Notes: Memor ia 3-19 (Same as: l 14:00: Pepcid) Alvin 00 Can be dilute in 5-10cc NS IVP: Slow IV push over at least 2 minutes. pantoprazol No Notes: Boo swapnil e 3-19 Tablet l 14:00: should not Alvin 00 be chewed or crushed. (Same as: Protonix) Levetiracet No Notes: Boo swapnil am 3-19 Same as l 14:00: Keppra Mix Seth 00 with 100 mL NS, LR or D5W MEDICATION WASTE Product Size: 500 mg Product Wasted: ___ mg Saline No Notes: Memoria Flush 0.9% 3-19 (Same as: l 14:00: BD Seth 00 Posiflush) Docusate No Notes: Memoria Sodium 100 3-19 (Same as: l MG Oral 14:00: Colace) Alvin Capsule 00 (Do Not Crush) sennosides, No Notes: Boo swapnil CARE HOME 3-19 (Same as: l 14:00: Senokot) Seth 00 Famotidine No Notes: Memor ia 3-19 (Same as: l 14:00: Pepcid) Alvin 00 Can be dilute in 5-10cc NS IVP: Slow IV push over at least 2 minutes. pantoprazol No Notes: Boo swapnil e 3-19 Tablet l 14:00: should not Alvin 00 be chewed or crushed. (Same as: Protonix) Levetiracet No Notes: Boo swapnil am 3-19 Same as l 14:00: Keppra Mix Seth 00 with 100 mL NS, LR or D5W MEDICATION WASTE Product Size: 500 mg Product Wasted: ___ mg Saline No Notes: Memoria Flush 0.9% 3-19 (Same as: l 14:00: BD Seth 00 Posiflush) Docusate No Notes: Memoria Sodium 100 3-19 (Same as: l MG Oral 14:00: Colace) Seth Capsule 00 (Do Not Crush) sennosides, No Notes: Boo swapnil CARE HOME 3-19 (Same as: l 14:00: Senokot) Alvin 00 Famotidine No Notes: Memor ia 3-19 (Same as: l 14:00: Pepcid) Alvin 00 Can be dilute in 5-10cc NS IVP: Slow IV push over at least 2 minutes. pantoprazol No Notes: Boo swapnil e 3-19 Tablet l 14:00: should not Alvin 00 be chewed or crushed. (Same as: Protonix) Levetiracet No Notes: Boo swapnil am 3-19 Same as l 14:00: Keppra Mix Seth 00 with 100 mL NS, LR or D5W MEDICATION WASTE Product Size: 500 mg Product Wasted: ___ mg Saline No Notes: Memoria Flush 0.9% 3-19 (Same as: l 14:00: BD Alvin 00 Posiflush) Docusate No Notes: Memoria Sodium 100 3-19 (Same as: l MG Oral 14:00: Colace) Alvin Capsule 00 (Do Not Crush) sennosides, No Notes: Boo swapnil CARE HOME 3-19 (Same as: l 14:00: Senokot) Seth 00 Famotidine No Notes: Memor ia 3-19 (Same as: l 14:00: Pepcid) Seth 00 Can be dilute in 5-10cc NS IVP: Slow IV push over at least 2 minutes. pantoprazol No Notes: Boo swapnil e 3-19 Tablet l 14:00: should not Alvin 00 be chewed or crushed. (Same as: Protonix) Tylenol No Notes: Do Memor ia 3-19 not exceed l 13:19: 4 gm/day. Seth 00 (Same as: Tylenol) Tylenol No Notes: Do Memor ia 3-19 not exceed l 13:19: 4 gm/day. Alvin 00 (Same as: Tylenol) Tylenol No Notes: Do Memor ia 3-19 not exceed l 13:19: 4 gm/day. (Same as: Tylenol) Tylenol 0 No Notes: Do Memor ia 3-19 not exceed l 13:19: 4 gm/day. (Same as: Tylenol) Tylenol No Notes: Do Memor ia 3-19 not exceed l 13:19: 4 gm/day. (Same as: Tylenol) Tylenol No Notes: Do Memor ia 3-19 not exceed l 13:19: 4 gm/day. (Same as: Tylenol) Tylenol No Notes: Do Memor ia 3-19 not exceed l 13:19: 4 gm/day. (Same as: Tylenol) Tylenol No Notes: Do Memor ia 3-19 not exceed l 13:19: 4 gm/day. (Same as: Tylenol) Tylenol No Notes: Do Memor ia 3-19 not exceed l 13:19: 4 gm/day. (Same as: Tylenol) Tylenol No Notes: Do Memor ia 3-19 not exceed l 13:19: 4 gm/day. (Same as: Tylenol) Tylenol No Notes: Do Memor ia 3-19 not exceed l 13:19: 4 gm/day. (Same as: Tylenol) Tylenol No Notes: Do Memor ia 3-19 not exceed l 13:19: 4 gm/day. (Same as: Tylenol) Tylenol No Notes: Do Memor ia 3-19 not exceed l 13:19: 4 gm/day. (Same as: Tylenol) Tylenol No Notes: Do Memor ia 3-19 not exceed l 13:19: 4 gm/day. (Same as: Tylenol) Morphine No Notes: Memoria 3-19 (Same l 04:56: as:MORPhin Seth 00 e Sulfate) Insulin 0 No 60 units) Boo swapnil regular 3-19 WASTE: F/P l 04:56: - Black; E Alvin 00 - Municipal Trash Bin Stable for 28 days at room temperatur e Expires in days from ____Date Saline No Notes: Memoria Flush 0.9% 3-19 (Same as: l 04:56: BD Alvin 00 Posiflush) Bisacodyl No Notes: Memori a 3-19 (Same As: l 04:56: Dulcolax, Alvin 00 Bisco-Lax) Labetalol No 10 mg, 2 Boo swapnil 3-19 mL, Route: l 04:56: IVP, Drug Alvin 00 form: INJ, Q15Min, Dosing Weight 82.273, kg, PRN Hypertensi on, Start date: 06/25/18 23:56:00 CDT, Duration: 3 doses or times, Stop date: Limited # of times Ondansetron No Notes: Boo swapnil 3-19 (Same as: l 04:56: Zofran) Seth 00 MEDICATION WASTE Product Size: 4 mg Product Wasted: ___ mg Morphine No Notes: Memoria 3-19 (Same l 04:56: as:MORPhin e Sulfate) Insulin No 60 units) Boo swapnil regular -19 WASTE: F/P l 04:56: - Black; E Alvin 00 - Municipal Trash Bin Stable for 28 days at room temperatur e Expires in days from ____Date Saline No Notes: Memoria Flush 0.9% 3-19 (Same as: l 04:56: BD Seth Posiflush) Bisacodyl No Notes: Memori a 3-19 (Same As: l 04:56: Dulcolax, Seth 00 Bisco-Lax) Labetalol No 10 mg, 2 Boo swapnil 3-19 mL, Route: l 04:56: IVP, Drug Seth 00 form: INJ, Q15Min, Dosing Weight 82.273, kg, PRN Hypertensi on, Start date: 06/25/18 23:56:00 CDT, Duration: 3 doses or times, Stop date: Limited # of times Ondansetron 2018- No Notes: Boo swapnil 3-19 (Same as: l 04:56: Rubén) Seth MEDICATION WASTE Product Size: 4 mg Product Wasted: ___ mg Morphine 2018- No Notes: Memoria 3-19 (Same l 04:56: as:MORPhin e Sulfate) Insulin No 60 units) Boo swapnil regular 3-19 WASTE: F/P l 04:56: - Black; E Seth 00 - Municipal Trash Bin Stable for 28 days at room temperatur e Expires in days from ____Date Saline No Notes: Memoria Flush 0.9% 06-26 (Same as: l 04:56: BD Posiflush) Bisacodyl No Notes: Memori a 3-19 (Same As: l 04:56: Dulcolax, Alvin 00 Bisco-Lax) Labetalol No 10 mg, 2 Boo swapnil 3-19 mL, Route: l 04:56: IVP, Drug form: INJ, Q15Min, Dosing Weight 82.273, kg, PRN Hypertensi on, Start date: 06/25/18 23:56:00 CDT, Duration: 3 doses or times, Stop date: Limited # of times Ondansetron No Notes: Boo swapnil 3-19 (Same as: l 04:56: Rubén) Seth MEDICATION WASTE Product Size: 4 mg Product Wasted: ___ mg Morphine 2018- No Notes: Memoria 3-19 (Same l 04:56: as:MORPhin Alvin 00 e Sulfate) Insulin 0 No 60 units) Boo swapnil regular 3-19 WASTE: F/P l 04:56: - Black; E Alvin 00 - Municipal Trash Bin Stable for 28 days at room temperatur e Expires in days from ____Date Saline No Notes: Memoria Flush 0.9% 3-19 (Same as: l 04:56: BD Alvin Posiflush) Bisacodyl No Notes: Memori a 3-19 (Same As: l 04:56: Dulcolax, Seth Bisco-Lax) Labetalol No 10 mg, 2 Boo swapnil 3-19 mL, Route: l 04:56: IVP, Drug Seth 00 form: INJ, Q15Min, Dosing Weight 82.273, kg, PRN Hypertensi on, Start date: 06/25/18 23:56:00 CDT, Duration: 3 doses or times, Stop date: Limited # of times Ondansetron No Notes: Boo swapnil 3-19 (Same as: l 04:56: Yolettefran) Seth MEDICATION WASTE Product Size: 4 mg Product Wasted: ___ mg Morphine No Notes: Memoria 3-19 (Same l 04:56: as:MORPhin Seth 00 e Sulfate) Insulin No 60 units) Boo swapnil regular 3-19 WASTE: F/P l 04:56: - Black; E Seth 00 - Municipal Trash Bin Stable for 28 days at room temperatur e Expires in days from ____Date Saline No Notes: Memoria Flush 0.9% 3-19 (Same as: l 04:56: BD Seth 00 Posiflush) Bisacodyl No Notes: Memori a 3-19 (Same As: l 04:56: Dulcolax, Alvin 00 Bisco-Lax) Labetalol No 10 mg, 2 Boo swapnil 3-19 mL, Route: l 04:56: IVP, Drug Seth 00 form: INJ, Q15Min, Dosing Weight 82.273, kg, PRN Hypertensi on, Start date: 06/25/18 23:56:00 CDT, Duration: 3 doses or times, Stop date: Limited # of times Ondansetron No Notes: Boo swapnil 3-19 (Same as: l 04:56: Zofran) Alvin 00 MEDICATION WASTE Product Size: 4 mg Product Wasted: ___ mg Morphine No Notes: Memoria 3-19 (Same l 04:56: as:MORPhin e Sulfate) Insulin No 60 units) Boo swapnil regular 3-19 WASTE: F/P l 04:56: - Black; E Alvin 00 - Municipal Trash Bin Stable for 28 days at room temperatur e Expires in days from ____Date Saline No Notes: Memoria Flush 0.9% 3-19 (Same as: l 04:56: BD Alvin 00 Posiflush) Bisacodyl No Notes: Memori a 3-19 (Same As: l 04:56: Dulcolax Seth 00 Bisco-Lax) Labetalol No 10 mg, 2 Boo swapnil 3-19 mL, Route: l 04:56: IVP, Drug form: INJ, Q15Min, Dosing Weight 82.273, kg, PRN Hypertensi on, Start date: 06/25/18 23:56:00 CDT, Duration: 3 doses or times, Stop date: Limited # of times Ondansetron No Notes: Boo swapnil 3-19 (Same as: l 04:56: Zofran) MEDICATION WASTE Product Size: 4 mg Product Wasted: ___ mg Morphine No Notes: Memoria 3-19 (Same l 04:56: as:MORPhin Seth 00 e Sulfate) Insulin No 60 units) Boo swapnil regular -19 WASTE: F/P l 04:56: - Black; E Alvin 00 - Municipal Trash Bin Stable for 28 days at room temperatur e Expires in days from ____Date Saline No Notes: Memoria Flush 0.9% 3-19 (Same as: l 04:56: BD Alvin 00 Posiflush) Bisacodyl No Notes: Memori a 3-19 (Same As: l 04:56: Dulcolax, Seth 00 Bisco-Lax) Labetalol No 10 mg, 2 Boo swapnil 3-19 mL, Route: l 04:56: IVP, Drug Alvin 00 form: INJ, Q15Min, Dosing Weight 82.273, kg, PRN Hypertensi on, Start date: 06/25/18 23:56:00 CDT, Duration: 3 doses or times, Stop date: Limited # of times Ondansetron No Notes: Boo swapnil 3-19 (Same as: l 04:56: Zofran) Seth 00 MEDICATION WASTE Product Size: 4 mg Product Wasted: ___ mg Morphine No Notes: Memoria 3-19 (Same l 04:56: as:MORPhin Alvin 00 e Sulfate) Insulin No 60 units) Boo swapnil regular -19 WASTE: F/P l 04:56: - Black; E - Municipal Trash Bin Stable for 28 days at room temperatur e Expires in days from ____Date Saline No Notes: Memoria Flush 0.9% -19 (Same as: l 04:56: BD Posiflush) Bisacodyl No Notes: Memori a 3-19 (Same As: l 04:56: Dulcolax, Alvin 00 Bisco-Lax) Labetalol No 10 mg, 2 Boo swapnil 3-19 mL, Route: l 04:56: IVP, Drug Alvin 00 form: INJ, Q15Min, Dosing Weight 82.273, kg, PRN Hypertensi on, Start date: 06/25/18 23:56:00 CDT, Duration: 3 doses or times, Stop date: Limited # of times Ondansetron No Notes: Boo swapnil 3-19 (Same as: l 04:56: Zofran) Seth 00 MEDICATION WASTE Product Size: 4 mg Product Wasted: ___ mg Morphine No Notes: Memoria 3-19 (Same l 04:56: as:MORPhin Alvin 00 e Sulfate) Insulin No 60 units) Boo swapnil regular 3-19 WASTE: F/P l 04:56: - Black; E Seth 00 - Municipal Trash Bin Stable for 28 days at room temperatur e Expires in days from ____Date Saline No Notes: Memoria Flush 0.9% 3-19 (Same as: l 04:56: BD Alvin 00 Posiflush) Bisacodyl No Notes: Memori a 3-19 (Same As: l 04:56: Dulcolax, Alvin 00 Bisco-Lax) Labetalol No 10 mg, 2 Boo swapnil 3-19 mL, Route: l 04:56: IVP, Drug Seth 00 form: INJ, Q15Min, Dosing Weight 82.273, kg, PRN Hypertensi on, Start date: 06/25/18 23:56:00 CDT, Duration: 3 doses or times, Stop date: Limited # of times Ondansetron No Notes: Boo swapnil 3-19 (Same as: l 04:56: Zofran) Alvin 00 MEDICATION WASTE Product Size: 4 mg Product Wasted: ___ mg Morphine No Notes: Memoria 3-19 (Same l 04:56: as:MORPhin Alvin 00 e Sulfate) Insulin No 60 units) Boo swapnil regular 3-19 WASTE: F/P l 04:56: - Black; E Seth - Municipal Trash Bin Stable for 28 days at room temperatur e Expires in days from ____Date Saline No Notes: Memoria Flush 0.9% 3-19 (Same as: l 04:56: BD Seth 00 Posiflush) Bisacodyl No Notes: Memori a 3-19 (Same As: l 04:56: Dulcolax, Alvin 00 Bisco-Lax) Labetalol No 10 mg, 2 Boo swapnil 3-19 mL, Route: l 04:56: IVP, Drug Alvin 00 form: INJ, Q15Min, Dosing Weight 82.273, kg, PRN Hypertensi on, Start date: 06/25/18 23:56:00 CDT, Duration: 3 doses or times, Stop date: Limited # of times Ondansetron 2018- No Notes: Boo swapnil 3-19 (Same as: l 04:56: Zofran) Alvin 00 MEDICATION WASTE Product Size: 4 mg Product Wasted: ___ mg Morphine No Notes: Memoria 3-19 (Same l 04:56: as:MORPhin Seth 00 e Sulfate) Insulin No 60 units) Boo swapnil regular -19 WASTE: F/P l 04:56: - Black; E Seth - Municipal Trash Bin Stable for 28 days at room temperatur e Expires in days from ____Date Saline No Notes: Memoria Flush 0.9% - (Same as: l 04:56: BD Seth 00 Posiflush) Bisacodyl No Notes: Memori a 3-19 (Same As: l 04:56: Dulcolax, Alvin 00 Bisco-Lax) Labetalol No 10 mg, 2 Boo swapnil 3-19 mL, Route: l 04:56: IVP, Drug form: INJ, Q15Min, Dosing Weight 82.273, kg, PRN Hypertensi on, Start date: 06/25/18 23:56:00 CDT, Duration: 3 doses or times, Stop date: Limited # of times Ondansetron No Notes: Boo swapnil 3-19 (Same as: l 04:56: Zofran) Alvin 00 MEDICATION WASTE Product Size: 4 mg Product Wasted: ___ mg Morphine 2018- No Notes: Memoria 3-19 (Same l 04:56: as:MORPhin Seth 00 e Sulfate) Insulin 2018-0 No 60 units) Boo swapnil regular 3-19 WASTE: F/P l 04:56: - Black; E Seth 00 - Municipal Trash Bin Stable for 28 days at room temperatur e Expires in days from ____Date Saline 2018- No Notes: Memoria Flush 0.9% 3-19 (Same as: l 04:56: BD Seth Posiflush) Bisacodyl No Notes: Memori a 3-19 (Same As: l 04:56: Dulcolax, Alvin 00 Bisco-Lax) Labetalol No 10 mg, 2 Boo swapnil 3-19 mL, Route: l 04:56: IVP, Drug Seth form: INJ, Q15Min, Dosing Weight 82.273, kg, PRN Hypertensi on, Start date: 06/25/18 23:56:00 CDT, Duration: 3 doses or times, Stop date: Limited # of times Ondansetron No Notes: Boo swapnil 3-19 (Same as: l 04:56: Zofran) MEDICATION WASTE Product Size: 4 mg Product Wasted: ___ mg Morphine No Notes: Memoria 3-19 (Same l 04:56: as:MORPhin Alvin 00 e Sulfate) Insulin No 60 units) Boo swapnil regular 3-19 WASTE: F/P l 04:56: - Black; E Alvin 00 - Municipal Trash Bin Stable for 28 days at room temperatur e Expires in days from ____Date Saline No Notes: Memoria Flush 0.9% 3-19 (Same as: l 04:56: BD Seth Posiflush) Bisacodyl No Notes: Memori a 3-19 (Same As: l 04:56: Dulcolax, Alvin 00 Bisco-Lax) Labetalol No 10 mg, 2 Boo swapnil 3-19 mL, Route: l 04:56: IVP, Drug Alvin 00 form: INJ, Q15Min, Dosing Weight 82.273, kg, PRN Hypertensi on, Start date: 06/25/18 23:56:00 CDT, Duration: 3 doses or times, Stop date: Limited # of times Ondansetron No Notes: Boo swapnil 3-19 (Same as: l 04:56: Zofran) MEDICATION WASTE Product Size: 4 mg Product Wasted: ___ mg Morphine No Notes: Memoria 3-19 (Same l 04:56: as:MORPhin e Sulfate) Insulin 2019 No 60 units) Boo swapnil regular 3-19 WASTE: F/P l 04:56: - Black; E - Municipal Trash Bin Stable for 28 days at room temperatur e Expires in days from ____Date Saline No Notes: Memoria Flush 0.9% -19 (Same as: l 04:56: BD Posiflush) Bisacodyl No Notes: Memori a 3-19 (Same As: l 04:56: Dulcolax, Bisco-Lax) Labetalol No 10 mg, 2 Boo swapnil 3-19 mL, Route: l 04:56: IVP, Drug form: INJ, Q15Min, Dosing Weight 82.273, kg, PRN Hypertensi on, Start date: 06/25/18 23:56:00 CDT, Duration: 3 doses or times, Stop date: Limited # of times Ondansetron No Notes: Boo swapnil 3-19 (Same as: l 04:56: Zofran) MEDICATION WASTE Product Size: 4 mg Product Wasted: ___ mg normal No 1,000 mL, Memori a saline 0.9% 3-19 Rate: 75 l IV 1,000 mL 04:55: ml/hr, Herm fanw Infuse over: 13.3 hr, Route: IV, Dosing Weight 82.273 kg, Total Volume: 1,000, Start date: 06/25/18 23:55:00 CDT, Duration: 30 day, Stop date: 07/25/18 23:54:00 CDT, 2.04, m2 normal 2019 No 1,000 mL, Memori a saline 0.9% 3-19 Rate: 75 l IV 1,000 mL 04:55: ml/hr, Herm fawn 00 Infuse over: 13.3 hr, Route: IV, Dosing Weight 82.273 kg, Total Volume: 1,000, Start date: 06/25/18 23:55:00 CDT, Duration: 30 day, Stop date: 07/25/18 23:54:00 CDT, 2.04, m2 normal 2019-0 No 1,000 mL, Memori a saline 0.9% 3-19 Rate: 75 l IV 1,000 mL 04:55: ml/hr, Herm fawn 00 Infuse over: 13.3 hr, Route: IV, Dosing Weight 82.273 kg, Total Volume: 1,000, Start date: 06/25/18 23:55:00 CDT, Duration: 30 day, Stop date: 07/25/18 23:54:00 CDT, 2.04, m2 normal 2019-0 No 1,000 mL, Memori a saline 0.9% 3-19 Rate: 75 l IV 1,000 mL 04:55: ml/hr, Herm fawn 00 Infuse over: 13.3 hr, Route: IV, Dosing Weight 82.273 kg, Total Volume: 1,000, Start date: 06/25/18 23:55:00 CDT, Duration: 30 day, Stop date: 07/25/18 23:54:00 CDT, 2.04, m2 normal 2019-0 No 1,000 mL, Memori a saline 0.9% 3-19 Rate: 75 l IV 1,000 mL 04:55: ml/hr, Herm fawn 00 Infuse over: 13.3 hr, Route: IV, Dosing Weight 82.273 kg, Total Volume: 1,000, Start date: 06/25/18 23:55:00 CDT, Duration: 30 day, Stop date: 07/25/18 23:54:00 CDT, 2.04, m2 normal 2019-0 No 1,000 mL, Memori a saline 0.9% 3-19 Rate: 75 l IV 1,000 mL 04:55: ml/hr, Herm fawn 00 Infuse over: 13.3 hr, Route: IV, Dosing Weight 82.273 kg, Total Volume: 1,000, Start date: 06/25/18 23:55:00 CDT, Duration: 30 day, Stop date: 07/25/18 23:54:00 CDT, 2.04, m2 normal 2019-0 No 1,000 mL, Memori a saline 0.9% 3-19 Rate: 75 l IV 1,000 mL 04:55: ml/hr, Herm fawn 00 Infuse over: 13.3 hr, Route: IV, Dosing Weight 82.273 kg, Total Volume: 1,000, Start date: 06/25/18 23:55:00 CDT, Duration: 30 day, Stop date: 07/25/18 23:54:00 CDT, 2.04, m2 normal 2019-0 No 1,000 mL, Memori a saline 0.9% 3-19 Rate: 75 l IV 1,000 mL 04:55: ml/hr, Herm fawn 00 Infuse over: 13.3 hr, Route: IV, Dosing Weight 82.273 kg, Total Volume: 1,000, Start date: 06/25/18 23:55:00 CDT, Duration: 30 day, Stop date: 07/25/18 23:54:00 CDT, 2.04, m2 normal 2019-0 No 1,000 mL, Memori a saline 0.9% 3-19 Rate: 75 l IV 1,000 mL 04:55: ml/hr, Herm fawn 00 Infuse over: 13.3 hr, Route: IV, Dosing Weight 82.273 kg, Total Volume: 1,000, Start date: 06/25/18 23:55:00 CDT, Duration: 30 day, Stop date: 07/25/18 23:54:00 CDT, 2.04, m2 normal 2019-0 No 1,000 mL, Memori a saline 0.9% 3-19 Rate: 75 l IV 1,000 mL 04:55: ml/hr, Herm fawn 00 Infuse over: 13.3 hr, Route: IV, Dosing Weight 82.273 kg, Total Volume: 1,000, Start date: 06/25/18 23:55:00 CDT, Duration: 30 day, Stop date: 07/25/18 23:54:00 CDT, 2.04, m2 normal 2019-0 No 1,000 mL, Memori a saline 0.9% 3-19 Rate: 75 l IV 1,000 mL 04:55: ml/hr, Herm fawn 00 Infuse over: 13.3 hr, Route: IV, Dosing Weight 82.273 kg, Total Volume: 1,000, Start date: 06/25/18 23:55:00 CDT, Duration: 30 day, Stop date: 07/25/18 23:54:00 CDT, 2.04, m2 normal 2019-0 No 1,000 mL, Memori a saline 0.9% 3-19 Rate: 75 l IV 1,000 mL 04:55: ml/hr, Herm fawn 00 Infuse over: 13.3 hr, Route: IV, Dosing Weight 82.273 kg, Total Volume: 1,000, Start date: 06/25/18 23:55:00 CDT, Duration: 30 day, Stop date: 07/25/18 23:54:00 CDT, 2.04, m2 normal 2019-0 No 1,000 mL, Memori a saline 0.9% 3-19 Rate: 75 l IV 1,000 mL 04:55: ml/hr, Herm fawn 00 Infuse over: 13.3 hr, Route: IV, Dosing Weight 82.273 kg, Total Volume: 1,000, Start date: 06/25/18 23:55:00 CDT, Duration: 30 day, Stop date: 07/25/18 23:54:00 CDT, 2.04, m2 normal 2019-0 No 1,000 mL, Memori a saline 0.9% 3-19 Rate: 75 l IV 1,000 mL 04:55: ml/hr, Herm fawn 00 Infuse over: 13.3 hr, Route: IV, Dosing Weight 82.273 kg, Total Volume: 1,000, Start date: 06/25/18 23:55:00 CDT, Duration: 30 day, Stop date: 07/25/18 23:54:00 CDT, 2.04, m2 Acetaminoph 2019-0 No 650 mg, Mem oria en 3-19 Route: PO, l 02:35: Drug form: Seth 00 TAB, ONCE, Dosing Weight 82.273, kg, Priority: STAT, Start date: 06/25/18 21:35:00 CDT, Stop date: 06/25/18 21:35:00 CDT Acetaminoph 2019-0 No 650 mg, Mem oria en 3-19 Route: PO, l 02:35: Drug form: Seth 00 TAB, ONCE, Dosing Weight 82.273, kg, Priority: STAT, Start date: 06/25/18 21:35:00 CDT, Stop date: 06/25/18 21:35:00 CDT Acetaminoph 2019-0 No 650 mg, Mem oria en 3- Route: PO, l 02:35: Drug form: Alvin 00 TAB, ONCE, Dosing Weight 82.273, kg, Priority: STAT, Start date: 06/25/18 21:35:00 CDT, Stop date: 06/25/18 21:35:00 CDT Acetaminoph 2018-0 No 650 mg, Mem oria en - Route: PO, l 02:35: Drug form: Seth 00 TAB, ONCE, Dosing Weight 82.273, kg, Priority: STAT, Start date: 06/25/18 21:35:00 CDT, Stop date: 06/25/18 21:35:00 CDT Acetaminoph 2018-0 No 650 mg, Mem oria en 06-26 Route: PO, l 02:35: Drug form: Alvin 00 TAB, ONCE, Dosing Weight 82.273, kg, Priority: STAT, Start date: 06/25/18 21:35:00 CDT, Stop date: 06/25/18 21:35:00 CDT Acetaminoph 2019-0 No 650 mg, Mem oria en - Route: PO, l 02:35: Drug form: Seth 00 TAB, ONCE, Dosing Weight 82.273, kg, Priority: STAT, Start date: 06/25/18 21:35:00 CDT, Stop date: 06/25/18 21:35:00 CDT Acetaminoph 2018-0 No 650 mg, Mem oria en 3- Route: PO, l 02:35: Drug form: Seth 00 TAB, ONCE, Dosing Weight 82.273, kg, Priority: STAT, Start date: 06/25/18 21:35:00 CDT, Stop date: 06/25/18 21:35:00 CDT Acetaminoph 2018-0 No 650 mg, Mem oria en 3- Route: PO, l 02:35: Drug form: Seth 00 TAB, ONCE, Dosing Weight 82.273, kg, Priority: STAT, Start date: 06/25/18 21:35:00 CDT, Stop date: 06/25/18 21:35:00 CDT Acetaminoph 2019-0 No 650 mg, Mem oria en 06-26 Route: PO, l 02:35: Drug form: Seth 00 TAB, ONCE, Dosing Weight 82.273, kg, Priority: STAT, Start date: 06/25/18 21:35:00 CDT, Stop date: 06/25/18 21:35:00 CDT Acetaminoph 2019-0 No 650 mg, Mem oria en 06-26 Route: PO, l 02:35: Drug form: Alvin 00 TAB, ONCE, Dosing Weight 82.273, kg, Priority: STAT, Start date: 06/25/18 21:35:00 CDT, Stop date: 06/25/18 21:35:00 CDT Acetaminoph 2018-0 No 650 mg, Mem oria en 06-26 Route: PO, l 02:35: Drug form: Alvin 00 TAB, ONCE, Dosing Weight 82.273, kg, Priority: STAT, Start date: 06/25/18 21:35:00 CDT, Stop date: 06/25/18 21:35:00 CDT Acetaminoph 2019-0 No 650 mg, Mem oria en 06-26 Route: PO, l 02:35: Drug form: Alvin 00 TAB, ONCE, Dosing Weight 82.273, kg, Priority: STAT, Start date: 06/25/18 21:35:00 CDT, Stop date: 06/25/18 21:35:00 CDT Acetaminoph 2018-0 No 650 mg, Mem oria en 06-26 Route: PO, l 02:35: Drug form: Alvin 00 TAB, ONCE, Dosing Weight 82.273, kg, Priority: STAT, Start date: 06/25/18 21:35:00 CDT, Stop date: 06/25/18 21:35:00 CDT Acetaminoph 2019-0 No 650 mg, Mem oria en - Route: PO, l 02:35: Drug form: Alvin 00 TAB, ONCE, Dosing Weight 82.273, kg, Priority: STAT, Start date: 06/25/18 21:35:00 CDT, Stop date: 06/25/18 21:35:00 CDT Ondansetron 2019-0 No Notes: Boo swapnil 3-19 (Same as: l 01:35: Zofran) Seth 00 MEDICATION WASTE Product Size: 4 mg Product Wasted: ___ mg Ondansetron 2019-0 No Notes: Boo swapnil 3-19 (Same as: l 01:35: Zofran) Seth 00 MEDICATION WASTE Product Size: 4 mg Product Wasted: ___ mg Ondansetron 2019-0 No Notes: Boo swapnil 3-19 (Same as: l :35: Zofran) Seth 00 MEDICATION WASTE Product Size: 4 mg Product Wasted: ___ mg Ondansetron 2019-0 No Notes: Boo swapnil 3-19 (Same as: l :35: Zofran) Seth 00 MEDICATION WASTE Product Size: 4 mg Product Wasted: ___ mg Ondansetron 2019-0 No Notes: Boo swapnil 3-19 (Same as: l :35: Zofran) Seth 00 MEDICATION WASTE Product Size: 4 mg Product Wasted: ___ mg Ondansetron 2019-0 No Notes: Boo swapnil 3-19 (Same as: l :35: Zofran) Seth 00 MEDICATION WASTE Product Size: 4 mg Product Wasted: ___ mg Ondansetron 2019-0 No Notes: Boo swapnil 3-19 (Same as: l 01:35: Zofran) Seth 00 MEDICATION WASTE Product Size: 4 mg Product Wasted: ___ mg Ondansetron 2019-0 No Notes: Boo swapnil 3-19 (Same as: l 01:35: Zofran) Seth 00 MEDICATION WASTE Product Size: 4 mg Product Wasted: ___ mg Ondansetron 2019-0 No Notes: Boo swapnil 3-19 (Same as: l 01:35: Zofran) Seth 00 MEDICATION WASTE Product Size: 4 mg Product Wasted: ___ mg Ondansetron 2019-0 No Notes: Boo swapnil 3-19 (Same as: l 01:35: Zofran) Seth 00 MEDICATION WASTE Product Size: 4 mg Product Wasted: ___ mg Ondansetron 2019-0 No Notes: Boo swapnil 3-19 (Same as: l 01:35: Zofran) Seth 00 MEDICATION WASTE Product Size: 4 mg Product Wasted: ___ mg Ondansetron 2019-0 No Notes: Boo swapnil 3-19 (Same as: l 01:35: Zofran) Seth 00 MEDICATION WASTE Product Size: 4 mg Product Wasted: ___ mg Ondansetron 2019-0 No Notes: Boo swapnil 3-19 (Same as: l 01:35: Zofran) Seth 00 MEDICATION WASTE Product Size: 4 mg Product Wasted: ___ mg Ondansetron 2019-0 No Notes: Boo swapnil 3-19 (Same as: l 01:35: Zofran) Seth 00 MEDICATION WASTE Product Size: 4 mg Product Wasted: ___ mg Keppra 2019-0 No 1,000 mg, Memori a 3-19 Route: IV, l 00:43: ONCE, Seth 00 Dosing Weight 82.273, kg, Start date: 06/25/18 19:43:00 CDT, Stop date: 06/25/18 19:43:00 CDT Keppra 2019-0 No 1,000 mg, Memori a 3-19 Route: IV, l 00:43: ONCE, Alvin 00 Dosing Weight 82.273, kg, Start date: 06/25/18 19:43:00 CDT, Stop date: 06/25/18 19:43:00 CDT Keppra 2019-0 No 1,000 mg, Memori a 3-19 Route: IV, l 00:43: ONCE, Seth 00 Dosing Weight 82.273, kg, Start date: 06/25/18 19:43:00 CDT, Stop date: 06/25/18 19:43:00 CDT Keppra 2019-0 No 1,000 mg, Memori a 3-19 Route: IV, l 00:43: ONCE, Alvin 00 Dosing Weight 82.273, kg, Start date: 06/25/18 19:43:00 CDT, Stop date: 06/25/18 19:43:00 CDT Keppra 2019-0 No 1,000 mg, Memori a 3-19 Route: IV, l 00:43: ONCE, Alvin 00 Dosing Weight 82.273, kg, Start date: 06/25/18 19:43:00 CDT, Stop date: 06/25/18 19:43:00 CDT Keppra 2019-0 No 1,000 mg, Memori a 3-19 Route: IV, l 00:43: ONCE, Seth 00 Dosing Weight 82.273, kg, Start date: 06/25/18 19:43:00 CDT, Stop date: 06/25/18 19:43:00 CDT Keppra 2019-0 No 1,000 mg, Memori a 3-19 Route: IV, l 00:43: ONCE, Seth 00 Dosing Weight 82.273, kg, Start date: 06/25/18 19:43:00 CDT, Stop date: 06/25/18 19:43:00 CDT Keppra 2019-0 No 1,000 mg, Memori a 3-19 Route: IV, l 00:43: ONCE, Seth 00 Dosing Weight 82.273, kg, Start date: 06/25/18 19:43:00 CDT, Stop date: 06/25/18 19:43:00 CDT Keppra 2019-0 No 1,000 mg, Memori a 3-19 Route: IV, l 00:43: ONCE, Alvin 00 Dosing Weight 82.273, kg, Start date: 06/25/18 19:43:00 CDT, Stop date: 06/25/18 19:43:00 CDT Keppra 2019-0 No 1,000 mg, Memori a 3-19 Route: IV, l 00:43: ONCE, Alvin 00 Dosing Weight 82.273, kg, Start date: 06/25/18 19:43:00 CDT, Stop date: 06/25/18 19:43:00 CDT Keppra 2019-0 No 1,000 mg, Memori a 3-19 Route: IV, l 00:43: ONCE, Seth 00 Dosing Weight 82.273, kg, Start date: 06/25/18 19:43:00 CDT, Stop date: 06/25/18 19:43:00 CDT Keppra 2019-0 No 1,000 mg, Memori a 3-19 Route: IV, l 00:43: ONCE, Alvin 00 Dosing Weight 82.273, kg, Start date: 06/25/18 19:43:00 CDT, Stop date: 06/25/18 19:43:00 CDT Keppra 2019-0 No 1,000 mg, Memori a 3- Route: IV, l 00:43: ONCE, Dosing Weight 82.273, kg, Start date: 06/25/18 19:43:00 CDT, Stop date: 06/25/18 19:43:00 CDT Keppra 2019-0 No 1,000 mg, Memori a 3- Route: IV, l 00:43: ONCE, Dosing Weight 82.273, kg, Start date: 06/25/18 19:43:00 CDT, Stop date: 06/25/18 19:43:00 CDT mycophenola 2010-0 Yes 500mg QD Take 1 [facility]-[address] (CELLCEPT) 00:00: (500 mg [facility] 500 mg 00 total) by l tablet mouth daily. No known No [facility] medications y [facility] Vital Signs Vital Name Observation Time Observation Value Comments Source Systolic blood 2022-12-15 153 mm[Hg] [facility] pressure 16:00:00 [facility] Diastolic blood 2022-12-15 88 mm[Hg] Reading o f pressure 16:00:00 [facility] Heart rate 2022-12-15 87 /min [facility] 16:00:00 [facility] Respiratory rate 2022-12-15 20 /min [facility] 16:00:00 [facility] Oxygen saturation 2022-12-15 97 /min [facility] in Arterial blood 16:00:00 [facility] by Pulse oximetry [place] Body temperature 2022-12-15 36.17 Norma [facility] 14:58:00 [facility] Body height 2022-12-15 172.7 cm [facility] 14:58:00 [facility] Body weight 2022-12-15 63.504 kg [facility] 14:58:00 [facility] BMI 2022-12-15 21.29 kg/m2 [facility] 14:58:00 [facility] Systolic blood 2022-11-01 175 mm[Hg] Pt did not take [facility] pressure 14::00 BP meds this am [facility] Diastolic blood 2022-11-01 91 mm[Hg] Pt did not take [facility] pressure 14:25:00 BP meds this am [facility] Heart rate 2022-11-01 58 /min [facility] 14:20:00 [facility] Body temperature 2022-11-01 36.39 Norma [facility] 14:20:00 [facility] Respiratory rate 2022-11-01 18 /min [facility] 14:20:00 [facility] Body height 2022-11-01 176.5 cm [facility] 14:20:00 [facility] Body weight 2022-11-01 76.975 kg [facility] 14:20:00 [facility] BMI 2022-11-01 24.70 kg/m2 [facility] 14:20:00 [facility] Oxygen saturation 2022-11-01 99 /min [facility] in Arterial blood 14:20:00 [facility] padmini by Pulse oximetry Branch Systolic blood 2022-10-25 160 mm[Hg] [facility] pressure 16:49:00 [facility] Diastolic blood 2022-10-25 73 mm[Hg] University o f pressure 16:49:00 [facility] Heart rate 2022-10-25 46 /min [facility] 16:49:00 [facility] Body temperature 2022-10-25 37.22 Norma [facility] 16:48:00 [facility] Respiratory rate 2022-10-25 18 /min [facility] 16:48:00 [facility] Body height 2022-10-25 177.8 cm [facility] 16:48:00 [facility] Body weight 2022-10-25 74.844 kg University of 16:48:00 [facility] BMI 2022-10-25 23.68 kg/m2 [facility] 16:48:00 [facility] Oxygen saturation 2022-10-25 91 /min [facility] in Arterial blood 16:48:00 [facility] by Pulse oximetry Branch Systolic blood 2022-07-31 152 mm[Hg] [facility] pressure 16:28:00 [facility] Diastolic blood 2022-07-31 73 mm[Hg] University o f pressure 16:28:00 [facility] Heart rate 2022-07-31 58 /min [facility] of 16:28:00 [facility] Body temperature 2022-07-31 36.56 Norma [facility] 16:28:00 [facility] Respiratory rate 2022-07-31 16 /min [facility] 16:28:00 [facility] Oxygen saturation 2022-07-31 98 /min [facility] of in Arterial blood 16:28:00 [facility] by Pulse oximetry Branch Body weight 2022-07-31 75.479 kg University of 08:12:00 [facility] BMI 2022-07-31 23.21 kg/m2 [facility] of 08:12:00 [facility] Body height 2022-07-28 180.3 cm [facility] of 02:10:00 [facility] Systolic blood 2019-08-07 139 mm[Hg] [facility] of pressure 20:25:00 [facility] Diastolic blood 2019-08-07 82 mm[Hg] University o f pressure 20:25:00 [facility] Heart rate 2019-08-07 60 /min [facility] of 20::00 [facility] Body temperature 2019-08-07 36.89 Norma [facility] 20::00 [facility] Respiratory rate 2019-08-07 18 /min [facility] of 20::00 [facility] Body height 2019-08-07 179.1 cm [facility] of 20::00 [facility] Body weight 2019-08-07 81.647 kg University of 20::00 [facility] BMI 2019-08-07 25.46 kg/m2 [facility] 20::00 [facility] Oxygen saturation 2019-08-07 97 /min [facility] in Arterial blood 20::00 [facility] by Pulse oximetry Branch Systolic blood 2019-08-07 139 mm[Hg] [facility] pressure 20:25:00 [facility] Diastolic blood 2019-08-07 82 mm[Hg] University o f pressure 20:25:00 [facility] Heart rate 2019-08-07 60 /min [facility] 20::00 [facility] Body temperature 2019-08-07 36.89 Norma [facility] 20::00 [facility] Respiratory rate 2019-08-07 18 /min [facility] of 20:21:00 [facility] Body height 2019-08-07 179.1 cm [facility] 20::00 [facility] Body weight 2019-08-07 81.647 kg University of 20:21:00 [facility] BMI 2019-08-07 25.46 kg/m2 [facility] of 20:21:00 [facility] Oxygen saturation 2019-08-07 97 /min [facility] in Arterial blood 20:21:00 [facility] by Pulse oximetry Branch Diastolic blood 2019-08-07 81 mm[Hg] University o f pressure 19:44:00 [facility] Heart rate 2019-08-07 61 /min [facility] of 19:44:00 [facility] Body temperature 2019-08-07 35.89 Norma [facility] 19:44:00 [facility] Respiratory rate 2019-08-07 18 /min [facility] 19:44:00 [facility] Body weight 2019-08-07 81.647 kg University of 19:44:00 [facility] Oxygen saturation 2019-08-07 100 /min [facility] in Arterial blood 19:44:00 [facility] by Pulse oximetry Branch Systolic blood 2019-08-07 157 mm[Hg] [facility] pressure 19:44:00 [facility] Diastolic blood 2019-08-07 81 mm[Hg] University o f pressure 19:44:00 [facility] Heart rate 2019-08-07 61 /min [facility] of 19:44:00 [facility] Body temperature 2019-08-07 35.89 Norma [facility] 19:44:00 [facility] Respiratory rate 2019-08-07 18 /min [facility] 19:44:00 [facility] Body weight 2019-08-07 81.647 kg University of 19:44:00 [facility] Oxygen saturation 2019-08-07 100 /min [facility] in Arterial blood 19:44:00 [facility] by Pulse oximetry Branch Systolic blood 2019-08-07 157 mm[Hg] [facility] pressure 19:44:00 [facility] Systolic blood 2022-07-20 160 mm[Hg] [facility] pressure 14:06:00 Hospital Diastolic blood 2022-07-20 90 mm[Hg] [facility] pressure 14:06:00 Hospital Heart rate 2022-07-20 66 /min [facility] 14:06:00 Hospital Respiratory rate 2022-07-20 18 /min [facility] 14:06:00 [facility] Body height 2022-07-20 177.8 cm [facility] 14:06:00 Hospital Body weight 2022-07-20 72.122 kg [facility] 14:06:00 Hospital BMI 2022-07-20 22.81 kg/m2 [facility] 14[facility]06:00 Hospital Temperature Oral 2018-06-[address] [facility] (F) 17:30:00 Respitory Rate 2018-06-29 [facility] 17:30:00 Heart Rate 2018-06-29 [facility] 17:[facility] Systolic (mm Hg) 2018-06-29 [facility] 17:30:00 Diastolic (mm Hg) 2018-06-29 [facility] 17:30:00 Respitory Rate 2018-06-29 [facility] 13:00:00 Heart Rate 2018-06-29 [facility] 13:00:00 Temperature Oral 2018-06-[address] [facility] (F) 13:00:00 Systolic (mm Hg) 2018-06-29 [facility] rmann 13:00:00 Diastolic (mm Hg) 2018-06-29 [facility] ermann 13:00:00 Systolic (mm Hg) 2018-06-29 [facility] 09:21:00 Diastolic (mm Hg) 2018-06-29 [facility] ermann 09:21:00 Respitory Rate 2018-06-29 [facility] 09:21:00 Heart Rate 2018-06-29 [facility] 09:21:00 Temperature Oral 2018-06-[address] [facility] (F) 09:21:00 Weight 2018-06-25 [facility] 23:42:00 BMI Calculated 2018-06-25 [facility] 23:42:00 Height 2018-06-[address] [facility] 23:42:00 Procedures Procedure Date / Time Performing Clinician Source Performed ASSIGNMENT OF BENEFITS 2022-12-15 18:06:45 Doctor Unassigned, No [facility] Name [facility] CONSENT/REFUSAL FOR 2022-12-15 18:06:26 Doctor Unassigned, [facility] TREAT[facility] URINALYSIS 2022-12-15 17:44:00 Kvng Galloway [facility] LIPASE 2022-12-15 15:43:00 Kvng Galloway [facility] MAGNESIUM 2022-12-15 15:43:00 Kvng Galloway [facility] TROPONIN I 2022-12-15 15:43:00 Kvng Galloway Michelle Reading o f [facility] COMP. METABOLIC PANEL 2022-12-15 15:43:00 Kvng Galloway [facility] ([id number]) Medical Branch CBC WITH DIFF 2022-12-15 15:43:00 Kvng Galloway Michelle Reading o f [facility] RAPID INFLUENZA A/B 2022-12-15 15:43:00 Kvng Galloway [facility] COVID-19 (ID NOW RAPID 2022-12-15 15:43:00 Kvng Galloway [facility] TESTING) Medical Branch PHYSICIAN ORDERS 2022-11-17 05:01:00 Doctor Unassigned, No [facility] CT ABDOMEN PELVIS WO 2022-09-28 13:29:00 Vince Jung [facility] CONTRAST Medical Branch PHYSICIAN ORDERS 2022-09-14 05:01:00 Doctor Unassigned, No [facility] REFERRAL- 2022-09-06 05:01:00 Doctor Unassigned, No [facility] REQUEST/RESPONSE [facility] ASSIGNMENT OF BENEFITS 2022-08-17 20:05:52 Doctor Unassigned, No [facility] BASIC METABOLIC PANEL 2022-07-31 14:22:00 Alyson Walker [facility] (NA, K, CL, CO2, GLUCOSE, Medica l Branch BUN, CREATININE, CA) PHOSPHORUS 2022-07-30 09:30:00 Mkye Patel [facility] URIC ACID 2022-07-30 09:30:00 Myke Patel [facility] MAGNESIUM 2022-07-30 09:30:00 Myke Patel [facility] COMP. METABOLIC PANEL 2022-07-30 09:30:00 Myke [facility] ([id number]) Medical Branch CBC WITH DIFF 2022-07-30 09:30:00 Myke Patel [facility] US RETROPERITONEAL 2022-07-29 22:38:00 Eunice Evans [facility] COMPLETE Medical Branch OCCULT (GUAIAC) BLOOD 2022-07-29 11:29:00 [facility] BASIC METABOLIC PANEL 2022-07-29 09:18:00 [facility] (NA, K, CL, CO2, GLUCOSE, Medica l Branch BUN, CREATININE, CA) CBC WITH DIFF 2022-07-29 09:18:00 Mami Jansen [facility] BASIC METABOLIC PANEL 2022-07-28 09:19:00 [facility] (NA, K, CL, CO2, GLUCOSE, Medica l Branch BUN, CREATININE, CA) CBC WITH DIFF 2022-07-28 09:19:00 [facility] SIROLIMUS LEVEL 2022-07-28 09:19:00 [facility] COMP. METABOLIC PANEL 2022-07-28 03:36:00 [facility] ([id number]) [facility] CBC WITH DIFF 2022-07-28 03:36:00 Fredy Chin [facility] CONSENT/REFUSAL FOR 2022-07-28 02:03:05 Doctor Un[facility]igned, No [facility] DI[facility]IS AND TREATMENT Name [facility] NOTICE OF PRIVACY 2022-07-28 02:02:29 Doctor Unassigned, No [facility] PRACTICES Name [facility] Selective catheter 2018-06-28 13:25:00 [facility] placement, common carotid or innominate artery, unilateral, [...] Planned Date Details Comments Source Future Scheduled 2022-12-12 COVID-19 VACCINE (#1) [facility] 06:50:21 [code = COVID-19 VACCINE (#1)] Future Scheduled 2022-12-12 65+ [facility]UMOCOCCAL [facility] Test 06:50:21 VACCINE (1 - PCV) [code = 65+ PNEUMOCOCCAL VACCINE (1 - PCV)] Future Scheduled 2022-12-12 Hepatitis C screening [facility] Test 06:50:21 (procedure) [code = 657917930] Future Scheduled 2022-12-12 SHINGLES VACCINES (1 Met [facility] Test 06:50:21 of 2) [code = SHINGLES VACCINES (1 of 2)] Future Scheduled 2022-12-12 INFLUENZA VACCINE (#1) M ethodi Hospital Test 06:50:21 [code = INFLUENZA VACCINE (#1)] Future Scheduled 2022-12-09 Influenza Vaccine (#1[facility]00 [code = Influenza Medical Ce nter Vaccine (#1)] Future Scheduled 2022-04-[address] [facility] Test 00:00:00 (12+) [code = Medical Center DEPRESSION SCREENING (12+)] Future Scheduled 2022-04-10 FALLS RISK SCREENING [facility] Test 00:00:00 [code = FALLS RISK Medical C enter SCREENING] Future Scheduled 2013-12-[address] [facility] Test 00:00:00 WELLNESS (YEAR 2 or Medical Center FIRST YEAR if no IPPE) [code = MEDICARE ANNUAL WELLNESS (YEAR 2 or FIRST YEAR if no IPPE)] Future Scheduled 2013-09-[address] [facility] Test 00:00:00 measurement Medical Center (procedure) [code = 79054813] Future Scheduled 1961 DTAP/TDAP/TD VACCINES [facility] Test 00:00:00 (1 - Tdap) [code = Medical C enter DTAP/TDAP/TD VACCINES (1 - Tdap)] Future Scheduled 1961 SHINGLES VACCINES ([address] [facility] Test 00:00:00 of 2) [code = SHINGLES Medic al Center VACCINES (1 of 2)] Future Scheduled 1960 HEPATITIS C SCREENING [facility] Test 00:00:00 [code = HEPATITIS C Medical Center SCREENING] Future Scheduled [address] [facility] Test 00:00:00 Counseling and Medical Cente r Screening (12+) [code = Tobacco Cessation Counseling and Screening (12+)] Future Scheduled 1952 DIABETIC EYE EXAM [facility] Test 00:00:00 [code = DIABETIC EYE Medical Center EXAM] Future Scheduled [address] [facility] Test 00:00:00 examination Medical Center (regime/therapy) [code = 299705600] Future Scheduled 1952 Urine screening for [facility] Test 00:00:00 protein (procedure) Medical Center [code = 351364374] Future Scheduled 1948 PNEUMOCOCCAL 65+ Y[facility] Test 00:00:00 (1 - PCV) [code = Medical Ce nter PNEUMOCOCCAL 65+ YRS (1 - PCV)] Future Scheduled 1943-06-24 COVID-19 VACCINE (#1) [facility] Test 00:00:00 [code = COVID-[address] VACCINE (#1)] Encounters Start End Encounter Admission Attending Care Care Encounter Source Date/Time Date/Time Type Type Clinicians Facility Department ID 2022-12-15 2022-12-15 Emergency X Kvng GALLOWAY [facility] ERT [id number] Univers 10:07:00 14:08:00 ity of [facility] 2022-12-15 2022-12-15 Emergency Kvng Galloway [facility] 1.2.840.114 [id number] Univers 10:07:00 14:08:00 Michelle MCINTYRE 350.1.13.10 i ty [facility] 4.2.7.2.686 [facility] [phone] [facility] [address] [place] 2022-11-17 2022-11-17 Sky Cap Lakshmi Oliva Lab Main [facility] 1.2.8 40.114 [id number] Univers 10:30:00 10:45:00 Visit Henrique Thomas 350.1.13.10 ity [facility] 4.2.7.2.686 [facility] [phone] [place] dical [facility] 353 [facility] 2022-11-17 2022-11-17 Outpatient R HENRIQUE THOMAS [facility] 1 [id number] Univers 10:30:00 10:30:00 ANHENRIQUE HERNANDEZ ity of [facility] 2022-11-17 2022-11-17 Orders Doctor BELLE 1.2.840.114 [id number] Univers 00:00:00 00:00:00 Only Unassigned, MICHAEL 350.1.13.[address] [place] [facility] 4.2.7.2.686 Cameron [id number] [facility] 009 Branch 2022-11-01 2022-11-01 Outpatient R KALI [facility] [id number] Univers 09:00:00 10:17:16 DC ity of [facility] 2022-11-01 2022-11-01 Office [facility] 1.2.840.114 [id number] Univers 09:00:00 10:17:16 Visit [facility] 350.1.13.10 it y of [place] 4.2.7.2.686 [facility] - [phone] Med ical [facility] 204 Branch 2022-10-25 2022-10-25 Outpatient R JEFFERY [facility] [id number] Univers 11:30:00 12:09:03 VINCE ity of [facility] 2022-10-25 2022-10-25 [facility] 1.2.840.114 [id number] Univers 11:30:00 12:09:03 Visit Vince BHAKTA 350.1.13.10 it y of WOMEN'S 4.2.7.2.686 [facility] [phone] [facility] 204 Branch 2022-09-28 2022-09-28 Outpatient R JEFFERY [facility] [id number] Univers 07:50:28 23:59:00 VINCE ity of [facility] 2022-09-28 2022-09-28 [facility] 1.2.994.542 [id number] Univers 07:50:28 23:59:00 Encounter Vince MCINTYRE 350.1.13.10 ity of [facility] 4.2.7.2.686 [facility] [id number] [facility] 801 Branch 2022-09-28 2022-09-28 Telephone Jeffery [facility] 1.2.840.114 [id number] Univers 00:00:00 00:00:00 [facility] 350.1.13.10 it y of [place].2.[place] - [phone] [facility] 204 Branch 2022-09-20 2022-09-20 Outpatient R [facility] [id number] Univers 10:30:00 11:17:24 VINCE ity of [facility] 2022-09-19 2022-09-19 [facility]at [facility] [id number] 00:00[facility]00 00:00:00 ion [facility] 2022-09-19 2022-09-19 Refill [facility] [id number] 00:00:00 00:00:00 [facility] 2022-09-14 2022-09-14 Sky Cap aHzel, Adc Lab Main [facility] 1.2.8 40.114 [id number] Univers 15:30:00 15:45:00 Visit Manuel Thomasgem MCINTYRE 350.1.13.10 ity of [place].2.7.2.686 [place] [facility] [phone] [place] dical [facility] 353 [facility] 2022-09-14 2022-09-14 Outpatient R HENRIQUE THOMAS [facility] 1 [id number] Univers 15:30:00 15:30:00 HENRIQUE THOMAS ity of [facility] 2022-09-14 2022-09-14 Orders Doctor ODONNELL 1.2.840.114 [id number] Univers 00:00:00 00:00:00 Only Unassigned, MICHAEL 350.1.13.10 ity of [place] [facility] 4.2.7.2.686 Cameron as [phone] [facility] 009 Branch 2022-09-06 2022-09-06 Orders Doctor BELLE 1.2.840.114 [id number] Univers 00:00:00 00:00:00 Only Unassigned, MICHAEL 350.1.13.10 ity of [place] [facility] 4.2.7.2.686 Cameron as [phone] [facility] [address] [place] 2022-08-17 2022-08-17 Sky Cap Hazel, Lakshmi Lab Main [facility] 1.2.8 40.114 [id number] Univers 15:15:00 15:30:00 Visit Henrique Thomas MIGUELINA 350.1.13.10 ity of [place].2.[place] [id number] [place] dical [facility] 353 [facility] 2022-08-17 2022-08-17 Outpatient R HENRIQUE THOMAS [facility] 1 [id number] Univers 15:15:00 15:15:00 [facility] 2022-08-17 2022-08-17 Orders Doctor BELLE 1.2.840.114 [id number] Univers 00:00:00 00:00:00 Only Unassigned, MICHAEL 350.1.13.[address] [place] [facility] 4.2.7.2.686 [place] as [phone] [facility] [address] [place] 2022-08-02 2022-08-02 Transition JASSON Barnett 1.2.840.114 [id number] Univers 00:00:00 00:00:00 of Care Idania B CARTWRIGHT 350.1.13.10 it y of [place] [id number] [facility] [address] [place] 2022-08-01 2022-08-01 Documentat Dunia [facility] [id number] [id number] 00:00:00 00:00:00 ion Dori Shaw [facility] 2022-08-01 2022-08-01 RefBelle Blanco [facility] [id number] [id number] 00:00:00 00:00:00 [facility] 2022-07-27 2022-07-31 Inpatient X MICHELLE MIMARISABEL ALEAH [id number] Univers 21:35:00 16:00:00 ALYSON aldrich [facility] 2022-07-27 2022-07-31 Hospital Fredy Chin [facility] 1.2.8 40.114 [id number] Univers 21:35:00 16:00:00 Encounter Alyson Walker 350.1.13.10 ity kelli GERONIMO 4.2.7.2.686 [facility] [id number] [facility] 081 Branch 2022-07-20 2022-07-20 Office Brandon, 1.2.840.1 [id number] 004 [id number] Methodi 09:30:00 10:23:00 Visit Sayed RhondaSymone 41993.1.[address] 3.430.2.7 Hospit a .3.377111 l .8 2022-07-20 2022-07-20 Outpatient [facility] [id number] [place] 00:00:00 00:00:[address] 2022-07-20 2022-07-20 Outpatient [facility] [id number] [place] 00:00:00 00:00:[address]AYED [address] 2022-07-20 2022-07-20 Travel 1.2.840.1 1.2.186.981 [id number] Methodi 00:00:00 00:00:[address] 3.430.2.7 0.2.7.3.698 Ho spita .3.073271 084.8 l .8 2022-07-18 2022-07-18 Travel 1.2.840.1 1.2.599.101 [id number] Methodi 00:00:00 00:00:[address] 3.430.2.7 0.2.7.3.698 Ho spita .3.021698 084.8 l .8 2022-06-29 2022-06-29 Travel 1.2.840.1 1.2.660.107 9011 [id number] Methodi 00:00:00 00:00:[address] 3.430.2.7 0.2.7.3.698 Ho spita .3.528508 084.8 l .8 2022-06-03 2022-06-03 Documentat [facility] [id number] [id number] 00:00:00 00:00:00 celine [facility] 2022-06-03 2022-06-03 Belle Garcia [facility] [id number] [id number] 00:00:00 00:00:00 [facility] 2021-05-13 2021-05-13 Outpatient ALLI LADD [facility] [id number] SLE 12:33:46 12:33:46 [facility] 2020-05-14 2020-05-14 Outpatient ALLI LADD [facility] [id number] SLE 00:00:00 00:00:00 [facility] 2019-08-08 2019-08-08 Telephone BELLE Waggoner 1.2.840.114 [id number] 00:00:00 00:00:[address] [facility] 4.2.7.2.686 [id number] 019 2019-08-08 2019-08-08 Telephone BELLE Denny 1.2.840.114 [id number] 00:00:00 00:00:[address] [facility] 4.2.7.2.686 [id number] 019 2019-08-08 2019-08-08 Telephone BELLE Waggoner 1.2.840.114 [id number] Univers 00:00:00 00:00:00 Masha RODRIGUEZ 350.1.13.10 ity [facility] 4.2.7.2.686 [place] as [id number] [address] 2019-08-08 2019-08-08 Telephone BELLE Denny 1.2.840.114 [id number] [facility] 00:00:00 00:00:00 Janee RODRIGUEZ 350.1.13.10 i ty [facility] 4.2.7.2.686 [place] as [id number] [address] 2019-08-07 2019-08-07 Urgent Pob1, Acute [facility] 1.2.840.114 [id number] 15:03:55 16:05:36 [facility] 350.1.13.10 [place] 4.2.7.2.686 Professio [id number] nal [facility] Office [address] 2019-08-07 2019-08-07 Urgent Pob1, Acute Care Clinic [facility] 1. 2.840.114 [id number] Univers 15:03:55 16:05:36 Care Reddy Thibodeaux [facility] 350.1.13.10 ity kelli [place] 4.2.7.2.686 [place] as Professio [phone] Me dical [address] 2019-08-07 2019-08-07 Emergency Rowan, [facility] 1.2.408.706 [id number] 14:32:28 15:30:00 Tyler Mcintyre 350.1.13.10 [place] 4.2.7.2.686 [place] [phone] [facility] 2019-08-07 2019-08-07 Emergency Rowan, [facility] 1.2.308.453 [id number] [facility] 14:32:28 15:30:00 Tyler Mcintyre 350.1.13.10 i ty of [place].2.[place] [id number] [address] 2019-08-07 2019-08-07 Emergency X ROWAN, [facility] ERT [id number] Univers 14:32:28 14:32:28 TYLER aldrich [facility] 2018-07-12 2018-07-13 Outpatient nullFlavo OHA [id number] Memoria 16:15:00 04:59:59 r Neurosurger 00 l y [facility] 2018-07-12 2018-07-13 Outpatient nullFlavo MNA [id number] Memoria 16:15:00 04:59:59 r Neurosurger 00 l y [facility] 2018-07-12 2018-07-13 Outpt Diag nullFlavo [facility] [id number] Memoria 13:47:00 04:59:00 Services r Outpatient 00 l Imaging - Christiano Anderson 2018-07-12 2018-07-13 Outpt Diag nullFlavo [facility] [id number] Memoria 13:47:00 04:59:00 Services r Outpatient 00 l Imaging Ene Anderson 2018-07-12 2018-07-12 Outpatient EMMIE Oropeza MHMISCHER 3 [id number] 11:15:00 23:59:59 Enrico Meera 2018-07-12 2018-07-12 Outpatient DONI Oropeza [facility] [id number] 08:47:00 23:59:00 Enrico Meera 2018-07-12 2018-07-12 Outpatient MARGARETH IE [id number] Memoria 11:15:00 11:15:00 00 l Alvin 2018-07-02 2018-07-04 Phone nullFlavo MNA [id number] Memoria 14:41:00 04:59:59 Message r Neurosurger 00 l y [facility] 2018-07-02 2018-07-04 Phone nullFlavo MNA [id number] Memoria 14:41:00 04:59:59 Message r Neurosurger 00 l y [facility] 2018-07-02 2018-07-03 [facility] [id number] 09:41:00 23:59:59 00 2018-06-25 2018-06-29 Inpatient nullFlavo [facility] [id number] Memoria 23:40:00 18:30:[address] 2018-06-25 2018-06-29 Inpatient nullFlavo [facility] [id number] Memoria 23:40:00 18:30:[address] 2018-06-25 2018-06-29 Outpatient Dameon [facility] [id number] 18:40:00 13:30:00 [place] [address] Results Test Description Test Time Test Comments Results Result Comments Source TROPONIN I 2022-12-15 16:40:51 Test Item Value Reference Range Interpretation Comme nts TROPONIN I (test code = 3445376481) 0.016 ng/mL <=0.034 SHWETHA (test code = SHWETHA) Reference (Normal) Range (defined by the 99th percentile reference limit): <= 0.034 ng/mL Note: Cardiac troponin begins to rise 3-4 hours after the onset of ischemia. Repeat in 4-6 hours if the sample was drawn within 3-4 hours of the onset of the symptom and found normal. Diagnosis of myocardial injury is made with acute changes in cTn concentrations with at least one serial sample above the 99th percentile upper reference limit (URL), taken together with the patient's clinical presentation. Biotin has been reported to cause a negative bias, interpret results relative to patient's use of biotin. Lab Interpretation (test code = Normal 68872-9) [facility] 16:30:49 Test Item Value Reference Range Interpretation Comments MAGNESIUM (test code = 3801899487) 1.7 mg/dL 1.7-2.4 Lab Interpretation (test code = Normal 70562-6) [facility]OL[facility] (88817)2022-12-15 16:30:34 Test Item Value Reference Range Interpretation Comments NA (test code = 141 mmol/L 135-145 1796578742) K (test code = 4.0 mmol/L 3.5-5.0 5717016672) CL (test code = 112 mmol/L 98-108 H 4923859241) CO2 TOTAL (test code = 21 mmol/L 23-31 L 8164222479) AGAP (test code = 8 2-16 5217505789) BUN (test code = 45 mg/dL 7-23 H 9978432941) GLUCOSE (test code = 116 mg/dL 70-110 H 9432556007) CREATININE (test code = 2.53 mg/dL 0.60-1.25 H 7153529447) TOTAL BILI (test code = 0.7 mg/dL 0.1-1.0 7766395032) CALCIUM (test code = 8.4 mg/dL 8.6-10.6 L 7228380199) T PROTEIN (test code = 6.8 g/dL 6.3-8.2 7376786416) ALBUMIN (test code = 3.7 g/dL 3.5-5.0 2163450916) ALK PHOS (test code = 76 U/L 34-122 8495194682) ALTv (test code = 16 U/L 5-50 1742-6) AST(SGOT) (test code = 24 U/L 13-40 0314938247) eGFR (test code = 24.7 mL/min/1.73m2 0898247945) SHWETHA (test code = SHWETHA) Association of Glomerular Filtration Rate (GFR) and Staging of Kidney Disease* + --+ --+ ------+| GFR (mL/min/1.73 m2) ?| With Kidney Damage ?| ?Without Kidney Damage+ --------+ --------+ +| ?>90 ?| ?Stage one ?| ? Normal ?+ ---+ ---+ -------+| ?60-89 ?| ?Stage two ?| ? Decreased GFR ? + --+ --+ ------+| ?30-59 ?| ?Stage three ?| ? Stage three ? + --+ --+ ------+| ?15-29 ?| ?Stage four ? | ? Stage four ?+ ---+ ---+ -------+| ?<15 (or dialysis) ? ?| ?Stage five ? | ? Stage five ?+ ---+ ---+ -------+ *Each stage assumes the associated GFR level has been in effect for at least three months. ?Stages 1 to 5, with or without kidney disease, indicate chronic kidney disease. Notes: Determination of stages one and two (with eGFR >59mL/min/1.73 m2) requires estimation of kidney damage for at least three months as defined by structural or functional abnormalities of the kidney, manifested by either:Pathological abnormalities or Markers of kidney damage (including abnormalities in the composition of the blood or urine or abnormalities in imaging tests). Lab Interpretation Abnormal (test code = 77981-0) [facility] 16:30:13 Test Item Value Reference Range Interpretation Comments LIPASE (test code = 6111538370) 145 U/L 0-220 Lab Interpretation (test code = Normal 14828-6) [facility] WITH [id number] 16:26:12 Test Item Value Reference Range Interpretation Comments WBC (test code = 4.90 See_Comment [Automated 8614-2) message] The sy stem which generated this result transmitted reference range : 4.20 - 10.70 10*3/?L. The reference range was not used to interpret this result as normal/abnormal . RBC (test code = 3.87 See_Comment L [Automated 805-8) message] The sy stem which generated this result transmitted reference range : 4.26 - 5.52 10*6/?L. The reference range was not used to interpret this result as normal/abnormal . HGB (test code = 12.1 g/dL 12.2-16.4 L 718-7) HCT (test code = 37.7 % 38.4-49.3 L 4544-3) MCV (test code = 97.4 fL 81.7-95.6 H 787-2) MCH (test code = 31.3 pg 26.1-32.7 785-6) MCHC (test code = 32.1 g/dL 31.2-35.0 786-4) RDW-SD (test code = 50.3 fL 38.5-51.6 95812-0) RDW-CV (test code = 14.1 % 12.1-15.4 788-0) PLT (test code = 123 See_Comment L [Automated 777-3) message] The sy stem which generated this result transmitted reference range : 150 - 328 10*3/ ?L. The reference r efren was not used to interpret this result as normal/abnormal . MPV (test code = 10.0 fL 9.8-13.0 84590-0) IPF % (test code = 2.0 % 1.2-10.7 Platelet count 8113038428) measured by fluorescence method. NRBC/100 WBC (test 0.0 See_Comment [Automat ed code = 0709166557) message] The system which generated this result transmitted reference range : 0.0 - 10.0 /100 WBCs. The refer ence range was not u sed to interpret th is result as normal/abnormal . NRBC x10^3 (test code See_Comment [Auto mated = 1492850217) message] The s ystem which generated this result transmitted reference range : 10*3/?L. The reference range was not used to interpret this result as normal/abnormal . GRAN MAT (NEUT) % 83.1 % (test code = 770-8) IMM GRAN % (test code 0.20 % = 8079491372) LYMPH % (test code = 5.5 % 736-9) MONO % (test code = 10.8 % 5905-5) EOS % (test code = 0.2 % 713-8) BASO % (test code = 0.2 % 706-2) GRAN MAT x10^3(ANC) 4.07 10*3/uL 1.99-6.95 (test code = 9808814128) IMM GRAN x10^3 (test 0.00-0.06 code = 4042154286) LYMPH x10^3 (test code 0.27 10*3/uL 1.09-3.23 L = 731-0) MONO x10^3 (test code 0.53 10*3/uL 0.36-1.02 = 742-7) EOS x10^3 (test code = 0.06-0.53 L 711-2) BASO x10^3 (test code 0.01-0.09 = 704-7) Lab Interpretation Abnormal (test code = 31677-7) [facility] METABOLIC PANEL (NA, K, CL, CO2, GLUCOSE, BUN, CREATININE, CA)2022-07-31 15:00:31 Test Item Value Reference Range Interpretation Comments NA (test code = 140 mmol/L 135-145 7522180296) K (test code = 3.7 mmol/L 3.5-5.0 9552637303) CL (test code = 110 mmol/L 98-108 H 4471946295) CO2 TOTAL (test code = 23 mmol/L 23-31 1607271190) AGAP (test code = 7 2-16 3217625211) BUN (test code = 32 mg/dL 7-23 H 7409642003) GLUCOSE (test code = 113 mg/dL 70-110 H 5159202544) CREATININE (test code = 2.26 mg/dL 0.60-1.25 H 6981567292) CALCIUM (test code = 8.3 mg/dL 8.6-10.6 L 3817369565) eGFR (test code = 28.1 mL/min/1.73m2 8291746224) SHWETHA (test code = SHWETHA) Association of Glomerular Filtration Rate (GFR) and Staging of Kidney Disease* + --+ --+ ------+| GFR (mL/min/1.73 m2) ?| With Kidney Damage ?| ?Without Kidney Damage+ --------+ --------+ +| ?>90 ?| ?Stage one ?| ? Normal ?+ ---+ ---+ -------+| ?60-89 ?| ?Stage two ?| ? Decreased GFR ? + --+ --+ ------+| ?30-59 ?| ?Stage three ?| ? Stage three ? + --+ --+ ------+| ?15-29 ?| ?Stage four ? | ? Stage four ?+ ---+ ---+ -------+| ?<15 (or dialysis) ? ?| ?Stage five ? | ? Stage five ?+ ---+ ---+ -------+ *Each stage assumes the associated GFR level has been in effect for at least three months. ?Stages 1 to 5, with or without kidney disease, indicate chronic kidney disease. Notes: Determination of stages one and two (with eGFR >59mL/min/1.73 m2) requires estimation of kidney damage for at least three months as defined by structural or functional abnormalities of the kidney, manifested by either:Pathological abnormalities or Markers of kidney damage (including abnormalities in the composition of the blood or urine or abnormalities in imaging tests). Lab Interpretation Abnormal (test code = 80243-7) [id number]:00:00 Test Item Value Reference Range Interpretation Comments CULTURE (BEAKER) (test No growth in 5 days code = 1095) BLOOD [id number] 10:00:00 Test Item Value Reference Range Interpretation Comments CULTURE (BEAKER) (test No growth in 5 days code = 1095) SIROLIMUS [id number] 10:57:00 Test Item Value Reference Range Interpretation Comments SIROLIMUS LEVEL BLOOD (BEAKER) 4.6 ng/mL 5.0-15.0 L (test code = 806) Civil Engineer ID - MCKAY EPATIC FUNCTION [id number] 06:53:00 Test Item Value Reference Range Interpretation [...] code = 105 U/L 6-55 H 347) Civil Engineer EDVIN SHARP WBASIC METABOLIC [id number] 06:53:00 Test Item Value Reference Range Interpretation [...] 697) EGFR (BEAKER) (test 31 mL/min/1.73 ESTIMA EMORY GFR IS code = 1092) sq m NOT ACCURATE CREATININE CLEARANCE IN PREDICTING GLOMERULAR FILTRATION RATE . ESTIMATED GFR I S NOT APPLICABLE FOR DIALYSIS PATIEN TS. Civil Engineer ID Ene SHARP WCBC (HEMOGRAM ONLY)2019-04-25 06:00:00 Test Item [...] (BEAKER) (test code = 413) U/S, ABDOMINAL, [id number] 03:49:00With DopplerReason for exam:- >elevated liver enzymes, s/p liver transplant in 1998, concern for ch oldocholithiasisFINAL REPORT INDICATION: elevated liver enzymes, s/p liver transplant in 1998, concern for choldocholithiasis COMPARISON: None TECHNIQUE: Real-time christensen-scale transabdominal and color and spectral Doppler ultrasound. FINDINGS:Liver: Size: 14.3cm. Echogenicity: Normal. Masses/lesions: None. Surface Nodularity: None. Intrahepatic bile ducts: Normal. Common bile duct: 0.7cm. MPV: 1.2cm. Gallbladder: Surgically absent. Pancreas: Head and uncinate process: Not well-seen secondary topoor acoustic windowing.. Body and tail: Not well-seen. [...] right HV, middle HV and left HV arepatent. Additional findings: None. IMPRESSION: Postsurgical changes of an orthotopic liver transplant with unremarkable sonographic appearance of the transplant liver. Postsurgical changes of a cholecystectomy. Increased bilateral renal parenchymal echogenicity, nonspecific however can be seen with medical renal disease. Left nephrolithiasis however no hydronephrosis. Unremarkable hepatic Doppler examination. Signed: Viviana Alexis Verified Date/Time: 04/25/2019 03:49:02 Electronicallysigned by: VIVIANA ALEXIS MD on 04/25/2019 03:49 AMFL, [id number] 17:59:00Reason for exam:->ercpFINAL REPORT A fluoroscopic unit was utilized for a procedure performed in the operating room. No interpretation was requested. Please refer to the operative report regarding findings. Please refer to PACS for patient radiation dose information. Signed: Umair Purdy Verified Date/Time: 04/24/2019 17:59:55 Reading Location: [address] Consult Reading Room RESPIRATORY PANEL [id number] 17:42:00 Test Item Value Reference Range Interpretation [...] (test Not detected Not detected, code = 2694) Equivocal CORONAVIRUS 229E (BEAKER) Not detected Not [...] decisions. This sample was tested at the [facility] using the TransEngen Respiratory Panel. It is FDA cleared and has been verified and approved by the [facility] for clinical use on nasopharyngeal swab specimens.The performance of the FilmArrayRP has not been established in individuals who received influenza vaccine. Recent administration of a nasal influenza vaccine may cause false positive results for Influenza A and/orInfluenza B.RAPID INFLUENZA A&B [id number] 14:10:00 Test Item Value Reference Range Interpretation Comments RAPID INFLUENZA A AG (BEAKER) Negative Negative, Inconclusive (test code = 1622) RAPID INFLUENZA B AG (BEAKER) Negative Negative, Inconclusive (test code = 1623) SIROLIMUS [id number] 10:47:00 Test Item Value Reference Range Interpretation Comments SIROLIMUS LEVEL BLOOD (BEAKER) 5.5 ng/mL 5.0-15.0 (test code = 806) Civil Engineer ID - [facility] METABOLIC [id number] 07:14:00 Test Item Value Reference Range Interpretation [...] 697) EGFR (BEAKER) (test 31 mL/min/1.73 ESTIM[facility] GFR IS code = 1092) sq m NOT ACCURATE CREATININE CLEARANCE IN PREDICTING GLOMERULAR FILTRATION RATE . ESTIMATED GFR I S NOT APPLICABLE FOR DIALYSIS PATIEN TS. Civil Engineer ID - LASpecimen slightly ictericHEPATIC FUNCTION [id number] 07:14:00 Test Item Value Reference Range Interpretation [...] code = 152 U/L 6-55 H 347) Civil Engineer ID - LASpecimen slightly ictericPROTHROMBIN [id number] 07:07:00 Test Item Value Reference Range Interpretation [...] is 2.5-3.5 for patients wiht mechanical heart valves.CBC W/PLT COUNT & AUTO [id number] 06:58:00 Test Item Value Reference Range Interpretation [...] 0-1 PERCENT (BEAKER) (test code = 2801) [id number] 14:23:00 Test Item Value Reference Range Interpretation Comments AGAP (test code = AGAP) 12.5 10.0-20.0 [facility]hnjeagFQHEXVZYERXV2573-23-42 14:23:00 Test Item Value Reference Range Interpretation Comments Calcium Lvl (test code = Calcium Lvl) 7.8 8.5-10.5 [facility] HospitalKxyiszyDZYJTATIKGMG5693-59-38 14:23:00 Test Item Value Reference Range Interpretation Comments eGFR (test code = eGFR) 36 [facility] HospitalMsdoxyrIJVJPMEALMAO2095-51-77 14:23:00 Test Item Value Reference Range Interpretation Comments Chloride Lvl (test code = Chloride Lvl) 118 95-109 [facility] HospitalJoobyovRLTHKEYZMXSV2171-98-70 14:23:00 Test Item Value Reference Range Interpretation Comments CO2 (test code = CO2) 19 24-32 [facility] HospitalFjlwhqjMKNYBKNOQADC1569-74-42 14:23:00 Test Item Value Reference Range Interpretation Comments Creatinine Lvl (test code = Creatinine 1.79 0.50-1.40 Lvl) [facility] HospitalMdpfowfOXVAICJIRLDC9204-19-22 14:23:00 Test Item Value Reference Range Interpretation Comments Sodium Lvl (test code = Sodium Lvl) 146 135-145 [facility] HospitalShmavkfOYLBVNCLFRKA4674-21-25 14:23:00 Test Item Value Reference Range Interpretation Comments Glucose Lvl (test code = Glucose Lvl) 106 70-99 [facility] HospitalUccuffqXXIVUQVMCGUV1735-06-82 14:23:00 Test Item Value Reference Range Interpretation Comments BUN (test code = BUN) 26 7-22 [facility] HospitalDofwwtmRFLHKDKULCEI7789-68-63 14:23:00 Test Item Value Reference Range Interpretation Comments Potassium Lvl (test code = Potassium 3.5 3.5-5.1 Lvl) [facility] HospitalEleyxyzEPRSCBEQIIKW7690-03-69 14:23:00 Test Item Value Reference Range Interpretation Comments AGAP (test code = AGAP) 12.5 10.0-20.0 [facility] HospitalHjoacagATDAGNPQTFKW1522-73-96 14:23:00 Test Item Value Reference Range Interpretation Comments Calcium Lvl (test code = Calcium Lvl) 7.8 8.5-10.5 [facility] HospitalBsyqqrvCQUGTQRTETJW5113-79-22 14:23:00 Test Item Value Reference Range Interpretation Comments eGFR (test code = eGFR) 36 [facility] HospitalPobemiwCGFOWFTXVGNU8657-88-02 14:23:00 Test Item Value Reference Range Interpretation Comments Chloride Lvl (test code = Chloride Lvl) 118 95-109 [facility] HospitalFnzopscPOCOAPSLBNYJ0969-51-18 14:23:00 Test Item Value Reference Range Interpretation Comments CO2 (test code = CO2) 19 24-32 [facility] HospitalPxcogzcCXRPYYVTPHNY7292-40-17 14:23:00 Test Item Value Reference Range Interpretation Comments Creatinine Lvl (test code = Creatinine 1.79 0.50-1.40 Lvl) [facility] HospitalLngsgaqKCGEAMQCZZMY5678-89-32 14:23:00 Test Item Value Reference Range Interpretation Comments Sodium Lvl (test code = Sodium Lvl) 146 135-145 [facility] HospitalRrsrezpDEFCPFFYPXAA7308-34-78 14:23:00 Test Item Value Reference Range Interpretation Comments Glucose Lvl (test code = Glucose Lvl) 106 70-99 [facility] HospitalMhewddhTXIHHXZZFVRQ5965-75-25 14:23:00 Test Item Value Reference Range Interpretation Comments BUN (test code = BUN) 26 7-22 [facility] HospitalKpbmjyrVDWEGSCAWNMB1545-16-93 14:23:00 Test Item Value Reference Range Interpretation Comments Potassium Lvl (test code = Potassium 3.5 3.5-5.1 Lvl) [facility] HospitalExabvnpZARSPTBTLDVI1058-74-17 14:23:00 Test Item Value Reference Range Interpretation Comments AGAP (test code = AGAP) 12.5 10.0-20.0 [facility] HospitalBvszoqaNRJBBUKRJMBJ2778-31-20 14:23:00 Test Item Value Reference Range Interpretation Comments Calcium Lvl (test code = Calcium Lvl) 7.8 8.5-10.5 [facility] HospitalAzlwkibWYMOGLEXLCDQ2700-73-16 14:23:00 Test Item Value Reference Range Interpretation Comments eGFR (test code = eGFR) 36 [facility] HospitalVmwlvidHRJGXLJAYTDX7144-70-45 14:23:00 Test Item Value Reference Range Interpretation Comments Chloride Lvl (test code = Chloride Lvl) 118 95-109 [facility] HospitalEdcpkqwCAVCXRMTJSCJ1279-36-43 14:23:00 Test Item Value Reference Range Interpretation Comments CO2 (test code = CO2) 19 24-32 [facility] HospitalSccowfwHYOSCZUATFLE2928-62-07 14:23:00 Test Item Value Reference Range Interpretation Comments Creatinine Lvl (test code = Creatinine 1.79 0.50-1.40 Lvl) [facility] HospitalBkpfuuoKTSJYKDAGKUF8334-20-67 14:23:00 Test Item Value Reference Range Interpretation Comments Sodium Lvl (test code = Sodium Lvl) 146 135-145 [facility] HospitalNwmokfpTDJQXVAPVUUE9257-47-53 14:23:00 Test Item Value Reference Range Interpretation Comments Glucose Lvl (test code = Glucose Lvl) 106 70-99 [facility] HospitalUkimaomFQPVWLJLARIB5297-28-09 14:23:00 Test Item Value Reference Range Interpretation Comments BUN (test code = BUN) 26 7-22 [facility] HospitalDgislkfKBHVBIQTEKEJ1129-86-58 14:23:00 Test Item Value Reference Range Interpretation Comments Potassium Lvl (test code = Potassium 3.5 3.5-5.1 Lvl) [facility] HospitalFnbmohaZAWXOUEKMFTF8545-79-43 14:23:00 Test Item Value Reference Range Interpretation Comments AGAP (test code = AGAP) 12.5 10.0-20.0 [facility] HospitalZxhnxgqFWLWEDITYIZB9594-48-67 14:23:00 Test Item Value Reference Range Interpretation Comments Calcium Lvl (test code = Calcium Lvl) 7.8 8.5-10.5 [facility] HospitalNtbltroRWAVNWYONNGX2800-77-05 14:23:00 Test Item Value Reference Range Interpretation Comments eGFR (test code = eGFR) 36 [facility] HospitalGnofjaiITBHXYJUVYLB9485-27-96 14:23:00 Test Item Value Reference Range Interpretation Comments Chloride Lvl (test code = Chloride Lvl) 118 95-109 [facility] HospitalZafnldcJGKALKSFBXEF4554-22-11 14:23:00 Test Item Value Reference Range Interpretation Comments CO2 (test code = CO2) - [facility] HospitalYxcxknuEDRWQXDGMHOG1030-97-80 14:23:00 Test Item Value Reference Range Interpretation Comments Creatinine Lvl (test code = Creatinine 1.79 0.50-1.40 Lvl) [facility] HospitalFyffbclUFAQJPPTHQNV8998-27-29 14:23:00 Test Item Value Reference Range Interpretation Comments Sodium Lvl (test code = Sodium Lvl) 146 135-145 [facility] HospitalBqpceuzYTAPGJQWOQNF6186-83-71 14:23:00 Test Item Value Reference Range Interpretation Comments Glucose Lvl (test code = Glucose Lvl) 106 70-99 [facility] HospitalEhqwypgXBTTLMTOHCJE1011-23-02 14:23:00 Test Item Value Reference Range Interpretation Comments BUN (test code = BUN) 26 -22 [facility] HospitalOngvrkwWMVZGEUZWCPS4042-63-18 14:23:00 Test Item Value Reference Range Interpretation Comments Potassium Lvl (test code = Potassium 3.5 3.5-5.1 Lvl) [facility] HospitalGlobbtyCGCBNDWYIKAJ9678-74-35 14:23:00 Test Item Value Reference Range Interpretation Comments AGAP (test code = AGAP) 12.5 10.0-20.0 [facility] HospitalGkjffeyIVNCETHLUGAE7420-72-37 14:23:00 Test Item Value Reference Range Interpretation Comments Calcium Lvl (test code = Calcium Lvl) 7.8 8.5-10.5 [facility] HospitalCnunuccBNQNZBPNWNZB0636-51-25 14:23:00 Test Item Value Reference Range Interpretation Comments eGFR (test code = eGFR) 36 [facility] HospitalKkltrtbYYUDEMROTAYR1041-94-99 14:23:00 Test Item Value Reference Range Interpretation Comments Chloride Lvl (test code = Chloride Lvl) 118 95-109 [facility] HospitalTrkyuyrYIWBNQKPGDKO1369-57-10 14:23:00 Test Item Value Reference Range Interpretation Comments CO2 (test code = CO2) - [facility] HospitalNhjhbxcPRUHPZXGZANK1759-84-89 14:23:00 Test Item Value Reference Range Interpretation Comments Creatinine Lvl (test code = Creatinine 1.79 0.50-1.40 Lvl) [facility] HospitalOybxrnyQTNCDCTULTBC7078-90-19 14:23:00 Test Item Value Reference Range Interpretation Comments Sodium Lvl (test code = Sodium Lvl) 146 135-145 [facility] HospitalMwzndylYLZYQXKWQXDG8520-98-20 14:23:00 Test Item Value Reference Range Interpretation Comments Glucose Lvl (test code = Glucose Lvl) 106 70-99 [facility] HospitalFxbmvqjQVPDAAMYESAU5106-23-57 14:23:00 Test Item Value Reference Range Interpretation Comments BUN (test code = BUN) 02 11- [facility] HospitalRqggtbcMNNAZYVBTUXA1928-97-60 14:23:00 Test Item Value Reference Range Interpretation Comments Creatinine Lvl (test code = Creatinine 1.79 0.50-1.40 Lvl) [facility] HospitalVnbdsecIHQLFHFKKBVQ1147-52-80 14:23:00 Test Item Value Reference Range Interpretation Comments Sodium Lvl (test code = Sodium Lvl) 146 135-145 [facility] HospitalMpcibaiHKHHCEKEUJTB1624-38-90 14:23:00 Test Item Value Reference Range Interpretation Comments Glucose Lvl (test code = Glucose Lvl) 106 70-99 [facility] HospitalEabtodsTUPSESEWVYLY0573-32-81 14:23:00 Test Item Value Reference Range Interpretation Comments BUN (test code = BUN) 02 11- [facility] HospitalEgqxcklNZNQCZPVOJKN6879-67-22 14:23:00 Test Item Value Reference Range Interpretation Comments Potassium Lvl (test code = Potassium 3.5 3.5-5.1 Lvl) [facility] HospitalGxbagcpMWFKQZMTRYYX0416-44-70 14:23:00 Test Item Value Reference Range Interpretation Comments AGAP (test code = AGAP) 12.5 10.0-20.0 [facility] HospitalLjgretgDDMIODJEMZNU1811-50-34 14:23:00 Test Item Value Reference Range Interpretation Comments Calcium Lvl (test code = Calcium Lvl) 7.8 8.5-10.5 [facility] HospitalJurfjtmCLAULLOPMDMI0046-33-88 14:23:00 Test Item Value Reference Range Interpretation Comments eGFR (test code = eGFR) 36 [facility] HospitalFgscbrxOWZLINKAPYUT9949-68-29 14:23:00 Test Item Value Reference Range Interpretation Comments Chloride Lvl (test code = Chloride Lvl) 118 95-109 [facility] HospitalAamdzbkNYBMOUOUTRYQ3803-71-70 14:23:00 Test Item Value Reference Range Interpretation Comments CO2 (test code = CO2) 19 24-32 [facility] HospitalMvxbtecKUVWUQYUSJOL4766-72-17 14:23:00 Test Item Value Reference Range Interpretation Comments Potassium Lvl (test code = Potassium 3.5 3.5-5.1 Lvl) [facility] HospitalWfbeocoGIAKMTYVITZE0781-13-94 14:23:00 Test Item Value Reference Range Interpretation Comments AGAP (test code = AGAP) 12.5 10.0-20.0 [facility] HospitalWjfjunsEEKZBKAURCPK6087-87-50 14:23:00 Test Item Value Reference Range Interpretation Comments Calcium Lvl (test code = Calcium Lvl) 7.8 8.5-10.5 [facility] HospitalMbxchqvWUQSIXPVPNKK6663-48-96 14:23:00 Test Item Value Reference Range Interpretation Comments eGFR (test code = eGFR) 36 [facility] HospitalZwjujvxHZDGEOIEZKJE4197-30-93 14:23:00 Test Item Value Reference Range Interpretation Comments Chloride Lvl (test code = Chloride Lvl) 118 95-109 [facility] HospitalSqzqqcqNODDGLTSOIKY4817-51-14 14:23:00 Test Item Value Reference Range Interpretation Comments CO2 (test code = CO2) 19 24-32 [facility] HospitalYswgrujHAXZQWBRUHEN6183-32-17 14:23:00 Test Item Value Reference Range Interpretation Comments Creatinine Lvl (test code = Creatinine 1.79 0.50-1.40 Lvl) [facility] HospitalOmxvnbaMARZFBKZJKYB0318-66-40 14:23:00 Test Item Value Reference Range Interpretation Comments Sodium Lvl (test code = Sodium Lvl) 146 135-145 [facility] HospitalAfhmcpaRQAIRULGIUKM3038-85-87 14:23:00 Test Item Value Reference Range Interpretation Comments Glucose Lvl (test code = Glucose Lvl) 106 70-99 [facility] HospitalCprrcasMDOALVOZQVGZ5540-34-16 14:23:00 Test Item Value Reference Range Interpretation Comments BUN (test code = BUN) 26 7-22 [facility] HospitalQkykefiQOLIAFUBYJNK3472-26-20 14:23:00 Test Item Value Reference Range Interpretation Comments Potassium Lvl (test code = Potassium 3.5 3.5-5.1 Lvl) [facility] HospitalQwksdbuURPUTZCDFTEP4173-09-03 14:23:00 Test Item Value Reference Range Interpretation Comments AGAP (test code = AGAP) 12.5 10.0-20.0 [facility] HospitalXhnablcNZJLXTCSJBNK4810-69-13 14:23:00 Test Item Value Reference Range Interpretation Comments Calcium Lvl (test code = Calcium Lvl) 7.8 8.5-10.5 [facility] HospitalZiirycuYVGTNMCHHXWS7434-31-99 14:23:00 Test Item Value Reference Range Interpretation Comments eGFR (test code = eGFR) 36 [facility] HospitalOwnflhoTVPTHVSFGGJJ5743-19-21 14:23:00 Test Item Value Reference Range Interpretation Comments Chloride Lvl (test code = Chloride Lvl) 118 95-109 [facility] HospitalTdojaauIJNYPHEMACVF6185-78-79 14:23:00 Test Item Value Reference Range Interpretation Comments CO2 (test code = CO2) 19 24-32 [facility] HospitalOtqakdhPAQLKDVIWQVB1638-84-22 14:23:00 Test Item Value Reference Range Interpretation Comments Creatinine Lvl (test code = Creatinine 1.79 0.50-1.40 Lvl) [facility] HospitalPebnlggAZOXHVSPSZXC8013-05-88 14:23:00 Test Item Value Reference Range Interpretation Comments Sodium Lvl (test code = Sodium Lvl) 146 135-145 [facility] HospitalHxqwlycCSXXIFSWYALG5194-90-67 14:23:00 Test Item Value Reference Range Interpretation Comments Glucose Lvl (test code = Glucose Lvl) 106 70-99 [facility] HospitalHeokdnoEBDOWJQILOGZ6370-58-75 14:23:00 Test Item Value Reference Range Interpretation Comments BUN (test code = BUN) 26 7-22 [facility] HospitalRrxdxcgJKNLIELFWXMZ3401-59-39 14:23:00 Test Item Value Reference Range Interpretation Comments Potassium Lvl (test code = Potassium 3.5 3.5-5.1 Lvl) [facility] HospitalXcpotdwPEUZKGTUGVVC9430-39-14 14:23:00 Test Item Value Reference Range Interpretation Comments AGAP (test code = AGAP) 12.5 10.0-20.0 [facility] HospitalOuwcwxwCNPSEINOYLTJ5184-08-63 14:23:00 Test Item Value Reference Range Interpretation Comments Calcium Lvl (test code = Calcium Lvl) 7.8 8.5-10.5 [facility] HospitalXiohqjuCFHOLXZWRJDP4372-25-21 14:23:00 Test Item Value Reference Range Interpretation Comments eGFR (test code = eGFR) 36 [facility] HospitalZorelptRUXMMJAWXDLE7388-27-32 14:23:00 Test Item Value Reference Range Interpretation Comments Chloride Lvl (test code = Chloride Lvl) 118 95-109 [facility] HospitalEhqwmbcDDRKEKVLPSFZ7595-02-96 14:23:00 Test Item Value Reference Range Interpretation Comments CO2 (test code = CO2) 19 24- [facility] HospitalYnddlzqPKHMHKYFQARV5406-03-12 14:23:00 Test Item Value Reference Range Interpretation Comments Creatinine Lvl (test code = Creatinine 1.79 0.50-1.40 Lvl) [facility] HospitalOpghjxxUZLIDOZZROSZ6996-91-74 14:23:00 Test Item Value Reference Range Interpretation Comments Sodium Lvl (test code = Sodium Lvl) 146 135-145 [facility] HospitalRxieyweIAVUHBVRTGGV2525-39-59 14:23:00 Test Item Value Reference Range Interpretation Comments Glucose Lvl (test code = Glucose Lvl) 106 70-99 [facility] HospitalNmhxpmuJFZIWCPJTYZZ7958-61-85 14:23:00 Test Item Value Reference Range Interpretation Comments BUN (test code = BUN) 26 7-22 [facility] HospitalDkafcxhYBTHNWIHPLXL9340-57-03 14:23:00 Test Item Value Reference Range Interpretation Comments Potassium Lvl (test code = Potassium 3.5 3.5-5.1 Lvl) [facility] HospitalZohvgswMQLMSWXJXJSN2332-69-94 14:23:00 Test Item Value Reference Range Interpretation Comments AGAP (test code = AGAP) 12.5 10.0-20.0 [facility] HospitalQobzvksKDZSHGSVCLXS5429-45-19 14:23:00 Test Item Value Reference Range Interpretation Comments Calcium Lvl (test code = Calcium Lvl) 7.8 8.5-10.5 [facility] HospitalGfdckliGLGUASVMACXD9814-24-96 14:23:00 Test Item Value Reference Range Interpretation Comments eGFR (test code = eGFR) 36 [facility] HospitalKiqipbcXAJOLKPTFJSS3346-91-43 14:23:00 Test Item Value Reference Range Interpretation Comments Chloride Lvl (test code = Chloride Lvl) 118 95-109 [facility] HospitalJlswgxbNFEOQSZYYESH7355-39-02 14:23:00 Test Item Value Reference Range Interpretation Comments CO2 (test code = CO2) - [facility] HospitalGhgwjziXMKYSZYVZUVM7795-64-99 14:23:00 Test Item Value Reference Range Interpretation Comments Creatinine Lvl (test code = Creatinine 1.79 0.50-1.40 Lvl) [facility] HospitalFmebmqwKVDQBARLNUSX0270-36-09 14:23:00 Test Item Value Reference Range Interpretation Comments Sodium Lvl (test code = Sodium Lvl) 146 135-145 [facility] HospitalVwgzlaqBOXFPNJAIXVM2507-37-96 14:23:00 Test Item Value Reference Range Interpretation Comments Glucose Lvl (test code = Glucose Lvl) 106 70-99 [facility] HospitalNwdofyvBXMQDMXFQQMI5453-47-68 14:23:00 Test Item Value Reference Range Interpretation Comments BUN (test code = BUN) 26 - [facility] HospitalNgfbngdPYHUUDEFCHOM8947-22-48 14:23:00 Test Item Value Reference Range Interpretation Comments Potassium Lvl (test code = Potassium 3.5 3.5-5.1 Lvl) [facility] HospitalGjdavfgDXTCTFPGOPZQ5285-72-00 14:23:00 Test Item Value Reference Range Interpretation Comments AGAP (test code = AGAP) 12.5 10.0-20.0 [facility] HospitalJrrasbkIGWUPBPKQBFZ9012-29-00 14:23:00 Test Item Value Reference Range Interpretation Comments Calcium Lvl (test code = Calcium Lvl) 7.8 8.5-10.5 [facility] HospitalIkynmciDDOBIKYHMDXI0019-35-57 14:23:00 Test Item Value Reference Range Interpretation Comments eGFR (test code = eGFR) 36 [facility] HospitalTnddqsdNQFDOSZLCTRL8556-34-19 14:23:00 Test Item Value Reference Range Interpretation Comments Chloride Lvl (test code = Chloride Lvl) 118 95-109 [facility] HospitalGlzdzmuGOTZGDZSPBUY2636-50-80 14:23:00 Test Item Value Reference Range Interpretation Comments CO2 (test code = CO2) 19 24-32 [facility] HospitalIueqhmsRRUJMLVEFVWL9073-90-01 14:23:00 Test Item Value Reference Range Interpretation Comments Creatinine Lvl (test code = Creatinine 1.79 0.50-1.40 Lvl) [facility] HospitalYgucbkhXJHNUOAQBYAV3635-12-06 14:23:00 Test Item Value Reference Range Interpretation Comments Sodium Lvl (test code = Sodium Lvl) 146 135-145 [facility] HospitalRklgciiVGBOXKGYYMIX4356-86-75 14:23:00 Test Item Value Reference Range Interpretation Comments Glucose Lvl (test code = Glucose Lvl) 106 70-99 [facility] HospitalGjuqcomMRVNMLFJHRUT6323-12-19 14:23:00 Test Item Value Reference Range Interpretation Comments BUN (test code = BUN) 26 7-22 [facility] HospitalZgsndhoPAMQMXPVGTMC8907-22-04 14:23:00 Test Item Value Reference Range Interpretation Comments Potassium Lvl (test code = Potassium 3.5 3.5-5.1 Lvl) [facility] HospitalRoauiisKBRVQYCTDIBM1597-87-34 14:23:00 Test Item Value Reference Range Interpretation Comments AGAP (test code = AGAP) 12.5 10.0-20.0 [facility] HospitalKnzmikjXUHOGAZNHTNE4144-92-99 14:23:00 Test Item Value Reference Range Interpretation Comments Calcium Lvl (test code = Calcium Lvl) 7.8 8.5-10.5 [facility] HospitalJnvbhpsYZJSEMISUCLU5290-05-75 14:23:00 Test Item Value Reference Range Interpretation Comments eGFR (test code = eGFR) 36 [facility] HospitalBirraavKYAOKGRVXCIG3923-04-52 14:23:00 Test Item Value Reference Range Interpretation Comments Chloride Lvl (test code = Chloride Lvl) 118 95-109 [facility] HospitalOjzvekwGTDLEOSYDLHM6660-12-04 14:23:00 Test Item Value Reference Range Interpretation Comments CO2 (test code = CO2) 19 24-32 [facility] HospitalZcfwaezZBANJETPZKER1543-85-94 14:23:00 Test Item Value Reference Range Interpretation Comments Creatinine Lvl (test code = Creatinine 1.79 0.50-1.40 Lvl) [facility] HospitalMoiwlrwPAHCYGVLQDXD8806-38-25 14:23:00 Test Item Value Reference Range Interpretation Comments Sodium Lvl (test code = Sodium Lvl) 146 135-145 [facility] HospitalScmlvjjPWUSTWPFKUFV7220-34-25 14:23:00 Test Item Value Reference Range Interpretation Comments Glucose Lvl (test code = Glucose Lvl) 106 70-99 [facility] HospitalQqofdxiGURJJCGGIJQR2056-29-39 14:23:00 Test Item Value Reference Range Interpretation Comments BUN (test code = BUN) 26 7-22 [facility] HospitalLedfvudYAVOADXGBPDV6464-89-82 14:23:00 Test Item Value Reference Range Interpretation Comments Potassium Lvl (test code = Potassium 3.5 3.5-5.1 Lvl) [facility] HospitalOxbkosvYRKKVNKNEDXW4909-83-80 14:23:00 Test Item Value Reference Range Interpretation Comments AGAP (test code = AGAP) 12.5 10.0-20.0 [facility] HospitalKyqzjifVTNFVXYZLSNL1052-35-88 14:23:00 Test Item Value Reference Range Interpretation Comments Calcium Lvl (test code = Calcium Lvl) 7.8 8.5-10.5 [facility] HospitalHuzbthmSBUGXEDBRELP9788-48-68 14:23:00 Test Item Value Reference Range Interpretation Comments eGFR (test code = eGFR) 36 [facility] HospitalOdbjawfIQRZNGOZINAC1154-44-52 14:23:00 Test Item Value Reference Range Interpretation Comments Chloride Lvl (test code = Chloride Lvl) 118 95-109 [facility] HospitalGmkecvxTTATVWDXDCFU8578-26-90 14:23:00 Test Item Value Reference Range Interpretation Comments CO2 (test code = CO2) -32 [facility] HospitalDezrdrqGPQQSFHIEGHT5019-43-00 14:23:00 Test Item Value Reference Range Interpretation Comments Creatinine Lvl (test code = Creatinine 1.79 0.50-1.40 Lvl) [facility]tr[facility]loAFKQHZWOJRCD9763-50-25 14:23:00 Test Item Value Reference Range Interpretation Comments Sodium Lvl (test code = Sodium Lvl) 146 135-145 [facility]NfpwwdvBHGAZKCISGQF5968-67-64 14:23:00 Test Item Value Reference Range Interpretation Comments Glucose Lvl (test code = Glucose Lvl) 106 70-99 [facility]XbcpsmbREMDQABIHOHU9731-92-42 14:23:00 Test Item Value Reference Range Interpretation Comments BUN (test code = BUN) 26 7-22 [facility]WfungpsVILJRKZZZONH6338-28-47 14:23:00 Test Item Value Reference Range Interpretation Comments Potassium Lvl (test code = Potassium 3.5 3.5-5.1 Lvl) [facility]FgtvpoyXHLHJBGFWXFW0935-00-64 14:23:00 Test Item Value Reference Range Interpretation Comments AGAP (test code = AGAP) 12.5 10.0-20.0 [facility]MzgyysdVZZPKQJIZQBR0289-29-04 14:23:00 Test Item Value Reference Range Interpretation Comments Calcium Lvl (test code = Calcium Lvl) 7.8 8.5-10.5 [facility] HospitalVhdolonOFLASEEULVYO6831-91-44 14:23:00 Test Item Value Reference Range Interpretation Comments eGFR (test code = eGFR) 36 [facility] HospitalKazquocHTIJMMRIHCNG0220-93-90 14:23:00 Test Item Value Reference Range Interpretation Comments Chloride Lvl (test code = Chloride Lvl) 118 95-109 [facility] HospitalSompyooLVJGZZGCJEGP8496-61-28 14:23:00 Test Item Value Reference Range Interpretation Comments CO2 (test code = CO2) -32 [facility]AaltvzfVTCNXIMSEFXR8520-02-84 14:23:00 Test Item Value Reference Range Interpretation Comments Creatinine Lvl (test code = Creatinine 1.79 0.50-1.40 Lvl) [facility]QgcyxcaLPBCQNQXDDKL0508-38-60 14:23:00 Test Item Value Reference Range Interpretation Comments Sodium Lvl (test code = Sodium Lvl) 146 135-145 [facility]XedpyrjYGWPUAHPOEWB5539-08-15 14:23:00 Test Item Value Reference Range Interpretation Comments Glucose Lvl (test code = Glucose Lvl) 106 70-99 [facility] HospitalBvceafcVIODJBBVKRLH1635-55-03 14:23:00 Test Item Value Reference Range Interpretation Comments BUN (test code = BUN) 26 7-22 [facility] HospitalUpsdzrwOKJTKWGUDCQY1865-46-94 14:23:00 Test Item Value Reference Range Interpretation Comments Potassium Lvl (test code = Potassium 3.5 3.5-5.1 Lvl) [facility]2019-03-22 05:21:00 Test Item Value Reference Range Interpretation Comments Phosphorus (test code = Phosphorus) 1.9 2.5-4.5 [facility]2019-03-22 05:21:00 Test Item Value Reference Range Interpretation Comments Magnesium Lvl (test code = Magnesium 1.4 1.8-2.4 Lvl) [facility]UhbltyrIJMFQKNANB4390-50-15 05:21:00 Test Item Value Reference Range Interpretation Comments Lymphocytes (test code = Lymphocytes) 7.9 20.0-40.0 [facility] HospitalRpbfusfMRTIKRCUEU4929-82-67 05:21:00 Test Item Value Reference Range Interpretation Comments Segs (test code = Segs) 89.4 45.0-75.0 [facility] HospitalUudjhkcDCWXLFVPJK4960-52-83 05:21:00 Test Item Value Reference Range Interpretation Comments Lymphocytes # (test code = Lymphocytes 0.6 1.0-5.5 #) [facility] HospitalEgefyaoMAFBGCSAQI4977-48-22 05:21:00 Test Item Value Reference Range Interpretation Comments Neutrophils # (test code = Neutrophils 6.6 1.5-8.1 #) [facility] HospitalXvvyggjIDRKEBDIOZ7938-75-07 05:21:00 Test Item Value Reference Range Interpretation Comments Monocytes # (test code 0.2 See_Comment [Aut omated message] The = Monocytes #) system which generated this result tra nsmitted reference range : <=0.8. The reference r efren was not used to int erpret this result as normal/abnormal . [facility] HospitalJjcmjguJUNTSBVIRC4792-63-36 05:21:00 Test Item Value Reference Range Interpretation Comments Basophils (test code = 0.1 See_Comment [Aut omated message] The Basophils) system which ge nerated this result tra nsmitted reference range : <=1.0. The reference r efren was not used to int erpret this result as normal/abnormal . [facility] HospitalHbxxaqzMRDTARSFQV5366-62-50 05:21:00 Test Item Value Reference Range Interpretation Comments Monocytes (test code = Monocytes) 2.6 2.0-12.0 [facility] HospitalQamxppePIWXDSOFSC5844-65-98 05:21:00 Test Item Value Reference Range Interpretation Comments Platelet (test code = Platelet) 179 133-450 [facility] HospitalJuxceisVYKDQJSQUJ9165-57-33 05:21:00 Test Item Value Reference Range Interpretation Comments RDW (test code = RDW) 16.3 11.5-14.5 [facility] HospitalRislsehYBLLAXUHYX9108-04-57 05:21:00 Test Item Value Reference Range Interpretation Comments MPV (test code = MPV) 7.8 7.4-10.4 [facility] HospitalCvbpbwrVECQQDPQCB6992-25-82 05:21:00 Test Item Value Reference Range Interpretation Comments MCHC (test code = MCHC) 33.4 32.0-36.0 [facility] HospitalTzhryktQDPKIIRXNP7618-53-16 05:21:00 Test Item Value Reference Range Interpretation Comments MCV (test code = MCV) 90.7 80.0-94.0 [facility] HospitalFmpkdrePNHQLGDWSJ2469-65-76 05:21:00 Test Item Value Reference Range Interpretation Comments Hct (test code = Hct) 35.9 42.0-54.0 [facility] HospitalDactfeiMCLFMOTCZY9319-96-91 05:21:00 Test Item Value Reference Range Interpretation Comments MCH (test code = MCH) 30.3 pg 27.0-31.0 [facility] HospitalVfcryuhWXARODYFYR1865-92-72 05:21:00 Test Item Value Reference Range Interpretation Comments Hgb (test code = Hgb) 12.0 14.0-18.0 [facility] HospitalZqfrednCLQJJUOHVQ7752-45-15 05:21:00 Test Item Value Reference Range Interpretation Comments WBC (test code = WBC) 7.4 3.7-10.4 [facility] HospitalYusymitUZLXFZGUJA2807-44-05 05:21:00 Test Item Value Reference Range Interpretation Comments RBC (test code = RBC) 3.96 4.70-6.10 [facility]2019-03-22 05:21:00 Test Item Value Reference Range Interpretation Comments Ca Norm WB (test code = Ca Norm WB) 1.08 1.05-1.25 [facility]2019-03-22 05:21:00 Test Item Value Reference Range Interpretation Comments Ca Ion WB (test code = Ca Ion WB) 1.09 1.05-1.25 [facility] PWLLJ8092-00-98 05:21:00 Test Item Value Reference Range Interpretation Comments Phosphorus (test code = Phosphorus) 1.9 2.5-4.5 [facility] YOYPT5926-37-24 05:21:00 Test Item Value Reference Range Interpretation Comments Magnesium Lvl (test code = Magnesium 1.4 1.8-2.4 Lvl) [facility] HospitalAtdwzkiMFKWOXGWKB6037-12-49 05:21:00 Test Item Value Reference Range Interpretation Comments Lymphocytes (test code = Lymphocytes) 7.9 20.0-40.0 [facility] HospitalPahrldnULZLTQPIWJ3500-84-22 05:21:00 Test Item Value Reference Range Interpretation Comments Segs (test code = Segs) 89.4 45.0-75.0 [facility] HospitalEfovwcmCXEWGFDOEK5329-23-88 05:21:00 Test Item Value Reference Range Interpretation Comments Lymphocytes # (test code = Lymphocytes 0.6 1.0-5.5 #) [facility] HospitalOjlkcmpIYGOQGQNVV6584-17-89 05:21:00 Test Item Value Reference Range Interpretation Comments Neutrophils # (test code = Neutrophils 6.6 1.5-8.1 #) [facility] HospitalNsgnhseRFUPCNLRUC4950-42-12 05:21:00 Test Item Value Reference Range Interpretation Comments Monocytes # (test code 0.2 See_Comment [Aut omated message] The = Monocytes #) system which generated this result tra nsmitted reference range : <=0.8. The reference r efren was not used to int erpret this result as normal/abnormal . [facility] HospitalHoaavjzHDZSXWKHLI7788-96-03 05:21:00 Test Item Value Reference Range Interpretation Comments Basophils (test code = 0.1 See_Comment [Aut omated message] The Basophils) system which ge nerated this result tra nsmitted reference range : <=1.0. The reference r efren was not used to int erpret this result as normal/abnormal . [facility] HospitalGaadsxcUKXRDOJIXW8331-45-77 05:21:00 Test Item Value Reference Range Interpretation Comments Monocytes (test code = Monocytes) 2.6 2.0-12.0 [facility] HospitalOipavbdFNNSSDZFRV0483-43-35 05:21:00 Test Item Value Reference Range Interpretation Comments Platelet (test code = Platelet) 179 133-450 [facility] HospitalFsjhuxcEXPSITXYPQ7845-27-47 05:21:00 Test Item Value Reference Range Interpretation Comments RDW (test code = RDW) 16.3 11.5-14.5 [facility] HospitalYjwmbvjJBYZHCDNEM9885-86-31 05:21:00 Test Item Value Reference Range Interpretation Comments MPV (test code = MPV) 7.8 7.4-10.4 [facility] HospitalQlhcblkGLWDCMKKPU6547-40-21 05:21:00 Test Item Value Reference Range Interpretation Comments MCHC (test code = MCHC) 33.4 32.0-36.0 [facility] HospitalUlqajetBWYCBLPYRR0441-98-05 05:21:00 Test Item Value Reference Range Interpretation Comments MCV (test code = MCV) 90.7 80.0-94.0 [facility] HospitalKmgdigdVCCGXHZESC3096-92-80 05:21:00 Test Item Value Reference Range Interpretation Comments Hct (test code = Hct) 35.9 42.0-54.0 [facility] HospitalJfyvstwURXRGBUCHD4439-45-73 05:21:00 Test Item Value Reference Range Interpretation Comments MCH (test code = MCH) 30.3 pg 27.0-31.0 [facility] HospitalXkpwpahDVVLLWQVYB5615-96-71 05:21:00 Test Item Value Reference Range Interpretation Comments Hgb (test code = Hgb) 12.0 14.0-18.0 [facility] HospitalCghwxyfBEDGWZJCKE0411-46-09 05:21:00 Test Item Value Reference Range Interpretation Comments WBC (test code = WBC) 7.4 3.7-10.4 [facility] HospitalUwvxbyuJUGRWAZAIZ7753-17-68 05:21:00 Test Item Value Reference Range Interpretation Comments RBC (test code = RBC) 3.96 4.70-6.10 [facility]2019-03-22 05:21:00 Test Item Value Reference Range Interpretation Comments Ca Norm WB (test code = Ca Norm WB) 1.08 1.05-1.25 [facility]2019-03-22 05:21:00 Test Item Value Reference Range Interpretation Comments Ca Ion WB (test code = Ca Ion WB) 1.09 1.05-1.25 [facility]2019-03-22 05:21:00 Test Item Value Reference Range Interpretation Comments Phosphorus (test code = Phosphorus) 1.9 2.5-4.5 [facility]2019-03-22 05:21:00 Test Item Value Reference Range Interpretation Comments Magnesium Lvl (test code = Magnesium 1.4 1.8-2.4 Lvl) [facility] HospitalSxlxybrVYIVBOSUNI3146-51-97 05:21:00 Test Item Value Reference Range Interpretation Comments Lymphocytes (test code = Lymphocytes) 7.9 20.0-40.0 [facility] HospitalClztmbtGIOWIEPPKH2780-56-52 05:21:00 Test Item Value Reference Range Interpretation Comments Segs (test code = Segs) 89.4 45.0-75.0 [facility] HospitalCveemaiQJIDQXNVPR2859-91-50 05:21:00 Test Item Value Reference Range Interpretation Comments Lymphocytes # (test code = Lymphocytes 0.6 1.0-5.5 #) [facility] HospitalQupwifjRCPCESMSAC8560-42-47 05:21:00 Test Item Value Reference Range Interpretation Comments Neutrophils # (test code = Neutrophils 6.6 1.5-8.1 #) [facility] HospitalFmhziwyNCRMXZBWZV2817-79-73 05:21:00 Test Item Value Reference Range Interpretation Comments Monocytes # (test code 0.2 See_Comment [Aut omated message] The = Monocytes #) system which generated this result tra nsmitted reference range : <=0.8. The reference r efren was not used to int erpret this result as normal/abnormal . [facility] HospitalTmliulfZFZGCPPCAA1645-44-76 05:21:00 Test Item Value Reference Range Interpretation Comments Basophils (test code = 0.1 See_Comment [Aut omated message] The Basophils) system which ge nerated this result tra nsmitted reference range : <=1.0. The reference r efren was not used to int erpret this result as normal/abnormal . [facility] HospitalVxknbpfXSJHRBRBDK7540-01-77 05:21:00 Test Item Value Reference Range Interpretation Comments Monocytes (test code = Monocytes) 2.6 2.0-12.0 [facility] HospitalLhyibhbGBXPVOVLEQ2407-66-54 05:21:00 Test Item Value Reference Range Interpretation Comments Platelet (test code = Platelet) 179 133-450 [facility] HospitalCmswtjaXQDCRXLPIE0048-31-13 05:21:00 Test Item Value Reference Range Interpretation Comments RDW (test code = RDW) 16.3 11.5-14.5 [facility] HospitalZqxklecUJDYWNAEND5192-10-49 05:21:00 Test Item Value Reference Range Interpretation Comments MPV (test code = MPV) 7.8 7.4-10.4 [facility] HospitalLvasvaoEULUMTLPOU9030-25-14 05:21:00 Test Item Value Reference Range Interpretation Comments MCHC (test code = MCHC) 33.4 32.0-36.0 [facility] HospitalCkxbzvcYBMFJMATDN6898-63-92 05:21:00 Test Item Value Reference Range Interpretation Comments MCV (test code = MCV) 90.7 80.0-94.0 [facility] HospitalGqxsmodEKETICESPB4141-79-76 05:21:00 Test Item Value Reference Range Interpretation Comments Hct (test code = Hct) 35.9 42.0-54.0 [facility] HospitalOzvzgzjEKORPRZZFT2499-23-27 05:21:00 Test Item Value Reference Range Interpretation Comments MCH (test code = MCH) 30.3 pg 27.0-31.0 [facility] HospitalGdriizhPWNMGHXRSQ6450-43-23 05:21:00 Test Item Value Reference Range Interpretation Comments Hgb (test code = Hgb) 12.0 14.0-18.0 [facility] HospitalMnhwiytPMQZYJBBJZ5195-59-80 05:21:00 Test Item Value Reference Range Interpretation Comments WBC (test code = WBC) 7.4 3.7-10.4 [facility] HospitalEtqrurmKVSLPWFITL1026-46-52 05:21:00 Test Item Value Reference Range Interpretation Comments RBC (test code = RBC) 3.96 4.70-6.10 [facility] RMFKVVO7568-46-20 05:21:00 Test Item Value Reference Range Interpretation Comments Ca Norm WB (test code = Ca Norm WB) 1.08 1.05-1.25 [facility]2019-03-22 05:21:00 Test Item Value Reference Range Interpretation Comments Ca Ion WB (test code = Ca Ion WB) 1.09 1.05-1.25 [facility]CHE[facility] NYVAF8953-16-17 05:21:00 Test Item Value Reference Range Interpretation Comments Phosphorus (test code = Phosphorus) 1.9 2.5-4.5 [facility]2019-03-22 05:21:00 Test Item Value Reference Range Interpretation Comments Magnesium Lvl (test code = Magnesium 1.4 1.8-2.4 Lvl) [facility] HospitalAghmlsdVNKKESHDMF1679-78-91 05:21:00 Test Item Value Reference Range Interpretation Comments Lymphocytes (test code = Lymphocytes) 7.9 20.0-40.0 [facility] HospitalPwwvnwmBAAINLIUPY9979-92-72 05:21:00 Test Item Value Reference Range Interpretation Comments Segs (test code = Segs) 89.4 45.0-75.0 [facility] HospitalWhfupbuCDSTWGLKOO5632-81-03 05:21:00 Test Item Value Reference Range Interpretation Comments Lymphocytes # (test code = Lymphocytes 0.6 1.0-5.5 #) [facility] HospitalVgqywthJWLHWEUNXG5135-40-66 05:21:00 Test Item Value Reference Range Interpretation Comments Neutrophils # (test code = Neutrophils 6.6 1.5-8.1 #) [facility] HospitalLvpmngdLSHVZTSJKX2376-43-68 05:21:00 Test Item Value Reference Range Interpretation Comments Monocytes # (test code 0.2 See_Comment [Aut omated message] The = Monocytes #) system which generated this result tra nsmitted reference range : <=0.8. The reference r efren was not used to int erpret this result as normal/abnormal . [facility] HospitalDleomhwIVEJGYRDHG0168-16-95 05:21:00 Test Item Value Reference Range Interpretation Comments Basophils (test code = 0.1 See_Comment [Aut omated message] The Basophils) system which ge nerated this result tra nsmitted reference range : <=1.0. The reference r efren was not used to int erpret this result as normal/abnormal . [facility] HospitalZuvyfrtRYTVXTXCBV0176-73-76 05:21:00 Test Item Value Reference Range Interpretation Comments Monocytes (test code = Monocytes) 2.6 2.0-12.0 [facility] HospitalZntxkakDTNDFFRYHI8008-52-10 05:21:00 Test Item Value Reference Range Interpretation Comments Platelet (test code = Platelet) 179 133-450 [facility] CenterIyowjowJTNAOIVOII1060-77-30 05:21:00 Test Item Value Reference Range Interpretation Comments RDW (test code = RDW) 16.3 11.5-14.5 [facility] HospitalUdudphvSVTBOGTSIO5385-71-08 05:21:00 Test Item Value Reference Range Interpretation Comments MPV (test code = MPV) 7.8 7.4-10.4 [facility] HospitalKqwpbcwXXXCPWSTYB8301-02-96 05:21:00 Test Item Value Reference Range Interpretation Comments MCHC (test code = MCHC) 33.4 32.0-36.0 [facility] HospitalYvwbwjfLNZDCPPWDM5830-55-01 05:21:00 Test Item Value Reference Range Interpretation Comments MCV (test code = MCV) 90.7 80.0-94.0 [facility] HospitalEzhdsneBXENQQONTQ8493-73-68 05:21:00 Test Item Value Reference Range Interpretation Comments Hct (test code = Hct) 35.9 42.0-54.0 [facility] HospitalNflvcxbEWFXOFZRSD6711-03-47 05:21:00 Test Item Value Reference Range Interpretation Comments MCH (test code = MCH) 30.3 pg 27.0-31.0 [facility] CenterOwksakbVMMFBZRRCE5505-71-80 05:21:00 Test Item Value Reference Range Interpretation Comments Hgb (test code = Hgb) 12.0 14.0-18.0 [facility] CenterEhgzegdQYZEWZTJSH9355-85-47 05:21:00 Test Item Value Reference Range Interpretation Comments WBC (test code = WBC) 7.4 3.7-10.4 [facility] CenterPsuntctIHPUCOFYIZ5429-84-25 05:21:00 Test Item Value Reference Range Interpretation Comments RBC (test code = RBC) 3.96 4.70-6.10 [facility] CenterPARATHYROID ALFAPJG1894-66-97 05:21:00 Test Item Value Reference Range Interpretation Comments Ca Norm WB (test code = Ca Norm WB) 1.08 1.05-1.25 [facility] CenterPARATHYROID TLJSATI3280-18-25 05:21:00 Test Item Value Reference Range Interpretation Comments Ca Ion WB (test code = Ca Ion WB) 1.09 1.05-1.25 [facility] CenterCHEM FEWCH1180-04-91 05:21:00 Test Item Value Reference Range Interpretation Comments Phosphorus (test code = Phosphorus) 1.9 2.5-4.5 [facility]2019-03-22 05:21:00 Test Item Value Reference Range Interpretation Comments Magnesium Lvl (test code = Magnesium 1.4 1.8-2.4 Lvl) [facility] HospitalUgkiytlLIBSQKGYZO3441-10-68 05:21:00 Test Item Value Reference Range Interpretation Comments Lymphocytes (test code = Lymphocytes) 7.9 20.0-40.0 [facility] HospitalAsgclcnJVMMVCDLRM4835-16-73 05:21:00 Test Item Value Reference Range Interpretation Comments Segs (test code = Segs) 89.4 45.0-75.0 [facility] HospitalErgvzprQRPROOKCRP9491-87-77 05:21:00 Test Item Value Reference Range Interpretation Comments Lymphocytes # (test code = Lymphocytes 0.6 1.0-5.5 #) [facility] HospitalMlgphhnJPOXFOGNVN4394-25-06 05:21:00 Test Item Value Reference Range Interpretation Comments Neutrophils # (test code = Neutrophils 6.6 1.5-8.1 #) [facility] HospitalVqdlztbXFFXIZBDZB5948-28-59 05:21:00 Test Item Value Reference Range Interpretation Comments Monocytes # (test code 0.2 See_Comment [Aut omated message] The = Monocytes #) system which generated this result tra nsmitted reference range : <=0.8. The reference r efren was not used to int erpret this result as normal/abnormal . [facility] HospitalEftpbyxBMIKARIYOM2882-76-17 05:21:00 Test Item Value Reference Range Interpretation Comments Basophils (test code = 0.1 See_Comment [Aut omated message] The Basophils) system which ge nerated this result tra nsmitted reference range : <=1.0. The reference r efren was not used to int erpret this result as normal/abnormal . [facility] HospitalIulkyxbNQFGMAJARW7285-21-43 05:21:00 Test Item Value Reference Range Interpretation Comments Monocytes (test code = Monocytes) 2.6 2.0-12.0 [facility] HospitalFvamzwlZXIESLITST7124-18-52 05:21:00 Test Item Value Reference Range Interpretation Comments Platelet (test code = Platelet) 179 133-450 [facility] HospitalMsheledOPHYSIAAQP6596-73-70 05:21:00 Test Item Value Reference Range Interpretation Comments RDW (test code = RDW) 16.3 11.5-14.5 [facility] HospitalDgbwtyuFBBVXHBPJM6727-41-23 05:21:00 Test Item Value Reference Range Interpretation Comments MPV (test code = MPV) 7.8 7.4-10.4 [facility] HospitalZjvbijcJQDLVDPERY2329-19-49 05:21:00 Test Item Value Reference Range Interpretation Comments MCHC (test code = MCHC) 33.4 32.0-36.0 [facility] HospitalDlvqmpbPBLQSJAKES2708-73-34 05:21:00 Test Item Value Reference Range Interpretation Comments MCV (test code = MCV) 90.7 80.0-94.0 [facility] HospitalJgbeqpvHGSVXMZESO9062-05-24 05:21:00 Test Item Value Reference Range Interpretation Comments Hct (test code = Hct) 35.9 42.0-54.0 [facility] HospitalFfjcehbNATLWORMNY6518-90-31 05:21:00 Test Item Value Reference Range Interpretation Comments MCH (test code = MCH) 30.3 pg 27.0-31.0 [facility] HospitalGdfdaaoCYNDMWVPMW2067-72-73 05:21:00 Test Item Value Reference Range Interpretation Comments Hgb (test code = Hgb) 12.0 14.0-18.0 [facility] HospitalSffjtgeAKZRFOIOAR6482-71-68 05:21:00 Test Item Value Reference Range Interpretation Comments WBC (test code = WBC) 7.4 3.7-10.4 [facility] HospitalRaabzjwFHMIIUXZKM7631-57-32 05:21:00 Test Item Value Reference Range Interpretation Comments RBC (test code = RBC) 3.96 4.70-6.10 [facility] CenterPARATHYROID HKTWSRX5272-53-67 05:21:00 Test Item Value Reference Range Interpretation Comments Ca Norm WB (test code = Ca Norm WB) 1.08 1.05-1.25 [facility] CenterPARATHYROID SOGOFEC1868-24-63 05:21:00 Test Item Value Reference Range Interpretation Comments Ca Ion WB (test code = Ca Ion WB) 1.09 1.05-1.25 [facility] CenterCHEM LJWPU2946-20-95 05:21:00 Test Item Value Reference Range Interpretation Comments Phosphorus (test code = Phosphorus) 1.9 2.5-4.5 [facility] CenterCHE[facility] QEMPW0754-32-68 05:21:00 Test Item Value Reference Range Interpretation Comments Magnesium Lvl (test code = Magnesium 1.4 1.8-2.4 Lvl) [facility] HospitalXsivppbUPKJOOJEJS2587-08-32 05:21:00 Test Item Value Reference Range Interpretation Comments Lymphocytes (test code = Lymphocytes) 7.9 20.0-40.0 [facility] HospitalVuveihzDGWMINKIAE7641-53-21 05:21:00 Test Item Value Reference Range Interpretation Comments Segs (test code = Segs) 89.4 45.0-75.0 [facility] HospitalKnyzfwbIKAKZMKODS0466-61-23 05:21:00 Test Item Value Reference Range Interpretation Comments Lymphocytes # (test code = Lymphocytes 0.6 1.0-5.5 #) [facility] HospitalCowmnprWUDUSYSFQC2811-89-41 05:21:00 Test Item Value Reference Range Interpretation Comments Neutrophils # (test code = Neutrophils 6.6 1.5-8.1 #) [facility] HospitalLcebtuhUOFELUECDA6094-87-16 05:21:00 Test Item Value Reference Range Interpretation Comments Monocytes # (test code 0.2 See_Comment [Aut omated message] The = Monocytes #) system which generated this result tra nsmitted reference range : <=0.8. The reference r efren was not used to int erpret this result as normal/abnormal . [facility] HospitalJaqxqyjEABFAQCAZA6939-36-24 05:21:00 Test Item Value Reference Range Interpretation Comments Basophils (test code = 0.1 See_Comment [Aut omated message] The Basophils) system which ge nerated this result tra nsmitted reference range : <=1.0. The reference r efren was not used to int erpret this result as normal/abnormal . [facility] HospitalQtwmmscLWTSKCMHBT0124-35-73 05:21:00 Test Item Value Reference Range Interpretation Comments Monocytes (test code = Monocytes) 2.6 2.0-12.0 [facility] HospitalUanrbhgFRFHAXVDBQ9166-68-90 05:21:00 Test Item Value Reference Range Interpretation Comments Platelet (test code = Platelet) 179 133-450 [facility] HospitalVmrunmqOZNWYSQCUB6241-73-43 05:21:00 Test Item Value Reference Range Interpretation Comments RDW (test code = RDW) 16.3 11.5-14.5 [facility] HospitalYxeuhzyPRYUHNXOUS9055-42-65 05:21:00 Test Item Value Reference Range Interpretation Comments MPV (test code = MPV) 7.8 7.4-10.4 [facility] HospitalHcduamlKALRKJYHMP9762-32-52 05:21:00 Test Item Value Reference Range Interpretation Comments MCHC (test code = MCHC) 33.4 32.0-36.0 [facility] HospitalKncleuvRLSCKGXEQL5559-93-73 05:21:00 Test Item Value Reference Range Interpretation Comments MCV (test code = MCV) 90.7 80.0-94.0 [facility] HospitalYcjyuygMEMZKOXPUV0997-30-08 05:21:00 Test Item Value Reference Range Interpretation Comments Hct (test code = Hct) 35.9 42.0-54.0 [facility] HospitalGucjycmROESQUSLER5777-36-63 05:21:00 Test Item Value Reference Range Interpretation Comments MCH (test code = MCH) 30.3 pg 27.0-31.0 [facility]H2i [facility] [id number] 05:21:00 Test Item Value Reference Range Interpretation Comments Phosphorus (test code = Phosphorus) 1.9 2.5-4.5 [facility]2019-03-22 05:21:00 Test Item Value Reference Range Interpretation Comments Magnesium Lvl (test code = Magnesium 1.4 1.8-2.4 Lvl) [facility] HospitalFklahviAVNNDVEHIA9279-99-39 05:21:00 Test Item Value Reference Range Interpretation Comments Lymphocytes (test code = Lymphocytes) 7.9 20.0-40.0 [facility] HospitalZolekjoXRRYDGJKAQ0832-10-09 05:21:00 Test Item Value Reference Range Interpretation Comments Segs (test code = Segs) 89.4 45.0-75.0 [facility] HospitalLrbofmqIFFAVFAALZ8871-56-48 05:21:00 Test Item Value Reference Range Interpretation Comments Hgb (test code = Hgb) 12.0 14.0-18.0 [facility] HospitalBoipgcqTVCDHNDIZU5447-00-58 05:21:00 Test Item Value Reference Range Interpretation Comments Lymphocytes # (test code = Lymphocytes 0.6 1.0-5.5 #) [facility] HospitalTcidtalJQSCHMGKWA3523-16-79 05:21:00 Test Item Value Reference Range Interpretation Comments Neutrophils # (test code = Neutrophils 6.6 1.5-8.1 #) [facility] HospitalWdffrynQDDQYNOJND7010-02-19 05:21:00 Test Item Value Reference Range Interpretation Comments Monocytes # (test code 0.2 See_Comment [Aut omated message] The = Monocytes #) system which generated this result tra nsmitted reference range : <=0.8. The reference r efren was not used to int erpret this result as normal/abnormal . [facility] HospitalXdmrqajQSMKIGTIZU6392-79-95 05:21:00 Test Item Value Reference Range Interpretation Comments Basophils (test code = 0.1 See_Comment [Aut omated message] The Basophils) system which ge nerated this result tra nsmitted reference range : <=1.0. The reference r efren was not used to int erpret this result as normal/abnormal . [facility] HospitalRdddgwdYCUSIJKVME0491-01-57 05:21:00 Test Item Value Reference Range Interpretation Comments Monocytes (test code = Monocytes) 2.6 2.0-12.0 [facility] HospitalHqavhubJVNPURAYXD2173-80-77 05:21:00 Test Item Value Reference Range Interpretation Comments Platelet (test code = Platelet) 179 133-450 [facility] HospitalSfiyxszHVKVGAEDZB9985-02-58 05:21:00 Test Item Value Reference Range Interpretation Comments RDW (test code = RDW) 16.3 11.5-14.5 [facility] HospitalQfjjzqxFKVHMRCRRA5139-05-49 05:21:00 Test Item Value Reference Range Interpretation Comments MPV (test code = MPV) 7.8 7.4-10.4 [facility] HospitalTcztoiiZPEYEDRHHC2476-98-09 05:21:00 Test Item Value Reference Range Interpretation Comments MCHC (test code = MCHC) 33.4 32.0-36.0 [facility] HospitalWxictfkUIWXWAIQXM0149-42-43 05:21:00 Test Item Value Reference Range Interpretation Comments MCV (test code = MCV) 90.7 80.0-94.0 [facility] HospitalJguyfreTMNYLEYKJT1852-57-13 05:21:00 Test Item Value Reference Range Interpretation Comments WBC (test code = WBC) 7.4 3.7-10.4 [facility] HospitalCnptxzlYPFPIDFOZN3864-39-45 05:21:00 Test Item Value Reference Range Interpretation Comments Hct (test code = Hct) 35.9 42.0-54.0 [facility] HospitalCgkqngnOERYNBLKWN5689-26-81 05:21:00 Test Item Value Reference Range Interpretation Comments MCH (test code = MCH) 30.3 pg 27.0-31.0 [facility] HospitalYolhqonCPLYKEEIZM5840-56-91 05:21:00 Test Item Value Reference Range Interpretation Comments Hgb (test code = Hgb) 12.0 14.0-18.0 [facility] HospitalDpbyjxwFMDZWZCLRC1695-57-47 05:21:00 Test Item Value Reference Range Interpretation Comments WBC (test code = WBC) 7.4 3.7-10.4 [facility] HospitalMvaabkdFUOCVGIUXV6920-63-29 05:21:00 Test Item Value Reference Range Interpretation Comments RBC (test code = RBC) 3.96 4.70-6.10 [facility]2019-03-22 05:21:00 Test Item Value Reference Range Interpretation Comments Ca Norm WB (test code = Ca Norm WB) 1.08 1.05-1.25 [facility]2019-03-22 05:21:00 Test Item Value Reference Range Interpretation Comments Ca Ion WB (test code = Ca Ion WB) 1.09 1.05-1.25 [facility] HospitalHqsweemASNAGKKGCY4385-90-19 05:21:00 Test Item Value Reference Range Interpretation Comments RBC (test code = RBC) 3.96 4.70-6.10 [facility]2019-03-22 05:21:00 Test Item Value Reference Range Interpretation Comments Ca Norm WB (test code = Ca Norm WB) 1.08 1.05-1.25 [facility]2019-03-22 05:21:00 Test Item Value Reference Range Interpretation Comments Ca Ion WB (test code = Ca Ion WB) 1.09 1.05-1.25 [facility]2019-03-22 05:21:00 Test Item Value Reference Range Interpretation Comments Phosphorus (test code = Phosphorus) 1.9 2.5-4.5 [facility]2019-03-22 05:21:00 Test Item Value Reference Range Interpretation Comments Magnesium Lvl (test code = Magnesium 1.4 1.8-2.4 Lvl) [facility] HospitalQtutejaBLADMIMGPK9927-59-82 05:21:00 Test Item Value Reference Range Interpretation Comments Lymphocytes (test code = Lymphocytes) 7.9 20.0-40.0 [facility] HospitalKqrdsgkNUPQQBXPPU9883-05-67 05:21:00 Test Item Value Reference Range Interpretation Comments Segs (test code = Segs) 89.4 45.0-75.0 [facility] HospitalImdriupBDFDHCBXMK5744-19-09 05:21:00 Test Item Value Reference Range Interpretation Comments Lymphocytes # (test code = Lymphocytes 0.6 1.0-5.5 #) [facility] HospitalMcmqwqmYEQIUDKBIP8299-98-65 05:21:00 Test Item Value Reference Range Interpretation Comments Neutrophils # (test code = Neutrophils 6.6 1.5-8.1 #) [facility] HospitalItitncbOYIIAKENOO4671-51-33 05:21:00 Test Item Value Reference Range Interpretation Comments Monocytes # (test code 0.2 See_Comment [Aut omated message] The = Monocytes #) system which generated this result tra nsmitted reference range : <=0.8. The reference r efren was not used to int erpret this result as normal/abnormal . [facility] HospitalLaopqnaHVQGWWOJAS5489-25-37 05:21:00 Test Item Value Reference Range Interpretation Comments Basophils (test code = 0.1 See_Comment [Aut omated message] The Basophils) system which ge nerated this result tra nsmitted reference range : <=1.0. The reference r efren was not used to int erpret this result as normal/abnormal . [facility] HospitalDgfvlbtEQRCOCFAXF6730-13-19 05:21:00 Test Item Value Reference Range Interpretation Comments Monocytes (test code = Monocytes) 2.6 2.0-12.0 [facility] HospitalOhfogvcJAUKAHHMNO1168-82-39 05:21:00 Test Item Value Reference Range Interpretation Comments Platelet (test code = Platelet) 179 133-450 [facility] HospitalMsifobhHVSLKICXNU9201-05-11 05:21:00 Test Item Value Reference Range Interpretation Comments RDW (test code = RDW) 16.3 11.5-14.5 [facility] HospitalDqsgwwuUTSEMZDSAJ2849-66-03 05:21:00 Test Item Value Reference Range Interpretation Comments MPV (test code = MPV) 7.8 7.4-10.4 [facility] HospitalRbnhydeDETPCDTSTS7876-48-91 05:21:00 Test Item Value Reference Range Interpretation Comments MCHC (test code = MCHC) 33.4 32.0-36.0 [facility] HospitalRsyutvpLZDPNVMNJO2819-66-57 05:21:00 Test Item Value Reference Range Interpretation Comments MCV (test code = MCV) 90.7 80.0-94.0 [facility] HospitalXestzqlSAEQXAHWGB9996-83-17 05:21:00 Test Item Value Reference Range Interpretation Comments Hct (test code = Hct) 35.9 42.0-54.0 [facility] GladwinIwpujtsUJQXDIMIID9240-83-42 05:21:00 Test Item Value Reference Range Interpretation Comments MCH (test code = MCH) 30.3 pg 27.0-31.0 [facility] HospitalDfyzhcoAVPCYNTLEH7887-18-54 05:21:00 Test Item Value Reference Range Interpretation Comments Hgb (test code = Hgb) 12.0 14.0-18.0 [facility] HospitalBkkowzkDEHZGPQTJD3811-47-33 05:21:00 Test Item Value Reference Range Interpretation Comments WBC (test code = WBC) 7.4 3.7-10.4 [facility] HospitalGhlagfhLKQVJCIUMY6931-85-52 05:21:00 Test Item Value Reference Range Interpretation Comments RBC (test code = RBC) 3.96 4.70-6.10 [facility] CenterPARATHYROID BPEJTYC7483-25-84 05:21:00 Test Item Value Reference Range Interpretation Comments Ca Norm WB (test code = Ca Norm WB) 1.08 1.05-1.25 [facility] VIDYGLV5105-42-26 05:21:00 Test Item Value Reference Range Interpretation Comments Ca Ion WB (test code = Ca Ion WB) 1.09 1.05-1.25 [facility] CenterCHEM EYVGJ4561-16-53 05:21:00 Test Item Value Reference Range Interpretation Comments Phosphorus (test code = Phosphorus) 1.9 2.5-4.5 [facility] CenterCHE[facility] MFWHZ9405-24-04 05:21:00 Test Item Value Reference Range Interpretation Comments Magnesium Lvl (test code = Magnesium 1.4 1.8-2.4 Lvl) [facility] HospitalDpvcjwhNCQMLGPUHW6593-52-05 05:21:00 Test Item Value Reference Range Interpretation Comments Lymphocytes (test code = Lymphocytes) 7.9 20.0-40.0 [facility] HospitalTypndpoXNEHBBFMUS5073-08-56 05:21:00 Test Item Value Reference Range Interpretation Comments Segs (test code = Segs) 89.4 45.0-75.0 [facility] HospitalPnteyjcFYRAMPIBKD5466-61-15 05:21:00 Test Item Value Reference Range Interpretation Comments Lymphocytes # (test code = Lymphocytes 0.6 1.0-5.5 #) [facility] HospitalXszvtquLQTPDRDIFH0576-57-74 05:21:00 Test Item Value Reference Range Interpretation Comments Neutrophils # (test code = Neutrophils 6.6 1.5-8.1 #) [facility] HospitalIppdewfSZIZQBFDIP9568-79-84 05:21:00 Test Item Value Reference Range Interpretation Comments Monocytes # (test code 0.2 See_Comment [Aut omated message] The = Monocytes #) system which generated this result tra nsmitted reference range : <=0.8. The reference r efren was not used to int erpret this result as normal/abnormal . [facility] HospitalZqdzwifGJORMPXCYZ7820-76-00 05:21:00 Test Item Value Reference Range Interpretation Comments Basophils (test code = 0.1 See_Comment [Aut omated message] The Basophils) system which ge nerated this result tra nsmitted reference range : <=1.0. The reference r efren was not used to int erpret this result as normal/abnormal . [facility] HospitalNbqayfgRZTHBFMKAD1844-85-59 05:21:00 Test Item Value Reference Range Interpretation Comments Monocytes (test code = Monocytes) 2.6 2.0-12.0 [facility] HospitalGwphrbuUICQOVWPRF6225-15-52 05:21:00 Test Item Value Reference Range Interpretation Comments Platelet (test code = Platelet) 179 133-450 [facility] HospitalOdlwsqbZUSLSUEBNT3714-30-36 05:21:00 Test Item Value Reference Range Interpretation Comments RDW (test code = RDW) 16.3 11.5-14.5 [facility] HospitalAuietafBSZNVCXQDP6669-07-03 05:21:00 Test Item Value Reference Range Interpretation Comments MPV (test code = MPV) 7.8 7.4-10.4 [facility] HospitalTizajhpESIGDKRARB9654-09-02 05:21:00 Test Item Value Reference Range Interpretation Comments MCHC (test code = MCHC) 33.4 32.0-36.0 [facility] HospitalTzdiiywQVZNGPNCRN0785-16-18 05:21:00 Test Item Value Reference Range Interpretation Comments MCV (test code = MCV) 90.7 80.0-94.0 [facility] HospitalChalzjkJXJORZWATT7171-13-16 05:21:00 Test Item Value Reference Range Interpretation Comments Hct (test code = Hct) 35.9 42.0-54.0 [facility] HospitalKxlpthcSONRLLDKMH3589-33-21 05:21:00 Test Item Value Reference Range Interpretation Comments MCH (test code = MCH) 30.3 pg 27.0-31.0 [facility] HospitalUhgsnovOFJMMDLFBG2733-88-06 05:21:00 Test Item Value Reference Range Interpretation Comments Hgb (test code = Hgb) 12.0 14.0-18.0 [facility] HospitalTrznjiqYQZPATNZKW5180-58-12 05:21:00 Test Item Value Reference Range Interpretation Comments WBC (test code = WBC) 7.4 3.7-10.4 [facility] HospitalTroxtnnKFATUZZFLO9119-64-99 05:21:00 Test Item Value Reference Range Interpretation Comments RBC (test code = RBC) 3.96 4.70-6.10 [facility]2019-03-22 05:21:00 Test Item Value Reference Range Interpretation Comments Ca Norm WB (test code = Ca Norm WB) 1.08 1.05-1.25 [facility]2019-03-22 05:21:00 Test Item Value Reference Range Interpretation Comments Ca Ion WB (test code = Ca Ion WB) 1.09 1.05-1.25 [facility] CenterCHE[facility] [id number] 05:21:00 Test Item Value Reference Range Interpretation Comments Phosphorus (test code = Phosphorus) 1.9 2.5-4.5 [facility] CenterCHE[facility] RZPBY0301-86-18 05:21:00 Test Item Value Reference Range Interpretation Comments Magnesium Lvl (test code = Magnesium 1.4 1.8-2.4 Lvl) [facility] HospitalTshptwvJVHZUMXEOE8732-32-07 05:21:00 Test Item Value Reference Range Interpretation Comments Lymphocytes (test code = Lymphocytes) 7.9 20.0-40.0 [facility] HospitalOdraxmfIXULIFLQRJ6422-78-28 05:21:00 Test Item Value Reference Range Interpretation Comments Segs (test code = Segs) 89.4 45.0-75.0 [facility] HospitalBcsyleiVADUMCXOHQ0412-34-44 05:21:00 Test Item Value Reference Range Interpretation Comments Lymphocytes # (test code = Lymphocytes 0.6 1.0-5.5 #) [facility] HospitalXzjcjqdFEJRRCFXLJ4126-36-24 05:21:00 Test Item Value Reference Range Interpretation Comments Neutrophils # (test code = Neutrophils 6.6 1.5-8.1 #) [facility] HospitalCkondepMRFFXDCYCM3318-52-91 05:21:00 Test Item Value Reference Range Interpretation Comments Monocytes # (test code 0.2 See_Comment [Aut omated message] The = Monocytes #) system which generated this result tra nsmitted reference range : <=0.8. The reference r efren was not used to int erpret this result as normal/abnormal . [facility] HospitalDumxrgnGXEBEGDYFQ8391-66-70 05:21:00 Test Item Value Reference Range Interpretation Comments Basophils (test code = 0.1 See_Comment [Aut omated message] The Basophils) system which ge nerated this result tra nsmitted reference range : <=1.0. The reference r efren was not used to int erpret this result as normal/abnormal . [facility] HospitalRapmsevEZSTUSXBLX1718-83-57 05:21:00 Test Item Value Reference Range Interpretation Comments Monocytes (test code = Monocytes) 2.6 2.0-12.0 [facility] HospitalNocbjycAZEKXNJRFM9921-89-76 05:21:00 Test Item Value Reference Range Interpretation Comments Platelet (test code = Platelet) 179 133-450 [facility] HospitalGqijynsDPCHWLIZGH1982-98-35 05:21:00 Test Item Value Reference Range Interpretation Comments RDW (test code = RDW) 16.3 11.5-14.5 [facility] HospitalYluwcpbELPCCKKMJH4923-34-56 05:21:00 Test Item Value Reference Range Interpretation Comments MPV (test code = MPV) 7.8 7.4-10.4 [facility] HospitalOuqnqdkBLIOSKCHCB1656-92-01 05:21:00 Test Item Value Reference Range Interpretation Comments MCHC (test code = MCHC) 33.4 32.0-36.0 [facility] HospitalUbwfjheUFOWNYYZAA1540-61-46 05:21:00 Test Item Value Reference Range Interpretation Comments MCV (test code = MCV) 90.7 80.0-94.0 [facility] HospitalDhiintlNITXODMYAY6688-57-06 05:21:00 Test Item Value Reference Range Interpretation Comments Hct (test code = Hct) 35.9 42.0-54.0 [facility] HospitalQjmxcamLENMQWQKQY2676-81-63 05:21:00 Test Item Value Reference Range Interpretation Comments MCH (test code = MCH) 30.3 pg 27.0-31.0 [facility] HospitalPvmgqezZXRFVDBMIE9708-86-85 05:21:00 Test Item Value Reference Range Interpretation Comments Hgb (test code = Hgb) 12.0 14.0-18.0 [facility] HospitalXhrdztgPZWOOVSCOM3183-37-54 05:21:00 Test Item Value Reference Range Interpretation Comments WBC (test code = WBC) 7.4 3.7-10.4 [facility] HospitalWztqvxsMOBGLZRHHM8406-23-38 05:21:00 Test Item Value Reference Range Interpretation Comments RBC (test code = RBC) 3.96 4.70-6.10 [facility]2019-03-22 05:21:00 Test Item Value Reference Range Interpretation Comments Ca Norm WB (test code = Ca Norm WB) 1.08 1.05-1.25 [facility]2019-03-22 05:21:00 Test Item Value Reference Range Interpretation Comments Ca Ion WB (test code = Ca Ion WB) 1.09 1.05-1.25 [facility]2019-03-22 05:21:00 Test Item Value Reference Range Interpretation Comments Phosphorus (test code = Phosphorus) 1.9 2.5-4.5 [facility]2019-03-22 05:21:00 Test Item Value Reference Range Interpretation Comments Magnesium Lvl (test code = Magnesium 1.4 1.8-2.4 Lvl) [facility] HospitalZbedydnVILRRBWRGK4159-44-21 05:21:00 Test Item Value Reference Range Interpretation Comments Lymphocytes (test code = Lymphocytes) 7.9 20.0-40.0 [facility] HospitalMlpqsenDXLWTFBFAU7109-39-80 05:21:00 Test Item Value Reference Range Interpretation Comments Segs (test code = Segs) 89.4 45.0-75.0 [facility] HospitalJgieegpYKEPQJHSRY8591-18-24 05:21:00 Test Item Value Reference Range Interpretation Comments Lymphocytes # (test code = Lymphocytes 0.6 1.0-5.5 #) [facility] HospitalQscctllTPWLJOACPE9122-02-14 05:21:00 Test Item Value Reference Range Interpretation Comments Neutrophils # (test code = Neutrophils 6.6 1.5-8.1 #) [facility] HospitalBzsdaebEQCWSDDNCI7714-47-42 05:21:00 Test Item Value Reference Range Interpretation Comments Monocytes # (test code 0.2 See_Comment [Aut omated message] The = Monocytes #) system which generated this result tra nsmitted reference range : <=0.8. The reference r efren was not used to int erpret this result as normal/abnormal . [facility] HospitalGcvwkrmFIKVIXGHLH1847-81-21 05:21:00 Test Item Value Reference Range Interpretation Comments Basophils (test code = 0.1 See_Comment [Aut omated message] The Basophils) system which ge nerated this result tra nsmitted reference range : <=1.0. The reference r efren was not used to int erpret this result as normal/abnormal . [facility] HospitalDxrkvaxTBFQEUBYWO0085-26-23 05:21:00 Test Item Value Reference Range Interpretation Comments Monocytes (test code = Monocytes) 2.6 2.0-12.0 [facility] HospitalHheanthQTVLIVBRZW7337-10-23 05:21:00 Test Item Value Reference Range Interpretation Comments Platelet (test code = Platelet) 179 133-450 [facility] HospitalOjssmiwGXUJZELGXO3836-96-47 05:21:00 Test Item Value Reference Range Interpretation Comments RDW (test code = RDW) 16.3 11.5-14.5 [facility] HospitalJxbepupPZYIJQFXXV6356-41-84 05:21:00 Test Item Value Reference Range Interpretation Comments MPV (test code = MPV) 7.8 7.4-10.4 [facility] HospitalNxnimtjDRPJRYLYRR7649-80-29 05:21:00 Test Item Value Reference Range Interpretation Comments MCHC (test code = MCHC) 33.4 32.0-36.0 [facility] HospitalEawfgrcNWSHMDXPNX8465-25-96 05:21:00 Test Item Value Reference Range Interpretation Comments MCV (test code = MCV) 90.7 80.0-94.0 [facility] HospitalUbjfiowAUNIIVSNBK8878-06-09 05:21:00 Test Item Value Reference Range Interpretation Comments Hct (test code = Hct) 35.9 42.0-54.0 [facility] HospitalCiwntsvPENXFSHWRP8254-29-88 05:21:00 Test Item Value Reference Range Interpretation Comments MCH (test code = MCH) 30.3 pg 27.0-31.0 [facility] HospitalJelmsvuTVXYMLRDBM4529-38-83 05:21:00 Test Item Value Reference Range Interpretation Comments Hgb (test code = Hgb) 12.0 14.0-18.0 [facility] HospitalEtxikjxDDPQFGFHAL1990-15-00 05:21:00 Test Item Value Reference Range Interpretation Comments WBC (test code = WBC) 7.4 3.7-10.4 [facility] HospitalNdxuaboYFLNVXTCFJ2959-08-41 05:21:00 Test Item Value Reference Range Interpretation Comments RBC (test code = RBC) 3.96 4.70-6.10 [facility]2019-03-22 05:21:00 Test Item Value Reference Range Interpretation Comments Ca Norm WB (test code = Ca Norm WB) 1.08 1.05-1.25 [facility]2019-03-22 05:21:00 Test Item Value Reference Range Interpretation Comments Ca Ion WB (test code = Ca Ion WB) 1.09 1.05-1.25 [facility] MGIWL3691-83-69 05:21:00 Test Item Value Reference Range Interpretation Comments Phosphorus (test code = Phosphorus) 1.9 2.5-4.5 [facility] [id number] 05:21:00 Test Item Value Reference Range Interpretation Comments Magnesium Lvl (test code = Magnesium 1.4 1.8-2.4 Lvl) [facility] HospitalDtcbaoxJWURWMOFHJ4515-78-63 05:21:00 Test Item Value Reference Range Interpretation Comments Lymphocytes (test code = Lymphocytes) 7.9 20.0-40.0 [facility] HospitalMbpbtjrDUQGDUSXUB9131-71-73 05:21:00 Test Item Value Reference Range Interpretation Comments Segs (test code = Segs) 89.4 45.0-75.0 [facility] HospitalNdbfptgPBWRQOJSXL9239-18-59 05:21:00 Test Item Value Reference Range Interpretation Comments Lymphocytes # (test code = Lymphocytes 0.6 1.0-5.5 #) [facility] HospitalPtsdgteFVSYUECRBK7635-39-72 05:21:00 Test Item Value Reference Range Interpretation Comments Neutrophils # (test code = Neutrophils 6.6 1.5-8.1 #) [facility] HospitalDdhvctvPIXXCSVBYM3784-07-34 05:21:00 Test Item Value Reference Range Interpretation Comments Monocytes # (test code 0.2 See_Comment [Aut omated message] The = Monocytes #) system which generated this result tra nsmitted reference range : <=0.8. The reference r efren was not used to int erpret this result as normal/abnormal . [facility] HospitalNyzyhnsBEWNNIWUGM0579-77-41 05:21:00 Test Item Value Reference Range Interpretation Comments Basophils (test code = 0.1 See_Comment [Aut omated message] The Basophils) system which ge nerated this result tra nsmitted reference range : <=1.0. The reference r efren was not used to int erpret this result as normal/abnormal . [facility] HospitalHuudxltBLCCIQSEMT1982-07-70 05:21:00 Test Item Value Reference Range Interpretation Comments Monocytes (test code = Monocytes) 2.6 2.0-12.0 [facility] HospitalOkvmdkaCHMCATDYNF2823-98-09 05:21:00 Test Item Value Reference Range Interpretation Comments Platelet (test code = Platelet) 179 133-450 [facility] HospitalSkpatnrANCSDJULJS7256-49-85 05:21:00 Test Item Value Reference Range Interpretation Comments RDW (test code = RDW) 16.3 11.5-14.5 [facility] HospitalYhggfnfWLGVBYNBFL9577-09-00 05:21:00 Test Item Value Reference Range Interpretation Comments MPV (test code = MPV) 7.8 7.4-10.4 [facility] HospitalGrxcazpWNHYABIZNC2491-00-73 05:21:00 Test Item Value Reference Range Interpretation Comments MCHC (test code = MCHC) 33.4 32.0-36.0 [facility] HospitalEawzersWODAXACSLR3028-46-90 05:21:00 Test Item Value Reference Range Interpretation Comments MCV (test code = MCV) 90.7 80.0-94.0 [facility] HospitalIrtwearKRHHMVMMLK7455-21-35 05:21:00 Test Item Value Reference Range Interpretation Comments Hct (test code = Hct) 35.9 42.0-54.0 [facility] HospitalYfbqyxmDALROGDNNP3971-10-05 05:21:00 Test Item Value Reference Range Interpretation Comments MCH (test code = MCH) 30.3 pg 27.0-31.0 [facility] H[id number] 05:21:00 Test Item Value Reference Range Interpretation Comments Hgb (test code = Hgb) 12.0 14.0-18.0 [facility] Ho[id number] 05:21:00 Test Item Value Reference Range Interpretation Comments WBC (test code = WBC) 7.4 3.7-10.4 [facility] Ho[id number] 05:21:00 Test Item Value Reference Range Interpretation Comments RBC (test code = RBC) 3.96 4.70-6.10 [facility]PAR[facility] [id number] 05:21:00 Test Item Value Reference Range Interpretation Comments Ca Norm WB (test code = Ca Norm WB) 1.08 1.05-1.25 [facility] CenterPARATHYROID [id number] 05:21:00 Test Item Value Reference Range Interpretation Comments Ca Ion WB (test code = Ca Ion WB) 1.09 1.05-1.25 [facility] CenterCHEM [id number] 05:21:00 Test Item Value Reference Range Interpretation Comments Phosphorus (test code = Phosphorus) 1.9 2.5-4.5 [facility] [id number] 05:21:00 Test Item Value Reference Range Interpretation Comments Magnesium Lvl (test code = Magnesium 1.4 1.8-2.4 Lvl) [facility] HospitalGniypdyHOFFZNPIGP9337-26-03 05:21:00 Test Item Value Reference Range Interpretation Comments Lymphocytes (test code = Lymphocytes) 7.9 20.0-40.0 [facility] Hos[id number] 05:21:00 Test Item Value Reference Range Interpretation Comments Segs (test code = Segs) 89.4 45.0-75.0 [facility] Hos[id number] 05:21:00 Test Item Value Reference Range Interpretation Comments Lymphocytes # (test code = Lymphocytes 0.6 1.0-5.5 #) [facility] HospitalBzwulxuBPTTBJTFJC3816-23-93 05:21:00 Test Item Value Reference Range Interpretation Comments Neutrophils # (test code = Neutrophils 6.6 1.5-8.1 #) [facility] H[id number] 05:21:00 Test Item Value Reference Range Interpretation Comments Monocytes # (test code 0.2 See_Comment [Aut omated message] The = Monocytes #) system which generated this result tra nsmitted reference range : <=0.8. The reference r efren was not used to int erpret this result as normal/abnormal . [facility] HospitalGjfuppeONBDNUNUPN6301-30-58 05:21:00 Test Item Value Reference Range Interpretation Comments Basophils (test code = 0.1 See_Comment [Aut omated message] The Basophils) system which ge nerated this result tra nsmitted reference range : <=1.0. The reference r efren was not used to int erpret this result as normal/abnormal . [facility] HospitalHvtbviaGUFLXTUUEP4975-64-06 05:21:00 Test Item Value Reference Range Interpretation Comments Monocytes (test code = Monocytes) 2.6 2.0-12.0 [facility] HospitalKarlvthMKXKBEMSVN3942-74-15 05:21:00 Test Item Value Reference Range Interpretation Comments Platelet (test code = Platelet) 179 133-450 [facility] HospitalLznyjnwUTTKTTUVYP5830-52-32 05:21:00 Test Item Value Reference Range Interpretation Comments RDW (test code = RDW) 16.3 11.5-14.5 [facility] HospitalTuzchjiXJHZEATSCQ8923-69-09 05:21:00 Test Item Value Reference Range Interpretation Comments MPV (test code = MPV) 7.8 7.4-10.4 [facility] HospitalMbvgdopLQSZTXLRLW3760-09-68 05:21:00 Test Item Value Reference Range Interpretation Comments MCHC (test code = MCHC) 33.4 32.0-36.0 [facility] HospitalGfmjkwaZLFXGWSDVB6819-97-12 05:21:00 Test Item Value Reference Range Interpretation Comments MCV (test code = MCV) 90.7 80.0-94.0 [facility] HospitalNaaogwjUHZZTLWQMW6959-93-63 05:21:00 Test Item Value Reference Range Interpretation Comments Hct (test code = Hct) 35.9 42.0-54.0 [facility] H[id number] 05:21:00 Test Item Value Reference Range Interpretation Comments MCH (test code = MCH) 30.3 pg 27.0-31.0 [facility] HospitalZtnbhhwJXXSZEISFA5672-25-78 05:21:00 Test Item Value Reference Range Interpretation Comments Hgb (test code = Hgb) 12.0 14.0-18.0 [facility] HospitalX[id number] 05:21:00 Test Item Value Reference Range Interpretation Comments WBC (test code = WBC) 7.4 3.7-10.4 [facility] H[id number] 05:21:00 Test Item Value Reference Range Interpretation Comments RBC (test code = RBC) 3.96 4.70-6.10 [facility] [id number] 05:21:00 Test Item Value Reference Range Interpretation Comments Ca Norm WB (test code = Ca Norm WB) 1.08 1.05-1.25 [facility]2019-03-22 05:21:00 Test Item Value Reference Range Interpretation Comments Ca Ion WB (test code = Ca Ion WB) 1.09 1.05-1.25 [facility]2019-03-22 05:21:00 Test Item Value Reference Range Interpretation Comments Phosphorus (test code = Phosphorus) 1.9 2.5-4.5 [facility] [id number] 05:21:00 Test Item Value Reference Range Interpretation Comments Magnesium Lvl (test code = Magnesium 1.4 1.8-2.4 Lvl) [facility] HospitalJrvfootJDCQICHDBG5249-73-91 05:21:00 Test Item Value Reference Range Interpretation Comments Lymphocytes (test code = Lymphocytes) 7.9 20.0-40.0 [facility] HospitalXbbbdqiHCKTHBKXDV4035-52-89 05:21:00 Test Item Value Reference Range Interpretation Comments Segs (test code = Segs) 89.4 45.0-75.0 [facility] HospitalHxpktjvDIAYXVDCCJ9908-86-05 05:21:00 Test Item Value Reference Range Interpretation Comments Lymphocytes # (test code = Lymphocytes 0.6 1.0-5.5 #) [facility] HospitalBqbteagLWYRVCACNQ4830-60-34 05:21:00 Test Item Value Reference Range Interpretation Comments Neutrophils # (test code = Neutrophils 6.6 1.5-8.1 #) [facility] HospitalZnldrfgKICYNZJDWZ1349-62-17 05:21:00 Test Item Value Reference Range Interpretation Comments Monocytes # (test code 0.2 See_Comment [Aut omated message] The = Monocytes #) system which generated this result tra nsmitted reference range : <=0.8. The reference r efren was not used to int erpret this result as normal/abnormal . [facility] HospitalInojoaaKMGMJRZMYS1501-98-86 05:21:00 Test Item Value Reference Range Interpretation Comments Basophils (test code = 0.1 See_Comment [Aut omated message] The Basophils) system which ge nerated this result tra nsmitted reference range : <=1.0. The reference r efren was not used to int erpret this result as normal/abnormal . [facility] HospitalLeheelnIDJLPKZXQP3608-32-59 05:21:00 Test Item Value Reference Range Interpretation Comments Monocytes (test code = Monocytes) 2.6 2.0-12.0 [facility] HospitalEnpyxsuLGQSFNMXDB0052-14-54 05:21:00 Test Item Value Reference Range Interpretation Comments Platelet (test code = Platelet) 179 133-450 [facility] HospitalZbmlxruIZGVLHTODC1375-81-26 05:21:00 Test Item Value Reference Range Interpretation Comments RDW (test code = RDW) 16.3 11.5-14.5 [facility] HospitalJoupfanQILTNNDRCL8643-16-94 05:21:00 Test Item Value Reference Range Interpretation Comments MPV (test code = MPV) 7.8 7.4-10.4 [facility] HospitalJfhngqgAUAPRNNLIS1235-84-05 05:21:00 Test Item Value Reference Range Interpretation Comments MCHC (test code = MCHC) 33.4 32.0-36.0 [facility] H[id number] 05:21:00 Test Item Value Reference Range Interpretation Comments MCV (test code = MCV) 90.7 80.0-94.0 [facility] HospitalCyffjqmKTHQRVGLDU3703-34-46 05:21:00 Test Item Value Reference Range Interpretation Comments Hct (test code = Hct) 35.9 42.0-54.0 [facility] HospitalPherbmoBKYKHFKYNN7450-97-76 05:21:00 Test Item Value Reference Range Interpretation Comments MCH (test code = MCH) 30.3 pg 27.0-31.0 [facility] HospitalVphhbkmAKZVCGYUTE9535-26-24 05:21:00 Test Item Value Reference Range Interpretation Comments Hgb (test code = Hgb) 12.0 14.0-18.0 [facility] HospitalJmuslfuHRVMFQCRNO4462-96-69 05:21:00 Test Item Value Reference Range Interpretation Comments WBC (test code = WBC) 7.4 3.7-10.4 [facility] H[id number] 05:21:00 Test Item Value Reference Range Interpretation Comments RBC (test code = RBC) 3.96 4.70-6.10 [facility]ATHY[facility] [id number] 05:21:00 Test Item Value Reference Range Interpretation Comments Ca Norm WB (test code = Ca Norm WB) 1.08 1.05-1.25 [facility] [id number] 05:21:00 Test Item Value Reference Range Interpretation Comments Ca Ion WB (test code = Ca Ion WB) 1.09 1.05-1.25 [facility] AND [id number] 01:58:00 Test Item Value Reference Range Interpretation Comments UA Spec Grav (test code = UA Spec 1.030 1 Grav) [facility] AND [id number] 01:58:00 Test Item Value Reference Range Interpretation Comments UA Turbidity (test code Marked *ABN*(06/28/18 = UA Turbidity) 8:58 PM) [facility] AND [id number] 01:58:00 Test Item Value Reference Range Interpretation Comments UA pH (test code = UA pH) 5.0 1 5.0-8.0 [facility] AND [id number] 01:58:00 Test Item Value Reference Range Interpretation Comments UA Bili (test code = Negative *NA*(06/28/18 UA Bili) 8:58 PM) [facility] AND [id number] 01:58:00 Test Item Value Reference Range Interpretation Comments UA Ketones (test code Negative *NA*(06/28/18 = UA Ketones) 8:58 PM) [facility] AND [id number] 01:58:00 Test Item Value Reference Range Interpretation Comments UA Color (test code = Yellow *NA*(06/28/18 UA Color) 8:58 PM) [facility] AND [id number] 01:58:00 Test Item Value Reference Range Interpretation Comments UA Blood (test code = Small *ABN*(06/28/18 UA Blood) 8:58 PM) [facility] AND [id number] 01:58:00 Test Item Value Reference Range Interpretation Comments UA Glucose (test code Negative *NA*(06/28/18 = UA Glucose) 8:58 PM) [facility] AND [id number] 01:58:00 Test Item Value Reference Range Interpretation Comments UA Protein (test code = UA Protein) 100 mg/dL [facility] AND [id number] 01:58:00 Test Item Value Reference Range Interpretation Comments UA WBC (test code = 1 See_Comment [Automa emory message] The UA WBC) system which ge nerated this result transmit emory reference range : <=5. The reference range was not used to interpr et this result as dori l/abnormal. [facility] AND [id number] 01:58:00 Test Item Value Reference Range Interpretation Comments UA Sq Epi (test code = None Seen (06/28/18 8:58 UA Sq Epi) PM) [facility] AND [id number] 01:58:00 Test Item Value Reference Range Interpretation Comments UA Leuk Est (test Moderate *ABN*(06/28/18 code = UA Leuk Est) 8:58 PM) [facility] [id number] 01:58:00 Test Item Value Reference Range Interpretation Comments UA Nitrite (test code Negative (06/28/18 8:58 = UA Nitrite) PM) [facility] [id number] 01:58:00 Test Item Value Reference Range Interpretation Comments UA Urobilinogen (test code = UA no gt 0.1-1.0 Urobilinogen) [facility] [id number] 01:58:00 Test Item Value Reference Range Interpretation Comments U Amph Scr (test code Negative *NA*(06/28/18 = U Amph Scr) 8:58 PM) [facility] [id number] 01:58:00 Test Item Value Reference Range Interpretation Comments U Benzodiaz Scr (test Negative *NA*(06/28/18 code = U Benzodiaz Scr) 8:58 PM) [facility] [id number] 01:58:00 Test Item Value Reference Range Interpretation Comments U Agnes Scr (test code Negative *NA*(06/28/18 = U Agnes Scr) 8:58 PM) [facility] [id number] 01:58:00 Test Item Value Reference Range Interpretation Comments U Cannab Scr (test Negative *NA*(06/28/18 code = U Cannab Scr) 8:58 PM) [facility] [id number] 01:58:00 Test Item Value Reference Range Interpretation Comments U Cocaine Scr (test Negative *NA*(06/28/18 code = U Cocaine Scr) 8:58 PM) [facility] [id number] 01:58:00 Test Item Value Reference Range Interpretation Comments UDS Note (test code = See Note *NA*(06/28/18 UDS Note) 8:58 PM) [facility] [id number] 01:58:00 Test Item Value Reference Range Interpretation Comments U Opiate Scr (test Negative *NA*(06/28/18 code = U Opiate Scr) 8:58 PM) [facility] [id number] 01:58:00 Test Item Value Reference Range Interpretation Comments U Phencyclidine Scr (test Negative code = U Phencyclidine *NA*(06/28/18 8:58 Scr) PM) [facility] AND [id number] 01:58:00 Test Item Value Reference Range Interpretation Comments UA RBC (test code = no gt See_Comment [Automa emory message] The UA RBC) system which ge nerated this result transmit emory reference range : <=2. The reference range was not used to interpr et this result as dori l/abnormal. [facility] AND [id number] 01:58:00 Test Item Value Reference Range Interpretation Comments UA Spec Grav (test code = UA Spec 1.030 1 Grav) [facility] AND [id number] 01:58:00 Test Item Value Reference Range Interpretation Comments UA Turbidity (test code Marked *ABN*(06/28/18 = UA Turbidity) 8:58 PM) [facility] AND [id number] 01:58:00 Test Item Value Reference Range Interpretation Comments UA pH (test code = UA pH) 5.0 1 5.0-8.0 [facility] AND [id number] 01:58:00 Test Item Value Reference Range Interpretation Comments UA Bili (test code = Negative *NA*(06/28/18 UA Bili) 8:58 PM) [facility] AND [id number] 01:58:00 Test Item Value Reference Range Interpretation Comments UA Ketones (test code Negative *NA*(06/28/18 = UA Ketones) 8:58 PM) [facility] AND [id number] 01:58:00 Test Item Value Reference Range Interpretation Comments UA Color (test code = Yellow *NA*(06/28/18 UA Color) 8:58 PM) [facility] AND [id number] 01:58:00 Test Item Value Reference Range Interpretation Comments UA Blood (test code = Small *ABN*(06/28/18 UA Blood) 8:58 PM) [facility] AND [id number] 01:58:00 Test Item Value Reference Range Interpretation Comments UA Glucose (test code Negative *NA*(06/28/18 = UA Glucose) 8:58 PM) [facility] AND [id number] 01:58:00 Test Item Value Reference Range Interpretation Comments UA Protein (test code = UA Protein) 100 mg/dL [facility] [id number] 01:58:00 Test Item Value Reference Range Interpretation Comments UA WBC (test code = 1 See_Comment [Automa emory message] The UA WBC) system which ge nerated this result transmit emory reference range : <=5. The reference range was not used to interpr et this result as dori l/abnormal. [facility] [id number] 01:58:00 Test Item Value Reference Range Interpretation Comments UA Sq Epi (test code = None Seen (06/28/18 8:58 UA Sq Epi) PM) [facility] [id number] 01:58:00 Test Item Value Reference Range Interpretation Comments UA Leuk Est (test Moderate *ABN*(06/28/18 code = UA Leuk Est) 8:58 PM) [facility] [id number] 01:58:00 Test Item Value Reference Range Interpretation Comments UA Nitrite (test code Negative (06/28/18 8:58 = UA Nitrite) PM) [facility] [id number] 01:58:00 Test Item Value Reference Range Interpretation Comments UA Urobilinogen (test code = UA no gt 0.1-1.0 Urobilinogen) [facility] [id number] 01:58:00 Test Item Value Reference Range Interpretation Comments U Amph Scr (test code Negative *NA*(06/28/18 = U Amph Scr) 8:58 PM) [facility] [id number] 01:58:00 Test Item Value Reference Range Interpretation Comments U Benzodiaz Scr (test Negative *NA*(06/28/18 code = U Benzodiaz Scr) 8:58 PM) [facility] [id number] 01:58:00 Test Item Value Reference Range Interpretation Comments U Agnes Scr (test code Negative *NA*(06/28/18 = U Agnes Scr) 8:58 PM) [facility] [id number] 01:58:00 Test Item Value Reference Range Interpretation Comments U Cannab Scr (test Negative *NA*(06/28/18 code = U Cannab Scr) 8:58 PM) [facility] [id number] 01:58:00 Test Item Value Reference Range Interpretation Comments U Cocaine Scr (test Negative *NA*(06/28/18 code = U Cocaine Scr) 8:58 PM) [facility] [id number] 01:58:00 Test Item Value Reference Range Interpretation Comments UDS Note (test code = See Note *NA*(06/28/18 UDS Note) 8:58 PM) [facility] [id number] 01:58:00 Test Item Value Reference Range Interpretation Comments U Opiate Scr (test Negative *NA*(06/28/18 code = U Opiate Scr) 8:58 PM) [facility] [id number] 01:58:00 Test Item Value Reference Range Interpretation Comments U Phencyclidine Scr (test Negative code = U Phencyclidine *NA*(06/28/18 8:58 Scr) PM) [facility] [id number] 01:58:00 Test Item Value Reference Range Interpretation Comments UA RBC (test code = no gt See_Comment [Automa emory message] The UA RBC) system which ge nerated this result transmit emory reference range : <=2. The reference range was not used to interpr et this result as dori l/abnormal. [facility] [id number] 01:58:00 Test Item Value Reference Range Interpretation Comments UA Spec Grav (test code = UA Spec 1.030 1 Grav) [facility] [id number] 01:58:00 Test Item Value Reference Range Interpretation Comments UA Turbidity (test code Marked *ABN*(06/28/18 = UA Turbidity) 8:58 PM) [facility] [id number] 01:58:00 Test Item Value Reference Range Interpretation Comments UA pH (test code = UA pH) 5.0 1 5.0-8.0 [facility] [id number] 01:58:00 Test Item Value Reference Range Interpretation Comments UA Bili (test code = Negative *NA*(06/28/18 UA Bili) 8:58 PM) [facility] [id number] 01:58:00 Test Item Value Reference Range Interpretation Comments UA Ketones (test code Negative *NA*(06/28/18 = UA Ketones) 8:58 PM) [facility] [id number] 01:58:00 Test Item Value Reference Range Interpretation Comments UA Color (test code = Yellow *NA*(06/28/18 UA Color) 8:58 PM) [facility] [id number] 01:58:00 Test Item Value Reference Range Interpretation Comments UA Blood (test code = Small *ABN*(06/28/18 UA Blood) 8:58 PM) [facility] [id number] 01:58:00 Test Item Value Reference Range Interpretation Comments UA Glucose (test code Negative *NA*(06/28/18 = UA Glucose) 8:58 PM) [facility] [id number] 01:58:00 Test Item Value Reference Range Interpretation Comments UA Protein (test code = UA Protein) 100 mg/dL [facility] [id number] 01:58:00 Test Item Value Reference Range Interpretation Comments UA WBC (test code = 1 See_Comment [Automa emory message] The UA WBC) system which ge nerated this result transmit emory reference range : <=5. The reference range was not used to interpr et this result as dori l/abnormal. [facility] [id number] 01:58:00 Test Item Value Reference Range Interpretation Comments UA Sq Epi (test code = None Seen (06/28/18 8:58 UA Sq Epi) PM) [facility] [id number] 01:58:00 Test Item Value Reference Range Interpretation Comments UA Leuk Est (test Moderate *ABN*(06/28/18 code = UA Leuk Est) 8:58 PM) [facility] [id number] 01:58:00 Test Item Value Reference Range Interpretation Comments UA Nitrite (test code Negative (06/28/18 8:58 = UA Nitrite) PM) [facility] [id number] 01:58:00 Test Item Value Reference Range Interpretation Comments UA Urobilinogen (test code = UA no gt 0.1-1.0 Urobilinogen) [facility] [id number] 01:58:00 Test Item Value Reference Range Interpretation Comments U Amph Scr (test code Negative *NA*(06/28/18 = U Amph Scr) 8:58 PM) [facility] [id number] 01:58:00 Test Item Value Reference Range Interpretation Comments U Benzodiaz Scr (test Negative *NA*(06/28/18 code = U Benzodiaz Scr) 8:58 PM) [facility] [id number] 01:58:00 Test Item Value Reference Range Interpretation Comments U Agnes Scr (test code Negative *NA*(06/28/18 = U Agnes Scr) 8:58 PM) [facility] [id number] 01:58:00 Test Item Value Reference Range Interpretation Comments U Cannab Scr (test Negative *NA*(06/28/18 code = U Cannab Scr) 8:58 PM) [facility] [id number] 01:58:00 Test Item Value Reference Range Interpretation Comments U Cocaine Scr (test Negative *NA*(06/28/18 code = U Cocaine Scr) 8:58 PM) [facility] [id number] 01:58:00 Test Item Value Reference Range Interpretation Comments UDS Note (test code = See Note *NA*(06/28/18 UDS Note) 8:58 PM) [facility] [id number] 01:58:00 Test Item Value Reference Range Interpretation Comments U Opiate Scr (test Negative *NA*(06/28/18 code = U Opiate Scr) 8:58 PM) [facility] [id number] 01:58:00 Test Item Value Reference Range Interpretation Comments U Phencyclidine Scr (test Negative code = U Phencyclidine *NA*(06/28/18 8:58 Scr) PM) [facility] [id number] 01:58:00 Test Item Value Reference Range Interpretation Comments UA RBC (test code = no gt See_Comment [Automa emory message] The UA RBC) system which ge nerated this result transmit emory reference range : <=2. The reference range was not used to interpr et this result as dori l/abnormal. [facility] [id number] 01:58:00 Test Item Value Reference Range Interpretation Comments UA Spec Grav (test code = UA Spec 1.030 1 Grav) [facility] [id number] 01:58:00 Test Item Value Reference Range Interpretation Comments UA Turbidity (test code Marked *ABN*(06/28/18 = UA Turbidity) 8:58 PM) [facility] AND [id number] 01:58:00 Test Item Value Reference Range Interpretation Comments UA pH (test code = UA pH) 5.0 1 5.0-8.0 [facility] AND [id number] 01:58:00 Test Item Value Reference Range Interpretation Comments UA Bili (test code = Negative *NA*(06/28/18 UA Bili) 8:58 PM) [facility] AND [id number] 01:58:00 Test Item Value Reference Range Interpretation Comments UA Ketones (test code Negative *NA*(06/28/18 = UA Ketones) 8:58 PM) [facility] AND [id number] 01:58:00 Test Item Value Reference Range Interpretation Comments UA Color (test code = Yellow *NA*(06/28/18 UA Color) 8:58 PM) [facility] AND [id number] 01:58:00 Test Item Value Reference Range Interpretation Comments UA Blood (test code = Small *ABN*(06/28/18 UA Blood) 8:58 PM) [facility] AND [id number] 01:58:00 Test Item Value Reference Range Interpretation Comments UA Glucose (test code Negative *NA*(06/28/18 = UA Glucose) 8:58 PM) [facility] AND [id number] 01:58:00 Test Item Value Reference Range Interpretation Comments UA Protein (test code = UA Protein) 100 mg/dL [facility] AND [id number] 01:58:00 Test Item Value Reference Range Interpretation Comments UA WBC (test code = 1 See_Comment [Automa emory message] The UA WBC) system which ge nerated this result transmit emory reference range : <=5. The reference range was not used to interpr et this result as dori l/abnormal. [facility] AND [id number] 01:58:00 Test Item Value Reference Range Interpretation Comments UA Sq Epi (test code = None Seen (06/28/18 8:58 UA Sq Epi) PM) [facility] AND [id number] 01:58:00 Test Item Value Reference Range Interpretation Comments UA Leuk Est (test Moderate *ABN*(06/28/18 code = UA Leuk Est) 8:58 PM) [facility] [facility] [id number] 01:58:00 Test Item Value Reference Range Interpretation Comments UA Nitrite (test code Negative (06/28/18 8:58 = UA Nitrite) PM) [facility] [id number] 01:58:00 Test Item Value Reference Range Interpretation Comments UA Urobilinogen (test code = UA no gt 0.1-1.0 Urobilinogen) [facility] [id number] 01:58:00 Test Item Value Reference Range Interpretation Comments U Amph Scr (test code Negative *NA*(06/28/18 = U Amph Scr) 8:58 PM) [facility] [id number] 01:58:00 Test Item Value Reference Range Interpretation Comments U Benzodiaz Scr (test Negative *NA*(06/28/18 code = U Benzodiaz Scr) 8:58 PM) [facility] [id number] 01:58:00 Test Item Value Reference Range Interpretation Comments U Agnes Scr (test code Negative *NA*(06/28/18 = U Agnes Scr) 8:58 PM) [facility] [id number] 01:58:00 Test Item Value Reference Range Interpretation Comments U Cannab Scr (test Negative *NA*(06/28/18 code = U Cannab Scr) 8:58 PM) [facility] [id number] 01:58:00 Test Item Value Reference Range Interpretation Comments U Cocaine Scr (test Negative *NA*(06/28/18 code = U Cocaine Scr) 8:58 PM) [facility] [id number] 01:58:00 Test Item Value Reference Range Interpretation Comments UDS Note (test code = See Note *NA*(06/28/18 UDS Note) 8:58 PM) [facility] [id number] 01:58:00 Test Item Value Reference Range Interpretation Comments U Opiate Scr (test Negative *NA*(06/28/18 code = U Opiate Scr) 8:58 PM) [facility] [id number] 01:58:00 Test Item Value Reference Range Interpretation Comments U Phencyclidine Scr (test Negative code = U Phencyclidine *NA*(06/28/18 8:58 Scr) PM) [facility] AND [id number] 01:58:00 Test Item Value Reference Range Interpretation Comments UA RBC (test code = no gt See_Comment [Automa emory message] The UA RBC) system which ge nerated this result transmit emory reference range : <=2. The reference range was not used to interpr et this result as dori l/abnormal. [facility] AND [id number] 01:58:00 Test Item Value Reference Range Interpretation Comments UA Spec Grav (test code = UA Spec 1.030 1 Grav) [facility] AND [id number] 01:58:00 Test Item Value Reference Range Interpretation Comments UA Turbidity (test code Marked *ABN*(06/28/18 = UA Turbidity) 8:58 PM) [facility] AND [id number] 01:58:00 Test Item Value Reference Range Interpretation Comments UA pH (test code = UA pH) 5.0 1 5.0-8.0 [facility] AND [id number] 01:58:00 Test Item Value Reference Range Interpretation Comments UA Bili (test code = Negative *NA*(06/28/18 UA Bili) 8:58 PM) [facility] AND [id number] 01:58:00 Test Item Value Reference Range Interpretation Comments UA Ketones (test code Negative *NA*(06/28/18 = UA Ketones) 8:58 PM) [facility] AND [id number] 01:58:00 Test Item Value Reference Range Interpretation Comments UA Color (test code = Yellow *NA*(06/28/18 UA Color) 8:58 PM) [facility] AND [id number] 01:58:00 Test Item Value Reference Range Interpretation Comments UA Blood (test code = Small *ABN*(06/28/18 UA Blood) 8:58 PM) [facility] AND [id number] 01:58:00 Test Item Value Reference Range Interpretation Comments UA Glucose (test code Negative *NA*(06/28/18 = UA Glucose) 8:58 PM) [facility] AND [id number] 01:58:00 Test Item Value Reference Range Interpretation Comments UA Protein (test code = UA Protein) 100 mg/dL [facility] [id number] 01:58:00 Test Item Value Reference Range Interpretation Comments UA WBC (test code = 1 See_Comment [Automa emory message] The UA WBC) system which ge nerated this result transmit emory reference range : <=5. The reference range was not used to interpr et this result as dori l/abnormal. [facility] [id number] 01:58:00 Test Item Value Reference Range Interpretation Comments UA Sq Epi (test code = None Seen (06/28/18 8:58 UA Sq Epi) PM) [facility] [id number] 01:58:00 Test Item Value Reference Range Interpretation Comments UA Leuk Est (test Moderate *ABN*(06/28/18 code = UA Leuk Est) 8:58 PM) [facility] AND [id number] 01:58:00 Test Item Value Reference Range Interpretation Comments UA Nitrite (test code Negative (06/28/18 8:58 = UA Nitrite) PM) [facility] AND [id number] 01:58:00 Test Item Value Reference Range Interpretation Comments UA Urobilinogen (test code = UA no gt 0.1-1.0 Urobilinogen) [facility] [id number] 01:58:00 Test Item Value Reference Range Interpretation Comments U Amph Scr (test code Negative *NA*(06/28/18 = U Amph Scr) 8:58 PM) [facility] [id number] 01:58:00 Test Item Value Reference Range Interpretation Comments U Benzodiaz Scr (test Negative *NA*(06/28/18 code = U Benzodiaz Scr) 8:58 PM) [facility] [id number] 01:58:00 Test Item Value Reference Range Interpretation Comments U Agnes Scr (test code Negative *NA*(06/28/18 = U Agnes Scr) 8:58 PM) [facility] [id number] 01:58:00 Test Item Value Reference Range Interpretation Comments U Cannab Scr (test Negative *NA*(06/28/18 code = U Cannab Scr) 8:58 PM) [facility] [id number] 01:58:00 Test Item Value Reference Range Interpretation Comments U Cocaine Scr (test Negative *NA*(06/28/18 code = U Cocaine Scr) 8:58 PM) [facility] [id number] 01:58:00 Test Item Value Reference Range Interpretation Comments UDS Note (test code = See Note *NA*(06/28/18 UDS Note) 8:58 PM) [facility] [id number] 01:58:00 Test Item Value Reference Range Interpretation Comments U Opiate Scr (test Negative *NA*(06/28/18 code = U Opiate Scr) 8:58 PM) [facility] [id number] 01:58:00 Test Item Value Reference Range Interpretation Comments U Phencyclidine Scr (test Negative code = U Phencyclidine *NA*(06/28/18 8:58 Scr) PM) [facility] [id number] 01:58:00 Test Item Value Reference Range Interpretation Comments UA RBC (test code = no gt See_Comment [Automa emory message] The UA RBC) system which ge nerated this result transmit emory reference range : <=2. The reference range was not used to interpr et this result as dori l/abnormal. [facility] [id number] 01:58:00 Test Item Value Reference Range Interpretation Comments UA Spec Grav (test code = UA Spec 1.030 1 Grav) [facility] [id number] 01:58:00 Test Item Value Reference Range Interpretation Comments UA Turbidity (test code Marked *ABN*(06/28/18 = UA Turbidity) 8:58 PM) [facility] [id number] 01:58:00 Test Item Value Reference Range Interpretation Comments UA pH (test code = UA pH) 5.0 1 5.0-8.0 [facility] [id number] 01:58:00 Test Item Value Reference Range Interpretation Comments UA Bili (test code = Negative *NA*(06/28/18 UA Bili) 8:58 PM) [facility] [id number] 01:58:00 Test Item Value Reference Range Interpretation Comments UA Ketones (test code Negative *NA*(06/28/18 = UA Ketones) 8:58 PM) [facility] [id number] 01:58:00 Test Item Value Reference Range Interpretation Comments UA Color (test code = Yellow *NA*(06/28/18 UA Color) 8:58 PM) [facility] [id number] 01:58:00 Test Item Value Reference Range Interpretation Comments UA Blood (test code = Small *ABN*(06/28/18 UA Blood) 8:58 PM) [facility] [id number] 01:58:00 Test Item Value Reference Range Interpretation Comments UA Glucose (test code Negative *NA*(06/28/18 = UA Glucose) 8:58 PM) [facility] [id number] 01:58:00 Test Item Value Reference Range Interpretation Comments UA Protein (test code = UA Protein) 100 mg/dL [facility] [id number] 01:58:00 Test Item Value Reference Range Interpretation Comments UA WBC (test code = 1 See_Comment [Automa emory message] The UA WBC) system which ge nerated this result transmit emory reference range : <=5. The reference range was not used to interpr et this result as dori l/abnormal. [facility] [id number] 01:58:00 Test Item Value Reference Range Interpretation Comments UA Sq Epi (test code = None Seen (06/28/18 8:58 UA Sq Epi) PM) [facility] [id number] 01:58:00 Test Item Value Reference Range Interpretation Comments UA Leuk Est (test Moderate *ABN*(06/28/18 code = UA Leuk Est) 8:58 PM) [facility] [id number] 01:58:00 Test Item Value Reference Range Interpretation Comments UA Nitrite (test code Negative (06/28/18 8:58 = UA Nitrite) PM) [facility] [id number] 01:58:00 Test Item Value Reference Range Interpretation Comments UA Urobilinogen (test code = UA no gt 0.1-1.0 Urobilinogen) [facility] [id number] 01:58:00 Test Item Value Reference Range Interpretation Comments U Amph Scr (test code Negative *NA*(06/28/18 = U Amph Scr) 8:58 PM) [facility] [id number] 01:58:00 Test Item Value Reference Range Interpretation Comments U Benzodiaz Scr (test Negative *NA*(06/28/18 code = U Benzodiaz Scr) 8:58 PM) [facility] [id number] 01:58:00 Test Item Value Reference Range Interpretation Comments U Agnes Scr (test code Negative *NA*(06/28/18 = U Agnes Scr) 8:58 PM) [facility] [id number] 01:58:00 Test Item Value Reference Range Interpretation Comments U Cannab Scr (test Negative *NA*(06/28/18 code = U Cannab Scr) 8:58 PM) [facility] [id number] 01:58:00 Test Item Value Reference Range Interpretation Comments U Cocaine Scr (test Negative *NA*(06/28/18 code = U Cocaine Scr) 8:58 PM) [facility] [id number] 01:58:00 Test Item Value Reference Range Interpretation Comments UDS Note (test code = See Note *NA*(06/28/18 UDS Note) 8:58 PM) [facility] [id number] 01:58:00 Test Item Value Reference Range Interpretation Comments U Opiate Scr (test Negative *NA*(06/28/18 code = U Opiate Scr) 8:58 PM) [facility] [id number] 01:58:00 Test Item Value Reference Range Interpretation Comments U Phencyclidine Scr (test Negative code = U Phencyclidine *NA*(06/28/18 8:58 Scr) PM) [facility] [id number] 01:58:00 Test Item Value Reference Range Interpretation Comments UA RBC (test code = no gt See_Comment [Automa emory message] The UA RBC) system which ge nerated this result transmit emory reference range : <=2. The reference range was not used to interpr et this result as dori l/abnormal. [facility] [id number] 01:58:00 Test Item Value Reference Range Interpretation Comments UA Spec Grav (test code = UA Spec 1.030 1 Grav) [facility] [id number] 01:58:00 Test Item Value Reference Range Interpretation Comments UA Turbidity (test code Marked *ABN*(06/28/18 = UA Turbidity) 8:58 PM) [facility] AND [id number] 01:58:00 Test Item Value Reference Range Interpretation Comments UA pH (test code = UA pH) 5.0 1 5.0-8.0 [facility] AND [id number] 01:58:00 Test Item Value Reference Range Interpretation Comments UA Bili (test code = Negative *NA*(06/28/18 UA Bili) 8:58 PM) [facility] AND [id number] 01:58:00 Test Item Value Reference Range Interpretation Comments UA Ketones (test code Negative *NA*(06/28/18 = UA Ketones) 8:58 PM) [facility] AND [id number] 01:58:00 Test Item Value Reference Range Interpretation Comments UA Color (test code = Yellow *NA*(06/28/18 UA Color) 8:58 PM) [facility] AND [id number] 01:58:00 Test Item Value Reference Range Interpretation Comments UA Blood (test code = Small *ABN*(06/28/18 UA Blood) 8:58 PM) [facility] AND [id number] 01:58:00 Test Item Value Reference Range Interpretation Comments UA Glucose (test code Negative *NA*(06/28/18 = UA Glucose) 8:58 PM) [facility] AND [id number] 01:58:00 Test Item Value Reference Range Interpretation Comments UA Protein (test code = UA Protein) 100 mg/dL [facility] AND [id number] 01:58:00 Test Item Value Reference Range Interpretation Comments UA WBC (test code = 1 See_Comment [Automa emory message] The UA WBC) system which ge nerated this result transmit emory reference range : <=5. The reference range was not used to interpr et this result as dori l/abnormal. [facility] AND [id number] 01:58:00 Test Item Value Reference Range Interpretation Comments UA Sq Epi (test code = None Seen (06/28/18 8:58 UA Sq Epi) PM) [facility] AND [id number] 01:58:00 Test Item Value Reference Range Interpretation Comments UA Leuk Est (test Moderate *ABN*(06/28/18 code = UA Leuk Est) 8:58 PM) [facility] [id number] 01:58:00 Test Item Value Reference Range Interpretation Comments UA Nitrite (test code Negative (06/28/18 8:58 = UA Nitrite) PM) [facility] [id number] 01:58:00 Test Item Value Reference Range Interpretation Comments UA Urobilinogen (test code = UA no gt 0.1-1.0 Urobilinogen) [facility] [id number] 01:58:00 Test Item Value Reference Range Interpretation Comments U Amph Scr (test code Negative *NA*(06/28/18 = U Amph Scr) 8:58 PM) [facility] [id number] 01:58:00 Test Item Value Reference Range Interpretation Comments U Benzodiaz Scr (test Negative *NA*(06/28/18 code = U Benzodiaz Scr) 8:58 PM) [facility] [id number] 01:58:00 Test Item Value Reference Range Interpretation Comments U Agnes Scr (test code Negative *NA*(06/28/18 = U Agnes Scr) 8:58 PM) [facility] [id number] 01:58:00 Test Item Value Reference Range Interpretation Comments U Cannab Scr (test Negative *NA*(06/28/18 code = U Cannab Scr) 8:58 PM) [facility] [id number] 01:58:00 Test Item Value Reference Range Interpretation Comments U Cocaine Scr (test Negative *NA*(06/28/18 code = U Cocaine Scr) 8:58 PM) [facility] [id number] 01:58:00 Test Item Value Reference Range Interpretation Comments UDS Note (test code = See Note *NA*(06/28/18 UDS Note) 8:58 PM) [facility] [id number] 01:58:00 Test Item Value Reference Range Interpretation Comments U Opiate Scr (test Negative *NA*(06/28/18 code = U Opiate Scr) 8:58 PM) [facility] [id number] 01:58:00 Test Item Value Reference Range Interpretation Comments U Phencyclidine Scr (test Negative code = U Phencyclidine *NA*(06/28/18 8:58 Scr) PM) [facility] AND [id number] 01:58:00 Test Item Value Reference Range Interpretation Comments UA RBC (test code = no gt See_Comment [Automa emory message] The UA RBC) system which ge nerated this result transmit emory reference range : <=2. The reference range was not used to interpr et this result as dori l/abnormal. [facility] AND [id number] 01:58:00 Test Item Value Reference Range Interpretation Comments UA Spec Grav (test code = UA Spec 1.030 1 Grav) [facility] AND [id number] 01:58:00 Test Item Value Reference Range Interpretation Comments UA Turbidity (test code Marked *ABN*(06/28/18 = UA Turbidity) 8:58 PM) [facility] AND [id number] 01:58:00 Test Item Value Reference Range Interpretation Comments UA pH (test code = UA pH) 5.0 1 5.0-8.0 [facility] AND [id number] 01:58:00 Test Item Value Reference Range Interpretation Comments UA Bili (test code = Negative *NA*(06/28/18 UA Bili) 8:58 PM) [facility] AND [id number] 01:58:00 Test Item Value Reference Range Interpretation Comments UA Ketones (test code Negative *NA*(06/28/18 = UA Ketones) 8:58 PM) [facility] AND [id number] 01:58:00 Test Item Value Reference Range Interpretation Comments UA Color (test code = Yellow *NA*(06/28/18 UA Color) 8:58 PM) [facility] AND [id number] 01:58:00 Test Item Value Reference Range Interpretation Comments UA Blood (test code = Small *ABN*(06/28/18 UA Blood) 8:58 PM) [facility] AND [id number] 01:58:00 Test Item Value Reference Range Interpretation Comments UA Glucose (test code Negative *NA*(06/28/18 = UA Glucose) 8:58 PM) [facility] AND [id number] 01:58:00 Test Item Value Reference Range Interpretation Comments UA Protein (test code = UA Protein) 100 mg/dL [facility] [id number] 01:58:00 Test Item Value Reference Range Interpretation Comments UA WBC (test code = 1 See_Comment [Automa emory message] The UA WBC) system which ge nerated this result transmit emory reference range : <=5. The reference range was not used to interpr et this result as dori l/abnormal. [facility] [id number] 01:58:00 Test Item Value Reference Range Interpretation Comments UA Sq Epi (test code = None Seen (06/28/18 8:58 UA Sq Epi) PM) [facility] [id number] 01:58:00 Test Item Value Reference Range Interpretation Comments UA Leuk Est (test Moderate *ABN*(06/28/18 code = UA Leuk Est) 8:58 PM) [facility] [id number] 01:58:00 Test Item Value Reference Range Interpretation Comments UA Nitrite (test code Negative (06/28/18 8:58 = UA Nitrite) PM) [facility] [id number] 01:58:00 Test Item Value Reference Range Interpretation Comments UA Urobilinogen (test code = UA no gt 0.1-1.0 Urobilinogen) [facility] [id number] 01:58:00 Test Item Value Reference Range Interpretation Comments U Amph Scr (test code Negative *NA*(06/28/18 = U Amph Scr) 8:58 PM) [facility] [id number] 01:58:00 Test Item Value Reference Range Interpretation Comments U Benzodiaz Scr (test Negative *NA*(06/28/18 code = U Benzodiaz Scr) 8:58 PM) [facility] [id number] 01:58:00 Test Item Value Reference Range Interpretation Comments U Agnes Scr (test code Negative *NA*(06/28/18 = U Agnes Scr) 8:58 PM) [facility] [id number] 01:58:00 Test Item Value Reference Range Interpretation Comments U Cannab Scr (test Negative *NA*(06/28/18 code = U Cannab Scr) 8:58 PM) [facility] [id number] 01:58:00 Test Item Value Reference Range Interpretation Comments U Cocaine Scr (test Negative *NA*(06/28/18 code = U Cocaine Scr) 8:58 PM) [facility] [id number] 01:58:00 Test Item Value Reference Range Interpretation Comments UDS Note (test code = See Note *NA*(06/28/18 UDS Note) 8:58 PM) [facility] [id number] 01:58:00 Test Item Value Reference Range Interpretation Comments U Opiate Scr (test Negative *NA*(06/28/18 code = U Opiate Scr) 8:58 PM) [facility] [id number] 01:58:00 Test Item Value Reference Range Interpretation Comments U Phencyclidine Scr (test Negative code = U Phencyclidine *NA*(06/28/18 8:58 Scr) PM) [facility] [id number] 01:58:00 Test Item Value Reference Range Interpretation Comments UA RBC (test code = no gt See_Comment [Automa emory message] The UA RBC) system which ge nerated this result transmit emory reference range : <=2. The reference range was not used to interpr et this result as dori l/abnormal. [facility] [id number] 01:58:00 Test Item Value Reference Range Interpretation Comments UA Spec Grav (test code = UA Spec 1.030 1 Grav) [facility] [id number] 01:58:00 Test Item Value Reference Range Interpretation Comments UA Turbidity (test code Marked *ABN*(06/28/18 = UA Turbidity) 8:58 PM) [facility] [id number] 01:58:00 Test Item Value Reference Range Interpretation Comments UA pH (test code = UA pH) 5.0 1 5.0-8.0 [facility] [id number] 01:58:00 Test Item Value Reference Range Interpretation Comments UA Bili (test code = Negative *NA*(06/28/18 UA Bili) 8:58 PM) [facility] [id number] 01:58:00 Test Item Value Reference Range Interpretation Comments UA Ketones (test code Negative *NA*(06/28/18 = UA Ketones) 8:58 PM) [facility] [id number] 01:58:00 Test Item Value Reference Range Interpretation Comments UA Color (test code = Yellow *NA*(06/28/18 UA Color) 8:58 PM) [facility] [id number] 01:58:00 Test Item Value Reference Range Interpretation Comments UA Blood (test code = Small *ABN*(06/28/18 UA Blood) 8:58 PM) [facility] [id number] 01:58:00 Test Item Value Reference Range Interpretation Comments UA Glucose (test code Negative *NA*(06/28/18 = UA Glucose) 8:58 PM) [facility] [id number] 01:58:00 Test Item Value Reference Range Interpretation Comments UA Protein (test code = UA Protein) 100 mg/dL [facility] [id number] 01:58:00 Test Item Value Reference Range Interpretation Comments UA WBC (test code = 1 See_Comment [Automa emory message] The UA WBC) system which ge nerated this result transmit emory reference range : <=5. The reference range was not used to interpr et this result as dori l/abnormal. [facility] [id number] 01:58:00 Test Item Value Reference Range Interpretation Comments UA Sq Epi (test code = None Seen (06/28/18 8:58 UA Sq Epi) PM) [facility] AND [id number] 01:58:00 Test Item Value Reference Range Interpretation Comments UA Leuk Est (test Moderate *ABN*(06/28/18 code = UA Leuk Est) 8:58 PM) [facility] [id number] 01:58:00 Test Item Value Reference Range Interpretation Comments UA Nitrite (test code Negative (06/28/18 8:58 = UA Nitrite) PM) [facility] [id number] 01:58:00 Test Item Value Reference Range Interpretation Comments UA Urobilinogen (test code = UA no gt 0.1-1.0 Urobilinogen) [facility] [id number] 01:58:00 Test Item Value Reference Range Interpretation Comments U Amph Scr (test code Negative *NA*(06/28/18 = U Amph Scr) 8:58 PM) [facility] [id number] 01:58:00 Test Item Value Reference Range Interpretation Comments U Benzodiaz Scr (test Negative *NA*(06/28/18 code = U Benzodiaz Scr) 8:58 PM) [facility] [id number] 01:58:00 Test Item Value Reference Range Interpretation Comments U Agnes Scr (test code Negative *NA*(06/28/18 = U Agnes Scr) 8:58 PM) [facility] [id number] 01:58:00 Test Item Value Reference Range Interpretation Comments U Cannab Scr (test Negative *NA*(06/28/18 code = U Cannab Scr) 8:58 PM) [facility] [id number] 01:58:00 Test Item Value Reference Range Interpretation Comments U Cocaine Scr (test Negative *NA*(06/28/18 code = U Cocaine Scr) 8:58 PM) [facility] [facility] [id number] 01:58:00 Test Item Value Reference Range Interpretation Comments UDS Note (test code = See Note *NA*(06/28/18 UDS Note) 8:58 PM) [facility] [id number] 01:58:00 Test Item Value Reference Range Interpretation Comments U Opiate Scr (test Negative *NA*(06/28/18 code = U Opiate Scr) 8:58 PM) [facility] [id number] 01:58:00 Test Item Value Reference Range Interpretation Comments U Phencyclidine Scr (test Negative code = U Phencyclidine *NA*(06/28/18 8:58 Scr) PM) [facility] AND [id number] 01:58:00 Test Item Value Reference Range Interpretation Comments UA RBC (test code = no gt See_Comment [Automa emory message] The UA RBC) system which ge nerated this result transmit emory reference range : <=2. The reference range was not used to interpr et this result as dori l/abnormal. [facility] [id number] 01:58:00 Test Item Value Reference Range Interpretation Comments UA Spec Grav (test code = UA Spec 1.030 1 Grav) [facility] AND [id number] 01:58:00 Test Item Value Reference Range Interpretation Comments UA Turbidity (test code Marked *ABN*(06/28/18 = UA Turbidity) 8:58 PM) [facility] AND [id number] 01:58:00 Test Item Value Reference Range Interpretation Comments UA pH (test code = UA pH) 5.0 1 5.0-8.0 [facility] AND [id number] 01:58:00 Test Item Value Reference Range Interpretation Comments UA Bili (test code = Negative *NA*(06/28/18 UA Bili) 8:58 PM) [facility] AND [id number] 01:58:00 Test Item Value Reference Range Interpretation Comments UA Ketones (test code Negative *NA*(06/28/18 = UA Ketones) 8:58 PM) [facility] AND [id number] 01:58:00 Test Item Value Reference Range Interpretation Comments UA Color (test code = Yellow *NA*(06/28/18 UA Color) 8:58 PM) [facility] AND [id number] 01:58:00 Test Item Value Reference Range Interpretation Comments UA Blood (test code = Small *ABN*(06/28/18 UA Blood) 8:58 PM) [facility] AND [id number] 01:58:00 Test Item Value Reference Range Interpretation Comments UA Glucose (test code Negative *NA*(06/28/18 = UA Glucose) 8:58 PM) [facility] AND [id number] 01:58:00 Test Item Value Reference Range Interpretation Comments UA Protein (test code = UA Protein) 100 mg/dL [facility] AND [id number] 01:58:00 Test Item Value Reference Range Interpretation Comments UA WBC (test code = 1 See_Comment [Automa emory message] The UA WBC) system which ge nerated this result transmit emory reference range : <=5. The reference range was not used to interpr et this result as dori l/abnormal. [facility] AND [id number] 01:58:00 Test Item Value Reference Range Interpretation Comments UA Sq Epi (test code = None Seen (06/28/18 8:58 UA Sq Epi) PM) [facility] AND [id number] 01:58:00 Test Item Value Reference Range Interpretation Comments UA Leuk Est (test Moderate *ABN*(06/28/18 code = UA Leuk Est) 8:58 PM) [facility] [id number] 01:58:00 Test Item Value Reference Range Interpretation Comments UA Nitrite (test code Negative (06/28/18 8:58 = UA Nitrite) PM) [facility] [id number] 01:58:00 Test Item Value Reference Range Interpretation Comments UA Urobilinogen (test code = UA no gt 0.1-1.0 Urobilinogen) [facility] [id number] 01:58:00 Test Item Value Reference Range Interpretation Comments U Amph Scr (test code Negative *NA*(06/28/18 = U Amph Scr) 8:58 PM) [facility] [id number] 01:58:00 Test Item Value Reference Range Interpretation Comments U Benzodiaz Scr (test Negative *NA*(06/28/18 code = U Benzodiaz Scr) 8:58 PM) [facility] [id number] 01:58:00 Test Item Value Reference Range Interpretation Comments U Agnes Scr (test code Negative *NA*(06/28/18 = U Agnes Scr) 8:58 PM) [facility] [id number] 01:58:00 Test Item Value Reference Range Interpretation Comments U Cannab Scr (test Negative *NA*(06/28/18 code = U Cannab Scr) 8:58 PM) [facility] [id number] 01:58:00 Test Item Value Reference Range Interpretation Comments U Cocaine Scr (test Negative *NA*(06/28/18 code = U Cocaine Scr) 8:58 PM) [facility] [id number] 01:58:00 Test Item Value Reference Range Interpretation Comments UDS Note (test code = See Note *NA*(06/28/18 UDS Note) 8:58 PM) [facility] [id number] 01:58:00 Test Item Value Reference Range Interpretation Comments U Opiate Scr (test Negative *NA*(06/28/18 code = U Opiate Scr) 8:58 PM) [facility] [id number] 01:58:00 Test Item Value Reference Range Interpretation Comments U Phencyclidine Scr (test Negative code = U Phencyclidine *NA*(06/28/18 8:58 Scr) PM) [facility] AND [id number] 01:58:00 Test Item Value Reference Range Interpretation Comments UA RBC (test code = no gt See_Comment [Automa emory message] The UA RBC) system which ge nerated this result transmit emory reference range : <=2. The reference range was not used to interpr et this result as dori l/abnormal. [facility] AND [id number] 01:58:00 Test Item Value Reference Range Interpretation Comments UA Spec Grav (test code = UA Spec 1.030 1 Grav) [facility] AND [id number] 01:58:00 Test Item Value Reference Range Interpretation Comments UA Turbidity (test code Marked *ABN*(06/28/18 = UA Turbidity) 8:58 PM) [facility] AND [id number] 01:58:00 Test Item Value Reference Range Interpretation Comments UA pH (test code = UA pH) 5.0 1 5.0-8.0 [facility] AND [id number] 01:58:00 Test Item Value Reference Range Interpretation Comments UA Bili (test code = Negative *NA*(06/28/18 UA Bili) 8:58 PM) [facility] AND [id number] 01:58:00 Test Item Value Reference Range Interpretation Comments UA Ketones (test code Negative *NA*(06/28/18 = UA Ketones) 8:58 PM) [facility] AND [id number] 01:58:00 Test Item Value Reference Range Interpretation Comments UA Color (test code = Yellow *NA*(06/28/18 UA Color) 8:58 PM) [facility] AND [id number] 01:58:00 Test Item Value Reference Range Interpretation Comments UA Blood (test code = Small *ABN*(06/28/18 UA Blood) 8:58 PM) [facility] AND [id number] 01:58:00 Test Item Value Reference Range Interpretation Comments UA Glucose (test code Negative *NA*(06/28/18 = UA Glucose) 8:58 PM) [facility] AND [id number] 01:58:00 Test Item Value Reference Range Interpretation Comments UA Protein (test code = UA Protein) 100 mg/dL [facility] AND [id number] 01:58:00 Test Item Value Reference Range Interpretation Comments UA WBC (test code = 1 See_Comment [Automa emory message] The UA WBC) system which ge nerated this result transmit emory reference range : <=5. The reference range was not used to interpr et this result as dori l/abnormal. [facility] [id number] 01:58:00 Test Item Value Reference Range Interpretation Comments UA Sq Epi (test code = None Seen (06/28/18 8:58 UA Sq Epi) PM) [facility] [id number] 01:58:00 Test Item Value Reference Range Interpretation Comments UA Leuk Est (test Moderate *ABN*(06/28/18 code = UA Leuk Est) 8:58 PM) [facility] AND [id number] 01:58:00 Test Item Value Reference Range Interpretation Comments UA Nitrite (test code Negative (06/28/18 8:58 = UA Nitrite) PM) [facility] AND [id number] 01:58:00 Test Item Value Reference Range Interpretation Comments UA Urobilinogen (test code = UA no gt 0.1-1.0 Urobilinogen) [facility] [id number] 01:58:00 Test Item Value Reference Range Interpretation Comments U Amph Scr (test code Negative *NA*(06/28/18 = U Amph Scr) 8:58 PM) [facility] [id number] 01:58:00 Test Item Value Reference Range Interpretation Comments U Benzodiaz Scr (test Negative *NA*(06/28/18 code = U Benzodiaz Scr) 8:58 PM) [facility] [id number] 01:58:00 Test Item Value Reference Range Interpretation Comments U Agnes Scr (test code Negative *NA*(06/28/18 = U Agnes Scr) 8:58 PM) [facility] [id number] 01:58:00 Test Item Value Reference Range Interpretation Comments U Cannab Scr (test Negative *NA*(06/28/18 code = U Cannab Scr) 8:58 PM) [facility] [id number] 01:58:00 Test Item Value Reference Range Interpretation Comments U Cocaine Scr (test Negative *NA*(06/28/18 code = U Cocaine Scr) 8:58 PM) [facility] [id number] 01:58:00 Test Item Value Reference Range Interpretation Comments UDS Note (test code = See Note *NA*(06/28/18 UDS Note) 8:58 PM) [facility] [id number] 01:58:00 Test Item Value Reference Range Interpretation Comments U Opiate Scr (test Negative *NA*(06/28/18 code = U Opiate Scr) 8:58 PM) [facility] [id number] 01:58:00 Test Item Value Reference Range Interpretation Comments U Phencyclidine Scr (test Negative code = U Phencyclidine *NA*(06/28/18 8:58 Scr) PM) [facility] [id number] 01:58:00 Test Item Value Reference Range Interpretation Comments UA RBC (test code = no gt See_Comment [Automa emory message] The UA RBC) system which ge nerated this result transmit emory reference range : <=2. The reference range was not used to interpr et this result as doir l/abnormal. [facility] [id number] 01:58:00 Test Item Value Reference Range Interpretation Comments UA Spec Grav (test code = UA Spec 1.030 1 Grav) [facility] [id number] 01:58:00 Test Item Value Reference Range Interpretation Comments UA Turbidity (test code Marked *ABN*(06/28/18 = UA Turbidity) 8:58 PM) [facility] [id number] 01:58:00 Test Item Value Reference Range Interpretation Comments UA pH (test code = UA pH) 5.0 1 5.0-8.0 [facility] [id number] 01:58:00 Test Item Value Reference Range Interpretation Comments UA Bili (test code = Negative *NA*(06/28/18 UA Bili) 8:58 PM) [facility] [id number] 01:58:00 Test Item Value Reference Range Interpretation Comments UA Ketones (test code Negative *NA*(06/28/18 = UA Ketones) 8:58 PM) [facility] [id number] 01:58:00 Test Item Value Reference Range Interpretation Comments UA Color (test code = Yellow *NA*(06/28/18 UA Color) 8:58 PM) [facility] [id number] 01:58:00 Test Item Value Reference Range Interpretation Comments UA Blood (test code = Small *ABN*(06/28/18 UA Blood) 8:58 PM) [facility] [id number] 01:58:00 Test Item Value Reference Range Interpretation Comments UA Glucose (test code Negative *NA*(06/28/18 = UA Glucose) 8:58 PM) [facility] [id number] 01:58:00 Test Item Value Reference Range Interpretation Comments UA Protein (test code = UA Protein) 100 mg/dL [facility] [id number] 01:58:00 Test Item Value Reference Range Interpretation Comments UA WBC (test code = 1 See_Comment [Automa emory message] The UA WBC) system which ge nerated this result transmit emory reference range : <=5. The reference range was not used to interpr et this result as dori l/abnormal. [facility] [id number] 01:58:00 Test Item Value Reference Range Interpretation Comments UA Sq Epi (test code = None Seen (06/28/18 8:58 UA Sq Epi) PM) [facility] [id number] 01:58:00 Test Item Value Reference Range Interpretation Comments UA Leuk Est (test Moderate *ABN*(06/28/18 code = UA Leuk Est) 8:58 PM) [facility] [id number] 01:58:00 Test Item Value Reference Range Interpretation Comments UA Nitrite (test code Negative (06/28/18 8:58 = UA Nitrite) PM) [facility] [id number] 01:58:00 Test Item Value Reference Range Interpretation Comments UA Urobilinogen (test code = UA no gt 0.1-1.0 Urobilinogen) [facility] [id number] 01:58:00 Test Item Value Reference Range Interpretation Comments U Amph Scr (test code Negative *NA*(06/28/18 = U Amph Scr) 8:58 PM) [facility] [id number] 01:58:00 Test Item Value Reference Range Interpretation Comments U Benzodiaz Scr (test Negative *NA*(06/28/18 code = U Benzodiaz Scr) 8:58 PM) [facility] [id number] 01:58:00 Test Item Value Reference Range Interpretation Comments U Agnes Scr (test code Negative *NA*(06/28/18 = U Agnes Scr) 8:58 PM) [facility] [id number] 01:58:00 Test Item Value Reference Range Interpretation Comments U Cannab Scr (test Negative *NA*(06/28/18 code = U Cannab Scr) 8:58 PM) [facility] [id number] 01:58:00 Test Item Value Reference Range Interpretation Comments U Cocaine Scr (test Negative *NA*(06/28/18 code = U Cocaine Scr) 8:58 PM) [facility] [id number] 01:58:00 Test Item Value Reference Range Interpretation Comments UDS Note (test code = See Note *NA*(06/28/18 UDS Note) 8:58 PM) [facility] [id number] 01:58:00 Test Item Value Reference Range Interpretation Comments U Opiate Scr (test Negative *NA*(06/28/18 code = U Opiate Scr) 8:58 PM) [facility] [id number] 01:58:00 Test Item Value Reference Range Interpretation Comments U Phencyclidine Scr (test Negative code = U Phencyclidine *NA*(06/28/18 8:58 Scr) PM) [facility] [id number] 01:58:00 Test Item Value Reference Range Interpretation Comments UA RBC (test code = no gt See_Comment [Automa emory message] The UA RBC) system which ge nerated this result transmit emory reference range : <=2. The reference range was not used to interpr et this result as dori l/abnormal. [facility] [id number] 01:58:00 Test Item Value Reference Range Interpretation Comments UA Spec Grav (test code = UA Spec 1.030 1 Grav) [facility] [id number] 01:58:00 Test Item Value Reference Range Interpretation Comments UA Turbidity (test code Marked *ABN*(06/28/18 = UA Turbidity) 8:58 PM) [facility] [id number] 01:58:00 Test Item Value Reference Range Interpretation Comments UA pH (test code = UA pH) 5.0 1 5.0-8.0 [facility] AND [id number] 01:58:00 Test Item Value Reference Range Interpretation Comments UA Bili (test code = Negative *NA*(06/28/18 UA Bili) 8:58 PM) [facility] AND [id number] 01:58:00 Test Item Value Reference Range Interpretation Comments UA Ketones (test code Negative *NA*(06/28/18 = UA Ketones) 8:58 PM) [facility] AND [id number] 01:58:00 Test Item Value Reference Range Interpretation Comments UA Color (test code = Yellow *NA*(06/28/18 UA Color) 8:58 PM) [facility] AND [id number] 01:58:00 Test Item Value Reference Range Interpretation Comments UA Blood (test code = Small *ABN*(06/28/18 UA Blood) 8:58 PM) [facility] AND [id number] 01:58:00 Test Item Value Reference Range Interpretation Comments UA Glucose (test code Negative *NA*(06/28/18 = UA Glucose) 8:58 PM) [facility] AND [id number] 01:58:00 Test Item Value Reference Range Interpretation Comments UA Protein (test code = UA Protein) 100 mg/dL [facility] AND [id number] 01:58:00 Test Item Value Reference Range Interpretation Comments UA WBC (test code = 1 See_Comment [Automa emory message] The UA WBC) system which ge nerated this result transmit emory reference range : <=5. The reference range was not used to interpr et this result as dori l/abnormal. [facility] AND [id number] 01:58:00 Test Item Value Reference Range Interpretation Comments UA Sq Epi (test code = None Seen (06/28/18 8:58 UA Sq Epi) PM) [facility] AND [id number] 01:58:00 Test Item Value Reference Range Interpretation Comments UA Leuk Est (test Moderate *ABN*(06/28/18 code = UA Leuk Est) 8:58 PM) [facility] [id number] 01:58:00 Test Item Value Reference Range Interpretation Comments UA Nitrite (test code Negative (06/28/18 8:58 = UA Nitrite) PM) [facility] [id number] 01:58:00 Test Item Value Reference Range Interpretation Comments UA Urobilinogen (test code = UA no gt 0.1-1.0 Urobilinogen) [facility] [id number] 01:58:00 Test Item Value Reference Range Interpretation Comments U Amph Scr (test code Negative *NA*(06/28/18 = U Amph Scr) 8:58 PM) [facility] [id number] 01:58:00 Test Item Value Reference Range Interpretation Comments U Benzodiaz Scr (test Negative *NA*(06/28/18 code = U Benzodiaz Scr) 8:58 PM) [facility] [id number] 01:58:00 Test Item Value Reference Range Interpretation Comments U Agnes Scr (test code Negative *NA*(06/28/18 = U Agnes Scr) 8:58 PM) [facility] [id number] 01:58:00 Test Item Value Reference Range Interpretation Comments U Cannab Scr (test Negative *NA*(06/28/18 code = U Cannab Scr) 8:58 PM) [facility] [id number] 01:58:00 Test Item Value Reference Range Interpretation Comments U Cocaine Scr (test Negative *NA*(06/28/18 code = U Cocaine Scr) 8:58 PM) [facility] [id number] 01:58:00 Test Item Value Reference Range Interpretation Comments UDS Note (test code = See Note *NA*(06/28/18 UDS Note) 8:58 PM) [facility] [id number] 01:58:00 Test Item Value Reference Range Interpretation Comments U Opiate Scr (test Negative *NA*(06/28/18 code = U Opiate Scr) 8:58 PM) [facility] [id number] 01:58:00 Test Item Value Reference Range Interpretation Comments U Phencyclidine Scr (test Negative code = U Phencyclidine *NA*(06/28/18 8:58 Scr) PM) [facility] [id number] 01:58:00 Test Item Value Reference Range Interpretation Comments UA RBC (test code = no gt See_Comment [Automa emory message] The UA RBC) system which ge nerated this result transmit emory reference range : <=2. The reference range was not used to interpr et this result as dori l/abnormal. [facility] AND [id number] 01:58:00 Test Item Value Reference Range Interpretation Comments UA Spec Grav (test code = UA Spec 1.030 1 Grav) [facility] AND [id number] 01:58:00 Test Item Value Reference Range Interpretation Comments UA Turbidity (test code Marked *ABN*(06/28/18 = UA Turbidity) 8:58 PM) [facility] AND [id number] 01:58:00 Test Item Value Reference Range Interpretation Comments UA pH (test code = UA pH) 5.0 1 5.0-8.0 [facility] AND [id number] 01:58:00 Test Item Value Reference Range Interpretation Comments UA Bili (test code = Negative *NA*(06/28/18 UA Bili) 8:58 PM) [facility] AND [id number] 01:58:00 Test Item Value Reference Range Interpretation Comments UA Ketones (test code Negative *NA*(06/28/18 = UA Ketones) 8:58 PM) [facility] AND [id number] 01:58:00 Test Item Value Reference Range Interpretation Comments UA Color (test code = Yellow *NA*(06/28/18 UA Color) 8:58 PM) [facility] AND [id number] 01:58:00 Test Item Value Reference Range Interpretation Comments UA Blood (test code = Small *ABN*(06/28/18 UA Blood) 8:58 PM) [facility] AND [id number] 01:58:00 Test Item Value Reference Range Interpretation Comments UA Glucose (test code Negative *NA*(06/28/18 = UA Glucose) 8:58 PM) [facility] AND [id number] 01:58:00 Test Item Value Reference Range Interpretation Comments UA Protein (test code = UA Protein) 100 mg/dL [facility] AND [id number] 01:58:00 Test Item Value Reference Range Interpretation Comments UA WBC (test code = 1 See_Comment [Automa emory message] The UA WBC) system which ge nerated this result transmit emory reference range : <=5. The reference range was not used to interpr et this result as dori l/abnormal. [facility] [id number] 01:58:00 Test Item Value Reference Range Interpretation Comments UA Sq Epi (test code = None Seen (06/28/18 8:58 UA Sq Epi) PM) [facility] AND [id number] 01:58:00 Test Item Value Reference Range Interpretation Comments UA Leuk Est (test Moderate *ABN*(06/28/18 code = UA Leuk Est) 8:58 PM) [facility] AND [id number] 01:58:00 Test Item Value Reference Range Interpretation Comments UA Nitrite (test code Negative (06/28/18 8:58 = UA Nitrite) PM) [facility] AND [id number] 01:58:00 Test Item Value Reference Range Interpretation Comments UA Urobilinogen (test code = UA no gt 0.1-1.0 Urobilinogen) [facility] [id number] 01:58:00 Test Item Value Reference Range Interpretation Comments U Amph Scr (test code Negative *NA*(06/28/18 = U Amph Scr) 8:58 PM) [facility] [id number] 01:58:00 Test Item Value Reference Range Interpretation Comments U Benzodiaz Scr (test Negative *NA*(06/28/18 code = U Benzodiaz Scr) 8:58 PM) [facility] [id number] 01:58:00 Test Item Value Reference Range Interpretation Comments U Agnes Scr (test code Negative *NA*(06/28/18 = U Agnes Scr) 8:58 PM) [facility] [id number] 01:58:00 Test Item Value Reference Range Interpretation Comments U Cannab Scr (test Negative *NA*(06/28/18 code = U Cannab Scr) 8:58 PM) [facility] [id number] 01:58:00 Test Item Value Reference Range Interpretation Comments U Cocaine Scr (test Negative *NA*(06/28/18 code = U Cocaine Scr) 8:58 PM) [facility] [id number] 01:58:00 Test Item Value Reference Range Interpretation Comments UDS Note (test code = See Note *NA*(06/28/18 UDS Note) 8:58 PM) [facility] [id number] 01:58:00 Test Item Value Reference Range Interpretation Comments U Opiate Scr (test Negative *NA*(06/28/18 code = U Opiate Scr) 8:58 PM) [facility] [id number] 01:58:00 Test Item Value Reference Range Interpretation Comments U Phencyclidine Scr (test Negative code = U Phencyclidine *NA*(06/28/18 8:58 Scr) PM) [facility] [id number] 01:58:00 Test Item Value Reference Range Interpretation Comments UA RBC (test code = no gt See_Comment [Automa emory message] The UA RBC) system which ge nerated this result transmit emory reference range : <=2. The reference range was not used to interpr et this result as dori l/abnormal. [facility] [id number] 14:22:00 Test Item Value Reference Range Interpretation Comments POC Activated Clotting Time (test code 233 s = POC Activated Clotting Time) [id number] 14:22:00 Test Item Value Reference Range Interpretation Comments POC Activated Clotting Time (test code 233 s = POC Activated Clotting Time) [facility] [id number] 14:22:00 Test Item Value Reference Range Interpretation Comments POC Activated Clotting Time (test code 233 s = POC Activated Clotting Time) [facility] GladwinTeguimnQOLJVPOMMQ0889-31-08 14:22:00 Test Item Value Reference Range Interpretation Comments POC Activated Clotting Time (test code 233 s = POC Activated Clotting Time) [facility] GladwinOspjqugRODTRUHDIF1909-03-69 14:22:00 Test Item Value Reference Range Interpretation Comments POC Activated Clotting Time (test code 233 s = POC Activated Clotting Time) [facility] GladwinSmaqlzcKWMVCGWOPT9619-24-92 14:22:00 Test Item Value Reference Range Interpretation Comments POC Activated Clotting Time (test code 233 s = POC Activated Clotting Time) [facility] GladwinWtmlbbmKVBIGWKWRY9539-15-97 14:22:00 Test Item Value Reference Range Interpretation Comments POC Activated Clotting Time (test code 233 s = POC Activated Clotting Time) [facility] HospitalQwcdcphGJMIMURCKT3696-90-02 14:22:00 Test Item Value Reference Range Interpretation Comments POC Activated Clotting Time (test code 233 s = POC Activated Clotting Time) [facility] HospitalLrxpwgiHYYVGWAPDP9898-42-40 14:22:00 Test Item Value Reference Range Interpretation Comments POC Activated Clotting Time (test code 233 s = POC Activated Clotting Time) [facility] HospitalJshpcciAJUGGSENGW4036-05-66 14:22:00 Test Item Value Reference Range Interpretation Comments POC Activated Clotting Time (test code 233 s = POC Activated Clotting Time) [facility] HospitalDswtseqMTJOSCHVUH1246-46-69 14:22:00 Test Item Value Reference Range Interpretation Comments POC Activated Clotting Time (test code 233 s = POC Activated Clotting Time) [facility] HospitalDewpuntDEHEFHLYQA4005-41-56 14:22:00 Test Item Value Reference Range Interpretation Comments POC Activated Clotting Time (test code 233 s = POC Activated Clotting Time) [facility] HospitalQhhmeviLAINQJIFHO8822-17-02 14:22:00 Test Item Value Reference Range Interpretation Comments POC Activated Clotting Time (test code 233 s = POC Activated Clotting Time) [facility] HospitalDciezglJWJFUGTZVB9159-25-21 14:22:00 Test Item Value Reference Range Interpretation Comments POC Activated Clotting Time (test code 233 s = POC Activated Clotting Time) [facility] HospitalIymppysQJYDHFIBLN4209-89-86 13:24:00 Test Item Value Reference Range Interpretation Comments POC Activated Clotting Time (test code 245 s = POC Activated Clotting Time) [facility] HospitalXpprisyLKIRWAAVSI1413-08-06 13:24:00 Test Item Value Reference Range Interpretation Comments POC Activated Clotting Time (test code 245 s = POC Activated Clotting Time) [facility] HospitalAryqndnKMSGUMRZAE3229-85-65 13:24:00 Test Item Value Reference Range Interpretation Comments POC Activated Clotting Time (test code 245 s = POC Activated Clotting Time) [facility] HospitalVvadkygFNDLXWQJFK2509-48-09 13:24:00 Test Item Value Reference Range Interpretation Comments POC Activated Clotting Time (test code 245 s = POC Activated Clotting Time) [facility] HospitalOwakyglRHGNZDIANJ8436-28-95 13:24:00 Test Item Value Reference Range Interpretation Comments POC Activated Clotting Time (test code 245 s = POC Activated Clotting Time) [facility] HospitalMnfnwheMPJJBEDOWW1306-41-74 13:24:00 Test Item Value Reference Range Interpretation Comments POC Activated Clotting Time (test code 245 s = POC Activated Clotting Time) [facility] HospitalWzhnuxiCKNOYEDJVH7520-41-62 13:24:00 Test Item Value Reference Range Interpretation Comments POC Activated Clotting Time (test code 245 s = POC Activated Clotting Time) [facility] HospitalHwengojSZPPGBIMNU6524-41-94 13:24:00 Test Item Value Reference Range Interpretation Comments POC Activated Clotting Time (test code 245 s = POC Activated Clotting Time) [facility] HospitalXkemonxARYGSNCDSU2029-48-02 13:24:00 Test Item Value Reference Range Interpretation Comments POC Activated Clotting Time (test code 245 s = POC Activated Clotting Time) [facility] HospitalQbwlsphZBMCTWNKVX6589-57-19 13:24:00 Test Item Value Reference Range Interpretation Comments POC Activated Clotting Time (test code 245 s = POC Activated Clotting Time) [facility] HospitalEmwvobuPBASEVQWGP6365-07-05 13:24:00 Test Item Value Reference Range Interpretation Comments POC Activated Clotting Time (test code 245 s = POC Activated Clotting Time) [facility] HospitalHqpcqeyBHAJMMVICK3494-17-42 13:24:00 Test Item Value Reference Range Interpretation Comments POC Activated Clotting Time (test code 245 s = POC Activated Clotting Time) [facility] HospitalBgeekreRGTSRUCMTM5204-98-01 13:24:00 Test Item Value Reference Range Interpretation Comments POC Activated Clotting Time (test code 245 s = POC Activated Clotting Time) [facility] HospitalVetdvtyWBGCENRFVC3490-40-49 13:24:00 Test Item Value Reference Range Interpretation Comments POC Activated Clotting Time (test code 245 s = POC Activated Clotting Time) [facility] HospitalPbkvffoOUTGYBKPJG2016-47-63 12:59:00 Test Item Value Reference Range Interpretation Comments POC Activated Clotting Time (test code 143 s = POC Activated Clotting Time) [facility] HospitalRbbfdvnXKNVHXOYUN9278-89-75 12:59:00 Test Item Value Reference Range Interpretation Comments POC Activated Clotting Time (test code 143 s = POC Activated Clotting Time) [facility] HospitalIuvcizaRCLUOULGFG3295-14-90 12:59:00 Test Item Value Reference Range Interpretation Comments POC Activated Clotting Time (test code 143 s = POC Activated Clotting Time) [facility] HospitalIoyjqimWTDVUEOLDG8232-57-38 12:59:00 Test Item Value Reference Range Interpretation Comments POC Activated Clotting Time (test code 143 s = POC Activated Clotting Time) [facility] HospitalDbddtnlLVPKMTKEIR0929-96-85 12:59:00 Test Item Value Reference Range Interpretation Comments POC Activated Clotting Time (test code 143 s = POC Activated Clotting Time) [facility] HospitalZbnsjgcOGDYVKAUKB5415-95-11 12:59:00 Test Item Value Reference Range Interpretation Comments POC Activated Clotting Time (test code 143 s = POC Activated Clotting Time) [facility] HospitalLbjiggsBOPGZDDRQW6975-35-86 12:59:00 Test Item Value Reference Range Interpretation Comments POC Activated Clotting Time (test code 143 s = POC Activated Clotting Time) [facility] HospitalKbjsjtjMYHJFXQAYY9968-27-87 12:59:00 Test Item Value Reference Range Interpretation Comments POC Activated Clotting Time (test code 143 s = POC Activated Clotting Time) [facility] HospitalPcjyqepRUWFVXEVXP1940-15-94 12:59:00 Test Item Value Reference Range Interpretation Comments POC Activated Clotting Time (test code 143 s = POC Activated Clotting Time) [facility] HospitalYgwatgxZVADYHZUNB3735-03-87 12:59:00 Test Item Value Reference Range Interpretation Comments POC Activated Clotting Time (test code 143 s = POC Activated Clotting Time) [facility] HospitalVtqcmjqGMFWJXPTNY5206-98-88 12:59:00 Test Item Value Reference Range Interpretation Comments POC Activated Clotting Time (test code 143 s = POC Activated Clotting Time) [facility] HospitalXziomoqCTHNUAKOII8995-19-59 12:59:00 Test Item Value Reference Range Interpretation Comments POC Activated Clotting Time (test code 143 s = POC Activated Clotting Time) [facility] HospitalAqhaeazCIRFOURXJO6841-13-17 12:59:00 Test Item Value Reference Range Interpretation Comments POC Activated Clotting Time (test code 143 s = POC Activated Clotting Time) [facility] HospitalTvjtkbwEYMEQLWWUI2416-96-65 12:59:00 Test Item Value Reference Range Interpretation Comments POC Activated Clotting Time (test code 143 s = POC Activated Clotting Time) [facility] [employer] SONKSVB5363-15-76 08:46:00 Test Item Value Reference Range Interpretation Comments Antibody Scrn (test Negative (06/28/18 3:46 code = Antibody Scrn) AM) [facility] DNXPRXK5501-90-85 08:46:00 Test Item Value Reference Range Interpretation Comments ABO/Rh (test code = ABO/Rh) O POS [facility] [employer] MECDJ8464-86-47 08:46:00 Test Item Value Reference Range Interpretation Comments Magnesium Lvl (test code = Magnesium 1.9 1.8-2.4 Lvl) [facility]Cont[facility] BFRXW9652-64-06 08:46:00 Test Item Value Reference Range Interpretation Comments Phosphorus (test code = Phosphorus) 1.9 2.5-4.5 [facility]YwowzcpHSAFXSLTABBP5642-45-77 08:46:00 Test Item Value Reference Range Interpretation Comments AGAP (test code = AGAP) 13.0 10.0-20.0 [facility] HospitalKevjmqjEXPKVSYDESCD4196-76-62 08:46:00 Test Item Value Reference Range Interpretation Comments eGFR (test code = eGFR) 37 [facility] HospitalMahizcnXVGMDOPEAILV8654-20-81 08:46:00 Test Item Value Reference Range Interpretation Comments Calcium Lvl (test code = Calcium Lvl) 8.4 8.5-10.5 [facility] HospitalBkzclioAAKPGFFROQHK1528-70-24 08:46:00 Test Item Value Reference Range Interpretation Comments BUN (test code = BUN) 26 7-22 [facility] HospitalQizdqedFALPULVTRVHG5129-82-73 08:46:00 Test Item Value Reference Range Interpretation Comments Glucose Lvl (test code = Glucose Lvl) 119 70-99 [facility] HospitalSehkvsjLWGDYUTGRFIN9199-19-29 08:46:00 Test Item Value Reference Range Interpretation Comments Potassium Lvl (test code = Potassium 4.0 3.5-5.1 Lvl) [facility] HospitalYlgxygfCIKODSIKYCJH9687-93-88 08:46:00 Test Item Value Reference Range Interpretation Comments Sodium Lvl (test code = Sodium Lvl) 144 135-145 [facility] HospitalBtukcsbUUZSKDQJTGUK2086-59-77 08:46:00 Test Item Value Reference Range Interpretation Comments Creatinine Lvl (test code = Creatinine 1.76 0.50-1.40 Lvl) [facility] HospitalCbilqaiRDIXZQYMMAAJ9178-99-08 08:46:00 Test Item Value Reference Range Interpretation Comments Chloride Lvl (test code = Chloride Lvl) 114 95-109 [facility] HospitalWwlhykcABXLDPZVJZIY1909-34-64 08:46:00 Test Item Value Reference Range Interpretation Comments CO2 (test code = CO2) 21 24-32 [facility] HospitalGwsamwgFJCIRVUSQN0509-98-82 08:46:00 Test Item Value Reference Range Interpretation Comments INR (test code = INR) 1.07 1 0.85-1.17 [facility] HospitalAjzyphdOZRFWSYLFJ4146-95-67 08:46:00 Test Item Value Reference Range Interpretation Comments PT (test code = PT) 13.7 s 12.0-14.7 [facility] HospitalXdwviplHHPOKYZDOQ7765-20-70 08:46:00 Test Item Value Reference Range Interpretation Comments PTT (test code = PTT) 27.4 s 22.9-35.8 [facility] HospitalJqovkfkALTIOXVBPW0247-27-75 08:46:00 Test Item Value Reference Range Interpretation Comments TEG Interp (test Thrombelastograph results code = TEG show shortened value of R. Interp) This finding is suggestive of enzymatic hypercoagulation. CPT:97506 [facility] HospitalLofnldtKWMYFPQEQJ9344-38-65 08:46:00 Test Item Value Reference Range Interpretation Comments Coag Index (test code 3.2 1 See_Comment [Auto mated message] The = Coag Index) system which g enerated this result transmit emory reference range : <=3.0. The reference range was not used to interpr et this result as dori l/abnormal. [facility] HospitalYcxhmtfDVGXAHBTGY5429-42-23 08:46:00 Test Item Value Reference Range Interpretation Comments TEG Data (test code = See Note (06/28/18 3:46 TEG Data) AM) [facility] HospitalGmxvaneVZAAFMPHIX6252-23-26 08:46:00 Test Item Value Reference Range Interpretation Comments G-value (test code = G-value) 9.8 4.5-11.0 [facility] HospitalJphdxspDUHYPGUBKE1279-26-23 08:46:00 Test Item Value Reference Range Interpretation Comments Ly30 (test code = 0.0 See_Comment [Automate d message] The Ly30) system which ge nerated this result transmit emory reference range : <=7.5. The reference range was not used to interpr et this result as dori l/abnormal. [facility] HospitalWamoiccZZKFPDBJGP3064-84-31 08:46:00 Test Item Value Reference Range Interpretation Comments Max Amp (test code = Max Amp) 66.3 mm 50.0-70.0 [facility] HospitalWwnzosiVZBRGJCVNF4755-79-04 08:46:00 Test Item Value Reference Range Interpretation Comments K-time (test code = K-time) 1.7 min 1.0-3.0 [facility] HospitalElpvkqcIRCUYCJYYC3740-32-15 08:46:00 Test Item Value Reference Range Interpretation Comments Angle (test code = Angle) 68.4 degrees 53.0-72.0 [facility] HospitalJzbyuhiOQCSWMFFID8925-72-35 08:46:00 Test Item Value Reference Range Interpretation Comments R-time (test code = R-time) 2.6 min 5.0-10.0 [facility] HospitalCbdmlkqPLJHLRRHFD1863-67-40 08:46:00 Test Item Value Reference Range Interpretation Comments WBC (test code = WBC) 8.2 3.7-10.4 [facility] HospitalGcxqrhpAFLRKDBRAP8066-78-11 08:46:00 Test Item Value Reference Range Interpretation Comments MCHC (test code = MCHC) 33.7 32.0-36.0 [facility] HospitalNfzdhhtJTCKWFJEHO5932-64-53 08:46:00 Test Item Value Reference Range Interpretation Comments MCH (test code = MCH) 30.3 pg 27.0-31.0 [facility] HospitalNhiojjiIOMUTEVXSY9799-87-63 08:46:00 Test Item Value Reference Range Interpretation Comments MCV (test code = MCV) 90.1 80.0-94.0 [facility] HospitalHjiqgrrOBFXGZUYWY9866-96-73 08:46:00 Test Item Value Reference Range Interpretation Comments Hgb (test code = Hgb) 12.7 14.0-18.0 [facility] HospitalRoqktqxKOEBQNZLGF6596-98-14 08:46:00 Test Item Value Reference Range Interpretation Comments RBC (test code = RBC) 4.18 4.70-6.10 [facility] HospitalCdkkeexLCOWHEKCCK0260-07-12 08:46:00 Test Item Value Reference Range Interpretation Comments Hct (test code = Hct) 37.7 42.0-54.0 [facility] HospitalSzcbattKPMBYMYFZS0336-57-39 08:46:00 Test Item Value Reference Range Interpretation Comments RDW (test code = RDW) 16.1 11.5-14.5 [facility] HospitalGgrtsxyAQMBMDCFRD6270-89-81 08:46:00 Test Item Value Reference Range Interpretation Comments MPV (test code = MPV) 8.6 7.4-10.4 [facility] HospitalIbkpaorNYKSVKDTNJ0853-10-98 08:46:00 Test Item Value Reference Range Interpretation Comments Platelet (test code = Platelet) 203 133-450 [facility] HospitalFutrcqvGMLNCUQNHR3768-76-17 08:46:00 Test Item Value Reference Range Interpretation Comments Lymphocytes # (test code = Lymphocytes 0.9 1.0-5.5 #) [facility] HospitalFjklhceHNRZGJEULB1293-21-25 08:46:00 Test Item Value Reference Range Interpretation Comments Monocytes # (test code 0.1 See_Comment [Aut omated message] The = Monocytes #) system which generated this result tra nsmitted reference range : <=0.8. The reference r efren was not used to int erpret this result as normal/abnormal . [facility] HospitalUlskzpkVNNKNOPMWA0659-42-66 08:46:00 Test Item Value Reference Range Interpretation Comments Basophils (test code = 0.6 See_Comment [Aut omated message] The Basophils) system which ge nerated this result tra nsmitted reference range : <=1.0. The reference r efren was not used to int erpret this result as normal/abnormal . [facility] HospitalBogdewjZITDTKFDOG4590-38-11 08:46:00 Test Item Value Reference Range Interpretation Comments Neutrophils # (test code = Neutrophils 7.2 1.5-8.1 #) [facility] HospitalFdcdursCNBUGBWXFY5157-28-35 08:46:00 Test Item Value Reference Range Interpretation Comments Eosinophils (test code = 0.1 See_Comment [A utomated message] The Eosinophils) system which ge nerated this result tra nsmitted reference range : <=4.0. The reference r efren was not used to int erpret this result as normal/abnormal . [facility] HospitalHrtgxcjGCLKLWGKNF5286-05-93 08:46:00 Test Item Value Reference Range Interpretation Comments Monocytes (test code = Monocytes) 0.9 2.0-12.0 [facility] HospitalVmftfzmKAFDJSPUSK1650-22-94 08:46:00 Test Item Value Reference Range Interpretation Comments Lymphocytes (test code = Lymphocytes) 10.5 20.0-40.0 [facility] HospitalTjljyguYOVMPLOVVC7116-88-61 08:46:00 Test Item Value Reference Range Interpretation Comments Segs (test code = Segs) 87.9 45.0-75.0 [facility] HospitalHvnrtdiNBRAYMIIRU1725-43-21 08:46:00 Test Item Value Reference Range Interpretation Comments Plt Morph (test code = Normal (06/28/18 3:46 Plt Morph) AM) [facility] HospitalOyahrzxKXTPDXCALV6738-73-89 08:46:00 Test Item Value Reference Range Interpretation Comments RBC Morph (test code = Normal (06/28/18 3:46 RBC Morph) AM) [facility]ATHY[facility] ITCWQUL3353-70-08 08:46:00 Test Item Value Reference Range Interpretation Comments Ca Ion WB (test code = Ca Ion WB) 1.15 1.05-1.25 [facility] CBJHIVG7119-39-63 08:46:00 Test Item Value Reference Range Interpretation Comments Ca Norm WB (test code = Ca Norm WB) 1.13 1.05-1.25 [facility] [employer] XVPHBEV3571-39-13 08:46:00 Test Item Value Reference Range Interpretation Comments Antibody Scrn (test Negative (06/28/18 3:46 code = Antibody Scrn) AM) [facility] [employer] GZXHFCI5762-23-52 08:46:00 Test Item Value Reference Range Interpretation Comments ABO/Rh (test code = ABO/Rh) O POS [facility] [employer] QWKUE9333-72-71 08:46:00 Test Item Value Reference Range Interpretation Comments Magnesium Lvl (test code = Magnesium 1.9 1.8-2.4 Lvl) [facility] [employer] IRSVZ2955-27-02 08:46:00 Test Item Value Reference Range Interpretation Comments Phosphorus (test code = Phosphorus) 1.9 2.5-4.5 [facility] AkesyzuEJVLAWRWAMHC7430-55-72 08:46:00 Test Item Value Reference Range Interpretation Comments AGAP (test code = AGAP) 13.0 10.0-20.0 [facility] YohpckwOMTHDBLPAYDC0425-36-76 08:46:00 Test Item Value Reference Range Interpretation Comments eGFR (test code = eGFR) 37 [facility] [employer] NZFAZZH6960-91-57 08:46:00 Test Item Value Reference Range Interpretation Comments Antibody Scrn (test Negative (06/28/18 3:46 code = Antibody Scrn) AM) [facility] AbsuuduBPJIWDENDONJ9039-32-30 08:46:00 Test Item Value Reference Range Interpretation Comments Calcium Lvl (test code = Calcium Lvl) 8.4 8.5-10.5 [facility] ZzudjqqYCEZLMNOZEPG7950-14-61 08:46:00 Test Item Value Reference Range Interpretation Comments BUN (test code = BUN) 26 7-22 [facility] QqevnqhGDCVYITQXRHU7355-07-44 08:46:00 Test Item Value Reference Range Interpretation Comments Glucose Lvl (test code = Glucose Lvl) 119 70-99 [facility] QurboetWQOIELSMLCIS0942-48-57 08:46:00 Test Item Value Reference Range Interpretation Comments Potassium Lvl (test code = Potassium 4.0 3.5-5.1 Lvl) [facility]RltldlsNECLMXHTTTKV8782-88-15 08:46:00 Test Item Value Reference Range Interpretation Comments Sodium Lvl (test code = Sodium Lvl) 144 135-145 [facility] HospitalTmhfvkgFNENXWLOSVVT8995-10-65 08:46:00 Test Item Value Reference Range Interpretation Comments Creatinine Lvl (test code = Creatinine 1.76 0.50-1.40 Lvl) [facility] HospitalGuofxmlYCNXIIHKWITJ7762-98-35 08:46:00 Test Item Value Reference Range Interpretation Comments Chloride Lvl (test code = Chloride Lvl) 114 95-109 [facility] HospitalMtmqlybIHYCIDZTOLQT3498-05-62 08:46:00 Test Item Value Reference Range Interpretation Comments CO2 (test code = CO2) 24-32 [facility] HospitalYwhcdnxPPUGDILAVN7794-61-84 08:46:00 Test Item Value Reference Range Interpretation Comments INR (test code = INR) 1.07 1 0.85-1.17 [facility] HospitalDdjxvnjZCBPAADEFN2865-39-82 08:46:00 Test Item Value Reference Range Interpretation Comments PT (test code = PT) 13.7 s 12.0-14.7 [facility] UQJPQSP1207-31-51 08:46:00 Test Item Value Reference Range Interpretation Comments ABO/Rh (test code = ABO/Rh) O POS [facility] HospitalZtwmnnzFSDWCKFEAA1110-26-99 08:46:00 Test Item Value Reference Range Interpretation Comments PTT (test code = PTT) 27.4 s 22.9-35.8 [facility] HospitalIltbfnnMCYUKPCXTO8038-54-36 08:46:00 Test Item Value Reference Range Interpretation Comments TEG Interp (test Thrombelastograph results code = TEG show shortened value of R. Interp) This finding is suggestive of enzymatic hypercoagulation. CPT:20494 [facility] HospitalWohdpgqSXPKNSXAPZ8028-95-28 08:46:00 Test Item Value Reference Range Interpretation Comments Coag Index (test code 3.2 1 See_Comment [Auto mated message] The = Coag Index) system which g enerated this result transmit emory reference range : <=3.0. The reference range was not used to interpr et this result as dori l/abnormal. [facility] HospitalSeuenksWJAYATFNKV6743-40-62 08:46:00 Test Item Value Reference Range Interpretation Comments TEG Data (test code = See Note (06/28/18 3:46 TEG Data) AM) [facility] HospitalQokozdkZPGCMJBNUK9838-78-23 08:46:00 Test Item Value Reference Range Interpretation Comments G-value (test code = G-value) 9.8 4.5-11.0 [facility] HospitalDtjqwynLIEHMFPJTC6417-95-56 08:46:00 Test Item Value Reference Range Interpretation Comments Ly30 (test code = 0.0 See_Comment [Automate d message] The Ly30) system which ge nerated this result transmit emory reference range : <=7.5. The reference range was not used to interpr et this result as dori l/abnormal. [facility] HospitalYjifdgvBSYLOYPZRK3420-28-17 08:46:00 Test Item Value Reference Range Interpretation Comments Max Amp (test code = Max Amp) 66.3 mm 50.0-70.0 [facility] HospitalKttvmduPGVUKYRPJM2936-30-34 08:46:00 Test Item Value Reference Range Interpretation Comments K-time (test code = K-time) 1.7 min 1.0-3.0 [facility] HospitalMvmrdbgEPRRFLIQVZ9421-13-94 08:46:00 Test Item Value Reference Range Interpretation Comments Angle (test code = Angle) 68.4 degrees 53.0-72.0 [facility] HospitalHltkakdFLOTQBNOBH4479-52-69 08:46:00 Test Item Value Reference Range Interpretation Comments R-time (test code = R-time) 2.6 min 5.0-10.0 [facility]2019-03-21 08:46:00 Test Item Value Reference Range Interpretation Comments Magnesium Lvl (test code = Magnesium 1.9 1.8-2.4 Lvl) [facility] HospitalFbgzkcsJFRBRAOWCW1056-56-03 08:46:00 Test Item Value Reference Range Interpretation Comments WBC (test code = WBC) 8.2 3.7-10.4 [facility] HospitalQgaladfNOJVECGAWI3828-74-14 08:46:00 Test Item Value Reference Range Interpretation Comments MCHC (test code = MCHC) 33.7 32.0-36.0 [facility] HospitalLprnfmjBEVPELBZTD6367-22-95 08:46:00 Test Item Value Reference Range Interpretation Comments MCH (test code = MCH) 30.3 pg 27.0-31.0 [facility] HospitalVbrmehrNUZQRPKTLA2979-74-23 08:46:00 Test Item Value Reference Range Interpretation Comments MCV (test code = MCV) 90.1 80.0-94.0 [facility] HospitalLghbakyTIBRHQOEQM1361-84-11 08:46:00 Test Item Value Reference Range Interpretation Comments Hgb (test code = Hgb) 12.7 14.0-18.0 [facility] HospitalEajhcksVLQCDXQPRH6805-03-86 08:46:00 Test Item Value Reference Range Interpretation Comments RBC (test code = RBC) 4.18 4.70-6.10 [facility] HospitalLmoxsuhLUGUIEIDYP2856-45-88 08:46:00 Test Item Value Reference Range Interpretation Comments Hct (test code = Hct) 37.7 42.0-54.0 [facility] HospitalUzdwcupGKXWQSBLUI5130-18-50 08:46:00 Test Item Value Reference Range Interpretation Comments RDW (test code = RDW) 16.1 11.5-14.5 [facility] HospitalEvjkdmlFQPSCXNSBV4557-39-82 08:46:00 Test Item Value Reference Range Interpretation Comments MPV (test code = MPV) 8.6 7.4-10.4 [facility] HospitalWszsukfEVMYCCTHWF3588-40-07 08:46:00 Test Item Value Reference Range Interpretation Comments Platelet (test code = Platelet) 203 133-450 [facility] ZAYJX3367-92-95 08:46:00 Test Item Value Reference Range Interpretation Comments Phosphorus (test code = Phosphorus) 1.9 2.5-4.5 [facility] HospitalLluzyhtGHEOIPPKTU4522-02-83 08:46:00 Test Item Value Reference Range Interpretation Comments Lymphocytes # (test code = Lymphocytes 0.9 1.0-5.5 #) [facility] HospitalKccyeuzKKMPJYIUQB3533-91-24 08:46:00 Test Item Value Reference Range Interpretation Comments Monocytes # (test code 0.1 See_Comment [Aut omated message] The = Monocytes #) system which generated this result tra nsmitted reference range : <=0.8. The reference r efren was not used to int erpret this result as normal/abnormal . [facility] HospitalUfsfzikJHEAYIORIQ6472-21-70 08:46:00 Test Item Value Reference Range Interpretation Comments Basophils (test code = 0.6 See_Comment [Aut omated message] The Basophils) system which ge nerated this result tra nsmitted reference range : <=1.0. The reference r efren was not used to int erpret this result as normal/abnormal . [facility] HospitalQpwjjwuWBUQFHJYAT4289-92-45 08:46:00 Test Item Value Reference Range Interpretation Comments Neutrophils # (test code = Neutrophils 7.2 1.5-8.1 #) [facility] HospitalVwdwtajAZSCZVCHOZ8798-85-36 08:46:00 Test Item Value Reference Range Interpretation Comments Eosinophils (test code = 0.1 See_Comment [A utomated message] The Eosinophils) system which ge nerated this result tra nsmitted reference range : <=4.0. The reference r efren was not used to int erpret this result as normal/abnormal . [facility] HospitalVqrqgwnMMBKJOCYXO2013-91-10 08:46:00 Test Item Value Reference Range Interpretation Comments Monocytes (test code = Monocytes) 0.9 2.0-12.0 [facility] HospitalXkvcdrvFMNUDOGBOY2584-87-93 08:46:00 Test Item Value Reference Range Interpretation Comments Lymphocytes (test code = Lymphocytes) 10.5 20.0-40.0 [facility] HospitalKyeskpcUMVWLPSJTA6445-83-18 08:46:00 Test Item Value Reference Range Interpretation Comments Segs (test code = Segs) 87.9 45.0-75.0 [facility] HospitalBbahyvdNIPJSHCNEJ4544-50-15 08:46:00 Test Item Value Reference Range Interpretation Comments Plt Morph (test code = Normal (06/28/18 3:46 Plt Morph) AM) [facility] HospitalMgsixatVPAZJVGQFV1452-89-48 08:46:00 Test Item Value Reference Range Interpretation Comments RBC Morph (test code = Normal (06/28/18 3:46 RBC Morph) AM) [facility] CenterIolbzoxRLRHGHXOCGWV7849-23-00 08:46:00 Test Item Value Reference Range Interpretation Comments AGAP (test code = AGAP) 13.0 10.0-20.0 [facility]ATHY[facility] YFNDUVM3317-54-07 08:46:00 Test Item Value Reference Range Interpretation Comments Ca Ion WB (test code = Ca Ion WB) 1.15 1.05-1.25 [facility] SZBRZRN0083-65-33 08:46:00 Test Item Value Reference Range Interpretation Comments Ca Norm WB (test code = Ca Norm WB) 1.13 1.05-1.25 [facility]RxuxagrHUTWNPSRJAKF5810-13-57 08:46:00 Test Item Value Reference Range Interpretation Comments eGFR (test code = eGFR) 37 [facility]EvuvwopGHRXMCANDNCB6140-25-03 08:46:00 Test Item Value Reference Range Interpretation Comments Calcium Lvl (test code = Calcium Lvl) 8.4 8.5-10.5 [facility] HospitalWsruqscNUOFFPSQGLYC4312-74-14 08:46:00 Test Item Value Reference Range Interpretation Comments BUN (test code = BUN) 26 7-22 [facility] HospitalAnyikcaPNOYUIDTCASI9219-61-79 08:46:00 Test Item Value Reference Range Interpretation Comments Glucose Lvl (test code = Glucose Lvl) 119 70-99 [facility] HospitalYrpyzdkYQHHOGFGELRV2464-36-80 08:46:00 Test Item Value Reference Range Interpretation Comments Potassium Lvl (test code = Potassium 4.0 3.5-5.1 Lvl) [facility] HospitalDgepyjsGCYSHVLAIXXA3267-40-26 08:46:00 Test Item Value Reference Range Interpretation Comments Sodium Lvl (test code = Sodium Lvl) 144 135-145 [facility] HospitalUgcpwixJGCSCULLXHTQ3726-83-82 08:46:00 Test Item Value Reference Range Interpretation Comments Creatinine Lvl (test code = Creatinine 1.76 0.50-1.40 Lvl) [facility] HospitalBvixerlCGILAPXNKJPD8656-52-69 08:46:00 Test Item Value Reference Range Interpretation Comments Chloride Lvl (test code = Chloride Lvl) 114 95-109 [facility] HospitalLujfngkQUVJDXVCBHZA9465-46-54 08:46:00 Test Item Value Reference Range Interpretation Comments CO2 (test code = CO2) 21 24-32 [facility] HospitalFxyhsqwUWOAJZSCDZ7211-33-52 08:46:00 Test Item Value Reference Range Interpretation Comments INR (test code = INR) 1.07 1 0.85-1.17 [facility] HospitalPwgblrqFFFDVIWLJA4201-04-87 08:46:00 Test Item Value Reference Range Interpretation Comments PT (test code = PT) 13.7 s 12.0-14.7 [facility] HospitalAlrmytmTLLXWHPTWJ5556-58-24 08:46:00 Test Item Value Reference Range Interpretation Comments PTT (test code = PTT) 27.4 s 22.9-35.8 [facility] HospitalCzpyyfyQPQOETNHVD9836-27-70 08:46:00 Test Item Value Reference Range Interpretation Comments TEG Interp (test Thrombelastograph results code = TEG show shortened value of R. Interp) This finding is suggestive of enzymatic hypercoagulation. CPT:80712 [facility] HospitalYrgblcrJPBDCKAFMF1552-82-54 08:46:00 Test Item Value Reference Range Interpretation Comments Coag Index (test code 3.2 1 See_Comment [Auto mated message] The = Coag Index) system which g enerated this result transmit emory reference range : <=3.0. The reference range was not used to interpr et this result as dori l/abnormal. [facility] HospitalKhltjrdIWQVQLDQUT8614-73-19 08:46:00 Test Item Value Reference Range Interpretation Comments TEG Data (test code = See Note (06/28/18 3:46 TEG Data) AM) [facility] HospitalGmaghfzKZTJMBNUVN2033-88-22 08:46:00 Test Item Value Reference Range Interpretation Comments G-value (test code = G-value) 9.8 4.5-11.0 [facility] HospitalYbhwtcsAEUFLHKKTM7757-07-25 08:46:00 Test Item Value Reference Range Interpretation Comments Ly30 (test code = 0.0 See_Comment [Automate d message] The Ly30) system which ge nerated this result transmit emory reference range : <=7.5. The reference range was not used to interpr et this result as dori l/abnormal. [facility] HospitalJlidsetVGKVRCMLJD2420-50-51 08:46:00 Test Item Value Reference Range Interpretation Comments Max Amp (test code = Max Amp) 66.3 mm 50.0-70.0 [facility] HospitalKqyxuhaBEKUUWGYXA8364-01-80 08:46:00 Test Item Value Reference Range Interpretation Comments K-time (test code = K-time) 1.7 min 1.0-3.0 [facility] HospitalGihpeuqPQMFTEBLUQ4387-24-46 08:46:00 Test Item Value Reference Range Interpretation Comments Angle (test code = Angle) 68.4 degrees 53.0-72.0 [facility] HospitalGqzrtxiQWOKKJUQMG3259-40-46 08:46:00 Test Item Value Reference Range Interpretation Comments R-time (test code = R-time) 2.6 min 5.0-10.[address] [facility]The Political Student JZREZRX6116-15-65 08:46:00 Test Item Value Reference Range Interpretation Comments Antibody Scrn (test Negative (06/28/18 3:46 code = Antibody Scrn) AM) [facility] GDUQZKL6887-77-66 08:46:00 Test Item Value Reference Range Interpretation Comments ABO/Rh (test code = ABO/Rh) O POS [facility] HGDKX1709-21-68 08:46:00 Test Item Value Reference Range Interpretation Comments Magnesium Lvl (test code = Magnesium 1.9 1.8-2.4 Lvl) [facility] WJFPT4977-02-92 08:46:00 Test Item Value Reference Range Interpretation Comments Phosphorus (test code = Phosphorus) 1.9 2.5-4.5 [facility] HospitalHqaqakiUMFCADBOIHPG5223-50-38 08:46:00 Test Item Value Reference Range Interpretation Comments AGAP (test code = AGAP) 13.0 10.0-20.0 [facility] CenterEoscegsJBQROFOLOW0049-92-73 08:46:00 Test Item Value Reference Range Interpretation Comments WBC (test code = WBC) 8.2 3.7-10.4 [facility] HospitalQxvebfzPYSFRDTZCISG8442-14-61 08:46:00 Test Item Value Reference Range Interpretation Comments eGFR (test code = eGFR) 37 [facility] HospitalLmbsckxUJTKJFJOCFMX8312-17-84 08:46:00 Test Item Value Reference Range Interpretation Comments Calcium Lvl (test code = Calcium Lvl) 8.4 8.5-10.5 [facility] HospitalSmlakluDOURITWQTUUG2245-79-62 08:46:00 Test Item Value Reference Range Interpretation Comments BUN (test code = BUN) 26 7-22 [facility] HospitalIdhcuonDRCXYCKPRGWH1647-11-75 08:46:00 Test Item Value Reference Range Interpretation Comments Glucose Lvl (test code = Glucose Lvl) 119 70-99 [facility] HospitalAmldduxRCTNBCMBVRUP5350-69-17 08:46:00 Test Item Value Reference Range Interpretation Comments Potassium Lvl (test code = Potassium 4.0 3.5-5.1 Lvl) [facility] HospitalEkquspeJIQLAOZPWEVX8569-18-59 08:46:00 Test Item Value Reference Range Interpretation Comments Sodium Lvl (test code = Sodium Lvl) 144 135-145 [facility] HospitalEdtwidsIXTAVQGROWZB3856-13-34 08:46:00 Test Item Value Reference Range Interpretation Comments Creatinine Lvl (test code = Creatinine 1.76 0.50-1.40 Lvl) [facility] HospitalWaadsaqRWCRLVKMIBKN2784-66-66 08:46:00 Test Item Value Reference Range Interpretation Comments Chloride Lvl (test code = Chloride Lvl) 114 95-109 [facility] HospitalBlpwyocDJJETOFLVWFS4941-05-52 08:46:00 Test Item Value Reference Range Interpretation Comments CO2 (test code = CO2) 21 24-32 [facility] HospitalUsxuaoyTURVKWMLPA6150-39-55 08:46:00 Test Item Value Reference Range Interpretation Comments INR (test code = INR) 1.07 1 0.85-1.17 [facility] HospitalXedtlewNUIFEPAGPO3355-81-92 08:46:00 Test Item Value Reference Range Interpretation Comments MCHC (test code = MCHC) 33.7 32.0-36.0 [facility] HospitalCudetadANRWEKGKNB9114-07-17 08:46:00 Test Item Value Reference Range Interpretation Comments PT (test code = PT) 13.7 s 12.0-14.7 [facility] HospitalDfsomnpWMZVXKRHJS9542-38-13 08:46:00 Test Item Value Reference Range Interpretation Comments PTT (test code = PTT) 27.4 s 22.9-35.8 [facility] HospitalFkljcmiSSPQLLFBBP5493-85-62 08:46:00 Test Item Value Reference Range Interpretation Comments TEG Interp (test Thrombelastograph results code = TEG show shortened value of R. Interp) This finding is suggestive of enzymatic hypercoagulation. CPT:67972 [facility] HospitalUipznvePNSXNNCJZY3405-98-11 08:46:00 Test Item Value Reference Range Interpretation Comments Coag Index (test code 3.2 1 See_Comment [Auto mated message] The = Coag Index) system which g enerated this result transmit emory reference range : <=3.0. The reference range was not used to interpr et this result as dori l/abnormal. [facility] HospitalPjncttpLHBOEBHVBQ8679-43-38 08:46:00 Test Item Value Reference Range Interpretation Comments TEG Data (test code = See Note (06/28/18 3:46 TEG Data) AM) [facility] HospitalJagygcvPRJWMNKMLV9435-12-20 08:46:00 Test Item Value Reference Range Interpretation Comments G-value (test code = G-value) 9.8 4.5-11.0 [facility] HospitalDzobagmBMSCZYQMWM4675-70-50 08:46:00 Test Item Value Reference Range Interpretation Comments Ly30 (test code = 0.0 See_Comment [Automate d message] The Ly30) system which ge nerated this result transmit emory reference range : <=7.5. The reference range was not used to interpr et this result as dori l/abnormal. [facility] HospitalAowmufcXIKGJTOMON4333-25-62 08:46:00 Test Item Value Reference Range Interpretation Comments Max Amp (test code = Max Amp) 66.3 mm 50.0-70.0 [facility] HospitalDsfszemQSHKAGYOEZ9448-46-33 08:46:00 Test Item Value Reference Range Interpretation Comments K-time (test code = K-time) 1.7 min 1.0-3.0 [facility] HospitalIkyxomaFTKOVQACKO8152-23-97 08:46:00 Test Item Value Reference Range Interpretation Comments Angle (test code = Angle) 68.4 degrees 53.0-72.0 [facility] HospitalMhtloxbJCURXGHDWI7452-21-45 08:46:00 Test Item Value Reference Range Interpretation Comments MCH (test code = MCH) 30.3 pg 27.0-31.0 [facility] HospitalYouytsyXIQFDBQRZS0915-48-83 08:46:00 Test Item Value Reference Range Interpretation Comments R-time (test code = R-time) 2.6 min 5.0-10.0 [facility] HospitalKhwmejtHGZCMSBPQS3983-49-22 08:46:00 Test Item Value Reference Range Interpretation Comments WBC (test code = WBC) 8.2 3.7-10.4 [facility] HospitalSrrcqccGYJNRJGTZW6583-73-04 08:46:00 Test Item Value Reference Range Interpretation Comments MCHC (test code = MCHC) 33.7 32.0-36.0 [facility] HospitalZsadqqtSDGIPXDBLU1018-45-28 08:46:00 Test Item Value Reference Range Interpretation Comments MCH (test code = MCH) 30.3 pg 27.0-31.0 [facility] HospitalBytdcykXEORTRSWNU1407-28-63 08:46:00 Test Item Value Reference Range Interpretation Comments MCV (test code = MCV) 90.1 80.0-94.0 [facility] HospitalWhibpsjJRZJCBQVRM3477-55-24 08:46:00 Test Item Value Reference Range Interpretation Comments Hgb (test code = Hgb) 12.7 14.0-18.0 [facility] HospitalQkdebkbIZFLKTBRXE9559-97-92 08:46:00 Test Item Value Reference Range Interpretation Comments RBC (test code = RBC) 4.18 4.70-6.10 [facility] HospitalFqlsuejRTFRUIHAMH3396-40-13 08:46:00 Test Item Value Reference Range Interpretation Comments Hct (test code = Hct) 37.7 42.0-54.0 [facility] HospitalHsrzkjbHKSQYMVEWQ4591-89-52 08:46:00 Test Item Value Reference Range Interpretation Comments RDW (test code = RDW) 16.1 11.5-14.5 [place] 807209-03-21 08:46:00 Test Item Value Reference Range Interpretation Comments MPV (test code = MPV) 8.6 7.4-10.4 [facility] HospitalPwyrhbgEEDIXZVVTM0685-50-93 08:46:00 Test Item Value Reference Range Interpretation Comments MCV (test code = MCV) 90.1 80.0-94.0 [facility] HospitalGqyibobSOLVZVQMLF1879-93-81 08:46:00 Test Item Value Reference Range Interpretation Comments Platelet (test code = Platelet) 203 133-450 [facility] HospitalHrbzwidPMSJOJQJGZ1676-71-86 08:46:00 Test Item Value Reference Range Interpretation Comments Lymphocytes # (test code = Lymphocytes 0.9 1.0-5.5 #) [facility] HospitalIknkaezLVDGLJNRSA9693-37-20 08:46:00 Test Item Value Reference Range Interpretation Comments Monocytes # (test code 0.1 See_Comment [Aut omated message] The = Monocytes #) system which generated this result tra nsmitted reference range : <=0.8. The reference r efren was not used to int erpret this result as normal/abnormal . [facility] HospitalQwsjodmEVPYZUWRLM9030-75-06 08:46:00 Test Item Value Reference Range Interpretation Comments Basophils (test code = 0.6 See_Comment [Aut omated message] The Basophils) system which ge nerated this result tra nsmitted reference range : <=1.0. The reference r efren was not used to int erpret this result as normal/abnormal . [facility] HospitalWwumatsGCISZNSAPC8931-45-62 08:46:00 Test Item Value Reference Range Interpretation Comments Neutrophils # (test code = Neutrophils 7.2 1.5-8.1 #) [facility] HospitalTxyavbmPHNVOQPHDP6131-49-01 08:46:00 Test Item Value Reference Range Interpretation Comments Eosinophils (test code = 0.1 See_Comment [A utomated message] The Eosinophils) system which ge nerated this result tra nsmitted reference range : <=4.0. The reference r efren was not used to int erpret this result as normal/abnormal . [facility] HospitalMfofpjjRYYNXLHWIQ3286-20-06 08:46:00 Test Item Value Reference Range Interpretation Comments Monocytes (test code = Monocytes) 0.9 2.0-12.0 [facility] HospitalBokvcqoCVEOFZGQHG5666-93-09 08:46:00 Test Item Value Reference Range Interpretation Comments Lymphocytes (test code = Lymphocytes) 10.5 20.0-40.0 [facility] HospitalAzclgofQOHZIEVIFN7248-10-08 08:46:00 Test Item Value Reference Range Interpretation Comments Segs (test code = Segs) 87.9 45.0-75.0 [facility] HospitalEkrlxlqWHLUNPTPAF7573-09-28 08:46:00 Test Item Value Reference Range Interpretation Comments Plt Morph (test code = Normal (06/28/18 3:46 Plt Morph) AM) [facility] HospitalVafqthlVIARSDUHMD6447-90-17 08:46:00 Test Item Value Reference Range Interpretation Comments Hgb (test code = Hgb) 12.7 14.0-18.0 [facility] HospitalXpwknkbBCSPCWQNJS6218-18-60 08:46:00 Test Item Value Reference Range Interpretation Comments RBC Morph (test code = Normal (06/28/18 3:46 RBC Morph) AM) [facility]2019-03-21 08:46:00 Test Item Value Reference Range Interpretation Comments Ca Ion WB (test code = Ca Ion WB) 1.15 1.05-1.25 [facility]2019-03-21 08:46:00 Test Item Value Reference Range Interpretation Comments Ca Norm WB (test code = Ca Norm WB) 1.13 1.05-1.25 [facility] HospitalPiqthhyQFDEGWADQT8071-18-41 08:46:00 Test Item Value Reference Range Interpretation Comments RBC (test code = RBC) 4.18 4.70-6.10 [facility] HospitalGopjnzjHPGZAPTKPY7005-16-00 08:46:00 Test Item Value Reference Range Interpretation Comments Hct (test code = Hct) 37.7 42.0-54.0 [facility] HospitalMpclofqCBWPISZQBL7259-16-99 08:46:00 Test Item Value Reference Range Interpretation Comments RDW (test code = RDW) 16.1 11.5-14.5 [facility] HospitalUquiyntOJSFTHAJXW9694-52-08 08:46:00 Test Item Value Reference Range Interpretation Comments MPV (test code = MPV) 8.6 7.4-10.4 [facility] HospitalSixljqmIDHMFQQPDS3506-88-58 08:46:00 Test Item Value Reference Range Interpretation Comments Platelet (test code = Platelet) 203 133-450 [facility] HospitalIoufonlCQIJGPADEW6688-31-79 08:46:00 Test Item Value Reference Range Interpretation Comments Lymphocytes # (test code = Lymphocytes 0.9 1.0-5.5 #) [facility] HospitalXpyexslVFMEXELLEF3591-62-61 08:46:00 Test Item Value Reference Range Interpretation Comments Monocytes # (test code 0.1 See_Comment [Aut omated message] The = Monocytes #) system which generated this result tra nsmitted reference range : <=0.8. The reference r efren was not used to int erpret this result as normal/abnormal . [facility] HospitalVkzufrjGBOSAGEVAN1333-40-05 08:46:00 Test Item Value Reference Range Interpretation Comments Basophils (test code = 0.6 See_Comment [Aut omated message] The Basophils) system which ge nerated this result tra nsmitted reference range : <=1.0. The reference r efren was not used to int erpret this result as normal/abnormal . [facility] HospitalNvmjzkyZPGSUZTIYJ5808-39-77 08:46:00 Test Item Value Reference Range Interpretation Comments Neutrophils # (test code = Neutrophils 7.2 1.5-8.1 #) [facility] HospitalNaeoyusOOWYDYJCDH6315-76-13 08:46:00 Test Item Value Reference Range Interpretation Comments Eosinophils (test code = 0.1 See_Comment [A utomated message] The Eosinophils) system which ge nerated this result tra nsmitted reference range : <=4.0. The reference r efren was not used to int erpret this result as normal/abnormal . [facility] HospitalKmwcbqzWQMSKYQDHS4050-58-14 08:46:00 Test Item Value Reference Range Interpretation Comments Monocytes (test code = Monocytes) 0.9 2.0-12.0 [facility] HospitalTxpwnavIARHAAMOAN6056-75-35 08:46:00 Test Item Value Reference Range Interpretation Comments Lymphocytes (test code = Lymphocytes) 10.5 20.0-40.0 [facility] HospitalNgdgolmFJNPOMPPCF3016-15-16 08:46:00 Test Item Value Reference Range Interpretation Comments Segs (test code = Segs) 87.9 45.0-75.0 [facility] CenterXexmrlaUPYAOSHNBG3077-95-62 08:46:00 Test Item Value Reference Range Interpretation Comments Plt Morph (test code = Normal (06/28/18 3:46 Plt Morph) AM) [facility] CenterNbkxcklWATYHHVJAS3424-58-64 08:46:00 Test Item Value Reference Range Interpretation Comments RBC Morph (test code = Normal (06/28/18 3:46 RBC Morph) AM) [facility] HospitalMaxTradeIn.comROID XIHZTGO9941-35-76 08:46:00 Test Item Value Reference Range Interpretation Comments Ca Ion WB (test code = Ca Ion WB) 1.15 1.05-1.25 [facility] MeriTaleemHEALTHALLIANCE HOSPITAL[facility] M[facility]’S AVENUE CAMPUSROID HSRXDHO3155-26-59 08:46:00 Test Item Value Reference Range Interpretation Comments Ca Norm WB (test code = Ca Norm WB) 1.13 1.05-1.25 [facility] [employer] GFHHCAO8488-12-85 08:46:00 Test Item Value Reference Range Interpretation Comments Antibody Scrn (test Negative (06/28/18 3:46 code = Antibody Scrn) AM) [facility] [employer] PCFBKSG7549-22-64 08:46:00 Test Item Value Reference Range Interpretation Comments ABO/Rh (test code = ABO/Rh) O POS [facility] [employer] KKAIZ4154-80-14 08:46:00 Test Item Value Reference Range Interpretation Comments Magnesium Lvl (test code = Magnesium 1.9 1.8-2.4 Lvl) [facility] [employer] UKYQP2005-05-55 08:46:00 Test Item Value Reference Range Interpretation Comments Phosphorus (test code = Phosphorus) 1.9 2.5-4.5 [facility] GrvhoukSXPNBRVHRUJB1389-04-77 08:46:00 Test Item Value Reference Range Interpretation Comments AGAP (test code = AGAP) 13.0 10.0-20.0 [facility] GvriznwGTSOZEMKLHEK6731-11-70 08:46:00 Test Item Value Reference Range Interpretation Comments eGFR (test code = eGFR) 37 [facility] IstngccYDPQOMHWEAPZ3742-12-98 08:46:00 Test Item Value Reference Range Interpretation Comments Calcium Lvl (test code = Calcium Lvl) 8.4 8.5-10.5 [facility] HospitalPnaxodgQXRKWOETXCYM5736-92-35 08:46:00 Test Item Value Reference Range Interpretation Comments BUN (test code = BUN) 26 7-22 [facility]PvndwceHFGSVMZVOJIO6335-59-22 08:46:00 Test Item Value Reference Range Interpretation Comments Glucose Lvl (test code = Glucose Lvl) 119 70-99 [facility] HospitalOzsbkbsEQTPGFCTETIF4062-07-66 08:46:00 Test Item Value Reference Range Interpretation Comments Potassium Lvl (test code = Potassium 4.0 3.5-5.1 Lvl) [facility] HospitalBvgrnwyDEJTHDWCOTUP7390-30-24 08:46:00 Test Item Value Reference Range Interpretation Comments Sodium Lvl (test code = Sodium Lvl) 144 135-145 [facility] HospitalKgkaufpHYLRKMHABHPD8108-79-32 08:46:00 Test Item Value Reference Range Interpretation Comments Creatinine Lvl (test code = Creatinine 1.76 0.50-1.40 Lvl) [facility] HospitalNxccynzPDVXMYNJHQAV7349-56-03 08:46:00 Test Item Value Reference Range Interpretation Comments Chloride Lvl (test code = Chloride Lvl) 114 95-109 [facility] HospitalTypnzzhEULXSEZAUZQE0296-54-13 08:46:00 Test Item Value Reference Range Interpretation Comments CO2 (test code = CO2) 21 24-32 [facility] HospitalCudxpptDQRFCOURQX1535-84-96 08:46:00 Test Item Value Reference Range Interpretation Comments INR (test code = INR) 1.07 1 0.85-1.17 [facility] HospitalVwbvehfWRWJJOFADY9420-66-06 08:46:00 Test Item Value Reference Range Interpretation Comments PT (test code = PT) 13.7 s 12.0-14.7 [facility] HospitalTmovyxfPKGRFVSZTQ2029-35-74 08:46:00 Test Item Value Reference Range Interpretation Comments PTT (test code = PTT) 27.4 s 22.9-35.8 [place] 807209-03-21 08:46:00 Test Item Value Reference Range Interpretation Comments TEG Interp (test Thrombelastograph results code = TEG show shortened value of R. Interp) This finding is suggestive of enzymatic hypercoagulation. CPT:86829 [facility] HospitalZhvgqlxHHMFWVORWO3213-33-41 08:46:00 Test Item Value Reference Range Interpretation Comments Coag Index (test code 3.2 1 See_Comment [Auto mated message] The = Coag Index) system which g enerated this result transmit emory reference range : <=3.0. The reference range was not used to interpr et this result as dori l/abnormal. [facility] HospitalEqctzwgMLVRQNSWET6306-58-41 08:46:00 Test Item Value Reference Range Interpretation Comments TEG Data (test code = See Note (06/28/18 3:46 TEG Data) AM) [facility] HospitalNkrgtebYRCVNTXXXA2169-69-63 08:46:00 Test Item Value Reference Range Interpretation Comments G-value (test code = G-value) 9.8 4.5-11.0 [facility] HospitalIwuwygcCQFTXQAKXF7357-08-18 08:46:00 Test Item Value Reference Range Interpretation Comments Ly30 (test code = 0.0 See_Comment [Automate d message] The Ly30) system which ge nerated this result transmit emory reference range : <=7.5. The reference range was not used to interpr et this result as dori l/abnormal. [facility] HospitalTyktftnKJCICGPREH4472-61-92 08:46:00 Test Item Value Reference Range Interpretation Comments Max Amp (test code = Max Amp) 66.3 mm 50.0-70.0 [facility] HospitalApqrwfxYUBGGDGEDH3211-96-67 08:46:00 Test Item Value Reference Range Interpretation Comments K-time (test code = K-time) 1.7 min 1.0-3.0 [facility] HospitalTmkiivrGRCPGBKEOX6992-33-93 08:46:00 Test Item Value Reference Range Interpretation Comments Angle (test code = Angle) 68.4 degrees 53.0-72.0 [facility] HospitalEvpjfwaNUXXRRBBCX9572-10-32 08:46:00 Test Item Value Reference Range Interpretation Comments R-time (test code = R-time) 2.6 min 5.0-10.0 [facility] HospitalKgnjhkcRGVAZNOFYX5652-81-29 08:46:00 Test Item Value Reference Range Interpretation Comments WBC (test code = WBC) 8.2 3.7-10.4 [facility] HospitalSaquhkeJVMSQJLMHC6201-52-13 08:46:00 Test Item Value Reference Range Interpretation Comments MCHC (test code = MCHC) 33.7 32.0-36.0 [facility] HospitalMamupasVZNSRQVCLE9871-61-20 08:46:00 Test Item Value Reference Range Interpretation Comments MCH (test code = MCH) 30.3 pg 27.0-31.0 [facility] HospitalFtvgrefHCEAZSMSUC8295-04-04 08:46:00 Test Item Value Reference Range Interpretation Comments MCV (test code = MCV) 90.1 80.0-94.0 [facility] HospitalLljpaygBGNGMPMRTX5265-26-43 08:46:00 Test Item Value Reference Range Interpretation Comments Hgb (test code = Hgb) 12.7 14.0-18.0 [place] 807209-03-21 08:46:00 Test Item Value Reference Range Interpretation Comments RBC (test code = RBC) 4.18 4.70-6.10 [facility] HospitalBcbdzexCYFDAULAJS1472-32-34 08:46:00 Test Item Value Reference Range Interpretation Comments Hct (test code = Hct) 37.7 42.0-54.0 [facility] HospitalSehxptqCBRYNVEZLZ7391-95-12 08:46:00 Test Item Value Reference Range Interpretation Comments RDW (test code = RDW) 16.1 11.5-14.5 [facility] HospitalFhcpengOTQIJBSXSO6478-91-63 08:46:00 Test Item Value Reference Range Interpretation Comments MPV (test code = MPV) 8.6 7.4-10.4 [facility] HospitalHrmmbvqBIPSXDQJGT9224-66-78 08:46:00 Test Item Value Reference Range Interpretation Comments Platelet (test code = Platelet) 203 133-450 [facility] HospitalYkywhlsVTNHAKFKWL9558-04-22 08:46:00 Test Item Value Reference Range Interpretation Comments Lymphocytes # (test code = Lymphocytes 0.9 1.0-5.5 #) [facility] HospitalGhpopedDQXUSJXPYY9593-96-53 08:46:00 Test Item Value Reference Range Interpretation Comments Monocytes # (test code 0.1 See_Comment [Aut omated message] The = Monocytes #) system which generated this result tra nsmitted reference range : <=0.8. The reference r efren was not used to int erpret this result as normal/abnormal . [facility] HospitalRszxdswFUJNZKHJNJ2847-79-06 08:46:00 Test Item Value Reference Range Interpretation Comments Basophils (test code = 0.6 See_Comment [Aut omated message] The Basophils) system which ge nerated this result tra nsmitted reference range : <=1.0. The reference r efren was not used to int erpret this result as normal/abnormal . [facility] HospitalBpseayaIHFUWPOMYS9700-71-33 08:46:00 Test Item Value Reference Range Interpretation Comments Neutrophils # (test code = Neutrophils 7.2 1.5-8.1 #) [facility] HospitalJbogfyeEMTLSSAJKZ0924-45-42 08:46:00 Test Item Value Reference Range Interpretation Comments Eosinophils (test code = 0.1 See_Comment [A utomated message] The Eosinophils) system which ge nerated this result tra nsmitted reference range : <=4.0. The reference r efren was not used to int erpret this result as normal/abnormal . [facility] HospitalTgjyujwIJCVVZWCMQ5710-62-54 08:46:00 Test Item Value Reference Range Interpretation Comments Monocytes (test code = Monocytes) 0.9 2.0-12.0 [facility] HospitalKodqijaIBJIAEWLFG7295-94-33 08:46:00 Test Item Value Reference Range Interpretation Comments Lymphocytes (test code = Lymphocytes) 10.5 20.0-40.0 [facility] HospitalLbxertfUIWHAVFFAN5184-71-50 08:46:00 Test Item Value Reference Range Interpretation Comments Segs (test code = Segs) 87.9 45.0-75.0 [facility] HospitalMkmgctlKIPXTXLGIT0002-31-83 08:46:00 Test Item Value Reference Range Interpretation Comments Plt Morph (test code = Normal (06/28/18 3:46 Plt Morph) AM) [facility] HospitalUtppybaYQSKIIRSUC9942-75-98 08:46:00 Test Item Value Reference Range Interpretation Comments RBC Morph (test code = Normal (06/28/18 3:46 RBC Morph) AM) [facility]ATHY[facility] ZUKUYXU1729-78-23 08:46:00 Test Item Value Reference Range Interpretation Comments Ca Ion WB (test code = Ca Ion WB) 1.15 1.05-1.25 [facility] DREXEOE1706-62-31 08:46:00 Test Item Value Reference Range Interpretation Comments Ca Norm WB (test code = Ca Norm WB) 1.13 1.05-1.25 [facility] OSVFUWL6510-06-19 08:46:00 Test Item Value Reference Range Interpretation Comments Antibody Scrn (test Negative (06/28/18 3:46 code = Antibody Scrn) AM) [facility] EOQQJON5880-80-65 08:46:00 Test Item Value Reference Range Interpretation Comments ABO/Rh (test code = ABO/Rh) O POS [facility] HospitalannCHEM [id number] 08:46:00 Test Item Value Reference Range Interpretation Comments Magnesium Lvl (test code = Magnesium 1.9 1.8-2.4 Lvl) [facility] ERGZB3918-07-52 08:46:00 Test Item Value Reference Range Interpretation Comments Phosphorus (test code = Phosphorus) 1.9 2.5-4.5 [facility]KfrjhbzUIWYTVYKYIXH1637-99-34 08:46:00 Test Item Value Reference Range Interpretation Comments AGAP (test code = AGAP) 13.0 10.0-20.0 [facility] HospitalUkvhhkqMWGNRSAWZRLI4031-95-63 08:46:00 Test Item Value Reference Range Interpretation Comments eGFR (test code = eGFR) 37 [facility] HospitalEifkpmtFFWKABGKHCWZ7734-11-94 08:46:00 Test Item Value Reference Range Interpretation Comments Calcium Lvl (test code = Calcium Lvl) 8.4 8.5-10.5 [facility] HospitalLziszmbKIMRQDDKNADJ9828-83-50 08:46:00 Test Item Value Reference Range Interpretation Comments BUN (test code = BUN) 26 7-22 [facility] HospitalCqwtshlEXTPNZNTGUVP6645-96-57 08:46:00 Test Item Value Reference Range Interpretation Comments Glucose Lvl (test code = Glucose Lvl) 119 70-99 [facility] HospitalMcopcryRTZVHTPGTGUN3283-82-00 08:46:00 Test Item Value Reference Range Interpretation Comments Potassium Lvl (test code = Potassium 4.0 3.5-5.1 Lvl) [facility] HospitalIfyheiwXVOCYPCTEBPR2175-90-88 08:46:00 Test Item Value Reference Range Interpretation Comments Sodium Lvl (test code = Sodium Lvl) 144 135-145 [facility] HospitalSnziabkZJWQOOXVGGJC4596-96-92 08:46:00 Test Item Value Reference Range Interpretation Comments Creatinine Lvl (test code = Creatinine 1.76 0.50-1.40 Lvl) [facility] HospitalOfmzsmuSMHOZFHHENAM2484-71-73 08:46:00 Test Item Value Reference Range Interpretation Comments Chloride Lvl (test code = Chloride Lvl) 114 95-109 [facility] HospitalEftijpbNRRIHYGALBJT1004-24-38 08:46:00 Test Item Value Reference Range Interpretation Comments CO2 (test code = CO2) 21 24-32 [facility] CenterXqlmkeiSXECYVYAVS5101-32-49 08:46:00 Test Item Value Reference Range Interpretation Comments INR (test code = INR) 1.07 1 0.85-1.17 [facility] HospitalHqpxlxcBNNHQBUBUE9957-22-88 08:46:00 Test Item Value Reference Range Interpretation Comments PT (test code = PT) 13.7 s 12.0-14.7 [facility] HospitalBlrpunvTOINJKTGSR1521-43-03 08:46:00 Test Item Value Reference Range Interpretation Comments PTT (test code = PTT) 27.4 s 22.9-35.8 [facility] HospitalEhpiainRDXIMITIBW9936-70-19 08:46:00 Test Item Value Reference Range Interpretation Comments TEG Interp (test Thrombelastograph results code = TEG show shortened value of R. Interp) This finding is suggestive of enzymatic hypercoagulation. CPT:86879 [facility] HospitalMchnzksTUNUBEDOLM4390-55-13 08:46:00 Test Item Value Reference Range Interpretation Comments Coag Index (test code 3.2 1 See_Comment [Auto mated message] The = Coag Index) system which g enerated this result transmit emroy reference range : <=3.0. The reference range was not used to interpr et this result as dori l/abnormal. [facility] HospitalHoryieoKTUEZVLSFE2459-67-66 08:46:00 Test Item Value Reference Range Interpretation Comments TEG Data (test code = See Note (06/28/18 3:46 TEG Data) AM) [facility] HospitalBgltgmoWFTJTURQRW2076-96-38 08:46:00 Test Item Value Reference Range Interpretation Comments G-value (test code = G-value) 9.8 4.5-11.0 [facility] HospitalUpeisgqOIWTGHDREX8170-02-93 08:46:00 Test Item Value Reference Range Interpretation Comments Ly30 (test code = 0.0 See_Comment [Automate d message] The Ly30) system which ge nerated this result transmit emory reference range : <=7.5. The reference range was not used to interpr et this result as dori l/abnormal. [facility] HospitalAfajznoAYJZUQNIUS3736-24-61 08:46:00 Test Item Value Reference Range Interpretation Comments Max Amp (test code = Max Amp) 66.3 mm 50.0-70.0 [facility] HospitalSjmsrciHVSJHWEHPU6998-59-05 08:46:00 Test Item Value Reference Range Interpretation Comments K-time (test code = K-time) 1.7 min 1.0-3.0 [facility] HospitalMykbzmyQWXKQBYWUI3387-49-63 08:46:00 Test Item Value Reference Range Interpretation Comments Angle (test code = Angle) 68.4 degrees 53.0-72.0 [facility] HospitalNtusccdNODQQXMROG0361-37-18 08:46:00 Test Item Value Reference Range Interpretation Comments R-time (test code = R-time) 2.6 min 5.0-10.0 [facility] HospitalFdxeuxgMKGPTIXYSW1994-38-27 08:46:00 Test Item Value Reference Range Interpretation Comments WBC (test code = WBC) 8.2 3.7-10.4 [facility] HospitalAwfsczoKNUGDBIWJV9525-43-52 08:46:00 Test Item Value Reference Range Interpretation Comments MCHC (test code = MCHC) 33.7 32.0-36.0 [facility] HospitalXqetccqSRABALFRXI0798-58-44 08:46:00 Test Item Value Reference Range Interpretation Comments MCH (test code = MCH) 30.3 pg 27.0-31.0 [facility] HospitalBqvyqtkRHIASESMLJ4147-04-47 08:46:00 Test Item Value Reference Range Interpretation Comments MCV (test code = MCV) 90.1 80.0-94.0 [facility] HospitalDcqqlsxEKBGGFDDUI6263-47-04 08:46:00 Test Item Value Reference Range Interpretation Comments Hgb (test code = Hgb) 12.7 14.0-18.0 [facility] HospitalKnnepzlFJXKDPMBZQ2701-79-35 08:46:00 Test Item Value Reference Range Interpretation Comments RBC (test code = RBC) 4.18 4.70-6.10 [facility] HospitalVoaimfoYAPXEXRVDB1785-44-02 08:46:00 Test Item Value Reference Range Interpretation Comments Hct (test code = Hct) 37.7 42.0-54.0 [facility] HospitalQpeunktTKZXPRJBSY9391-09-87 08:46:00 Test Item Value Reference Range Interpretation Comments RDW (test code = RDW) 16.1 11.5-14.5 [facility] HospitalTobztudWJWISVEKYK2525-11-88 08:46:00 Test Item Value Reference Range Interpretation Comments MPV (test code = MPV) 8.6 7.4-10.4 [facility] HospitalMwljbxaPYJIAOZUBW4846-50-22 08:46:00 Test Item Value Reference Range Interpretation Comments Platelet (test code = Platelet) 203 133-450 [facility] HospitalXxyxdxrIJJBQEQSHN2571-94-09 08:46:00 Test Item Value Reference Range Interpretation Comments Lymphocytes # (test code = Lymphocytes 0.9 1.0-5.5 #) [facility] HospitalXniraahNMNGVKMMOR9410-38-26 08:46:00 Test Item Value Reference Range Interpretation Comments Monocytes # (test code 0.1 See_Comment [Aut omated message] The = Monocytes #) system which generated this result tra nsmitted reference range : <=0.8. The reference r efren was not used to int erpret this result as normal/abnormal . [facility] HospitalLzmrtvwSNYWEJLYQW0033-54-87 08:46:00 Test Item Value Reference Range Interpretation Comments Basophils (test code = 0.6 See_Comment [Aut omated message] The Basophils) system which ge nerated this result tra nsmitted reference range : <=1.0. The reference r efren was not used to int erpret this result as normal/abnormal . [facility] HospitalUvuyqcmKIPSITACYX8349-95-77 08:46:00 Test Item Value Reference Range Interpretation Comments Neutrophils # (test code = Neutrophils 7.2 1.5-8.1 #) [facility] HospitalWmugcytKNFFIDSGCQ6371-69-36 08:46:00 Test Item Value Reference Range Interpretation Comments Eosinophils (test code = 0.1 See_Comment [A utomated message] The Eosinophils) system which ge nerated this result tra nsmitted reference range : <=4.0. The reference r efren was not used to int erpret this result as normal/abnormal . [facility] HospitalLmncrqcHYWIFGJJDI8953-58-88 08:46:00 Test Item Value Reference Range Interpretation Comments Monocytes (test code = Monocytes) 0.9 2.0-12.0 [facility] HospitalLjfopuwTZHWXBEUCA3905-05-63 08:46:00 Test Item Value Reference Range Interpretation Comments Lymphocytes (test code = Lymphocytes) 10.5 20.0-40.0 [facility] HospitalAnvkhsmOMLSIMRIDS8418-92-60 08:46:00 Test Item Value Reference Range Interpretation Comments Segs (test code = Segs) 87.9 45.0-75.0 [facility] HospitalNlabghoWEEYRNZGEZ8205-23-70 08:46:00 Test Item Value Reference Range Interpretation Comments Plt Morph (test code = Normal (06/28/18 3:46 Plt Morph) AM) [facility] HospitalCfssowkQXFQBQRIIH3917-68-97 08:46:00 Test Item Value Reference Range Interpretation Comments RBC Morph (test code = Normal (06/28/18 3:46 RBC Morph) AM) [facility] HospitalATHYROID OUFJUWU7067-07-05 08:46:00 Test Item Value Reference Range Interpretation Comments Ca Ion WB (test code = Ca Ion WB) 1.15 1.05-1.25 [facility] CenterPARATHYROID ROOWBNM4161-93-46 08:46:00 Test Item Value Reference Range Interpretation Comments Ca Norm WB (test code = Ca Norm WB) 1.13 1.05-1.25 [facility] [employer] BANK GFUSYRH5473-29-56 08:46:00 Test Item Value Reference Range Interpretation Comments Antibody Scrn (test Negative (06/28/18 3:46 code = Antibody Scrn) AM) [facility] [employer] VBTHTEI3230-59-79 08:46:00 Test Item Value Reference Range Interpretation Comments ABO/Rh (test code = ABO/Rh) O POS [facility] [employer] [id number] 08:46:00 Test Item Value Reference Range Interpretation Comments Magnesium Lvl (test code = Magnesium 1.9 1.8-2.4 Lvl) [facility] [employer] [id number] 08:46:00 Test Item Value Reference Range Interpretation Comments Phosphorus (test code = Phosphorus) 1.9 2.5-4.5 [facility] UrdlyzcXDKVVACQSRLB0257-69-15 08:46:00 Test Item Value Reference Range Interpretation Comments AGAP (test code = AGAP) 13.0 10.0-20.0 [facility] HospitalQecbiflYOVCXQGRZHJU8047-13-36 08:46:00 Test Item Value Reference Range Interpretation Comments eGFR (test code = eGFR) 37 [facility] HospitalXwbusyxQBTXUWCBBEVB5136-82-21 08:46:00 Test Item Value Reference Range Interpretation Comments Calcium Lvl (test code = Calcium Lvl) 8.4 8.5-10.5 [facility] HospitalZpjmkxlDSTKPEJWMKST8894-87-98 08:46:00 Test Item Value Reference Range Interpretation Comments BUN (test code = BUN) 26 7-22 [facility] HospitalLirphpaIGOPBJIAADYN2843-22-21 08:46:00 Test Item Value Reference Range Interpretation Comments Glucose Lvl (test code = Glucose Lvl) 119 70-99 [facility] HospitalYtnipjmQZZCVZRBWZHH5387-34-72 08:46:00 Test Item Value Reference Range Interpretation Comments Potassium Lvl (test code = Potassium 4.0 3.5-5.1 Lvl) [facility]KhtamwoXONXTBOALMOX1886-12-35 08:46:00 Test Item Value Reference Range Interpretation Comments Sodium Lvl (test code = Sodium Lvl) 144 135-145 [facility] HospitalKxgrqitEHJYYCQYOOZC3054-18-19 08:46:00 Test Item Value Reference Range Interpretation Comments Creatinine Lvl (test code = Creatinine 1.76 0.50-1.40 Lvl) [facility] HospitalXthtzdhWSEELHMWAWIV2421-82-30 08:46:00 Test Item Value Reference Range Interpretation Comments Chloride Lvl (test code = Chloride Lvl) 114 95-109 [facility] HospitalNjblqcrISGVXAGIYRKW4250-30-20 08:46:00 Test Item Value Reference Range Interpretation Comments CO2 (test code = CO2) -32 [facility] HospitalGqxelekLRIYXYDLUA4260-28-61 08:46:00 Test Item Value Reference Range Interpretation Comments INR (test code = INR) 1.07 1 0.85-1.17 [facility] HospitalLeojstsVKDCWTPMQU8500-52-39 08:46:00 Test Item Value Reference Range Interpretation Comments PT (test code = PT) 13.7 s 12.0-14.7 [facility] HospitalManzxatILEAMWTZUT5477-26-25 08:46:00 Test Item Value Reference Range Interpretation Comments PTT (test code = PTT) 27.4 s 22.9-35.8 [facility] HospitalUpukzisSUBVNZCGUJ4436-13-04 08:46:00 Test Item Value Reference Range Interpretation Comments TEG Interp (test Thrombelastograph results code = TEG show shortened value of R. Interp) This finding is suggestive of enzymatic hypercoagulation. CPT:19060 [facility] HospitalBovhjssEJRNYGADGL4007-97-05 08:46:00 Test Item Value Reference Range Interpretation Comments Coag Index (test code 3.2 1 See_Comment [Auto mated message] The = Coag Index) system which g enerated this result transmit emory reference range : <=3.0. The reference range was not used to interpr et this result as dori l/abnormal. [facility] HospitalWcvyhrdDBJIXPXEYM2566-01-71 08:46:00 Test Item Value Reference Range Interpretation Comments TEG Data (test code = See Note (06/28/18 3:46 TEG Data) AM) [facility] HospitalVvzwzbvBSUTHJUQHX1450-64-05 08:46:00 Test Item Value Reference Range Interpretation Comments G-value (test code = G-value) 9.8 4.5-11.0 [facility] HospitalBygcgfjXXNHYTXGAL0888-17-85 08:46:00 Test Item Value Reference Range Interpretation Comments Ly30 (test code = 0.0 See_Comment [Automate d message] The Ly30) system which ge nerated this result transmit emory reference range : <=7.5. The reference range was not used to interpr et this result as dori l/abnormal. [facility] HospitalRmfhxzsQAIRLSKPCP2787-26-73 08:46:00 Test Item Value Reference Range Interpretation Comments Max Amp (test code = Max Amp) 66.3 mm 50.0-70.0 [facility] HospitalNfrbpifFLNRZSBCOE2030-26-09 08:46:00 Test Item Value Reference Range Interpretation Comments K-time (test code = K-time) 1.7 min 1.0-3.0 [facility] HospitalEjxxjxhIOIDCBJJTM3527-53-68 08:46:00 Test Item Value Reference Range Interpretation Comments Angle (test code = Angle) 68.4 degrees 53.0-72.0 [facility] HospitalRliemieHPXDWPKPWP5018-27-23 08:46:00 Test Item Value Reference Range Interpretation Comments R-time (test code = R-time) 2.6 min 5.0-10.0 [facility] HospitalOnnryhsTFBIQPCOZV8196-30-44 08:46:00 Test Item Value Reference Range Interpretation Comments WBC (test code = WBC) 8.2 3.7-10.4 [facility] HospitalRlunfltUJISCENJZE2764-22-22 08:46:00 Test Item Value Reference Range Interpretation Comments MCHC (test code = MCHC) 33.7 32.0-36.0 [facility] HospitalVmtazdcLWXWZWPSVY6938-07-19 08:46:00 Test Item Value Reference Range Interpretation Comments MCH (test code = MCH) 30.3 pg 27.0-31.0 [facility] HospitalAvbgspdUYBQOPILIV3116-00-42 08:46:00 Test Item Value Reference Range Interpretation Comments MCV (test code = MCV) 90.1 80.0-94.0 [facility] HospitalHndqspdGXPHZYINXY6307-11-16 08:46:00 Test Item Value Reference Range Interpretation Comments Hgb (test code = Hgb) 12.7 14.0-18.0 [facility] HospitalDxgirrxIGXAQTHSFY4747-19-19 08:46:00 Test Item Value Reference Range Interpretation Comments RBC (test code = RBC) 4.18 4.70-6.10 [facility] HospitalJvduhpcLVNIVAXCIR4350-32-51 08:46:00 Test Item Value Reference Range Interpretation Comments Hct (test code = Hct) 37.7 42.0-54.0 [place] 807209-03-21 08:46:00 Test Item Value Reference Range Interpretation Comments RDW (test code = RDW) 16.1 11.5-14.5 [place] 807209-03-21 08:46:00 Test Item Value Reference Range Interpretation Comments MPV (test code = MPV) 8.6 7.4-10.4 [place] 19706-03-21 08:46:00 Test Item Value Reference Range Interpretation Comments Platelet (test code = Platelet) 203 133-450 [facility] HospitalBxsucqdNZDWEKNVVR4520-28-22 08:46:00 Test Item Value Reference Range Interpretation Comments Lymphocytes # (test code = Lymphocytes 0.9 1.0-5.5 #) [facility] HospitalGfhsoovWDZREAZAMX5889-74-40 08:46:00 Test Item Value Reference Range Interpretation Comments Monocytes # (test code 0.1 See_Comment [Aut omated message] The = Monocytes #) system which generated this result tra nsmitted reference range : <=0.8. The reference r efren was not used to int erpret this result as normal/abnormal . [facility] HospitalRkowofiNQQSOWDMDW6865-03-85 08:46:00 Test Item Value Reference Range Interpretation Comments Basophils (test code = 0.6 See_Comment [Aut omated message] The Basophils) system which ge nerated this result tra nsmitted reference range : <=1.0. The reference r efren was not used to int erpret this result as normal/abnormal . [facility] HospitalBwnkyuyCYDVVKCWSU5925-70-51 08:46:00 Test Item Value Reference Range Interpretation Comments Neutrophils # (test code = Neutrophils 7.2 1.5-8.1 #) [facility] HospitalKnomssfOGLQKCHAKR4298-96-96 08:46:00 Test Item Value Reference Range Interpretation Comments Eosinophils (test code = 0.1 See_Comment [A utomated message] The Eosinophils) system which ge nerated this result tra nsmitted reference range : <=4.0. The reference r efren was not used to int erpret this result as normal/abnormal . [facility] HospitalBzpnyxgTDNRGNSLII7262-71-94 08:46:00 Test Item Value Reference Range Interpretation Comments Monocytes (test code = Monocytes) 0.9 2.0-12.0 [facility] CenterBfuwmjgGKKUXKKDCY3599-67-25 08:46:00 Test Item Value Reference Range Interpretation Comments Lymphocytes (test code = Lymphocytes) 10.5 20.0-40.0 [facility] CenterFzmbsqkPHANYTTTXR1044-21-38 08:46:00 Test Item Value Reference Range Interpretation Comments Segs (test code = Segs) 87.9 45.0-75.0 [facility] HospitalHelybsvMFVHYYUZDJ2008-23-02 08:46:00 Test Item Value Reference Range Interpretation Comments Plt Morph (test code = Normal (06/28/18 3:46 Plt Morph) AM) [facility] CenterGrtpmsgTMNJEEPKUB8770-47-80 08:46:00 Test Item Value Reference Range Interpretation Comments RBC Morph (test code = Normal (06/28/18 3:46 RBC Morph) AM) [facility] [employer]aleemATHYRO[employer] WJLJRSQ3003-99-50 08:46:00 Test Item Value Reference Range Interpretation Comments Ca Ion WB (test code = Ca Ion WB) 1.15 1.05-1.25 [facility] [employer] labsROID XMNIBFF2628-32-69 08:46:00 Test Item Value Reference Range Interpretation Comments Ca Norm WB (test code = Ca Norm WB) 1.13 1.05-1.25 [facility] [employer] QJFZLHW9914-53-67 08:46:00 Test Item Value Reference Range Interpretation Comments Antibody Scrn (test Negative (06/28/18 3:46 code = Antibody Scrn) AM) [facility] [employer] ZKXMJJP5789-42-48 08:46:00 Test Item Value Reference Range Interpretation Comments ABO/Rh (test code = ABO/Rh) O POS [facility] [employer] [id number] 08:46:00 Test Item Value Reference Range Interpretation Comments Magnesium Lvl (test code = Magnesium 1.9 1.8-2.4 Lvl) [facility] [employer] [id number] 08:46:00 Test Item Value Reference Range Interpretation Comments Phosphorus (test code = Phosphorus) 1.9 2.5-4.5 [facility] HospitalOfyhkfgOTMQSZUFJROZ3238-04-17 08:46:00 Test Item Value Reference Range Interpretation Comments AGAP (test code = AGAP) 13.0 10.0-20.0 [facility] HospitalZelufsaKJOJWXEWSKVX9999-47-93 08:46:00 Test Item Value Reference Range Interpretation Comments eGFR (test code = eGFR) 37 [facility] HospitalAsftkwyZCYSSVLRTHNL8793-32-38 08:46:00 Test Item Value Reference Range Interpretation Comments Calcium Lvl (test code = Calcium Lvl) 8.4 8.5-10.5 [facility] HospitalCvmtnrjKMBBPSQSBVBB4675-32-04 08:46:00 Test Item Value Reference Range Interpretation Comments BUN (test code = BUN) 26 7-22 [facility] HospitalPvnxmccVKROLTIOMLTX9741-81-35 08:46:00 Test Item Value Reference Range Interpretation Comments Glucose Lvl (test code = Glucose Lvl) 119 70-99 [facility] HospitalZecmpavTLJZMVNJHBIN5242-00-05 08:46:00 Test Item Value Reference Range Interpretation Comments Potassium Lvl (test code = Potassium 4.0 3.5-5.1 Lvl) [facility] HospitalSzflfnbLKRHFSVXOBAL4977-49-43 08:46:00 Test Item Value Reference Range Interpretation Comments Sodium Lvl (test code = Sodium Lvl) 144 135-145 [facility] HospitalPgzxpfrWFHCNCUHKYME5409-11-62 08:46:00 Test Item Value Reference Range Interpretation Comments Creatinine Lvl (test code = Creatinine 1.76 0.50-1.40 Lvl) [facility] HospitalUhieivwNNTPUHODIIAY7788-81-48 08:46:00 Test Item Value Reference Range Interpretation Comments Chloride Lvl (test code = Chloride Lvl) 114 95-109 [facility] HospitalWhnyyalYJGBPUYYQSAQ4851-44-72 08:46:00 Test Item Value Reference Range Interpretation Comments CO2 (test code = CO2) 21 24-32 [facility] HospitalGlhrmejRTHEXWJUDH9742-53-98 08:46:00 Test Item Value Reference Range Interpretation Comments INR (test code = INR) 1.07 1 0.85-1.17 [facility] HospitalThrpvkyVHEWGODYUU5335-90-51 08:46:00 Test Item Value Reference Range Interpretation Comments PT (test code = PT) 13.7 s 12.0-14.7 [facility] HospitalNzjuxawQEDRWTHCYY4293-13-84 08:46:00 Test Item Value Reference Range Interpretation Comments PTT (test code = PTT) 27.4 s 22.9-35.8 [facility] HospitalUgesydnYXJRFJFQGI6940-32-45 08:46:00 Test Item Value Reference Range Interpretation Comments TEG Interp (test Thrombelastograph results code = TEG show shortened value of R. Interp) This finding is suggestive of enzymatic hypercoagulation. CPT:35974 [facility] HospitalOfldxcqCDLXDIDFHF7416-48-21 08:46:00 Test Item Value Reference Range Interpretation Comments Coag Index (test code 3.2 1 See_Comment [Auto mated message] The = Coag Index) system which g enerated this result transmit emory reference range : <=3.0. The reference range was not used to interpr et this result as dori l/abnormal. [facility] HospitalJawctxdJYLURGCSWZ8465-67-80 08:46:00 Test Item Value Reference Range Interpretation Comments TEG Data (test code = See Note (06/28/18 3:46 TEG Data) AM) [facility] HospitalZrmzurgFTBSNGEKMI3369-25-01 08:46:00 Test Item Value Reference Range Interpretation Comments G-value (test code = G-value) 9.8 4.5-11.0 [facility] HospitalMjpbjzpLSJPTLTFZZ3366-21-38 08:46:00 Test Item Value Reference Range Interpretation Comments Ly30 (test code = 0.0 See_Comment [Automate d message] The Ly30) system which ge nerated this result transmit emory reference range : <=7.5. The reference range was not used to interpr et this result as dori l/abnormal. [facility] HospitalVccyzqwNYGXXIUSJE6079-55-82 08:46:00 Test Item Value Reference Range Interpretation Comments Max Amp (test code = Max Amp) 66.3 mm 50.0-70.0 [facility] HospitalIfzoqujUIOXEBTMJY5737-03-36 08:46:00 Test Item Value Reference Range Interpretation Comments K-time (test code = K-time) 1.7 min 1.0-3.0 [facility] HospitalKckuqouJFPUCELOHJ5258-94-75 08:46:00 Test Item Value Reference Range Interpretation Comments Angle (test code = Angle) 68.4 degrees 53.0-72.0 [facility] HospitalXjkreprIIJIUZZCJC3365-51-20 08:46:00 Test Item Value Reference Range Interpretation Comments R-time (test code = R-time) 2.6 min 5.0-10.0 [facility] HospitalAuypatoHVUACVVHID5637-50-26 08:46:00 Test Item Value Reference Range Interpretation Comments WBC (test code = WBC) 8.2 3.7-10.4 [facility] HospitalFbuqxjhPJKKLBCRYS0358-90-45 08:46:00 Test Item Value Reference Range Interpretation Comments MCHC (test code = MCHC) 33.7 32.0-36.0 [facility] HospitalImaosjeSQBMIWJHQD0740-22-55 08:46:00 Test Item Value Reference Range Interpretation Comments MCH (test code = MCH) 30.3 pg 27.0-31.0 [facility] HospitalIrafuztROGROGCJTK1862-25-83 08:46:00 Test Item Value Reference Range Interpretation Comments MCV (test code = MCV) 90.1 80.0-94.0 [facility] HospitalNcuuuvuFHRSKUDIZL4522-84-94 08:46:00 Test Item Value Reference Range Interpretation Comments Hgb (test code = Hgb) 12.7 14.0-18.0 [facility] HospitalXuopjokFHQRVGHIVG7231-99-58 08:46:00 Test Item Value Reference Range Interpretation Comments RBC (test code = RBC) 4.18 4.70-6.10 [facility] HospitalFlsmwnfASABOLBCWG4304-54-06 08:46:00 Test Item Value Reference Range Interpretation Comments Hct (test code = Hct) 37.7 42.0-54.0 [facility] HospitalEriijhqSNPHCIBBMI1189-09-36 08:46:00 Test Item Value Reference Range Interpretation Comments RDW (test code = RDW) 16.1 11.5-14.5 [facility] HospitalTnywflcHBXWSDNRUO0652-63-29 08:46:00 Test Item Value Reference Range Interpretation Comments MPV (test code = MPV) 8.6 7.4-10.4 [facility] HospitalCnvhcyuKCOKXBTUIR4885-47-93 08:46:00 Test Item Value Reference Range Interpretation Comments Platelet (test code = Platelet) 203 133-450 [facility] HospitalYodopwlWOCZDKOBNK3533-85-33 08:46:00 Test Item Value Reference Range Interpretation Comments Lymphocytes # (test code = Lymphocytes 0.9 1.0-5.5 #) [facility] HospitalVbtdxsgCQCFPPGUJU8343-89-71 08:46:00 Test Item Value Reference Range Interpretation Comments Monocytes # (test code 0.1 See_Comment [Aut omated message] The = Monocytes #) system which generated this result tra nsmitted reference range : <=0.8. The reference r efren was not used to int erpret this result as normal/abnormal . [facility] HospitalPazpotbIUEACOYCYG3608-92-55 08:46:00 Test Item Value Reference Range Interpretation Comments Basophils (test code = 0.6 See_Comment [Aut omated message] The Basophils) system which ge nerated this result tra nsmitted reference range : <=1.0. The reference r efren was not used to int erpret this result as normal/abnormal . [facility] HospitalHnheefuEEPGRVNAOJ2518-21-45 08:46:00 Test Item Value Reference Range Interpretation Comments Neutrophils # (test code = Neutrophils 7.2 1.5-8.1 #) [facility] HospitalOsaezwzVPPLWGAEXH1979-37-76 08:46:00 Test Item Value Reference Range Interpretation Comments Eosinophils (test code = 0.1 See_Comment [A utomated message] The Eosinophils) system which ge nerated this result tra nsmitted reference range : <=4.0. The reference r efren was not used to int erpret this result as normal/abnormal . [facility] HospitalNlhjxwxRIYKOWRVKT2852-36-76 08:46:00 Test Item Value Reference Range Interpretation Comments Monocytes (test code = Monocytes) 0.9 2.0-12.0 [facility] HospitalFforbncPDYWDINPGU3136-19-02 08:46:00 Test Item Value Reference Range Interpretation Comments Lymphocytes (test code = Lymphocytes) 10.5 20.0-40.0 [facility] HospitalTwkeswrPRQDTNUHIB7547-50-50 08:46:00 Test Item Value Reference Range Interpretation Comments Segs (test code = Segs) 87.9 45.0-75.0 [facility] HospitalGkgeimdLXPYUMJLPH7914-33-78 08:46:00 Test Item Value Reference Range Interpretation Comments Plt Morph (test code = Normal (06/28/18 3:46 Plt Morph) AM) [facility] HospitalZwmmyvnODZKGBUURM7034-06-91 08:46:00 Test Item Value Reference Range Interpretation Comments RBC Morph (test code = Normal (06/28/18 3:46 RBC Morph) AM) [facility]2019-03-21 08:46:00 Test Item Value Reference Range Interpretation Comments Ca Ion WB (test code = Ca Ion WB) 1.15 1.05-1.25 [facility]2019-03-21 08:46:00 Test Item Value Reference Range Interpretation Comments Ca Norm WB (test code = Ca Norm WB) 1.13 1.05-1.[address] [facility] CQBGPKH6221-50-17 08:46:00 Test Item Value Reference Range Interpretation Comments Antibody Scrn (test Negative (06/28/18 3:46 code = Antibody Scrn) AM) [facility] ZGKJDAJ2407-04-01 08:46:00 Test Item Value Reference Range Interpretation Comments ABO/Rh (test code = ABO/Rh) [facility]LO[facility]89[facility] 08:46:00 Test Item Value Reference Range Interpretation Comments Magnesium Lvl (test code = Magnesium 1.9 1.8-2.4 Lvl) [facility] IXANC8025-62-89 08:46:00 Test Item Value Reference Range Interpretation Comments Phosphorus (test code = Phosphorus) 1.9 2.5-4.5 [facility]OqsioeuHAUSEOHRABMT8504-67-56 08:46:00 Test Item Value Reference Range Interpretation Comments AGAP (test code = AGAP) 13.0 10.0-20.0 [facility] HospitalEqlzfowGTBMKBTSHOLX6439-51-80 08:46:00 Test Item Value Reference Range Interpretation Comments eGFR (test code = eGFR) 37 [facility] HospitalRdfpcgqDKHSDMYAMBCY5515-08-17 08:46:00 Test Item Value Reference Range Interpretation Comments Calcium Lvl (test code = Calcium Lvl) 8.4 8.5-10.5 [facility] HospitalDjkclzwDMUNQKDSYHOX6785-18-17 08:46:00 Test Item Value Reference Range Interpretation Comments BUN (test code = BUN) 26 7-22 [facility] CenterRrsjrmnHDYYDSLUXOOV0779-84-26 08:46:00 Test Item Value Reference Range Interpretation Comments Glucose Lvl (test code = Glucose Lvl) 119 70-99 [facility] HospitalFgpigdaAHIJZTDKSVTE5390-68-58 08:46:00 Test Item Value Reference Range Interpretation Comments Potassium Lvl (test code = Potassium 4.0 3.5-5.1 Lvl) [facility] HospitalBmqwrgsCIFXLTLBDDST6446-74-11 08:46:00 Test Item Value Reference Range Interpretation Comments Sodium Lvl (test code = Sodium Lvl) 144 135-145 [facility] CenterOjjctlbWGDXXRKLODLU6165-33-97 08:46:00 Test Item Value Reference Range Interpretation Comments Creatinine Lvl (test code = Creatinine 1.76 0.50-1.40 Lvl) [facility] HospitalIegxvkzVABMDZZSKENY1052-02-09 08:46:00 Test Item Value Reference Range Interpretation Comments Chloride Lvl (test code = Chloride Lvl) 114 95-109 [facility] HospitalHblwlnhJYUSXZNXMWFS6197-22-79 08:46:00 Test Item Value Reference Range Interpretation Comments CO2 (test code = CO2) 21 24-32 [facility] HospitalHphzcuvHEDZMAYTTK0004-06-73 08:46:00 Test Item Value Reference Range Interpretation Comments INR (test code = INR) 1.07 1 0.85-1.17 [facility] HospitalFexoykkQWWGSRHCXM9737-50-95 08:46:00 Test Item Value Reference Range Interpretation Comments PT (test code = PT) 13.7 s 12.0-14.7 [facility] HospitalQgiwjngPWKOCCDAPR9464-92-95 08:46:00 Test Item Value Reference Range Interpretation Comments PTT (test code = PTT) 27.4 s 22.9-35.8 [facility] HospitalQzkummrUUYAQSZOLM1063-46-48 08:46:00 Test Item Value Reference Range Interpretation Comments TEG Interp (test Thrombelastograph results code = TEG show shortened value of R. Interp) This finding is suggestive of enzymatic hypercoagulation. CPT:18262 [facility] HospitalThryfrcEBPIZUWIDX0253-42-97 08:46:00 Test Item Value Reference Range Interpretation Comments Coag Index (test code 3.2 1 See_Comment [Auto mated message] The = Coag Index) system which g enerated this result transmit emory reference range : <=3.0. The reference range was not used to interpr et this result as dori l/abnormal. [facility] HospitalZknebevCQVTOWPTAN6316-06-80 08:46:00 Test Item Value Reference Range Interpretation Comments TEG Data (test code = See Note (06/28/18 3:46 TEG Data) AM) [facility] HospitalJrjhgigDKEBMNJXKQ5584-47-72 08:46:00 Test Item Value Reference Range Interpretation Comments G-value (test code = G-value) 9.8 4.5-11.0 [facility] HospitalKvdaxkhFDADSZJAZM2645-97-75 08:46:00 Test Item Value Reference Range Interpretation Comments Ly30 (test code = 0.0 See_Comment [Automate d message] The Ly30) system which ge nerated this result transmit emory reference range : <=7.5. The reference range was not used to interpr et this result as dori l/abnormal. [facility] HospitalTwcdennPKLDKPBMLE6313-82-89 08:46:00 Test Item Value Reference Range Interpretation Comments Max Amp (test code = Max Amp) 66.3 mm 50.0-70.0 [facility] HospitalIdtfwjmSSBKGDRCBQ7098-72-19 08:46:00 Test Item Value Reference Range Interpretation Comments K-time (test code = K-time) 1.7 min 1.0-3.0 [facility] HospitalRrfrlwrTHJUMBARRX8483-82-23 08:46:00 Test Item Value Reference Range Interpretation Comments Angle (test code = Angle) 68.4 degrees 53.0-72.0 [facility] HospitalPvnuxplVLCCFLUFMI3535-24-45 08:46:00 Test Item Value Reference Range Interpretation Comments R-time (test code = R-time) 2.6 min 5.0-10.0 [facility] HospitalJvbhqcwQGLYMFFQFA7333-18-45 08:46:00 Test Item Value Reference Range Interpretation Comments WBC (test code = WBC) 8.2 3.7-10.4 [facility] HospitalQhgxkwkTTDQARYGZO7948-82-00 08:46:00 Test Item Value Reference Range Interpretation Comments MCHC (test code = MCHC) 33.7 32.0-36.0 [facility] HospitalYphkyvcCNXQAMXRCB0576-17-23 08:46:00 Test Item Value Reference Range Interpretation Comments MCH (test code = MCH) 30.3 pg 27.0-31.0 [facility] HospitalFutqsusPKALKHWFUB1335-18-93 08:46:00 Test Item Value Reference Range Interpretation Comments MCV (test code = MCV) 90.1 80.0-94.0 [facility] HospitalJbfrlbmBNJXBPVTAQ9908-03-91 08:46:00 Test Item Value Reference Range Interpretation Comments Hgb (test code = Hgb) 12.7 14.0-18.0 [facility] HospitalHzxvjcvQBNRQGIXXM0542-66-51 08:46:00 Test Item Value Reference Range Interpretation Comments RBC (test code = RBC) 4.18 4.70-6.10 [facility] HospitalFxfkdicNZNYTFIVWS7845-78-27 08:46:00 Test Item Value Reference Range Interpretation Comments Hct (test code = Hct) 37.7 42.0-54.0 [place] 807209-03-21 08:46:00 Test Item Value Reference Range Interpretation Comments RDW (test code = RDW) 16.1 11.5-14.5 [facility] HospitalCllxnhpZQBKPYIROE1170-85-94 08:46:00 Test Item Value Reference Range Interpretation Comments MPV (test code = MPV) 8.6 7.4-10.4 [facility] HospitalHkdzmrpEHFCRNMMQD9891-35-14 08:46:00 Test Item Value Reference Range Interpretation Comments Platelet (test code = Platelet) 203 133-450 [facility] HospitalWyzdgmzPPTDZGANXV7071-19-42 08:46:00 Test Item Value Reference Range Interpretation Comments Lymphocytes # (test code = Lymphocytes 0.9 1.0-5.5 #) [facility] HospitalQjguixhTXNYNUFSEQ0883-69-60 08:46:00 Test Item Value Reference Range Interpretation Comments Monocytes # (test code 0.1 See_Comment [Aut omated message] The = Monocytes #) system which generated this result tra nsmitted reference range : <=0.8. The reference r efren was not used to int erpret this result as normal/abnormal . [facility] HospitalYgbseotOOIBUVDRVM5244-52-12 08:46:00 Test Item Value Reference Range Interpretation Comments Basophils (test code = 0.6 See_Comment [Aut omated message] The Basophils) system which ge nerated this result tra nsmitted reference range : <=1.0. The reference r efren was not used to int erpret this result as normal/abnormal . [facility] HospitalStezgsrEPWZQGDXYO4131-31-04 08:46:00 Test Item Value Reference Range Interpretation Comments Neutrophils # (test code = Neutrophils 7.2 1.5-8.1 #) [facility] HospitalEgdkfwvZGCXLLONSW1879-93-41 08:46:00 Test Item Value Reference Range Interpretation Comments Eosinophils (test code = 0.1 See_Comment [A utomated message] The Eosinophils) system which ge nerated this result tra nsmitted reference range : <=4.0. The reference r efren was not used to int erpret this result as normal/abnormal . [facility] HospitalQaquhwtHETMOBJTGX1289-28-22 08:46:00 Test Item Value Reference Range Interpretation Comments Monocytes (test code = Monocytes) 0.9 2.0-12.0 [facility] HospitalQjghnyhHJCQQQGJQX9651-11-77 08:46:00 Test Item Value Reference Range Interpretation Comments Lymphocytes (test code = Lymphocytes) 10.5 20.0-40.0 [facility] EztzlsmLQYFVDWUNA5398-35-28 08:46:00 Test Item Value Reference Range Interpretation Comments Segs (test code = Segs) 87.9 45.0-75.0 [facility] LfgrocpFYSOBXPELO8542-08-09 08:46:00 Test Item Value Reference Range Interpretation Comments Plt Morph (test code = Normal (06/28/18 3:46 Plt Morph) AM) [facility] TdaabzmYDNBQWOOKC6643-41-13 08:46:00 Test Item Value Reference Range Interpretation Comments RBC Morph (test code = Normal (06/28/18 3:46 RBC Morph) AM) [facility] MeriTaleemATHYROID IRUYTCW3270-84-03 08:46:00 Test Item Value Reference Range Interpretation Comments Ca Ion WB (test code = Ca Ion WB) 1.15 1.05-1.25 [facility] AREVS VHBFHVH6306-10-23 08:46:00 Test Item Value Reference Range Interpretation Comments Ca Norm WB (test code = Ca Norm WB) 1.13 1.05-1.25 [employer] GCXWXBS3208-06-22 08:46:00 Test Item Value Reference Range Interpretation Comments Antibody Scrn (test Negative (06/28/18 3:46 code = Antibody Scrn) AM) [facility] [employer] WDNXFGF1902-81-24 08:46:00 Test Item Value Reference Range Interpretation Comments ABO/Rh (test code = ABO/Rh) O POS [facility] [employer] TUDWQ2431-16-00 08:46:00 Test Item Value Reference Range Interpretation Comments Magnesium Lvl (test code = Magnesium 1.9 1.8-2.4 Lvl) [facility] [employer] UMSWQ1066-81-50 08:46:00 Test Item Value Reference Range Interpretation Comments Phosphorus (test code = Phosphorus) 1.9 2.5-4.5 [facility] GiqnctrQXLBSYDMEWNJ5234-00-28 08:46:00 Test Item Value Reference Range Interpretation Comments AGAP (test code = AGAP) 13.0 10.0-20.0 [facility] NvhvxfsNTAEWOSUFCIK0590-55-48 08:46:00 Test Item Value Reference Range Interpretation Comments eGFR (test code = eGFR) 37 [facility] SbumxxnNWFOMHIVASPX5983-63-49 08:46:00 Test Item Value Reference Range Interpretation Comments Calcium Lvl (test code = Calcium Lvl) 8.4 8.5-10.5 [facility]TwdbqmiWPVVUTGLAGMY9345-86-24 08:46:00 Test Item Value Reference Range Interpretation Comments BUN (test code = BUN) 26 7-22 [facility] HospitalPthtnfuNIQANWJZFCGI8560-58-13 08:46:00 Test Item Value Reference Range Interpretation Comments Glucose Lvl (test code = Glucose Lvl) 119 70-99 [facility] HospitalSgwuejzSIOYPYDMXDVO5967-71-85 08:46:00 Test Item Value Reference Range Interpretation Comments Potassium Lvl (test code = Potassium 4.0 3.5-5.1 Lvl) [facility] HospitalZszyjisJFEYHIJIWVWY8108-92-46 08:46:00 Test Item Value Reference Range Interpretation Comments Sodium Lvl (test code = Sodium Lvl) 144 135-145 [facility] HospitalUuiubtbBRCYSBDGQJWH9583-24-38 08:46:00 Test Item Value Reference Range Interpretation Comments Creatinine Lvl (test code = Creatinine 1.76 0.50-1.40 Lvl) [facility] HospitalWxlhilbSCHJXHRPWQBH2354-98-37 08:46:00 Test Item Value Reference Range Interpretation Comments Chloride Lvl (test code = Chloride Lvl) 114 95-109 [facility] HospitalRvekoohHULIJSAJQPVS6927-06-96 08:46:00 Test Item Value Reference Range Interpretation Comments CO2 (test code = CO2) 21 24-32 [facility] HospitalEvpahdgDWZSJZFQQY0907-11-10 08:46:00 Test Item Value Reference Range Interpretation Comments INR (test code = INR) 1.07 1 0.85-1.17 [facility] HospitalWwmutqpRJKXBYOEHG0750-30-29 08:46:00 Test Item Value Reference Range Interpretation Comments PT (test code = PT) 13.7 s 12.0-14.7 [facility] HospitalTksfjsvMNUSHSVTZS6871-72-09 08:46:00 Test Item Value Reference Range Interpretation Comments PTT (test code = PTT) 27.4 s 22.9-35.8 [facility] HospitalCcphqawACNBXSKFEK9736-57-76 08:46:00 Test Item Value Reference Range Interpretation Comments TEG Interp (test Thrombelastograph results code = TEG show shortened value of R. Interp) This finding is suggestive of enzymatic hypercoagulation. CPT:43348 [facility] HospitalLazsqtdQEIGEPZBGX1366-63-63 08:46:00 Test Item Value Reference Range Interpretation Comments Coag Index (test code 3.2 1 See_Comment [Auto mated message] The = Coag Index) system which g enerated this result transmit emory reference range : <=3.0. The reference range was not used to interpr et this result as dori l/abnormal. [facility] HospitalRbfjfqiYRIRBGELOH9538-94-98 08:46:00 Test Item Value Reference Range Interpretation Comments TEG Data (test code = See Note (06/28/18 3:46 TEG Data) AM) [facility] HospitalIedbgqmJHUOJLCITL8220-67-65 08:46:00 Test Item Value Reference Range Interpretation Comments G-value (test code = G-value) 9.8 4.5-11.0 [facility] HospitalBjbcjpxONLLSBHFRJ7649-81-07 08:46:00 Test Item Value Reference Range Interpretation Comments Ly30 (test code = 0.0 See_Comment [Automate d message] The Ly30) system which ge nerated this result transmit emory reference range : <=7.5. The reference range was not used to interpr et this result as dori l/abnormal. [facility] HospitalDrbvxgiOIFBYKFHMR1703-53-51 08:46:00 Test Item Value Reference Range Interpretation Comments Max Amp (test code = Max Amp) 66.3 mm 50.0-70.0 [facility] HospitalBggasyiPLIJQHZHKC6636-21-77 08:46:00 Test Item Value Reference Range Interpretation Comments K-time (test code = K-time) 1.7 min 1.0-3.0 [facility] HospitalBytiittIPCSFGZCGF6932-72-12 08:46:00 Test Item Value Reference Range Interpretation Comments Angle (test code = Angle) 68.4 degrees 53.0-72.0 [facility] HospitalYtzglhnECGCSZFXVH9880-09-77 08:46:00 Test Item Value Reference Range Interpretation Comments R-time (test code = R-time) 2.6 min 5.0-10.0 [facility] HospitalJtlatoeSLEFBQEADY0692-17-82 08:46:00 Test Item Value Reference Range Interpretation Comments WBC (test code = WBC) 8.2 3.7-10.4 [facility] HospitalKqicbhhJKOAWEPPDX9590-21-87 08:46:00 Test Item Value Reference Range Interpretation Comments MCHC (test code = MCHC) 33.7 32.0-36.0 [facility] HospitalCnrpeniMDAPPPALFA8873-98-81 08:46:00 Test Item Value Reference Range Interpretation Comments MCH (test code = MCH) 30.3 pg 27.0-31.0 [facility] HospitalMamzzbeJBEYEKGHID4910-36-01 08:46:00 Test Item Value Reference Range Interpretation Comments MCV (test code = MCV) 90.1 80.0-94.0 [facility] HospitalRwcfmmpSWEGRRIBTA2892-73-99 08:46:00 Test Item Value Reference Range Interpretation Comments Hgb (test code = Hgb) 12.7 14.0-18.0 [facility] HospitalJbhtkpmRJOGKTBEGL6260-24-14 08:46:00 Test Item Value Reference Range Interpretation Comments RBC (test code = RBC) 4.18 4.70-6.10 [facility] HospitalCliftmsWJMMVHZJPI5125-21-90 08:46:00 Test Item Value Reference Range Interpretation Comments Hct (test code = Hct) 37.7 42.0-54.0 [facility] HospitalCofyjybUHFJIKWRNW5922-75-83 08:46:00 Test Item Value Reference Range Interpretation Comments RDW (test code = RDW) 16.1 11.5-14.5 [facility] HospitalBwztfawTAQRMATPNP3301-85-93 08:46:00 Test Item Value Reference Range Interpretation Comments MPV (test code = MPV) 8.6 7.4-10.4 [facility] HospitalCcavzoeCLOQMKMGPF4881-51-19 08:46:00 Test Item Value Reference Range Interpretation Comments Platelet (test code = Platelet) 203 133-450 [facility] HospitalTjcnuctCDFNITBMLI4871-48-66 08:46:00 Test Item Value Reference Range Interpretation Comments Lymphocytes # (test code = Lymphocytes 0.9 1.0-5.5 #) [facility] HospitalEigjgvwVWPSIJOYDC7434-67-03 08:46:00 Test Item Value Reference Range Interpretation Comments Monocytes # (test code 0.1 See_Comment [Aut omated message] The = Monocytes #) system which generated this result tra nsmitted reference range : <=0.8. The reference r efren was not used to int erpret this result as normal/abnormal . [facility]QdufhbsHWKLDDUFDG2309-09-66 08:46:00 Test Item Value Reference Range Interpretation Comments Basophils (test code = 0.6 See_Comment [Aut omated message] The Basophils) system which ge nerated this result tra nsmitted reference range : <=1.0. The reference r efren was not used to int erpret this result as normal/abnormal . [facility] HospitalMqfjfkpKIHZBOLQHE0193-35-08 08:46:00 Test Item Value Reference Range Interpretation Comments Neutrophils # (test code = Neutrophils 7.2 1.5-8.1 #) [facility] HospitalJnvmnsnLAYEQHNULU7140-10-51 08:46:00 Test Item Value Reference Range Interpretation Comments Eosinophils (test code = 0.1 See_Comment [A utomated message] The Eosinophils) system which ge nerated this result tra nsmitted reference range : <=4.0. The reference r efren was not used to int erpret this result as normal/abnormal . [facility] HospitalUnfjipbBSDDTYIGLK7755-19-70 08:46:00 Test Item Value Reference Range Interpretation Comments Monocytes (test code = Monocytes) 0.9 2.0-12.0 [facility] HospitalRzrghkyQNRFPTKCSU6488-30-18 08:46:00 Test Item Value Reference Range Interpretation Comments Lymphocytes (test code = Lymphocytes) 10.5 20.0-40.0 [facility] HospitalArjmdqgJTEKOZXGFO0594-28-64 08:46:00 Test Item Value Reference Range Interpretation Comments Segs (test code = Segs) 87.9 45.0-75.0 [facility] HospitalCfwmlyaEEKTEIZKUY3231-57-21 08:46:00 Test Item Value Reference Range Interpretation Comments Plt Morph (test code = Normal (06/28/18 3:46 Plt Morph) AM) [facility] HospitalBbzlnzoGXLLLFBJFL7503-40-62 08:46:00 Test Item Value Reference Range Interpretation Comments RBC Morph (test code = Normal (06/28/18 3:46 RBC Morph) AM) [facility] HIQTUUG7215-73-75 08:46:00 Test Item Value Reference Range Interpretation Comments Ca Ion WB (test code = Ca Ion WB) 1.15 1.05-1.25 [facility]2019-03-21 08:46:00 Test Item Value Reference Range Interpretation Comments Ca Norm WB (test code = Ca Norm WB) 1.13 1.05-1.25 [facility] QPPIZLP8589-68-82 08:46:00 Test Item Value Reference Range Interpretation Comments Antibody Scrn (test Negative (06/28/18 3:46 code = Antibody Scrn) AM) [facility] BANK WVNCQYM6999-85-30 08:46:00 Test Item Value Reference Range Interpretation Comments ABO/Rh (test code = ABO/Rh) O POS [facility] CenterH[facility] [id number] 08:46:00 Test Item Value Reference Range Interpretation Comments Magnesium Lvl (test code = Magnesium 1.9 1.8-2.4 Lvl) [facility] [id number] 08:46:00 Test Item Value Reference Range Interpretation Comments Phosphorus (test code = Phosphorus) 1.9 2.5-4.5 [facility]DvigqvdCFSDPNGYMXMG3146-57-37 08:46:00 Test Item Value Reference Range Interpretation Comments AGAP (test code = AGAP) 13.0 10.0-20.0 [facility] HospitalNqipzfwAHZJHTYUZGAP5937-83-10 08:46:00 Test Item Value Reference Range Interpretation Comments eGFR (test code = eGFR) 37 [facility] HospitalEqndmrkGOZWIWYCTUTM9933-40-13 08:46:00 Test Item Value Reference Range Interpretation Comments Calcium Lvl (test code = Calcium Lvl) 8.4 8.5-10.5 [facility] HospitalBbzynolUWOMIRWLXDJK9941-81-42 08:46:00 Test Item Value Reference Range Interpretation Comments BUN (test code = BUN) 26 7-22 [facility] HospitalIxdkotoYUHPKRYWLUIX3695-45-69 08:46:00 Test Item Value Reference Range Interpretation Comments Glucose Lvl (test code = Glucose Lvl) 119 70-99 [facility] HospitalMcussoxBCHTTMALKHHK9222-93-93 08:46:00 Test Item Value Reference Range Interpretation Comments Potassium Lvl (test code = Potassium 4.0 3.5-5.1 Lvl) [facility] HospitalDsvkkjxESMVZCODQBNY7058-26-07 08:46:00 Test Item Value Reference Range Interpretation Comments Sodium Lvl (test code = Sodium Lvl) 144 135-145 [facility] HospitalDamdduzZOSVRSLJOHIP0962-38-26 08:46:00 Test Item Value Reference Range Interpretation Comments Creatinine Lvl (test code = Creatinine 1.76 0.50-1.40 Lvl) [facility] HospitalCbwjydsWNNBXUOYNFBP3038-48-76 08:46:00 Test Item Value Reference Range Interpretation Comments Chloride Lvl (test code = Chloride Lvl) 114 95-109 [facility] HospitalEychetyAEGAATEIDAEE0384-31-20 08:46:00 Test Item Value Reference Range Interpretation Comments CO2 (test code = CO2) 21 24-32 [facility] HospitalOsuqsbtYTGPDJRNLL9804-42-18 08:46:00 Test Item Value Reference Range Interpretation Comments INR (test code = INR) 1.07 1 0.85-1.17 [facility] HospitalHqalxreOBKRLKDLSY0642-48-94 08:46:00 Test Item Value Reference Range Interpretation Comments PT (test code = PT) 13.7 s 12.0-14.7 [facility] HospitalZhjcwwdIEBPOSPNTO8335-56-46 08:46:00 Test Item Value Reference Range Interpretation Comments PTT (test code = PTT) 27.4 s 22.9-35.8 [facility] HospitalXupwuvkTDKMMUCLDS7425-55-67 08:46:00 Test Item Value Reference Range Interpretation Comments TEG Interp (test Thrombelastograph results code = TEG show shortened value of R. Interp) This finding is suggestive of enzymatic hypercoagulation. CPT:09181 [facility] HospitalZkqxpdsTAIBCZMQWY1707-81-70 08:46:00 Test Item Value Reference Range Interpretation Comments Coag Index (test code 3.2 1 See_Comment [Auto mated message] The = Coag Index) system which g enerated this result transmit emory reference range : <=3.0. The reference range was not used to interpr et this result as dori l/abnormal. [facility] HospitalZvhogxlAZGPQLUHZJ5559-44-31 08:46:00 Test Item Value Reference Range Interpretation Comments TEG Data (test code = See Note (06/28/18 3:46 TEG Data) AM) [facility] HospitalEavewvwDIOOBNVGYY1885-67-81 08:46:00 Test Item Value Reference Range Interpretation Comments G-value (test code = G-value) 9.8 4.5-11.0 [facility] HospitalCligipcTXPPKILMBW0577-64-57 08:46:00 Test Item Value Reference Range Interpretation Comments Ly30 (test code = 0.0 See_Comment [Automate d message] The Ly30) system which ge nerated this result transmit emory reference range : <=7.5. The reference range was not used to interpr et this result as dori l/abnormal. [facility] HospitalUtzfxreMCXTRHLXIU7425-46-22 08:46:00 Test Item Value Reference Range Interpretation Comments Max Amp (test code = Max Amp) 66.3 mm 50.0-70.0 [facility] HospitalGnivoaqBYWARCMWHE8880-66-64 08:46:00 Test Item Value Reference Range Interpretation Comments K-time (test code = K-time) 1.7 min 1.0-3.0 [facility] HospitalBhrqkgzVMKRVROIPO9052-96-75 08:46:00 Test Item Value Reference Range Interpretation Comments Angle (test code = Angle) 68.4 degrees 53.0-72.0 [facility] HospitalAqtmohbNXUWMRNXXH0419-26-06 08:46:00 Test Item Value Reference Range Interpretation Comments R-time (test code = R-time) 2.6 min 5.0-10.0 [facility] HospitalTtaqkzbBWRAAFSJHV2842-35-49 08:46:00 Test Item Value Reference Range Interpretation Comments WBC (test code = WBC) 8.2 3.7-10.4 [facility] HospitalJsfmrytVYSHQIXYRS0484-98-11 08:46:00 Test Item Value Reference Range Interpretation Comments MCHC (test code = MCHC) 33.7 32.0-36.0 [facility] HospitalBpcisqwAFHDYXQDPN6173-08-22 08:46:00 Test Item Value Reference Range Interpretation Comments MCH (test code = MCH) 30.3 pg 27.0-31.0 [facility] HospitalKkjlqhnUQWMQUQPTV4402-90-03 08:46:00 Test Item Value Reference Range Interpretation Comments MCV (test code = MCV) 90.1 80.0-94.0 [facility] HospitalAbxlimgETYSGBUUWT7656-21-22 08:46:00 Test Item Value Reference Range Interpretation Comments Hgb (test code = Hgb) 12.7 14.0-18.0 [facility] HospitalSkyaidpJGCYDUXTBG6924-36-34 08:46:00 Test Item Value Reference Range Interpretation Comments RBC (test code = RBC) 4.18 4.70-6.10 [facility] HospitalWzgkwouXXGRMUPHQX1349-82-07 08:46:00 Test Item Value Reference Range Interpretation Comments Hct (test code = Hct) 37.7 42.0-54.0 [facility] HospitalBbwhzzkDMFBGTNFFL3201-33-30 08:46:00 Test Item Value Reference Range Interpretation Comments RDW (test code = RDW) 16.1 11.5-14.5 [facility] HospitalQrvxctjXQWJOVLCUH6894-78-75 08:46:00 Test Item Value Reference Range Interpretation Comments MPV (test code = MPV) 8.6 7.4-10.4 [facility] HospitalSjmepcwQSJNHORMUQ6721-52-63 08:46:00 Test Item Value Reference Range Interpretation Comments Platelet (test code = Platelet) 203 133-450 [facility] HospitalNqlivogXBLCCSBTPP2440-86-24 08:46:00 Test Item Value Reference Range Interpretation Comments Lymphocytes # (test code = Lymphocytes 0.9 1.0-5.5 #) [facility] HospitalQlofyjyUCBUYDYDJF9097-75-36 08:46:00 Test Item Value Reference Range Interpretation Comments Monocytes # (test code 0.1 See_Comment [Aut omated message] The = Monocytes #) system which generated this result tra nsmitted reference range : <=0.8. The reference r efren was not used to int erpret this result as normal/abnormal . [facility] HospitalGbdguzrVNIONPCIAX8125-41-57 08:46:00 Test Item Value Reference Range Interpretation Comments Basophils (test code = 0.6 See_Comment [Aut omated message] The Basophils) system which ge nerated this result tra nsmitted reference range : <=1.0. The reference r efren was not used to int erpret this result as normal/abnormal . [facility] HospitalBclizriBJNKCGBTBF4404-59-86 08:46:00 Test Item Value Reference Range Interpretation Comments Neutrophils # (test code = Neutrophils 7.2 1.5-8.1 #) [facility] HospitalVflpdxtURRXXSQCYE9612-17-02 08:46:00 Test Item Value Reference Range Interpretation Comments Eosinophils (test code = 0.1 See_Comment [A utomated message] The Eosinophils) system which ge nerated this result tra nsmitted reference range : <=4.0. The reference r efren was not used to int erpret this result as normal/abnormal . [facility] HospitalMsgzimkEUJBKUDCFR9008-36-50 08:46:00 Test Item Value Reference Range Interpretation Comments Monocytes (test code = Monocytes) 0.9 2.0-12.0 [facility] HospitalIqoildeUAXERDQMVT7616-57-51 08:46:00 Test Item Value Reference Range Interpretation Comments Lymphocytes (test code = Lymphocytes) 10.5 20.0-40.0 [facility] HospitalTyzxqvyCRHAJWBSJR6634-42-61 08:46:00 Test Item Value Reference Range Interpretation Comments Segs (test code = Segs) 87.9 45.0-75.0 [facility] HospitalZdctbteFWQBRJMNMS1475-55-16 08:46:00 Test Item Value Reference Range Interpretation Comments Plt Morph (test code = Normal (06/28/18 3:46 Plt Morph) AM) [facility] GladwinWwjngcjDVCDSEPRLB1541-77-59 08:46:00 Test Item Value Reference Range Interpretation Comments RBC Morph (test code = Normal (06/28/18 3:46 RBC Morph) AM) [facility]woodRO[facility] IUHMGIG3344-31-02 08:46:00 Test Item Value Reference Range Interpretation Comments Ca Ion WB (test code = Ca Ion WB) 1.15 1.05-1.25 [facility] HospitalEcometricaS[facility] NHPXWMB2263-87-12 08:46:00 Test Item Value Reference Range Interpretation Comments Ca Norm WB (test code = Ca Norm WB) 1.13 1.05-1.25 [facility] [employer] NLBENVJ2539-82-29 08:46:00 Test Item Value Reference Range Interpretation Comments Antibody Scrn (test Negative (06/28/18 3:46 code = Antibody Scrn) AM) [facility] [employer] BDRUWMC9066-61-32 08:46:00 Test Item Value Reference Range Interpretation Comments ABO/Rh (test code = ABO/Rh) O POS [facility] [employer] IIGNP4635-01-96 08:46:00 Test Item Value Reference Range Interpretation Comments Magnesium Lvl (test code = Magnesium 1.9 1.8-2.4 Lvl) [facility] [employer] [id number] 08:46:00 Test Item Value Reference Range Interpretation Comments Phosphorus (test code = Phosphorus) 1.9 2.5-4.5 [facility] HospitalOnfmiupQUGWVPCPSETT6142-93-20 08:46:00 Test Item Value Reference Range Interpretation Comments AGAP (test code = AGAP) 13.0 10.0-20.0 [facility] HospitalEzmshqrAGRZONRPWZFA2805-58-42 08:46:00 Test Item Value Reference Range Interpretation Comments eGFR (test code = eGFR) 37 [facility] RrdqznzBRNZTOMSZWXR0006-62-26 08:46:00 Test Item Value Reference Range Interpretation Comments Calcium Lvl (test code = Calcium Lvl) 8.4 8.5-10.5 [facility] HospitalJskytjrNGJUVIRMKQWZ5270-80-15 08:46:00 Test Item Value Reference Range Interpretation Comments BUN (test code = BUN) 26 7-22 [facility]QhpjbfkQJKRTHOWUMNH9258-37-76 08:46:00 Test Item Value Reference Range Interpretation Comments Glucose Lvl (test code = Glucose Lvl) 119 70-99 [facility] HospitalCupdjmcWEIKJKEAWKHG5531-75-47 08:46:00 Test Item Value Reference Range Interpretation Comments Potassium Lvl (test code = Potassium 4.0 3.5-5.1 Lvl) [facility] HospitalVaecwitOMFFFSSZNBYM0297-00-07 08:46:00 Test Item Value Reference Range Interpretation Comments Sodium Lvl (test code = Sodium Lvl) 144 135-145 [facility] HospitalUshkuwnDLXRPKIUAFRE0076-44-65 08:46:00 Test Item Value Reference Range Interpretation Comments Creatinine Lvl (test code = Creatinine 1.76 0.50-1.40 Lvl) [facility] HospitalDepxqycJRTEKAKGPNJG9281-89-52 08:46:00 Test Item Value Reference Range Interpretation Comments Chloride Lvl (test code = Chloride Lvl) 114 95-109 [facility] HospitalOemowwvXVCQCGRHOJTI5641-39-88 08:46:00 Test Item Value Reference Range Interpretation Comments CO2 (test code = CO2) 21 24-32 [facility] HospitalQcffrhbJEZDUDRUHP3878-59-91 08:46:00 Test Item Value Reference Range Interpretation Comments INR (test code = INR) 1.07 1 0.85-1.17 [facility] HospitalHxxlinjHGLIMMPUFV3732-91-33 08:46:00 Test Item Value Reference Range Interpretation Comments PT (test code = PT) 13.7 s 12.0-14.7 [facility] HospitalAmgdrxjJHHBLLUHYP5150-22-17 08:46:00 Test Item Value Reference Range Interpretation Comments PTT (test code = PTT) 27.4 s 22.9-35.8 [facility] HospitalZcirqmeGKPRJWDADY9636-05-10 08:46:00 Test Item Value Reference Range Interpretation Comments TEG Interp (test Thrombelastograph results code = TEG show shortened value of R. Interp) This finding is suggestive of enzymatic hypercoagulation. CPT:19514 [facility] HospitalEvzyueaHBALZGZFWG7248-47-11 08:46:00 Test Item Value Reference Range Interpretation Comments Coag Index (test code 3.2 1 See_Comment [Auto mated message] The = Coag Index) system which g enerated this result transmit emory reference range : <=3.0. The reference range was not used to interpr et this result as dori l/abnormal. [facility] HospitalCrykolfYBYMNMNRHK5304-34-99 08:46:00 Test Item Value Reference Range Interpretation Comments TEG Data (test code = See Note (06/28/18 3:46 TEG Data) AM) [facility] HospitalDzjorpuZSXUXLFUXG2888-72-65 08:46:00 Test Item Value Reference Range Interpretation Comments G-value (test code = G-value) 9.8 4.5-11.0 [facility] HospitalFzoszwxMFRNVAOZWZ1187-62-97 08:46:00 Test Item Value Reference Range Interpretation Comments Ly30 (test code = 0.0 See_Comment [Automate d message] The Ly30) system which ge nerated this result transmit emory reference range : <=7.5. The reference range was not used to interpr et this result as dori l/abnormal. [facility] HospitalAvfejdvNYWVWRYOUS1963-60-45 08:46:00 Test Item Value Reference Range Interpretation Comments Max Amp (test code = Max Amp) 66.3 mm 50.0-70.0 [facility] HospitalSozpsxvFFTBDPBHZA1514-72-49 08:46:00 Test Item Value Reference Range Interpretation Comments K-time (test code = K-time) 1.7 min 1.0-3.0 [facility] HospitalCcfdusoJJYEMIRXLS5810-96-29 08:46:00 Test Item Value Reference Range Interpretation Comments Angle (test code = Angle) 68.4 degrees 53.0-72.0 [facility] HospitalJftzudjPQHGWFXYSR8764-92-60 08:46:00 Test Item Value Reference Range Interpretation Comments R-time (test code = R-time) 2.6 min 5.0-10.0 [facility] HospitalEmdpcfePQUIXMIYOI1921-81-05 08:46:00 Test Item Value Reference Range Interpretation Comments WBC (test code = WBC) 8.2 3.7-10.4 [facility] HospitalYjivqyjPMPTAFLWZJ6521-42-06 08:46:00 Test Item Value Reference Range Interpretation Comments MCHC (test code = MCHC) 33.7 32.0-36.0 [facility] HospitalGhohrtlKJYYMNMJNE9334-83-42 08:46:00 Test Item Value Reference Range Interpretation Comments MCH (test code = MCH) 30.3 pg 27.0-31.0 [facility] HospitalJhrmnabOULRXXTMFZ8114-05-11 08:46:00 Test Item Value Reference Range Interpretation Comments MCV (test code = MCV) 90.1 80.0-94.0 [facility] HospitalPdwydtdAFGKLJDGGI9697-30-80 08:46:00 Test Item Value Reference Range Interpretation Comments Hgb (test code = Hgb) 12.7 14.0-18.0 [place] 807209-03-21 08:46:00 Test Item Value Reference Range Interpretation Comments RBC (test code = RBC) 4.18 4.70-6.10 [facility] HospitalSzhuxuyUBHMZPZIZD7616-14-34 08:46:00 Test Item Value Reference Range Interpretation Comments Hct (test code = Hct) 37.7 42.0-54.0 [place] 807209-03-21 08:46:00 Test Item Value Reference Range Interpretation Comments RDW (test code = RDW) 16.1 11.5-14.5 [place] 19706-03-21 08:46:00 Test Item Value Reference Range Interpretation Comments MPV (test code = MPV) 8.6 7.4-10.4 [place] 807209-03-21 08:46:00 Test Item Value Reference Range Interpretation Comments Platelet (test code = Platelet) 203 133-450 [facility] HospitalFnyyhsxTYZUMWJZYK3125-74-30 08:46:00 Test Item Value Reference Range Interpretation Comments Lymphocytes # (test code = Lymphocytes 0.9 1.0-5.5 #) [facility] HospitalOmlhojbGXXBVZYYOE7665-84-59 08:46:00 Test Item Value Reference Range Interpretation Comments Monocytes # (test code 0.1 See_Comment [Aut omated message] The = Monocytes #) system which generated this result tra nsmitted reference range : <=0.8. The reference r efren was not used to int erpret this result as normal/abnormal . [facility] HospitalSqnbgpdMJKPSSPCIJ7463-57-24 08:46:00 Test Item Value Reference Range Interpretation Comments Basophils (test code = 0.6 See_Comment [Aut omated message] The Basophils) system which ge nerated this result tra nsmitted reference range : <=1.0. The reference r efren was not used to int erpret this result as normal/abnormal . [facility] HospitalJcmlceqQQLYKXYGXY8358-10-52 08:46:00 Test Item Value Reference Range Interpretation Comments Neutrophils # (test code = Neutrophils 7.2 1.5-8.1 #) [facility] HospitalOwhritxERJINEDTKC4532-26-98 08:46:00 Test Item Value Reference Range Interpretation Comments Eosinophils (test code = 0.1 See_Comment [A utomated message] The Eosinophils) system which ge nerated this result tra nsmitted reference range : <=4.0. The reference r efren was not used to int erpret this result as normal/abnormal . [facility] HospitalCzerivlJYEGROBQQD8005-24-94 08:46:00 Test Item Value Reference Range Interpretation Comments Monocytes (test code = Monocytes) 0.9 2.0-12.0 [facility] HospitalDeivyvwDTCINCMQCD4360-23-14 08:46:00 Test Item Value Reference Range Interpretation Comments Lymphocytes (test code = Lymphocytes) 10.5 20.0-40.0 [facility] HospitalLwkubagMSJDYGNYJH1546-58-22 08:46:00 Test Item Value Reference Range Interpretation Comments Segs (test code = Segs) 87.9 45.0-75.0 [facility] HospitalLmgatjcMATIFBRUYI8165-57-21 08:46:00 Test Item Value Reference Range Interpretation Comments Plt Morph (test code = Normal (06/28/18 3:46 Plt Morph) AM) [facility] HospitalUmybqjcMNVCBPMKFB4520-30-90 08:46:00 Test Item Value Reference Range Interpretation Comments RBC Morph (test code = Normal (06/28/18 3:46 RBC Morph) AM) [facility] HospitalATHY[facility] XIQEARA6873-55-28 08:46:00 Test Item Value Reference Range Interpretation Comments Ca Ion WB (test code = Ca Ion WB) 1.15 1.05-1.25 [facility] WRHXRMU0072-19-09 08:46:00 Test Item Value Reference Range Interpretation Comments Ca Norm WB (test code = Ca Norm WB) 1.13 1.05-[address] [facility] YCRIZGV7663-84-77 08:46:00 Test Item Value Reference Range Interpretation Comments Antibody Scrn (test Negative (06/28/18 3:46 code = Antibody Scrn) AM) [facility] BOJLRDQ1539-55-36 08:46:00 Test Item Value Reference Range Interpretation Comments ABO/Rh (test code = ABO/Rh) [facility]CHE[facility] IEJWX9099-17-91 08:46:00 Test Item Value Reference Range Interpretation Comments Magnesium Lvl (test code = Magnesium 1.9 1.8-2.4 Lvl) [facility]CHE[facility] HAHSR7627-85-11 08:46:00 Test Item Value Reference Range Interpretation Comments Phosphorus (test code = Phosphorus) 1.9 2.5-4.5 [facility] HospitalNqdyzafWIKWQWESJYQP2668-85-62 08:46:00 Test Item Value Reference Range Interpretation Comments AGAP (test code = AGAP) 13.0 10.0-20.0 [facility] HospitalXipfzccPCCCDEKBWNVG2571-62-85 08:46:00 Test Item Value Reference Range Interpretation Comments eGFR (test code = eGFR) 37 [facility] HospitalUmlxojhRZZFSYOXCOIW5621-43-53 08:46:00 Test Item Value Reference Range Interpretation Comments Calcium Lvl (test code = Calcium Lvl) 8.4 8.5-10.5 [facility] HospitalOdmdgyaAWALPYYXGGGZ2616-68-34 08:46:00 Test Item Value Reference Range Interpretation Comments BUN (test code = BUN) 26 7-22 [facility] HospitalOninagpGHUVYFVDORSX3469-43-95 08:46:00 Test Item Value Reference Range Interpretation Comments Glucose Lvl (test code = Glucose Lvl) 119 70-99 [facility] HospitalLrcxthaPKNVHIGJFAPC4435-34-82 08:46:00 Test Item Value Reference Range Interpretation Comments Potassium Lvl (test code = Potassium 4.0 3.5-5.1 Lvl) [facility] HospitalRqgrixeTPINLBHQEHBN7499-93-89 08:46:00 Test Item Value Reference Range Interpretation Comments Sodium Lvl (test code = Sodium Lvl) 144 135-145 [facility] HospitalVhvtdskMRAKOCAUKCWA3469-58-50 08:46:00 Test Item Value Reference Range Interpretation Comments Creatinine Lvl (test code = Creatinine 1.76 0.50-1.40 Lvl) [facility] HospitalAgxkyvoHMPQOYKBKSCA1654-61-60 08:46:00 Test Item Value Reference Range Interpretation Comments Chloride Lvl (test code = Chloride Lvl) 114 95-109 [facility] HospitalWgnxeqoOUFLGSVBSPQI4220-88-26 08:46:00 Test Item Value Reference Range Interpretation Comments CO2 (test code = CO2) 21 24-32 [facility] HospitalTqbspwuCPLJBCWKLA1726-26-66 08:46:00 Test Item Value Reference Range Interpretation Comments INR (test code = INR) 1.07 1 0.85-1.17 [facility] HospitalNghfyzpRXGXXFOGNJ2303-54-58 08:46:00 Test Item Value Reference Range Interpretation Comments PT (test code = PT) 13.7 s 12.0-14.7 [facility] HospitalBrmvscpYKHDFUKIME2620-14-39 08:46:00 Test Item Value Reference Range Interpretation Comments PTT (test code = PTT) 27.4 s 22.9-35.8 [facility] HospitalMlusdusTIELELLTTP5125-30-46 08:46:00 Test Item Value Reference Range Interpretation Comments TEG Interp (test Thrombelastograph results code = TEG show shortened value of R. Interp) This finding is suggestive of enzymatic hypercoagulation. CPT:71535 [facility] HospitalMyrpdyjNKYWZNAEVU2974-74-27 08:46:00 Test Item Value Reference Range Interpretation Comments Coag Index (test code 3.2 1 See_Comment [Auto mated message] The = Coag Index) system which g enerated this result transmit emory reference range : <=3.0. The reference range was not used to interpr et this result as dori l/abnormal. [facility] HospitalCvkivxwJSRDBVIWAS6191-04-67 08:46:00 Test Item Value Reference Range Interpretation Comments TEG Data (test code = See Note (06/28/18 3:46 TEG Data) AM) [facility] HospitalZagenyoNWOCOZPMTV6062-85-04 08:46:00 Test Item Value Reference Range Interpretation Comments G-value (test code = G-value) 9.8 4.5-11.0 [facility] HospitalUmqcoviKKBEGRTEYW2982-29-95 08:46:00 Test Item Value Reference Range Interpretation Comments Ly30 (test code = 0.0 See_Comment [Automate d message] The Ly30) system which ge nerated this result transmit emory reference range : <=7.5. The reference range was not used to interpr et this result as dori l/abnormal. [facility] HospitalLetmdsqMADXMZOBLP4400-09-56 08:46:00 Test Item Value Reference Range Interpretation Comments Max Amp (test code = Max Amp) 66.3 mm 50.0-70.0 [facility] HospitalKisruitGHTGDEJXKW7641-11-61 08:46:00 Test Item Value Reference Range Interpretation Comments K-time (test code = K-time) 1.7 min 1.0-3.0 [facility] HospitalVsbmchwKQHHXVQSYL2874-40-62 08:46:00 Test Item Value Reference Range Interpretation Comments Angle (test code = Angle) 68.4 degrees 53.0-72.0 [facility] HospitalWqclrcgRYBDJYMFUH9393-82-27 08:46:00 Test Item Value Reference Range Interpretation Comments R-time (test code = R-time) 2.6 min 5.0-10.0 [facility] HospitalSgqurleWTXIZTHCYH9900-99-94 08:46:00 Test Item Value Reference Range Interpretation Comments WBC (test code = WBC) 8.2 3.7-10.4 [facility] HospitalQbxfezlFYPXPQNAXK9468-14-66 08:46:00 Test Item Value Reference Range Interpretation Comments MCHC (test code = MCHC) 33.7 32.0-36.0 [facility] HospitalHnthgfeWDNBFIXUZZ1335-49-11 08:46:00 Test Item Value Reference Range Interpretation Comments MCH (test code = MCH) 30.3 pg 27.0-31.0 [facility] HospitalPrlwksrANSWSINUBI0907-34-23 08:46:00 Test Item Value Reference Range Interpretation Comments MCV (test code = MCV) 90.1 80.0-94.0 [facility] HospitalMemwpcsOEWOQZSQJD7012-04-69 08:46:00 Test Item Value Reference Range Interpretation Comments Hgb (test code = Hgb) 12.7 14.0-18.0 [facility] HospitalIclnrhcLZWZZQPWMJ6142-21-31 08:46:00 Test Item Value Reference Range Interpretation Comments RBC (test code = RBC) 4.18 4.70-6.10 [facility] HospitalYotsfhiFQQEGLKNUW8549-73-79 08:46:00 Test Item Value Reference Range Interpretation Comments Hct (test code = Hct) 37.7 42.0-54.0 [facility] HospitalBihxobfXMNDWDIWLX0843-52-13 08:46:00 Test Item Value Reference Range Interpretation Comments RDW (test code = RDW) 16.1 11.5-14.5 [facility] HospitalIyquazxJBDDRLRFFQ4392-57-34 08:46:00 Test Item Value Reference Range Interpretation Comments MPV (test code = MPV) 8.6 7.4-10.4 [facility] HospitalXcusgweHUBISOWXQV8684-75-54 08:46:00 Test Item Value Reference Range Interpretation Comments Platelet (test code = Platelet) 203 133-450 [facility] HospitalEiqraitBWKHVOBCIW7367-34-69 08:46:00 Test Item Value Reference Range Interpretation Comments Lymphocytes # (test code = Lymphocytes 0.9 1.0-5.5 #) [facility] HospitalUhigjemJUXDVBKXUO7794-08-30 08:46:00 Test Item Value Reference Range Interpretation Comments Monocytes # (test code 0.1 See_Comment [Aut omated message] The = Monocytes #) system which generated this result tra nsmitted reference range : <=0.8. The reference r efren was not used to int erpret this result as normal/abnormal . [facility] HospitalFyanalpGCMGVOPXVG0072-88-03 08:46:00 Test Item Value Reference Range Interpretation Comments Basophils (test code = 0.6 See_Comment [Aut omated message] The Basophils) system which ge nerated this result tra nsmitted reference range : <=1.0. The reference r efren was not used to int erpret this result as normal/abnormal . [facility] HospitalZsisbjlXKIVYCZEQC8266-90-53 08:46:00 Test Item Value Reference Range Interpretation Comments Neutrophils # (test code = Neutrophils 7.2 1.5-8.1 #) [facility] HospitalTpmcpokGRMEJSNUUM9249-98-73 08:46:00 Test Item Value Reference Range Interpretation Comments Eosinophils (test code = 0.1 See_Comment [A utomated message] The Eosinophils) system which ge nerated this result tra nsmitted reference range : <=4.0. The reference r efren was not used to int erpret this result as normal/abnormal . [facility] HospitalWwnhgtsEGIKLAUNAD6097-50-81 08:46:00 Test Item Value Reference Range Interpretation Comments Monocytes (test code = Monocytes) 0.9 2.0-12.0 [facility] HospitalOqiwdtbLYHOHWZWOY0159-74-68 08:46:00 Test Item Value Reference Range Interpretation Comments Lymphocytes (test code = Lymphocytes) 10.5 20.0-40.0 [facility] HospitalWrvdjggSUWLLUQVSA1188-62-66 08:46:00 Test Item Value Reference Range Interpretation Comments Segs (test code = Segs) 87.9 45.0-75.0 [facility] HospitalZbotypbUMLQMUBWOP3080-52-57 08:46:00 Test Item Value Reference Range Interpretation Comments Plt Morph (test code = Normal (06/28/18 3:46 Plt Morph) AM) [facility] HospitalBpoisugGXOWLROUAN5454-56-90 08:46:00 Test Item Value Reference Range Interpretation Comments RBC Morph (test code = Normal (06/28/18 3:46 RBC Morph) AM) [facility]SocialDeckATHYROID ZZKCWJJ2236-00-05 08:46:00 Test Item Value Reference Range Interpretation Comments Ca Ion WB (test code = Ca Ion WB) 1.15 1.05-1.25 [facility] HospitalSocialDeckATHYROID NBHKCBG5667-68-07 08:46:00 Test Item Value Reference Range Interpretation Comments Ca Norm WB (test code = Ca Norm WB) 1.13 1.05-1.25 [facility] [employer] MMMTEZT1080-10-80 08:46:00 Test Item Value Reference Range Interpretation Comments Antibody Scrn (test Negative (06/28/18 3:46 code = Antibody Scrn) AM) [facility] [employer] VFDQHHV5454-69-51 08:46:00 Test Item Value Reference Range Interpretation Comments ABO/Rh (test code = ABO/Rh) O POS [facility] [employer] [id number] 08:46:00 Test Item Value Reference Range Interpretation Comments Magnesium Lvl (test code = Magnesium 1.9 1.8-2.4 Lvl) [facility] [employer] [id number] 08:46:00 Test Item Value Reference Range Interpretation Comments Phosphorus (test code = Phosphorus) 1.9 2.5-4.5 [facility] KfncalbGUVHUDAQKVJP9419-89-58 08:46:00 Test Item Value Reference Range Interpretation Comments AGAP (test code = AGAP) 13.0 10.0-20.0 [facility] NxtegbsYFBUWPPGUOGU8206-45-87 08:46:00 Test Item Value Reference Range Interpretation Comments eGFR (test code = eGFR) 37 [facility] HospitalZovcqcoOXGXXINPUPRV3665-19-90 08:46:00 Test Item Value Reference Range Interpretation Comments Calcium Lvl (test code = Calcium Lvl) 8.4 8.5-10.5 [facility] HospitalWsbzpeeMTHTETRVQBUL7797-57-25 08:46:00 Test Item Value Reference Range Interpretation Comments BUN (test code = BUN) 26 7-22 [facility] HospitalMhipfolSPTFVMTGJXNU2072-17-05 08:46:00 Test Item Value Reference Range Interpretation Comments Glucose Lvl (test code = Glucose Lvl) 119 70-99 [facility] HospitalUtwervbJRYAEAYQQPQT3487-76-29 08:46:00 Test Item Value Reference Range Interpretation Comments Potassium Lvl (test code = Potassium 4.0 3.5-5.1 Lvl) [facility]FbxgxgxETDJTQTNSNEH7101-11-66 08:46:00 Test Item Value Reference Range Interpretation Comments Sodium Lvl (test code = Sodium Lvl) 144 135-145 [facility] HospitalFplyczrKGZCQSTQJJUO8981-99-12 08:46:00 Test Item Value Reference Range Interpretation Comments Creatinine Lvl (test code = Creatinine 1.76 0.50-1.40 Lvl) [facility] HospitalDuwlwqjIPIUNXIOIJAI4221-79-06 08:46:00 Test Item Value Reference Range Interpretation Comments Chloride Lvl (test code = Chloride Lvl) 114 95-109 [facility] HospitalOdtstscZJEJBRFPTWIV4014-28-03 08:46:00 Test Item Value Reference Range Interpretation Comments CO2 (test code = CO2) 24-32 [facility] HospitalYnujimjPQXUHWKHRY5521-38-84 08:46:00 Test Item Value Reference Range Interpretation Comments INR (test code = INR) 1.07 1 0.85-1.17 [facility] HospitalTxxzkcgSRSZVTOOHE3922-77-72 08:46:00 Test Item Value Reference Range Interpretation Comments PT (test code = PT) 13.7 s 12.0-14.7 [facility] HospitalDtnvweoZORFHFHYCM2061-03-21 08:46:00 Test Item Value Reference Range Interpretation Comments PTT (test code = PTT) 27.4 s 22.9-35.8 [facility] HospitalDgucnccEUPFPALOER7566-83-60 08:46:00 Test Item Value Reference Range Interpretation Comments TEG Interp (test Thrombelastograph results code = TEG show shortened value of R. Interp) This finding is suggestive of enzymatic hypercoagulation. CPT:14030 [facility] HospitalGhwlzlxCQYIHUYRCT4222-11-80 08:46:00 Test Item Value Reference Range Interpretation Comments Coag Index (test code 3.2 1 See_Comment [Auto mated message] The = Coag Index) system which g enerated this result transmit emory reference range : <=3.0. The reference range was not used to interpr et this result as dori l/abnormal. [facility] HospitalAiynqjeXJTYYURCED3024-83-14 08:46:00 Test Item Value Reference Range Interpretation Comments TEG Data (test code = See Note (06/28/18 3:46 TEG Data) AM) [facility] HospitalAfsuacuQWZSDYLEHF8981-94-45 08:46:00 Test Item Value Reference Range Interpretation Comments G-value (test code = G-value) 9.8 4.5-11.0 [facility] HospitalSpirvdhYBFGBEPWHK7474-19-09 08:46:00 Test Item Value Reference Range Interpretation Comments Ly30 (test code = 0.0 See_Comment [Automate d message] The Ly30) system which ge nerated this result transmit emory reference range : <=7.5. The reference range was not used to interpr et this result as dori l/abnormal. [facility] HospitalSldzaaqMCQWDNDSKV5963-04-92 08:46:00 Test Item Value Reference Range Interpretation Comments Max Amp (test code = Max Amp) 66.3 mm 50.0-70.0 [facility] HospitalOhrquqsWKSABWXSCG0105-24-73 08:46:00 Test Item Value Reference Range Interpretation Comments K-time (test code = K-time) 1.7 min 1.0-3.0 [facility] HospitalMfkzyuyMKQJJUUHCC5364-61-73 08:46:00 Test Item Value Reference Range Interpretation Comments Angle (test code = Angle) 68.4 degrees 53.0-72.0 [facility] HospitalGpqxnjpHPYNKPIVHD3734-24-61 08:46:00 Test Item Value Reference Range Interpretation Comments R-time (test code = R-time) 2.6 min 5.0-10.0 [facility] HospitalUxnrhaeBJVYKPZVHI8039-66-50 08:46:00 Test Item Value Reference Range Interpretation Comments WBC (test code = WBC) 8.2 3.7-10.4 [facility] HospitalMwmeznrKEIHTNULDA5565-13-88 08:46:00 Test Item Value Reference Range Interpretation Comments MCHC (test code = MCHC) 33.7 32.0-36.0 [facility] HospitalDvbnclzAOWEVSUOQC4003-07-63 08:46:00 Test Item Value Reference Range Interpretation Comments MCH (test code = MCH) 30.3 pg 27.0-31.0 [facility] HospitalSjbpageTDMNAUZDEF9948-62-38 08:46:00 Test Item Value Reference Range Interpretation Comments MCV (test code = MCV) 90.1 80.0-94.0 [facility] HospitalLjukhgwJTVWDKVRST2984-78-05 08:46:00 Test Item Value Reference Range Interpretation Comments Hgb (test code = Hgb) 12.7 14.0-18.0 [facility] HospitalXhihdnvSJTVSGDSBF7178-35-08 08:46:00 Test Item Value Reference Range Interpretation Comments RBC (test code = RBC) 4.18 4.70-6.10 [facility] HospitalTbpveldMVLKIZRARC5388-70-18 08:46:00 Test Item Value Reference Range Interpretation Comments Hct (test code = Hct) 37.7 42.0-54.0 [place] 807209-03-21 08:46:00 Test Item Value Reference Range Interpretation Comments RDW (test code = RDW) 16.1 11.5-14.5 [facility] HospitalAearctkRIXDCCWZKS6721-34-20 08:46:00 Test Item Value Reference Range Interpretation Comments MPV (test code = MPV) 8.6 7.4-10.4 [facility] HospitalEsiyfnlSZMORCNKRY4546-06-57 08:46:00 Test Item Value Reference Range Interpretation Comments Platelet (test code = Platelet) 203 133-450 [facility] HospitalWfgowmzOVTRHASQUH9378-90-97 08:46:00 Test Item Value Reference Range Interpretation Comments Lymphocytes # (test code = Lymphocytes 0.9 1.0-5.5 #) [facility] HospitalMmvtoonRRIOBRHTKL9095-20-40 08:46:00 Test Item Value Reference Range Interpretation Comments Monocytes # (test code 0.1 See_Comment [Aut omated message] The = Monocytes #) system which generated this result tra nsmitted reference range : <=0.8. The reference r efren was not used to int erpret this result as normal/abnormal . [facility] HospitalTmwvjsnDQRTDRKVNT2406-00-30 08:46:00 Test Item Value Reference Range Interpretation Comments Basophils (test code = 0.6 See_Comment [Aut omated message] The Basophils) system which ge nerated this result tra nsmitted reference range : <=1.0. The reference r efren was not used to int erpret this result as normal/abnormal . [facility] HospitalUstlplrYMTDWAITNU2973-78-31 08:46:00 Test Item Value Reference Range Interpretation Comments Neutrophils # (test code = Neutrophils 7.2 1.5-8.1 #) [facility] HospitalFqzuhhfATDMQAORXF9166-62-66 08:46:00 Test Item Value Reference Range Interpretation Comments Eosinophils (test code = 0.1 See_Comment [A utomated message] The Eosinophils) system which ge nerated this result tra nsmitted reference range : <=4.0. The reference r efren was not used to int erpret this result as normal/abnormal . [facility] HospitalZhculwsQKEUUAOJHR2485-12-31 08:46:00 Test Item Value Reference Range Interpretation Comments Monocytes (test code = Monocytes) 0.9 2.0-12.0 [facility] HospitalZosykfkEHKWTUTWFR8543-56-89 08:46:00 Test Item Value Reference Range Interpretation Comments Lymphocytes (test code = Lymphocytes) 10.5 20.0-40.0 [facility] HospitalBoeuuaeVOVUCQAKPK2823-65-16 08:46:00 Test Item Value Reference Range Interpretation Comments Segs (test code = Segs) 87.9 45.0-75.0 [facility] HospitalOdswgbpPNGDTIJKEM7692-07-64 08:46:00 Test Item Value Reference Range Interpretation Comments Plt Morph (test code = Normal (06/28/18 3:46 Plt Morph) AM) [facility] HospitalEpghtvpDIVZBWOWXH7451-50-53 08:46:00 Test Item Value Reference Range Interpretation Comments RBC Morph (test code = Normal (06/28/18 3:46 RBC Morph) AM) [facility] ZZUOWUN5893-09-79 08:46:00 Test Item Value Reference Range Interpretation Comments Ca Ion WB (test code = Ca Ion WB) 1.15 1.05-1.25 [facility] EXIQBXT8863-04-93 08:46:00 Test Item Value Reference Range Interpretation Comments Ca Norm WB (test code = Ca Norm WB) 1.13 1.05-1.25 [facility]2019-03-20 05:21:00 Test Item Value Reference Range Interpretation Comments eGFR (test code = eGFR) 35 [facility]2019-03-20 05:21:00 Test Item Value Reference Range Interpretation Comments Calcium Lvl (test code = Calcium Lvl) 8.7 8.5-10.5 [facility]2019-03-20 05:21:00 Test Item Value Reference Range Interpretation Comments CO2 (test code = CO2) 24 24-32 [facility]2019-03-20 05:21:00 Test Item Value Reference Range Interpretation Comments Sodium Lvl (test code = Sodium Lvl) 144 135-145 [facility]2019-03-20 05:21:00 Test Item Value Reference Range Interpretation Comments Creatinine Lvl (test code = Creatinine 1.85 0.50-1.40 Lvl) [facility]2019-03-20 05:21:00 Test Item Value Reference Range Interpretation Comments Potassium Lvl (test code = Potassium 4.0 3.5-5.1 Lvl) [facility]2019-03-20 05:21:00 Test Item Value Reference Range Interpretation Comments Chloride Lvl (test code = Chloride Lvl) 113 95-109 [facility]2019-03-20 05:21:00 Test Item Value Reference Range Interpretation Comments BUN (test code = BUN) 25 7-22 [place] 115169-03-20 05:21:00 Test Item Value Reference Range Interpretation Comments Glucose Lvl (test code = Glucose Lvl) 88 70-99 [facility]2019-03-20 05:21:00 Test Item Value Reference Range Interpretation Comments AGAP (test code = AGAP) 11.0 10.0-20.0 [place] 115169-03-20 05:21:00 Test Item Value Reference Range Interpretation Comments Phosphorus (test code = Phosphorus) 3.3 2.5-4.5 [facility]2019-03-20 05:21:00 Test Item Value Reference Range Interpretation Comments Magnesium Lvl (test code = Magnesium 2.0 1.8-2.4 Lvl) [facility] HospitalEkovsajQHBHJDCYEH7140-35-87 05:21:00 Test Item Value Reference Range Interpretation Comments Basophils # (test code 0.1 See_Comment [Aut omated message] The = Basophils #) system which generated this result tra nsmitted reference range : <=0.2. The reference r efren was not used to int erpret this result as normal/abnormal . [facility] HospitalAmibekpHAOXJAEZQJ2299-17-37 05:21:00 Test Item Value Reference Range Interpretation Comments Eosinophils # (test code 0.1 See_Comment [A utomated message] The = Eosinophils #) system whic h generated this result tra nsmitted reference range : <=0.5. The reference r efren was not used to int erpret this result as normal/abnormal . [facility] HospitalUytgvxmRHAUSUXWQL0694-98-26 05:21:00 Test Item Value Reference Range Interpretation Comments Plt Morph (test code = Normal (06/27/18 12:21 Plt Morph) AM) [facility] HospitalPrsbuqmPRLSBGCOTH7064-79-13 05:21:00 Test Item Value Reference Range Interpretation Comments Segs (test code = Segs) 64.6 45.0-75.0 [facility] HospitalYyltiqvGCGQHFQMGD3650-28-29 05:21:00 Test Item Value Reference Range Interpretation Comments Lymphocytes (test code = Lymphocytes) 25.7 20.0-40.0 [facility] HospitalPqvvokoMDPRGYQIXG7661-70-72 05:21:00 Test Item Value Reference Range Interpretation Comments Eosinophils (test code = 2.0 See_Comment [A utomated message] The Eosinophils) system which ge nerated this result tra nsmitted reference range : <=4.0. The reference r efren was not used to int erpret this result as normal/abnormal . [facility] HospitalSkqucxtAUWRDWABEB3938-95-93 05:21:00 Test Item Value Reference Range Interpretation Comments Monocytes (test code = Monocytes) 6.8 2.0-12.0 [facility] HospitalAqjftfnZREZFHONWT7925-17-74 05:21:00 Test Item Value Reference Range Interpretation Comments Neutrophils # (test code = Neutrophils 4.1 1.5-8.1 #) [facility] HospitalXtvinuaREQMMJAYCX1342-97-61 05:21:00 Test Item Value Reference Range Interpretation Comments Basophils (test code = 0.9 See_Comment [Aut omated message] The Basophils) system which ge nerated this result tra nsmitted reference range : <=1.0. The reference r efren was not used to int erpret this result as normal/abnormal . [facility] HospitalDbxgcpjQQFFSJZHKR5594-32-49 05:21:00 Test Item Value Reference Range Interpretation Comments Monocytes # (test code 0.4 See_Comment [Aut omated message] The = Monocytes #) system which generated this result tra nsmitted reference range : <=0.8. The reference r efren was not used to int erpret this result as normal/abnormal . [facility] HospitalJrwaweuFCJNYUBXBJ5048-21-19 05:21:00 Test Item Value Reference Range Interpretation Comments Lymphocytes # (test code = Lymphocytes 1.6 1.0-5.5 #) [facility] HospitalOdkaqmsLBQMFAXUWU7449-84-98 05:21:00 Test Item Value Reference Range Interpretation Comments RBC Morph (test code = Normal (06/27/18 12:21 RBC Morph) AM) [facility] HospitalGhdmlxpBSOASTMXVP2874-53-89 05:21:00 Test Item Value Reference Range Interpretation Comments TEG Interp (test Thrombelastograph results code = TEG show shortened value of R. Interp) This finding is suggestive of enzymatic hypercoagulation. CPT:21775 [facility] HospitalWghbqajWGFSOAMPJK2882-42-85 05:21:00 Test Item Value Reference Range Interpretation Comments Ly30 (test code = 0.0 See_Comment [Automate d message] The Ly30) system which ge nerated this result transmit emory reference range : <=7.5. The reference range was not used to interpr et this result as dori l/abnormal. [facility] HospitalZtnaeilOHHZWRXOKF6159-58-24 05:21:00 Test Item Value Reference Range Interpretation Comments G-value (test code = G-value) 10.5 4.5-11.0 [facility] HospitalUjsvoebJKCPPDFIOY6082-18-93 05:21:00 Test Item Value Reference Range Interpretation Comments Coag Index (test code 3.2 1 See_Comment [Auto mated message] The = Coag Index) system which g enerated this result transmit emory reference range : <=3.0. The reference range was not used to interpr et this result as dori l/abnormal. [facility] HospitalEefcitrSFPRXNIVIT5596-00-00 05:21:00 Test Item Value Reference Range Interpretation Comments K-time (test code = K-time) 1.4 min 1.0-3.0 [facility] HospitalHceizyfSHBNRHONZD2744-95-31 05:21:00 Test Item Value Reference Range Interpretation Comments Angle (test code = Angle) 70.7 degrees 53.0-72.0 [facility] HospitalBboqixpWMNTCJERUR5385-75-57 05:21:00 Test Item Value Reference Range Interpretation Comments Max Amp (test code = Max Amp) 67.8 mm 50.0-70.0 [facility] HospitalCuzstsyWVCPGLICCR7342-46-59 05:21:00 Test Item Value Reference Range Interpretation Comments R-time (test code = R-time) 3.2 min 5.0-10.0 [facility] HospitalIcxfuqyBJBFLLVUAT7906-69-39 05:21:00 Test Item Value Reference Range Interpretation Comments TEG Data (test code = See Note (06/27/18 12:21 TEG Data) AM) [facility] HospitalRqvonatPTUVSDQUKO7321-50-71 05:21:00 Test Item Value Reference Range Interpretation Comments INR (test code = INR) 1.05 1 0.85-1.17 [facility] HospitalZofcrhaRZITTJAKOT3188-92-56 05:21:00 Test Item Value Reference Range Interpretation Comments PT (test code = PT) 13.5 s 12.0-14.7 [facility] HospitalJptdzkkRZLMHJOXWE8967-77-12 05:21:00 Test Item Value Reference Range Interpretation Comments PTT (test code = PTT) 33.5 s 22.9-35.8 [facility] HospitalBukylpsHEJBSFXCXF9956-95-28 05:21:00 Test Item Value Reference Range Interpretation Comments MCH (test code = MCH) 30.3 pg 27.0-31.0 [facility] HospitalTraromrXKGCYDYCIZ9185-83-76 05:21:00 Test Item Value Reference Range Interpretation Comments MCV (test code = MCV) 90.2 80.0-94.0 [facility] HospitalSrejsgzKJCYQUDOXB8833-02-29 05:21:00 Test Item Value Reference Range Interpretation Comments MPV (test code = MPV) 7.7 7.4-10.4 [facility] HospitalUswtmyvVTBJQWOWXK5200-79-60 05:21:00 Test Item Value Reference Range Interpretation Comments Platelet (test code = Platelet) 190 133-450 [facility] HospitalQgyhkekFACQOYRZTV8640-31-05 05:21:00 Test Item Value Reference Range Interpretation Comments MCHC (test code = MCHC) 33.5 32.0-36.0 [facility] HospitalUjgivzqXSJYXBRSGU4194-27-52 05:21:00 Test Item Value Reference Range Interpretation Comments RDW (test code = RDW) 16.1 11.5-14.5 [facility] HospitalBbufpiqIGCDYUOBYE2347-96-78 05:21:00 Test Item Value Reference Range Interpretation Comments WBC (test code = WBC) 6.3 3.7-10.4 [facility] HospitalCwomnpvFICOEPDHGJ9808-02-40 05:21:00 Test Item Value Reference Range Interpretation Comments Hgb (test code = Hgb) 13.3 14.0-18.0 [facility] HospitalTgngzzzHPTLDUZCLO0942-87-42 05:21:00 Test Item Value Reference Range Interpretation Comments Hct (test code = Hct) 39.6 42.0-54.0 [facility] HospitalCnxhbxcDYTRRWHPXQ0109-18-81 05:21:00 Test Item Value Reference Range Interpretation Comments RBC (test code = RBC) 4.39 4.70-6.10 [facility]2019-03-20 05:21:00 Test Item Value Reference Range Interpretation Comments Ca Norm WB (test code = Ca Norm WB) 1.12 1.05-1.25 [facility]2019-03-20 05:21:00 Test Item Value Reference Range Interpretation Comments Ca Ion WB (test code = Ca Ion WB) 1.15 1.05-1.25 [facility]2019-03-20 05:21:00 Test Item Value Reference Range Interpretation Comments eGFR (test code = eGFR) 35 [facility]2019-03-20 05:21:00 Test Item Value Reference Range Interpretation Comments Calcium Lvl (test code = Calcium Lvl) 8.7 8.5-10.5 [facility]2019-03-20 05:21:00 Test Item Value Reference Range Interpretation Comments CO2 (test code = CO2) 24 24-32 [facility]2019-03-20 05:21:00 Test Item Value Reference Range Interpretation Comments Sodium Lvl (test code = Sodium Lvl) 144 135-145 [facility]2019-03-20 05:21:00 Test Item Value Reference Range Interpretation Comments Creatinine Lvl (test code = Creatinine 1.85 0.50-1.40 Lvl) [facility]2019-03-20 05:21:00 Test Item Value Reference Range Interpretation Comments Potassium Lvl (test code = Potassium 4.0 3.5-5.1 Lvl) [facility]2019-03-20 05:21:00 Test Item Value Reference Range Interpretation Comments Chloride Lvl (test code = Chloride Lvl) 113 95-109 [facility]2019-03-20 05:21:00 Test Item Value Reference Range Interpretation Comments BUN (test code = BUN) 25 7-22 [facility]2019-03-20 05:21:00 Test Item Value Reference Range Interpretation Comments Glucose Lvl (test code = Glucose Lvl) 88 70-99 [facility]2019-03-20 05:21:00 Test Item Value Reference Range Interpretation Comments AGAP (test code = AGAP) 11.0 10.0-20.0 [facility]2019-03-20 05:21:00 Test Item Value Reference Range Interpretation Comments Phosphorus (test code = Phosphorus) 3.3 2.5-4.5 [facility] [id number] 05:21:00 Test Item Value Reference Range Interpretation Comments Magnesium Lvl (test code = Magnesium 2.0 1.8-2.4 Lvl) [id number] 05:21:00 Test Item Value Reference Range Interpretation Comments Basophils # (test code 0.1 See_Comment [Aut omated message] The = Basophils #) system which generated this result tra nsmitted reference range : <=0.2. The reference r efren was not used to int erpret this result as normal/abnormal . [facility] HospitalCubsdxfXXIOMHDMVC9098-72-15 05:21:00 Test Item Value Reference Range Interpretation Comments Eosinophils # (test code 0.1 See_Comment [A utomated message] The = Eosinophils #) system whic h generated this result tra nsmitted reference range : <=0.5. The reference r efren was not used to int erpret this result as normal/abnormal . [facility] HospitalHlngxkzQKYKSKUONF3673-56-27 05:21:00 Test Item Value Reference Range Interpretation Comments Plt Morph (test code = Normal (06/27/18 12:21 Plt Morph) AM) [facility] HospitalTifiewfBRIFIXVZTC4323-07-82 05:21:00 Test Item Value Reference Range Interpretation Comments Segs (test code = Segs) 64.6 45.0-75.0 [facility] HospitalKnqnbiaRLTZMPKYML5638-02-89 05:21:00 Test Item Value Reference Range Interpretation Comments Lymphocytes (test code = Lymphocytes) 25.7 20.0-40.0 [facility] HospitalBavkpyiOPCNYHFUME6652-06-98 05:21:00 Test Item Value Reference Range Interpretation Comments Eosinophils (test code = 2.0 See_Comment [A utomated message] The Eosinophils) system which ge nerated this result tra nsmitted reference range : <=4.0. The reference r efren was not used to int erpret this result as normal/abnormal . [facility] HospitalYzdxhprTODETGORUH4225-73-66 05:21:00 Test Item Value Reference Range Interpretation Comments Monocytes (test code = Monocytes) 6.8 2.0-12.0 [facility] HospitalEvvbafmJXHTLQIFJX4535-61-79 05:21:00 Test Item Value Reference Range Interpretation Comments Neutrophils # (test code = Neutrophils 4.1 1.5-8.1 #) [facility] HospitalMgrzixfRGXSZGSLOS3881-10-55 05:21:00 Test Item Value Reference Range Interpretation Comments Basophils (test code = 0.9 See_Comment [Aut omated message] The Basophils) system which ge nerated this result tra nsmitted reference range : <=1.0. The reference r efren was not used to int erpret this result as normal/abnormal . [facility] HospitalMcnlbuwUGKLCDXPEG8797-11-77 05:21:00 Test Item Value Reference Range Interpretation Comments Monocytes # (test code 0.4 See_Comment [Aut omated message] The = Monocytes #) system which generated this result tra nsmitted reference range : <=0.8. The reference r efren was not used to int erpret this result as normal/abnormal . [facility] HospitalWvziqyzYCEJGWBBLN7200-52-64 05:21:00 Test Item Value Reference Range Interpretation Comments Lymphocytes # (test code = Lymphocytes 1.6 1.0-5.5 #) [facility] HospitalJuvniouUUDYMHWOQN2869-57-55 05:21:00 Test Item Value Reference Range Interpretation Comments RBC Morph (test code = Normal (06/27/18 12:21 RBC Morph) AM) [facility] HospitalOslmmmpWSVMKSNUWA4706-27-21 05:21:00 Test Item Value Reference Range Interpretation Comments TEG Interp (test Thrombelastograph results code = TEG show shortened value of R. Interp) This finding is suggestive of enzymatic hypercoagulation. CPT:70144 [facility] HospitalDostcxdBDGRMGENSV4912-91-38 05:21:00 Test Item Value Reference Range Interpretation Comments Ly30 (test code = 0.0 See_Comment [Automate d message] The Ly30) system which ge nerated this result transmit emory reference range : <=7.5. The reference range was not used to interpr et this result as dori l/abnormal. [facility] HospitalCqnqffdZRDWBCRZLY3110-42-68 05:21:00 Test Item Value Reference Range Interpretation Comments G-value (test code = G-value) 10.5 4.5-11.0 [facility] HospitalKxrjapnVBSNLDGUVS8603-20-47 05:21:00 Test Item Value Reference Range Interpretation Comments Coag Index (test code 3.2 1 See_Comment [Auto mated message] The = Coag Index) system which g enerated this result transmit emory reference range : <=3.0. The reference range was not used to interpr et this result as dori l/abnormal. [facility] HospitalFzdykfgJGETHHBRBE3133-43-25 05:21:00 Test Item Value Reference Range Interpretation Comments K-time (test code = K-time) 1.4 min 1.0-3.0 [facility] HospitalSrnwgiwVWGJXQOWZD8003-26-93 05:21:00 Test Item Value Reference Range Interpretation Comments Angle (test code = Angle) 70.7 degrees 53.0-72.0 [facility] HospitalVifbyxwLBBJQTZROA2051-84-57 05:21:00 Test Item Value Reference Range Interpretation Comments Max Amp (test code = Max Amp) 67.8 mm 50.0-70.0 [facility] HospitalRfpsgylCQNAOLPTKD4354-08-03 05:21:00 Test Item Value Reference Range Interpretation Comments R-time (test code = R-time) 3.2 min 5.0-10.0 [facility] HospitalUyhtqhlJXGSLQHIGV7583-16-23 05:21:00 Test Item Value Reference Range Interpretation Comments TEG Data (test code = See Note (06/27/18 12:21 TEG Data) AM) [facility] HospitalGalcemaQAGCUNSPVI1758-32-24 05:21:00 Test Item Value Reference Range Interpretation Comments INR (test code = INR) 1.05 1 0.85-1.17 [facility] HospitalCpfdefbKHBBXIXUOF0475-20-77 05:21:00 Test Item Value Reference Range Interpretation Comments PT (test code = PT) 13.5 s 12.0-14.7 [facility] HospitalSucddvgBYQITAIAWB9535-62-82 05:21:00 Test Item Value Reference Range Interpretation Comments PTT (test code = PTT) 33.5 s 22.9-35.8 [facility] HospitalAmurudaBLIDFZFIHW8129-84-79 05:21:00 Test Item Value Reference Range Interpretation Comments MCH (test code = MCH) 30.3 pg 27.0-31.0 [facility] HospitalGwpqftuFBODFQTSWV8027-30-10 05:21:00 Test Item Value Reference Range Interpretation Comments MCV (test code = MCV) 90.2 80.0-94.0 [facility] HospitalQocimakNJSLWCFEUS6638-83-94 05:21:00 Test Item Value Reference Range Interpretation Comments MPV (test code = MPV) 7.7 7.4-10.4 [facility] HospitalMtdznppCLBSGATGMY6246-86-93 05:21:00 Test Item Value Reference Range Interpretation Comments Platelet (test code = Platelet) 190 133-450 [facility] HospitalIbgpnwuRDUGBDIUFO1287-15-94 05:21:00 Test Item Value Reference Range Interpretation Comments MCHC (test code = MCHC) 33.5 32.0-36.0 [facility] HospitalNysyvzgNTBOPXKHJE6404-94-50 05:21:00 Test Item Value Reference Range Interpretation Comments RDW (test code = RDW) 16.1 11.5-14.5 [facility] HospitalBewucctKZDISWISZP3221-56-25 05:21:00 Test Item Value Reference Range Interpretation Comments WBC (test code = WBC) 6.3 3.7-10.4 [facility] HospitalLxcrgroRZVLDPQRPO5594-20-55 05:21:00 Test Item Value Reference Range Interpretation Comments Hgb (test code = Hgb) 13.3 14.0-18.0 [facility] HospitalRqylraxDDPVBKEWDQ9324-00-47 05:21:00 Test Item Value Reference Range Interpretation Comments Hct (test code = Hct) 39.6 42.0-54.0 [facility] HospitalEzdntfdXGTRTYUZZF6171-46-30 05:21:00 Test Item Value Reference Range Interpretation Comments RBC (test code = RBC) 4.39 4.70-6.10 [facility]PARATHY[facility]ID RDCDHND6007-83-15 05:21:00 Test Item Value Reference Range Interpretation Comments Ca Norm WB (test code = Ca Norm WB) 1.12 1.05-1.25 [facility]ATHY[facility]ID PQFGPWK3850-48-93 05:21:00 Test Item Value Reference Range Interpretation Comments Ca Ion WB (test code = Ca Ion WB) 1.15 1.05-1.25 [facility]2019-03-20 05:21:00 Test Item Value Reference Range Interpretation Comments eGFR (test code = eGFR) 35 [facility]2019-03-20 05:21:00 Test Item Value Reference Range Interpretation Comments Calcium Lvl (test code = Calcium Lvl) 8.7 8.5-10.5 [facility]2019-03-20 05:21:00 Test Item Value Reference Range Interpretation Comments CO2 (test code = CO2) 24 24-32 [facility]2019-03-20 05:21:00 Test Item Value Reference Range Interpretation Comments Sodium Lvl (test code = Sodium Lvl) 144 135-145 [facility]2019-03-20 05:21:00 Test Item Value Reference Range Interpretation Comments Creatinine Lvl (test code = Creatinine 1.85 0.50-1.40 Lvl) [facility]2019-03-20 05:21:00 Test Item Value Reference Range Interpretation Comments Potassium Lvl (test code = Potassium 4.0 3.5-5.1 Lvl) [facility]2019-03-20 05:21:00 Test Item Value Reference Range Interpretation Comments Chloride Lvl (test code = Chloride Lvl) 113 95-109 [facility]2019-03-20 05:21:00 Test Item Value Reference Range Interpretation Comments BUN (test code = BUN) 25 7-22 [facility]2019-03-20 05:21:00 Test Item Value Reference Range Interpretation Comments Glucose Lvl (test code = Glucose Lvl) 88 70-99 [facility]2019-03-20 05:21:00 Test Item Value Reference Range Interpretation Comments AGAP (test code = AGAP) 11.0 10.0-20.0 [facility]2019-03-20 05:21:00 Test Item Value Reference Range Interpretation Comments Phosphorus (test code = Phosphorus) 3.3 2.5-4.5 [facility]2019-03-20 05:21:00 Test Item Value Reference Range Interpretation Comments Magnesium Lvl (test code = Magnesium 2.0 1.8-2.4 Lvl) [facility] HospitalPhuocicQPJNVGAPSN7479-31-17 05:21:00 Test Item Value Reference Range Interpretation Comments Basophils # (test code 0.1 See_Comment [Aut omated message] The = Basophils #) system which generated this result tra nsmitted reference range : <=0.2. The reference r efren was not used to int erpret this result as normal/abnormal . [facility] HospitalQgtacqwMLJIBEDHBM0751-59-98 05:21:00 Test Item Value Reference Range Interpretation Comments Eosinophils # (test code 0.1 See_Comment [A utomated message] The = Eosinophils #) system whic h generated this result tra nsmitted reference range : <=0.5. The reference r efren was not used to int erpret this result as normal/abnormal . [facility] HospitalIppjrfeKUZTMYULOB5402-00-64 05:21:00 Test Item Value Reference Range Interpretation Comments Plt Morph (test code = Normal (06/27/18 12:21 Plt Morph) AM) [facility] HospitalWmomwffKMGVTHWAEL0564-00-31 05:21:00 Test Item Value Reference Range Interpretation Comments Segs (test code = Segs) 64.6 45.0-75.0 [facility] HospitalEvxtknhXKKBXJDDGK8906-19-88 05:21:00 Test Item Value Reference Range Interpretation Comments Lymphocytes (test code = Lymphocytes) 25.7 20.0-40.0 [facility] HospitalTpecunnYMQASWEHHO8553-77-46 05:21:00 Test Item Value Reference Range Interpretation Comments Eosinophils (test code = 2.0 See_Comment [A utomated message] The Eosinophils) system which ge nerated this result tra nsmitted reference range : <=4.0. The reference r efren was not used to int erpret this result as normal/abnormal . [facility] HospitalMtiaxycLOJZNVAEUQ2691-17-89 05:21:00 Test Item Value Reference Range Interpretation Comments Monocytes (test code = Monocytes) 6.8 2.0-12.0 [facility] HospitalVmetlyjZVVCAJPESX6311-17-74 05:21:00 Test Item Value Reference Range Interpretation Comments Neutrophils # (test code = Neutrophils 4.1 1.5-8.1 #) [facility] HospitalTqebashIUXLYFBBNG6266-01-99 05:21:00 Test Item Value Reference Range Interpretation Comments Basophils (test code = 0.9 See_Comment [Aut omated message] The Basophils) system which ge nerated this result tra nsmitted reference range : <=1.0. The reference r efren was not used to int erpret this result as normal/abnormal . [facility] HospitalVbppsrdTVXJWWOHBA1865-68-09 05:21:00 Test Item Value Reference Range Interpretation Comments Monocytes # (test code 0.4 See_Comment [Aut omated message] The = Monocytes #) system which generated this result tra nsmitted reference range : <=0.8. The reference r efren was not used to int erpret this result as normal/abnormal . [facility] HospitalGsmhxnhUNMOLVJSZH3178-88-23 05:21:00 Test Item Value Reference Range Interpretation Comments Lymphocytes # (test code = Lymphocytes 1.6 1.0-5.5 #) [facility] HospitalLikophwLZVQILWAQH5005-75-24 05:21:00 Test Item Value Reference Range Interpretation Comments RBC Morph (test code = Normal (06/27/18 12:21 RBC Morph) AM) [facility] HospitalVfsywtiNOTBNQLZSH9586-26-70 05:21:00 Test Item Value Reference Range Interpretation Comments TEG Interp (test Thrombelastograph results code = TEG show shortened value of R. Interp) This finding is suggestive of enzymatic hypercoagulation. CPT:18714 [facility] HospitalXqwnsorCOICUGPPQD9749-29-32 05:21:00 Test Item Value Reference Range Interpretation Comments Ly30 (test code = 0.0 See_Comment [Automate d message] The Ly30) system which ge nerated this result transmit emory reference range : <=7.5. The reference range was not used to interpr et this result as dori l/abnormal. [facility] HospitalDvltnbhCBRZJYNASY0266-90-66 05:21:00 Test Item Value Reference Range Interpretation Comments G-value (test code = G-value) 10.5 4.5-11.0 [facility] HospitalYjpznfjJBWVKNNMIA9372-95-72 05:21:00 Test Item Value Reference Range Interpretation Comments Coag Index (test code 3.2 1 See_Comment [Auto mated message] The = Coag Index) system which g enerated this result transmit emory reference range : <=3.0. The reference range was not used to interpr et this result as dori l/abnormal. [facility] HospitalArnzwgnTBSEXWKJIE3456-73-61 05:21:00 Test Item Value Reference Range Interpretation Comments K-time (test code = K-time) 1.4 min 1.0-3.0 [facility] HospitalYwyjfriYIWWDDRSVR6475-88-59 05:21:00 Test Item Value Reference Range Interpretation Comments Angle (test code = Angle) 70.7 degrees 53.0-72.0 [facility] HospitalLykpiofMVSVPTHTTG5123-92-26 05:21:00 Test Item Value Reference Range Interpretation Comments Max Amp (test code = Max Amp) 67.8 mm 50.0-70.0 [facility] HospitalGjxzaznETZGXQXLQW5616-65-91 05:21:00 Test Item Value Reference Range Interpretation Comments R-time (test code = R-time) 3.2 min 5.0-10.0 [facility] HospitalLvpeyfrRBBFOGPGCJ4252-03-22 05:21:00 Test Item Value Reference Range Interpretation Comments TEG Data (test code = See Note (06/27/18 12:21 TEG Data) AM) [facility] HospitalMfkvwyqXFECUVYPSM9257-22-83 05:21:00 Test Item Value Reference Range Interpretation Comments INR (test code = INR) 1.05 1 0.85-1.17 [facility] HospitalEgliarsCQJQRSZTKE0623-66-70 05:21:00 Test Item Value Reference Range Interpretation Comments PT (test code = PT) 13.5 s 12.0-14.7 [facility] HospitalXtqvudiNWENVQDNID3068-01-66 05:21:00 Test Item Value Reference Range Interpretation Comments PTT (test code = PTT) 33.5 s 22.9-35.8 [facility] HospitalDejjjjmPMOCQFUJRX3173-03-76 05:21:00 Test Item Value Reference Range Interpretation Comments MCH (test code = MCH) 30.3 pg 27.0-31.0 [facility] HospitalMtloghtDZAOJCPMYN0191-58-84 05:21:00 Test Item Value Reference Range Interpretation Comments MCV (test code = MCV) 90.2 80.0-94.0 [facility] HospitalAanqyyoVUNXOXEYBU1645-35-25 05:21:00 Test Item Value Reference Range Interpretation Comments MPV (test code = MPV) 7.7 7.4-10.4 [facility] HospitalGukjciyNRAUQQMOWK0610-24-76 05:21:00 Test Item Value Reference Range Interpretation Comments Platelet (test code = Platelet) 190 133-450 [facility] HospitalZhdnjykKMELXFZDTC8468-72-82 05:21:00 Test Item Value Reference Range Interpretation Comments MCHC (test code = MCHC) 33.5 32.0-36.0 [facility] HospitalKulcsbvCZGXGYDLZB3525-83-99 05:21:00 Test Item Value Reference Range Interpretation Comments RDW (test code = RDW) 16.1 11.5-14.5 [facility] HospitalJrxanfaWXTPPNMVIO1607-49-65 05:21:00 Test Item Value Reference Range Interpretation Comments WBC (test code = WBC) 6.3 3.7-10.4 [facility] HospitalPomamyoHXMXKFFUGU0176-11-27 05:21:00 Test Item Value Reference Range Interpretation Comments Hgb (test code = Hgb) 13.3 14.0-18.0 [facility] HospitalFvufdqaKPGSDSTVTE2718-07-34 05:21:00 Test Item Value Reference Range Interpretation Comments Hct (test code = Hct) 39.6 42.0-54.0 [facility]winGygluzrSPOZXCTRGZ7814-57-30 05:21:00 Test Item Value Reference Range Interpretation Comments RBC (test code = RBC) 4.39 4.70-6.10 [facility]2019-03-20 05:21:00 Test Item Value Reference Range Interpretation Comments Ca Norm WB (test code = Ca Norm WB) 1.12 1.05-1.25 [facility]2019-03-20 05:21:00 Test Item Value Reference Range Interpretation Comments Ca Ion WB (test code = Ca Ion WB) 1.15 1.05-1.25 [facility]2019-03-20 05:21:00 Test Item Value Reference Range Interpretation Comments eGFR (test code = eGFR) 35 [facility]2019-03-20 05:21:00 Test Item Value Reference Range Interpretation Comments Calcium Lvl (test code = Calcium Lvl) 8.7 8.5-10.5 [facility]2019-03-20 05:21:00 Test Item Value Reference Range Interpretation Comments CO2 (test code = CO2) 24 24-32 [facility]2019-03-20 05:21:00 Test Item Value Reference Range Interpretation Comments Sodium Lvl (test code = Sodium Lvl) 144 135-145 [facility]2019-03-20 05:21:00 Test Item Value Reference Range Interpretation Comments Creatinine Lvl (test code = Creatinine 1.85 0.50-1.40 Lvl) [facility]2019-03-20 05:21:00 Test Item Value Reference Range Interpretation Comments Potassium Lvl (test code = Potassium 4.0 3.5-5.1 Lvl) [facility]2019-03-20 05:21:00 Test Item Value Reference Range Interpretation Comments Chloride Lvl (test code = Chloride Lvl) 113 95-109 [facility]2019-03-20 05:21:00 Test Item Value Reference Range Interpretation Comments BUN (test code = BUN) 25 7-22 [facility]2019-03-20 05:21:00 Test Item Value Reference Range Interpretation Comments Glucose Lvl (test code = Glucose Lvl) 88 70-99 [facility]2019-03-20 05:21:00 Test Item Value Reference Range Interpretation Comments AGAP (test code = AGAP) 11.0 10.0-20.0 [facility]2019-03-20 05:21:00 Test Item Value Reference Range Interpretation Comments Phosphorus (test code = Phosphorus) 3.3 2.5-4.5 [facility]2019-03-20 05:21:00 Test Item Value Reference Range Interpretation Comments Magnesium Lvl (test code = Magnesium 2.0 1.8-2.4 Lvl) [facility] HospitalGfygsifQOEZCTBZJU5243-36-03 05:21:00 Test Item Value Reference Range Interpretation Comments Basophils # (test code 0.1 See_Comment [Aut omated message] The = Basophils #) system which generated this result tra nsmitted reference range : <=0.2. The reference r efren was not used to int erpret this result as normal/abnormal . [facility] HospitalVvmdrtgIFIQQTAPEV5199-96-04 05:21:00 Test Item Value Reference Range Interpretation Comments Eosinophils # (test code 0.1 See_Comment [A utomated message] The = Eosinophils #) system whic h generated this result tra nsmitted reference range : <=0.5. The reference r efren was not used to int erpret this result as normal/abnormal . [facility] HospitalYooenzyNNCMVJQKTR4026-09-89 05:21:00 Test Item Value Reference Range Interpretation Comments Plt Morph (test code = Normal (06/27/18 12:21 Plt Morph) AM) [facility] HospitalOltduhhTMRSHUOPXE7994-97-55 05:21:00 Test Item Value Reference Range Interpretation Comments Segs (test code = Segs) 64.6 45.0-75.0 [facility] HospitalLuqplbcJQPAUACUXK8691-13-50 05:21:00 Test Item Value Reference Range Interpretation Comments Lymphocytes (test code = Lymphocytes) 25.7 20.0-40.0 [facility] HospitalEbrcsmnHRGPAOCCQR6876-35-51 05:21:00 Test Item Value Reference Range Interpretation Comments Eosinophils (test code = 2.0 See_Comment [A utomated message] The Eosinophils) system which ge nerated this result tra nsmitted reference range : <=4.0. The reference r efren was not used to int erpret this result as normal/abnormal . [facility] HospitalQyeftdaSCDTRHPKYW6040-92-31 05:21:00 Test Item Value Reference Range Interpretation Comments Monocytes (test code = Monocytes) 6.8 2.0-12.0 [facility] HospitalAivpyegVNPKBIJEMX0116-55-26 05:21:00 Test Item Value Reference Range Interpretation Comments Neutrophils # (test code = Neutrophils 4.1 1.5-8.1 #) [facility] HospitalZrcmjdnCVMXCHCPXS3420-05-12 05:21:00 Test Item Value Reference Range Interpretation Comments Basophils (test code = 0.9 See_Comment [Aut omated message] The Basophils) system which ge nerated this result tra nsmitted reference range : <=1.0. The reference r efren was not used to int erpret this result as normal/abnormal . [facility] HospitalVjxnwelYJKSQHOPCO3332-60-37 05:21:00 Test Item Value Reference Range Interpretation Comments Monocytes # (test code 0.4 See_Comment [Aut omated message] The = Monocytes #) system which generated this result tra nsmitted reference range : <=0.8. The reference r efren was not used to int erpret this result as normal/abnormal . [facility] HospitalGcgrtopQMOWPDTBPT5611-38-88 05:21:00 Test Item Value Reference Range Interpretation Comments Lymphocytes # (test code = Lymphocytes 1.6 1.0-5.5 #) [facility] [facility]AG4730-98-75 05:21:00 Test Item Value Reference Range Interpretation Comments RBC Morph (test code = Normal (06/27/18 12:21 RBC Morph) AM) [facility] HospitalBpxzegvGIVPDMXJZJ3119-45-51 05:21:00 Test Item Value Reference Range Interpretation Comments TEG Interp (test Thrombelastograph results code = TEG show shortened value of R. Interp) This finding is suggestive of enzymatic hypercoagulation. CPT:72367 [facility] HospitalUavtccbACINERDLZY3068-31-59 05:21:00 Test Item Value Reference Range Interpretation Comments Ly30 (test code = 0.0 See_Comment [Automate d message] The Ly30) system which ge nerated this result transmit emory reference range : <=7.5. The reference range was not used to interpr et this result as dori l/abnormal. [facility] HospitalGytgdwoWNHEYZJWAB3820-42-55 05:21:00 Test Item Value Reference Range Interpretation Comments G-value (test code = G-value) 10.5 4.5-11.0 [facility] HospitalQdzbhyqCQVLDVTBCT5714-58-06 05:21:00 Test Item Value Reference Range Interpretation Comments Coag Index (test code 3.2 1 See_Comment [Auto mated message] The = Coag Index) system which g enerated this result transmit emory reference range : <=3.0. The reference range was not used to interpr et this result as dori l/abnormal. [facility] HospitalUsblvndLOYZJIBNTT5416-73-35 05:21:00 Test Item Value Reference Range Interpretation Comments K-time (test code = K-time) 1.4 min 1.0-3.0 [facility] HospitalLhlmpcsQNOJSOYNSQ8022-16-39 05:21:00 Test Item Value Reference Range Interpretation Comments Angle (test code = Angle) 70.7 degrees 53.0-72.0 [facility] HospitalXvkrqhpZSJLMUNHLY5458-50-01 05:21:00 Test Item Value Reference Range Interpretation Comments Max Amp (test code = Max Amp) 67.8 mm 50.0-70.0 [facility] HospitalXuipqmaWJLOTXSGVN3406-17-74 05:21:00 Test Item Value Reference Range Interpretation Comments R-time (test code = R-time) 3.2 min 5.0-10.0 [facility] HospitalDrmaypvLFFUSIVTQD7219-44-88 05:21:00 Test Item Value Reference Range Interpretation Comments TEG Data (test code = See Note (06/27/18 12:21 TEG Data) AM) [facility] HospitalJvunjsnINEHKHIXQK4268-61-71 05:21:00 Test Item Value Reference Range Interpretation Comments INR (test code = INR) 1.05 1 0.85-1.17 [facility] HospitalXhiisfaPPHCLAQQVI0766-54-40 05:21:00 Test Item Value Reference Range Interpretation Comments PT (test code = PT) 13.5 s 12.0-14.7 [facility] HospitalXlcjsipQAEFUIETNU7431-59-09 05:21:00 Test Item Value Reference Range Interpretation Comments PTT (test code = PTT) 33.5 s 22.9-35.8 [facility] HospitalEdrugusYYQKMIHBUS0454-79-99 05:21:00 Test Item Value Reference Range Interpretation Comments MCH (test code = MCH) 30.3 pg 27.0-31.0 [facility] HospitalVwpvxxlKNBHNXCPNM0985-07-31 05:21:00 Test Item Value Reference Range Interpretation Comments MCV (test code = MCV) 90.2 80.0-94.0 [facility] HospitalHtacrmuXYVGBSEKGL0590-08-79 05:21:00 Test Item Value Reference Range Interpretation Comments MPV (test code = MPV) 7.7 7.4-10.4 [facility] HospitalGpsqvmgHPSXCUUETO2488-29-37 05:21:00 Test Item Value Reference Range Interpretation Comments Platelet (test code = Platelet) 190 133-450 [facility] HospitalDwvnryoLEEIKPYDBW1728-13-37 05:21:00 Test Item Value Reference Range Interpretation Comments MCHC (test code = MCHC) 33.5 32.0-36.0 [facility] HospitalCtlflqfLZUXOFWPSU5708-66-40 05:21:00 Test Item Value Reference Range Interpretation Comments RDW (test code = RDW) 16.1 11.5-14.5 [facility] HospitalQdpixctDPIAKRPLTJ6745-74-80 05:21:00 Test Item Value Reference Range Interpretation Comments WBC (test code = WBC) 6.3 3.7-10.4 [facility] HospitalJqobjclOVTUQZLYUO6678-20-10 05:21:00 Test Item Value Reference Range Interpretation Comments Hgb (test code = Hgb) 13.3 14.0-18.0 [facility] HospitalPoxvtkwACPIHNHXFQ6734-72-31 05:21:00 Test Item Value Reference Range Interpretation Comments Hct (test code = Hct) 39.6 42.0-54.0 [facility] HospitalTvhyzxuASAFQUJWJL7544-56-91 05:21:00 Test Item Value Reference Range Interpretation Comments RBC (test code = RBC) 4.39 4.70-6.10 [facility]PAR[facility] UYUCQOR2080-80-19 05:21:00 Test Item Value Reference Range Interpretation Comments Ca Norm WB (test code = Ca Norm WB) 1.12 1.05-1.25 [facility] CenterPARATHYROID EJZJXMP4685-83-24 05:21:00 Test Item Value Reference Range Interpretation Comments Ca Ion WB (test code = Ca Ion WB) 1.15 1.05-1.25 [facility] CenterCHEM YNJXU5030-04-88 05:21:00 Test Item Value Reference Range Interpretation Comments eGFR (test code = eGFR) 35 [facility] OVYJQ7795-75-59 05:21:00 Test Item Value Reference Range Interpretation Comments Calcium Lvl (test code = Calcium Lvl) 8.7 8.5-10.5 [facility]2019-03-20 05:21:00 Test Item Value Reference Range Interpretation Comments CO2 (test code = CO2) [facility]2019-03-20 05:21:00 Test Item Value Reference Range Interpretation Comments Sodium Lvl (test code = Sodium Lvl) 144 135-145 [facility]2019-03-20 05:21:00 Test Item Value Reference Range Interpretation Comments Creatinine Lvl (test code = Creatinine 1.85 0.50-1.40 Lvl) [facility]2019-03-20 05:21:00 Test Item Value Reference Range Interpretation Comments Potassium Lvl (test code = Potassium 4.0 3.5-5.1 Lvl) [facility]2019-03-20 05:21:00 Test Item Value Reference Range Interpretation Comments Chloride Lvl (test code = Chloride Lvl) 113 95-109 [facility]2019-03-20 05:21:00 Test Item Value Reference Range Interpretation Comments BUN (test code = BUN) 01 11- [facility]2019-03-20 05:21:00 Test Item Value Reference Range Interpretation Comments Glucose Lvl (test code = Glucose Lvl) 88 70-99 [facility]2019-03-20 05:21:00 Test Item Value Reference Range Interpretation Comments AGAP (test code = AGAP) 11.0 10.0-20.0 [facility]2019-03-20 05:21:00 Test Item Value Reference Range Interpretation Comments eGFR (test code = eGFR) 35 [facility]2019-03-20 05:21:00 Test Item Value Reference Range Interpretation Comments Calcium Lvl (test code = Calcium Lvl) 8.7 8.5-10.5 [facility]2019-03-20 05:21:00 Test Item Value Reference Range Interpretation Comments CO2 (test code = CO2) 24 [facility]2019-03-20 05:21:00 Test Item Value Reference Range Interpretation Comments Sodium Lvl (test code = Sodium Lvl) 144 135-145 [facility]2019-03-20 05:21:00 Test Item Value Reference Range Interpretation Comments Creatinine Lvl (test code = Creatinine 1.85 0.50-1.40 Lvl) [facility]2019-03-20 05:21:00 Test Item Value Reference Range Interpretation Comments Potassium Lvl (test code = Potassium 4.0 3.5-5.1 Lvl) [facility]2019-03-20 05:21:00 Test Item Value Reference Range Interpretation Comments Chloride Lvl (test code = Chloride Lvl) 113 95-109 [facility]2019-03-20 05:21:00 Test Item Value Reference Range Interpretation Comments BUN (test code = BUN) 25 7-22 [facility]2019-03-20 05:21:00 Test Item Value Reference Range Interpretation Comments Glucose Lvl (test code = Glucose Lvl) 88 70-99 [facility]2019-03-20 05:21:00 Test Item Value Reference Range Interpretation Comments Phosphorus (test code = Phosphorus) 3.3 2.5-4.5 [facility]2019-03-20 05:21:00 Test Item Value Reference Range Interpretation Comments AGAP (test code = AGAP) 11.0 10.0-20.0 [facility]2019-03-20 05:21:00 Test Item Value Reference Range Interpretation Comments Phosphorus (test code = Phosphorus) 3.3 2.5-4.5 [facility]2019-03-20 05:21:00 Test Item Value Reference Range Interpretation Comments Magnesium Lvl (test code = Magnesium 2.0 1.8-2.4 Lvl) [facility] HospitalFqbneuiLJYYWZRYYT7623-80-62 05:21:00 Test Item Value Reference Range Interpretation Comments Basophils # (test code 0.1 See_Comment [Aut omated message] The = Basophils #) system which generated this result tra nsmitted reference range : <=0.2. The reference r efren was not used to int erpret this result as normal/abnormal . [facility] HospitalWjkboqtUWTRHXMSUE4376-02-14 05:21:00 Test Item Value Reference Range Interpretation Comments Eosinophils # (test code 0.1 See_Comment [A utomated message] The = Eosinophils #) system whic h generated this result tra nsmitted reference range : <=0.5. The reference r efren was not used to int erpret this result as normal/abnormal . [facility] HospitalPraiblrOVZTGRWZQY5410-56-67 05:21:00 Test Item Value Reference Range Interpretation Comments Plt Morph (test code = Normal (06/27/18 12:21 Plt Morph) AM) [facility] HospitalRdlqjcjUYFAZJSZHH7936-61-44 05:21:00 Test Item Value Reference Range Interpretation Comments Segs (test code = Segs) 64.6 45.0-75.0 [facility] HospitalUfsurxxUKDCQGEGFZ4782-90-78 05:21:00 Test Item Value Reference Range Interpretation Comments Lymphocytes (test code = Lymphocytes) 25.7 20.0-40.0 [facility] HospitalVorkiyfOYTFCYCTHL9923-77-49 05:21:00 Test Item Value Reference Range Interpretation Comments Eosinophils (test code = 2.0 See_Comment [A utomated message] The Eosinophils) system which ge nerated this result tra nsmitted reference range : <=4.0. The reference r efren was not used to int erpret this result as normal/abnormal . [facility] HospitalNbanrqaQDYKGQCIBO3085-06-72 05:21:00 Test Item Value Reference Range Interpretation Comments Monocytes (test code = Monocytes) 6.8 2.0-12.0 [facility]2019-03-20 05:21:00 Test Item Value Reference Range Interpretation Comments Magnesium Lvl (test code = Magnesium 2.0 1.8-2.4 Lvl) [facility] HospitalYnwvvrpOTXPLKDBBT0234-67-78 05:21:00 Test Item Value Reference Range Interpretation Comments Neutrophils # (test code = Neutrophils 4.1 1.5-8.1 #) [facility] HospitalQlbrxwpYKRNKBVRKA2588-04-95 05:21:00 Test Item Value Reference Range Interpretation Comments Basophils (test code = 0.9 See_Comment [Aut omated message] The Basophils) system which ge nerated this result tra nsmitted reference range : <=1.0. The reference r efren was not used to int erpret this result as normal/abnormal . [facility] HospitalWytkyqfJFTLWJIRUS8569-05-20 05:21:00 Test Item Value Reference Range Interpretation Comments Monocytes # (test code 0.4 See_Comment [Aut omated message] The = Monocytes #) system which generated this result tra nsmitted reference range : <=0.8. The reference r efren was not used to int erpret this result as normal/abnormal . [facility] HospitalWsiabhxYXEKWUTLAH1791-98-51 05:21:00 Test Item Value Reference Range Interpretation Comments Lymphocytes # (test code = Lymphocytes 1.6 1.0-5.5 #) [facility] HospitalEgxqpmsKAAHEWJUNA6842-24-00 05:21:00 Test Item Value Reference Range Interpretation Comments RBC Morph (test code = Normal (06/27/18 12:21 RBC Morph) AM) [facility] HospitalAeqayswJCIARTDCMR7720-83-33 05:21:00 Test Item Value Reference Range Interpretation Comments TEG Interp (test Thrombelastograph results code = TEG show shortened value of R. Interp) This finding is suggestive of enzymatic hypercoagulation. CPT:52849 [facility] HospitalCjrsjblWFRYZJOCLT4248-20-43 05:21:00 Test Item Value Reference Range Interpretation Comments Ly30 (test code = 0.0 See_Comment [Automate d message] The Ly30) system which ge nerated this result transmit emory reference range : <=7.5. The reference range was not used to interpr et this result as dori l/abnormal. [facility] HospitalXmhekntDXLGLOYUUA5227-23-78 05:21:00 Test Item Value Reference Range Interpretation Comments G-value (test code = G-value) 10.5 4.5-11.0 [facility] HospitalKxdzzupGHCTMOSIYC8248-49-27 05:21:00 Test Item Value Reference Range Interpretation Comments Coag Index (test code 3.2 1 See_Comment [Auto mated message] The = Coag Index) system which g enerated this result transmit emory reference range : <=3.0. The reference range was not used to interpr et this result as dori l/abnormal. [facility] HospitalRgwkorbSRQFEHXRLP8155-22-33 05:21:00 Test Item Value Reference Range Interpretation Comments K-time (test code = K-time) 1.4 min 1.0-3.0 [facility] HospitalYjvmwrfCZRDGGSZKY6692-62-99 05:21:00 Test Item Value Reference Range Interpretation Comments Basophils # (test code 0.1 See_Comment [Aut omated message] The = Basophils #) system which generated this result tra nsmitted reference range : <=0.2. The reference r efren was not used to int erpret this result as normal/abnormal . [facility] HospitalZodonkuAVFZNYIQSH8517-78-33 05:21:00 Test Item Value Reference Range Interpretation Comments Angle (test code = Angle) 70.7 degrees 53.0-72.0 [facility] HospitalNyunetrKWZZFVGYAA8854-39-72 05:21:00 Test Item Value Reference Range Interpretation Comments Max Amp (test code = Max Amp) 67.8 mm 50.0-70.0 [facility] HospitalUliariqPGFEOXEYTC4335-39-52 05:21:00 Test Item Value Reference Range Interpretation Comments R-time (test code = R-time) 3.2 min 5.0-10.0 [facility] HospitalMkpwgzaYIJDVKLJQO4495-77-97 05:21:00 Test Item Value Reference Range Interpretation Comments TEG Data (test code = See Note (06/27/18 12:21 TEG Data) AM) [facility] HospitalLybdzygVLNDNAMNPA3893-96-37 05:21:00 Test Item Value Reference Range Interpretation Comments INR (test code = INR) 1.05 1 0.85-1.17 [facility] HospitalAzhrfoaICDOMWKMYS9595-53-59 05:21:00 Test Item Value Reference Range Interpretation Comments PT (test code = PT) 13.5 s 12.0-14.7 [facility] HospitalMuggrfzXVWRQBTGID8050-75-03 05:21:00 Test Item Value Reference Range Interpretation Comments PTT (test code = PTT) 33.5 s 22.9-35.8 [facility] HospitalYhvawfzBHZZTQSJNO8192-54-23 05:21:00 Test Item Value Reference Range Interpretation Comments MCH (test code = MCH) 30.3 pg 27.0-31.0 [facility] HospitalOdpgbikZWOYKOOJWH1456-56-46 05:21:00 Test Item Value Reference Range Interpretation Comments MCV (test code = MCV) 90.2 80.0-94.0 [facility] HospitalNirfjugUPXIGLRMMB4341-75-17 05:21:00 Test Item Value Reference Range Interpretation Comments MPV (test code = MPV) 7.7 7.4-10.4 [facility] HospitalEigfkczMBEVECFPBU1550-38-86 05:21:00 Test Item Value Reference Range Interpretation Comments Eosinophils # (test code 0.1 See_Comment [A utomated message] The = Eosinophils #) system whic h generated this result tra nsmitted reference range : <=0.5. The reference r efren was not used to int erpret this result as normal/abnormal . [facility] HospitalPdhrwhgUENNCGNIGW5950-02-06 05:21:00 Test Item Value Reference Range Interpretation Comments Platelet (test code = Platelet) 190 133-450 [facility] HospitalLlkjoukHSVXYKEEZH7062-06-17 05:21:00 Test Item Value Reference Range Interpretation Comments MCHC (test code = MCHC) 33.5 32.0-36.0 [facility] HospitalHvwefheDKJAXWNPHK2851-52-87 05:21:00 Test Item Value Reference Range Interpretation Comments RDW (test code = RDW) 16.1 11.5-14.5 [facility] HospitalHsylydlGOKMASYJCK9062-46-86 05:21:00 Test Item Value Reference Range Interpretation Comments WBC (test code = WBC) 6.3 3.7-10.4 [facility] HospitalFreifbfOIZXJYFIUF4435-48-27 05:21:00 Test Item Value Reference Range Interpretation Comments Hgb (test code = Hgb) 13.3 14.0-18.0 [facility] HospitalQkqfzbrBUPRJQFONE1682-04-63 05:21:00 Test Item Value Reference Range Interpretation Comments Hct (test code = Hct) 39.6 42.0-54.0 [facility] HospitalXzwxovgGAKIEKRVQU3618-20-88 05:21:00 Test Item Value Reference Range Interpretation Comments RBC (test code = RBC) 4.39 4.70-6.10 [facility]PARATHYROID EYARHHN8732-07-47 05:21:00 Test Item Value Reference Range Interpretation Comments Ca Norm WB (test code = Ca Norm WB) 1.12 1.05-1.25 [facility]ATHY[facility] GSRLWJE8997-27-28 05:21:00 Test Item Value Reference Range Interpretation Comments Ca Ion WB (test code = Ca Ion WB) 1.15 1.05-1.25 [facility] HospitalLczgebnPNKOXTMPKT7008-13-22 05:21:00 Test Item Value Reference Range Interpretation Comments Plt Morph (test code = Normal (06/27/18 12:21 Plt Morph) AM) [facility] HospitalPmmwnngIMRFNWOMPA3073-89-03 05:21:00 Test Item Value Reference Range Interpretation Comments Segs (test code = Segs) 64.6 45.0-75.0 [facility] HospitalIhpmpiiXCNZPLSXJW3463-95-63 05:21:00 Test Item Value Reference Range Interpretation Comments Lymphocytes (test code = Lymphocytes) 25.7 20.0-40.0 [facility] HospitalEjqdqgqOVBETCSAMK9519-14-52 05:21:00 Test Item Value Reference Range Interpretation Comments Eosinophils (test code = 2.0 See_Comment [A utomated message] The Eosinophils) system which ge nerated this result tra nsmitted reference range : <=4.0. The reference r efren was not used to int erpret this result as normal/abnormal . [facility] HospitalHiuwqitOBKOYPXFSS9525-94-46 05:21:00 Test Item Value Reference Range Interpretation Comments Monocytes (test code = Monocytes) 6.8 2.0-12.0 [facility] HospitalLqylfesWIVOXRVIJV5062-46-58 05:21:00 Test Item Value Reference Range Interpretation Comments Neutrophils # (test code = Neutrophils 4.1 1.5-8.1 #) [facility] HospitalZzkzoqkLEORJOUNKK5674-35-97 05:21:00 Test Item Value Reference Range Interpretation Comments Basophils (test code = 0.9 See_Comment [Aut omated message] The Basophils) system which ge nerated this result tra nsmitted reference range : <=1.0. The reference r efren was not used to int erpret this result as normal/abnormal . [facility] HospitalWqhctnqFOIWQHVUGQ5724-87-76 05:21:00 Test Item Value Reference Range Interpretation Comments Monocytes # (test code 0.4 See_Comment [Aut omated message] The = Monocytes #) system which generated this result tra nsmitted reference range : <=0.8. The reference r efren was not used to int erpret this result as normal/abnormal . [facility] HospitalXnhsgwgTEGVYKJELC0482-60-91 05:21:00 Test Item Value Reference Range Interpretation Comments Lymphocytes # (test code = Lymphocytes 1.6 1.0-5.5 #) [facility] HospitalYcwlxwjINFVIOJXXP0654-37-70 05:21:00 Test Item Value Reference Range Interpretation Comments RBC Morph (test code = Normal (06/27/18 12:21 RBC Morph) AM) [facility] HospitalDkgokekJXMYFNLGKQ2723-59-17 05:21:00 Test Item Value Reference Range Interpretation Comments TEG Interp (test Thrombelastograph results code = TEG show shortened value of R. Interp) This finding is suggestive of enzymatic hypercoagulation. CPT:80251 [facility] HospitalWxucucmEDJZQMLQPX6223-59-97 05:21:00 Test Item Value Reference Range Interpretation Comments Ly30 (test code = 0.0 See_Comment [Automate d message] The Ly30) system which ge nerated this result transmit emory reference range : <=7.5. The reference range was not used to interpr et this result as dori l/abnormal. [facility] HospitalAxqfqocJXYNOPTKYF5276-98-98 05:21:00 Test Item Value Reference Range Interpretation Comments G-value (test code = G-value) 10.5 4.5-11.0 [facility] HospitalNfsgmgtLYKRKIKDTE5361-33-76 05:21:00 Test Item Value Reference Range Interpretation Comments Coag Index (test code 3.2 1 See_Comment [Auto mated message] The = Coag Index) system which g enerated this result transmit emory reference range : <=3.0. The reference range was not used to interpr et this result as dori l/abnormal. [facility] HospitalLenlzbqZOKNPOIGPH5568-44-48 05:21:00 Test Item Value Reference Range Interpretation Comments K-time (test code = K-time) 1.4 min 1.0-3.0 [facility] HospitalSgwpfzhLXGARZYFOE3006-07-78 05:21:00 Test Item Value Reference Range Interpretation Comments Angle (test code = Angle) 70.7 degrees 53.0-72.0 [facility] HospitalKfgnazsCGXHGRLXEA1142-16-36 05:21:00 Test Item Value Reference Range Interpretation Comments Max Amp (test code = Max Amp) 67.8 mm 50.0-70.0 [facility] HospitalPtkxtrgBDQEUSOIYZ6844-99-26 05:21:00 Test Item Value Reference Range Interpretation Comments R-time (test code = R-time) 3.2 min 5.0-10.0 [facility] HospitalHgvwgmxBKJYJEPIGP9051-57-86 05:21:00 Test Item Value Reference Range Interpretation Comments TEG Data (test code = See Note (06/27/18 12:21 TEG Data) AM) [facility] HospitalAhuwaauJIESCISLQB7424-20-99 05:21:00 Test Item Value Reference Range Interpretation Comments INR (test code = INR) 1.05 1 0.85-1.17 [facility] HospitalGzjrhelFJBVIYHFGJ7728-86-56 05:21:00 Test Item Value Reference Range Interpretation Comments PT (test code = PT) 13.5 s 12.0-14.7 [facility] HospitalOcdztfxBAVVTTHFFU2818-36-69 05:21:00 Test Item Value Reference Range Interpretation Comments PTT (test code = PTT) 33.5 s 22.9-35.8 [facility]2019-03-20 05:21:00 Test Item Value Reference Range Interpretation Comments eGFR (test code = eGFR) 35 [facility] HospitalRokpwevIBEVYHXPBG7066-37-65 05:21:00 Test Item Value Reference Range Interpretation Comments MCH (test code = MCH) 30.3 pg 27.0-31.0 [facility]2019-03-20 05:21:00 Test Item Value Reference Range Interpretation Comments Calcium Lvl (test code = Calcium Lvl) 8.7 8.5-10.5 [facility]2019-03-20 05:21:00 Test Item Value Reference Range Interpretation Comments CO2 (test code = CO2) 24 24-32 [facility]2019-03-20 05:21:00 Test Item Value Reference Range Interpretation Comments Sodium Lvl (test code = Sodium Lvl) 144 135-145 [facility]2019-03-20 05:21:00 Test Item Value Reference Range Interpretation Comments Creatinine Lvl (test code = Creatinine 1.85 0.50-1.40 Lvl) [facility]2019-03-20 05:21:00 Test Item Value Reference Range Interpretation Comments Potassium Lvl (test code = Potassium 4.0 3.5-5.1 Lvl) [facility]2019-03-20 05:21:00 Test Item Value Reference Range Interpretation Comments Chloride Lvl (test code = Chloride Lvl) 113 95-109 [facility]2019-03-20 05:21:00 Test Item Value Reference Range Interpretation Comments BUN (test code = BUN) 25 7-22 [facility]2019-03-20 05:21:00 Test Item Value Reference Range Interpretation Comments Glucose Lvl (test code = Glucose Lvl) 88 70-99 [facility]2019-03-20 05:21:00 Test Item Value Reference Range Interpretation Comments AGAP (test code = AGAP) 11.0 10.0-20.0 [facility]2019-03-20 05:21:00 Test Item Value Reference Range Interpretation Comments Phosphorus (test code = Phosphorus) 3.3 2.5-4.5 [facility] HospitalYxylixsZCSKBBKVOW8923-18-00 05:21:00 Test Item Value Reference Range Interpretation Comments MCV (test code = MCV) 90.2 80.0-94.0 [facility]2019-03-20 05:21:00 Test Item Value Reference Range Interpretation Comments Magnesium Lvl (test code = Magnesium 2.0 1.8-2.4 [address]) [facility]BzdkyhnMFTTWAFLFN1305-02-[facility] 05:21:00 Test Item Value Reference Range Interpretation Comments Basophils # (test code 0.1 See_Comment [Aut omated message] The = Basophils #) system which generated this result tra nsmitted reference range : <=0.2. The reference r efren was not used to int erpret this result as normal/abnormal . [facility] HospitalIaovuinNECYCKOZBE3762-75-77 05:21:00 Test Item Value Reference Range Interpretation Comments Eosinophils # (test code 0.1 See_Comment [A utomated message] The = Eosinophils #) system whic h generated this result tra nsmitted reference range : <=0.5. The reference r efren was not used to int erpret this result as normal/abnormal . [facility] HospitalEukajowBUQZOYSBOS8911-89-04 05:21:00 Test Item Value Reference Range Interpretation Comments Plt Morph (test code = Normal (06/27/18 12:21 Plt Morph) AM) [facility] HospitalIxhfihqIRBWHFOZGY8719-44-90 05:21:00 Test Item Value Reference Range Interpretation Comments Segs (test code = Segs) 64.6 45.0-75.0 [facility] HospitalXarmeecROOWDNILSK7439-09-37 05:21:00 Test Item Value Reference Range Interpretation Comments Lymphocytes (test code = Lymphocytes) 25.7 20.0-40.0 [facility] HospitalIfvoescVGAEITCMPT3692-60-83 05:21:00 Test Item Value Reference Range Interpretation Comments Eosinophils (test code = 2.0 See_Comment [A utomated message] The Eosinophils) system which ge nerated this result tra nsmitted reference range : <=4.0. The reference r efren was not used to int erpret this result as normal/abnormal . [facility] HospitalEcpyjvhFVIHARZUVI2357-70-49 05:21:00 Test Item Value Reference Range Interpretation Comments Monocytes (test code = Monocytes) 6.8 2.0-12.0 [facility] HospitalAdrhnhcLQQOPHVSWT4524-42-62 05:21:00 Test Item Value Reference Range Interpretation Comments Neutrophils # (test code = Neutrophils 4.1 1.5-8.1 #) [facility] HospitalEhwecusJMTXGJEORM3738-29-20 05:21:00 Test Item Value Reference Range Interpretation Comments Basophils (test code = 0.9 See_Comment [Aut omated message] The Basophils) system which ge nerated this result tra nsmitted reference range : <=1.0. The reference r efren was not used to int erpret this result as normal/abnormal . [facility] HospitalXlsseqfWCSTQXREEK1173-34-92 05:21:00 Test Item Value Reference Range Interpretation Comments MPV (test code = MPV) 7.7 7.4-10.4 [facility] HospitalEnravitWYNPYJYRFN5892-23-29 05:21:00 Test Item Value Reference Range Interpretation Comments Monocytes # (test code 0.4 See_Comment [Aut omated message] The = Monocytes #) system which generated this result tra nsmitted reference range : <=0.8. The reference r efren was not used to int erpret this result as normal/abnormal . [facility] HospitalXqfnbjlVQKAYHVAZY9004-82-14 05:21:00 Test Item Value Reference Range Interpretation Comments Lymphocytes # (test code = Lymphocytes 1.6 1.0-5.5 #) [facility] HospitalDafmiimHXFYJHTJAR6029-77-52 05:21:00 Test Item Value Reference Range Interpretation Comments RBC Morph (test code = Normal (06/27/18 12:21 RBC Morph) AM) [facility] HospitalZmjxfapCGNQZBTABH9131-12-03 05:21:00 Test Item Value Reference Range Interpretation Comments TEG Interp (test Thrombelastograph results code = TEG show shortened value of R. Interp) This finding is suggestive of enzymatic hypercoagulation. CPT:52389 [facility] HospitalJbkxwuxHBQOUDUOII2827-73-87 05:21:00 Test Item Value Reference Range Interpretation Comments Ly30 (test code = 0.0 See_Comment [Automate d message] The Ly30) system which ge nerated this result transmit emory reference range : <=7.5. The reference range was not used to interpr et this result as dori l/abnormal. [facility] HospitalWheibckTGGJFDGRGL9397-98-76 05:21:00 Test Item Value Reference Range Interpretation Comments G-value (test code = G-value) 10.5 4.5-11.0 [facility] HospitalQaojyezVJNUIGJZKG3364-43-60 05:21:00 Test Item Value Reference Range Interpretation Comments Coag Index (test code 3.2 1 See_Comment [Auto mated message] The = Coag Index) system which g enerated this result transmit emory reference range : <=3.0. The reference range was not used to interpr et this result as dori l/abnormal. [facility] HospitalVlmiahlYYZQBLYPEI1383-14-43 05:21:00 Test Item Value Reference Range Interpretation Comments K-time (test code = K-time) 1.4 min 1.0-3.0 [facility] HospitalToekhqrSRLGDFJQIF4906-71-60 05:21:00 Test Item Value Reference Range Interpretation Comments Angle (test code = Angle) 70.7 degrees 53.0-72.0 [facility] HospitalUrnpqejOETKYPFGHY1932-40-47 05:21:00 Test Item Value Reference Range Interpretation Comments Max Amp (test code = Max Amp) 67.8 mm 50.0-70.0 [facility] HospitalTpdrabiQOEWYEAHPQ7437-54-15 05:21:00 Test Item Value Reference Range Interpretation Comments Platelet (test code = Platelet) 190 133-450 [facility] HospitalCbrhojnEDRXRBXAHE4658-72-09 05:21:00 Test Item Value Reference Range Interpretation Comments R-time (test code = R-time) 3.2 min 5.0-10.0 [facility] HospitalWzrlcccUEDQSRYFQQ2688-64-03 05:21:00 Test Item Value Reference Range Interpretation Comments TEG Data (test code = See Note (06/27/18 12:21 TEG Data) AM) [facility] HospitalFbuetkqPUKYNGGVLM4316-35-98 05:21:00 Test Item Value Reference Range Interpretation Comments INR (test code = INR) 1.05 1 0.85-1.17 [facility] HospitalQcpklqnGBOARBWMUA8728-33-72 05:21:00 Test Item Value Reference Range Interpretation Comments PT (test code = PT) 13.5 s 12.0-14.7 [facility] HospitalFngzgbuAXRFWBTAVJ3426-82-81 05:21:00 Test Item Value Reference Range Interpretation Comments PTT (test code = PTT) 33.5 s 22.9-35.8 [facility] HospitalKcpxxnaCZLLZMZOSN6138-56-61 05:21:00 Test Item Value Reference Range Interpretation Comments MCH (test code = MCH) 30.3 pg 27.0-31.0 [place] 807209-03-20 05:21:00 Test Item Value Reference Range Interpretation Comments MCV (test code = MCV) 90.2 80.0-94.0 [facility] HospitalKlvphtoSYCDAMPZEP2708-57-29 05:21:00 Test Item Value Reference Range Interpretation Comments MPV (test code = MPV) 7.7 7.4-10.4 [facility] HospitalWtqsporWIWLTYDWQS2280-35-91 05:21:00 Test Item Value Reference Range Interpretation Comments Platelet (test code = Platelet) 190 133-450 [facility] HospitalRualziuNOJTKOVTEX3148-50-44 05:21:00 Test Item Value Reference Range Interpretation Comments MCHC (test code = MCHC) 33.5 32.0-36.0 [facility] HospitalJfcwdefYBUXKOWJND2064-61-46 05:21:00 Test Item Value Reference Range Interpretation Comments MCHC (test code = MCHC) 33.5 32.0-36.0 [facility] HospitalBfgfjnnJMUDBVNUHD5204-26-56 05:21:00 Test Item Value Reference Range Interpretation Comments RDW (test code = RDW) 16.1 11.5-14.5 [facility] HospitalSjrabxnCZLDMFSNAL6901-20-90 05:21:00 Test Item Value Reference Range Interpretation Comments WBC (test code = WBC) 6.3 3.7-10.4 [facility] HospitalYpbgxxwSLOASZRZVW3741-66-86 05:21:00 Test Item Value Reference Range Interpretation Comments Hgb (test code = Hgb) 13.3 14.0-18.0 [facility] HospitalAxwufncKWAZZUQPXZ4105-16-16 05:21:00 Test Item Value Reference Range Interpretation Comments Hct (test code = Hct) 39.6 42.0-54.0 [facility] HospitalNuyvayySFJHJDEICI3494-36-54 05:21:00 Test Item Value Reference Range Interpretation Comments RBC (test code = RBC) 4.39 4.70-6.10 [facility]ATHY[facility] WCWYMUK6890-48-90 05:21:00 Test Item Value Reference Range Interpretation Comments Ca Norm WB (test code = Ca Norm WB) 1.12 1.05-1.25 [facility] CPTQVFE8887-35-26 05:21:00 Test Item Value Reference Range Interpretation Comments Ca Ion WB (test code = Ca Ion WB) 1.15 1.05-1.25 [facility] HospitalBpwwrtxVJFUIETFPV7847-35-35 05:21:00 Test Item Value Reference Range Interpretation Comments RDW (test code = RDW) 16.1 11.5-14.5 [facility] HospitalKauckjsLEBORSZTLP9235-46-89 05:21:00 Test Item Value Reference Range Interpretation Comments WBC (test code = WBC) 6.3 3.7-10.4 [facility] HospitalPgdezfdWYRZKMSHIS4146-58-60 05:21:00 Test Item Value Reference Range Interpretation Comments Hgb (test code = Hgb) 13.3 14.0-18.0 [facility] HospitalKbdedcdBIBYUSIBHW2962-91-60 05:21:00 Test Item Value Reference Range Interpretation Comments Hct (test code = Hct) 39.6 42.0-54.0 [facility] HospitalHrsnwweDREMGRWZXI5714-66-31 05:21:00 Test Item Value Reference Range Interpretation Comments RBC (test code = RBC) 4.39 4.70-6.10 [facility]2019-03-20 05:21:00 Test Item Value Reference Range Interpretation Comments Ca Norm WB (test code = Ca Norm WB) 1.12 1.05-1.25 [facility]2019-03-20 05:21:00 Test Item Value Reference Range Interpretation Comments Ca Ion WB (test code = Ca Ion WB) 1.15 1.05-1.25 [facility]2019-03-20 05:21:00 Test Item Value Reference Range Interpretation Comments eGFR (test code = eGFR) 35 [facility]2019-03-20 05:21:00 Test Item Value Reference Range Interpretation Comments Calcium Lvl (test code = Calcium Lvl) 8.7 8.5-10.5 [facility]2019-03-20 05:21:00 Test Item Value Reference Range Interpretation Comments CO2 (test code = CO2) 24 24-32 [facility]2019-03-20 05:21:00 Test Item Value Reference Range Interpretation Comments Sodium Lvl (test code = Sodium Lvl) 144 135-145 [facility]2019-03-20 05:21:00 Test Item Value Reference Range Interpretation Comments Creatinine Lvl (test code = Creatinine 1.85 0.50-1.40 Lvl) [facility]2019-03-20 05:21:00 Test Item Value Reference Range Interpretation Comments Potassium Lvl (test code = Potassium 4.0 3.5-5.1 Lvl) [facility]2019-03-20 05:21:00 Test Item Value Reference Range Interpretation Comments Chloride Lvl (test code = Chloride Lvl) 113 95-109 [facility]2019-03-20 05:21:00 Test Item Value Reference Range Interpretation Comments BUN (test code = BUN) 25 7-22 [facility]2019-03-20 05:21:00 Test Item Value Reference Range Interpretation Comments Glucose Lvl (test code = Glucose Lvl) 88 70-99 [facility]2019-03-20 05:21:00 Test Item Value Reference Range Interpretation Comments AGAP (test code = AGAP) 11.0 10.0-20.0 [facility]2019-03-20 05:21:00 Test Item Value Reference Range Interpretation Comments Phosphorus (test code = Phosphorus) 3.3 2.5-4.5 [facility]2019-03-20 05:21:00 Test Item Value Reference Range Interpretation Comments Magnesium Lvl (test code = Magnesium 2.0 1.8-2.4 Lvl) [facility] HospitalMjhawvxJCXOWNFMCY4071-43-95 05:21:00 Test Item Value Reference Range Interpretation Comments Basophils # (test code 0.1 See_Comment [Aut omated message] The = Basophils #) system which generated this result tra nsmitted reference range : <=0.2. The reference r efren was not used to int erpret this result as normal/abnormal . [facility] HospitalCsepjalLSJIDYNENI3894-13-99 05:21:00 Test Item Value Reference Range Interpretation Comments Eosinophils # (test code 0.1 See_Comment [A utomated message] The = Eosinophils #) system whic h generated this result tra nsmitted reference range : <=0.5. The reference r erfen was not used to int erpret this result as normal/abnormal . [facility] HospitalIvfodieYGGKQEUIAV2276-58-88 05:21:00 Test Item Value Reference Range Interpretation Comments Plt Morph (test code = Normal (06/27/18 12:21 Plt Morph) AM) [facility] HospitalPyzdlkfRIVVSOOHCX9327-75-63 05:21:00 Test Item Value Reference Range Interpretation Comments Segs (test code = Segs) 64.6 45.0-75.0 [facility] HospitalDqyjrecCTETCUIKWB9525-78-22 05:21:00 Test Item Value Reference Range Interpretation Comments Lymphocytes (test code = Lymphocytes) 25.7 20.0-40.0 [facility] HospitalGdwlpehQSVDPEUOQD4038-45-64 05:21:00 Test Item Value Reference Range Interpretation Comments Eosinophils (test code = 2.0 See_Comment [A utomated message] The Eosinophils) system which ge nerated this result tra nsmitted reference range : <=4.0. The reference r efren was not used to int erpret this result as normal/abnormal . [facility] HospitalHovbvihYMDHOOMLDD1169-38-74 05:21:00 Test Item Value Reference Range Interpretation Comments Monocytes (test code = Monocytes) 6.8 2.0-12.0 [facility] HospitalSurymatHCGDOAZRHM3234-07-29 05:21:00 Test Item Value Reference Range Interpretation Comments Neutrophils # (test code = Neutrophils 4.1 1.5-8.1 #) [facility] HospitalSglcjfsMVPNEFKFSN2049-13-90 05:21:00 Test Item Value Reference Range Interpretation Comments Basophils (test code = 0.9 See_Comment [Aut omated message] The Basophils) system which ge nerated this result tra nsmitted reference range : <=1.0. The reference r efren was not used to int erpret this result as normal/abnormal . [facility] HospitalQwsktlsGVTRLTSNAH8130-64-17 05:21:00 Test Item Value Reference Range Interpretation Comments Monocytes # (test code 0.4 See_Comment [Aut omated message] The = Monocytes #) system which generated this result tra nsmitted reference range : <=0.8. The reference r efren was not used to int erpret this result as normal/abnormal . [facility] HospitalEflioloYVRXRSPKWQ7426-27-59 05:21:00 Test Item Value Reference Range Interpretation Comments Lymphocytes # (test code = Lymphocytes 1.6 1.0-5.5 #) [facility] HospitalAjygbjwXWVTKJLHPV7396-97-08 05:21:00 Test Item Value Reference Range Interpretation Comments RBC Morph (test code = Normal (06/27/18 12:21 RBC Morph) AM) [facility] HospitalTliwgjfJXOHMVNACP9910-26-25 05:21:00 Test Item Value Reference Range Interpretation Comments TEG Interp (test Thrombelastograph results code = TEG show shortened value of R. Interp) This finding is suggestive of enzymatic hypercoagulation. CPT:19312 [facility] HospitalYmmehivQDUVOGJYPF4551-41-43 05:21:00 Test Item Value Reference Range Interpretation Comments Ly30 (test code = 0.0 See_Comment [Automate d message] The Ly30) system which ge nerated this result transmit emory reference range : <=7.5. The reference range was not used to interpr et this result as dori l/abnormal. [facility] HospitalBeqrjpnDTGRIIQFCR0254-49-69 05:21:00 Test Item Value Reference Range Interpretation Comments G-value (test code = G-value) 10.5 4.5-11.0 [facility] HospitalHduxhdtFGIKZJAUBT5291-30-20 05:21:00 Test Item Value Reference Range Interpretation Comments Coag Index (test code 3.2 1 See_Comment [Auto mated message] The = Coag Index) system which g enerated this result transmit emory reference range : <=3.0. The reference range was not used to interpr et this result as dori l/abnormal. [facility] HospitalAxpctnxMSESZHKYTM5412-53-10 05:21:00 Test Item Value Reference Range Interpretation Comments K-time (test code = K-time) 1.4 min 1.0-3.0 [facility] HospitalEbrbehiQRALALGZNG6645-20-15 05:21:00 Test Item Value Reference Range Interpretation Comments Angle (test code = Angle) 70.7 degrees 53.0-72.0 [facility] HospitalIhnfkghVSUWUZXMAN2772-30-74 05:21:00 Test Item Value Reference Range Interpretation Comments Max Amp (test code = Max Amp) 67.8 mm 50.0-70.0 [facility] HospitalUzpmicnELYYSIKVLN5523-15-22 05:21:00 Test Item Value Reference Range Interpretation Comments R-time (test code = R-time) 3.2 min 5.0-10.0 [facility] HospitalDvytgcyCXIOBSVMIQ7572-10-69 05:21:00 Test Item Value Reference Range Interpretation Comments TEG Data (test code = See Note (06/27/18 12:21 TEG Data) AM) [facility] HospitalUuexhsaAXTXECBZXW6655-26-94 05:21:00 Test Item Value Reference Range Interpretation Comments INR (test code = INR) 1.05 1 0.85-1.17 [facility] HospitalHhhnpocPGWVOJSUNM6341-74-37 05:21:00 Test Item Value Reference Range Interpretation Comments PT (test code = PT) 13.5 s 12.0-14.7 [facility] HospitalUmcadowLOGOJIWDBE5403-01-91 05:21:00 Test Item Value Reference Range Interpretation Comments PTT (test code = PTT) 33.5 s 22.9-35.8 [facility] HospitalQkxglxzLKWEDHSGZR9777-08-26 05:21:00 Test Item Value Reference Range Interpretation Comments MCH (test code = MCH) 30.3 pg 27.0-31.0 [facility] HospitalWgtivcdOUPSXONGOE1051-57-20 05:21:00 Test Item Value Reference Range Interpretation Comments MCV (test code = MCV) 90.2 80.0-94.0 [facility] HospitalRsshedxSVOZRMKVJW0718-78-29 05:21:00 Test Item Value Reference Range Interpretation Comments MPV (test code = MPV) 7.7 7.4-10.4 [facility] HospitalQkymlobVNRPSYYQIT4263-95-79 05:21:00 Test Item Value Reference Range Interpretation Comments Platelet (test code = Platelet) 190 133-450 [facility] HospitalXypghhiPTAUAYKQTH6873-36-42 05:21:00 Test Item Value Reference Range Interpretation Comments MCHC (test code = MCHC) 33.5 32.0-36.0 [facility] HospitalKlecjfoQJKCQZBVVJ0147-99-31 05:21:00 Test Item Value Reference Range Interpretation Comments RDW (test code = RDW) 16.1 11.5-14.5 [facility] HospitalXoydsuqOXHMCQYGEN1727-88-46 05:21:00 Test Item Value Reference Range Interpretation Comments WBC (test code = WBC) 6.3 3.7-10.4 [facility] HospitalIearbizGJWEMKRQHW6961-65-33 05:21:00 Test Item Value Reference Range Interpretation Comments Hgb (test code = Hgb) 13.3 14.0-18.0 [facility] HospitalOlejlpnKRKZUVGKPS3704-98-07 05:21:00 Test Item Value Reference Range Interpretation Comments Hct (test code = Hct) 39.6 42.0-54.0 [facility] HospitalBxofvyfPWGPJYWSLD4581-64-94 05:21:00 Test Item Value Reference Range Interpretation Comments RBC (test code = RBC) 4.39 4.70-6.10 [facility] MTRQCOW9481-94-55 05:21:00 Test Item Value Reference Range Interpretation Comments Ca Norm WB (test code = Ca Norm WB) 1.12 1.05-1.25 [facility]PARATHYROID GVGTBCA0437-65-69 05:21:00 Test Item Value Reference Range Interpretation Comments Ca Ion WB (test code = Ca Ion WB) 1.15 1.05-1.25 [facility]2019-03-20 05:21:00 Test Item Value Reference Range Interpretation Comments eGFR (test code = eGFR) 35 [facility]2019-03-20 05:21:00 Test Item Value Reference Range Interpretation Comments Calcium Lvl (test code = Calcium Lvl) 8.7 8.5-10.5 [facility]2019-03-20 05:21:00 Test Item Value Reference Range Interpretation Comments CO2 (test code = CO2) 24 24-32 [facility]2019-03-20 05:21:00 Test Item Value Reference Range Interpretation Comments Sodium Lvl (test code = Sodium Lvl) 144 135-145 [facility]2019-03-20 05:21:00 Test Item Value Reference Range Interpretation Comments Creatinine Lvl (test code = Creatinine 1.85 0.50-1.40 Lvl) [facility]2019-03-20 05:21:00 Test Item Value Reference Range Interpretation Comments Potassium Lvl (test code = Potassium 4.0 3.5-5.1 Lvl) [facility]2019-03-20 05:21:00 Test Item Value Reference Range Interpretation Comments Chloride Lvl (test code = Chloride Lvl) 113 95-109 [facility]2019-03-20 05:21:00 Test Item Value Reference Range Interpretation Comments BUN (test code = BUN) 25 7-22 [facility]2019-03-20 05:21:00 Test Item Value Reference Range Interpretation Comments Glucose Lvl (test code = Glucose Lvl) 88 70-99 [facility]2019-03-20 05:21:00 Test Item Value Reference Range Interpretation Comments AGAP (test code = AGAP) 11.0 10.0-20.0 [facility]2019-03-20 05:21:00 Test Item Value Reference Range Interpretation Comments Phosphorus (test code = Phosphorus) 3.3 2.5-4.5 [facility]2019-03-20 05:21:00 Test Item Value Reference Range Interpretation Comments Magnesium Lvl (test code = Magnesium 2.0 1.8-2.4 Lvl) [facility] HospitalZhabcbqJDLCCOXJCE5662-52-11 05:21:00 Test Item Value Reference Range Interpretation Comments Basophils # (test code 0.1 See_Comment [Aut omated message] The = Basophils #) system which generated this result tra nsmitted reference range : <=0.2. The reference r efren was not used to int erpret this result as normal/abnormal . [facility] HospitalEopnxscFYXXMHRVMF2014-21-71 05:21:00 Test Item Value Reference Range Interpretation Comments Eosinophils # (test code 0.1 See_Comment [A utomated message] The = Eosinophils #) system whic h generated this result tra nsmitted reference range : <=0.5. The reference r efren was not used to int erpret this result as normal/abnormal . [facility] HospitalCuzxjzkUJDDKCQKKJ4850-09-87 05:21:00 Test Item Value Reference Range Interpretation Comments Plt Morph (test code = Normal (06/27/18 12:21 Plt Morph) AM) [facility] HospitalQknfnoaODCEGBKXEA6418-03-39 05:21:00 Test Item Value Reference Range Interpretation Comments Segs (test code = Segs) 64.6 45.0-75.0 [facility] HospitalZhrzpnkKQZWAHEYIE0674-13-55 05:21:00 Test Item Value Reference Range Interpretation Comments Lymphocytes (test code = Lymphocytes) 25.7 20.0-40.0 [facility] HospitalLzxidghYYKKRBBPKJ2963-88-36 05:21:00 Test Item Value Reference Range Interpretation Comments Eosinophils (test code = 2.0 See_Comment [A utomated message] The Eosinophils) system which ge nerated this result tra nsmitted reference range : <=4.0. The reference r efren was not used to int erpret this result as normal/abnormal . [facility] HospitalGwihhipDMPBQFLEHD7096-83-83 05:21:00 Test Item Value Reference Range Interpretation Comments Monocytes (test code = Monocytes) 6.8 2.0-12.0 [facility] HospitalCwvtdbcMMCTQSFDOA5948-37-31 05:21:00 Test Item Value Reference Range Interpretation Comments Neutrophils # (test code = Neutrophils 4.1 1.5-8.1 #) [facility] HospitalUbgcjfhKSXASYMONH0336-49-23 05:21:00 Test Item Value Reference Range Interpretation Comments Basophils (test code = 0.9 See_Comment [Aut omated message] The Basophils) system which ge nerated this result tra nsmitted reference range : <=1.0. The reference r efren was not used to int erpret this result as normal/abnormal . [facility] HospitalOkkgjzsKWMOFFRBTJ1437-31-57 05:21:00 Test Item Value Reference Range Interpretation Comments Monocytes # (test code 0.4 See_Comment [Aut omated message] The = Monocytes #) system which generated this result tra nsmitted reference range : <=0.8. The reference r efren was not used to int erpret this result as normal/abnormal . [facility] HospitalIizwfusHFOTVFPVHO5441-63-49 05:21:00 Test Item Value Reference Range Interpretation Comments Lymphocytes # (test code = Lymphocytes 1.6 1.0-5.5 #) [facility] HospitalUkkcvajUYNDSQTNOV3401-72-88 05:21:00 Test Item Value Reference Range Interpretation Comments RBC Morph (test code = Normal (06/27/18 12:21 RBC Morph) AM) [facility] HospitalTdbdynoXGTCUAIMYG2297-67-05 05:21:00 Test Item Value Reference Range Interpretation Comments TEG Interp (test Thrombelastograph results code = TEG show shortened value of R. Interp) This finding is suggestive of enzymatic hypercoagulation. CPT:90696 [facility] HospitalYfztiyoRWEMTKEOOO0939-50-05 05:21:00 Test Item Value Reference Range Interpretation Comments Ly30 (test code = 0.0 See_Comment [Automate d message] The Ly30) system which ge nerated this result transmit emory reference range : <=7.5. The reference range was not used to interpr et this result as dori l/abnormal. [facility] HospitalLjmjmitCYYSORGUPS4876-05-30 05:21:00 Test Item Value Reference Range Interpretation Comments G-value (test code = G-value) 10.5 4.5-11.0 [facility] HospitalSuqcrmqZSZKUVOYWR0630-47-75 05:21:00 Test Item Value Reference Range Interpretation Comments Coag Index (test code 3.2 1 See_Comment [Auto mated message] The = Coag Index) system which g enerated this result transmit emory reference range : <=3.0. The reference range was not used to interpr et this result as dori l/abnormal. [facility] HospitalFplozdtKDFGSKPQQL9106-19-37 05:21:00 Test Item Value Reference Range Interpretation Comments K-time (test code = K-time) 1.4 min 1.0-3.0 [facility] HospitalQpwuaxkBJOWRBJEBW2976-57-37 05:21:00 Test Item Value Reference Range Interpretation Comments Angle (test code = Angle) 70.7 degrees 53.0-72.0 [facility] HospitalMmguaxxWFMIECBBOZ9742-92-49 05:21:00 Test Item Value Reference Range Interpretation Comments Max Amp (test code = Max Amp) 67.8 mm 50.0-70.0 [facility] HospitalNmdlkdmRQUNTEWNIZ5562-63-30 05:21:00 Test Item Value Reference Range Interpretation Comments R-time (test code = R-time) 3.2 min 5.0-10.0 [facility] HospitalHooogtkDPQGGCMCKI0457-21-10 05:21:00 Test Item Value Reference Range Interpretation Comments TEG Data (test code = See Note (06/27/18 12:21 TEG Data) AM) [facility] HospitalMijceewXBFWVTYROY8503-01-32 05:21:00 Test Item Value Reference Range Interpretation Comments INR (test code = INR) 1.05 1 0.85-1.17 [facility] HospitalQrzoqebKWOCUZYPSR0626-57-94 05:21:00 Test Item Value Reference Range Interpretation Comments PT (test code = PT) 13.5 s 12.0-14.7 [facility] HospitalZvkzkkyKKKEGWGONN8314-64-66 05:21:00 Test Item Value Reference Range Interpretation Comments PTT (test code = PTT) 33.5 s 22.9-35.8 [facility] HospitalBvewkqjGZDCLTTUDB9584-35-62 05:21:00 Test Item Value Reference Range Interpretation Comments MCH (test code = MCH) 30.3 pg 27.0-31.0 [facility] HospitalLzxaamcPJFTTUWLLA2445-62-50 05:21:00 Test Item Value Reference Range Interpretation Comments MCV (test code = MCV) 90.2 80.0-94.0 [facility] HospitalWdliosaNCLYDFZOGX0475-67-31 05:21:00 Test Item Value Reference Range Interpretation Comments MPV (test code = MPV) 7.7 7.4-10.4 [facility] HospitalXkzjinzZAWGCJBSLO1429-77-78 05:21:00 Test Item Value Reference Range Interpretation Comments Platelet (test code = Platelet) 190 133-450 [facility] HospitalJzcnunnESOUUWASEX8730-19-42 05:21:00 Test Item Value Reference Range Interpretation Comments MCHC (test code = MCHC) 33.5 32.0-36.0 [facility] HospitalJizfvxuQJGCWNPRNV5823-84-11 05:21:00 Test Item Value Reference Range Interpretation Comments RDW (test code = RDW) 16.1 11.5-14.5 [facility] HospitalSwldqbmMNXEYGBWQY2027-24-88 05:21:00 Test Item Value Reference Range Interpretation Comments WBC (test code = WBC) 6.3 3.7-10.4 [facility] HospitalJqmbfvrOYVCWRCWPJ7736-69-54 05:21:00 Test Item Value Reference Range Interpretation Comments Hgb (test code = Hgb) 13.3 14.0-18.0 [facility] HospitalOfbzkocOUTWQOAWIC6696-63-15 05:21:00 Test Item Value Reference Range Interpretation Comments Hct (test code = Hct) 39.6 42.0-54.0 [facility] HospitalVkcoydwYHWNAFJABB8616-80-66 05:21:00 Test Item Value Reference Range Interpretation Comments RBC (test code = RBC) 4.39 4.70-6.10 [facility]PAR[facility] IHJNIJI7776-68-00 05:21:00 Test Item Value Reference Range Interpretation Comments Ca Norm WB (test code = Ca Norm WB) 1.12 1.05-1.25 [facility]ATHY[facility]ID SHGJVGS3854-39-33 05:21:00 Test Item Value Reference Range Interpretation Comments Ca Ion WB (test code = Ca Ion WB) 1.15 1.05-1.25 [facility]2019-03-20 05:21:00 Test Item Value Reference Range Interpretation Comments eGFR (test code = eGFR) 35 [facility]2019-03-20 05:21:00 Test Item Value Reference Range Interpretation Comments Calcium Lvl (test code = Calcium Lvl) 8.7 8.5-10.5 [facility]2019-03-20 05:21:00 Test Item Value Reference Range Interpretation Comments CO2 (test code = CO2) 24 24-32 [facility]2019-03-20 05:21:00 Test Item Value Reference Range Interpretation Comments Sodium Lvl (test code = Sodium Lvl) 144 135-145 [facility]2019-03-20 05:21:00 Test Item Value Reference Range Interpretation Comments Creatinine Lvl (test code = Creatinine 1.85 0.50-1.40 Lvl) [facility]2019-03-20 05:21:00 Test Item Value Reference Range Interpretation Comments Potassium Lvl (test code = Potassium 4.0 3.5-5.1 Lvl) [facility]2019-03-20 05:21:00 Test Item Value Reference Range Interpretation Comments Chloride Lvl (test code = Chloride Lvl) 113 95-109 [facility]2019-03-20 05:21:00 Test Item Value Reference Range Interpretation Comments BUN (test code = BUN) 25 7-22 [facility]2019-03-20 05:21:00 Test Item Value Reference Range Interpretation Comments Glucose Lvl (test code = Glucose Lvl) 88 70-99 [facility]2019-03-20 05:21:00 Test Item Value Reference Range Interpretation Comments AGAP (test code = AGAP) 11.0 10.0-20.0 [facility]2019-03-20 05:21:00 Test Item Value Reference Range Interpretation Comments Phosphorus (test code = Phosphorus) 3.3 2.5-4.5 [facility]2019-03-20 05:21:00 Test Item Value Reference Range Interpretation Comments Magnesium Lvl (test code = Magnesium 2.0 1.8-2.4 Lvl) [facility] HospitalAyxipxnIYKKYQRILC7145-39-69 05:21:00 Test Item Value Reference Range Interpretation Comments Basophils # (test code 0.1 See_Comment [Aut omated message] The = Basophils #) system which generated this result tra nsmitted reference range : <=0.2. The reference r efren was not used to int erpret this result as normal/abnormal . [facility] HospitalTdnajsgRVHMFQSHOU1991-42-19 05:21:00 Test Item Value Reference Range Interpretation Comments Eosinophils # (test code 0.1 See_Comment [A utomated message] The = Eosinophils #) system whic h generated this result tra nsmitted reference range : <=0.5. The reference r efren was not used to int erpret this result as normal/abnormal . [facility] HospitalTffjtwjVTVTOIHOSL2376-93-78 05:21:00 Test Item Value Reference Range Interpretation Comments Plt Morph (test code = Normal (06/27/18 12:21 Plt Morph) AM) [facility] HospitalTsmhbfjEOQZAJZSCB6109-10-52 05:21:00 Test Item Value Reference Range Interpretation Comments Segs (test code = Segs) 64.6 45.0-75.0 [facility] HospitalKfhuagnWFJREIBJCX7404-10-44 05:21:00 Test Item Value Reference Range Interpretation Comments Lymphocytes (test code = Lymphocytes) 25.7 20.0-40.0 [facility] HospitalPuodeopASLHYONQOW7273-38-55 05:21:00 Test Item Value Reference Range Interpretation Comments Eosinophils (test code = 2.0 See_Comment [A utomated message] The Eosinophils) system which ge nerated this result tra nsmitted reference range : <=4.0. The reference r efren was not used to int erpret this result as normal/abnormal . [facility] HospitalMrjodveTKOMYNIYWK7652-71-03 05:21:00 Test Item Value Reference Range Interpretation Comments Monocytes (test code = Monocytes) 6.8 2.0-12.0 [facility] HospitalJkjicszIYCYMDOYRA7724-79-79 05:21:00 Test Item Value Reference Range Interpretation Comments Neutrophils # (test code = Neutrophils 4.1 1.5-8.1 #) [facility] HospitalYtiwqccWGWHQTUVCD3085-66-40 05:21:00 Test Item Value Reference Range Interpretation Comments Basophils (test code = 0.9 See_Comment [Aut omated message] The Basophils) system which ge nerated this result tra nsmitted reference range : <=1.0. The reference r efren was not used to int erpret this result as normal/abnormal . [facility] HospitalNfgmmqmZOVPYBSIPV4430-05-08 05:21:00 Test Item Value Reference Range Interpretation Comments Monocytes # (test code 0.4 See_Comment [Aut omated message] The = Monocytes #) system which generated this result tra nsmitted reference range : <=0.8. The reference r efren was not used to int erpret this result as normal/abnormal . [facility] HospitalTivxwiiFQKOKJPUSH7965-09-41 05:21:00 Test Item Value Reference Range Interpretation Comments Lymphocytes # (test code = Lymphocytes 1.6 1.0-5.5 #) [facility] HospitalSdioaeuPDNMTLJTEA1590-64-07 05:21:00 Test Item Value Reference Range Interpretation Comments RBC Morph (test code = Normal (06/27/18 12:21 RBC Morph) AM) [facility] HospitalDeclbqaXAXKBOLSEG3668-89-08 05:21:00 Test Item Value Reference Range Interpretation Comments TEG Interp (test Thrombelastograph results code = TEG show shortened value of R. Interp) This finding is suggestive of enzymatic hypercoagulation. CPT:30218 [facility] HospitalTqdyhnmDRNDUOUQQE9066-11-60 05:21:00 Test Item Value Reference Range Interpretation Comments Ly30 (test code = 0.0 See_Comment [Automate d message] The Ly30) system which ge nerated this result transmit emory reference range : <=7.5. The reference range was not used to interpr et this result as dori l/abnormal. [facility] HospitalIkbegxsWDFAVJJZDW2280-26-88 05:21:00 Test Item Value Reference Range Interpretation Comments G-value (test code = G-value) 10.5 4.5-11.0 [facility] HospitalVmcnmcwXPHNPPGMRR6924-53-86 05:21:00 Test Item Value Reference Range Interpretation Comments Coag Index (test code 3.2 1 See_Comment [Auto mated message] The = Coag Index) system which g enerated this result transmit emory reference range : <=3.0. The reference range was not used to interpr et this result as dori l/abnormal. [facility] HospitalGiblspdSVJVHBPTQH1708-28-86 05:21:00 Test Item Value Reference Range Interpretation Comments K-time (test code = K-time) 1.4 min 1.0-3.0 [facility] HospitalFcxnzxwBIUTGXJYRZ4723-40-63 05:21:00 Test Item Value Reference Range Interpretation Comments Angle (test code = Angle) 70.7 degrees 53.0-72.0 [facility] HospitalUzkzlqeMGTSYNBJOG8171-20-73 05:21:00 Test Item Value Reference Range Interpretation Comments Max Amp (test code = Max Amp) 67.8 mm 50.0-70.0 [facility] HospitalOavjnpbLXANKSULIZ2377-00-10 05:21:00 Test Item Value Reference Range Interpretation Comments R-time (test code = R-time) 3.2 min 5.0-10.0 [facility] HospitalQshtupbHMJUSKQZZI6419-36-25 05:21:00 Test Item Value Reference Range Interpretation Comments TEG Data (test code = See Note (06/27/18 12:21 TEG Data) AM) [facility] HospitalYjieotyIZZWKPGNFN5697-94-80 05:21:00 Test Item Value Reference Range Interpretation Comments INR (test code = INR) 1.05 1 0.85-1.17 [facility] HospitalYzcaggzBJCGUQDJJQ5448-15-71 05:21:00 Test Item Value Reference Range Interpretation Comments PT (test code = PT) 13.5 s 12.0-14.7 [facility] HospitalKexqxzpPXXIXMXANY4970-51-34 05:21:00 Test Item Value Reference Range Interpretation Comments PTT (test code = PTT) 33.5 s 22.9-35.8 [facility] HospitalKrhhimaIZNAKQANXY3391-19-83 05:21:00 Test Item Value Reference Range Interpretation Comments MCH (test code = MCH) 30.3 pg 27.0-31.0 [facility] HospitalTixpiasDAMEAAGVZV7870-64-83 05:21:00 Test Item Value Reference Range Interpretation Comments MCV (test code = MCV) 90.2 80.0-94.0 [facility] HospitalOhqimlpCXBBSQRCWW8070-49-48 05:21:00 Test Item Value Reference Range Interpretation Comments MPV (test code = MPV) 7.7 7.4-10.4 [facility] HospitalHvdohnrWEJPJVFWQT1621-06-24 05:21:00 Test Item Value Reference Range Interpretation Comments Platelet (test code = Platelet) 190 133-450 [facility] HospitalCefjazeYEKOMBAUGH0649-86-57 05:21:00 Test Item Value Reference Range Interpretation Comments MCHC (test code = MCHC) 33.5 32.0-36.0 [facility] HospitalZiuyxqkXYTHMJNCNT1244-39-41 05:21:00 Test Item Value Reference Range Interpretation Comments RDW (test code = RDW) 16.1 11.5-14.5 [facility] HospitalKqfboodGTOTUIPIST4732-80-65 05:21:00 Test Item Value Reference Range Interpretation Comments WBC (test code = WBC) 6.3 3.7-10.4 [facility] HospitalEfpauczDZYAVJXHEW1215-16-42 05:21:00 Test Item Value Reference Range Interpretation Comments Hgb (test code = Hgb) 13.3 14.0-18.0 [facility] HospitalTvejewtGRIWYWCSMY9741-63-44 05:21:00 Test Item Value Reference Range Interpretation Comments Hct (test code = Hct) 39.6 42.0-54.0 [facility]VbqrfkbKWZTYLRYHP3401-94-61 05:21:00 Test Item Value Reference Range Interpretation Comments RBC (test code = RBC) 4.39 4.70-6.10 [facility] XRBWWYX1397-40-49 05:21:00 Test Item Value Reference Range Interpretation Comments Ca Norm WB (test code = Ca Norm WB) 1.12 1.05-1.25 [facility] PACYIDE7521-33-24 05:21:00 Test Item Value Reference Range Interpretation Comments Ca Ion WB (test code = Ca Ion WB) 1.15 1.05-1.25 [facility]2019-03-20 05:21:00 Test Item Value Reference Range Interpretation Comments eGFR (test code = eGFR) 35 [facility]2019-03-20 05:21:00 Test Item Value Reference Range Interpretation Comments Calcium Lvl (test code = Calcium Lvl) 8.7 8.5-10.5 [facility]2019-03-20 05:21:00 Test Item Value Reference Range Interpretation Comments CO2 (test code = CO2) 24 24-32 [facility]2019-03-20 05:21:00 Test Item Value Reference Range Interpretation Comments Sodium Lvl (test code = Sodium Lvl) 144 135-145 [facility]2019-03-20 05:21:00 Test Item Value Reference Range Interpretation Comments Creatinine Lvl (test code = Creatinine 1.85 0.50-1.40 Lvl) [facility]2019-03-20 05:21:00 Test Item Value Reference Range Interpretation Comments Potassium Lvl (test code = Potassium 4.0 3.5-5.1 Lvl) [facility]2019-03-20 05:21:00 Test Item Value Reference Range Interpretation Comments Chloride Lvl (test code = Chloride Lvl) 113 95-109 [facility]2019-03-20 05:21:00 Test Item Value Reference Range Interpretation Comments BUN (test code = BUN) 25 7-22 [facility]2019-03-20 05:21:00 Test Item Value Reference Range Interpretation Comments Glucose Lvl (test code = Glucose Lvl) 88 70-99 [facility]2019-03-20 05:21:00 Test Item Value Reference Range Interpretation Comments AGAP (test code = AGAP) 11.0 10.0-20.0 [facility]2019-03-20 05:21:00 Test Item Value Reference Range Interpretation Comments Phosphorus (test code = Phosphorus) 3.3 2.5-4.5 [facility]2019-03-20 05:21:00 Test Item Value Reference Range Interpretation Comments Magnesium Lvl (test code = Magnesium 2.0 1.8-2.4 Lvl) [facility] HospitalCpwztkpSCYHEINHRU3700-28-58 05:21:00 Test Item Value Reference Range Interpretation Comments Basophils # (test code 0.1 See_Comment [Aut omated message] The = Basophils #) system which generated this result tra nsmitted reference range : <=0.2. The reference r efren was not used to int erpret this result as normal/abnormal . [facility] HospitalMbnkdevOWOHBQPMXY3000-82-85 05:21:00 Test Item Value Reference Range Interpretation Comments Eosinophils # (test code 0.1 See_Comment [A utomated message] The = Eosinophils #) system whic h generated this result tra nsmitted reference range : <=0.5. The reference r efren was not used to int erpret this result as normal/abnormal . [facility] HospitalFhhpcylISIDAAJLIJ3016-40-64 05:21:00 Test Item Value Reference Range Interpretation Comments Plt Morph (test code = Normal (06/27/18 12:21 Plt Morph) AM) [facility] HospitalZfvnadlIFHFRCLMJP8003-41-14 05:21:00 Test Item Value Reference Range Interpretation Comments Segs (test code = Segs) 64.6 45.0-75.0 [facility] HospitalOoorvtcRYDAEUMCLD4889-39-58 05:21:00 Test Item Value Reference Range Interpretation Comments Lymphocytes (test code = Lymphocytes) 25.7 20.0-40.0 [facility] HospitalBiuxnqsMZFVGHYKYA3443-64-80 05:21:00 Test Item Value Reference Range Interpretation Comments Eosinophils (test code = 2.0 See_Comment [A utomated message] The Eosinophils) system which ge nerated this result tra nsmitted reference range : <=4.0. The reference r efren was not used to int erpret this result as normal/abnormal . [facility] HospitalEizanvzASVNVNRSSY8134-65-21 05:21:00 Test Item Value Reference Range Interpretation Comments Monocytes (test code = Monocytes) 6.8 2.0-12.0 [facility] HospitalCuzmsxwXPZQTHKYSZ7351-68-80 05:21:00 Test Item Value Reference Range Interpretation Comments Neutrophils # (test code = Neutrophils 4.1 1.5-8.1 #) [facility] HospitalCnlfsrqULCFSKGMIG3273-34-64 05:21:00 Test Item Value Reference Range Interpretation Comments Basophils (test code = 0.9 See_Comment [Aut omated message] The Basophils) system which ge nerated this result tra nsmitted reference range : <=1.0. The reference r efren was not used to int erpret this result as normal/abnormal . [facility] HospitalXwqyhozPTYQMLPJXP0883-31-09 05:21:00 Test Item Value Reference Range Interpretation Comments Monocytes # (test code 0.4 See_Comment [Aut omated message] The = Monocytes #) system which generated this result tra nsmitted reference range : <=0.8. The reference r efren was not used to int erpret this result as normal/abnormal . [facility] HospitalXziymltQIUGAPSUEJ8513-78-57 05:21:00 Test Item Value Reference Range Interpretation Comments Lymphocytes # (test code = Lymphocytes 1.6 1.0-5.5 #) [facility] HospitalGavkozwTAGUUUSNGL8262-27-41 05:21:00 Test Item Value Reference Range Interpretation Comments RBC Morph (test code = Normal (06/27/18 12:21 RBC Morph) AM) [facility] HospitalCrpyhooDUZFUVMOCB3032-40-16 05:21:00 Test Item Value Reference Range Interpretation Comments TEG Interp (test Thrombelastograph results code = TEG show shortened value of R. Interp) This finding is suggestive of enzymatic hypercoagulation. CPT:62265 [facility] HospitalHsewcftSKZMZNGMJG9117-48-53 05:21:00 Test Item Value Reference Range Interpretation Comments Ly30 (test code = 0.0 See_Comment [Automate d message] The Ly30) system which ge nerated this result transmit emory reference range : <=7.5. The reference range was not used to interpr et this result as doir l/abnormal. [facility] HospitalAgloisfQPWVDNVJTO0455-31-24 05:21:00 Test Item Value Reference Range Interpretation Comments G-value (test code = G-value) 10.5 4.5-11.0 [facility] HospitalGlxwszsZLTDOHLSOB6948-41-64 05:21:00 Test Item Value Reference Range Interpretation Comments Coag Index (test code 3.2 1 See_Comment [Auto mated message] The = Coag Index) system which g enerated this result transmit emory reference range : <=3.0. The reference range was not used to interpr et this result as dori l/abnormal. [facility] HospitalKzbwjbwKAJUPMUUAY5784-67-91 05:21:00 Test Item Value Reference Range Interpretation Comments K-time (test code = K-time) 1.4 min 1.0-3.0 [facility] HospitalPfjykceRPAJDUBFHF5518-85-64 05:21:00 Test Item Value Reference Range Interpretation Comments Angle (test code = Angle) 70.7 degrees 53.0-72.0 [facility] HospitalChgorrkHIRJEOAMSN4164-87-14 05:21:00 Test Item Value Reference Range Interpretation Comments Max Amp (test code = Max Amp) 67.8 mm 50.0-70.0 [facility] HospitalYykyesxYCTKJVVQKB7166-86-78 05:21:00 Test Item Value Reference Range Interpretation Comments R-time (test code = R-time) 3.2 min 5.0-10.0 [facility] HospitalPptmdugQHYVYUPGPY6721-37-68 05:21:00 Test Item Value Reference Range Interpretation Comments TEG Data (test code = See Note (06/27/18 12:21 TEG Data) AM) [facility] HospitalLkklmfkDTECUTWPRW8853-67-38 05:21:00 Test Item Value Reference Range Interpretation Comments INR (test code = INR) 1.05 1 0.85-1.17 [facility] HospitalHhnafwzEMJQDLIREL3608-17-48 05:21:00 Test Item Value Reference Range Interpretation Comments PT (test code = PT) 13.5 s 12.0-14.7 [facility] HospitalQljrrvcOVSEGBAWFP9186-09-75 05:21:00 Test Item Value Reference Range Interpretation Comments PTT (test code = PTT) 33.5 s 22.9-35.8 [facility] HospitalNhicmltIYIZFYMOLL6188-39-15 05:21:00 Test Item Value Reference Range Interpretation Comments MCH (test code = MCH) 30.3 pg 27.0-31.0 [facility] HospitalTixbzbvRHEJEAWYLQ5733-76-34 05:21:00 Test Item Value Reference Range Interpretation Comments MCV (test code = MCV) 90.2 80.0-94.0 [facility] HospitalPgwrumvHBLMWEUZHM2259-56-62 05:21:00 Test Item Value Reference Range Interpretation Comments MPV (test code = MPV) 7.7 7.4-10.4 [facility] HospitalEkghrqwQQELKNLINP6406-88-80 05:21:00 Test Item Value Reference Range Interpretation Comments Platelet (test code = Platelet) 190 133-450 [facility] HospitalYenlpihNNDLJMOAEY0214-55-19 05:21:00 Test Item Value Reference Range Interpretation Comments MCHC (test code = MCHC) 33.5 32.0-36.0 [facility] HospitalLcbtiwdPBAVEWGMPT8237-56-23 05:21:00 Test Item Value Reference Range Interpretation Comments RDW (test code = RDW) 16.1 11.5-14.5 [facility] HospitalJrzwrfxKIZAJAAFUV5316-23-30 05:21:00 Test Item Value Reference Range Interpretation Comments WBC (test code = WBC) 6.3 3.7-10.4 [facility] HospitalZmgmsvnXNBVJAUKJU8905-99-14 05:21:00 Test Item Value Reference Range Interpretation Comments Hgb (test code = Hgb) 13.3 14.0-18.0 [facility] HospitalTpdhjyvZWGQXKZXUY7025-36-05 05:21:00 Test Item Value Reference Range Interpretation Comments Hct (test code = Hct) 39.6 42.0-54.0 [facility] HospitalCyyvuoeAMHZAWKQGP0490-62-31 05:21:00 Test Item Value Reference Range Interpretation Comments RBC (test code = RBC) 4.39 4.70-6.10 [facility] EGDAJNQ8645-86-34 05:21:00 Test Item Value Reference Range Interpretation Comments Ca Norm WB (test code = Ca Norm WB) 1.12 1.05-1.25 [facility]2019-03-20 05:21:00 Test Item Value Reference Range Interpretation Comments Ca Ion WB (test code = Ca Ion WB) 1.15 1.05-1.25 [facility]2019-03-20 05:21:00 Test Item Value Reference Range Interpretation Comments eGFR (test code = eGFR) 35 [facility]2019-03-20 05:21:00 Test Item Value Reference Range Interpretation Comments Calcium Lvl (test code = Calcium Lvl) 8.7 8.5-10.5 [facility]2019-03-20 05:21:00 Test Item Value Reference Range Interpretation Comments CO2 (test code = CO2) 24 24-32 [facility]2019-03-20 05:21:00 Test Item Value Reference Range Interpretation Comments Sodium Lvl (test code = Sodium Lvl) 144 135-145 [facility] [facility]2019-03-20 05:21:00 Test Item Value Reference Range Interpretation Comments Creatinine Lvl (test code = Creatinine 1.85 0.50-1.40 Lvl) [facility]2019-03-20 05:21:00 Test Item Value Reference Range Interpretation Comments Potassium Lvl (test code = Potassium 4.0 3.5-5.1 Lvl) [facility]2019-03-20 05:21:00 Test Item Value Reference Range Interpretation Comments Chloride Lvl (test code = Chloride Lvl) 113 95-109 [facility]2019-03-20 05:21:00 Test Item Value Reference Range Interpretation Comments BUN (test code = BUN) 25 7-22 [facility]2019-03-20 05:21:00 Test Item Value Reference Range Interpretation Comments Glucose Lvl (test code = Glucose Lvl) 88 70-99 [facility]2019-03-20 05:21:00 Test Item Value Reference Range Interpretation Comments AGAP (test code = AGAP) 11.0 10.0-20.0 [facility]2019-03-20 05:21:00 Test Item Value Reference Range Interpretation Comments Phosphorus (test code = Phosphorus) 3.3 2.5-4.5 [facility]2019-03-20 05:21:00 Test Item Value Reference Range Interpretation Comments Magnesium Lvl (test code = Magnesium 2.0 1.8-2.4 Lvl) [id number] 05:21:00 Test Item Value Reference Range Interpretation Comments Basophils # (test code 0.1 See_Comment [Aut omated message] The = Basophils #) system which generated this result tra nsmitted reference range : <=0.2. The reference r efren was not used to int erpret this result as normal/abnormal . [facility] HospitalLshrrrdJCFWRTOERX3906-83-48 05:21:00 Test Item Value Reference Range Interpretation Comments Eosinophils # (test code 0.1 See_Comment [A utomated message] The = Eosinophils #) system whic h generated this result tra nsmitted reference range : <=0.5. The reference r efren was not used to int erpret this result as normal/abnormal . [facility] HospitalHobhybdIADRCOFOFL5941-18-84 05:21:00 Test Item Value Reference Range Interpretation Comments Plt Morph (test code = Normal (06/27/18 12:21 Plt Morph) AM) [facility] HospitalRwahnxbCOXEQYAXPM7109-92-73 05:21:00 Test Item Value Reference Range Interpretation Comments Segs (test code = Segs) 64.6 45.0-75.0 [facility] HospitalSghmcipDFCKPNPOUK3134-00-32 05:21:00 Test Item Value Reference Range Interpretation Comments Lymphocytes (test code = Lymphocytes) 25.7 20.0-40.0 [facility] HospitalMygfxrnHXJZSYGVJW2577-97-62 05:21:00 Test Item Value Reference Range Interpretation Comments Eosinophils (test code = 2.0 See_Comment [A utomated message] The Eosinophils) system which ge nerated this result tra nsmitted reference range : <=4.0. The reference r efren was not used to int erpret this result as normal/abnormal . [facility] HospitalLkfinvkFSPFTEJLVN4320-37-03 05:21:00 Test Item Value Reference Range Interpretation Comments Monocytes (test code = Monocytes) 6.8 2.0-12.0 [facility] HospitalPxlfcocTGUVFSAOPY6165-29-56 05:21:00 Test Item Value Reference Range Interpretation Comments Neutrophils # (test code = Neutrophils 4.1 1.5-8.1 #) [facility] HospitalGpbnvwnLOTCQNANGB3718-26-35 05:21:00 Test Item Value Reference Range Interpretation Comments Basophils (test code = 0.9 See_Comment [Aut omated message] The Basophils) system which ge nerated this result tra nsmitted reference range : <=1.0. The reference r efren was not used to int erpret this result as normal/abnormal . [facility] HospitalHmnfjonOFVMRSJNHB6745-25-64 05:21:00 Test Item Value Reference Range Interpretation Comments Monocytes # (test code 0.4 See_Comment [Aut omated message] The = Monocytes #) system which generated this result tra nsmitted reference range : <=0.8. The reference r efren was not used to int erpret this result as normal/abnormal . [facility] HospitalZpvzotlIGPBKOIJGK7052-28-10 05:21:00 Test Item Value Reference Range Interpretation Comments Lymphocytes # (test code = Lymphocytes 1.6 1.0-5.5 #) [facility] HospitalEdlenetXVGXFKYGWP9823-95-83 05:21:00 Test Item Value Reference Range Interpretation Comments RBC Morph (test code = Normal (06/27/18 12:21 RBC Morph) AM) [facility] HospitalPmurppmTBLXMABYAU1054-99-93 05:21:00 Test Item Value Reference Range Interpretation Comments TEG Interp (test Thrombelastograph results code = TEG show shortened value of R. Interp) This finding is suggestive of enzymatic hypercoagulation. CPT:54632 [facility] HospitalOzdmmidGGFPNPHSGQ4201-66-18 05:21:00 Test Item Value Reference Range Interpretation Comments Ly30 (test code = 0.0 See_Comment [Automate d message] The Ly30) system which ge nerated this result transmit emory reference range : <=7.5. The reference range was not used to interpr et this result as dori l/abnormal. [facility] HospitalYvgzasiXRVDNKDUAK9577-70-86 05:21:00 Test Item Value Reference Range Interpretation Comments G-value (test code = G-value) 10.5 4.5-11.0 [facility] HospitalFutosadHFOANPDDCO3512-00-13 05:21:00 Test Item Value Reference Range Interpretation Comments Coag Index (test code 3.2 1 See_Comment [Auto mated message] The = Coag Index) system which g enerated this result transmit emory reference range : <=3.0. The reference range was not used to interpr et this result as dori l/abnormal. [facility] HospitalXsvjkopCCCELLQMIN7902-32-40 05:21:00 Test Item Value Reference Range Interpretation Comments K-time (test code = K-time) 1.4 min 1.0-3.0 [facility] HospitalUiiuygfXELWJGLRPN0928-85-91 05:21:00 Test Item Value Reference Range Interpretation Comments Angle (test code = Angle) 70.7 degrees 53.0-72.0 [facility] HospitalHzbrtlcGDKWVKAGXU3121-92-90 05:21:00 Test Item Value Reference Range Interpretation Comments Max Amp (test code = Max Amp) 67.8 mm 50.0-70.0 [facility] HospitalNjxuqimHFQGWGYNGG1951-59-25 05:21:00 Test Item Value Reference Range Interpretation Comments R-time (test code = R-time) 3.2 min 5.0-10.0 [facility] HospitalYlubivlKTMWCKVTIW7260-05-23 05:21:00 Test Item Value Reference Range Interpretation Comments TEG Data (test code = See Note (06/27/18 12:21 TEG Data) AM) [facility] HospitalHbebiawMHMBSNPDJS2258-51-14 05:21:00 Test Item Value Reference Range Interpretation Comments INR (test code = INR) 1.05 1 0.85-1.17 [facility] HospitalYojntxuJWTCCNDHQL8034-63-48 05:21:00 Test Item Value Reference Range Interpretation Comments PT (test code = PT) 13.5 s 12.0-14.7 [facility] HospitalGryhbxwWJCWQXYYHI6560-82-98 05:21:00 Test Item Value Reference Range Interpretation Comments PTT (test code = PTT) 33.5 s 22.9-35.8 [facility] HospitalUcswhxwINJMBIQMVB8391-91-87 05:21:00 Test Item Value Reference Range Interpretation Comments MCH (test code = MCH) 30.3 pg 27.0-31.0 [facility] HospitalAbheuajZQMXHIQEET1099-22-69 05:21:00 Test Item Value Reference Range Interpretation Comments MCV (test code = MCV) 90.2 80.0-94.0 [facility] HospitalCtlpiyxVUKSLEIATC0702-96-23 05:21:00 Test Item Value Reference Range Interpretation Comments MPV (test code = MPV) 7.7 7.4-10.4 [facility] HospitalTnlqrkyXPARBRVNFH8090-98-51 05:21:00 Test Item Value Reference Range Interpretation Comments Platelet (test code = Platelet) 190 133-450 [facility] HospitalJxqwodnNIFHTBDAEC0305-80-80 05:21:00 Test Item Value Reference Range Interpretation Comments MCHC (test code = MCHC) 33.5 32.0-36.0 [facility] HospitalKfcryvkLUYWFFVCJQ0825-79-43 05:21:00 Test Item Value Reference Range Interpretation Comments RDW (test code = RDW) 16.1 11.5-14.5 [facility] HospitalGjvlpbcFIDQHXXKWC9606-00-67 05:21:00 Test Item Value Reference Range Interpretation Comments WBC (test code = WBC) 6.3 3.7-10.4 [facility] HospitalWwlzbcvGHIOXSKKZU8411-71-36 05:21:00 Test Item Value Reference Range Interpretation Comments Hgb (test code = Hgb) 13.3 14.0-18.0 [facility] HospitalQrnujosSVRILOWQAJ1385-47-90 05:21:00 Test Item Value Reference Range Interpretation Comments Hct (test code = Hct) 39.6 42.0-54.0 [facility] HospitalVjiyfawOHMIVJDBOF6052-83-74 05:21:00 Test Item Value Reference Range Interpretation Comments RBC (test code = RBC) 4.39 4.70-6.10 [facility]2019-03-20 05:21:00 Test Item Value Reference Range Interpretation Comments Ca Norm WB (test code = Ca Norm WB) 1.12 1.05-1.25 [facility]2019-03-20 05:21:00 Test Item Value Reference Range Interpretation Comments Ca Ion WB (test code = Ca Ion WB) 1.15 1.05-1.25 [facility]2019-03-20 05:21:00 Test Item Value Reference Range Interpretation Comments eGFR (test code = eGFR) 35 [facility]2019-03-20 05:21:00 Test Item Value Reference Range Interpretation Comments Calcium Lvl (test code = Calcium Lvl) 8.7 8.5-10.5 [facility]2019-03-20 05:21:00 Test Item Value Reference Range Interpretation Comments CO2 (test code = CO2) 24 24-32 [facility]2019-03-20 05:21:00 Test Item Value Reference Range Interpretation Comments Sodium Lvl (test code = Sodium Lvl) 144 135-145 [facility]2019-03-20 05:21:00 Test Item Value Reference Range Interpretation Comments Creatinine Lvl (test code = Creatinine 1.85 0.50-1.40 Lvl) [facility]2019-03-20 05:21:00 Test Item Value Reference Range Interpretation Comments Potassium Lvl (test code = Potassium 4.0 3.5-5.1 Lvl) [facility]2019-03-20 05:21:00 Test Item Value Reference Range Interpretation Comments Chloride Lvl (test code = Chloride Lvl) 113 95-109 [facility]2019-03-20 05:21:00 Test Item Value Reference Range Interpretation Comments BUN (test code = BUN) 25 7-22 [facility]2019-03-20 05:21:00 Test Item Value Reference Range Interpretation Comments Glucose Lvl (test code = Glucose Lvl) 88 70-99 [facility]2019-03-20 05:21:00 Test Item Value Reference Range Interpretation Comments AGAP (test code = AGAP) 11.0 10.0-20.0 [facility]2019-03-20 05:21:00 Test Item Value Reference Range Interpretation Comments Phosphorus (test code = Phosphorus) 3.3 2.5-4.5 [facility]2019-03-20 05:21:00 Test Item Value Reference Range Interpretation Comments Magnesium Lvl (test code = Magnesium 2.0 1.8-2.4 Lvl) [facility] HospitalQhgklqnHOZDXXOUFB5096-38-52 05:21:00 Test Item Value Reference Range Interpretation Comments Basophils # (test code 0.1 See_Comment [Aut omated message] The = Basophils #) system which generated this result tra nsmitted reference range : <=0.2. The reference r efren was not used to int erpret this result as normal/abnormal . [facility] HospitalAkijqcyLTOEKIFIQR3766-10-93 05:21:00 Test Item Value Reference Range Interpretation Comments Eosinophils # (test code 0.1 See_Comment [A utomated message] The = Eosinophils #) system whic h generated this result tra nsmitted reference range : <=0.5. The reference r efren was not used to int erpret this result as normal/abnormal . [facility] HospitalCegwpcrBWSVXGBMWE3644-42-69 05:21:00 Test Item Value Reference Range Interpretation Comments Plt Morph (test code = Normal (06/27/18 12:21 Plt Morph) AM) [facility] HospitalXlpdumzSCFNPTBJVG0995-83-44 05:21:00 Test Item Value Reference Range Interpretation Comments Segs (test code = Segs) 64.6 45.0-75.0 [facility] HospitalDjftqcoTEKOKWBPZX8430-63-61 05:21:00 Test Item Value Reference Range Interpretation Comments Lymphocytes (test code = Lymphocytes) 25.7 20.0-40.0 [facility] HospitalKwubrboFMGCEGUVTX0667-90-23 05:21:00 Test Item Value Reference Range Interpretation Comments Eosinophils (test code = 2.0 See_Comment [A utomated message] The Eosinophils) system which ge nerated this result tra nsmitted reference range : <=4.0. The reference r efren was not used to int erpret this result as normal/abnormal . [facility] HospitalHbaxgdiIAKWYDCEKN2713-44-31 05:21:00 Test Item Value Reference Range Interpretation Comments Monocytes (test code = Monocytes) 6.8 2.0-12.0 [facility] HospitalVsfwgvoNJFIJNMBEP9382-43-96 05:21:00 Test Item Value Reference Range Interpretation Comments Neutrophils # (test code = Neutrophils 4.1 1.5-8.1 #) [facility] HospitalIxkauygUGCAOIYAEC4010-69-94 05:21:00 Test Item Value Reference Range Interpretation Comments Basophils (test code = 0.9 See_Comment [Aut omated message] The Basophils) system which ge nerated this result tra nsmitted reference range : <=1.0. The reference r efren was not used to int erpret this result as normal/abnormal . [facility] HospitalYbltjioFJWDFMJHQD8996-50-75 05:21:00 Test Item Value Reference Range Interpretation Comments Monocytes # (test code 0.4 See_Comment [Aut omated message] The = Monocytes #) system which generated this result tra nsmitted reference range : <=0.8. The reference r efren was not used to int erpret this result as normal/abnormal . [facility] HospitalXpmsvoaBKCVMBVYIF9498-87-61 05:21:00 Test Item Value Reference Range Interpretation Comments Lymphocytes # (test code = Lymphocytes 1.6 1.0-5.5 #) [facility] HospitalBqsdnelTRVAYAJTZG2508-54-14 05:21:00 Test Item Value Reference Range Interpretation Comments RBC Morph (test code = Normal (06/27/18 12:21 RBC Morph) AM) [facility] HospitalPoafputZRGSHPSENC1116-62-73 05:21:00 Test Item Value Reference Range Interpretation Comments TEG Interp (test Thrombelastograph results code = TEG show shortened value of R. Interp) This finding is suggestive of enzymatic hypercoagulation. CPT:51644 [facility] HospitalQcuuozqUZBHGCRBWH5003-97-55 05:21:00 Test Item Value Reference Range Interpretation Comments Ly30 (test code = 0.0 See_Comment [Automate d message] The Ly30) system which ge nerated this result transmit emory reference range : <=7.5. The reference range was not used to interpr et this result as dori l/abnormal. [facility] HospitalLghgdefRABCOGQUMK3021-39-58 05:21:00 Test Item Value Reference Range Interpretation Comments G-value (test code = G-value) 10.5 4.5-11.0 [facility] HospitalCjehtmdXLDIUQCKMD2126-70-91 05:21:00 Test Item Value Reference Range Interpretation Comments Coag Index (test code 3.2 1 See_Comment [Auto mated message] The = Coag Index) system which g enerated this result transmit emory reference range : <=3.0. The reference range was not used to interpr et this result as dori l/abnormal. [facility] HospitalVbbrwfeTPPYNVPCNH8602-03-42 05:21:00 Test Item Value Reference Range Interpretation Comments K-time (test code = K-time) 1.4 min 1.0-3.0 [facility] HospitalLquijorXUVURJBMON6957-36-83 05:21:00 Test Item Value Reference Range Interpretation Comments Angle (test code = Angle) 70.7 degrees 53.0-72.0 [facility] HospitalDhbzicqEESYXYONEF8324-50-21 05:21:00 Test Item Value Reference Range Interpretation Comments Max Amp (test code = Max Amp) 67.8 mm 50.0-70.0 [facility] HospitalPskishyEFWMQRKVUH8996-68-20 05:21:00 Test Item Value Reference Range Interpretation Comments R-time (test code = R-time) 3.2 min 5.0-10.0 [facility] HospitalSxnbukwRENDCALKRJ3685-55-96 05:21:00 Test Item Value Reference Range Interpretation Comments TEG Data (test code = See Note (06/27/18 12:21 TEG Data) AM) [facility] HospitalZwcngalDRJJRHCQGY0371-27-26 05:21:00 Test Item Value Reference Range Interpretation Comments INR (test code = INR) 1.05 1 0.85-1.17 [facility] HospitalGawqjgbYGYBBWFDXI7990-37-05 05:21:00 Test Item Value Reference Range Interpretation Comments PT (test code = PT) 13.5 s 12.0-14.7 [facility] HospitalLcqzmqlQIUECZNNXQ9727-60-74 05:21:00 Test Item Value Reference Range Interpretation Comments PTT (test code = PTT) 33.5 s 22.9-35.8 [facility] HospitalHjqeabpIAENBLKJWI7105-07-94 05:21:00 Test Item Value Reference Range Interpretation Comments MCH (test code = MCH) 30.3 pg 27.0-31.0 [facility] HospitalPfoqosjZCYQFOBYGQ7606-40-02 05:21:00 Test Item Value Reference Range Interpretation Comments MCV (test code = MCV) 90.2 80.0-94.0 [facility] HospitalPkxpxftISHYRNZSAY9509-89-28 05:21:00 Test Item Value Reference Range Interpretation Comments MPV (test code = MPV) 7.7 7.4-10.4 [facility] HospitalDtwjmhaCWJEISIUHS6564-46-60 05:21:00 Test Item Value Reference Range Interpretation Comments Platelet (test code = Platelet) 190 133-450 [facility] HospitalRqazefnPNFVNAKQDV0085-36-94 05:21:00 Test Item Value Reference Range Interpretation Comments MCHC (test code = MCHC) 33.5 32.0-36.0 [facility] HospitalIxlvduzAKMTWHWSJN4953-06-12 05:21:00 Test Item Value Reference Range Interpretation Comments RDW (test code = RDW) 16.1 11.5-14.5 [facility] HospitalLsgfubdSIIKVUIRRK9948-54-55 05:21:00 Test Item Value Reference Range Interpretation Comments WBC (test code = WBC) 6.3 3.7-10.4 [facility] HospitalSztnycpTVHKVINDLJ9830-27-98 05:21:00 Test Item Value Reference Range Interpretation Comments Hgb (test code = Hgb) 13.3 14.0-18.0 [facility] HospitalFcgajboQUDSCWHTMX2698-25-49 05:21:00 Test Item Value Reference Range Interpretation Comments Hct (test code = Hct) 39.6 42.0-54.0 [facility] HospitalNqhuefmFVSSAHPYDW5724-21-55 05:21:00 Test Item Value Reference Range Interpretation Comments RBC (test code = RBC) 4.39 4.70-6.10 [facility]ATH[facility] BHDEDTX9638-57-20 05:21:00 Test Item Value Reference Range Interpretation Comments Ca Norm WB (test code = Ca Norm WB) 1.12 1.05-1.25 [facility] HospitalATHYROID CAZQSXR1251-40-95 05:21:00 Test Item Value Reference Range Interpretation Comments Ca Ion WB (test code = Ca Ion WB) 1.15 1.05-1.25 [facility] VXPAH9025-42-14 05:21:00 Test Item Value Reference Range Interpretation Comments eGFR (test code = eGFR) 35 [facility]2019-03-20 05:21:00 Test Item Value Reference Range Interpretation Comments Calcium Lvl (test code = Calcium Lvl) 8.7 8.5-10.5 [facility]2019-03-20 05:21:00 Test Item Value Reference Range Interpretation Comments CO2 (test code = CO2) 24 24-32 [facility]2019-03-20 05:21:00 Test Item Value Reference Range Interpretation Comments Sodium Lvl (test code = Sodium Lvl) 144 135-145 [facility]2019-03-20 05:21:00 Test Item Value Reference Range Interpretation Comments Creatinine Lvl (test code = Creatinine 1.85 0.50-1.40 Lvl) [facility]2019-03-20 05:21:00 Test Item Value Reference Range Interpretation Comments Potassium Lvl (test code = Potassium 4.0 3.5-5.1 Lvl) [facility]2019-03-20 05:21:00 Test Item Value Reference Range Interpretation Comments Chloride Lvl (test code = Chloride Lvl) 113 95-109 [facility]2019-03-20 05:21:00 Test Item Value Reference Range Interpretation Comments BUN (test code = BUN) 25 7-22 [facility]2019-03-20 05:21:00 Test Item Value Reference Range Interpretation Comments Glucose Lvl (test code = Glucose Lvl) 88 70-99 [facility]2019-03-20 05:21:00 Test Item Value Reference Range Interpretation Comments AGAP (test code = AGAP) 11.0 10.0-20.0 [facility]2019-03-20 05:21:00 Test Item Value Reference Range Interpretation Comments Phosphorus (test code = Phosphorus) 3.3 2.5-4.5 [facility]2019-03-20 05:21:00 Test Item Value Reference Range Interpretation Comments Magnesium Lvl (test code = Magnesium 2.0 1.8-2.4 Lvl) [facility]XmtukyoJOWEWAIMMF9493-80-53 05:21:00 Test Item Value Reference Range Interpretation Comments Basophils # (test code 0.1 See_Comment [Aut omated message] The = Basophils #) system which generated this result tra nsmitted reference range : <=0.2. The reference r efren was not used to int erpret this result as normal/abnormal . [facility] HospitalHvkrcctGHCZBOXEMK7363-93-80 05:21:00 Test Item Value Reference Range Interpretation Comments Eosinophils # (test code 0.1 See_Comment [A utomated message] The = Eosinophils #) system whic h generated this result tra nsmitted reference range : <=0.5. The reference r efren was not used to int erpret this result as normal/abnormal . [facility] HospitalOgvowypZTYFBBGXYK8215-76-54 05:21:00 Test Item Value Reference Range Interpretation Comments Plt Morph (test code = Normal (06/27/18 12:21 Plt Morph) AM) [facility] HospitalWyygslmLVHKQUXYSI8204-76-34 05:21:00 Test Item Value Reference Range Interpretation Comments Segs (test code = Segs) 64.6 45.0-75.0 [facility] HospitalDjdtzbnJQCKWKQPXA5818-22-26 05:21:00 Test Item Value Reference Range Interpretation Comments Lymphocytes (test code = Lymphocytes) 25.7 20.0-40.0 [facility] HospitalFydrfciMIMJOPYJQC6183-34-98 05:21:00 Test Item Value Reference Range Interpretation Comments Eosinophils (test code = 2.0 See_Comment [A utomated message] The Eosinophils) system which ge nerated this result tra nsmitted reference range : <=4.0. The reference r efren was not used to int erpret this result as normal/abnormal . [facility] HospitalBjrvfldBQQWXUMIHU6573-63-40 05:21:00 Test Item Value Reference Range Interpretation Comments Monocytes (test code = Monocytes) 6.8 2.0-12.0 [facility] HospitalNgrwxoaLWPHELFHST2333-62-99 05:21:00 Test Item Value Reference Range Interpretation Comments Neutrophils # (test code = Neutrophils 4.1 1.5-8.1 #) [facility] HospitalAlpzvyfAQDAWQUQNB0086-17-03 05:21:00 Test Item Value Reference Range Interpretation Comments Basophils (test code = 0.9 See_Comment [Aut omated message] The Basophils) system which ge nerated this result tra nsmitted reference range : <=1.0. The reference r efren was not used to int erpret this result as normal/abnormal . [facility] HospitalRfraxbnWRIHCNHXLD3698-19-24 05:21:00 Test Item Value Reference Range Interpretation Comments Monocytes # (test code 0.4 See_Comment [Aut omated message] The = Monocytes #) system which generated this result tra nsmitted reference range : <=0.8. The reference r efren was not used to int erpret this result as normal/abnormal . [facility] HospitalVjyajccUPMVEFORIZ1065-33-21 05:21:00 Test Item Value Reference Range Interpretation Comments Lymphocytes # (test code = Lymphocytes 1.6 1.0-5.5 #) [facility] HospitalShhredfVNMJPFPXMR0477-41-27 05:21:00 Test Item Value Reference Range Interpretation Comments RBC Morph (test code = Normal (06/27/18 12:21 RBC Morph) AM) [facility] HospitalWevhdulLWDBSAAIFU0271-29-12 05:21:00 Test Item Value Reference Range Interpretation Comments TEG Interp (test Thrombelastograph results code = TEG show shortened value of R. Interp) This finding is suggestive of enzymatic hypercoagulation. CPT:24369 [facility] HospitalFstztxxUIFNOJJSKE8088-99-54 05:21:00 Test Item Value Reference Range Interpretation Comments Ly30 (test code = 0.0 See_Comment [Automate d message] The Ly30) system which ge nerated this result transmit emory reference range : <=7.5. The reference range was not used to interpr et this result as dori l/abnormal. [id number] 05:21:00 Test Item Value Reference Range Interpretation Comments G-value (test code = G-value) 10.5 4.5-11.0 [facility] HospitalLjrrpwfMFGQBYRAXN5494-66-89 05:21:00 Test Item Value Reference Range Interpretation Comments Coag Index (test code 3.2 1 See_Comment [Auto mated message] The = Coag Index) system which g enerated this result transmit emory reference range : <=3.0. The reference range was not used to interpr et this result as dori l/abnormal. [facility] H[id number] 05:21:00 Test Item Value Reference Range Interpretation Comments K-time (test code = K-time) 1.4 min 1.0-3.0 [facility] HospitalZtvwjgbCLKILIAHWY4269-93-07 05:21:00 Test Item Value Reference Range Interpretation Comments Angle (test code = Angle) 70.7 degrees 53.0-72.0 [facility] Hos[id number] 05:21:00 Test Item Value Reference Range Interpretation Comments Max Amp (test code = Max Amp) 67.8 mm 50.0-70.0 [facility] HospitalYshoivvOONILDWXHB6208-28-37 05:21:00 Test Item Value Reference Range Interpretation Comments R-time (test code = R-time) 3.2 min 5.0-10.0 [facility] HospitalLlyibfmAUBFIGWKMH2108-01-26 05:21:00 Test Item Value Reference Range Interpretation Comments TEG Data (test code = See Note (06/27/18 12:21 TEG Data) AM) [facility] HospitalUgvnnjmLANMDPXPUQ6019-28-92 05:21:00 Test Item Value Reference Range Interpretation Comments INR (test code = INR) 1.05 1 0.85-1.17 [facility] HospitalVvfigkhKYHJLZXSLQ5208-15-98 05:21:00 Test Item Value Reference Range Interpretation Comments PT (test code = PT) 13.5 s 12.0-14.7 [facility] HospitalTswmykoKMLGBPESZX8440-34-52 05:21:00 Test Item Value Reference Range Interpretation Comments PTT (test code = PTT) 33.5 s 22.9-35.8 [facility] HospitalWfdnsjsOAVODRERFZ0996-77-53 05:21:00 Test Item Value Reference Range Interpretation Comments MCH (test code = MCH) 30.3 pg 27.0-31.0 [facility] HospitalLtamtoeMYZCIYUSIR9167-79-47 05:21:00 Test Item Value Reference Range Interpretation Comments MCV (test code = MCV) 90.2 80.0-94.0 [facility] HospitalKhdwximHKZNYYCEFN1474-63-82 05:21:00 Test Item Value Reference Range Interpretation Comments MPV (test code = MPV) 7.7 7.4-10.4 [facility] HospitalSczsgvpXWYLNTSMSS8093-47-03 05:21:00 Test Item Value Reference Range Interpretation Comments Platelet (test code = Platelet) 190 133-450 [facility] H[id number] 05:21:00 Test Item Value Reference Range Interpretation Comments MCHC (test code = MCHC) 33.5 32.0-36.0 [facility] HospitalQaxhhgvBLLRBDZJPT7465-08-63 05:21:00 Test Item Value Reference Range Interpretation Comments RDW (test code = RDW) 16.1 11.5-14.5 [facility] HospitalAyveljuPXWNKCIKVE0423-04-20 05:21:00 Test Item Value Reference Range Interpretation Comments WBC (test code = WBC) 6.3 3.7-10.4 [facility] HospitalZxsdyzgRNZSUFJJHP6561-04-39 05:21:00 Test Item Value Reference Range Interpretation Comments Hgb (test code = Hgb) 13.3 14.0-18.0 [facility] HospitalRcgumahIDZKOXIJEU0335-01-40 05:21:00 Test Item Value Reference Range Interpretation Comments Hct (test code = Hct) 39.6 42.0-54.0 [facility] HospitalMgtovkrLQCIAGVQYY1893-71-47 05:21:00 Test Item Value Reference Range Interpretation Comments RBC (test code = RBC) 4.39 4.70-6.10 [facility]2019-03-20 05:21:00 Test Item Value Reference Range Interpretation Comments Ca Norm WB (test code = Ca Norm WB) 1.12 1.05-1.25 [facility]2019-03-20 05:21:00 Test Item Value Reference Range Interpretation Comments Ca Ion WB (test code = Ca Ion WB) 1.15 1.05-1.25 [facility]2019-03-19 13:36:00 Test Item Value Reference Range Interpretation Comments Bili Total (test code = Bili Total) 0.7 0.2-1.3 [facility]2019-03-19 13:36:00 Test Item Value Reference Range Interpretation Comments Alk Phos (test code = Alk Phos) 80 39-136 [facility]2019-03-19 13:36:00 Test Item Value Reference Range Interpretation Comments Albumin Lvl (test code = Albumin Lvl) 2.6 3.5-5.0 [facility]2019-03-19 13:36:00 Test Item Value Reference Range Interpretation Comments Globulin (test code = Globulin) 3.4 2.7-4.2 [facility]2019-03-19 13:36:00 Test Item Value Reference Range Interpretation Comments A/G Ratio (test code = A/G Ratio) 0.8 1 0.7-1.6 [facility]2019-03-19 13:36:00 Test Item Value Reference Range Interpretation Comments ALT (test code = ALT) 16 See_Comment [Auto mated message] The system which ge nerated this result transmit emory reference range : <=65. The reference range was not used to interpr et this result as dori l/abnormal. [facility] [id number] 13:36:00 Test Item Value Reference Range Interpretation Comments AST (test code = AST) 13 See_Comment [Auto mated message] The system which ge nerated this result transmit emory reference range : <=37. The reference range was not used to interpr et this result as dori l/abnormal. [facility] [id number] 13:36:00 Test Item Value Reference Range Interpretation Comments B/C Ratio (test code = B/C Ratio) 15 1 6-25 [facility] [id number] 13:36:00 Test Item Value Reference Range Interpretation Comments Total Protein (test code = Total 6.0 6.4-8.4 Protein) [id number] 13:36:00 Test Item Value Reference Range Interpretation Comments Rapamycin Lvl (test code = Rapamycin 3.9 5.0-15.0 Lvl) [facility] [id number] 13:36:00 Test Item Value Reference Range Interpretation Comments Bili Total (test code = Bili Total) 0.7 0.2-1.3 [facility] [id number] 13:36:00 Test Item Value Reference Range Interpretation Comments Alk Phos (test code = Alk Phos) 80 39-136 [facility] [id number] 13:36:00 Test Item Value Reference Range Interpretation Comments Albumin Lvl (test code = Albumin Lvl) 2.6 3.5-5.0 [facility] [id number] 13:36:00 Test Item Value Reference Range Interpretation Comments Globulin (test code = Globulin) 3.4 2.7-4.2 [facility] [id number] 13:36:00 Test Item Value Reference Range Interpretation Comments A/G Ratio (test code = A/G Ratio) 0.8 1 0.7-1.6 [facility] [id number] 13:36:00 Test Item Value Reference Range Interpretation Comments ALT (test code = ALT) 16 See_Comment [Auto mated message] The system which ge nerated this result transmit emory reference range : <=65. The reference range was not used to interpr et this result as dori l/abnormal. [facility] [id number] 13:36:00 Test Item Value Reference Range Interpretation Comments AST (test code = AST) 13 See_Comment [Auto mated message] The system which ge nerated this result transmit emory reference range : <=37. The reference range was not used to interpr et this result as dori l/abnormal. [facility] [id number] 13:36:00 Test Item Value Reference Range Interpretation Comments B/C Ratio (test code = B/C Ratio) 15 1 6-25 [facility] [id number] 13:36:00 Test Item Value Reference Range Interpretation Comments Total Protein (test code = Total 6.0 6.4-8.4 Protein) [facility] [id number] 13:36:00 Test Item Value Reference Range Interpretation Comments Rapamycin Lvl (test code = Rapamycin 3.9 5.0-15.0 Lvl) [facility] [id number] 13:36:00 Test Item Value Reference Range Interpretation Comments Bili Total (test code = Bili Total) 0.7 0.2-1.3 [facility]2019-03-19 13:36:00 Test Item Value Reference Range Interpretation Comments Alk Phos (test code = Alk Phos) 80 39-136 [facility]2019-03-19 13:36:00 Test Item Value Reference Range Interpretation Comments Albumin Lvl (test code = Albumin Lvl) 2.6 3.5-5.0 [facility] [id number] 13:36:00 Test Item Value Reference Range Interpretation Comments Globulin (test code = Globulin) 3.4 2.7-4.2 [facility] [id number] 13:36:00 Test Item Value Reference Range Interpretation Comments A/G Ratio (test code = A/G Ratio) 0.8 1 0.7-1.6 [facility] [id number] 13:36:00 Test Item Value Reference Range Interpretation Comments ALT (test code = ALT) 16 See_Comment [Auto mated message] The system which ge nerated this result transmit emory reference range : <=65. The reference range was not used to interpr et this result as dori l/abnormal. [facility]2019-03-19 13:36:00 Test Item Value Reference Range Interpretation Comments AST (test code = AST) 13 See_Comment [Auto mated message] The system which ge nerated this result transmit emory reference range : <=37. The reference range was not used to interpr et this result as dori l/abnormal. [facility]2019-03-19 13:36:00 Test Item Value Reference Range Interpretation Comments B/C Ratio (test code = B/C Ratio) 15 1 6-25 [facility]2019-03-19 13:36:00 Test Item Value Reference Range Interpretation Comments Total Protein (test code = Total 6.0 6.4-8.4 Protein) [facility] [id number] 13:36:00 Test Item Value Reference Range Interpretation Comments Rapamycin Lvl (test code = Rapamycin 3.9 5.0-15.0 Lvl) [facility]2019-03-19 13:36:00 Test Item Value Reference Range Interpretation Comments Bili Total (test code = Bili Total) 0.7 0.2-1.3 [facility]2019-03-19 13:36:00 Test Item Value Reference Range Interpretation Comments Alk Phos (test code = Alk Phos) 80 39-136 [facility]2019-03-19 13:36:00 Test Item Value Reference Range Interpretation Comments Albumin Lvl (test code = Albumin Lvl) 2.6 3.5-5.0 [facility]2019-03-19 13:36:00 Test Item Value Reference Range Interpretation Comments Globulin (test code = Globulin) 3.4 2.7-4.2 [facility]2019-03-19 13:36:00 Test Item Value Reference Range Interpretation Comments A/G Ratio (test code = A/G Ratio) 0.8 1 0.7-1.6 [facility]2019-03-19 13:36:00 Test Item Value Reference Range Interpretation Comments ALT (test code = ALT) 16 See_Comment [Auto mated message] The system which ge nerated this result transmit emory reference range : <=65. The reference range was not used to interpr et this result as dori l/abnormal. [facility]2019-03-19 13:36:00 Test Item Value Reference Range Interpretation Comments AST (test code = AST) 13 See_Comment [Auto mated message] The system which ge nerated this result transmit emory reference range : <=37. The reference range was not used to interpr et this result as dori l/abnormal. [facility]2019-03-19 13:36:00 Test Item Value Reference Range Interpretation Comments B/C Ratio (test code = B/C Ratio) 15 1 6-25 [facility]2019-03-19 13:36:00 Test Item Value Reference Range Interpretation Comments Total Protein (test code = Total 6.0 6.4-8.4 Protein) [facility] [id number] 13:36:00 Test Item Value Reference Range Interpretation Comments Rapamycin Lvl (test code = Rapamycin 3.9 5.0-15.0 Lvl) [facility]2019-03-19 13:36:00 Test Item Value Reference Range Interpretation Comments Bili Total (test code = Bili Total) 0.7 0.2-1.3 [facility]2019-03-19 13:36:00 Test Item Value Reference Range Interpretation Comments Alk Phos (test code = Alk Phos) 80 39-136 [facility]2019-03-19 13:36:00 Test Item Value Reference Range Interpretation Comments Albumin Lvl (test code = Albumin Lvl) 2.6 3.5-5.0 [facility]2019-03-19 13:36:00 Test Item Value Reference Range Interpretation Comments Globulin (test code = Globulin) 3.4 2.7-4.2 [facility]2019-03-19 13:36:00 Test Item Value Reference Range Interpretation Comments A/G Ratio (test code = A/G Ratio) 0.8 1 0.7-1.6 [facility]2019-03-19 13:36:00 Test Item Value Reference Range Interpretation Comments ALT (test code = ALT) 16 See_Comment [Auto mated message] The system which ge nerated this result transmit emory reference range : <=65. The reference range was not used to interpr et this result as dori l/abnormal. [facility]2019-03-19 13:36:00 Test Item Value Reference Range Interpretation Comments AST (test code = AST) 13 See_Comment [Auto mated message] The system which ge nerated this result transmit emory reference range : <=37. The reference range was not used to interpr et this result as dori l/abnormal. [facility]2019-03-19 13:36:00 Test Item Value Reference Range Interpretation Comments B/C Ratio (test code = B/C Ratio) 15 1 6-25 [facility]2019-03-19 13:36:00 Test Item Value Reference Range Interpretation Comments Total Protein (test code = Total 6.0 6.4-8.4 Protein) [facility] [id number] 13:36:00 Test Item Value Reference Range Interpretation Comments Rapamycin Lvl (test code = Rapamycin 3.9 5.0-15.0 Lvl) [facility]2019-03-19 13:36:00 Test Item Value Reference Range Interpretation Comments Bili Total (test code = Bili Total) 0.7 0.2-1.3 [facility]2019-03-19 13:36:00 Test Item Value Reference Range Interpretation Comments Alk Phos (test code = Alk Phos) 80 39-136 [facility]2019-03-19 13:36:00 Test Item Value Reference Range Interpretation Comments Albumin Lvl (test code = Albumin Lvl) 2.6 3.5-5.0 [facility]2019-03-19 13:36:00 Test Item Value Reference Range Interpretation Comments Globulin (test code = Globulin) 3.4 2.7-4.2 [facility]2019-03-19 13:36:00 Test Item Value Reference Range Interpretation Comments A/G Ratio (test code = A/G Ratio) 0.8 1 0.7-1.6 [facility]2019-03-19 13:36:00 Test Item Value Reference Range Interpretation Comments ALT (test code = ALT) 16 See_Comment [Auto mated message] The system which ge nerated this result transmit emory reference range : <=65. The reference range was not used to interpr et this result as dori l/abnormal. [facility]2019-03-19 13:36:00 Test Item Value Reference Range Interpretation Comments AST (test code = AST) 13 See_Comment [Auto mated message] The system which ge nerated this result transmit emory reference range : <=37. The reference range was not used to interpr et this result as dori l/abnormal. [facility]2019-03-19 13:36:00 Test Item Value Reference Range Interpretation Comments B/C Ratio (test code = B/C Ratio) 15 1 6-25 [facility]2019-03-19 13:36:00 Test Item Value Reference Range Interpretation Comments Total Protein (test code = Total 6.0 6.4-8.4 Protein) [facility] CenterUvxhgckBODBRRWZNN0507-03-13 13:36:00 Test Item Value Reference Range Interpretation Comments Rapamycin Lvl (test code = Rapamycin 3.9 5.0-15.0 Lvl) [facility]2019-03-19 13:36:00 Test Item Value Reference Range Interpretation Comments Bili Total (test code = Bili Total) 0.7 0.2-1.3 [facility]2019-03-19 13:36:00 Test Item Value Reference Range Interpretation Comments Alk Phos (test code = Alk Phos) 80 39-136 [facility]2019-03-19 13:36:00 Test Item Value Reference Range Interpretation Comments Albumin Lvl (test code = Albumin Lvl) 2.6 3.5-5.0 [facility]2019-03-19 13:36:00 Test Item Value Reference Range Interpretation Comments Globulin (test code = Globulin) 3.4 2.7-4.2 [facility]2019-03-19 13:36:00 Test Item Value Reference Range Interpretation Comments A/G Ratio (test code = A/G Ratio) 0.8 1 0.7-1.6 [facility]2019-03-19 13:36:00 Test Item Value Reference Range Interpretation Comments ALT (test code = ALT) 16 See_Comment [Auto mated message] The system which ge nerated this result transmit emory reference range : <=65. The reference range was not used to interpr et this result as dori l/abnormal. [facility] [id number] 13:36:00 Test Item Value Reference Range Interpretation Comments AST (test code = AST) 13 See_Comment [Auto mated message] The system which ge nerated this result transmit emory reference range : <=37. The reference range was not used to interpr et this result as dori l/abnormal. [facility] [id number] 13:36:00 Test Item Value Reference Range Interpretation Comments B/C Ratio (test code = B/C Ratio) 15 1 6-25 [facility] [id number] 13:36:00 Test Item Value Reference Range Interpretation Comments Total Protein (test code = Total 6.0 6.4-8.4 Protein) [facility] [id number] 13:36:00 Test Item Value Reference Range Interpretation Comments Rapamycin Lvl (test code = Rapamycin 3.9 5.0-15.0 Lvl) [facility] [id number] 13:36:00 Test Item Value Reference Range Interpretation Comments Bili Total (test code = Bili Total) 0.7 0.2-1.3 [facility] [id number] 13:36:00 Test Item Value Reference Range Interpretation Comments Alk Phos (test code = Alk Phos) 80 39-136 [facility] [id number] 13:36:00 Test Item Value Reference Range Interpretation Comments Albumin Lvl (test code = Albumin Lvl) 2.6 3.5-5.0 [facility] [id number] 13:36:00 Test Item Value Reference Range Interpretation Comments Globulin (test code = Globulin) 3.4 2.7-4.2 [facility] [id number] 13:36:00 Test Item Value Reference Range Interpretation Comments A/G Ratio (test code = A/G Ratio) 0.8 1 0.7-1.6 [facility] [id number] 13:36:00 Test Item Value Reference Range Interpretation Comments ALT (test code = ALT) 16 See_Comment [Auto mated message] The system which ge nerated this result transmit emory reference range : <=65. The reference range was not used to interpr et this result as dori l/abnormal. [facility] [id number] 13:36:00 Test Item Value Reference Range Interpretation Comments AST (test code = AST) 13 See_Comment [Auto mated message] The system which ge nerated this result transmit emory reference range : <=37. The reference range was not used to interpr et this result as dori l/abnormal. [facility]2019-03-19 13:36:00 Test Item Value Reference Range Interpretation Comments B/C Ratio (test code = B/C Ratio) 15 1 6-25 [facility] [id number] 13:36:00 Test Item Value Reference Range Interpretation Comments Total Protein (test code = Total 6.0 6.4-8.4 Protein) [facility] [id number] 13:36:00 Test Item Value Reference Range Interpretation Comments Rapamycin Lvl (test code = Rapamycin 3.9 5.0-15.0 Lvl) [facility]2019-03-19 13:36:00 Test Item Value Reference Range Interpretation Comments Bili Total (test code = Bili Total) 0.7 0.2-1.3 [facility] [id number] 13:36:00 Test Item Value Reference Range Interpretation Comments Alk Phos (test code = Alk Phos) 80 39-136 [facility]2019-03-19 13:36:00 Test Item Value Reference Range Interpretation Comments Albumin Lvl (test code = Albumin Lvl) 2.6 3.5-5.0 [facility] HospitalEcometricaATRI[facility] HE[facility] [id number] 13:36:00 Test Item Value Reference Range Interpretation Comments Globulin (test code = Globulin) 3.4 2.7-4.2 [facility] [id number] 13:36:00 Test Item Value Reference Range Interpretation Comments A/G Ratio (test code = A/G Ratio) 0.8 1 0.7-1.6 [facility]2019-03-19 13:36:00 Test Item Value Reference Range Interpretation Comments ALT (test code = ALT) 16 See_Comment [Auto mated message] The system which ge nerated this result transmit emory reference range : <=65. The reference range was not used to interpr et this result as dori l/abnormal. [facility]2019-03-19 13:36:00 Test Item Value Reference Range Interpretation Comments AST (test code = AST) 13 See_Comment [Auto mated message] The system which ge nerated this result transmit emory reference range : <=37. The reference range was not used to interpr et this result as dori l/abnormal. [facility]2019-03-19 13:36:00 Test Item Value Reference Range Interpretation Comments B/C Ratio (test code = B/C Ratio) 15 1 6-25 [facility]2019-03-19 13:36:00 Test Item Value Reference Range Interpretation Comments Total Protein (test code = Total 6.0 6.4-8.4 Protein) [facility] CenterBnnwtbhUEESMHVSRC2519-14-33 13:36:00 Test Item Value Reference Range Interpretation Comments Rapamycin Lvl (test code = Rapamycin 3.9 5.0-15.0 Lvl) [facility]2019-03-19 13:36:00 Test Item Value Reference Range Interpretation Comments Bili Total (test code = Bili Total) 0.7 0.2-1.3 [facility]2019-03-19 13:36:00 Test Item Value Reference Range Interpretation Comments Alk Phos (test code = Alk Phos) 80 39-136 [facility]2019-03-19 13:36:00 Test Item Value Reference Range Interpretation Comments Albumin Lvl (test code = Albumin Lvl) 2.6 3.5-5.0 [facility]2019-03-19 13:36:00 Test Item Value Reference Range Interpretation Comments Globulin (test code = Globulin) 3.4 2.7-4.2 [facility]2019-03-19 13:36:00 Test Item Value Reference Range Interpretation Comments A/G Ratio (test code = A/G Ratio) 0.8 1 0.7-1.6 [facility]2019-03-19 13:36:00 Test Item Value Reference Range Interpretation Comments ALT (test code = ALT) 16 See_Comment [Auto mated message] The system which ge nerated this result transmit emory reference range : <=65. The reference range was not used to interpr et this result as dori l/abnormal. [facility] [id number] 13:36:00 Test Item Value Reference Range Interpretation Comments AST (test code = AST) 13 See_Comment [Auto mated message] The system which ge nerated this result transmit emory reference range : <=37. The reference range was not used to interpr et this result as dori l/abnormal. [facility] [id number] 13:36:00 Test Item Value Reference Range Interpretation Comments B/C Ratio (test code = B/C Ratio) 15 1 6-25 [facility] [facility] [id number] 13:36:00 Test Item Value Reference Range Interpretation Comments Total Protein (test code = Total 6.0 6.4-8.4 Protein) [id number] 13:36:00 Test Item Value Reference Range Interpretation Comments Rapamycin Lvl (test code = Rapamycin 3.9 5.0-15.0 Lvl) [facility]2019-03-19 13:36:00 Test Item Value Reference Range Interpretation Comments Bili Total (test code = Bili Total) 0.7 0.2-1.3 [facility] [id number] 13:36:00 Test Item Value Reference Range Interpretation Comments Alk Phos (test code = Alk Phos) 80 39-136 [facility] [id number] 13:36:00 Test Item Value Reference Range Interpretation Comments Albumin Lvl (test code = Albumin Lvl) 2.6 3.5-5.0 [facility] [id number] 13:36:00 Test Item Value Reference Range Interpretation Comments Globulin (test code = Globulin) 3.4 2.7-4.2 [facility] [id number] 13:36:00 Test Item Value Reference Range Interpretation Comments A/G Ratio (test code = A/G Ratio) 0.8 1 0.7-1.6 [facility] [id number] 13:36:00 Test Item Value Reference Range Interpretation Comments ALT (test code = ALT) 16 See_Comment [Auto mated message] The system which ge nerated this result transmit emory reference range : <=65. The reference range was not used to interpr et this result as dori l/abnormal. [facility] [id number] 13:36:00 Test Item Value Reference Range Interpretation Comments AST (test code = AST) 13 See_Comment [Auto mated message] The system which ge nerated this result transmit emory reference range : <=37. The reference range was not used to interpr et this result as dori l/abnormal. [facility] [id number] 13:36:00 Test Item Value Reference Range Interpretation Comments B/C Ratio (test code = B/C Ratio) 15 1 6-25 [facility] [id number] 13:36:00 Test Item Value Reference Range Interpretation Comments Total Protein (test code = Total 6.0 6.4-8.4 Protein) [facility] [id number] 13:36:00 Test Item Value Reference Range Interpretation Comments Rapamycin Lvl (test code = Rapamycin 3.9 5.0-15.0 Lvl) [facility] [id number] 13:36:00 Test Item Value Reference Range Interpretation Comments Bili Total (test code = Bili Total) 0.7 0.2-1.3 [facility] [id number] 13:36:00 Test Item Value Reference Range Interpretation Comments Alk Phos (test code = Alk Phos) 80 39-136 [facility] [id number] 13:36:00 Test Item Value Reference Range Interpretation Comments Albumin Lvl (test code = Albumin Lvl) 2.6 3.5-5.0 [facility] [id number] 13:36:00 Test Item Value Reference Range Interpretation Comments Globulin (test code = Globulin) 3.4 2.7-4.2 [facility] [id number] 13:36:00 Test Item Value Reference Range Interpretation Comments A/G Ratio (test code = A/G Ratio) 0.8 1 0.7-1.6 [facility] [id number] 13:36:00 Test Item Value Reference Range Interpretation Comments ALT (test code = ALT) 16 See_Comment [Auto mated message] The system which ge nerated this result transmit emory reference range : <=65. The reference range was not used to interpr et this result as dori l/abnormal. [facility] [employer] [id number] 13:36:00 Test Item Value Reference Range Interpretation Comments AST (test code = AST) 13 See_Comment [Auto mated message] The system which ge nerated this result transmit emory reference range : <=37. The reference range was not used to interpr et this result as dori l/abnormal. [facility] Center[facility] [id number] 13:36:00 Test Item Value Reference Range Interpretation Comments B/C Ratio (test code = B/C Ratio) 15 1 6-25 [facility]2019-03-19 13:36:00 Test Item Value Reference Range Interpretation Comments Total Protein (test code = Total 6.0 6.4-8.4 Protein) [facility] [id number] 13:36:00 Test Item Value Reference Range Interpretation Comments Rapamycin Lvl (test code = Rapamycin 3.9 5.0-15.0 Lvl) [facility]2019-03-19 13:36:00 Test Item Value Reference Range Interpretation Comments Bili Total (test code = Bili Total) 0.7 0.2-1.3 [facility] [id number] 13:36:00 Test Item Value Reference Range Interpretation Comments Alk Phos (test code = Alk Phos) 80 39-136 [facility]2019-03-19 13:36:00 Test Item Value Reference Range Interpretation Comments Albumin Lvl (test code = Albumin Lvl) 2.6 3.5-5.0 [facility]2019-03-19 13:36:00 Test Item Value Reference Range Interpretation Comments Globulin (test code = Globulin) 3.4 2.7-4.2 [facility] CenterH[facility] [id number] 13:36:00 Test Item Value Reference Range Interpretation Comments A/G Ratio (test code = A/G Ratio) 0.8 1 0.7-1.6 [facility]2019-03-19 13:36:00 Test Item Value Reference Range Interpretation Comments ALT (test code = ALT) 16 See_Comment [Auto mated message] The system which ge nerated this result transmit emory reference range : <=65. The reference range was not used to interpr et this result as dori l/abnormal. [facility] [id number] 13:36:00 Test Item Value Reference Range Interpretation Comments AST (test code = AST) 13 See_Comment [Auto mated message] The system which ge nerated this result transmit emory reference range : <=37. The reference range was not used to interpr et this result as dori l/abnormal. [facility] CenterH[facility] [id number] 13:36:00 Test Item Value Reference Range Interpretation Comments B/C Ratio (test code = B/C Ratio) 15 1 6-25 [facility]2019-03-19 13:36:00 Test Item Value Reference Range Interpretation Comments Total Protein (test code = Total 6.0 6.4-8.4 Protein) [facility] [id number] 13:36:00 Test Item Value Reference Range Interpretation Comments Rapamycin Lvl (test code = Rapamycin 3.9 5.0-15.0 Lvl) [facility]2019-03-19 13:36:00 Test Item Value Reference Range Interpretation Comments Bili Total (test code = Bili Total) 0.7 0.2-1.3 [facility]2019-03-19 13:36:00 Test Item Value Reference Range Interpretation Comments Alk Phos (test code = Alk Phos) 80 39-136 [facility]2019-03-19 13:36:00 Test Item Value Reference Range Interpretation Comments Albumin Lvl (test code = Albumin Lvl) 2.6 3.5-5.0 [facility]2019-03-19 13:36:00 Test Item Value Reference Range Interpretation Comments Globulin (test code = Globulin) 3.4 2.7-4.2 [facility]2019-03-19 13:36:00 Test Item Value Reference Range Interpretation Comments A/G Ratio (test code = A/G Ratio) 0.8 1 0.7-1.6 [facility]2019-03-19 13:36:00 Test Item Value Reference Range Interpretation Comments ALT (test code = ALT) 16 See_Comment [Auto mated message] The system which ge nerated this result transmit emory reference range : <=65. The reference range was not used to interpr et this result as dori l/abnormal. [facility] [id number] 13:36:00 Test Item Value Reference Range Interpretation Comments AST (test code = AST) 13 See_Comment [Auto mated message] The system which ge nerated this result transmit emory reference range : <=37. The reference range was not used to interpr et this result as dori l/abnormal. [facility] [id number] 13:36:00 Test Item Value Reference Range Interpretation Comments B/C Ratio (test code = B/C Ratio) 15 1 6-25 [facility] [id number] 13:36:00 Test Item Value Reference Range Interpretation Comments Total Protein (test code = Total 6.0 6.4-8.4 Protein) [facility] [id number] 13:36:00 Test Item Value Reference Range Interpretation Comments Rapamycin Lvl (test code = Rapamycin 3.9 5.0-15.0 Lvl) [facility] HospitalannBACTERIAL - [id number] 10:59:00 Test Item Value Reference Range Interpretation Comments MRSA by PCR (test Negative (06/26/18 5:59 code = MRSA by PCR) AM) [facility] CenterBACT[facility] - [id number] 10:59:00 Test Item Value Reference Range Interpretation Comments MRSA by PCR (test Negative (06/26/18 5:59 code = MRSA by PCR) AM) [facility] CenterBACT[facility] - [id number] 10:59:00 Test Item Value Reference Range Interpretation Comments MRSA by PCR (test Negative (06/26/18 5:59 code = MRSA by PCR) AM) [facility] CenterBACT[facility] - [id number] 10:59:00 Test Item Value Reference Range Interpretation Comments MRSA by PCR (test Negative (06/26/18 5:59 code = MRSA by PCR) AM) [facility] CenterBACT[facility] - [id number] 10:59:00 Test Item Value Reference Range Interpretation Comments MRSA by PCR (test Negative (06/26/18 5:59 code = MRSA by PCR) AM) [facility] HospitalannBACTERIAL - [id number] 10:59:00 Test Item Value Reference Range Interpretation Comments MRSA by PCR (test Negative (06/26/18 5:59 code = MRSA by PCR) AM) [facility] HospitalannBACTERIAL - [id number] 10:59:00 Test Item Value Reference Range Interpretation Comments MRSA by PCR (test Negative (06/26/18 5:59 code = MRSA by PCR) AM) [facility] HospitalEcometricaBACTERIAL - [id number] 10:59:00 Test Item Value Reference Range Interpretation Comments MRSA by PCR (test Negative (06/26/18 5:59 code = MRSA by PCR) AM) [facility] - [id number] 10:59:00 Test Item Value Reference Range Interpretation Comments MRSA by PCR (test Negative (06/26/18 5:59 code = MRSA by PCR) AM) [facility] HospitalBioMimetic TherapeuticsJ.[facility] - [id number] 10:59:00 Test Item Value Reference Range Interpretation Comments MRSA by PCR (test Negative (06/26/18 5:59 code = MRSA by PCR) AM) [facility] CenterCenterPoint - Conne[facility] EngineeringMER[facility] [id number] 10:59:00 Test Item Value Reference Range Interpretation Comments MRSA by PCR (test Negative (06/26/18 5:59 code = MRSA by PCR) AM) [facility] CenterCenter[facility] - Conne[facility] Software EngineeringMER[facility] [id number] 10:59:00 Test Item Value Reference Range Interpretation Comments MRSA by PCR (test Negative (06/26/18 5:59 code = MRSA by PCR) AM) [facility] CenterCenterPoint - Connective Software EngineeringJ.[facility] - [id number] 10:59:00 Test Item Value Reference Range Interpretation Comments MRSA by PCR (test Negative (06/26/18 5:59 code = MRSA by PCR) AM) [facility] - [id number] 10:59:00 Test Item Value Reference Range Interpretation Comments MRSA by PCR (test Negative (06/26/18 5:59 code = MRSA by PCR) AM) [facility] [employer] [id number] 00:59:00 Test Item Value Reference Range Interpretation Comments Antibody Scrn (test Negative (06/25/18 7:59 code = Antibody Scrn) PM) [facility] [employer] [id number] 00:59:00 Test Item Value Reference Range Interpretation Comments ABO/Rh (test code = ABO/Rh) O POS [facility] LV SensorsannCARDIAC [id number] 00:59:00 Test Item Value Reference Range Interpretation Comments Troponin-I (test code no gt See_Comment [Auto mated message] The = Troponin-I) system which g enerated this result transmit emory reference range : <=0.40. The reference r efren was not used to interpr et this result as dori l/abnormal. [facility]2019-03-19 00:59:00 Test Item Value Reference Range Interpretation Comments Lactic Acid Lvl (test code = Lactic 1.2 0.5-2.2 Acid Lvl) [facility] [id number] 00:59:00 Test Item Value Reference Range Interpretation Comments Eosinophils (test code = 0.2 See_Comment [A utomated message] The Eosinophils) system which ge nerated this result tra nsmitted reference range : <=4.0. The reference r efren was not used to int erpret this result as normal/abnormal . [facility] H[id number] 00:59:00 Test Item Value Reference Range Interpretation Comments Estimated % Lysis Rapid 0.0 See_Comment [Au tomated message] The (test code = Estimated syste m which generated % Lysis Rapid) this result t ransmitted reference range : <=7.5. The reference r efren was not used to int erpret this result as normal/abnormal . [facility] [id number] 00:59:00 Test Item Value Reference Range Interpretation Comments R-time Rapid (test code = R-time 0.4 min 0.4-0.7 Rapid) [facility] H[id number] 00:59:00 Test Item Value Reference Range Interpretation Comments K-time Rapid (test code = K-time 0.8 min 0.6-2.3 Rapid) [facility] H[id number] 00:59:00 Test Item Value Reference Range Interpretation Comments G-value Rapid (test code = G-value 15.7 5.0-11.6 Rapid) [facility] HospitalDbursliZAHRMZSDUR2621-28-64 00:59:00 Test Item Value Reference Range Interpretation Comments Max Amplitude Rapid (test code = Max 76 mm 52-71 Amplitude Rapid) [facility] Hosp[id number] 00:59:00 Test Item Value Reference Range Interpretation Comments Split Point Rapid (test code = Split 0.4 min Point Rapid) [facility] H[id number] 00:59:00 Test Item Value Reference Range Interpretation Comments ACT (TEG) Rapid (test code = ACT (TEG) 89 s 86-118 Rapid) [facility] H[id number] 00:59:00 Test Item Value Reference Range Interpretation Comments Angle Rapid (test code = Angle 82 degrees 64-80 Rapid) [facility] H[id number] 00:59:00 Test Item Value Reference Range Interpretation Comments PTT (test code = PTT) 37.2 s 22.9-35.8 [facility] H[id number] 00:59:00 Test Item Value Reference Range Interpretation Comments INR (test code = INR) 1.00 1 0.85-1.17 [facility] HospitalRjsnrtyNIXGKYDZHV7147-13-15 00:59:00 Test Item Value Reference Range Interpretation Comments PT (test code = PT) 13.0 s 12.0-14.7 [facility] [id number] 00:59:00 Test Item Value Reference Range Interpretation Comments Antibody Scrn (test Negative (06/25/18 7:59 code = Antibody Scrn) PM) [facility] [id number] 00:59:00 Test Item Value Reference Range Interpretation Comments ABO/Rh (test code = ABO/Rh) O POS [facility] CenterCARDIAC [id number] 00:59:00 Test Item Value Reference Range Interpretation Comments Troponin-I (test code no gt See_Comment [Auto mated message] The = Troponin-I) system which g enerated this result transmit emory reference range : <=0.40. The reference r efren was not used to interpr et this result as dori l/abnormal. [facility] CenterCHEM [id number] 00:59:00 Test Item Value Reference Range Interpretation Comments Lactic Acid Lvl (test code = Lactic 1.2 0.5-2.2 Acid Lvl) [facility] H[id number] 00:59:00 Test Item Value Reference Range Interpretation Comments Eosinophils (test code = 0.2 See_Comment [A utomated message] The Eosinophils) system which ge nerated this result tra nsmitted reference range : <=4.0. The reference r efren was not used to int erpret this result as normal/abnormal . [facility] HospitalZehdyumPZISJRLBJI2046-69-77 00:59:00 Test Item Value Reference Range Interpretation Comments Estimated % Lysis Rapid 0.0 See_Comment [Au tomated message] The (test code = Estimated syste m which generated % Lysis Rapid) this result t ransmitted reference range : <=7.5. The reference r efren was not used to int erpret this result as normal/abnormal . [facility] H[id number] 00:59:00 Test Item Value Reference Range Interpretation Comments R-time Rapid (test code = R-time 0.4 min 0.4-0.7 Rapid) [facility] Hos[id number] 00:59:00 Test Item Value Reference Range Interpretation Comments K-time Rapid (test code = K-time 0.8 min 0.6-2.3 Rapid) [facility] HospitalYwpisocWQQWRBSOUL7369-65-60 00:59:00 Test Item Value Reference Range Interpretation Comments G-value Rapid (test code = G-value 15.7 5.0-11.6 Rapid) [facility] HospitalGoprefjEEGTWUTDKL5920-06-77 00:59:00 Test Item Value Reference Range Interpretation Comments Max Amplitude Rapid (test code = Max 76 mm 52-71 Amplitude Rapid) [facility] HospitalYhrjxjpQFHJZDRFPQ8458-68-00 00:59:00 Test Item Value Reference Range Interpretation Comments Split Point Rapid (test code = Split 0.4 min Point Rapid) [facility] HospitalFodcjarAGVIWXWWIX9227-85-05 00:59:00 Test Item Value Reference Range Interpretation Comments ACT (TEG) Rapid (test code = ACT (TEG) 89 s 86-118 Rapid) [facility] HospitalTtcnybdNRNRNEPCOZ8986-61-79 00:59:00 Test Item Value Reference Range Interpretation Comments Angle Rapid (test code = Angle 82 degrees 64-80 Rapid) [facility] Hospit[id number] 00:59:00 Test Item Value Reference Range Interpretation Comments PTT (test code = PTT) 37.2 s 22.9-35.8 [facility] HospitalNccegfcPESIALTJUO6657-04-38 00:59:00 Test Item Value Reference Range Interpretation Comments INR (test code = INR) 1.00 1 0.85-1.17 [facility] HospitalHxmtvouCUPOFLBZHA0452-17-23 00:59:00 Test Item Value Reference Range Interpretation Comments PT (test code = PT) 13.0 s 12.0-14.7 [facility] [id number] 00:59:00 Test Item Value Reference Range Interpretation Comments Antibody Scrn (test Negative (06/25/18 7:59 code = Antibody Scrn) PM) [facility] [id number] 00:59:00 Test Item Value Reference Range Interpretation Comments ABO/Rh (test code = ABO/Rh) O POS [facility] CenterCARDIAC [id number] 00:59:00 Test Item Value Reference Range Interpretation Comments Troponin-I (test code no gt See_Comment [Auto mated message] The = Troponin-I) system which g enerated this result transmit emory reference range : <=0.40. The reference r efren was not used to interpr et this result as dori l/abnormal. [facility] CenterCHEM [id number] 00:59:00 Test Item Value Reference Range Interpretation Comments Lactic Acid Lvl (test code = Lactic 1.2 0.5-2.2 Acid Lvl) [facility] HospitalXmhkaquNMKTXUTRIH8726-57-09 00:59:00 Test Item Value Reference Range Interpretation Comments Eosinophils (test code = 0.2 See_Comment [A utomated message] The Eosinophils) system which ge nerated this result tra nsmitted reference range : <=4.0. The reference r efren was not used to int erpret this result as normal/abnormal . [facility] HospitalFirkyokOQNAHSFWUR6745-58-05 00:59:00 Test Item Value Reference Range Interpretation Comments Estimated % Lysis Rapid 0.0 See_Comment [Au tomated message] The (test code = Estimated syste m which generated % Lysis Rapid) this result t ransmitted reference range : <=7.5. The reference r efren was not used to int erpret this result as normal/abnormal . [facility] HospitalAyfqragKWVUXOZICY3076-45-33 00:59:00 Test Item Value Reference Range Interpretation Comments R-time Rapid (test code = R-time 0.4 min 0.4-0.7 Rapid) [facility] HospitalRmelasoQMXPZATUMB4419-77-03 00:59:00 Test Item Value Reference Range Interpretation Comments K-time Rapid (test code = K-time 0.8 min 0.6-2.3 Rapid) [facility] HospitalFvuigzcJUFEKQAJPX0454-31-35 00:59:00 Test Item Value Reference Range Interpretation Comments G-value Rapid (test code = G-value 15.7 5.0-11.6 Rapid) [facility] HospitalBxfmojjIMAAXIWOHX4847-01-94 00:59:00 Test Item Value Reference Range Interpretation Comments Max Amplitude Rapid (test code = Max 76 mm 52-71 Amplitude Rapid) [facility] HospitalTthvesuGVARMHSUKZ2366-34-30 00:59:00 Test Item Value Reference Range Interpretation Comments Split Point Rapid (test code = Split 0.4 min Point Rapid) [facility] HospitalDbwfwihTQZMLPUSCX6043-73-00 00:59:00 Test Item Value Reference Range Interpretation Comments ACT (TEG) Rapid (test code = ACT (TEG) 89 s 86-118 Rapid) [facility] HospitalAqjidurPJCJZQRMDN8853-68-24 00:59:00 Test Item Value Reference Range Interpretation Comments Angle Rapid (test code = Angle 82 degrees 64-80 Rapid) [facility] HospitalSjmxqchCNVDTPCQNX2026-86-34 00:59:00 Test Item Value Reference Range Interpretation Comments PTT (test code = PTT) 37.2 s 22.9-35.8 [facility] HospitalKunxnwnDBKMMCZLNT8856-55-38 00:59:00 Test Item Value Reference Range Interpretation Comments INR (test code = INR) 1.00 1 0.85-1.17 [facility] CenterXxdbtvqQPLMXIQBZB5549-34-45 00:59:00 Test Item Value Reference Range Interpretation Comments PT (test code = PT) 13.0 s 12.0-14.7 [facility] HospitalOncoHoldings [facility] [id number] 00:59:00 Test Item Value Reference Range Interpretation Comments Antibody Scrn (test Negative (06/25/18 7:59 code = Antibody Scrn) PM) [facility] HospitalOncoHoldings [facility] [id number] 00:59:00 Test Item Value Reference Range Interpretation Comments ABO/Rh (test code = ABO/Rh) O POS [facility] CenterCARDIAC [id number] 00:59:00 Test Item Value Reference Range Interpretation Comments Troponin-I (test code no gt See_Comment [Auto mated message] The = Troponin-I) system which g enerated this result transmit emory reference range : <=0.40. The reference r efren was not used to interpr et this result as dori l/abnormal. [facility] HospitalEcometricaCHEM [id number] 00:59:00 Test Item Value Reference Range Interpretation Comments Lactic Acid Lvl (test code = Lactic 1.2 0.5-2.2 Acid Lvl) [facility] HospitalXztcqlbHOHQVEYSQZ8655-57-50 00:59:00 Test Item Value Reference Range Interpretation Comments Eosinophils (test code = 0.2 See_Comment [A utomated message] The Eosinophils) system which ge nerated this result tra nsmitted reference range : <=4.0. The reference r efren was not used to int erpret this result as normal/abnormal . [facility] HospitalGevrlbiJFZWPXZGNI3773-19-92 00:59:00 Test Item Value Reference Range Interpretation Comments Estimated % Lysis Rapid 0.0 See_Comment [Au tomated message] The (test code = Estimated syste m which generated % Lysis Rapid) this result t ransmitted reference range : <=7.5. The reference r efren was not used to int erpret this result as normal/abnormal . [facility] HospitalBqqlneuJBYOUBMPPZ5884-42-34 00:59:00 Test Item Value Reference Range Interpretation Comments R-time Rapid (test code = R-time 0.4 min 0.4-0.7 Rapid) [facility] HospitalOxxqkbqUMGRLQZDFQ7884-90-82 00:59:00 Test Item Value Reference Range Interpretation Comments K-time Rapid (test code = K-time 0.8 min 0.6-2.3 Rapid) [facility] HospitalPnvghwkJDSEBSSUMS9895-22-79 00:59:00 Test Item Value Reference Range Interpretation Comments G-value Rapid (test code = G-value 15.7 5.0-11.6 Rapid) [facility] HospitalHpvabdhDMTJSQQRUP5168-00-52 00:59:00 Test Item Value Reference Range Interpretation Comments Max Amplitude Rapid (test code = Max 76 mm 52-71 Amplitude Rapid) [facility] HospitalAxylxsdKWPQRFZQYA9842-26-07 00:59:00 Test Item Value Reference Range Interpretation Comments Split Point Rapid (test code = Split 0.4 min Point Rapid) [facility] HospitalNzzckdoYBWTQSUZSI1968-52-79 00:59:00 Test Item Value Reference Range Interpretation Comments ACT (TEG) Rapid (test code = ACT (TEG) 89 s 86-118 Rapid) [facility] HospitalRbemkzsZQWVQBZATS2313-31-91 00:59:00 Test Item Value Reference Range Interpretation Comments Angle Rapid (test code = Angle 82 degrees 64-80 Rapid) [facility] HospitalBialzueGPUFWTZUXJ6988-50-14 00:59:00 Test Item Value Reference Range Interpretation Comments PTT (test code = PTT) 37.2 s 22.9-35.8 [facility] CenterVslwwgcEPCLJMHOLC6843-11-35 00:59:00 Test Item Value Reference Range Interpretation Comments INR (test code = INR) 1.00 1 0.85-1.17 [facility] HospitalMqizuytKGDDEWMWRF2183-41-09 00:59:00 Test Item Value Reference Range Interpretation Comments PT (test code = PT) 13.[address] 12[address]0-14.[address] [facility] [id number] 00:59:00 Test Item Value Reference Range Interpretation Comments Antibody Scrn (test Negative (06/25/18 7:59 code = Antibody Scrn) PM) [facility] [id number] 00:59:00 Test Item Value Reference Range Interpretation Comments ABO/Rh (test code = ABO/Rh) O POS [facility] CenterCARDIAC [id number] 00:59:00 Test Item Value Reference Range Interpretation Comments Troponin-I (test code no gt See_Comment [Auto mated message] The = Troponin-I) system which g enerated this result transmit emory reference range : <=0.40. The reference r efren was not used to interpr et this result as dori l/abnormal. [facility]EcometricaCHEM [id number] 00:59:00 Test Item Value Reference Range Interpretation Comments Lactic Acid Lvl (test code = Lactic 1.2 0.5-2.2 Acid Lvl) [facility] CenterPusqtplRJUUUHCREA4003-26-56 00:59:00 Test Item Value Reference Range Interpretation Comments Eosinophils (test code = 0.2 See_Comment [A utomated message] The Eosinophils) system which ge nerated this result tra nsmitted reference range : <=4.0. The reference r efren was not used to int erpret this result as normal/abnormal . [facility] HospitalJxmuzidJKQSBYCHVZ0596-65-71 00:59:00 Test Item Value Reference Range Interpretation Comments Estimated % Lysis Rapid 0.0 See_Comment [Au tomated message] The (test code = Estimated syste m which generated % Lysis Rapid) this result t ransmitted reference range : <=7.5. The reference r efren was not used to int erpret this result as normal/abnormal . [facility] HospitalNebzowxTWQGEUQREZ4771-18-37 00:59:00 Test Item Value Reference Range Interpretation Comments R-time Rapid (test code = R-time 0.4 min 0.4-0.7 Rapid) [facility] CenterQqbwpioLRMQBBBMZC0493-30-10 00:59:00 Test Item Value Reference Range Interpretation Comments K-time Rapid (test code = K-time 0.8 min 0.6-2.3 Rapid) [facility] HospitalBbcvenzSNOUIOJYPZ3002-57-12 00:59:00 Test Item Value Reference Range Interpretation Comments G-value Rapid (test code = G-value 15.7 5.0-11.6 Rapid) [facility] CenterNsnkvboTPHBNGKXDX6004-92-15 00:59:00 Test Item Value Reference Range Interpretation Comments Max Amplitude Rapid (test code = Max 76 mm 52-71 Amplitude Rapid) [facility] HospitalXnuzgomJWDHYSUOMR0474-38-51 00:59:00 Test Item Value Reference Range Interpretation Comments Split Point Rapid (test code = Split 0.4 min Point Rapid) [facility] CenterSxteluyQUVCMEYNXG3120-57-86 00:59:00 Test Item Value Reference Range Interpretation Comments ACT (TEG) Rapid (test code = ACT (TEG) 89 s 86-118 Rapid) [facility] CenterOahqblvNQAEFDQSPH4502-31-62 00:59:00 Test Item Value Reference Range Interpretation Comments Angle Rapid (test code = Angle 82 degrees 64-80 Rapid) [facility] CenterKgbupuaHMIFMRWFBR1038-14-85 00:59:00 Test Item Value Reference Range Interpretation Comments PTT (test code = PTT) 37.2 s 22.9-35.8 [facility] CenterCfkcarcITXDXNKDCN8317-26-38 00:59:00 Test Item Value Reference Range Interpretation Comments INR (test code = INR) 1.00 1 0.85-1.17 [facility] CenterUbexeyuIUQIURHBZM4005-47-86 00:59:00 Test Item Value Reference Range Interpretation Comments PT (test code = PT) 13.0 s 12.0-14.7 [facility] Debteye GQBPCGX0932-44-65 00:59:00 Test Item Value Reference Range Interpretation Comments Antibody Scrn (test Negative (06/25/18 7:59 code = Antibody Scrn) PM) [facility] HospitalStudy[facility] [id number] 00:59:00 Test Item Value Reference Range Interpretation Comments ABO/Rh (test code = ABO/Rh) O POS [facility] HospitalEcometricaCARDIAC HPXPLHF7137-75-58 00:59:00 Test Item Value Reference Range Interpretation Comments Troponin-I (test code no gt See_Comment [Auto mated message] The = Troponin-I) system which g enerated this result transmit emory reference range : <=0.40. The reference r efren was not used to interpr et this result as dori l/abnormal. [facility] [id number] 00:59:00 Test Item Value Reference Range Interpretation Comments Lactic Acid Lvl (test code = Lactic 1.2 0.5-2.2 Acid Lvl) [facility] HospitalPcwfmunPVCSMBCXBW8351-58-30 00:59:00 Test Item Value Reference Range Interpretation Comments Eosinophils (test code = 0.2 See_Comment [A utomated message] The Eosinophils) system which ge nerated this result tra nsmitted reference range : <=4.0. The reference r efren was not used to int erpret this result as normal/abnormal . [facility] HospitalHjiqjgkGWNCNWFTOZ7651-50-70 00:59:00 Test Item Value Reference Range Interpretation Comments Estimated % Lysis Rapid 0.0 See_Comment [Au tomated message] The (test code = Estimated syste m which generated % Lysis Rapid) this result t ransmitted reference range : <=7.5. The reference r efren was not used to int erpret this result as normal/abnormal . [facility] HospitalYcxakzaDYXFUMYTQU4817-55-90 00:59:00 Test Item Value Reference Range Interpretation Comments R-time Rapid (test code = R-time 0.4 min 0.4-0.7 Rapid) [facility] HospitalOiqqnuoNVJOWKOVJN1820-09-43 00:59:00 Test Item Value Reference Range Interpretation Comments K-time Rapid (test code = K-time 0.8 min 0.6-2.3 Rapid) [facility] HospitalXbbnoxyPZLMTLSXGA2919-90-99 00:59:00 Test Item Value Reference Range Interpretation Comments G-value Rapid (test code = G-value 15.7 5.0-11.6 Rapid) [facility] HospitalRkrtlbdCGNXPBBZUM2920-96-01 00:59:00 Test Item Value Reference Range Interpretation Comments Max Amplitude Rapid (test code = Max 76 mm 52-71 Amplitude Rapid) [facility] HospitalGlitmbsFKJMZPTCBK6749-86-51 00:59:00 Test Item Value Reference Range Interpretation Comments Split Point Rapid (test code = Split 0.4 min Point Rapid) [facility] HospitalRgzkmczBXHQSUOJBL6028-01-05 00:59:00 Test Item Value Reference Range Interpretation Comments ACT (TEG) Rapid (test code = ACT (TEG) 89 s 86-118 Rapid) [facility] HospitalKaslsrnGUZEQGHCYR9164-19-80 00:59:00 Test Item Value Reference Range Interpretation Comments Angle Rapid (test code = Angle 82 degrees 64-80 Rapid) [facility] HospitalRhissmoPFBZWAHQGA6037-51-19 00:59:00 Test Item Value Reference Range Interpretation Comments PTT (test code = PTT) 37.2 s 22.9-35.8 [facility] HospitalJppjmtjYVBLCFPMPW1700-10-36 00:59:00 Test Item Value Reference Range Interpretation Comments INR (test code = INR) 1.00 1 0.85-1.17 [facility] HospitalFqxxyooBUAEIFVEQA9471-45-63 00:59:00 Test Item Value Reference Range Interpretation Comments PT (test code = PT) 13.0 s 12.0-14.[address] [facility] [id number] 00:59:00 Test Item Value Reference Range Interpretation Comments Antibody Scrn (test Negative (06/25/18 7:59 code = Antibody Scrn) PM) [facility] JZWBHNA2915-81-76 00:59:00 Test Item Value Reference Range Interpretation Comments ABO/Rh (test code = ABO/Rh) O POS [facility] CenterCARDIAC [id number] 00:59:00 Test Item Value Reference Range Interpretation Comments Troponin-I (test code no gt See_Comment [Auto mated message] The = Troponin-I) system which g enerated this result transmit emory reference range : <=0.40. The reference r efren was not used to interpr et this result as dori l/abnormal. [facility] CenterCHEM ZLQRV9151-65-98 00:59:00 Test Item Value Reference Range Interpretation Comments Lactic Acid Lvl (test code = Lactic 1.2 0.5-2.2 Acid Lvl) [facility] HospitalToukwomVSDBAKGLMV5959-29-85 00:59:00 Test Item Value Reference Range Interpretation Comments Eosinophils (test code = 0.2 See_Comment [A utomated message] The Eosinophils) system which ge nerated this result tra nsmitted reference range : <=4.0. The reference r efren was not used to int erpret this result as normal/abnormal . [facility] CenterObgnlieEICMQHUXXD5191-89-81 00:59:00 Test Item Value Reference Range Interpretation Comments Estimated % Lysis Rapid 0.0 See_Comment [Au tomated message] The (test code = Estimated syste m which generated % Lysis Rapid) this result t ransmitted reference range : <=7.5. The reference r efren was not used to int erpret this result as normal/abnormal . [facility] CenterMdhcxueDLEBBGGNEJ7774-56-48 00:59:00 Test Item Value Reference Range Interpretation Comments R-time Rapid (test code = R-time 0.4 min 0.4-0.7 Rapid) [facility] HospitalNhfpcuiGHOUOPGYOU4370-02-65 00:59:00 Test Item Value Reference Range Interpretation Comments K-time Rapid (test code = K-time 0.8 min 0.6-2.3 Rapid) [facility] HospitalHhblakqNJHTMQHNUM6713-30-38 00:59:00 Test Item Value Reference Range Interpretation Comments G-value Rapid (test code = G-value 15.7 5.0-11.6 Rapid) [facility] CenterDkdvcpmFZKVWUMTLM8468-75-74 00:59:00 Test Item Value Reference Range Interpretation Comments Max Amplitude Rapid (test code = Max 76 mm 52-71 Amplitude Rapid) [facility]Study[facility] DSLQCAD4533-11-87 00:59:00 Test Item Value Reference Range Interpretation Comments Antibody Scrn (test Negative (06/25/18 7:59 code = Antibody Scrn) PM) [facility]Study[facility] [id number] 00:59:00 Test Item Value Reference Range Interpretation Comments ABO/Rh (test code = ABO/Rh) O POS [facility] HospitalEcometricaCARDIAC [id number] 00:59:00 Test Item Value Reference Range Interpretation Comments Troponin-I (test code no gt See_Comment [Auto mated message] The = Troponin-I) system which g enerated this result transmit emory reference range : <=0.40. The reference r efren was not used to interpr et this result as dori l/abnormal. [facility] HospitalEcometricaCHEM FSKJU4579-08-77 00:59:00 Test Item Value Reference Range Interpretation Comments Lactic Acid Lvl (test code = Lactic 1.2 0.5-2.2 Acid Lvl) [facility] HospitalUzwomtlSUSMSPZBOH0520-69-22 00:59:00 Test Item Value Reference Range Interpretation Comments Split Point Rapid (test code = Split 0.4 min Point Rapid) [facility] HospitalFdwrynxGRTBDHFKZH0752-05-90 00:59:00 Test Item Value Reference Range Interpretation Comments Eosinophils (test code = 0.2 See_Comment [A utomated message] The Eosinophils) system which ge nerated this result tra nsmitted reference range : <=4.0. The reference r efren was not used to int erpret this result as normal/abnormal . [facility] HospitalQhbdhhuJHNUGZHSGV2334-65-47 00:59:00 Test Item Value Reference Range Interpretation Comments Estimated % Lysis Rapid 0.0 See_Comment [Au tomated message] The (test code = Estimated syste m which generated % Lysis Rapid) this result t ransmitted reference range : <=7.5. The reference r efren was not used to int erpret this result as normal/abnormal . [facility] HospitalIkfqxkiNDKMKDMNMV2619-37-04 00:59:00 Test Item Value Reference Range Interpretation Comments R-time Rapid (test code = R-time 0.4 min 0.4-0.7 Rapid) [facility] HospitalLdyskoiDYSUBCRARN6548-66-90 00:59:00 Test Item Value Reference Range Interpretation Comments K-time Rapid (test code = K-time 0.8 min 0.6-2.3 Rapid) [facility] HospitalHmhggmbQOKNWVDRHG6184-83-67 00:59:00 Test Item Value Reference Range Interpretation Comments G-value Rapid (test code = G-value 15.7 5.0-11.6 Rapid) [facility] HospitalXbfifnhQHZHZOXLHZ6956-73-37 00:59:00 Test Item Value Reference Range Interpretation Comments Max Amplitude Rapid (test code = Max 76 mm 52-71 Amplitude Rapid) [facility] HospitalYenamchLOMFOLNBFT2451-70-85 00:59:00 Test Item Value Reference Range Interpretation Comments Split Point Rapid (test code = Split 0.4 min Point Rapid) [facility] HospitalRcezyiwEZBPKTXRKF3160-40-35 00:59:00 Test Item Value Reference Range Interpretation Comments ACT (TEG) Rapid (test code = ACT (TEG) 89 s 86-118 Rapid) [facility] HospitalBqqghbjRFJVGOYFIR8068-72-29 00:59:00 Test Item Value Reference Range Interpretation Comments Angle Rapid (test code = Angle 82 degrees 64-80 Rapid) [facility] CenterTgohaxsRTPQAMQQPZ6769-31-19 00:59:00 Test Item Value Reference Range Interpretation Comments PTT (test code = PTT) 37.2 s 22.9-35.8 [facility] CenterSmbsqcnSXWGRJFCKF1861-57-55 00:59:00 Test Item Value Reference Range Interpretation Comments ACT (TEG) Rapid (test code = ACT (TEG) 89 s 86-118 Rapid) [facility] HospitalGkfwcmaIZRYZYTFIK6984-65-00 00:59:00 Test Item Value Reference Range Interpretation Comments INR (test code = INR) 1.00 1 0.85-1.17 [facility] HospitalUochlgcLTZKJPMKSB6626-59-02 00:59:00 Test Item Value Reference Range Interpretation Comments PT (test code = PT) 13.0 s 12.0-14.7 [facility] HospitalModcowaKOMDRFCUSP0474-63-96 00:59:00 Test Item Value Reference Range Interpretation Comments Angle Rapid (test code = Angle 82 degrees 64-80 Rapid) [facility] HospitalJxmuxphTBLQBVASAN3836-96-40 00:59:00 Test Item Value Reference Range Interpretation Comments PTT (test code = PTT) 37.2 s 22.9-35.8 [facility] HospitalZscxzknQTSULZLUXC3791-19-76 00:59:00 Test Item Value Reference Range Interpretation Comments INR (test code = INR) 1.00 1 0.85-1.17 [facility] HospitalRbunzipPKZUPSLOKK1702-55-94 00:59:00 Test Item Value Reference Range Interpretation Comments PT (test code = PT) 13.0 s 12.0-14.7 [facility] BMOTJXZ0089-07-32 00:59:00 Test Item Value Reference Range Interpretation Comments Antibody Scrn (test Negative (06/25/18 7:59 code = Antibody Scrn) PM) [facility] DGMAXXZ8660-22-23 00:59:00 Test Item Value Reference Range Interpretation Comments ABO/Rh (test code = ABO/Rh) O POS [facility] HospitalEcometricaCARDIAC ATESXWT5807-62-67 00:59:00 Test Item Value Reference Range Interpretation Comments Troponin-I (test code no gt See_Comment [Auto mated message] The = Troponin-I) system which g enerated this result transmit emory reference range : <=0.40. The reference r efren was not used to interpr et this result as dori l/abnormal. [facility]2019-03-19 00:59:00 Test Item Value Reference Range Interpretation Comments Lactic Acid Lvl (test code = Lactic 1.2 0.5-2.2 Acid Lvl) [facility] HospitalQvesbhnQLXDXBIHRZ8354-80-51 00:59:00 Test Item Value Reference Range Interpretation Comments Eosinophils (test code = 0.2 See_Comment [A utomated message] The Eosinophils) system which ge nerated this result tra nsmitted reference range : <=4.0. The reference r efren was not used to int erpret this result as normal/abnormal . [facility] HospitalLgmswkmZWKNMABMLY7844-45-34 00:59:00 Test Item Value Reference Range Interpretation Comments Estimated % Lysis Rapid 0.0 See_Comment [Au tomated message] The (test code = Estimated syste m which generated % Lysis Rapid) this result t ransmitted reference range : <=7.5. The reference r efren was not used to int erpret this result as normal/abnormal . [facility] HospitalVggvlcfFQAIIGDYDG3339-21-68 00:59:00 Test Item Value Reference Range Interpretation Comments R-time Rapid (test code = R-time 0.4 min 0.4-0.7 Rapid) [facility] HospitalRcrwwuzYJIMNXKQBA0489-11-57 00:59:00 Test Item Value Reference Range Interpretation Comments K-time Rapid (test code = K-time 0.8 min 0.6-2.3 Rapid) [facility] HospitalXxgfiurFAGSGGOHDX0375-68-34 00:59:00 Test Item Value Reference Range Interpretation Comments G-value Rapid (test code = G-value 15.7 5.0-11.6 Rapid) [facility] HospitalOiccyvwYBDPDRTYTG3832-42-35 00:59:00 Test Item Value Reference Range Interpretation Comments Max Amplitude Rapid (test code = Max 76 mm 52-71 Amplitude Rapid) [facility] HospitalXgglpejCFWAOJAJZJ5845-59-19 00:59:00 Test Item Value Reference Range Interpretation Comments Split Point Rapid (test code = Split 0.4 min Point Rapid) [facility] HospitalTujeodmQFKUIMQWYB1219-91-37 00:59:00 Test Item Value Reference Range Interpretation Comments ACT (TEG) Rapid (test code = ACT (TEG) 89 s 86-118 Rapid) [facility] HospitalEdvrsquQDNVRVFLHN1775-75-73 00:59:00 Test Item Value Reference Range Interpretation Comments Angle Rapid (test code = Angle 82 degrees 64-80 Rapid) [facility] HospitalLbdjueuKGMJTIPZCU1712-23-23 00:59:00 Test Item Value Reference Range Interpretation Comments PTT (test code = PTT) 37.2 s 22.9-35.8 [facility] HospitalGvuxjqcCTFJVOLLBE3873-74-84 00:59:00 Test Item Value Reference Range Interpretation Comments INR (test code = INR) 1.00 1 0.85-1.17 [facility] HospitalLktswluJBPTKXYLDL5240-76-42 00:59:00 Test Item Value Reference Range Interpretation Comments PT (test code = PT) 13.0 s 12.0-14.7 [facility] AIBRYZK8156-01-37 00:59:00 Test Item Value Reference Range Interpretation Comments Antibody Scrn (test Negative (06/25/18 7:59 code = Antibody Scrn) PM) [facility] DGMGZGQ3915-94-79 00:59:00 Test Item Value Reference Range Interpretation Comments ABO/Rh (test code = ABO/Rh) O POS [facility] BIVKMPK4858-44-29 00:59:00 Test Item Value Reference Range Interpretation Comments Troponin-I (test code no gt See_Comment [Auto mated message] The = Troponin-I) system which g enerated this result transmit emory reference range : <=0.40. The reference r efren was not used to interpr et this result as dori l/abnormal. [facility] AOQKU3458-34-70 00:59:00 Test Item Value Reference Range Interpretation Comments Lactic Acid Lvl (test code = Lactic 1.2 0.5-2.2 Acid Lvl) [facility] HospitalHkqxjozRNSYPMNFMX4313-31-25 00:59:00 Test Item Value Reference Range Interpretation Comments Eosinophils (test code = 0.2 See_Comment [A utomated message] The Eosinophils) system which ge nerated this result tra nsmitted reference range : <=4.0. The reference r efren was not used to int erpret this result as normal/abnormal . [facility] HospitalLhozwdtYRBIWQFPBR8298-05-04 00:59:00 Test Item Value Reference Range Interpretation Comments Estimated % Lysis Rapid 0.0 See_Comment [Au tomated message] The (test code = Estimated syste m which generated % Lysis Rapid) this result t ransmitted reference range : <=7.5. The reference r efren was not used to int erpret this result as normal/abnormal . [facility] HospitalNppaezmFAKBZIJFKX4702-88-53 00:59:00 Test Item Value Reference Range Interpretation Comments R-time Rapid (test code = R-time 0.4 min 0.4-0.7 Rapid) [facility] HospitalPiesjxtUHYVUXFVRS5110-76-76 00:59:00 Test Item Value Reference Range Interpretation Comments K-time Rapid (test code = K-time 0.8 min 0.6-2.3 Rapid) [facility] HospitalYxdminlGTCQDKYBQE5469-77-51 00:59:00 Test Item Value Reference Range Interpretation Comments G-value Rapid (test code = G-value 15.7 5.0-11.6 Rapid) [facility] HospitalMqzcghpGIWQAQFSMP3117-31-61 00:59:00 Test Item Value Reference Range Interpretation Comments Max Amplitude Rapid (test code = Max 76 mm 52-71 Amplitude Rapid) [facility] HospitalMohxcmjUJCVMOZIXJ1972-88-20 00:59:00 Test Item Value Reference Range Interpretation Comments Split Point Rapid (test code = Split 0.4 min Point Rapid) [facility] HospitalEzobvzlGDFGHXDMGA6158-52-55 00:59:00 Test Item Value Reference Range Interpretation Comments ACT (TEG) Rapid (test code = ACT (TEG) 89 s 86-118 Rapid) [facility] HospitalBtdylbtJHFVSMTPCJ4484-65-09 00:59:00 Test Item Value Reference Range Interpretation Comments Angle Rapid (test code = Angle 82 degrees 64-80 Rapid) [facility] HospitalLnprxgrPMITDAXWFC2022-70-93 00:59:00 Test Item Value Reference Range Interpretation Comments PTT (test code = PTT) 37.2 s 22.9-35.8 [facility] HospitalXlrmsaaZPZQAETJEY2867-41-17 00:59:00 Test Item Value Reference Range Interpretation Comments INR (test code = INR) 1.00 1 0.85-1.17 [facility] HospitalOeejmykOEMQHBDCDU5288-34-63 00:59:00 Test Item Value Reference Range Interpretation Comments PT (test code = PT) 13.0 s 12.0-14.[address] [facility] ARJIDLH0561-77-38 00:59:00 Test Item Value Reference Range Interpretation Comments Antibody Scrn (test Negative (06/25/18 7:59 code = Antibody Scrn) PM) [facility] UAWULNJ3076-[facility]-48 00:59:00 Test Item Value Reference Range Interpretation Comments ABO/Rh (test code = ABO/Rh) O POS [facility] KIBERUQ5919-63-36 00:59:00 Test Item Value Reference Range Interpretation Comments Troponin-I (test code no gt See_Comment [Auto mated message] The = Troponin-I) system which g enerated this result transmit emory reference range : <=0.40. The reference r efren was not used to interpr et this result as dori l/abnormal. [facility]CHE[facility] QIKFQ8779-02-31 00:59:00 Test Item Value Reference Range Interpretation Comments Lactic Acid Lvl (test code = Lactic 1.2 0.5-2.2 Acid Lvl) [facility] HospitalHsprahfLCKACZRJYA2088-40-94 00:59:00 Test Item Value Reference Range Interpretation Comments Eosinophils (test code = 0.2 See_Comment [A utomated message] The Eosinophils) system which ge nerated this result tra nsmitted reference range : <=4.0. The reference r efren was not used to int erpret this result as normal/abnormal . [facility] HospitalLhmaikyMWUTCKSTLN8585-10-71 00:59:00 Test Item Value Reference Range Interpretation Comments Estimated % Lysis Rapid 0.0 See_Comment [Au tomated message] The (test code = Estimated syste m which generated % Lysis Rapid) this result t ransmitted reference range : <=7.5. The reference r efren was not used to int erpret this result as normal/abnormal . [facility] HospitalYhxaufkYNABNHEYUX7797-42-95 00:59:00 Test Item Value Reference Range Interpretation Comments R-time Rapid (test code = R-time 0.4 min 0.4-0.7 Rapid) [facility] HospitalMtwaqtvHJJYKJTEET6735-42-99 00:59:00 Test Item Value Reference Range Interpretation Comments K-time Rapid (test code = K-time 0.8 min 0.6-2.3 Rapid) [facility] HospitalJmsezsgCVJGXCBYZX1393-20-99 00:59:00 Test Item Value Reference Range Interpretation Comments G-value Rapid (test code = G-value 15.7 5.0-11.6 Rapid) [facility] HospitalNydfgpuLOAWFHKKKX1168-45-90 00:59:00 Test Item Value Reference Range Interpretation Comments Max Amplitude Rapid (test code = Max 76 mm 52-71 Amplitude Rapid) [facility] HospitalJplflyxSLQCNJZZOL8424-28-62 00:59:00 Test Item Value Reference Range Interpretation Comments Split Point Rapid (test code = Split 0.4 min [address] Rapid) [facility] HospitalXqqnhzaDIYJSWCAUT4932-86-58 00:59:00 Test Item Value Reference Range Interpretation Comments ACT (TEG) Rapid (test code = ACT (TEG) 89 s 86-118 Rapid) [facility] HospitalZgiowdbNZDBBDRQYA7899-83-49 00:59:00 Test Item Value Reference Range Interpretation Comments Angle Rapid (test code = Angle 82 degrees 64-80 Rapid) [facility] HospitalGqtkudsUASMMYJJFK9735-95-83 00:59:00 Test Item Value Reference Range Interpretation Comments PTT (test code = PTT) 37.2 s 22.9-35.8 [facility] HospitalHpttnmqNHGNYAVMPM9575-66-94 00:59:00 Test Item Value Reference Range Interpretation Comments INR (test code = INR) 1.00 1 0.85-1.17 [facility] HospitalAamxijuGBIXOKSHTK7082-16-90 00:59:00 Test Item Value Reference Range Interpretation Comments PT (test code = PT) 13.0 s 12.0-14.7 [facility] [id number] 00:59:00 Test Item Value Reference Range Interpretation Comments Antibody Scrn (test Negative (06/25/18 7:59 code = Antibody Scrn) PM[facility] [id number] 00:59:00 Test Item Value Reference Range Interpretation Comments ABO/Rh (test code = ABO/Rh) O POS [facility] [id number] 00:59:00 Test Item Value Reference Range Interpretation Comments Troponin-I (test code no gt See_Comment [Auto mated message] The = Troponin-I) system which g enerated this result transmit emory reference range : <=0.40. The reference r efren was not used to interpr et this result as dori l/abnormal. [facility] HospitalEcometricaCHEM [id number] 00:59:00 Test Item Value Reference Range Interpretation Comments Lactic Acid Lvl (test code = Lactic 1.2 0.5-2.2 Acid Lvl) [facility] Cent[id number] 00:59:00 Test Item Value Reference Range Interpretation Comments Eosinophils (test code = 0.2 See_Comment [A utomated message] The Eosinophils) system which ge nerated this result tra nsmitted reference range : <=4.0. The reference r efren was not used to int erpret this result as normal/abnormal . [facility] HospitalDtwduldTWFMBUOHXX9745-79-78 00:59:00 Test Item Value Reference Range Interpretation Comments Estimated % Lysis Rapid 0.0 See_Comment [Au tomated message] The (test code = Estimated syste m which generated % Lysis Rapid) this result t ransmitted reference range : <=7.5. The reference r efren was not used to int erpret this result as normal/abnormal . [facility] HospitalOxufdmqRYYXQGAAZA3511-33-72 00:59:00 Test Item Value Reference Range Interpretation Comments R-time Rapid (test code = R-time 0.4 min 0.4-0.7 Rapid) [facility] HospitalLdsspyaBZAFHLYDLH2890-34-76 00:59:00 Test Item Value Reference Range Interpretation Comments K-time Rapid (test code = K-time 0.8 min 0.6-2.3 Rapid) [facility] HospitalGjesyunVDEDGPZACR0009-09-69 00:59:00 Test Item Value Reference Range Interpretation Comments G-value Rapid (test code = G-value 15.7 5.0-11.6 Rapid) [facility] HospitalMmyclreCFTCMQXHRP7323-17-51 00:59:00 Test Item Value Reference Range Interpretation Comments Max Amplitude Rapid (test code = Max 76 mm 52-71 Amplitude Rapid) [facility] H[id number] 00:59:00 Test Item Value Reference Range Interpretation Comments Split Point Rapid (test code = Split 0.4 min Point Rapid) [facility] HospitalSiojzzcCQKJIMRJWM5110-53-62 00:59:00 Test Item Value Reference Range Interpretation Comments ACT (TEG) Rapid (test code = ACT (TEG) 89 s 86-118 Rapid) [facility] HospitalRkpyffhMPUYWXOHEJ8775-24-87 00:59:00 Test Item Value Reference Range Interpretation Comments Angle Rapid (test code = Angle 82 degrees 64-80 Rapid) [facility] HospitalRoyelwbXNCTEPKBRK9730-82-38 00:59:00 Test Item Value Reference Range Interpretation Comments PTT (test code = PTT) 37.2 s 22.9-35.8 [facility] HospitalQvilwyuRYRRTWMNKA2772-33-32 00:59:00 Test Item Value Reference Range Interpretation Comments INR (test code = INR) 1.00 1 0.85-1.17 [facility] HospitalF[id number] 00:59:00 Test Item Value Reference Range Interpretation Comments PT (test code = PT) 13.0 s 12.0-14.7 [facility] [id number] 00:59:00 Test Item Value Reference Range Interpretation Comments Antibody Scrn (test Negative (06/25/18 7:59 code = Antibody Scrn) PM) [facility] [id number] 00:59:00 Test Item Value Reference Range Interpretation Comments ABO/Rh (test code = ABO/Rh) O POS [facility]CARD[facility]AC [id number] 00:59:00 Test Item Value Reference Range Interpretation Comments Troponin-I (test code no gt See_Comment [Auto mated message] The = Troponin-I) system which g enerated this result transmit emory reference range : <=0.40. The reference r efren was not used to interpr et this result as dori l/abnormal. [facility] CenterCHEM [id number] 00:59:00 Test Item Value Reference Range Interpretation Comments Lactic Acid Lvl (test code = Lactic 1.2 0.5-2.2 Acid Lvl) [facility] HospitalFagjskaNBZVIAKQAU2560-95-34 00:59:00 Test Item Value Reference Range Interpretation Comments Eosinophils (test code = 0.2 See_Comment [A utomated message] The Eosinophils) system which ge nerated this result tra nsmitted reference range : <=4.0. The reference r efren was not used to int erpret this result as normal/abnormal . [facility] CenterYthntubIZGGZUIVNA6044-83-10 00:59:00 Test Item Value Reference Range Interpretation Comments Estimated % Lysis Rapid 0.0 See_Comment [Au tomated message] The (test code = Estimated syste m which generated % Lysis Rapid) this result t ransmitted reference range : <=7.5. The reference r efren was not used to int erpret this result as normal/abnormal . [facility] HospitalIsbzglaKCIWLMWBOJ6940-79-99 00:59:00 Test Item Value Reference Range Interpretation Comments R-time Rapid (test code = R-time 0.4 min 0.4-0.7 Rapid) [facility] HospitalGmguqmrCVRKQIXTHU4893-22-35 00:59:00 Test Item Value Reference Range Interpretation Comments K-time Rapid (test code = K-time 0.8 min 0.6-2.3 Rapid) [facility] H[id number] 00:59:00 Test Item Value Reference Range Interpretation Comments G-value Rapid (test code = G-value 15.7 5.0-11.6 Rapid) [facility] HospitalOeteyzsVYOCMPQWTW8084-22-85 00:59:00 Test Item Value Reference Range Interpretation Comments Max Amplitude Rapid (test code = Max 76 mm 52-71 Amplitude Rapid) [facility] HospitalWgdzixfNBRMSHPBJC4556-16-03 00:59:00 Test Item Value Reference Range Interpretation Comments Split Point Rapid (test code = Split 0.4 min Point Rapid) [facility] HospitalVdwimgwGOCGRNIXRH1649-81-78 00:59:00 Test Item Value Reference Range Interpretation Comments ACT (TEG) Rapid (test code = ACT (TEG) 89 s 86-118 Rapid) [facility] HospitalDxemvxzMFJWHFRIVP1816-68-72 00:59:00 Test Item Value Reference Range Interpretation Comments Angle Rapid (test code = Angle 82 degrees 64-80 Rapid) [facility] Hospit[id number] 00:59:00 Test Item Value Reference Range Interpretation Comments PTT (test code = PTT) 37.2 s 22.9-35.8 [facility] H[id number] 00:59:00 Test Item Value Reference Range Interpretation Comments INR (test code = INR) 1.00 1 0.85-1.17 [facility] Hospit[id number] 00:59:00 Test Item Value Reference Range Interpretation Comments PT (test code = PT) 13.0 s 12.0-14.[address] [facility] [id number] 00:59:00 Test Item Value Reference Range Interpretation Comments Antibody Scrn (test Negative (06/25/18 7:59 code = Antibody Scrn) PM) [facility] [id number] 00:59:00 Test Item Value Reference Range Interpretation Comments ABO/Rh (test code = ABO/Rh) O POS [facility]CARD[facility]AC [id number] 00:59:00 Test Item Value Reference Range Interpretation Comments Troponin-I (test code no gt See_Comment [Auto mated message] The = Troponin-I) system which g enerated this result transmit emory reference range : <=0.40. The reference r efren was not used to interpr et this result as dori l/abnormal. [facility]2019-03-19 00:59:00 Test Item Value Reference Range Interpretation Comments Lactic Acid Lvl (test code = Lactic 1.2 0.5-2.2 Acid Lvl) [facility] HospitalAcfqtiaTPHXNGGMOM0945-06-57 00:59:00 Test Item Value Reference Range Interpretation Comments Eosinophils (test code = 0.2 See_Comment [A utomated message] The Eosinophils) system which ge nerated this result tra nsmitted reference range : <=4.0. The reference r efren was not used to int erpret this result as normal/abnormal . [facility] HospitalCgcrzvpKPPWAOQVLF7086-10-55 00:59:00 Test Item Value Reference Range Interpretation Comments Estimated % Lysis Rapid 0.0 See_Comment [Au tomated message] The (test code = Estimated syste m which generated % Lysis Rapid) this result t ransmitted reference range : <=7.5. The reference r efren was not used to int erpret this result as normal/abnormal . [facility] HospitalTwobxgbEYRWKUWBVB9527-66-97 00:59:00 Test Item Value Reference Range Interpretation Comments R-time Rapid (test code = R-time 0.4 min 0.4-0.7 Rapid) [facility] HospitalNgcgpurEOUAXNZSAK8848-37-61 00:59:00 Test Item Value Reference Range Interpretation Comments K-time Rapid (test code = K-time 0.8 min 0.6-2.3 Rapid) [facility] HospitalGzkzzupRCUAQVYFZC2538-76-19 00:59:00 Test Item Value Reference Range Interpretation Comments G-value Rapid (test code = G-value 15.7 5.0-11.6 Rapid) [facility] HospitalWpnomwpIQDAVTNYPL0931-57-89 00:59:00 Test Item Value Reference Range Interpretation Comments Max Amplitude Rapid (test code = Max 76 mm 52-71 Amplitude Rapid) [facility] HospitalRtgkmrxCBJWJGGNCH6561-10-13 00:59:00 Test Item Value Reference Range Interpretation Comments Split Point Rapid (test code = Split 0.4 min Point Rapid) [facility] HospitalFfhknizPZEQLTYVMC7793-64-29 00:59:00 Test Item Value Reference Range Interpretation Comments ACT (TEG) Rapid (test code = ACT (TEG) 89 s 86-118 Rapid) [facility] HospitalXvvlwbhSNOGWMTJND3119-52-11 00:59:00 Test Item Value Reference Range Interpretation Comments Angle Rapid (test code = Angle 82 degrees 64-80 Rapid) [facility] H[id number] 00:59:00 Test Item Value Reference Range Interpretation Comments PTT (test code = PTT) 37.2 s 22.9-35.8 [facility] HospitalPszotucETXTNORGBQ6528-24-00 00:59:00 Test Item Value Reference Range Interpretation Comments INR (test code = INR) 1.00 1 0.85-1.17 [facility] HospitalExylssrAQLGHBDAFZ5673-28-65 00:59:00 Test Item Value Reference Range Interpretation Comments PT (test code = PT) 13.0 s 12.0-14.7 [facility] Notes Date/Time Note Provider Source 2022-12-15 Formatting of this note might be differe nt from the original. Kenneth Mejia [facility] 14:08:13-00:00 Patient given written and ve rbal dc instructions. Explained to family. Follow up with pcp and cardiology. Taken out via wheel chair. RN 2022-12-15 Formatting of this note might be differe nt from the original. Daniela Armstrong RN [facility] 09:58:00-00:00 CC: patient presents to the ER with complaints of covid exposure, headache, vomiting, and fast heart rate. EMS states patient went into SVT en route which was resolved upon entrance to ER. EMS administered 250 mL NS and 4 mg zofran. PMHx: see history Awake, alert, oriented, resp reg unlabored, skin warm and dry, color appropriate for race, moves all ext without difficulty, amb without assistance. Appears in no distress. 2022-11-17 Formatting of this note is different from the or iginal. [facility] 10:30:00-00:00 Images from the original note were not included. Venipuncture collection perf ormed by clean technique on the left anticubitus. Total of 1 attempts were made. Slight pressure and a bandage/dressing were applied to the site(s). The patient experienced n o complications. The followi ng specimens were processed according to instructions and sent to [facility] laboratories per lab order on 11/17/2022 : LT BLUE SST 1 RED LAV 2 PPT DK GREEN (LiHep) DK GREEN (SodH) CHRISTENSEN DK BLUE (K2) DK BLUE (S) ACD Blood Culture NIPT/NTD Electronically signed by Gaby Packer at 0 11/17/2022 10:38 AM CDT 2018-07-12 EXAM: CT BRAIN KHADAR MAYORGA Marcelo 09:07:00-00:00 DATE: 07/12/2018 at 9:06 CLINICAL INFORMATION: Histor [...] in the mass effect with minimal residual lallt-uy-jluk midline shift. Stable appearance of the brain parenchyma. Embolization material in the region of the right middle meningeal artery. IMPRESSION: Interval decrease in the rig ht hemispheric subdural hematoma with trace residual measuring 6 mm in greatest thickness 2018-07-12 EXAM: CT BRAIN KHADAR MAYORGA Marcelo 09:07:00-00:00 DATE: 07/12/2018 at 9:06 CLINICAL INFORMATION: Histor [...] in the mass effect with minimal residual ilqou-nu-zbek midline shift. Stable appearance of the brain parenchyma. Embolization material in the region of the right middle meningeal artery. IMPRESSION: Interval decrease in the rig ht hemispheric subdural hematoma with trace residual measuring 6 mm in greatest thickness 2018-07-12 EXAM: CT BRAIN MUKESH Robertson 09:07:00-00:00 DATE: 07/12/2018 at 9:06 CLINICAL INFORMATION: Histor [...] in the mass effect with minimal residual mjpzz-ir-nxfb midline shift. Stable appearance of the brain parenchyma. Embolization material in the region of the right middle meningeal artery. IMPRESSION: Interval decrease in the rig ht hemispheric subdural hematoma with trace residual measuring 6 mm in greatest thickness 2018-07-12 EXAM: CT BRAIN MUKESH Robertson 09:07:00-00:00 DATE: 07/12/2018 at 9:06 CLINICAL INFORMATION: Histor [...] in the mass effect with minimal residual ntiuo-yz-cfvc midline shift. Stable appearance of the brain parenchyma. Embolization material in the region of the right middle meningeal artery. IMPRESSION: Interval decrease in the rig ht hemispheric subdural hematoma with trace residual measuring 6 mm in greatest thickness 2018-07-12 EXAM: CT BRAIN MUKESH Robertson 09:07:00-00:00 DATE: 07/12/2018 at 9:06 CLINICAL INFORMATION: Histor [...] in the mass effect with minimal residual rufju-xt-cmfn midline shift. Stable appearance of the brain parenchyma. Embolization material in the region of the right middle meningeal artery. IMPRESSION: Interval decrease in the rig ht hemispheric subdural hematoma with trace residual measuring 6 mm in greatest thickness 2018-07-12 EXAM: CT BRAIN MUKESH Robertson 09:07:00-00:00 DATE: 07/12/2018 at 9:06 CLINICAL INFORMATION: Histor [...] in the mass effect with minimal residual khswz-lw-fbyw midline shift. Stable appearance of the brain parenchyma. Embolization material in the region of the right middle meningeal artery. IMPRESSION: Interval decrease in the rig ht hemispheric subdural hematoma with trace residual measuring 6 mm in greatest thickness 2018-07-12 EXAM: CT BRAIN MUKESH Robertson 09:07:00-00:00 DATE: 07/12/2018 at 9:06 CLINICAL INFORMATION: Histor [...] in the mass effect with minimal residual pssjk-dv-tofo midline shift. Stable appearance of the brain parenchyma. Embolization material in the region of the right middle meningeal artery. IMPRESSION: Interval decrease in the rig ht hemispheric subdural hematoma with trace residual measuring 6 mm in greatest thickness 2018-07-12 EXAM: CT BRAIN KHADAR Robertson 09:07:00-00:00 DATE: 07/12/2018 at 9:06 CLINICAL INFORMATION: Histor [...] in the mass effect with minimal residual qyzyp-nb-vhqi midline shift. Stable appearance of the brain parenchyma. Embolization material in the region of the right middle meningeal artery. IMPRESSION: Interval decrease in the rig ht hemispheric subdural hematoma with trace residual measuring 6 mm in greatest thickness 2018-06-28 PROCEDURE: [facility] 07:24:00-00:00 1. Diagnostic Cerebral Angiogram Center 2. 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 A 5-Cameroonian Vert catheter was coaxially advanced over a 0.035 Terumo Glidewire through the sheath into the aorta arch to select the below mentioned a rteries using roadmap techni que. Two-dimensional angiography was performed in biplane projections. After review of the angiogra [facility] data, 5000 units of heparin IV was given. A 6- Cameroonian Benchmark 071 guide catheter over 5-Cameroonian Penumbra Select Vert catheter over a 0.035 Terumo Glidewire was advanced into the aortic arch to ruthy ct the right external carotid artery. The diagnostic catheter was withdrawn. Next, using roadmap guidance, an [place] SL-10 microcatheter over a Synchro 2 soft [...] thromboembolic event. After review of the angiogra phy data, the catheter was withdrawn. Right femoral artery angiogram was performed and the catheter was removed. The femoral artery sheath was removed and closed by the appli cation of a Mynx closure dev ice. Post procedure neurological examination was at the [...] Mynx vascular closure device COILS: Axium Prime [place] 2mm x 8cm Axium Prime [place] 2mm x 8cm Axium Prime [place] 2.5mm x 8cm Axium Prime [place] 3mm x 8cm Axium Prime [place] 3mm x 8cm Axium Prime [place] 4mm x 6cm EMBOSPHERE: 100-300 um PRE-TREATMENT [...] with a combination of embospheres and coils. 2018-06-28 PROCEDURE: [facility] 07:24:00-00:00 1. Diagnostic Cerebral Angiogram Center 2. 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 A 5-Cameroonian Vert catheter was coaxially advanced over a 0.035 Terumo Glidewire through the sheath into the aorta arch to select the below mentioned a rteries using roadmap techni que. Two-dimensional angiography was performed in biplane projections. After review of the angiogra [facility] data, 5000 units of heparin IV was given. A 6- Cameroonian Benchmark 071 guide catheter over 5-Cameroonian Penumbra Select Vert catheter over a 0.035 Terumo Glidewire was advanced into the aortic arch to ruthy ct the right external carotid artery. The diagnostic catheter was withdrawn. Next, using roadmap guidance, an [place] SL-10 microcatheter over a Synchro 2 soft microwire wa s advanced through the guide catheter into the right middle meningeal artery. Superselective runs of the right middle meningeal artery were performed to evaluate for any potential dangerous anastomoses. Distal branches of the [facility] t middle meningeal artery were then selected [...] thromboembolic event. After review of the angiogra phy data, the catheter was withdrawn. Right femoral artery angiogram was performed and the catheter was removed. The femoral artery sheath was removed and closed by the appli cation of a Mynx closure dev ice. Post procedure neurological examination was at the [...] Mynx vascular closure device COILS: Axium Prime [place] 2mm x 8cm Axium Prime [place] 2mm x 8cm Axium Prime [place] 2.5mm x 8cm Axium Prime [place] 3mm x 8cm Axium Prime [place] 3mm x 8cm Axium Prime [place] 4mm x 6cm EMBOSPHERE: 100-300 um PRE-TREATMENT [...] with a combination of embospheres and coils. 2018-06-28 PROCEDURE: [facility] 07:24:00-00:00 1. Diagnostic Cerebral Angiogram Center 2. 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 A 5-Cameroonian Vert catheter was coaxially advanced over a 0.035 Terumo Glidewire through the sheath into the aorta arch to select the below mentioned a rteries using roadmap techni que. Two-dimensional angiography was performed in biplane projections. After review of the angiogra [facility] data, 5000 units of heparin IV was given. A 6- Cameroonian Benchmark 071 guide catheter over 5-Cameroonian Penumbra Select Vert catheter over a 0.035 Terumo Glidewire was advanced into the aortic arch to ruthy ct the right external carotid artery. The diagnostic catheter was withdrawn. Next, using roadmap guidance, an [place] SL-10 microcatheter over a Synchro 2 soft [...] thromboembolic event. After review of the angiogra [facility] data, the catheter was withdrawn. Right femoral artery angiogram was performed and the catheter was removed. The femoral artery sheath was removed and closed by the appli cation of a Mynx closure dev ice. Post procedure neurological examination was at the [...] Mynx vascular closure device COILS: Axium Prime [place] 2mm x 8cm Axium Prime [place] 2mm x 8cm Axium Prime [place] 2.5mm x 8cm Axium Prime [place] 3mm x 8cm Axium Prime [place] 3mm x 8cm Axium Prime [place] 4mm x 6cm EMBOSPHERE: 100-300 um PRE-TREATMENT [...] with a combination of embospheres and coils. 2018-06-28 PROCEDURE: [facility] 07:24:00-00:00 1. Diagnostic Cerebral Angiogram Center 2. 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 A 5-Cameroonian Vert catheter was coaxially advanced over a 0.035 Terumo Glidewire through the sheath into the aorta arch to select the below mentioned a rteries using roadmap techni que. Two-dimensional angiography was performed in biplane projections. After review of the angiogra [facility] data, 5000 units of heparin IV was given. A 6- Cameroonian Benchmark 071 guide catheter over 5-Cameroonian Penumbra Select Vert catheter over a 0.035 Terumo Glidewire was advanced into the aortic arch to ruthy ct the right external carotid artery. The diagnostic catheter was withdrawn. Next, using roadmap guidance, an [place] SL-10 microcatheter over a Synchro 2 soft [...] thromboembolic event. After review of the angiogra phy data, the catheter was withdrawn. Right femoral artery angiogram was performed and the catheter was removed. The femoral artery sheath was removed and closed by the appli cation of a Mynx closure dev ice. Post procedure neurological examination was at the [...] Mynx vascular closure device COILS: Axium Prime [place] 2mm x 8cm Axium Prime [place] 2mm x 8cm Axium Prime [place] 2.5mm x 8cm Axium Prime [place] 3mm x 8cm Axium Prime [place] 3mm x 8cm Axium Prime [place] 4mm x 6cm EMBOSPHERE: 100-300 um PRE-TREATMENT [...] with a combination of embospheres and coils. 2018-06-28 PROCEDURE: [facility] 07:24:00-00:00 1. Diagnostic Cerebral Angiogram Center 2. 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 A 5-Cameroonian Vert catheter was coaxially advanced over a 0.035 Terumo Glidewire through the sheath into the aorta arch to select the below mentioned a rteries using roadmap techni que. Two-dimensional angiography was performed in biplane projections. After review of the angiogra [facility] data, 5000 units of heparin IV was given. A 6- Cameroonian Benchmark 071 guide catheter over 5-Cameroonian Penumbra Select Vert catheter over a 0.035 Terumo Glidewire was advanced into the aortic arch to ruthy ct the right external carotid artery. The diagnostic catheter was withdrawn. Next, using roadmap guidance, an [place] SL-10 microcatheter over a Synchro 2 soft [...] thromboembolic event. After review of the angiogra [facility] data, the catheter was withdrawn. Right femoral artery angiogram was performed and the catheter was removed. The femoral artery sheath was removed and closed by the appli cation of a Mynx closure dev ice. Post procedure neurological examination was at the [...] Mynx vascular closure device COILS: Axium Prime [place] 2mm x 8cm Axium Prime [place] 2mm x 8cm Axium Prime [place] 2.5mm x 8cm Axium Prime [place] 3mm x 8cm Axium Prime [place] 3mm x 8cm Axium Prime [place] 4mm x 6cm EMBOSPHERE: 100-300 um PRE-TREATMENT [...] POST-TREATMENT FINDINGS: 1. Right external carotid ar naibla: Right external carotid artery injection reveals complete [...] with a combination of embospheres and coils. 2018-06-28 PROCEDURE: [facility] 07:24:00-00:00 1. Diagnostic Cerebral Angiogram Center 2. 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 A 5-Cameroonian Vert catheter was coaxially advanced over a 0.035 Terumo Glidewire through the sheath into the aorta arch to select the below mentioned a rteries using roadmap techni que. Two-dimensional angiography was performed in biplane projections. After review of the angiogra [facility] data, 5000 units of heparin IV was given. A 6- Cameroonian Benchmark 071 guide catheter over 5-Cameroonian Penumbra Select Vert catheter over a 0.035 Terumo Glidewire was advanced into the aortic arch to ruthy ct the right external carotid artery. The diagnostic catheter was withdrawn. Next, using roadmap guidance, an [place] SL-10 microcatheter over a Synchro 2 soft [...] thromboembolic event. After review of the angiogra phy data, the catheter was withdrawn. Right femoral artery angiogram was performed and the catheter was removed. The femoral artery sheath was removed and closed by the appli cation of a Mynx closure dev ice. Post procedure neurological examination was at the [...] Mynx vascular closure device COILS: Axium Prime [place] 2mm x 8cm Axium Prime [place] 2mm x 8cm Axium Prime [place] 2.5mm x 8cm Axium Prime [place] 3mm x 8cm Axium Prime [place] 3mm x 8cm Axium Prime [place] 4mm x 6cm EMBOSPHERE: 100-300 um PRE-TREATMENT [...] with a combination of embospheres and coils. 2018-06-28 PROCEDURE: [facility] 07:24:00-00:00 1. Diagnostic Cerebral Angiogram Center 2. 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 A 5-Cameroonian Vert catheter was coaxially advanced over a 0.035 Terumo Glidewire through the sheath into the aorta arch to select the below mentioned a rteries using roadmap techni que. Two-dimensional angiography was performed in biplane projections. After review of the angiogra [facility] data, 5000 units of heparin IV was given. A 6- Cameroonian Benchmark 071 guide catheter over 5-Cameroonian Penumbra Select Vert catheter over a 0.035 Terumo Glidewire was advanced into the aortic arch to ruthy ct the right external carotid artery. The diagnostic catheter was withdrawn. Next, using roadmap guidance, an [place] SL-10 microcatheter over a Synchro 2 soft microwire wa s advanced through the guide catheter into the right middle meningeal artery. Superselective runs of the right middle meningeal artery were performed to evaluate for any potential dangerous anastomoses. Distal branches of the [facility] t middle meningeal artery were then selected [...] thromboembolic event. After review of the angiogra phy data, the catheter was withdrawn. Right femoral artery angiogram was performed and the catheter was removed. The femoral artery sheath was removed and closed by the appli cation of a Mynx closure dev ice. Post procedure neurological examination was at the [...] Mynx vascular closure device COILS: Axium Prime [place] 2mm x 8cm Axium Prime [place] 2mm x 8cm Axium Prime [place] 2.5mm x 8cm Axium Prime [place] 3mm x 8cm Axium Prime [place] 3mm x 8cm Axium Prime [place] 4mm x 6cm EMBOSPHERE: 100-300 um PRE-TREATMENT [...] with a combination of embospheres and coils. 2018-06-28 PROCEDURE: [facility] 07:24:00-00:00 1. Diagnostic Cerebral Angiogram Center 2. 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 A 5-Cameroonian Vert catheter was coaxially advanced over a 0.035 Terumo Glidewire through the sheath into the aorta arch to select the below mentioned a rteries using roadmap techni que. Two-dimensional angiography was performed in biplane projections. After review of the angiogra [facility] data, 5000 units of heparin IV was given. A 6- Cameroonian Benchmark 071 guide catheter over 5-Cameroonian Penumbra Select Vert catheter over a 0.035 Terumo Glidewire was advanced into the aortic arch to ruthy ct the right external carotid artery. The diagnostic catheter was withdrawn. Next, using roadmap guidance, an [place] SL-10 microcatheter over a Synchro 2 soft [...] thromboembolic event. After review of the angiogra [facility] data, the catheter was withdrawn. Right femoral artery angiogram was performed and the catheter was removed. The femoral artery sheath was removed and closed by the appli cation of a Mynx closure dev ice. Post procedure neurological examination was at the [...] Mynx vascular closure device COILS: Axium Prime [place] 2mm x 8cm Axium Prime [place] 2mm x 8cm Axium Prime [place] 2.5mm x 8cm Axium Prime [place] 3mm x 8cm Axium Prime [place] 3mm x 8cm Axium Prime [place] 4mm x 6cm EMBOSPHERE: 100-300 um PRE-TREATMENT [...] with a combination of embospheres and coils. 2018-06-26 EXAM: XR CHEST [address] [facility] 02:58:00-00:00 DATE: 06/26/2018 2:58 CDT Center INDICATION: pre-op clearance - pre-op clearance. FINDINGS: A single AP semier ect view of the chest is submitted without a prior study for comparison. The patient is rotated to th e left, causing leftward shift of the heart and mediastinum. There is bibasilar subsegmental atelectasis. No pleural effusions. IMPRESSION: Bibasilar subsegmental atelectasis. 2018-06-26 EXAM: XR CHEST 1 VIEW [facility] 02:58:00-00:00 DATE: 06/26/2018 2:58 CDT Center INDICATION: pre-op clearance - pre-op clearance. FINDINGS: A single AP semier ect view of the chest is submitted without a prior study for comparison. The patient is rotated to th e left, causing leftward shift of the heart and mediastinum. There is bibasilar subsegmental atelectasis. No pleural effusions. IMPRESSION: Bibasilar subsegmental atelectasis. 2018-06-26 [facility]AM: [facility] DATE: 06/26/2018 2:58 CDT Center INDICATION: pre-op clearance - pre-op clearance. FINDINGS: A single AP semier ect view of the chest is submitted without a prior study for comparison. The patient is rotated to th e left, causing leftward shift of the heart and mediastinum. There is bibasilar subsegmental atelectasis. No pleural effusions. IMPRESSION: Bibasilar subsegmental atelectasis. 2018-06-26 EXAM: [facility] 02:58:00-00:00 DATE: 06/26/2018 2:58 CDT Center INDICATION: pre-op clearance - pre-op clearance. FINDINGS: A single AP semier ect view of the chest is submitted without a prior study for comparison. The patient is rotated to th e left, causing leftward shift of the heart and mediastinum. There is bibasilar subsegmental atelectasis. No pleural effusions. IMPRESSION: Bibasilar subsegmental atelectasis. 2018-06-26 EXAM: [facility]ST [facility] 02:58:00-00:00 DATE: 06/26/2018 2:58 CDT Center INDICATION: pre-op clearance - pre-op clearance. FINDINGS: A single AP semier ect view of the chest is submitted without a prior study for comparison. The patient is rotated to th e left, causing leftward shift of the heart and mediastinum. There is bibasilar subsegmental atelectasis. No pleural effusions. IMPRESSION: Bibasilar subsegmental atelectasis. 2018-06-26 EXAM: [facility]ST [facility] 02:58:00-00:00 DATE: 06/26/2018 2:58 T Center INDICATION: pre-op clearance - pre-op clearance. FINDINGS: A single AP semier ect view of the chest is submitted without a prior study for comparison. The patient is rotated to th e left, causing leftward shift of the heart and mediastinum. There is bibasilar subsegmental atelectasis. No pleural effusions. IMPRESSION: Bibasilar subsegmental atelectasis. 2018-06-26 EXAM: XR CHEST [address] [facility] 02:58:00-00:00 DATE: 06/26/2018 2:58 T Center INDICATION: pre-op clearance - pre-op clearance. FINDINGS: A single AP semier ect view of the chest is submitted without a prior study for comparison. The patient is rotated to th e left, causing leftward shift of the heart and mediastinum. There is bibasilar subsegmental atelectasis. No pleural effusions. IMPRESSION: Bibasilar subsegmental atelectasis. 2018-06-26 EXAM: XR CHEST [address] [facility] 02:58:00-00:00 DATE: 06/26/2018 2:58 T Center INDICATION: pre-op clearance - pre-op clearance. FINDINGS: A single AP semier ect view of the chest is submitted without a prior study for comparison. The patient is rotated to th e left, causing leftward shift of the heart and mediastinum. There is bibasilar subsegmental atelectasis. No pleural effusions. IMPRESSION: Bibasilar subsegmental atelectasis. 2018-06-26 EXAM: US BILATERAL LOWER EXTREMITY VENOUS DOPPLE R [facility] 02:07:00-00:00 DATE: 06/26/2018 2:07 T Center INDICATION: Assessment for deep venous thrombosi [...] IMPRESSION: 1. No deep venous thrombosis (DVT). 2018-06-26 EXAM: US BILATERAL LOWER EXTREMITY VENOUS DOPPLE [facility] 02:07:00-00:00 DATE: 06/26/2018 2:07 CDT Center INDICATION: Assessment [...] IMPRESSION: 1. No deep venous thrombosis (DVT). 2018-06-26 EXAM: US BILATERAL LOWER EXTREMITY VENOUS DOPPLE [facility] 02:07:00-00:00 DATE: 06/26/2018 2:07 CDT Center INDICATION: Assessment [...] IMPRESSION: 1. No deep venous thrombosis (DVT). 2018-06-26 EXAM: US BILATERAL LOWER EXTREMITY VENOUS DOPPLE [facility] 02:07:00-00:00 DATE: 06/26/2018 2:07 CDT Center INDICATION: Assessment [...] IMPRESSION: 1. No deep venous thrombosis (DVT). 2018-06-26 EXAM: US BILATERAL LOWER EXTREMITY VENOUS DOPPLE [facility] 02:07:00-00:00 DATE: 06/26/2018 2:07 CDT Center INDICATION: Assessment [...] IMPRESSION: 1. No deep venous thrombosis (DVT). 2018-06-26 EXAM: US BILATERAL LOWER EXTREMITY VENOUS DOPPLE [facility] 02:07:00-00:00 DATE: 06/26/2018 2:07 CDT Center INDICATION: Assessment [...] IMPRESSION: 1. No deep venous thrombosis (DVT). 2018-06-26 EXAM: US BILATERAL LOWER EXTREMITY VENOUS DOPPLE [facility] 02:07:00-00:00 DATE: 06/26/2018 2:07 CDT Center INDICATION: Assessment [...] IMPRESSION: 1. No deep venous thrombosis (DVT). 2018-06-26 EXAM: US BILATERAL LOWER EXTREMITY VENOUS DOPPLE R [facility] 02:07:00-00:00 DATE: 06/26/2018 2:07 CDT Center INDICATION: Assessment [...] IMPRESSION: 1. No deep venous thrombosis (DVT). 2018-06-25 EXAM: CT BRAIN [facility] 23:00:00-00:00 DATE: 06/25/2018 at 23:31 Center CLINICAL INFORMATION: [...] willam or brain herniation. IMPRESSION: Stable exam 2018-06-25 EXAM: CT BRAIN [facility] 23:00:00-00:00 DATE: 06/25/2018 at 23:31 Center CLINICAL INFORMATION: [...] willam or brain herniation. IMPRESSION: Stable exam 2018-06-25 EXAM: CT BRAIN [facility] 23:00:00-00:00 DATE: 06/25/2018 at 23:31 Center CLINICAL INFORMATION: [...] willam or brain herniation. IMPRESSION: Stable exam 2018-06-25 EXAM: CT BRAIN [facility] 23:00:00-00:00 DATE: 06/25/2018 at 23:31 Center CLINICAL INFORMATION: [...] willam or brain herniation. IMPRESSION: Stable exam 2018-06-25 EXAM: CT BRAIN [facility] 23:00:00-00:00 DATE: 06/25/2018 at 23:31 Center CLINICAL INFORMATION: [...] willam or brain herniation. IMPRESSION: Stable exam 2018-06-25 EXAM: CT BRAIN [facility] 23:00:00-00:00 DATE: 06/25/2018 at 23:31 Center CLINICAL INFORMATION: [...] willam or brain herniation. IMPRESSION: Stable exam 2018-06-25 EXAM: CT BRAIN [facility] 23:00:00-00:00 DATE: 06/25/2018 at 23:31 Center CLINICAL INFORMATION: [...] willam or brain herniation. IMPRESSION: Stable exam 2018-06-25 EXAM: CT BRAIN [facility] 23:00:00-00:00 DATE: 06/25/2018 at 23:31 Center CLINICAL INFORMATION: [...] willam or brain herniation. IMPRESSION: Stable exam 2018-06-25 EXAM: CT CERVICAL SPINE WITHOUT CONTRAST [facility] 20:15:00-00:00 DATE: 06/25/2018 at 0000 hours Ce nter INDICATION: - fall, second interpretation reques emory COMPARISON: None. TECHNIQUE: Noncontrast CT im ages of the cervical spine, obtained at [facility]. Axial, sagittal and coronal images provided. UT [...] No acute fracture or malalignment the cervical [facility] 2018-06-25 EXAM: CT CERVICAL SPINE WITHOUT CONTRAST [facility] 20:15:00-00:00 DATE: 06/25/2018 at 0000 hours Ce nter INDICATION: - fall, second interpretation reques emory COMPARISON: None. TECHNIQUE: Noncontrast CT im ages of the cervical spine, obtained at [facility]. Axial, sagittal and coronal images provided. UT [...] No acute fracture or malalignment the cervical [facility] 2018-06-25 EXAM: CT CERVICAL SPINE WITHOUT CONTRAST [facility] 20:15:00-00:00 DATE: 06/25/2018 at 0000 hours Ce nter INDICATION: - fall, second interpretation reques emory COMPARISON: None. TECHNIQUE: Noncontrast CT im ages of the cervical spine, obtained at [facility]. Axial, sagittal and coronal images provided. UT [...] No acute fracture or malalignment the cervical [facility] 2018-06-25 EXAM: CT CERVICAL SPINE WITHOUT CONTRAST [facility] 20:15:00-00:00 DATE: 06/25/2018 at 0000 hours Ce nter INDICATION: - fall, second interpretation reques emory COMPARISON: None. TECHNIQUE: Noncontrast CT im ages of the cervical spine, obtained at [facility]. Axial, sagittal and coronal images provided. UT [...] No acute fracture or malalignment the cervical [facility] 2018-06-25 EXAM: CT CERVICAL SPINE WITHOUT CONTRAST [facility] 20:15:00-00:00 DATE: 06/25/2018 at 0000 hours Ce nter INDICATION: - fall, second interpretation reques emory COMPARISON: None. TECHNIQUE: Noncontrast CT im ages of the cervical spine, obtained at [facility]. Axial, sagittal and coronal images provided. UT [...] No acute fracture or malalignment the cervical [facility] 2018-06-25 EXAM: CT CERVICAL SPINE WITHOUT CONTRAST [facility] 20:15:00-00:00 DATE: 06/25/2018 at 0000 hours Ce nter INDICATION: - fall, second interpretation reques emory COMPARISON: None. TECHNIQUE: Noncontrast CT im ages of the cervical spine, obtained at [facility]. Axial, sagittal and coronal images provided. UT [...] No acute fracture or malalignment the cervical [facility] 2018-06-25 EXAM: CT CERVICAL SPINE WITHOUT CONTRAST [facility] 20:15:00-00:00 DATE: 06/25/2018 at 0000 hours Ce nter INDICATION: - fall, second interpretation reques emory COMPARISON: None. TECHNIQUE: Noncontrast CT im ages of the cervical spine, obtained at [facility]. Axial, sagittal and coronal images provided. UT [...] No acute fracture or malalignment the cervical [facility] 2018-06-25 EXAM: CT CERVICAL SPINE WITHOUT CONTRAST [facility] 20:15:00-00:00 DATE: 06/25/2018 at 0000 hours Ce nter INDICATION: - fall, second interpretation reque sted COMPARISON: None. TECHNIQUE: Noncontrast CT im ages of the cervical spine, obtained at [facility]. Axial, sagittal and coronal images provided. UT [...] No acute fracture or malalignment the cervical [facility] 2018-06-25 EXAM: CT BRAIN [facility] 19:48:00-00:00 DATE: 06/25/2018 Center CLINICAL INFORMATION: - Fall [...] Thin tentorial and interhemispheric subdural hem atoma. 2018-06-25 EXAM: CT BRAIN [facility] 19:48:00-00:00 DATE: 06/25/2018 Center CLINICAL INFORMATION: - Fall [...] Thin tentorial and interhemispheric subdural hem atoma. 2018-06-25 EXAM: CT BRAIN [facility] 19:48:00-00:00 DATE: 06/25/2018 Center CLINICAL INFORMATION: - Fall [...] Thin tentorial and interhemispheric subdural hem atoma. 2018-06-25 EXAM: CT BRAIN [facility] 19:48:00-00:00 DATE: 06/25/2018 Center CLINICAL INFORMATION: - Fall [...] Thin tentorial and interhemispheric subdural hem atoma. 2018-06-25 EXAM: CT BRAIN [facility] 19:48:00-00:00 DATE: 06/25/2018 Center CLINICAL INFORMATION: - Fall [...] Thin tentorial and interhemispheric subdural hem atoma. 2018-06-25 EXAM: CT BRAIN [facility] 19:48:00-00:00 DATE: 06/25/2018 Center CLINICAL INFORMATION: - Fall [...] Thin tentorial and interhemispheric subdural hem atoma. 2018-06-25 EXAM: CT BRAIN [facility] 19:48:00-00:00 DATE: 06/25/2018 Center CLINICAL INFORMATION: - Fall [...] Thin tentorial and interhemispheric subdural hem atoma. 2018-06-25 EXAM: CT BRAIN [facility] 19:48:00-00:00 DATE: 06/25/2018 Center CLINICAL INFORMATION: - Fall outside consult COMPARISON: None TECHNIQUE: Axial images of t he brain were obtained from the skull base through the vertex without contrast material administration. DLP: Brayan DISCUSSION: Mixed density right hemisphe keira subdural hematoma measuring 10 mm in greatest thickness resulting in mild mass effect upon the right cerebral hemisphere. 5 mm right to left midline shift. Hyperdensity along the tento rium and posterior interhemispheric fissure due to trace subdural hemorrhage. No acute bony lesions. Paranasal sinuses are dodie ar.
[2022-12-23] MEDS ORDERED: dexAMETHasone 4 MG TAB ONE (20:51)
--- NOTE | 2022-12-23 21:43 | P.HP ---
Certification for Inpatient Patient admitted to: Observation With expected LOS: <2 Midnights Patient will require the following post-hospital care: None Practitioner: I am a practitioner with admitting privileges, knowledge of patient current condition, hospital course, and medical plan of care. Services: Services provided to patient in accordance with Admission requirements found in Title 42 Section 412.3 of the Code of Federal Regulations Patient History Date of Service: 12/23/22 Reason for admission: COVID pneumonia, weakness, vomiting History of Present Illness: 81-year-old male with distant history of liver transplant around 1999, hypertension presents to the emergency department with chief complaint of vomiting, weakness. He reportedly tested positive for COVID on 12/22/2022 and is since been having vomiting and has not been able to get around. He lives at home with his family. He was evaluated in the emergency department his labs we re significant for white blood cell count 5.9 hemoglobin 12.7 medic at 38 creatinine 2.77 GFR 23, baseline creatinine is around 2.3. Chest x-ray showed concern for mild bilateral pneumonia which is likely viral in nature. Patient be admitted for COVID-19 pneumonia, weakness, vomiting. Allergies Iodinated Contrast Media [Iodinated Contrast Media - IV Dye] Allergy (Verified 07/31/17 18:23) Hives/Rash Home Medications: Metoprolol Succinate [Toprol Xl] 1 tab PO BID 05/06/15 Sirolimus [Rapamune] 1 tab PO DAILY 05/06/15 allopurinoL [Allopurinol] 1 tab PO BID 05/06/15 mycophenolate mofetiL [Mycophenolate Mofetil] 1 cap PO BID 05/06/15 Areds 2 tab PO BID 02/10/18 Cholecalciferol (Vitamin D3) [D3-50] 50,000 unit PO BID 02/10/18 Docosahexanoic AC/Epa [Fish Oil 1,000 MG*] 1,000 mg PO DAILY 02/10/18 Folic Acid [FA-8] 0.8 mg PO DAILY 02/10/18 Lactobacil 2/Bifido 1/S.thermo [Vsl#3 450B Cell Packet] 1 each PO DAILY 02/10/18 Psyllium Husk/Aspartame [Metamucil Powder] 1,040 gm PO BID 02/10/18 ondansetron HCL [Zofran] 4 mg PO BIDP PRN #20 tablet 02/11/18 Latanoprost Ophth [Xalatan 0.005%*] 1 drops EACH EYE DAILY 10/07/19 timoloL maleate [Timolol Maleate] 1 drops EACH EYE DAILY 10/07/19 - Past Medical/Surgical History Diabetic: No -: pulmonary embolism x2 -: hepatitis -: Renal Disease -: Colon Cancer -: Kidney stones -: Liver transplant in 1998 -: Total colectomy with Ileo pouch -: partial colectomy -: Hernia repair -: Appendectomy -: Tonsillectomy - Family History Father -: Heart disease, Diabetes Mother -: Cancer, Liver disease Notes: from Liver cancer - Social History Alcohol use: Yes CD- Drugs: No Caffeine use: Yes Review of Systems 10-point ROS is otherwise unremarkable General: Chills, Weakness, Malaise Respiratory: Shortness of Breath Physical Examination - Physical Exam General: Alert, In no apparent distress, Oriented x3 HEENT: Atraumatic, PERRLA, Mucous membr. moist/pink, EOMI, Sclerae nonicteric Neck: Supple, 2+ carotid pulse no bruit, No LAD, Without JVD or thyroid abnormality Respiratory: Clear to auscultation bilaterally, Normal air movement Cardiovascular: Regular rate/rhythm, Normal S1 S2 Capillary refill: <2 Seconds Gastrointestinal: Normal bowel sounds, No tenderness Musculoskeletal: No tenderness Integumentary: No rashes Neurological: Normal speech, Normal strength at 5/5 x4 extr, Normal tone, Normal affect - Studies Laboratory Data (last 24 hrs) 12/23/22 12/23/22 12/23/22 19:40 19:40 19:40 WBC 5.90 Hgb 12.7 L Hct 38.0 L Plt Count 100 L Sodium 140 Potassium 3.8 BUN 49 H Creatinine 2.77 H Glucose 102 Total Bilirubin 0.5 AST 24 ALT 20 Alkaline Phosphatase 84 Assessment and Plan - Plan Assessment: COVID-19 pneumonia LINDA on CKD Distant history of liver transplant Hypertension Plan: COVID-19 pneumonia Continue Decadron daily, daily urinary saturations, supportive care. Pulmonology to see patient. LINDA on CKD Continue gentle IV fluids, monitor renal function daily, nephrology consult. Distant history of liver transplant And liver transplant in the year 1999 approximately, continue home medications once verified. Hypertension Continue home medications. DVT PPX: Lovenox Code status: Full Discharge Plan: Home Plan to discharge in: 24 Hours - Advance Directives Does patient have a Living Will: No Does patient have a Durable POA for Healthcare: No - Code Status/Comfort Care Code Status Assessed: Yes (Full code) Critical Care: No Time Spent Managing Pts Care (In Minutes): 55
[2022-12-23 21:57] VITALS: O2SAT 95
[2022-12-23 23:30] VITALS: BMI 20.9
[2022-12-23] MEDS ORDERED: ONDANSETRON 4 MG/2 ML VIAL IV PRN (23:45)
[2022-12-23] MEDS ORDERED: NA CHLORIDE 0.9% 1,000 ML IV SCH (23:45)
[2022-12-23] MEDS ORDERED: ACETAMINOPHEN 500 MG TAB PO PRN (23:45)
[2022-12-24] MEDS: HEPARIN 5000 UNIT/ML 1 ML VIAL SQ SCH ×2 (02:02→08:21)
[2022-12-24 03:43] LABS: Absolute Lymphocytes (CBC) 0.4 K/uL (0.7-4.9); Hematocrit 36.9 % (39.6-49.0); MCV 91.3 fL (80-100); MPV 7.3 fL (7.6-11.3); Platelets 96 thou/uL (152-406); RBC Red Blood Cell Count 4.04 M/uL (4.33-5.43)
[2022-12-24 04:09] LABS: Albumin 2.8 g/dL (3.4-5.0); Bilirubin Total 0.5 mg/dL (0.2-1.0); Potassium 4.4 mEq/L (3.5-5.1); Protein, Total 6.7 g/dL (6.4-8.2); Thyroid Stimulating Hormone 0.115 uIU/mL (0.358-3.740)
[2022-12-24] MEDS ORDERED: dexAMETHasone 4 MG TAB PO SCH (09:00)
[2022-12-24 09:25] VITALS: BP 186/96; TEMP 97
--- NOTE | 2022-12-24 10:47 | P.DS ---
Admission Date: 12/23/22 Discharge Date: 12/24/22 Disposition: ROUTINE DISCHARGE Discharge Condition: GOOD Reason for Admission: COVID pneumonia, weakness, vomiting Brief History of Present Illness: Patient is 82 years of age admitted with weakness tested positive for COVID Hospital Course: He was discharged in satisfactory condition patient is did not complain of any shortness of breath cough congestion vital signs all stable oxygenation satisfactory chest x-ray showed mild interstitial changes patient has chronic renal failure s/p liver transplant was discharged home on low-dose Decadron 2 mg a day otherwise his chest was clear cardiovascular system heart sounds normal he is to resume all his home medications Vital Signs/Physical Exam: Temp Pulse Resp BP Pulse Ox 97 F 70 18 186/96 H 98 12/24/22 08:00 12/24/22 08:00 12/24/22 08:00 12/24/22 08:00 12/24/22 08:00 Laboratory Data at Discharge: WBC 3.30 thou/uL (4.3-10.9) L 12/24/22 03:36 Hgb 12.7 g/dL (13.6-17.9) L 12/24/22 03:36 Hct 36.9 % (39.6-49.0) L 12/24/22 03:36 Plt Count 96 thou/uL (152-406) L 12/24/22 03:36 Sodium 141 mEq/L (136-145) 12/24/22 03:36 Potassium 4.4 mEq/L (3.5-5.1) D 12/24/22 03:36 BUN 50 mg/dL (7-18) H 12/24/22 03:36 Creatinine 2.61 mg/dL (0.70-1.30) H 12/24/22 03:36 Glucose 134 mg/dL (74-106) H 12/24/22 03:36 Total Bilirubin 0.5 mg/dL (0.2-1.0) 12/24/22 03:36 AST 21 U/L (15-37) 12/24/22 03:36 ALT 18 U/L (16-61) 12/24/22 03:36 Alkaline Phosphatase 78 U/L (45-117) 12/24/22 03:36 Home Medications: Metoprolol Succinate [Toprol Xl] 1 tab PO BID 05/06/15 Sirolimus [Rapamune] 1 tab PO DAILY 05/06/15 allopurinoL [Allopurinol] 1 tab PO BID 05/06/15 mycophenolate mofetiL [Mycophenolate Mofetil] 1 cap PO BID 05/06/15 Areds 2 tab PO BID 02/10/18 Cholecalciferol (Vitamin D3) [D3-50] 50,000 unit PO BID 02/10/18 Docosahexanoic AC/Epa [Fish Oil 1,000 MG*] 1,000 mg PO DAILY 02/10/18 Folic Acid [FA-8] 0.8 mg PO DAILY 02/10/18 Lactobacil 2/Bifido 1/S.thermo [Vsl#3 450B Cell Packet] 1 each PO DAILY 02/10/18 Psyllium Husk/Aspartame [Metamucil Powder] 1,040 gm PO BID 02/10/18 ondansetron HCL [Zofran] 4 mg PO BIDP PRN #20 tablet 02/11/18 Latanoprost Ophth [Xalatan 0.005%*] 1 drops EACH EYE DAILY 10/07/19 timoloL maleate [Timolol Maleate] 1 drops EACH EYE DAILY 10/07/19 dexAMETHasone [Dexamethasone] 2 mg PO DAILY 7 Days #7 tab 12/24/22 New Medications: dexAMETHasone [Dexamethasone] 2 mg PO DAILY 7 Days #7 tab Followup: NONE,NONE [Primary Care Provider] - 1 Week
--- NOTE | 2022-12-26 19:11 | EKG ---
Test Date: 2022-12-23 Test Time: 19:32:43 Media Relations Manager: SMITA MEASUREMENT RESULTS: Intervals: Rate: 93 [place]: 252 QRSD: 90 QT: 364 QTc: 452 [place]: P: 92 [place]: 252 QRS: 35 T: 94 INTERPRETIVE STATEMENTS: Sinus rhythm with 1st degree AV block and PVCs Otherwise normal ECG Compared to ECG 10/07/2019 13:25:08 Incomplete right bundle-branch block no longer present Electronically Signed On 12-26-22 19:07:21 CDT by Danish Brasher
== END 2022-12-24 11:20 | disposition home or self-care (01) ==
LOC: ER 19:25 → ERHOLD 20:43 → 4TH 21:26
PROVIDERS: ADMIT Internal Medicine Sleep Medicine; ATTEND Internal Medicine Sleep Medicine
DX: U07.1 COVID-19 (principal); J12.82 Pneumonia due to coronavirus disease 2019; N17.9 Acute kidney failure, unspecified; N18.9 Chronic kidney disease, unspecified; I10 Essential (primary) hypertension; R53.1 Weakness; R11.10 Vomiting, unspecified; Z94.4 Liver transplant status
CPT/HCPCS: 96361; 93005; 85025 ×2; 80048; 36415; 80076; 84443; 84439; 80053; 84145; 86140; 71045; 97116; 97161; 97530; 96374; 99285; J1644; J8540 ×2; J2405; J7040; J7030; G0378 ×3